=== PATIENT | female | born 1960 | race Caucasian/White ===

== ENCOUNTER → 2016-08-23 | Outpatient (CLI) | payer BC ==
[2014-08-14 03:32] VITALS: BP 174/72
[~2016-08-23] MED LIST: HYDR20TA17 PO; IBUP-1027 PO; IOHEXOL 180 MG/ML 10 ML VIAL. ONE; MULT1TAB52 PO; methylPREDNISolone ACETATE 40 MG/ML VIAL. ONE; methylPREDNISolone ACETATE 80 MG/ML VIAL. ONE
--- NOTE | 2016-08-23 23:55 | PAIN ---
DATE OF SERVICE: 08/23/2016 PROGRESS NOTE FOR PAIN CLINIC DIAGNOSIS: Lumbar radiculopathy with lumbar spinal stenosis, lumbar degenerative disk disease. HISTORY OF PRESENT ILLNESS: The patient is a 55-year-old female who returns for followup status post previous lumbar epidural steroid injections x 2, last seen 04/18/2016. The patient reports she did very well with 100% improvement initially. The pain has returned now over the past 3-4 weeks. The patient reports it is in the low back, bilateral lower extremities, ____ posterior gluteus, posterior thighs, radiating to the anterior thighs occasionally, but mostly in the posterior thighs and lower legs, aching, continuous pain, rates as a 6 on a scale of 10, still sleeping well at night, but is mostly noticeable with increased activity. She has been doing some yardwork with her as we have had some recent rain and better weather and has been increasing her activity with this and has caused some increased pain and radiation into the lower extremities and hips. The patient reports no new motor or sensory deficits, no new bowel or bladder incontinence or other complaints. PHYSICAL EXAMINATION: VITAL SIGNS: The patient's blood pressure is 136/76, pulse 67, respirations 16, temperature is 98.2 degrees Fahrenheit, height is 5 feet 3 inches, weight is 105 pounds. GENERAL: The patient is awake, alert, oriented, appropriate, has a very pleasant demeanor. HEENT: Shows normocephalic, atraumatic. Extraocular movements are intact and symmetrical. Oral cavity shows mucous membranes moist and pink. Dentition is intact. NECK: Shows anterior throat supple without palpable lymphadenopathy noted. Swallow reflex is symmetrical. CHEST: Shows normal on inspection. Breath sounds clear to auscultation bilaterally. HEART: Shows S1 and S2 clear. No murmurs auscultated. ABDOMEN: Soft, nontender, nondistended. No palpable organomegaly is noted. No rebound or guarding demonstrated. BACK: Shows spine grossly in the midline. Lumbar paraspinous musculature shows some moderate tenderness with palpation and very firm, tender musculature bilaterally in the middle and lower distribution of the paraspinous muscles, but only diffusely tender without radiation. The patient shows no tenderness over the sacrum or sacroiliac regions. EXTREMITIES: Lower extremities show deep tendon reflexes 2+ in the patellar and 1+ tendo calcaneus tendons. Motor exam is strong with 5/5 dorsiflexion, extension, quadriceps and hamstring flexion and is equal and symmetrical as well. PLAN: Options were discussed with the patient. The patient's old chart was reviewed as was her current medication regimen and updated. Current review of systems updated today as well. We will proceed with a third in the series of lumbar epidural steroid injection using C-arm fluoroscopic guidance. Risks were discussed including, but not limited to bleeding, infection, possibility of epidural hematoma, subsequent neurological compromise, dural puncture, headaches, spinal cord and/or nerve damage, side effects of steroid medication and poor results regarding pain control. The patient understands and wishes to proceed. The patient will return to the clinic in approximately 2 weeks for followup, was counseled as to return appointment, activity level and side effects to be aware of. DIAGNOSIS: Lumbar radiculopathy with lumbar spinal stenosis, lumbar degenerative disk disease. PROCEDURE: Lumbar epidural steroid injection in translaminar approach with C-arm fluoroscopic guidance under sterile prep and drape using local anesthetic at the L5-S1 level. MEDICATIONS INJECTED: 120 mg Depo-Medrol plus 10 mL of preservative free normal saline and 2 mL of Isovue for contrast. CONDITION AT DISCHARGE: Stable. The patient tolerated the procedure well, had no complications. TREVON FONTANEZ MD DR: KAYLIN/alonzo JOB#: [id number] / [id number]
== END | disposition home or self-care (01) ==
LOC: PNCL 09:33
PROVIDERS: ATTEND Anesthesiology
DX: M51.16 Intervertebral disc disorders with radiculopathy, lumbar region (principal); M48.06 Spinal stenosis, lumbar region
CPT/HCPCS: 62323; J1030; J1040

== ENCOUNTER → 2016-09-12 | Outpatient (CLI) | payer BC ==
[2014-08-14 03:32] VITALS: BP 174/72
[~2016-09-12] MED LIST changes: -IOHEXOL 180 MG/ML 10 ML VIAL. ONE; -methylPREDNISolone ACETATE 40 MG/ML VIAL. ONE; -methylPREDNISolone ACETATE 80 MG/ML VIAL. ONE
--- NOTE | 2016-09-13 02:57 | PN ---
DATE: 09/12/2016 PROGRESS NOTE FOR PAIN CLINIC DIAGNOSES: Lumbar radiculopathy with lumbar spinal stenosis, lumbar degenerative disk disease. HISTORY OF PRESENT ILLNESS: The patient is a 55-year-old female who returns for followup status post lumbar epidural steroid injections x 3, most recently on 08/23/2016. The patient reports doing very well 75% or better improvement after the last injection. The patient reports no new motor or sensory deficits, but some pain in the hips bilaterally with extended walking. [place] the [place] and was walking about 5-1/2 miles and after about the first 2 miles, she began having significant pain in the hips not necessarily in the back or legs, but in the bilateral hips. The patient reports she still has some pain in the back, but it is very manageable, rated as 3 on a scale of 10, but the hip pain is about 6 on a scale of 10. The patient reports it does not awaken her sleep at night. She is sleeping very well, better with lying down or sitting. After the last injection, but the pain in the hips, it is more of a constant pain, sharp and dull and aching when she is weightbearing. The patient has had no history of any hip pathology and has had no diagnostic studies with her hips, but otherwise doing fairly well. The patient reports no new motor or sensory deficits. No new bowel or bladder incontinence or other complaints. PHYSICAL EXAMINATION: VITAL SIGNS: Today, blood pressure is 122/78, pulse is 75, respirations are 18, temperature 99.0 degrees Fahrenheit, height is 5 feet 2 inches, weight is 104 pounds. GENERAL: The patient is awake, alert, oriented, appropriate, very pleasant demeanor. HEENT: Head shows normocephalic, atraumatic. Extraocular movements are intact and symmetrical. Oral cavity, mucous membranes moist and pink. Dentition intact. NECK: Shows anterior throat supple without palpable lymphadenopathy noted. Swallow reflex is symmetrical. CHEST: Shows normal on inspection. Breath sounds clear to auscultation bilaterally. HEART: Shows S1 and S2 clear. ABDOMEN: Soft, nontender, nondistended. No palpable organomegaly. No rebound or guarding demonstrated. BACK: Shows spine grossly in midline. Lumbar paraspinous muscle shows some mild tenderness with palpation only diffusely with palpation in the lower lumbar distribution. EXTREMITIES: The patient's lower extremities show deep tendon reflexes at 2+ in the patellar and 1+ tendo calcaneus tendons are equal. Motor exam is strong with 5/5 dorsiflexion, extension, quadriceps and hamstring flexion equal and symmetrical. The patient's hip shows good rotation and motion both actively and passively without any difficulty with abduction, anterior and posterior flexion. Julien's maneuvers are negative bilaterally. PLAN: Options were discussed with the patient. We will try Medrol Dosepak at this time. As she is eligible for further lumbar epidural steroid injections in September and we will see how the Dosepak does first. She was encouraged to increase her activity as tolerated and keep a diary of how the hip pain does prior to her next visit. We will see her back in about 2 weeks to see how she is feeling at that time. If not significantly improved, we decided we will take x-rays of the hips, but we will see how this does with the Medrol Ermias first. The patient was counseled on activity level as well as side effects to be aware of the medication. We will follow up as scheduled. TREVON FONTANEZ MD DR: KAYLIN/alonzo JOB#: [id number] / [id number]
== END | disposition home or self-care (01) ==
LOC: PNCL 10:10
PROVIDERS: ATTEND Anesthesiology
DX: M51.16 Intervertebral disc disorders with radiculopathy, lumbar region (principal); M48.06 Spinal stenosis, lumbar region
CPT/HCPCS: 99212

== ENCOUNTER → 2016-09-25 | Outpatient (CLI) | payer BC ==
[2014-08-14 03:32] VITALS: BP 174/72
[~2016-09-25] MED LIST changes: +IOHEXOL 180 MG/ML 10 ML VIAL. ONE; +methylPREDNISolone ACETATE 40 MG/ML VIAL. ONE; +methylPREDNISolone ACETATE 80 MG/ML VIAL. ONE
--- NOTE | 2016-09-26 02:19 | PAIN ---
DATE OF SERVICE: 09/25/2016 PROGRESS NOTE FOR PAIN CLINIC DIAGNOSES: Lumbar radiculopathy with lumbar degenerative disk disease and lumbar spinal stenosis. HISTORY OF PRESENT ILLNESS: The patient is a 55-year-old female who returns for followup status post previous lumbar epidural steroid injections. We tried Medrol Dosepak after last visit on 09/12/2016. The patient reports it has not helped significantly, would like to try another injection, this being the first in the series today. The patient is still with significant pain in low back, bilateral lower extremities, hips, anterior thighs, medial thighs, posterior thighs, gluteus and into the lower legs and the calf posteriorly anywhere from 5-9 on a scale of 10, currently of 5. The patient reports aching, sharp, dull, shooting, constant, severe becomes unbearable at times with activity, better with lying down, awakens her from sleep about once or twice at night. She has to get up out of bed and stretch a bit, exercise and get back to bed and she is generally able to sleep for about 4-5 hours at a time between these episodes. The patient reports no new motor or sensory deficits, no new bowel or bladder incontinence or other complaints. PHYSICAL EXAMINATION: VITAL SIGNS: The patient's blood pressure 119/76, pulse 99, and respirations are 18, temperature 98.0 degrees Fahrenheit. Height is 5 feet 3 inches, weight is 103 pounds. GENERAL: The patient is awake, alert, oriented, appropriate, very pleasant demeanor. HEENT: Shows normocephalic, atraumatic. Extraocular movements are intact and symmetrical. Oral cavity shows mucous membranes moist and pink. Dentition is intact. NECK: Shows anterior throat supple without palpable lymphadenopathy noted. Swallow reflex is symmetrical. CHEST: Shows normal on inspection. Breath sounds are clear to auscultation bilaterally. HEART: Shows S1 and S2 clear. No murmurs auscultated. ABDOMEN: Soft, nontender, nondistended. No palpable organomegaly is noted. No rebound or guarding demonstrated. BACK: Shows spine grossly midline, slight flattening of lumbar lordotic curvature with normal appearing thoracic kyphotic curvature. With inspection, lumbar paraspinous muscle shows symmetrical, with palpation is very firm, but with normal muscle girth, but tender diffusely throughout the middle and lower distribution of paraspinous muscles without radiation. No tenderness over the spinous processes, sacrum or sacroiliac regions. EXTREMITIES: The patient's lower extremities showed deep tendon reflexes at 2+ in the patellar, 1+ tendo-calcaneus tendons are equal. Motor exam is 5/5 with dorsiflexion, extension and equal bilaterally. Options were discussed with the patient and the patient's old chart was reviewed as her current medication regimen updated. Current review of systems updated today as well. We will proceed with a lumbar epidural steroid injection today with fluoroscopic guidance as the first in this series. Risks were again discussed including, but not limited to bleeding, infection, possibility of epidural hematoma, subsequent neurologic compromise, dural puncture, headaches, spinal cord and/or nerve damage, side effects of steroid medication and poor results regarding pain control. The patient understands and wishes to proceed. The patient will return to clinic in approximately 2 weeks for followup, was counseled on return appointment, activity level and side effects to be aware of. DIAGNOSES: Lumbar radiculopathy with lumbar spinal stenosis and degenerative disk disease. PROCEDURE: Lumbar epidural steroid injection in translaminar approach at the L5-S1 level using C-arm fluoroscopic guidance under sterile prep and drape using local anesthetic. MEDICATION INJECTED: 120 mg of Depo-Medrol plus 10 mL of preservative-free normal saline and 2 mL of Isovue for contrast. CONDITION AT DISCHARGE: Stable. The patient tolerated procedure well, had no complications. TREVON FONTANEZ MD DR: KAYLIN/alonzo JOB#: [id number] / [id number]
== END | disposition home or self-care (01) ==
LOC: PNCL 11:06
PROVIDERS: ATTEND Anesthesiology
DX: M51.16 Intervertebral disc disorders with radiculopathy, lumbar region (principal); M48.06 Spinal stenosis, lumbar region
CPT/HCPCS: 62323; J1030; J1040

== ENCOUNTER → 2016-10-23 | Outpatient (CLI) | payer BC ==
[2014-08-14 03:32] VITALS: BP 174/72
--- NOTE | 2016-10-24 01:01 | PN ---
DATE: 10/23/2016 PROGRESS NOTE FOR PAIN CLINIC DIAGNOSES: Lumbar radiculopathy with lumbar degenerative disk disease and lumbar spinal stenosis. HISTORY OF PRESENT ILLNESS: The patient is a 55-year-old female who returns for followup status post lumbar epidural steroid injection x 1 in the series. The patient reports about 75% improvement overall in her low back, bilateral lower extremity pain. The patient reports he was doing very well until about the last 2-3 days. The pain is again returning in the low back and legs, worse with walking and standing, ranging from 7-8 on a scale of 10. It is aching, constant, severe, but is on and off, is not persistent. The patient reports she has been sleeping well at night, pain awakens her occasionally, not every night, when does it is about every 2 hours. The patient reports this happened last night and the night before, but not for several weeks before that. The patient reports no new motor or sensory deficits, no new bowel or bladder incontinence or other complaints. PHYSICAL EXAMINATION: VITAL SIGNS: Today, blood pressure is 116/78, pulse 60, respirations are 18, temperature 98.1 degrees Fahrenheit. Height is 5 feet 3 inches, weight is 102 pounds. GENERAL: The patient is awake, alert, oriented, appropriate, has a very pleasant demeanor. HEENT: Head shows normocephalic, atraumatic. Extraocular movements are intact and symmetrical. Oral cavity shows mucous membranes moist and pink. Dentition is intact. NECK: Shows anterior throat supple without palpable lymphadenopathy noted. Swallow reflex is symmetrical. CHEST: Shows normal on inspection. Breath sounds clear to auscultation bilaterally. HEART: Shows S1 and S2 clear. ABDOMEN: Soft, nontender, nondistended. No palpable organomegaly. There is no rebound or guarding demonstrated. BACK: Shows spine grossly in the midline. Lumbar paraspinous muscle shows symmetrical with inspection. The patient has discoloration from heat pad use on the skin. With palpation, she has moderate tenderness with palpation throughout the middle and lower distribution of paraspinous muscle, only diffusely without radiation or asymmetry. No tenderness over the sacrum or sacroiliac regions or the spinous processes. The patient has good rotational motion of the lumbar spine, both laterally as well as extension and flexion without difficulty. EXTREMITIES: Lower extremities show deep tendon reflexes 2+, in the patellar 1+, tendo-calcaneus tendons are equal. Motor exam is strong with 5/5 dorsiflexion, extension, quadriceps and hamstring flexion and symmetrical. Options were discussed with the patient and the patient's old chart was reviewed as her current medication regimen updated. Current review of systems updated today as well. We will proceed with a second lumbar epidural steroid injection today with fluoroscopic guidance. Risks were again discussed including, but not limited to bleeding, infection, possibility of epidural hematoma and subsequent neurologic compromise, dural puncture, headaches, spinal cord and/or nerve damage, side effects of steroid medication and poor results regarding pain control. The patient understands and wishes to proceed. The patient will return to the clinic in approximately 2 weeks for followup, was counseled on return appointment, activity level and side effects to be aware of. DIAGNOSES: Lumbar radiculopathy with lumbar degenerative disk disease and lumbar spinal stenosis. PROCEDURE: Lumbar epidural steroid injection in translaminar approach at the L5-S1 level using C-arm fluoroscopic guidance under sterile prep and drape using local anesthetic. Medication injected is 120 mL Depo-Medrol plus 10 mL preservative free normal saline, 2 mL of Isovue for contrast. CONDITION AT DISCHARGE: Stable. The patient tolerated the procedure well, had no complications. TREVON FONTANEZ MD DR: KAYLIN/alonzo JOB#: [id number] / [id number]
== END | disposition home or self-care (01) ==
LOC: PNCL 07:35
PROVIDERS: ATTEND Anesthesiology
DX: M51.16 Intervertebral disc disorders with radiculopathy, lumbar region (principal); M48.06 Spinal stenosis, lumbar region
CPT/HCPCS: 62323; J1030; J1040

== ENCOUNTER → 2016-12-05 | Outpatient (CLI) | payer BC ==
[2014-08-14 03:32] VITALS: BP 174/72
== END | disposition home or self-care (01) ==
LOC: PNCL 09:11
PROVIDERS: ATTEND Anesthesiology
DX: M51.16 Intervertebral disc disorders with radiculopathy, lumbar region (principal); M48.06 Spinal stenosis, lumbar region
CPT/HCPCS: 62323; J1030; J1040

== ENCOUNTER → 2017-03-01 | Outpatient (CLI) | payer BC ==
[2014-08-14 03:32] VITALS: BP 174/72
[~2017-03-01] MED LIST changes: +BREO ELLIPTA 11 EACH IH; -IOHEXOL 180 MG/ML 10 ML VIAL. ONE; -methylPREDNISolone ACETATE 40 MG/ML VIAL. ONE; -methylPREDNISolone ACETATE 80 MG/ML VIAL. ONE
--- NOTE | 2017-03-01 10:44 | PAIN ---
DATE OF SERVICE: 03/01/2017 PROGRESS NOTE FOR PAIN CLINIC DIAGNOSES: Lumbar radiculopathy with lumbar spinal stenosis and lumbar degenerative disk disease. HISTORY OF PRESENT ILLNESS: The patient is a 56-year-old female who returns for followup status post lumbar epidural steroid injections x 3, most recently on 12/05/2016. The patient reports she had about 75% improvement overall with the injections and the last one was not quite effective as the first one, which was near 100%, which was back in September but doing better. The pain returning now, however, in the low back and bilateral lower extremities, essentially equal but sometimes right greater than left. The patient reports increasing with activity, standing, walking, changing positions, even sitting for more than 15-20 minutes. The patient reports it is better with lying down; however, the pain has almost completely gone. She sleeps well at night, does not having difficulty with it awakens her from sleep. The patient reports her pain at worst is 8 on a scale of 10, is a 5 on average and a 4 on a scale of 10 at the least and is 5 today. The patient reports an aching, sharp and constant in the low back, bilateral lower extremities, again somewhat more on the right side but present bilaterally, posterior gluteus, posterior thighs, lateral thigh and posterior lower legs. The patient reports no new injuries or accidents or other complaints currently. PAST MEDICAL HISTORY: Significant for breast cancer in 2004 with chemotherapy, history of arthritis and also cigarette smoking and the patient continues to smoke about a pack a day. PAST SURGICAL HISTORY: Previous surgeries include double mastectomy and hysterectomy. MEDICATIONS: Updated and well documented on the patient's chart today. ALLERGIES: The patient has no known drug allergies. FAMILY HISTORY: Significant for no major medical problems except for heart disease in her father and hypertension and COPD in the patient's mother. SOCIAL HISTORY: Again, she does smoke about half pack a day, does not drink alcohol, is , lives with her spouse locally. REVIEW OF SYSTEMS: The patient's review of systems is positive for those items mentioned in history of present illness. All systems reviewed and otherwise negative. It is complete, full and well documented on the patient's chart. PHYSICAL EXAMINATION: VITAL SIGNS: Today, the patient's blood pressure is 117/72, pulse 77, respirations 18, temperature 98.3 degrees Fahrenheit. Height is 5 feet 3 inches and weight is 103 pounds. GENERAL: The patient is awake, alert, oriented, appropriate and very pleasant demeanor. HEENT: Head shows normocephalic and atraumatic. Extraocular movements are intact and symmetrical. Oral cavity shows mucous membranes moist and pink. Dentition is intact. NECK: Shows anterior throat supple without palpable lymphadenopathy noted. Swallow reflex is symmetrical. CHEST: Shows normal on inspection. Breath sounds are clear to auscultation bilaterally. HEART: Shows S1 and S2 clear. No murmurs auscultated. ABDOMEN: Soft, nontender and nondistended. No palpable organomegaly. No rebound or guarding demonstrated. BACK: Shows spine grossly midline. Normal appearing thoracic kyphosis, cervical lordotic curvature and lumbar lordotic curvature appears slightly flattened. Lumbar paraspinous musculature shows some [id number] tenderness with palpation but only diffusely in the mid and low lumbar distribution but is quite firm and moderately tender. The patient shows no tenderness over the sacrum or sacroiliac regions. LOWER EXTREMITIES: Showed deep tendon reflexes at 2+ in the patellar and 1+ tendo-calcaneus tendons, are equal. Motor exam is strong with 5/5 dorsiflexion and extension. Peripheral pulses are 2+ in the posterior tibial and dorsalis pedis pulses. No peripheral edema is noted. Options were discussed with the patient. Again, the patient's old chart was reviewed as her current medication regimen updated. Current review of systems updated as noted. She is slightly early for a repeat lumbar epidural steroid injection by several weeks. We will have her return earlier part March for lumbar epidural steroid injections. She has done very well with these in the past. In the meantime, we will try cyclobenzaprine for muscle relaxation. The patient was given instructions as well as side effects to be aware of with the medication. The patient was cautioned as to the potential sedation with the medication as well. Also, encouraged to decrease and essentially quit smoking. The patient reports she is interested in this but is not sure how effective it will be as she smoked for many, many years. The patient will follow up in approximately 3 weeks as scheduled and will plan on lumbar epidural steroid injection at that time. TREVON FONTANEZ MD DR: KAYLIN/alonzo JOB#: [id number] / [id number]
== END | disposition home or self-care (01) ==
LOC: PNCL 08:30
PROVIDERS: ATTEND Anesthesiology
DX: M51.16 Intervertebral disc disorders with radiculopathy, lumbar region (principal); M48.061 Spinal stenosis, lumbar region without neurogenic claudication; Z85.3 Personal history of malignant neoplasm of breast
CPT/HCPCS: 99212

== ENCOUNTER 2017-09-05 15:17 | Emergency (ER) | payer BC ==
[2017-09-05] MEDS: oxyCODONE/APAP 10/325 1 TAB TABLET PO (15:59)
[2017-09-05] MEDS: ONDANSETRON ODT 4 MG TAB.RAPDIS. PO (15:59)
== END 2017-09-05 16:10 | disposition home or self-care (01) ==
LOC: ER 15:17
DX: G89.29 Other chronic pain (principal); M54.89 Other dorsalgia; F17.200 Nicotine dependence, unspecified, uncomplicated
CPT/HCPCS: 99283; Q0162

== ENCOUNTER → 2017-09-17 | Outpatient (CLI) | payer BC ==
[~2017-09-17] MED LIST changes: -BREO ELLIPTA 11 EACH IH; -HYDR20TA17 PO; -IBUP-1027 PO; +IOHEXOL 180 MG/ML 10 ML VIAL.; -MULT1TAB52 PO; +methylPREDNISolone ACETATE 40 MG/ML VIAL.; +methylPREDNISolone ACETATE 80 MG/ML VIAL.
== END | disposition home or self-care (01) ==
LOC: PNCL 08:38
DX: M51.16 Intervertebral disc disorders with radiculopathy, lumbar region (principal); M47.26 Other spondylosis with radiculopathy, lumbar region
CPT/HCPCS: 62323; J1030; J1040; Q9965

== ENCOUNTER → 2018-01-13 | Outpatient (CLI) | payer BC ==
[2017-09-05 15:36] VITALS: BP 147/82
[~2018-01-13] MED LIST changes: +BREO ELLIPTA 11 EACH IH; +HYDR20TA17 PO; +IBUP-1027 PO; -IOHEXOL 180 MG/ML 10 ML VIAL.; +IOHEXOL 180 MG/ML 10 ML VIAL. ONE; +LIDOCAINE 2% PF 2ML VIAL. ONE; +MULT1TAB52 PO; +OXYC-328 PO; +PRED50TA PO; -methylPREDNISolone ACETATE 40 MG/ML VIAL.; +methylPREDNISolone ACETATE 40 MG/ML VIAL. ONE; -methylPREDNISolone ACETATE 80 MG/ML VIAL.; +methylPREDNISolone ACETATE 80 MG/ML VIAL. ONE
--- NOTE | 2018-01-13 12:34 | PAIN ---
DATE OF SERVICE: 01/13/2018 PROGRESS NOTE FOR PAIN CLINIC DIAGNOSES: Lumbar radiculopathy with lumbar spinal stenosis and lumbar degenerative disk disease. HISTORY OF PRESENT ILLNESS: The patient is a 57-year-old female who returns for followup status post lumbar epidural steroid injection x 1. The patient reports about 75% improvement but only lasting for about a week or so. The patient reports usually the pain would be gone for weeks to 2 months at that time. The pain is returning now significantly in the low back, bilateral lower extremities, mostly in the posterior gluteus, posterior thighs, posterior calves and described as a constant, more aching, sharp, dull, shooting and sometimes has some cramping pain as well. The patient reports it is across the low back also and rates it as an 8 on a scale of 10 at its worst, 6 on average and a 4 at its least and is a 6 today. The patient reports no new motor or sensory deficits and no new bowel or bladder incontinence but worse with activity, standing, walking and wakes her from sleep about every 4 hours, which generally has not bothered her in the past. She usually repositioned and gets back to sleep, but the pain is becoming more and more noticeable. The patient reports no new changes. No new deficits. PHYSICAL EXAMINATION: VITAL SIGNS: The patient's blood pressure 116/78, pulse 90, respirations 18, temperature is 97.9 degrees Fahrenheit, height is 5 feet 3 inches and weighs 101 pounds. GENERAL: The patient is awake, alert, oriented, appropriate and very pleasant demeanor. HEENT: Head shows normocephalic and atraumatic. Extraocular movements are intact and symmetrical. Oral cavity: Mucous membranes moist and pink. Dentition intact. NECK: Shows anterior throat supple without palpable lymphadenopathy noted. Swallow reflex is symmetrical. CHEST: Shows normal on inspection. Breath sounds clear to auscultation bilaterally. HEART: Shows S1 and S2 clear. No murmurs auscultated. ABDOMEN: Soft, nontender and nondistended. BACK: Shows spine grossly in the midline, slight flattening of the lumbar lordotic curvature but without previous surgical scars. Lumbar paraspinous musculature shows symmetrical on inspection, on palpation shows some moderate tenderness throughout the upper, middle, lower distribution of the paraspinous muscles, which are firm but without trigger points, without radiation. The patient has good rotational motion of the lumbar spine, both laterally as well as extension and flexion. EXTREMITIES: Lower extremities show deep tendon reflexes at 2+ in the patellar, 1+ tendo-calcaneus tendons. Motor exam is strong with 5/5 dorsiflexion, extension, quadriceps and hamstring flexion and symmetrical. Peripheral pulses are 1+ posterior tibia. No peripheral edema is noted bilaterally. Options were discussed with the patient. The patient's old chart was reviewed as well as her current medication regimen updated. Current review of systems updated today as well. We will proceed with a second in the series of lumbar epidural steroid injection today with fluoroscopic guidance. Risks were again discussed including, but not limited to bleeding, infection, possibility of epidural hematoma, subsequent neurologic compromise, dural puncture, headaches, spinal cord and/or nerve damage, side effects of steroid medication and poor results regarding pain control. The patient understands and wished to proceed. The patient to return to clinic in approximately 2 weeks for followup, was counseled on return appointment, activity level and side effects to be aware of. Also, we will order new MRI scan, it has been over 3 years since she has had any diagnostic studies on her lumbar spine with significant pain without a significant response after her last injection with the pain reduction and continued radiculopathy. The patient was also encouraged to increase her activity as tolerated and maintain stretching and strengthening exercises as well. DIAGNOSES: Lumbar radiculopathy with lumbar spinal stenosis and lumbar degenerative disk disease. PROCEDURES: Lumbar epidural steroid injection, translaminar approach, L5-S1 level using C-arm fluoroscopic guidance under sterile prep and drape using local anesthetic. MEDICATION INJECTED: A total of 120 mg Depo-Medrol plus 10 mL of preservative-free normal saline and 2 mL of Isovue for contrast. CONDITION AT DISCHARGE: Stable. The patient tolerated the procedure well and had no complications. TREVON FONTANEZ MD DR: KAYLIN/alonzo JOB#: [id number] / [id number]
== END | disposition home or self-care (01) ==
LOC: PNCL 08:17
PROVIDERS: ATTEND Anesthesiology
DX: M51.16 Intervertebral disc disorders with radiculopathy, lumbar region (principal); M48.061 Spinal stenosis, lumbar region without neurogenic claudication
CPT/HCPCS: 62323; J1030; J1040; J2001; Q9965

== ENCOUNTER → 2018-01-22 | Outpatient (CLI) | payer BC ==
[2017-09-05 15:36] VITALS: BP 147/82
[~2018-01-22] MED LIST changes: -IOHEXOL 180 MG/ML 10 ML VIAL. ONE; -LIDOCAINE 2% PF 2ML VIAL. ONE; -methylPREDNISolone ACETATE 40 MG/ML VIAL. ONE; -methylPREDNISolone ACETATE 80 MG/ML VIAL. ONE
--- NOTE | 2018-01-22 11:44 | KCIC ---
MRI Lumbar Spine without contrast History: Lumbar radiculopathy, bilateral extremity radiculopathy, previous breast cancer many years ago, low back pain Technique: Multiplanar, multi sequential noncontrast MR imaging was performed of the lumbar spine. Contrast: None Comparison: None Findings: Lumbar vertebral body stature is maintained. There is negligible posterior subluxation L2 relative L3. There is moderate to severe degenerative disc disease at L5-S1, mild degenerative disc disease at more superior levels. There is posterior annular tears at L4-5 and L1-L2 and also anteriorly at L2-L3. There is no significant marrow edema of the lumbar spine. There is a tiny focus of increased STIR signal of the T11 vertebral body too small to accurately characterize at 0.4 cm in size. Conus terminates at T12-L1. T12-L1: Neural foramina and spinal canal are adequate. L1-L2: There are shallow protrusions in the lateral recesses greater on the left, spinal canal overall adequate. Neural foramina are adequate. L2-L3: There is negligible disc osteophyte complex. Spinal canal and neural foramina are adequate. L3-L4: There is negligible bulge. There is mild facet degenerative change. Spinal canal is overall adequate. There is mild neural foramina compromise bilaterally somewhat greater on the left. L4-L5: There is posterior mostly central protrusion, mild indentation upon the ventral thecal sac. There is mild facet degenerative change. There is minimal narrowing of the far left lateral recess. There is mild neural foramina compromise greater on the left. L5-S1: There is negligible posterior bulge without neural impingement. Spinal canal is adequate. There is mild facet hypertrophic change greater on the left. Neural foramina are overall adequate. Impression: 1. There is moderate to severe degenerative disc disease L5-S1, minimally at more superior levels. There is no significant lumbar spinal stenosis, minimal narrowing of the far left lateral recess at L4-5. There is mild neural foramina compromise bilaterally at L3-4 and L4-5. 2. Tiny focus of marrow signal abnormality of the T11 vertebral body is too small to otherwise accurately characterize. Electronically signed by: Pilo Bello MD (01/22/2018 11:40 AM) [id number]
== END | disposition home or self-care (01) ==
LOC: KCIC MRI 09:51
PROVIDERS: ATTEND Anesthesiology
DX: M51.16 Intervertebral disc disorders with radiculopathy, lumbar region (principal); Z85.3 Personal history of malignant neoplasm of breast
CPT/HCPCS: 72148

== ENCOUNTER → 2018-04-01 | Outpatient (CLI) | payer BC ==
[2017-09-05 15:36] VITALS: BP 147/82
[~2018-04-01] MED LIST changes: +IOHEXOL 180 MG/ML 10 ML VIAL. ONE; +methylPREDNISolone ACETATE 40 MG/ML VIAL. ONE; +methylPREDNISolone ACETATE 80 MG/ML VIAL. ONE
--- NOTE | 2018-04-01 22:48 | PAIN ---
DATE OF SERVICE: 04/01/2018 DIAGNOSES: Lumbar radiculopathy with lumbar degenerative disk disease, lumbar spinal stenosis. HISTORY OF PRESENT ILLNESS: The patient is a 57-year-old female who returns for followup status post lumbar epidural steroid injection times 2, last seen 01/13. She did very well with about 70% improvement in the low back, bilateral lower extremity pain. The patient reports slightly worse on the left than the right, but present bilaterally. The patient reports pain is returning now over the past 3-4 weeks in the low back, mostly in the left posterior gluteus, posterior thigh, posterior calf, also on the right side as well, but not as severe. The patient reports pain is 8 on a scale of 10 at its worst, 5 on average, 5 at its least and is a 5 today. The patient it is kind of more constant, aching, shooting, sharp, also dull and aching across the back. The patient reports it wakes her from sleep very rarely, but she does not sleep well, but not secondary to the pain. The patient reports no new motor or sensory deficits, no new bowel or bladder incontinence or other complaints. PHYSICAL EXAMINATION: VITAL SIGNS: The patient's blood pressure 115/70, pulse 93, respirations 18, temperature is 98.3 degrees Fahrenheit, height is 5 feet 3 inches, and weight is 100 pounds. GENERAL: The patient is awake, alert, oriented, appropriate, very pleasant demeanor. HEENT: Head is normocephalic, atraumatic. Extraocular movements are intact, symmetrical. Oral cavity: Mucous membranes moist and pink. Dentition is intact. NECK: Shows anterior throat supple without palpable lymphadenopathy noted. Swallow reflex symmetrical. CHEST: Shows normal with inspection. Breath sounds are clear to auscultation bilaterally. HEART: Shows S1, S2 clear. No murmurs auscultated. ABDOMEN: Soft, nontender, nondistended. No palpable organomegaly is noted. No rebound or guarding demonstrated. BACK: Shows spine grossly in the midline. Normal appearing thoracic kyphosis, some minor flattening of lumbar lordotic curvature. Lumbar paraspinous muscle shows symmetrical on inspection. On palpation shows some moderate tenderness only diffusely without radiation. The patient shows good rotational motion of lumbar spine, both laterally, as well as extension and flexion without difficulty. EXTREMITIES: Lower extremities show deep tendon reflexes are 2+ in the patellar, 1+ tendo calcaneus tendons. Motor exam is strong with 5/5 dorsiflexion, extension, quadriceps and hamstring. Flexion is symmetrical. Peripheral pulses are 1+, posterior tibia. No peripheral edema is noted bilaterally. ASSESSMENT: Options were discussed with the patient. The patient's old chart was reviewed as his current medication regimen and goals and updated. Current review of systems updated today as well. We will proceed with a third in the series of lumbar epidural steroid injection today with fluoroscopic guidance. Risks were again discussed including, but not limited to bleeding, infection, possibility of epidural hematoma and subsequent neurological compromise, dural puncture, headaches, spinal cord and/or nerve damage, side effects of steroid medication and poor results regarding pain control. The patient understands and wished to proceed. The patient will return to clinic in approximately 2 weeks for followup. She was counseled to return appointment, activity level and side effects to be aware of. DIAGNOSIS: Lumbar radiculopathy with lumbar degenerative disk disease, lumbar spinal stenosis. PROCEDURE: Lumbar epidural steroid injection, translaminar approach, L5-S1 level, using C-arm fluoroscopic guidance under sterile prep and drape using local anesthetic. MEDICATION INJECTED: A total of 120 mg Depo-Medrol plus 10 mL of preservative-free normal saline and 2 mL of Isovue for contrast. CONDITION AT DISCHARGE: Stable. The patient tolerated the procedure well, had no complications. TREVON FONTANEZ MD DR: KAYLIN/alonzo JOB#: [id number] / [id number]
== END | disposition home or self-care (01) ==
LOC: PNCL 08:12
PROVIDERS: ATTEND Anesthesiology
DX: M51.16 Intervertebral disc disorders with radiculopathy, lumbar region (principal); M48.061 Spinal stenosis, lumbar region without neurogenic claudication
CPT/HCPCS: 62323; J1030; J1040; Q9965

== ENCOUNTER 2018-08-05 10:59 | Inpatient (IN) | payer BC ==
[~2018-08-05] VITALS: Ht 160 cm; Wt 47.8 kg
[2018-08-05] VITALS (8 sets, daily range): BP systolic 104–132; BP diastolic 57–77
[~2018-08-05 10:59] MED LIST changes: -IOHEXOL 180 MG/ML 10 ML VIAL. ONE; -OXYC-328 PO; +OXYC1TAB22 PO; -methylPREDNISolone ACETATE 40 MG/ML VIAL. ONE; -methylPREDNISolone ACETATE 80 MG/ML VIAL. ONE
[2018-08-05 11:29] LABS: BASO # 0.1 x10^3/uL (0.0-0.2); BASO % 1 % (0-3); EOS % 0 % (0-3); HEMATOCRIT 38.8 % (36.0-47.0); LYMPH # 1.8 x10^3/uL (1.0-4.8); LYMPH % 13 % (24-48); MEAN CORPUSCULAR HEMOGLOBIN 32 pg (25-35); MEAN CORPUSCULAR HGB CONC 34 g/dL (31-37); MEAN CORPUSCULAR VOLUME 94 fL (79-100); MONO # 1.8 x10^3/uL (0.0-1.1); MONO % 13 % (0-9); NEUT # 10.4 x10^3uL (1.8-7.7); NEUT % 74 % (31-73); PLATELET COUNT 215 x10^3/uL (140-400); RED BLOOD COUNT 4.13 x10^6/uL (3.50-5.40); RED CELL DISTRIBUTION WIDTH 14.2 % (11.5-14.5)
[2018-08-05] MEDS ORDERED: MULTIVIT INFUSN,ADULT 4,VIT K 10 ML, THIAMINE INJ 100 MG, FOLIC ACID INJ 1 MG in IV NOR... IV SCH (11:30)
[2018-08-05 11:38] LABS: PROTHROMBIN TIME PATIENT 14.2 SEC (11.7-14.0)
[2018-08-05 11:54] LABS: CALCIUM 8.6 mg/dL (8.5-10.1); CREATININE 0.8 mg/dL (0.6-1.0); GFR 73.9; POTASSIUM 4.1 mmol/L (3.5-5.1)
[2018-08-05 11:59] LABS: ALBUMIN 3.5 g/dL (3.4-5.0); ALBUMIN/GLOBULIN RATIO 0.8 (1.0-1.7); TOTAL PROTEIN 7.7 g/dL (6.4-8.2)
[2018-08-05 12:00] LABS: MAGNESIUM 2.2 mg/dL (1.8-2.4); TOTAL BILIRUBIN 0.9 mg/dL (0.2-1.0)
--- NOTE | 2018-08-05 12:20 | RAD ---
EXAM: CT HEAD WITHOUT IV CONTRAST CLINICAL HISTORY: FOUND ON THE FLOOR THIS MORNING, ACTING CONFUSED. COMPARISON: None. TECHNIQUE: Routine CT of the head without contrast. Soft tissues and bone windows were reviewed. PQRS compliance statement - One or more of the following individualized dose reduction techniques were utilized for this study: 1. Automated exposure control 2. Adjustment of the mA and/or kV according to patient size 3. Use of iterative reconstruction technique FINDINGS: There is no evidence of hemorrhage, mass or extra-axial fluid collection. Chopra-white differentiation is maintained with no evidence of edema. There is no mass effect or shift of the intracranial structures. The ventricles, basilar cisterns and cortical sulci are normal in size and configuration for the patients stated age. The cerebellum and brainstem are unremarkable. The calvarium demonstrates no evidence of fracture or focal lesion. Mastoid air cells are clear. Patchy opacification of the left maxillary sinus, likely sinusitis. Other scarring calcifications of the intracranial internal carotid arteries is seen. The visualized portions of the orbits are normal. IMPRESSION: No evidence for acute intracranial process. Patchy opacification left maxillary sinus, possibly sinusitis. EXAM: CT CERVICAL SPINE WITHOUT IV CONTRAST CLINICAL HISTORY: FOUND ON THE FLOOR THIS MORNING, ACTING CONFUSED. COMPARISON: None available. TECHNIQUE: Helical CT of the cervical spine was performed. Axial, coronal and sagittal reformatted images were also performed. PQRS compliance statement - One or more of the following individualized dose reduction techniques were utilized for this study: 1. Automated exposure control 2. Adjustment of the mA and/or kV according to patient size 3. Use of iterative reconstruction technique FINDINGS: Vertebral body heights are preserved. No evidence for acute fracture. Straightening of the normal cervical lordosis. No significant spondylolisthesis. Moderate C5-6, C6-7 disc height loss. Small associated anterior and posterior endplate osteophytes are seen. Atlantodental degenerative changes are noted. Multilevel degenerative changes are seen. This is most prominent at C5-6 and C6-7 where posterior disc osteophyte complex result in moderate central canal stenosis and at least moderate bilateral neural foraminal narrowing. Biapical emphysematous changes are seen. IMPRESSION: 1. Multilevel spondylosis as above 2. Negative acute fracture or subluxation. Electronically signed by: Amrit Leblanc MD (08/05/2018 12:17 PM) [id number]
--- NOTE | 2018-08-05 13:20 | PHYS DOC ---
Past Medical History Past Medical History: Cancer, Hepatitis, Other Additional Past Medical Histor: back pain Past Surgical History: Other Additional Past Surgical Histo: bilateral mastectomy Alcohol Use: Heavy Additional Information: pt grandson states pt drinks beer and occasional vodka and states when she drinks she drinks about 2-3 24 ounce beers. Drug Use: None Adult General Chief Complaint Chief Complaint: MECHANICAL FALL HPI HPI Patient is a 57 year old female was carrying here for evaluation by her grandson for alcohol withdrawal symptoms. Patient was found on the floor this morning by her acting confused. Prior to that, she was walking to the bathroom, fell down, hit her head and face on the floor. Patient was acting confused and shaky. Patient is an alcoholic, decided not to drink alcohol anymore since last night. Review of Systems Review of Systems Constitutional: Denies fever or chills [] Eyes: Denies change in visual acuity, redness, or eye pain [] HENT: Denies nasal congestion or sore throat [] Respiratory: Denies cough or shortness of breath [] Cardiovascular: No additional information not addressed in HPI [] GI: Denies abdominal pain, nausea, vomiting, bloody stools or diarrhea [] : Denies dysuria or hematuria [] Musculoskeletal: Denies back pain or joint pain [] Integument: Denies rash or skin lesions [] Neurologic: POSITIVE FOR ANXIETY, HAVING HEADACHE, CONFUSED, SHAKINESS, GENERALIZED WEAKNESS. Endocrine: Denies polyuria or polydipsia [] All other systems were reviewed and found to be within normal limits, except as documented in this note. Current Medications Current Medications Current Medications Medications (Trade) Dose Ordered Sig/Deandre Start Time Stop Time Status Last Admin Dose Admin Lorazepam (Ativan) 2 mg 1X ONCE 08/05/18 13:15 08/05/18 13:16 DC 08/05/18 13:15 2 MG Multivitamins 10 ml/Thiamine HCl 100 mg/Folic Acid 1 mg/Sodium Chloride 1,011.2 ml @ 1,000 mls/ hr Q1H 08/05/18 11:30 08/05/18 11:37 DC 08/05/18 11:37 1,000 MLS/HR Ondansetron HCl (Zofran) 4 mg PRN Q8HRS PRN 08/05/18 13:30 08/06/18 13:29 Allergies Allergies Allergies Coded Allergies Type Severity Reaction Last Updated Verified No Known Drug Allergies 08/14/14 No Physical Exam Physical Exam Constitutional: Well developed, well nourished, IN MODERATE DISTRESS, ACTING CONFUSED AND ANXIOUS. She was actively shaking and trembling. HENT: Normocephalic, atraumatic, bilateral external ears normal, oropharynx moist, no oral exudates, nose normal. There is superficial skin contusion on forehead, and chin area. Eyes: PERRLA, EOMI, conjunctiva normal, no discharge. [] Neck: Normal range of motion, no tenderness, supple, no stridor. [] Cardiovascular: Sinus tachycardia, no heart murmur. Lungs & Thorax: Bilateral breath sounds clear to auscultation [] Abdomen: Bowel sounds normal, soft, no tenderness, no masses, no pulsatile masses. [] Skin: Warm, dry, no erythema, no rash. [] Back: No tenderness, no CVA tenderness. [] Extremities: No tenderness, no cyanosis, no clubbing, ROM intact, no edema. [] Neurologic: Patient was awake, but acting confused, moving all extremities, does not follow command. Psychologic: appeared very confused and anxious. Current Patient Data Vital Signs Vital Signs Date Time Temp Pulse Resp B/P (MAP) Pulse Ox O2 Delivery O2 Flow Rate FiO2 08/05/18 13:13 130 20 95 08/05/18 11:05 98.6 160/82 (108) Room Air 98.6 Lab Values Laboratory Tests Test 08/05/18 11:16 08/05/18 13:09 White Blood Count 14.0 x10^3/uL (4.0-11.0) H Red Blood Count 4.13 x10^6/uL (3.50-5.40) Hemoglobin 13.0 g/dL (12.0-15.5) Hematocrit 38.8 % (36.0-47.0) Mean Corpuscular Volume 94 fL (79-100) Mean Corpuscular Hemoglobin 32 pg (25-35) Mean Corpuscular Hemoglobin Concent 34 g/dL (31-37) Red Cell Distribution Width 14.2 % (11.5-14.5) Platelet Count 215 x10^3/uL (140-400) Neutrophils (%) (Auto) 74 % (31-73) H Lymphocytes (%) (Auto) 13 % (24-48) L Monocytes (%) (Auto) 13 % (0-9) H Eosinophils (%) (Auto) 0 % (0-3) Basophils (%) (Auto) 1 % (0-3) Neutrophils # (Auto) 10.4 x10^3uL (1.8-7.7) H Lymphocytes # (Auto) 1.8 x10^3/uL (1.0-4.8) Monocytes # (Auto) 1.8 x10^3/uL (0.0-1.1) H Eosinophils # (Auto) 0.0 x10^3/uL (0.0-0.7) Basophils # (Auto) 0.1 x10^3/uL (0.0-0.2) Prothrombin Time 14.2 SEC (11.7-14.0) H Prothrombin Time INR 1.1 (0.8-1.1) PTT 25 SEC (24-38) Sodium Level 143 mmol/L (136-145) Potassium Level 4.1 mmol/L (3.5-5.1) Chloride Level 105 mmol/L (98-107) Carbon Dioxide Level 21 mmol/L (21-32) Anion Gap 17 (6-14) H Blood Urea Nitrogen 19 mg/dL (7-20) Creatinine 0.8 mg/dL (0.6-1.0) Estimated GFR (Cockcroft-Gault) 73.9 BUN/Creatinine Ratio 24 (6-20) H Glucose Level 119 mg/dL (70-99) H Calcium Level 8.6 mg/dL (8.5-10.1) Magnesium Level 2.2 mg/dL (1.8-2.4) Total Bilirubin 0.9 mg/dL (0.2-1.0) Aspartate Amino Transferase (AST) 430 U/L (15-37) H Alanine Aminotransferase (ALT) 152 U/L (14-59) H Alkaline Phosphatase 106 U/L (46-116) Troponin I Quantitative 0.096 ng/mL (0.000-0.055) Total Protein 7.7 g/dL (6.4-8.2) Albumin 3.5 g/dL (3.4-5.0) Albumin/Globulin Ratio 0.8 (1.0-1.7) L Lipase 159 U/L (73-393) Ethyl Alcohol Level < 10 mg/dL (0-10) Urine Collection Type Unknown Urine Color Yellow Urine Clarity Clear Urine pH 6.0 Urine Specific [place] 1.020 Urine Protein 30 mg/dL (NEG-TRACE) Urine Glucose (UA) Negative mg/dL (NEG) Urine Ketones (Stick) 15 mg/dL (NEG) Urine Blood Large (NEG) Urine Nitrite Negative (NEG) Urine Bilirubin Negative (NEG) Urine Urobilinogen Dipstick 0.2 mg/dL (0.2 mg/dL) Urine Leukocyte Esterase Negative (NEG) Urine RBC 3-5 /HPF (0-2) Urine WBC 5-10 /HPF (0-4) Urine Squamous Epithelial Cells Few /LPF Urine Bacteria Mod /HPF (0-FEW) Urine Hyaline Casts Moderate /HPF Urine Opiates Screen Neg (NEG) Urine Methadone Screen Neg (NEG) Urine Barbiturates Neg (NEG) Urine Phencyclidine Screen Neg (NEG) Urine Amphetamine/Methamphetamine Neg (NEG) Urine Benzodiazepines Screen Neg (NEG) Urine Cocaine Screen Neg (NEG) Urine Cannabinoids Screen Neg (NEG) Urine Ethyl Alcohol Pos (NEG) Laboratory Tests 08/05/18 11:16 Laboratory Tests 08/05/18 11:16 EKG EKG [] Radiology/Procedures Radiology/Procedures [][facility] [address], [place] [id number] IMAGING REPORT Signed PATIENT: JOCELYNN SINGH ACCOUNT: [id number] : 1960 LOCATION: ER AGE: 57 SEX: F EXAM STATUS: REG ER ORD. PHYSICIAN: VENICE COLE DO REASON: FOUND ON THE FLOOR THIS MORNING, ACTING CONFUSED. PROCEDURE: CT HEAD AND CERVICAL SPINE WO EXAM: CT HEAD WITHOUT IV CONTRAST CLINICAL HISTORY: FOUND ON THE FLOOR THIS MORNING, ACTING CONFUSED. COMPARISON: None. TECHNIQUE: Routine CT of the head without contrast. Soft tissues and bone windows were reviewed. PQRS compliance statement - One or more of the following individualized dose reduction techniques were utilized for this study: 1. Automated exposure control 2. Adjustment of the mA and/or kV according to patient size 3. Use of iterative reconstruction technique FINDINGS: There is no evidence of hemorrhage, mass or extra-axial fluid collection. Chopra-white differentiation is maintained with no evidence of edema. There is no mass effect or shift of the intracranial structures. The ventricles, basilar cisterns and cortical sulci are normal in size and configuration for the patients stated age. The cerebellum and brainstem are unremarkable. The calvarium demonstrates no evidence of fracture or focal lesion. Mastoid air cells are clear. Patchy opacification of the left maxillary sinus, likely sinusitis. Other scarring calcifications of the intracranial internal carotid arteries is seen. The visualized portions of the orbits are normal. IMPRESSION: No evidence for acute intracranial process. Patchy opacification left maxillary sinus, possibly sinusitis. EXAM: CT CERVICAL SPINE WITHOUT IV CONTRAST CLINICAL HISTORY: FOUND ON THE FLOOR THIS MORNING, ACTING CONFUSED. COMPARISON: None available. TECHNIQUE: Helical CT of the cervical spine was performed. Axial, coronal and sagittal reformatted images were also performed. PQRS compliance statement - One or more of the following individualized dose reduction techniques were utilized for this study: 1. Automated exposure control 2. Adjustment of the mA and/or kV according to patient size 3. Use of iterative reconstruction technique FINDINGS: Vertebral body heights are preserved. No evidence for acute fracture. Straightening of the normal cervical lordosis. No significant spondylolisthesis. Moderate C5-6, C6-7 disc height loss. Small associated anterior and posterior endplate osteophytes are seen. Atlantodental degenerative changes are noted. Multilevel degenerative changes are seen. This is most prominent at C5-6 and C6-7 where posterior disc osteophyte complex result in moderate central canal stenosis and at least moderate bilateral neural foraminal narrowing. Biapical emphysematous changes are seen. IMPRESSION: 1. Multilevel spondylosis as above 2. Negative acute fracture or subluxation. Electronically signed by: Amrit Osuna MD (08/05/2018 12:17 PM) [id number] DICTATED and SIGNED BY: AMRIT OSUNA MD DATE: 08/05/18 1210 CLINICAL HISTORY: FALL, FACIAL PAIN, NO PRIORS COMPARISON: None available. TECHNIQUE: Helical CT of the face/paranasal sinuses was acquired and axial, coronal and sagittal reformatted images were generated. ---PQRS compliance statement - One or more of the following individualized dose reduction techniques were utilized for this study: 1. Automated exposure control 2. Adjustment of the mA and/or kV according to patient size 3. Use of iterative reconstruction technique--- FINDINGS: Minimal deformity of the nasal bone likely nondisplaced fracture, age-indeterminate. No additional facial bone fracture is definitively identified. There is opacification of the left maxillary sinus measures associated fluid density, possibly from sinusitis. No associated fracture is seen. Visualized portions of the mastoid air cells are clear. The orbits are normal. Specifically the globes, extraocular muscles, optic nerves and retrobulbar fat are normal. Visualized upper aerodigestive tract is normal. Mandible and bilateral temporomandibular joints are normal. Debris is seen within the right ear canal IMPRESSION: 1. No evidence for acute facial bone fracture. 2. Opacification left maxillary sinus, possibly sinusitis. Electronically signed by: Amrit Osuna MD (08/05/2018 2:30 PM) [id number] DICTATED and SIGNED BY: AMRIT OSUNA MD DATE: 08/05/18 1430 Course & Med Decision Making Course & Med Decision Making Pertinent Labs and Imaging studies reviewed. (See chart for details) [] Dragon Disclaimer Dragon Disclaimer This electronic medical record was generated, in whole or in part, using a voice recognition dictation system. Departure Departure Impression: Primary Impression: Alcohol withdrawal delirium Disposition: ADMITTED INPATIENT Admitting Physician: Mayte Lemus Condition: IMPROVED Referrals: MAYTE LEMUS MD (PCP) VENICE COLE DO Aug 05, 2018 13:20
[2018-08-05 13:22] LABS: BILIRUBIN,URINE NEGATIVE (NEG); CLARITY,URINE CLEAR; COLOR,URINE YELLOW; NITRITE,URINE NEGATIVE (NEG); PROTEIN,URINE 30 mg/dL (NEG-TRACE); UROBILINOGEN,URINE 0.2 mg/dL (0.2 mg/dL)
[2018-08-05 13:28] LABS: BACTERIA,URINE MOD /HPF (0-FEW); BARBITURATES NEG (NEG); BENZODIAZEPINES NEG (NEG); CANNABINOIDS NEG (NEG); COCAINE NEG (NEG); HYALINE CASTS, URINE MODERATE /HPF; METHADONE NEG (NEG); OPIATES NEG (NEG); PHENCYCLIDINE NEG (NEG); SQUAMOUS EPITHELIAL CELL,UR FEW /LPF
[2018-08-05 13:29] LABS: AMPHETAMINE/METHAMPHETAMINE NEG (NEG)
[2018-08-05] MEDS ORDERED: ONDANSETRON PF 4 MG/2 ML VIAL. IV PRN (13:30)
--- NOTE | 2018-08-05 14:33 | RAD ---
CLINICAL HISTORY: FALL, FACIAL PAIN, NO PRIORS COMPARISON: None available. TECHNIQUE: Helical CT of the face/paranasal sinuses was acquired and axial, coronal and sagittal reformatted images were generated. ---PQRS compliance statement - One or more of the following individualized dose reduction techniques were utilized for this study: 1. Automated exposure control 2. Adjustment of the mA and/or kV according to patient size 3. Use of iterative reconstruction technique--- FINDINGS: Minimal deformity of the nasal bone likely nondisplaced fracture, age-indeterminate. No additional facial bone fracture is definitively identified. There is opacification of the left maxillary sinus measures associated fluid density, possibly from sinusitis. No associated fracture is seen. Visualized portions of the mastoid air cells are clear. The orbits are normal. Specifically the globes, extraocular muscles, optic nerves and retrobulbar fat are normal. Visualized upper aerodigestive tract is normal. Mandible and bilateral temporomandibular joints are normal. Debris is seen within the right ear canal IMPRESSION: 1. No evidence for acute facial bone fracture. 2. Opacification left maxillary sinus, possibly sinusitis. Electronically signed by: Amrit Leblanc MD (08/05/2018 2:30 PM) [id number]
--- NOTE | 2018-08-05 14:42 | EKG ---
[facility] [address] [place] [address] Test Date: 2018-08-05 Test Time: 11:27:42 Pat Name: JOCELYNN SINGH Department: Room: Gender: F Scallop Raker: : 1960 Requested By: VENICE COLE Order Number: [id number] Reading MD: Robbie Khan MD Measurements Intervals [place] Rate: 123 P: -129 [place]: 130 QRS: 24 QRSD: 120 T: 77 QT: 350 QTc: 507 Interpretive Statements SVT [id number] Electronically Signed On 08-08-2018 16:08:45 CDT by Robbie Khan MD
--- NOTE | 2018-08-05 15:01 | NUR ---
Patient arrived to unit from ED via gurney. Patient tolerating prn ativan well. Patient is resting with at bedside. Patient history done with family. Patient is alert to self and place but remains slightly confused about time and day. Patient is a high fall risk with multiple falls at home. PT/OT consulted to evaluate patient need at discharge. SW consulted to assist in discharge planning as patient my need home health after discharge and to provide patient with resources to deal with ETOH abuse. Vital signs BP 119/69 rate of 109, O2 96% on room air.
[2018-08-05] MEDS: IV NORMAL SALINE 1000ML BAG 1,000 ML IV SCH (18:08)
[2018-08-06] VITALS (25 sets, daily range): BP systolic 110–142; BP diastolic 52–76
[2018-08-06] MEDS: IV NORMAL SALINE 1000ML BAG 1,000 ML IV SCH (02:57)
--- NOTE | 2018-08-06 03:19 | NUR ---
CIWA was completed every hour, ativan given when appropriate. Notified Dr. Lau that CIWA was elevated more consistently despite the ativan, orders received.
[2018-08-06 06:19] LABS: CALCIUM 7.7 mg/dL (8.5-10.1); CREATININE 0.6 mg/dL (0.6-1.0); POTASSIUM 3.5 mmol/L (3.5-5.1)
--- NOTE | 2018-08-06 07:10 | PDOC1 ---
History and Physical Date of Admission Date of Admission 08/05/18 Identification/Chief Complaint Chief Complaint Shakes/Confusion Source Source: Chart review History of Present Illness History of Present Illness Pt is not able to participate in history taking or in physical exam. She is still very confused this morning. Per chart review pt stopped drinking the night before and was found on the ground by her yesterday morning confused. Pt is unable to tell me what brought her into the hospital, stating that it has been months since she drank last and that she is doing okay. Pt has hepatitis C and was supposed to be meeting with liver specialist at yesterday. Past Medical History Cardiovascular: Hyperlipidemia Pulmonary: COPD CENTRAL NERVOUS SYSTEM: Periperal neuropathy GI: No pertinent hx Heme/Onc: Cancer Hepatobiliary: Cirrhosis, Hep A/B/C Psych: Anxiety Rheumatologic: No pertinent hx Infectious disease: No pertinent hx ENT: No pertinent hx Renal/: No pertinent hx Endocrine: No pertinent hx Dermatology: No pertinent hx Past Surgical History Past Surgical History: Mastectomy, Hysterectomy Family History Family History: Chronic Bronchitis, Heart Disease, Hypertension Social History Smoke: Quit ALCOHOL: heavy Drugs: None Current Problem List Problem List Problems Medical Problems: (1) Alcohol withdrawal delirium Status: Acute Current Medications Current Medications Current Medications Medications (Trade) Dose Ordered Sig/Deandre Start Time Stop Time Status Last Admin Dose Admin Folic Acid (Folic Acid) 1 mg DAILY 08/11/18 09:00 Lorazepam (Ativan) 4 mg PRN Q1HR PRN 08/06/18 03:00 08/06/18 04:33 4 MG Multivitamins (Thera M Plus) 1 tab DAILY 08/11/18 09:00 Multivitamins 10 ml/Thiamine HCl 100 mg/Folic Acid 1 mg/Sodium Chloride 1,011.2 ml @ 100 mls/ hr DAILY 08/06/18 09:00 08/10/18 19:07 Ondansetron HCl (Zofran) 4 mg PRN Q8HRS PRN 08/05/18 13:30 08/06/18 13:29 Sodium Chloride 1,000 ml @ 100 mls/hr Q10H 08/05/18 17:30 08/06/18 09:00 08/06/18 02:57 100 MLS/HR Thiamine HCl 100 mg/Dextrose 51 ml @ 100 mls/hr DAILY 08/06/18 09:00 08/10/18 09:31 UNV Allergies Allergies Allergies Coded Allergies Type Severity Reaction Last Updated Verified No Known Drug Allergies 08/14/14 No ROS Review of System Unable to get full ROS due to pt's current mental status Physical Exam Physical Exam GEN.: moderate tremors. Confused HEENT: Head is normocephalic, multiple ecchymoses NECK: Supple. LUNGS: Clear to auscultation. HEART: RRR, S1, S2 present. Peripheral pulses intact ABDOMEN: Soft, nontender. Positive bowel sounds. EXTREMITIES: Without any cyanosis. NEUROLOGIC: unable to fully evaluate due to pt's current condition PSYCHIATRIC: unable to fully evaluate SKIN: No ulcerations Vitals Vitals Vital Signs Date Time Temp Pulse Resp B/P (MAP) Pulse Ox O2 Delivery O2 Flow Rate FiO2 08/06/18 06:00 93 18 141/67 (91) 92 Room Air 08/06/18 04:00 98.7 98.7 Labs Labs Laboratory Tests Test 08/05/18 11:16 08/05/18 13:09 08/06/18 05:10 White Blood Count 14.0 x10^3/uL (4.0-11.0) Red Blood Count 4.13 x10^6/uL (3.50-5.40) Hemoglobin 13.0 g/dL (12.0-15.5) Hematocrit 38.8 % (36.0-47.0) Mean Corpuscular Volume 94 fL (79-100) Mean Corpuscular Hemoglobin 32 pg (25-35) Mean Corpuscular Hemoglobin Concent 34 g/dL (31-37) Red Cell Distribution Width 14.2 % (11.5-14.5) Platelet Count 215 x10^3/uL (140-400) Neutrophils (%) (Auto) 74 % (31-73) Lymphocytes (%) (Auto) 13 % (24-48) Monocytes (%) (Auto) 13 % (0-9) Eosinophils (%) (Auto) 0 % (0-3) Basophils (%) (Auto) 1 % (0-3) Neutrophils # (Auto) 10.4 x10^3uL (1.8-7.7) Lymphocytes # (Auto) 1.8 x10^3/uL (1.0-4.8) Monocytes # (Auto) 1.8 x10^3/uL (0.0-1.1) Eosinophils # (Auto) 0.0 x10^3/uL (0.0-0.7) Basophils # (Auto) 0.1 x10^3/uL (0.0-0.2) Prothrombin Time 14.2 SEC (11.7-14.0) Prothromb Time International Ratio 1.1 (0.8-1.1) Activated Partial Thromboplast Time 25 SEC (24-38) Sodium Level 143 mmol/L (136-145) 141 mmol/L (136-145) Potassium Level 4.1 mmol/L (3.5-5.1) 3.5 mmol/L (3.5-5.1) Chloride Level 105 mmol/L (98-107) 105 mmol/L (98-107) Carbon Dioxide Level 21 mmol/L (21-32) 24 mmol/L (21-32) Anion Gap 17 (6-14) 12 (6-14) Blood Urea Nitrogen 19 mg/dL (7-20) 16 mg/dL (7-20) Creatinine 0.8 mg/dL (0.6-1.0) 0.6 mg/dL (0.6-1.0) Estimated GFR (Cockcroft-Gault) 73.9 103.0 BUN/Creatinine Ratio 24 (6-20) Glucose Level 119 mg/dL (70-99) 94 mg/dL (70-99) Calcium Level 8.6 mg/dL (8.5-10.1) 7.7 mg/dL (8.5-10.1) Magnesium Level 2.2 mg/dL (1.8-2.4) Total Bilirubin 0.9 mg/dL (0.2-1.0) Aspartate Amino Transf (AST/SGOT) 430 U/L (15-37) Alanine Aminotransferase (ALT/SGPT) 152 U/L (14-59) Alkaline Phosphatase 106 U/L (46-116) Troponin I Quantitative 0.096 ng/mL (0.000-0.055) Total Protein 7.7 g/dL (6.4-8.2) Albumin 3.5 g/dL (3.4-5.0) Albumin/Globulin Ratio 0.8 (1.0-1.7) Lipase 159 U/L (73-393) Ethyl Alcohol Level < 10 mg/dL (0-10) Urine Collection Type Unknown Urine Color Yellow Urine Clarity Clear Urine pH 6.0 Urine Specific Paulina 1.020 Urine Protein 30 mg/dL (NEG-TRACE) Urine Glucose (UA) Negative mg/dL (NEG) Urine Ketones (Stick) 15 mg/dL (NEG) Urine Blood Large (NEG) Urine Nitrite Negative (NEG) Urine Bilirubin Negative (NEG) Urine Urobilinogen Dipstick 0.2 mg/dL (0.2 mg/dL) Urine Leukocyte Esterase Negative (NEG) Urine RBC 3-5 /HPF (0-2) Urine WBC 5-10 /HPF (0-4) Urine Squamous Epithelial Cells Few /LPF Urine Bacteria Mod /HPF (0-FEW) Urine Hyaline Casts Moderate /HPF Urine Opiates Screen Neg (NEG) Urine Methadone Screen Neg (NEG) Urine Barbiturates Neg (NEG) Urine Phencyclidine Screen Neg (NEG) Urine Amphetamine/Methamphetamine Neg (NEG) Urine Benzodiazepines Screen Neg (NEG) Urine Cocaine Screen Neg (NEG) Urine Cannabinoids Screen Neg (NEG) Urine Ethyl Alcohol Pos (NEG) Laboratory Tests Test 08/05/18 11:16 08/05/18 13:09 08/06/18 05:10 White Blood Count 14.0 x10^3/uL (4.0-11.0) Red Blood Count 4.13 x10^6/uL (3.50-5.40) Hemoglobin 13.0 g/dL (12.0-15.5) Hematocrit 38.8 % (36.0-47.0) Mean Corpuscular Volume 94 fL (79-100) Mean Corpuscular Hemoglobin 32 pg (25-35) Mean Corpuscular Hemoglobin Concent 34 g/dL (31-37) Red Cell Distribution Width 14.2 % (11.5-14.5) Platelet Count 215 x10^3/uL (140-400) Neutrophils (%) (Auto) 74 % (31-73) Lymphocytes (%) (Auto) 13 % (24-48) Monocytes (%) (Auto) 13 % (0-9) Eosinophils (%) (Auto) 0 % (0-3) Basophils (%) (Auto) 1 % (0-3) Neutrophils # (Auto) 10.4 x10^3uL (1.8-7.7) Lymphocytes # (Auto) 1.8 x10^3/uL (1.0-4.8) Monocytes # (Auto) 1.8 x10^3/uL (0.0-1.1) Eosinophils # (Auto) 0.0 x10^3/uL (0.0-0.7) Basophils # (Auto) 0.1 x10^3/uL (0.0-0.2) Prothrombin Time 14.2 SEC (11.7-14.0) Prothromb Time International Ratio 1.1 (0.8-1.1) Activated Partial Thromboplast Time 25 SEC (24-38) Sodium Level 143 mmol/L (136-145) 141 mmol/L (136-145) Potassium Level 4.1 mmol/L (3.5-5.1) 3.5 mmol/L (3.5-5.1) Chloride Level 105 mmol/L (98-107) 105 mmol/L (98-107) Carbon Dioxide Level 21 mmol/L (21-32) 24 mmol/L (21-32) Anion Gap 17 (6-14) 12 (6-14) Blood Urea Nitrogen 19 mg/dL (7-20) 16 mg/dL (7-20) Creatinine 0.8 mg/dL (0.6-1.0) 0.6 mg/dL (0.6-1.0) Estimated GFR (Cockcroft-Gault) 73.9 103.0 BUN/Creatinine Ratio 24 (6-20) Glucose Level 119 mg/dL (70-99) 94 mg/dL (70-99) Calcium Level 8.6 mg/dL (8.5-10.1) 7.7 mg/dL (8.5-10.1) Magnesium Level 2.2 mg/dL (1.8-2.4) Total Bilirubin 0.9 mg/dL (0.2-1.0) Aspartate Amino Transf (AST/SGOT) 430 U/L (15-37) Alanine Aminotransferase (ALT/SGPT) 152 U/L (14-59) Alkaline Phosphatase 106 U/L (46-116) Troponin I Quantitative 0.096 ng/mL (0.000-0.055) Total Protein 7.7 g/dL (6.4-8.2) Albumin 3.5 g/dL (3.4-5.0) Albumin/Globulin Ratio 0.8 (1.0-1.7) Lipase 159 U/L (73-393) Ethyl Alcohol Level < 10 mg/dL (0-10) Urine Collection Type Unknown Urine Color Yellow Urine Clarity Clear Urine pH 6.0 Urine Specific Paulina 1.020 Urine Protein 30 mg/dL (NEG-TRACE) Urine Glucose (UA) Negative mg/dL (NEG) Urine Ketones (Stick) 15 mg/dL (NEG) Urine Blood Large (NEG) Urine Nitrite Negative (NEG) Urine Bilirubin Negative (NEG) Urine Urobilinogen Dipstick 0.2 mg/dL (0.2 mg/dL) Urine Leukocyte Esterase Negative (NEG) Urine RBC 3-5 /HPF (0-2) Urine WBC 5-10 /HPF (0-4) Urine Squamous Epithelial Cells Few /LPF Urine Bacteria Mod /HPF (0-FEW) Urine Hyaline Casts Moderate /HPF Urine Opiates Screen Neg (NEG) Urine Methadone Screen Neg (NEG) Urine Barbiturates Neg (NEG) Urine Phencyclidine Screen Neg (NEG) Urine Amphetamine/Methamphetamine Neg (NEG) Urine Benzodiazepines Screen Neg (NEG) Urine Cocaine Screen Neg (NEG) Urine Cannabinoids Screen Neg (NEG) Urine Ethyl Alcohol Pos (NEG) VTE Prophylaxis Ordered VTE Prophylaxis Devices: No VTE Pharmacological Prophylaxi: No Assessment/Plan Assessment/Plan Pt is a 57yo CF admitted for altered mental status thought to be 2/2 alcohol withdrawal 1)Altered Mental Status- thought to be 2/2 alcohol withdrawal. Will try to get ahold of today to get more recent history. Was doing well the last time she was seen in clinic in May. Currently getting 4mg of Lorazepam 2)Cirrhosis 2/2 Hepatitis C- will get NH4 level. Liver enzymes more elevated than normal 3)COPD- will have breathing treatments available 4)HLD- pt not on any medication at this time, has been working on diet 5)Elevated troponin- will trend 6)Chronic back pain- pt normally received injections from Dr. Tao. No pain medication for now 7)Hx Breast Cancer ELPIDIO HOPKINS MD Aug 06, 2018 07:10
[2018-08-06] MEDS ORDERED: ALBUTEROL SULFATE 2.5 MG/3 ML NEBU. NEB PRN (07:15)
[2018-08-06] MEDS: AMOXICILLIN/K CLAV 875/125MG TABLET. PO SCH ×2 (08:00→20:30)
[2018-08-06] MEDS: MULTIVIT INFUSN,ADULT 4,VIT K 10 ML, THIAMINE INJ 100 MG, FOLIC ACID INJ 1 MG in IV NOR... IV SCH (08:03)
[2018-08-06] MEDS: LACTOBACILLUS RHAMNOSUS GG 1 CAPSULE. PO SCH ×2 (08:26→20:30)
[2018-08-06] MEDS ORDERED: THIAMINE INJ 100 MG in IV DEXTROSE 5% 50 ML IV SCH (09:00)
[2018-08-06] MEDS: BUDESONIDE 0.5 MG/2 ML NEBU. NEB SCH ×2 (09:18→20:00)
[2018-08-06] MEDS: NICOTINE 21MG PATCH. TD SCH (18:11)
[2018-08-07] VITALS (10 sets, daily range): BP systolic 112–140; BP diastolic 60–77
[2018-08-07 04:06] LABS: BASO % 1 % (0-3); EOS # 0.1 x10^3/uL (0.0-0.7); EOS % 2 % (0-3); HEMATOCRIT 33.6 % (36.0-47.0); HEMOGLOBIN 11.5 g/dL (12.0-15.5); LYMPH # 1.2 x10^3/uL (1.0-4.8); LYMPH % 31 % (24-48); MEAN CORPUSCULAR HEMOGLOBIN 32 pg (25-35); MEAN CORPUSCULAR HGB CONC 34 g/dL (31-37); MEAN CORPUSCULAR VOLUME 95 fL (79-100); MONO # 0.3 x10^3/uL (0.0-1.1); MONO % 8 % (0-9); NEUT # 2.3 x10^3uL (1.8-7.7); NEUT % 59 % (31-73); PLATELET COUNT 97 x10^3/uL (140-400); RED BLOOD COUNT 3.55 x10^6/uL (3.50-5.40); RED CELL DISTRIBUTION WIDTH 13.9 % (11.5-14.5); WHITE BLOOD COUNT 3.9 x10^3/uL (4.0-11.0)
[2018-08-07 04:32] LABS: ALBUMIN 2.6 g/dL (3.4-5.0); ALBUMIN/GLOBULIN RATIO 0.7 (1.0-1.7); CALCIUM 7.7 mg/dL (8.5-10.1); CREATININE 0.6 mg/dL (0.6-1.0); POTASSIUM 3.3 mmol/L (3.5-5.1); TOTAL BILIRUBIN 1.2 mg/dL (0.2-1.0); TOTAL PROTEIN 6.4 g/dL (6.4-8.2)
--- NOTE | 2018-08-07 07:13 | PDOC ---
SUBJECTIVE Subjective Pt is much more with it today, although still having significant shakes. She has required large amount of Ativan over the past 24 hours. States that she has double vision and non specific weakness. Pain in her feet, legs and ankles. Talked to pt's yesterday who said that she went on a drinking binge that started on Saturday. Last drinks that he knew of was Saturday afternoon. He stated that wasn't drinking as much as she has in the past. Normally she will go on a 4-5 day binge of drinking every 3-4 weeks. She will sometimes gets the shakes after but they are minor. He has never seen her like she was on Saturday and was concerned that she might have had a stroke. Pt also states that she has never been like this before and is worried that something else may be going on. OBJECTIVE Vital Signs Vital Signs Date Time Temp Pulse Resp B/P (MAP) Pulse Ox O2 Delivery O2 Flow Rate FiO2 08/07/18 06:00 93 19 120/60 (80) 96 Room Air 08/07/18 05:00 110 14 132/66 (88) 99 Room Air 08/07/18 04:11 Room Air 08/07/18 04:11 98.4 100 18 133/70 (91) 96 Room Air 98.4 08/07/18 03:00 101 18 131/68 (89) 99 Room Air 08/07/18 02:00 92 20 112/60 (77) 98 Room Air 08/07/18 01:00 94 19 122/66 (84) 94 Room Air 08/06/18 23:59 98.4 100 18 132/73 (92) 100 Room Air 98.4 08/06/18 23:59 Room Air 08/06/18 23:59 98.4 100 18 132/73 (92) 100 Room Air 98.4 08/06/18 23:00 110 20 139/69 (92) 98 Room Air 08/06/18 22:00 95 19 119/69 (86) 95 Room Air 08/06/18 21:00 95 14 120/52 (74) 95 Room Air 08/06/18 20:00 98.4 94 16 118/67 (84) 96 Room Air 98.4 08/06/18 20:00 Room Air 08/06/18 19:57 96 Room Air 08/06/18 19:00 93 18 121/61 (81) 93 Room Air 08/06/18 18:00 99 22 126/61 (82) 93 Room Air 08/06/18 17:00 99.0 106 21 133/68 (89) 94 Room Air 99.0 08/06/18 16:00 96 17 127/66 (86) 94 Room Air 08/06/18 16:00 Room Air 08/06/18 15:00 108 19 142/75 (97) 93 Room Air 08/06/18 14:00 95 17 126/66 (86) 92 Room Air 08/06/18 13:00 93 17 113/68 (83) 94 Room Air 08/06/18 12:00 Room Air 08/06/18 12:00 99.1 104 26 141/66 (91) 95 Room Air 99.1 08/06/18 11:00 92 17 136/76 (96) 94 Room Air 08/06/18 10:00 91 16 119/67 (84) 94 Room Air 08/06/18 09:19 94 Room Air 08/06/18 09:00 90 18 123/74 (90) 96 Room Air 08/06/18 08:00 98.7 89 19 123/73 (90) 98 Room Air 98.7 08/06/18 08:00 Room Air I & O Intake and Output 08/07/18 07:00 Intake Total 1740 ml Output Total 2200 ml Balance -460 ml Intake Oral 740 ml IV Total 1000 ml Output Urine Total 2200 ml # Bowel Movements 1 PHYSICAL EXAM Physical Exam GEN.: moderate tremors. NAD, AOx3 HEENT: Head is normocephalic, multiple ecchymoses NECK: Supple. LUNGS: Clear to auscultation. HEART: RRR, S1, S2 present. Peripheral pulses intact ABDOMEN: Soft, nontender. Positive bowel sounds. EXTREMITIES: Without any cyanosis. NEUROLOGIC: CN2-12 appear to be fully intact PSYCHIATRIC: normal mood and affect SKIN: No ulcerations ASSESSMENT/PLAN Assessment/Plan Pt is a 57yo CF admitted for altered mental status thought to be 2/2 alcohol withdrawal 1)Altered Mental Status- thought to be 2/2 alcohol withdrawal. Improving. Pt has received large amount of Lorazepam. Transfer to the floor today 2)Cirrhosis 2/2 Hepatitis C- NH4 levels WNL 3)COPD- will have breathing treatments available 4)HLD- pt not on any medication at this time, has been working on diet 5)Elevated troponin- trend starting to decrease, no c/o chest pain 6)Chronic back pain- pt normally received injections from Dr. Tao. No pain medication for now 7)Hx Breast Cancer COMMENT Lab Laboratory Tests Test 08/06/18 11:20 08/07/18 03:40 Ammonia 23 mcmol/L (11-34) Troponin I Quantitative 0.085 ng/mL (0.000-0.055) White Blood Count 3.9 x10^3/uL (4.0-11.0) Red Blood Count 3.55 x10^6/uL (3.50-5.40) Hemoglobin 11.5 g/dL (12.0-15.5) Hematocrit 33.6 % (36.0-47.0) Mean Corpuscular Volume 95 fL (79-100) Mean Corpuscular Hemoglobin 32 pg (25-35) Mean Corpuscular Hemoglobin Concent 34 g/dL (31-37) Red Cell Distribution Width 13.9 % (11.5-14.5) Platelet Count 97 x10^3/uL (140-400) Neutrophils (%) (Auto) 59 % (31-73) Lymphocytes (%) (Auto) 31 % (24-48) Monocytes (%) (Auto) 8 % (0-9) Eosinophils (%) (Auto) 2 % (0-3) Basophils (%) (Auto) 1 % (0-3) Neutrophils # (Auto) 2.3 x10^3uL (1.8-7.7) Lymphocytes # (Auto) 1.2 x10^3/uL (1.0-4.8) Monocytes # (Auto) 0.3 x10^3/uL (0.0-1.1) Eosinophils # (Auto) 0.1 x10^3/uL (0.0-0.7) Basophils # (Auto) 0.0 x10^3/uL (0.0-0.2) Sodium Level 139 mmol/L (136-145) Potassium Level 3.3 mmol/L (3.5-5.1) Chloride Level 105 mmol/L (98-107) Carbon Dioxide Level 27 mmol/L (21-32) Anion Gap 7 (6-14) Blood Urea Nitrogen 7 mg/dL (7-20) Creatinine 0.6 mg/dL (0.6-1.0) Estimated GFR (Cockcroft-Gault) 103.0 BUN/Creatinine Ratio 12 (6-20) Glucose Level 131 mg/dL (70-99) Calcium Level 7.7 mg/dL (8.5-10.1) Total Bilirubin 1.2 mg/dL (0.2-1.0) Aspartate Amino Transf (AST/SGOT) 454 U/L (15-37) Alanine Aminotransferase (ALT/SGPT) 146 U/L (14-59) Alkaline Phosphatase 77 U/L (46-116) Total Protein 6.4 g/dL (6.4-8.2) Albumin 2.6 g/dL (3.4-5.0) Albumin/Globulin Ratio 0.7 (1.0-1.7) ELPIDIO HOPKINS MD Aug 07, 2018 07:13
[2018-08-07] MEDS ORDERED: POTASSIUM CHLORIDE 20 MEQ TABLET.ER. PO ONE (07:15)
[2018-08-07] MEDS: BUDESONIDE 0.5 MG/2 ML NEBU. NEB SCH ×2 (08:43→20:09)
[2018-08-07] MEDS: LACTOBACILLUS RHAMNOSUS GG 1 CAPSULE. PO SCH ×2 (09:00→19:26)
[2018-08-07] MEDS: NICOTINE 21MG PATCH. TD SCH (09:00)
[2018-08-07] MEDS: AMOXICILLIN/K CLAV 875/125MG TABLET. PO SCH ×2 (09:00→19:26)
[2018-08-07] MEDS: MULTIVIT INFUSN,ADULT 4,VIT K 10 ML, THIAMINE INJ 100 MG, FOLIC ACID INJ 1 MG in IV NOR... IV SCH (09:53)
--- NOTE | 2018-08-07 10:23 | NUR ---
0715 through 0900 medications manually administered. Administered medications in room with bar scanner and saved. WOW did not save previously administered medication. Addendum: 08/07/18 at 1039 by DARNELL PINEDA RN Patient A/Ox2, up in chair, restless, moderate tremors, CIWA (11). Chair alarm in place, VSS waiting for availability on med/surg.
--- NOTE | 2018-08-07 11:35 | NUR ---
SS following for discharge planning. Pt is from home with spouse and is currently on room air. PT/OT recommended acute rehabilitation. SS met with pt to discuss acute rehabilitation and discharge planning. Pt reported that acute rehabilitation would be up to her family and requested that SS contact her , Urbano, . SS attempted to contact pt's spouse and received no response. SS contacted pt's daughter and left a voicemail requesting return call in regards to discharge planning and acute rehabilitation recommendation. Pt's RN notified.
[2018-08-08 03:00] VITALS: BP 132/80
[2018-08-08 06:11] LABS: ALBUMIN 2.7 g/dL (3.4-5.0); ALBUMIN/GLOBULIN RATIO 0.7 (1.0-1.7); CREATININE 0.5 mg/dL (0.6-1.0); GFR 127.2; POTASSIUM 3.7 mmol/L (3.5-5.1); TOTAL BILIRUBIN 0.9 mg/dL (0.2-1.0); TOTAL PROTEIN 6.7 g/dL (6.4-8.2)
[2018-08-08] MEDS ORDERED: LORazepam 1 MG TABLET PO PRN (07:00)
--- NOTE | 2018-08-08 07:01 | PDOC ---
SUBJECTIVE Subjective Pt is more alert today. Her shaking is starting to improve. She has required a 1:1 since coming up to the floor because of impulsivity and being unsteady on her feet. Discussed the possibility of going to SNF and pt is interested. Discussed with pt that we will need to be able to stop the 1:1, which means that she will need to ask for help as opposed to just getting up. Pt is agreeable. OBJECTIVE Vital Signs Vital Signs Date Time Temp Pulse Resp B/P (MAP) Pulse Ox O2 Delivery O2 Flow Rate FiO2 08/08/18 03:00 98.6 89 20 132/80 (97) 95 Room Air 98.6 08/07/18 23:59 Room Air 08/07/18 23:00 87 20 97 Room Air 08/07/18 20:10 Room Air 08/07/18 19:44 Room Air 08/07/18 19:00 98.4 98 20 133/69 (90) 96 Room Air 98.4 08/07/18 12:00 98.9 95 18 140/70 (93) 100 Room Air 98.9 08/07/18 08:43 Room Air 08/07/18 08:00 93 21 126/77 (93) 96 Room Air 08/07/18 08:00 Room Air 08/07/18 07:00 98.3 97 18 139/67 (91) 96 Room Air 98.3 I & O Intake and Output 08/08/18 07:00 Intake Total 640 ml Output Total 0 ml Balance 640 ml Intake Oral 640 ml Output Urine Total 0 ml # Voids 4 # Bowel Movements 2 PHYSICAL EXAM Physical Exam GEN.: mild tremors. NAD, AOx3 HEENT: Head is normocephalic, multiple ecchymoses NECK: Supple. LUNGS: Clear to auscultation. HEART: RRR, S1, S2 present. Peripheral pulses intact ABDOMEN: Soft, nontender. Positive bowel sounds. EXTREMITIES: Without any cyanosis. NEUROLOGIC: CN2-12 appear to be fully intact PSYCHIATRIC: normal mood and affect SKIN: No ulcerations ASSESSMENT/PLAN Assessment/Plan Pt is a 57yo CF admitted for altered mental status thought to be 2/2 alcohol withdrawal 1)Altered Mental Status- thought to be 2/2 alcohol withdrawal. Improving. Pt received about 1/2 the amount of Lorazepam over the last 24 hours. Will change to po Lorazepam. Discussed with pt possibility of going to SNF; will try to get 1:1 stopped today 2)Cirrhosis 2/2 Hepatitis C- NH4 levels WNL 3)COPD- breathing treatments available 4)HLD- pt not on any medication at this time, has been working on diet 5)Elevated troponin- trend starting to decrease, no c/o chest pain 6)Chronic back pain- pt normally received injections from Dr. Tao. No pain medication for now 7)Hx Breast Cancer COMMENT Lab Laboratory Tests Test 08/08/18 04:18 Sodium Level 141 mmol/L (136-145) Potassium Level 3.7 mmol/L (3.5-5.1) Chloride Level 106 mmol/L (98-107) Carbon Dioxide Level 25 mmol/L (21-32) Anion Gap 10 (6-14) Blood Urea Nitrogen 5 mg/dL (7-20) Creatinine 0.5 mg/dL (0.6-1.0) Estimated GFR (Cockcroft-Gault) 127.2 BUN/Creatinine Ratio 10 (6-20) Glucose Level 127 mg/dL (70-99) Calcium Level 8.0 mg/dL (8.5-10.1) Total Bilirubin 0.9 mg/dL (0.2-1.0) Aspartate Amino Transf (AST/SGOT) 378 U/L (15-37) Alanine Aminotransferase (ALT/SGPT) 161 U/L (14-59) Alkaline Phosphatase 77 U/L (46-116) Total Protein 6.7 g/dL (6.4-8.2) Albumin 2.7 g/dL (3.4-5.0) Albumin/Globulin Ratio 0.7 (1.0-1.7) ELPIDIO HOPKINS MD Aug 08, 2018 07:01
[2018-08-08 07:15] VITALS: BP 126/81
[2018-08-08] MEDS: BUDESONIDE 0.5 MG/2 ML NEBU. NEB SCH ×2 (07:49→19:17)
--- NOTE | 2018-08-08 08:03 | NUR ---
SS following up with discharge planning. SS contacted PAT team for evaluation and assessment. Lawrence from the PAT team coming to meet with pt.
[2018-08-08] MEDS: LACTOBACILLUS RHAMNOSUS GG 1 CAPSULE. PO SCH ×2 (09:03→18:52)
[2018-08-08] MEDS: AMOXICILLIN/K CLAV 875/125MG TABLET. PO SCH ×2 (09:03→18:52)
[2018-08-08] MEDS: NICOTINE 21MG PATCH. TD SCH (09:04)
[2018-08-08] MEDS: traMADol 50 MG TABLET PO PRN ×2 (09:04→19:43)
[2018-08-08] MEDS: LORazepam 1 MG TABLET PO PRN ×3 (09:04→21:53)
[2018-08-08] MEDS: MULTIVIT INFUSN,ADULT 4,VIT K 10 ML, THIAMINE INJ 100 MG, FOLIC ACID INJ 1 MG in IV NOR... IV SCH (09:05)
[2018-08-08 11:10] VITALS: BP 130/74
--- NOTE | 2018-08-08 14:34 | NUR ---
SW following pt. Pt seen by Lawrence and will f/u with [facility] for IOP services. [place] is also provided [place] [facility] Spoke with pt at bed side about rehab. Pt is walking 350ft with no device, contact guard assist with some loss of balance. Discussed that some of loss of balance could be from withdrawal symptoms and insurance is not going to approve acute rehab. Pt verbalized understanding. Pt will also f/u with her PCP, Dr. Camacho regarding medication management.
[2018-08-08 15:00] VITALS: BP 124/69
[2018-08-08 19:03] VITALS: BP 113/75
--- NOTE | 2018-08-08 21:45 | NUR ---
Patient has an increase in anxiety, is continuously rolling from side to side in bed and is unable to sleep. Ativan given previously did not seem to help patient relax. Patient at an 8 on CIWA. Orders on EMAR to give 4mg, already gave 2 mg prior. Administered additional 2mg. Will continue to monitor patient.
[2018-08-08 23:00] VITALS: BP 121/70
[2018-08-09 03:00] VITALS: BP 116/61
[2018-08-09 07:00] VITALS: BP 117/69
[2018-08-09] MEDS: BUDESONIDE 0.5 MG/2 ML NEBU. NEB SCH (07:29)
[2018-08-09] MEDS: traMADol 50 MG TABLET PO PRN (07:50)
[2018-08-09] MEDS: LACTOBACILLUS RHAMNOSUS GG 1 CAPSULE. PO SCH (07:50)
[2018-08-09] MEDS: AMOXICILLIN/K CLAV 875/125MG TABLET. PO SCH (07:50)
[2018-08-09] MEDS: NICOTINE 21MG PATCH. TD SCH (07:50)
[2018-08-09] MEDS: LORazepam 1 MG TABLET PO PRN (07:56)
[2018-08-09] MEDS ORDERED: FOLIC ACID 1 MG TABLET. PO SCH (09:00)
[2018-08-09] MEDS ORDERED: THIAMINE 100 MG TABLET. PO SCH (09:00)
[2018-08-09] MEDS ORDERED: MULTIVITAMIN with MINERAL TABLET. PO SCH (09:00)
[2018-08-09 11:00] VITALS: BP 122/75
[2018-08-09] MEDS ORDERED: AMOX1TAB11 PO (12:32)
--- NOTE | 2018-08-09 12:40 | PDOC3 ---
Discharge Summary [facility] Date of Admission: Aug 05, 2018 Discharge Date: Aug 09, 2018 Admitting Diagnosis alcoholic encephalopathy, withdrawal, sinusitis, anemia of chronic disease, moderate protein malnutrition Final Diagnosis alcoholic encephalopathy, withdrawal, sinusitis, anemia of chronic disease, moderate protein malnutrition CONSULTS none Procedures none Brief Hospital Course Ms. Iqbal is a 57 old who presented with encephalopathy from alcohol intoxication and went through withdrawal but improved with medication. She is now alert and eating and willing to go to [facility] for treatment and has information from regarding it. She required 1:1 observation while here initially but is now cooperative. She was also noted to have a left maxillary sinusitis treated with augmentin which will continue, she was found to be anemic and protein malnourished and on vitamins with iron Disposition to [facility] for alcoholism treatment CONDITION AT DISCHARGE: Improved, Stable Diet regular, no alcohol Scheduled Fluticasone/Vilanterol (Breo Ellipta 100-25 Mcg Inh), 1 PUFF IH DAILY, (Reported ) Hydrocodone Bitartrate (Hysingla ER), 20 MG PO DAILY, (Reported) Multivitamin (Multivitamins), 1 TAB PO DAILY, (Reported) Prednisone (Prednisone), 1 TAB PO DAILY Scheduled PRN Oxycodone/Apap 10-325 (Percocet 10-325 Mg Tablet ), 1 TAB PO Q6HRS PRN for PAIN Follow Up Dr. Lemus 1-2 weeks Hudson SALAZAR MD Aug 09, 2018 12:40
--- NOTE | 2018-08-09 13:03 | NUR ---
Pt discharged to home with spouse. Script given for PO antibiotics to treat sinus infection. Reviewed activity, diet, medications and follow up. Instructed pt to follow up with [facility] for outpt addiction therapy.
== END 2018-08-09 13:00 | disposition home or self-care (01) | DRG 57 ==
LOC: ER 10:59 → 1 WEST ICU 13:35 → 6 SOUTH 08-07 14:09
PROVIDERS: ADMIT Family Medicine; ATTEND Family Medicine
DX: G31.2 Degeneration of nervous system due to alcohol (principal); F10.231 Alcohol dependence with withdrawal delirium; E44.0 Moderate protein-calorie malnutrition; Z68.1 Body mass index [BMI] 19.9 or less, adult; J32.0 Chronic maxillary sinusitis; E78.5 Hyperlipidemia, unspecified; D63.8 Anemia in other chronic diseases classified elsewhere; G89.29 Other chronic pain; H53.2 Diplopia; F41.9 Anxiety disorder, unspecified; G62.9 Polyneuropathy, unspecified; J44.9 Chronic obstructive pulmonary disease, unspecified; K74.60 Unspecified cirrhosis of liver; B19.20 Unspecified viral hepatitis C without hepatic coma; Z82.49 Family history of ischemic heart disease and other diseases of the circulatory system; Z85.3 Personal history of malignant neoplasm of breast; Z82.5 Family history of asthma and other chronic lower respiratory diseases; Z90.13 Acquired absence of bilateral breasts and nipples; Z90.710 Acquired absence of both cervix and uterus
CPT/HCPCS: 36415; 70450; 70486; 72125; 80048; 80053; 80307; 81001; 82140; 83690; 83735; 84484; 85025; 85610; 85730; 87641; 93005; 94640; 94760; 96365; 96366; 96375; 96376; G0480; J2060; J7030; J7613; J7626; 97530; 97535; 99285-25

== ENCOUNTER 2019-01-27 07:31 | Inpatient (IN) | payer BC ==
[~2019-01-27] VITALS: Ht 160 cm; Wt 43.5 kg
[2019-01-27] VITALS (8 sets, daily range): BP systolic 90–129; BP diastolic 53–70
[~2019-01-27 07:31] MED LIST changes: +ALBU2.5V8 INH; +AMOX1TAB11 PO; +FLUT1BLS3 PO; +HYDR-2761 PO; +HYDROmorphone 2 MG/ML VIAL IV PRN; +IV RINGERS,LACTATED 1000ML 1,000 ML IV SCH; +LACT20SO PO; +LORA1TAB PO; +MORPHINE SULFATE 2 MG/ML VIAL. IV PRN; +ONDA4TAB7 PO; +ONDANSETRON PF 4 MG/2 ML VIAL. IV PRN; +PANT40TA77 PO; +PROCHLORPERAZINE 10 MG/2 ML VIAL. IV PRN; +cefOXitin SODIUM IV Push 2 GM VIAL. IVP PRN; +fentaNYL PF VIAL 100 MCG/2 ML VIAL IV PRN
[2019-01-27] MEDS ORDERED: SEVOFLURANE > 120 MINUTES. IH ONE (09:11)
[2019-01-27] MEDS ORDERED: ROCURONIUM 50 MG/5 ML VIAL. ONE ×2 (09:11→12:09)
[2019-01-27] MEDS ORDERED: fentaNYL PF VIAL 100 MCG/2 ML VIAL ONE (09:11)
[2019-01-27] MEDS ORDERED: GLYCOPYRROLATE 1 MG/5 ML VIAL. ONE (09:11)
[2019-01-27] MEDS ORDERED: MIDAZOLAM HCL/PF 2 MG/2 ML VIAL. ONE (09:11)
[2019-01-27] MEDS ORDERED: NEOSTIGMINE METHYLSULFATE 5 MG/5 ML SYRINGE. ONE (09:11)
[2019-01-27] MEDS ORDERED: DEXAMETHASONE SOD PHOS 4 MG/ML VIAL ONE (09:11)
[2019-01-27] MEDS ORDERED: PHENYLEPHRINE 10 MG/ML VIAL. ONE ×2 (09:11→14:49)
[2019-01-27] MEDS ORDERED: ONDANSETRON PF 4 MG/2 ML VIAL. ONE (09:12)
[2019-01-27] MEDS ORDERED: LIDOCAINE 2% PF 5 ML VIAL. ONE ×2 (09:12→10:15)
[2019-01-27] MEDS ORDERED: PROPOFOL 20 ML IV ONE (09:12)
[2019-01-27] MEDS: IV NORMAL SALINE 1000ML BAG 1,000 ML IV SCH (09:28)
[2019-01-27] MEDS ORDERED: NALOXONE 0.4 MG/ML VIAL. IV PRN ×2 (09:30→15:45)
[2019-01-27] MEDS ORDERED: ONDANSETRON PF 4 MG/2 ML VIAL. IV PRN (09:30)
[2019-01-27] MEDS ORDERED: IBUPROFEN 400 MG TABLET. PO PRN (09:30)
[2019-01-27] MEDS ORDERED: 0.9 % SODIUM CHLORIDE 10 ML DISP.SYRIN. IV PRN ×2 (09:30→15:45)
--- NOTE | 2019-01-27 09:40 | PDOC1 ---
History and Physical Date of Admission Date of Admission DATE: 01/27/19 TIME: 09:32 Identification/Chief Complaint Chief Complaint abd pain, RUQ Source Source: Chart review, Patient History of Present Illness History of Present Illness 58 yo F recently admitted to hospital with abd pain. Imaging c/w pancreatic head mass, c/w pancreatic cancer. Pt reviewed with other physicians and felt best served by proceeding with whipple. Pt discharged home and is a planned readmit for surgery today. Pt is seen, currently with c/o abd pain, controlled. Accompanied by supportive family. Past Medical History Cardiovascular: Hyperlipidemia Pulmonary: COPD CENTRAL NERVOUS SYSTEM: Periperal neuropathy GI: No pertinent hx Heme/Onc: Cancer Hepatobiliary: Cirrhosis, Hep A/B/C Psych: Anxiety Rheumatologic: No pertinent hx Infectious disease: No pertinent hx Renal/: No pertinent hx Endocrine: No pertinent hx Past Surgical History Past Surgical History: Mastectomy, Hysterectomy Family History Family History: Cancer, Chronic Bronchitis, Coronary Artery Disease, Heart Disease, Hypertension Social History Smoke: 1 pack per day ALCOHOL: heavy Drugs: None Current Medications Current Medications Current Medications Ondansetron HCl (Zofran) 4 mg PRN Q6HRS PRN IV NAUSEA/VOMITING; Start 01/27/19 at 07:00; Stop 01/28/19 at 06:59 Fentanyl Citrate (Fentanyl 2ml Vial) 25 mcg PRN Q5MIN PRN IV MILD PAIN 1-3; Start 01/27/19 at 07:00; Stop 01/28/19 at 06:59 Fentanyl Citrate (Fentanyl 2ml Vial) 50 mcg PRN Q5MIN PRN IV MODERATE TO SEVERE PAIN; Start 01/27/19 at 07:00; Stop 01/28/19 at 06:59 Morphine Sulfate (Morphine Sulfate) 1 mg PRN Q10MIN PRN IV SEVERE PAIN 7-10; Start 01/27/19 at 07:00; Stop 01/28/19 at 06:59 Ringer's Solution 1,000 ml @ 30 mls/hr Q24H IV Last administered on 01/27/19at 08:15; Start 01/27/19 at 07:00; Stop 01/27/19 at 18:59 Hydromorphone HCl (Dilaudid) 0.5 mg PRN Q10MIN PRN IV SEV PAIN, Second choice; Start 01/27/19 at 07:00; Stop 01/28/19 at 06:59 Prochlorperazine Edisylate (Compazine) 5 mg PACU PRN PRN IV NAUSEA, MRX1; Start 01/27/19 at 07:00; Stop 01/28/19 at 06:59 Cefoxitin Sodium (Mefoxin) 2 gm 1X PREOP PRN IVP SURGERY; Start 01/27/19 at 06:00 Sevoflurane (Ultane) 90 ml STK-MED ONCE IH ; Start 01/27/19 at 09:11; Stop 01/27/19 at 09:11; Status DC Rocuronium [place] (Zemuron) 50 mg STK-MED ONCE .ROUTE ; Start 01/27/19 at 09:11; Stop 01/27/19 at 09:11; Status DC Fentanyl Citrate (Fentanyl 2ml Vial) 100 mcg STK-MED ONCE .ROUTE ; Start 01/27/19 at 09:11; Stop 01/27/19 at 09:11; Status DC Neostigmine Methylsulfate (Neostigmine Methylsulfate) 5 mg STK-MED ONCE .ROUTE ; Start 01/27/19 at 09:11; Stop 01/27/19 at 09:11; Status DC Midazolam HCl (Versed) 2 mg STK-MED ONCE .ROUTE ; Start 01/27/19 at 09:11; Stop 01/27/19 at 09:11; Status DC Glycopyrrolate (Robinul) 1 mg STK-MED ONCE .ROUTE ; Start 01/27/19 at 09:11; Stop 01/27/19 at 09:11; Status DC Phenylephrine HCl (Bret-Synephrine Inj) 10 mg STK-MED ONCE .ROUTE ; Start 01/27/19 at 09:11; Stop 01/27/19 at 09:12; Status DC Dexamethasone Sodium Phosphate (Decadron) 4 mg STK-MED ONCE .ROUTE ; Start 01/27/19 at 09:11; Stop 01/27/19 at 09:12; Status DC Ondansetron HCl (Zofran) 4 mg STK-MED ONCE .ROUTE ; Start 01/27/19 at 09:12; Stop 01/27/19 at 09:12; Status DC Lidocaine HCl (Lidocaine Pf 2% Vial) 5 ml STK-MED ONCE .ROUTE ; Start 01/27/19 at 09:12; Stop 01/27/19 at 09:12; Status DC Propofol 20 ml @ As Directed STK-MED ONCE IV ; Start 01/27/19 at 09:12; Stop 01/27/19 at 09:12; Status DC Sodium Chloride (Normal Saline Flush) 3 ml QSHIFT PRN IV AFTER MEDS AND BLOOD DRAWS; Start 01/27/19 at 09:30; Status UNV Ibuprofen (Motrin) 400 mg PRN Q6HRS PRN PO MILD PAIN 1-3; Start 01/27/19 at 09:30; Status UNV Naloxone HCl (Narcan) 0.4 mg PRN Q2MIN PRN IV SEE INSTRUCTIONS; Start 01/27/19 at 09:30; Status UNV Sodium Chloride 1,000 ml @ 25 mls/hr Q24H IV ; Start 01/27/19 at 09:28; Status UNV Ondansetron HCl (Zofran) 4 mg PRN Q6HRS PRN IV Nausea, 2nd Choice; Start 01/27/19 at 09:30; Status UNV Active Scripts Active Lactulose 20 Gm/30 Ml Solution 20 Gm PO PRN TID PRN 30 Days Zofran (Ondansetron Hcl) 4 Mg Tablet 1 Tab PO Q6HRS 30 Days Hydrocodone-Apap 5-325 (Hydrocodone Bit/Acetaminophen) 1 Tab Tablet 1 Tab PO PRN Q6HRS PRN 6 Days Pantoprazole Sodium (Pantoprazole Sodium) 40 Mg Tablet.dr 40 Mg PO DAILYAC 30 Days Lorazepam 1 Mg Tablet 1 Mg PO PRN Q6HRS PRN 6 Days Reported Proair Hfa Inhaler (Albuterol Sulfate) 8.5 Gm Hfa.aer.ad 1 Puff INH PRN Q6HRS PRN Trelegy Ellipta 100-62.5-25 (Fluticasone/Umeclidin/Vilanter) 1 Each Blst.w.dev 1 Puff PO DAILY Allergies Allergies: Coded Allergies: No Known Drug Allergies (Unverified , 01/27/19) ROS Gastrointestinal: Yes Abdominal Pain Physical Exam General: Alert, Oriented X3, Cooperative, No acute distress, Other (thin) HEENT: Other (anicteric sclera) Lungs: Normal air movement Abdomen: Soft, No tenderness Rectal Exam: not examined PELVIC: Examination not indicated Extremities: No clubbing, No cyanosis Skin: No rashes, No breakdown Neuro: Normal speech, Sensation intact Psych/Mental Status: Mental status NL, Mood NL Vitals Vitals Vital Signs Date Time Temp Pulse Resp B/P (MAP) Pulse Ox O2 Delivery O2 Flow Rate FiO2 01/27/19 08:04 98.3 78 18 119/77 99 Room Air 98.3 Labs Labs Ca 19-9 not elevated, but CEA is at 6. Images Images C/w pancreatic head mass with CBD compression VTE Prophylaxis Ordered VTE Prophylaxis Devices: Yes VTE Pharmacological Prophylaxi: Contraindicated Assessment/Plan Assessment/Plan Pancreatic head mass, concern for periampullary cancer Given appearance of being resectable and concern for impending obstruction, whipple procedure indicated. EUS will delay intervention without suspect significant change to treatment plan. ERCP with stent only 30% possible for dx and increased risk for infectious complications and not currently jaundiced. R/R/B/A d/w pt and pt's supportive family. Risks, including, but not limited to: bleeding, infection, damage to surrounding structures, risk of anesthesia, risk of anastomotic leak, risk of (5% by ACS risk calculator, 50% severe complication secondary to COPD, smoking, ETOH and liver disease, malnutrition), risk of anesthesia, risk of pancreatic fistula, risk of gastroparesis. They appear to understand, their questions are answered and they elect to proceed. HÉCTOR RANDALL MD Jan 27, 2019 09:40
[2019-01-27] MEDS ORDERED: EPINEPHrine SYRINGE 1 MG/10 ML SYRINGE ONE (10:15)
[2019-01-27] MEDS ORDERED: ROPIVacaine 0.5% PF 20 ML VIAL. ONE (10:17)
[2019-01-27] MEDS ORDERED: SURGICEL HEMOSTAT 4X8 EACH. ONE ×2 (11:24→11:38)
[2019-01-27] MEDS ORDERED: cefOXitin SODIUM IV Push 2 GM VIAL. IVP ONE (12:30)
[2019-01-27] MEDS ORDERED: NORMAL SALINE 35 ML, fentaNYL PF VIAL 250 MCG, ROPIVacaine 0.5% PF 10 ML in EPIDURAL 50 TV EPID SCH (15:00)
[2019-01-27] MEDS ORDERED: cefOXitin SODIUM IV Push 2 GM VIAL. IVP PRN (15:15)
[2019-01-27] MEDS ORDERED: IV NORMAL SALINE 1000ML BAG 1,000 ML IV SCH (15:33)
--- NOTE | 2019-01-27 15:55 | PDOC4 ---
OPERATIVE NOTE Date: Date: Jan 27, 2019 Pre-Op Diagnosis: Pancreatic mass Post-Op Diagnosis: same, pancreatic cancer, liver cirrhosis Procedure Performed: whipple procedure (specifically pyloric sparing, pancreaticogastrostomy, hepaticojejunostomy, G-tube placement), liver biopsy Surgeon: Oscar Randall Asst: Dr. Shun Navarro Anesthesia Type: GETA Blood Loss: 200 Specimans Obtained: whipple (frozen section c/w adenocarcinoma, margins appear clear), liver biopsy Findings: cirrhotic appearing liver, distended gallbladder, common bile duct and pancreatic duct distention, mass in head and uncinate process, no evidence of metastatic disease Complications: none Operative Note: After obtaining informed consent, patient was taken to OR, induced under GETA and prepped in the usual fashion. Midline incision made with cautery. Abdominal cavity was explored and no evidence of metastatic disease. No other pathology noted. Liver hard and nodular in nature, but no evidence of portal hypertension. Gallbladder distended. Gallbladder taken off fossa using cautery. Significant bleeding on fossa secondary to hepatic dysfunction, but controlled with cautery and surgicel. Cystic artery ligated with ligasure. Common bile duct distended and divided just proximal to insertion of cystic duct. Gastroduodenal artery ligated with 0 vicryl stick and clips. Duodenum fully kocherized. Mass palpable in head and uncinate process. Duodenum divided with YENY distal to pylorus. Jejunum divided with YENY distal to ligament of treitz. Pancreas divided at neck with cautery. Pancreas tissue fairly hard, c/w history of Etoh use. Pancreatic duct 3 mm in diameter. Pancreas taken off portal vein using cautery and ligasure. Uncinate process divided with ligasure as posteriorly as possible, including mass. Specimen sent to pathology for evaluation. Copious irrigation. No evidence of bleeding or other pathology. Viscera appears viable. Pancreaticogastrostomy created with 3 0 vicryl used to invaginate body into posterior stomach. Tisseal placed around anastomosis. Pancreatic duct stented with pediatric feeding tube and brought out via G-tube which was placed anteriorly and secured with 3 0 vicryl pursestring and tacked to abdominal wall using 3 0 vicryl. Secured externally with 2 0 nylon. Hepaticojejunostomy created with 4 0 PDS in an end to side fashion. Anastomosis under no tension and completely viable. 3 0 vicryl used to support this bilaterally. Duodenal jejunostomy created in an end to end fashion with 3 0 vicryl outside and 3 0 PDS inside. This was created by bringing proximal jejunum around ligament of treitz and creating neoduodenum. Anastomosis appears viable, under no tension and without evidence of leakage. Copious irrigation. No evidence of bleeding or other pathology. 19 SEA drains placed bilaterally and secured with 3 0 nylon. Fascia repaired with 0 looped PDS. Skin repaired with 3 0 vicryl and 4 0 monocryl. Brooke placed in wound and secured with 3 0 nylon. Dressing placed. Patient tolerated procedure well and sent to PACU in stable condition. All counts correct. Wound class is 3. HÉCTOR RANDALL MD Jan 27, 2019 15:55
[2019-01-27] MEDS: NORMAL SALINE 35 ML, fentaNYL PF VIAL 250 MCG, ROPIVacaine 0.5% PF 10 ML in EPIDURAL 50 TV EPID PRN ×2 (16:24→21:47)
--- NOTE | 2019-01-27 16:27 | RAD ---
Examination: KUB History: Status post Whipple procedure. Comparison/Correlation: 01/21/2019 CT abdomen and pelvis without with contrast Findings: Postoperative frontal view of the abdomen was obtained. Tubing is identified terminating at the left upper abdomen. Moderate quantity of stool in the colon is noted. Degenerative changes of the low lumbar spine noted. Impression: No obstruction. Electronically signed by: Chas Johns MD (01/27/2019 4:24 PM) [facility]
[2019-01-27] MEDS: IV RINGERS,LACTATED 1000ML 1,000 ML IV SCH (17:20)
[2019-01-27] MEDS: FAMOTIDINE 20 MG/2 ML VIAL IVP SCH (21:06)
[2019-01-28] VITALS (23 sets, daily range): BP systolic 82–137; BP diastolic 47–81
[2019-01-28] MEDS: NORMAL SALINE 35 ML, fentaNYL PF VIAL 250 MCG, ROPIVacaine 0.5% PF 10 ML in EPIDURAL 50 TV EPID PRN ×7 (00:58→21:49)
[2019-01-28] MEDS: IV RINGERS,LACTATED 1000ML 1,000 ML IV SCH ×4 (03:32→21:06)
[2019-01-28 05:07] LABS: BASO % 1 % (0-3); EOS % 0 % (0-3); HEMATOCRIT 27.9 % (36.0-47.0); HEMOGLOBIN 9.5 g/dL (12.0-15.5); LYMPH # 1.5 x10^3/uL (1.0-4.8); LYMPH % 25 % (24-48); MEAN CORPUSCULAR HEMOGLOBIN 34 pg (25-35); MEAN CORPUSCULAR HGB CONC 34 g/dL (31-37); MEAN CORPUSCULAR VOLUME 100 fL (79-100); MONO # 0.7 x10^3/uL (0.0-1.1); MONO % 11 % (0-9); NEUT % 64 % (31-73); PLATELET COUNT 92 x10^3/uL (140-400); RED CELL DISTRIBUTION WIDTH 13.5 % (11.5-14.5); WHITE BLOOD COUNT 6.2 x10^3/uL (4.0-11.0)
[2019-01-28 05:16] LABS: CALCIUM 7.6 mg/dL (8.5-10.1); CREATININE 0.7 mg/dL (0.6-1.0); GFR 85.9; POTASSIUM 4.7 mmol/L (3.5-5.1)
[2019-01-28] MEDS: ENOXAPARIN 40 MG/0.4 ML SYRINGE. SQ SCH (08:05)
[2019-01-28] MEDS: FAMOTIDINE 20 MG/2 ML VIAL IVP SCH ×2 (08:05→21:06)
[2019-01-28] MEDS: IV NORMAL SALINE 1000ML BAG 1,000 ML IV SCH (09:28)
[2019-01-28] MEDS: BENZOCAINE/MENTHOL LOZENGE. PO PRN (10:49)
--- NOTE | 2019-01-28 12:42 | PDOC1 ---
History and Physical Date of Admission Date of Admission DATE: 01/28/19 TIME: 12:37 Identification/Chief Complaint Chief Complaint post op medical mgt// COPD ETOH HX // POST OP ANXIETY History of Present Illness History of Present Illness Procedure Performed: whipple procedure (specifically pyloric sparing, pancreaticogastrostomy, hepaticojejunostomy, G-tube placement), liver biopsy Surgeon: Oscar Levin Asst: Dr. Shun Navarro Anesthesia Type: GETA Blood Loss: 200 Specimans Obtained: whipple (frozen section c/w adenocarcinoma, margins appear clear), liver biopsy Past Medical History Past Medical History Pancreatic mass H/o hep c Hepatitis Alcoholism Bilateral Mastectomy Hypokalemia Acute pancreatitis 02/05 Cardiovascular: Hyperlipidemia Pulmonary: COPD CENTRAL NERVOUS SYSTEM: Periperal neuropathy GI: No pertinent hx Heme/Onc: Cancer Hepatobiliary: Cirrhosis, Hep A/B/C Psych: Anxiety Rheumatologic: No pertinent hx Infectious disease: No pertinent hx Renal/: No pertinent hx Endocrine: No pertinent hx Past Surgical History Past Surgical History: Mastectomy, Hysterectomy Family History Family History: Cancer, Chronic Bronchitis, Coronary Artery Disease, Heart Disease, Hypertension Social History Smoke: 1 pack per day ALCOHOL: heavy Drugs: None Current Medications Current Medications Current Medications Ondansetron HCl (Zofran) 4 mg PRN Q6HRS PRN IV NAUSEA/VOMITING; Start 01/27/19 at 07:00; Stop 01/28/19 at 06:59; Status DC Fentanyl Citrate (Fentanyl 2ml Vial) 25 mcg PRN Q5MIN PRN IV MILD PAIN 1-3; Start 01/27/19 at 07:00; Stop 01/28/19 at 06:59; Status DC Fentanyl Citrate (Fentanyl 2ml Vial) 50 mcg PRN Q5MIN PRN IV MODERATE TO SEVERE PAIN; Start 01/27/19 at 07:00; Stop 01/28/19 at 06:59; Status DC Morphine Sulfate (Morphine Sulfate) 1 mg PRN Q10MIN PRN IV SEVERE PAIN 7-10; Start 01/27/19 at 07:00; Stop 01/28/19 at 06:59; Status DC Ringer's Solution 1,000 ml @ 30 mls/hr Q24H IV Last administered on 01/27/19at 08:15; Start 01/27/19 at 07:00; Stop 01/27/19 at 18:59; Status DC Hydromorphone HCl (Dilaudid) 0.5 mg PRN Q10MIN PRN IV SEV PAIN, Second choice; Start 01/27/19 at 07:00; Stop 01/28/19 at 06:59; Status DC Prochlorperazine Edisylate (Compazine) 5 mg PACU PRN PRN IV NAUSEA, MRX1 Last a dministered on 01/28/19at 03:33; Start 01/27/19 at 07:00; Stop 01/28/19 at 06:59; Status DC Cefoxitin Sodium (Mefoxin) 2 gm 1X PREOP PRN IVP SURGERY Last administered on 01/27/19at 12:18; Start 01/27/19 at 06:00; Stop 01/28/19 at 10:13; Status DC Sevoflurane (Ultane) 90 ml STK-MED ONCE IH ; Start 01/27/19 at 09:11; Stop 01/27/19 at 09:11; Status DC Rocuronium [place] (Zemuron) 50 mg STK-MED ONCE .ROUTE ; Start 01/27/19 at 09:11; Stop 01/27/19 at 09:11; Status DC Fentanyl Citrate (Fentanyl 2ml Vial) 100 mcg STK-MED ONCE .ROUTE ; Start 01/27/19 at 09:11; Stop 01/27/19 at 09:11; Status DC Neostigmine Methylsulfate (Neostigmine Methylsulfate) 5 mg STK-MED ONCE .ROUTE ; Start 01/27/19 at 09:11; Stop 01/27/19 at 09:11; Status DC Midazolam HCl (Versed) 2 mg STK-MED ONCE .ROUTE ; Start 01/27/19 at 09:11; Stop 01/27/19 at 09:11; Status DC Glycopyrrolate (Robinul) 1 mg STK-MED ONCE .ROUTE ; Start 01/27/19 at 09:11; Stop 01/27/19 at 09:11; Status DC Phenylephrine HCl (Bret-Synephrine Inj) 10 mg STK-MED ONCE .ROUTE ; Start 01/27/19 at 09:11; Stop 01/27/19 at 09:12; Status DC Dexamethasone Sodium Phosphate (Decadron) 4 mg STK-MED ONCE .ROUTE ; Start 01/27/19 at 09:11; Stop 01/27/19 at 09:12; Status DC Ondansetron HCl (Zofran) 4 mg STK-MED ONCE .ROUTE ; Start 01/27/19 at 09:12; Stop 01/27/19 at 09:12; Status DC Lidocaine HCl (Lidocaine Pf 2% Vial) 5 ml STK-MED ONCE .ROUTE ; Start 01/27/19 a t 09:12; Stop 01/27/19 at 09:12; Status DC Propofol 20 ml @ As Directed STK-MED ONCE IV ; Start 01/27/19 at 09:12; Stop 01/27/19 at 09:12; Status DC Sodium Chloride (Normal Saline Flush) 3 ml QSHIFT PRN IV AFTER MEDS AND BLOOD DRAWS; Start 01/27/19 at 09:30 Ibuprofen (Motrin) 400 mg PRN Q6HRS PRN PO MILD PAIN 1-3; Start 01/27/19 at 09:30 Naloxone HCl (Narcan) 0.4 mg PRN Q2MIN PRN IV SEE INSTRUCTIONS; Start 01/27/19 at 09:30 Sodium Chloride 1,000 ml @ 25 mls/hr Q24H IV ; Start 01/27/19 at 09:28 Ondansetron HCl (Zofran) 4 mg PRN Q6HRS PRN IV Nausea, 2nd Choice; Start 01/27/19 at 09:30 Epinephrine HCl (EPINEPHrine SYRINGE) 1 mg STK-MED ONCE .ROUTE ; Start 01/27/19 at 10:15; Stop 01/27/19 at 10:16; Status DC Lidocaine HCl (Lidocaine Pf 2% Vial) 5 ml STK-MED ONCE .ROUTE ; Start 01/27/19 at 10:15; Stop 01/27/19 at 10:16; Status DC Ropivacaine (Naropin 0.5%) 20 ml STK-MED ONCE .ROUTE ; Start 01/27/19 at 10:17; Stop 01/27/19 at 10:18; Status DC Cellulose (Surgicel Hemostat 4x8) 1 each STK-MED ONCE .ROUTE Last administered on 01/27/19at 11:25; Start 01/27/19 at 11:24; Stop 01/27/19 at 11:25; Status DC Cellulose (Surgicel Hemostat 4x8) 1 each STK-MED ONCE .ROUTE Last administered on 01/27/19at 11:39; Start 01/27/19 at 11:38; Stop 01/27/19 at 11:38; Status DC Rocuronium [place] (Zemuron) 50 mg STK-MED ONCE .ROUTE ; Start 01/27/19 at 12:09; Stop 01/27/19 at 12:09; Status DC Cefoxitin Sodium (Mefoxin) 2 gm 1X ONCE IVP Last administered on 01/27/19at 12:33; Start 01/27/19 at 12:30; Stop 01/27/19 at 12:31; Status DC Phenylephrine HCl (Bret-Synephrine Inj) 10 mg STK-MED ONCE .ROUTE ; Start 01/27/19 at 14:49; Stop 01/27/19 at 14:49; Status DC Sodium Chloride 35 ml/Fentanyl Citrate 250 mcg/ Ropivacaine 10 ml/ Epidural Dosage Infused (Pha) 50 ml @ 0 mls/hr CONT EPID ; Start 01/27/19 at 15:00; Status UNV Sodium Chloride 35 ml/Fentanyl Citrate 250 mcg/ Ropivacaine 10 ml/ Epidural Dosage Infused (Pha) 50 ml @ 0 mls/hr CONT PRN EPID SEE PROTOCOL TABLE Last administered on 01/28/19at 05:00; Start 01/27/19 at 15:00; Stop 01/28/19 at 08:11; Status DC Cefoxitin Sodium (Mefoxin) 2 gm 1X PREOP PRN IVP SURGERY Last administered on 01/27/19at 16:47; Start 01/27/19 at 15:15; Stop 01/28/19 at 10:13; Status DC Famotidine (Pepcid Vial) 20 mg BID IVP Last administered on 01/28/19at 08:06; Start 01/27/19 at 21:00 Enoxaparin Sodium (Lovenox 40mg Syringe) 40 mg Q24H SQ Last administered on 01/28/19at 08:06; Start 01/28/19 at 09:00 Sodium Chloride (Normal Saline Flush) 3 ml QSHIFT PRN IV AFTER MEDS AND BLOOD DRAWS; Start 01/27/19 at 15:45 Ringer's Solution 1,000 ml @ 100 mls/hr Q10H IV Last administered on 01/28/19at 08:00; Start 01/27/19 at 15:33 Naloxone HCl (Narcan) 0.4 mg PRN Q2MIN PRN IV SEE INSTRUCTIONS; Start 01/27/19 at 15:45 Sodium Chloride 1,000 ml @ 25 mls/hr Q24H IV ; Start 01/27/19 at 15:33 Ondansetron HCl (Zofran) 4 mg PRN Q6HRS PRN IV NAUESA, 1ST CHOICE; Start 01/27/19 at 15:45 Sodium Chloride 35 ml/Fentanyl Citrate 250 mcg/ Ropivacaine 10 ml/ Epidural Dosage Infused (Pha) 50 ml @ 0 mls/hr CONT PRN EPID SEE PROTOCOL TABLE Last administered on 01/28/19at 09:51; Start 01/28/19 at 08:15 Throat Lozenges (Cepacol Sore Throat Lozenge) 1 karthikeyan PRN Q2HRS PRN PO SORE THROAT Last administered on 01/28/19at 10:49; Start 01/28/19 at 09:30 Lorazepam (Ativan Inj) 0.5 mg PRN Q6HRS PRN IV ANXIETY / AGITATION; Start 01/28/19 at 12:30 Active Scripts Active Lactulose 20 Gm/30 Ml Solution 20 Gm PO PRN TID PRN 30 Days Zofran (Ondansetron Hcl) 4 Mg Tablet 1 Tab PO Q6HRS 30 Days Hydrocodone-Apap 5-325 (Hydrocodone Bit/Acetaminophen) 1 Tab Tablet 1 Tab PO PRN Q6HRS PRN 6 Days Pantoprazole Sodium (Pantoprazole Sodium) 40 Mg Tablet.dr 40 Mg PO DAILYAC 30 Days Lorazepam 1 Mg Tablet 1 Mg PO PRN Q6HRS PRN 6 Days Reported Proair Hfa Inhaler (Albuterol Sulfate) 8.5 Gm Hfa.aer.ad 1 Puff INH PRN Q6HRS PRN Trelegy Ellipta 100-62.5-25 (Fluticasone/Umeclidin/Vilanter) 1 Each Blst.w.dev 1 Puff PO DAILY Allergies Allergies: Coded Allergies: No Known Drug Allergies (Unverified , 01/27/19) ROS Review of System Review of Systems Review of Systems Constitutional: Denies fever or chills [] c/o anxiety Eyes: Denies change in visual acuity, redness, or eye pain [] HENT: Denies nasal congestion or sore throat [] Respiratory: Denies cough or shortness of breath [] Cardiovascular: No additional information not addressed in HPI [] GI: Reports abdominal pain, [] : Denies dysuria or hematuria [] Musculoskeletal: Denies back pain or joint pain [] Integument: Denies rash or skin lesions [] Neurologic: Denies headache, focal weakness or sensory changes [] Endocrine: Denies polyuria or polydipsia [] 14 pt systems were reviewed and found to be within normal limits, except as documented ALLERGY AND IMMUNOLOGY: No: Hives, Insect Bite Sensitivity, Itchy/Watery Eyes, Nasal Congestion, Post Nasal Drip, Seasonal Allergies, Other Hematological and Lymphatic: No: Bleeding Problems, Blood Clots, Blood Transfusions, Brusing, Night Sweats, Pallor, Swollen Lymph Nodes, Other Cardiovascular: No Chest Pain, No Palpitations, No Orthopnea, No Paroxysmal Noc. Dyspnea, No Edema, No Lt Headedness, No Other Physical Exam Physical Exam Constitutional: Well developed, well nourished, mild acute distress, non-toxic appearance. [] HENT: Normocephalic, atraumatic, bilateral external ears normal, oropharynx moist, no oral exudates, nose normal. [] Eyes: PERRLA, EOMI, conjunctiva normal, no discharge. [] Neck: Normal range of motion, no tenderness, supple, no stridor. [] Cardiovascular:Heart rate regular rhythm, no murmur [] Lungs & Thorax: Bilateral breath sounds clear to auscultation [] Abdomen: dressings dry Skin: Warm, dry, no erythema, no rash. [] Back: No tenderness, no CVA tenderness. [] Extremities: No tenderness, no cyanosis, no clubbing, ROM intact, no edema. [] Neurologic: Alert and oriented X 3, normal motor function, normal sensory function, no focal deficits noted. [] Psychologic: Affect normal, judgement normal, mood normal. mild anxious appearance no tremors [] General: Oriented X3, Cooperative, mild distress HEENT: Atraumatic, PERRLA, EOMI Lungs: Normal air movement Heart: RRR, no thrills, no gallops Breasts: Not examined Rectal Exam: not examined PELVIC: Examination not indicated Extremities: No cyanosis Neuro: Normal speech, Cranial nerves 3-12 NL Psych/Mental Status: Mental status NL, Mood NL Vitals Vitals Vital Signs Date Time Temp Pulse Resp B/P (MAP) Pulse Ox O2 Delivery O2 Flow Rate FiO2 01/28/19 11:00 92 137/77 (97) 100 Nasal Cannula 2.0 01/28/19 09:51 16 01/28/19 07:00 99.3 99.3 Labs Labs Laboratory Tests Test 01/28/19 04:55 White Blood Count 6.2 x10^3/uL (4.0-11.0) Red Blood Count 2.80 x10^6/uL (3.50-5.40) Hemoglobin 9.5 g/dL (12.0-15.5) Hematocrit 27.9 % (36.0-47.0) Mean Corpuscular Volume 100 fL (79-100) Mean Corpuscular Hemoglobin 34 pg (25-35) Mean Corpuscular Hemoglobin Concent 34 g/dL (31-37) Red Cell Distribution Width 13.5 % (11.5-14.5) Platelet Count 92 x10^3/uL (140-400) Neutrophils (%) (Auto) 64 % (31-73) Lymphocytes (%) (Auto) 25 % (24-48) Monocytes (%) (Auto) 11 % (0-9) Eosinophils (%) (Auto) 0 % (0-3) Basophils (%) (Auto) 1 % (0-3) Neutrophils # (Auto) 4.0 x10^3/uL (1.8-7.7) Lymphocytes # (Auto) 1.5 x10^3/uL (1.0-4.8) Monocytes # (Auto) 0.7 x10^3/uL (0.0-1.1) Eosinophils # (Auto) 0.0 x10^3/uL (0.0-0.7) Basophils # (Auto) 0.0 x10^3/uL (0.0-0.2) Sodium Level 139 mmol/L (136-145) Potassium Level 4.7 mmol/L (3.5-5.1) Chloride Level 106 mmol/L (98-107) Carbon Dioxide Level 29 mmol/L (21-32) Anion Gap 4 (6-14) Blood Urea Nitrogen 14 mg/dL (7-20) Creatinine 0.7 mg/dL (0.6-1.0) Estimated GFR (Cockcroft-Gault) 85.9 Glucose Level 129 mg/dL (70-99) Calcium Level 7.6 mg/dL (8.5-10.1) Laboratory Tests Test 01/28/19 04:55 White Blood Count 6.2 x10^3/uL (4.0-11.0) Red Blood Count 2.80 x10^6/uL (3.50-5.40) Hemoglobin 9.5 g/dL (12.0-15.5) Hematocrit 27.9 % (36.0-47.0) Mean Corpuscular Volume 100 fL (79-100) Mean Corpuscular Hemoglobin 34 pg (25-35) Mean Corpuscular Hemoglobin Concent 34 g/dL (31-37) Red Cell Distribution Width 13.5 % (11.5-14.5) Platelet Count 92 x10^3/uL (140-400) Neutrophils (%) (Auto) 64 % (31-73) Lymphocytes (%) (Auto) 25 % (24-48) Monocytes (%) (Auto) 11 % (0-9) Eosinophils (%) (Auto) 0 % (0-3) Basophils (%) (Auto) 1 % (0-3) Neutrophils # (Auto) 4.0 x10^3/uL (1.8-7.7) Lymphocytes # (Auto) 1.5 x10^3/uL (1.0-4.8) Monocytes # (Auto) 0.7 x10^3/uL (0.0-1.1) Eosinophils # (Auto) 0.0 x10^3/uL (0.0-0.7) Basophils # (Auto) 0.0 x10^3/uL (0.0-0.2) Sodium Level 139 mmol/L (136-145) Potassium Level 4.7 mmol/L (3.5-5.1) Chloride Level 106 mmol/L (98-107) Carbon Dioxide Level 29 mmol/L (21-32) Anion Gap 4 (6-14) Blood Urea Nitrogen 14 mg/dL (7-20) Creatinine 0.7 mg/dL (0.6-1.0) Estimated GFR (Cockcroft-Gault) 85.9 Glucose Level 129 mg/dL (70-99) Calcium Level 7.6 mg/dL (8.5-10.1) Images Images Exam: MRI MRCP abdomen without contrast INDICATION: Gallstone pancreatitis, rule out choledocholithiasis TECHNIQUE: Multiplanar multisequence MRI of the abdomen was obtained without the administration of IV contrast. Three-D reformatted images of the MRCP sequences were also reviewed. Comparisons: CT same day FINDINGS: Within the pancreatic head there is abnormal area of signal which is ill-defined measuring approximately 1.8 x 2.0 cm which appears to at least abut the SMV. There is mild dilatation of the proximal pancreatic duct There is mild to moderate intrahepatic ductal dilatation. The left biliary duct measures 1 cm proximal to the confluence no enlarged abdominal lymph nodes are identified. Bone marrow signal is normal.. The right bile duct measures 8 mm proximal to the confluence. No intrahepatic areas of narrowing are identified. The common bile duct is dilated measuring 1.2 cm. There is abrupt cut off of the bile duct at the level of the pancreatic head. There is visualization of the duct just proximal to the ampulla which is a normal caliber. Liver has a nodular contour. There is heterogenous interstitial T2 signal noted within the liver. No focal area of T2 signal abnormality is identified. No abnormal area of restricted diffusion is seen. Small amount of perihepatic ascites is noted. Gallbladder is dilated. Small amount of pericholecystic fluid is noted. No gallbladder wall thickening is seen. Spleen is enlarged measuring 13.5 cm in long axis. Several subcentimeter T2 hyperintense cystic lesions noted within the kidneys largest at the lower pole measuring 1.0 cm likely represent simple cysts. Visualized portions of the bowel are unremarkable. No obstruction. IMPRESSION: 1. Findings suspicious for pancreatic head mass measuring approximately 2.0 cm which is causing cut off of the common bile duct and pancreatic duct with resultant upstream ductal dilatation. Correlation with ERCP for tissue sampling is recommended. 2. Gallbladder is distended, likely related to some degree of obstruction from the aforementioned mass. 3. Cirrhotic morphology of the liver with sequela of portal hypertension including splenomegaly, and trace intra-abdominal ascites. Electronically signed by: Bruno Grace MD (01/21/2019 4:16 PM) [facility] VTE Prophylaxis Ordered VTE Prophylaxis Devices: Yes VTE Pharmacological Prophylaxi: Contraindicated Assessment/Plan Assessment/Plan impression post op anxiety hx mod etoh abuse HX COPD tobacco abuse syndrome POST OP DAY # 1 whipple procedure for pancreatic head mass measuring approximately 2.0 cm which is causing cut off of the common bile duct and pancreatic duct with resultant upstream ductal dilatation. POD # 1 whipple procedure (specifically pyloric sparing, pancreaticogastrostomy, hepaticojejunostomy, G-tube placement), liver biopsy Gallbladder distended, likely related to some degree of obstruction from mass. Cirrhotic morphology of the liver with sequela of portal hypertension including splenomegaly, and trace intra-abdominal ascites. plan low dose iv ativan prn mild anxiety q 6 hrs prn alcohol withdrawal precautions duonebs qid NPO IV FLUID SUPPORT IV PEPSID BID SQ LOVENOX DVT PROPHYLAXIS AM LABS 36 min cc time CARLOS RUANO MD Jan 28, 2019 12:42
[2019-01-28] MEDS ORDERED: diphenhydrAMINE 50 MG/ML VIAL IVP PRN (13:00)
[2019-01-28] MEDS: IPRATRPIUM/ALBUTEROL 0.5/2.5MG 3 ML NEBU. NEB SCH ×3 (13:00→20:10)
--- NOTE | 2019-01-28 13:51 | PDOC ---
SURGICAL PROGRESS NOTE Subjective Pt with c/o incisional pain and some anxiety, but sat in chair for awhile. Vital Signs Vital Signs Date Time Temp Pulse Resp B/P (MAP) Pulse Ox O2 Delivery O2 Flow Rate FiO2 01/28/19 12:39 16 Nasal Cannula 2.0 01/28/19 11:00 92 137/77 (97) 100 01/28/19 07:00 99.3 99.3 I&O Intake and Output 01/28/19 07:00 Intake Total 1092 ml Output Total 2180 ml Balance -1088 ml Intake IV Total 1092 ml Output Urine Total 1270 ml Gastric Drainage Total 0 ml Drainage Total 710 ml Estimated Blood Loss 200 ml PATIENT HAS A LEVI: Yes General: Alert, Oriented X3, Cooperative, mild distress Abdomen: Soft, No tenderness, Other (SEA serosang) Labs Laboratory Tests Test 01/28/19 04:55 White Blood Count 6.2 x10^3/uL (4.0-11.0) Red Blood Count 2.80 x10^6/uL (3.50-5.40) Hemoglobin 9.5 g/dL (12.0-15.5) Hematocrit 27.9 % (36.0-47.0) Mean Corpuscular Volume 100 fL (79-100) Mean Corpuscular Hemoglobin 34 pg (25-35) Mean Corpuscular Hemoglobin Concent 34 g/dL (31-37) Red Cell Distribution Width 13.5 % (11.5-14.5) Platelet Count 92 x10^3/uL (140-400) Neutrophils (%) (Auto) 64 % (31-73) Lymphocytes (%) (Auto) 25 % (24-48) Monocytes (%) (Auto) 11 % (0-9) Eosinophils (%) (Auto) 0 % (0-3) Basophils (%) (Auto) 1 % (0-3) Neutrophils # (Auto) 4.0 x10^3/uL (1.8-7.7) Lymphocytes # (Auto) 1.5 x10^3/uL (1.0-4.8) Monocytes # (Auto) 0.7 x10^3/uL (0.0-1.1) Eosinophils # (Auto) 0.0 x10^3/uL (0.0-0.7) Basophils # (Auto) 0.0 x10^3/uL (0.0-0.2) Sodium Level 139 mmol/L (136-145) Potassium Level 4.7 mmol/L (3.5-5.1) Chloride Level 106 mmol/L (98-107) Carbon Dioxide Level 29 mmol/L (21-32) Anion Gap 4 (6-14) Blood Urea Nitrogen 14 mg/dL (7-20) Creatinine 0.7 mg/dL (0.6-1.0) Estimated GFR (Cockcroft-Gault) 85.9 Glucose Level 129 mg/dL (70-99) Calcium Level 7.6 mg/dL (8.5-10.1) Laboratory Tests Test 01/28/19 04:55 White Blood Count 6.2 x10^3/uL (4.0-11.0) Red Blood Count 2.80 x10^6/uL (3.50-5.40) Hemoglobin 9.5 g/dL (12.0-15.5) Hematocrit 27.9 % (36.0-47.0) Mean Corpuscular Volume 100 fL (79-100) Mean Corpuscular Hemoglobin 34 pg (25-35) Mean Corpuscular Hemoglobin Concent 34 g/dL (31-37) Red Cell Distribution Width 13.5 % (11.5-14.5) Platelet Count 92 x10^3/uL (140-400) Neutrophils (%) (Auto) 64 % (31-73) Lymphocytes (%) (Auto) 25 % (24-48) Monocytes (%) (Auto) 11 % (0-9) Eosinophils (%) (Auto) 0 % (0-3) Basophils (%) (Auto) 1 % (0-3) Neutrophils # (Auto) 4.0 x10^3/uL (1.8-7.7) Lymphocytes # (Auto) 1.5 x10^3/uL (1.0-4.8) Monocytes # (Auto) 0.7 x10^3/uL (0.0-1.1) Eosinophils # (Auto) 0.0 x10^3/uL (0.0-0.7) Basophils # (Auto) 0.0 x10^3/uL (0.0-0.2) Sodium Level 139 mmol/L (136-145) Potassium Level 4.7 mmol/L (3.5-5.1) Chloride Level 106 mmol/L (98-107) Carbon Dioxide Level 29 mmol/L (21-32) Anion Gap 4 (6-14) Blood Urea Nitrogen 14 mg/dL (7-20) Creatinine 0.7 mg/dL (0.6-1.0) Estimated GFR (Cockcroft-Gault) 85.9 Glucose Level 129 mg/dL (70-99) Calcium Level 7.6 mg/dL (8.5-10.1) Problem List s/p julieth PARDO pain control per anesthesia will restart home anxiety meds. await bowel fxn HÉCTOR RANDALL MD Jan 28, 2019 13:51
[2019-01-28] MEDS ORDERED: LORazepam 1 MG TABLET PO PRN (14:00)
[2019-01-28] MEDS ORDERED: ALBUTEROL SULFATE 2.5 MG/3 ML NEBU. INH PRN (14:00)
[2019-01-28] MEDS: THIAMINE IM 200 MG/2 ML VIAL. IM SCH (15:42)
[2019-01-28] MEDS: PANTOPRAZOLE 40 MG TABLET.DR. PO SCH (16:30)
[2019-01-28] MEDS: BUDESONIDE 0.5 MG/2 ML NEBU. NEB SCH (20:10)
[2019-01-29] VITALS (15 sets, daily range): BP systolic 105–155; BP diastolic 56–84
[2019-01-29] MEDS: NORMAL SALINE 35 ML, fentaNYL PF VIAL 250 MCG, ROPIVacaine 0.5% PF 10 ML in EPIDURAL 50 TV EPID PRN ×5 (01:06→21:41)
[2019-01-29 04:31] LABS: BASO % 1 % (0-3); EOS % 0 % (0-3); HEMATOCRIT 26.3 % (36.0-47.0); HEMOGLOBIN 9.3 g/dL (12.0-15.5); LYMPH # 1.8 x10^3/uL (1.0-4.8); LYMPH % 21 % (24-48); MEAN CORPUSCULAR HEMOGLOBIN 35 pg (25-35); MEAN CORPUSCULAR HGB CONC 35 g/dL (31-37); MEAN CORPUSCULAR VOLUME 99 fL (79-100); MONO # 0.8 x10^3/uL (0.0-1.1); MONO % 10 % (0-9); NEUT # 5.8 x10^3/uL (1.8-7.7); NEUT % 68 % (31-73); PLATELET COUNT 88 x10^3/uL (140-400); RED BLOOD COUNT 2.66 x10^6/uL (3.50-5.40); RED CELL DISTRIBUTION WIDTH 13.6 % (11.5-14.5); WHITE BLOOD COUNT 8.5 x10^3/uL (4.0-11.0)
[2019-01-29 04:48] LABS: ALBUMIN 2.1 g/dL (3.4-5.0); ALBUMIN/GLOBULIN RATIO 0.7 (1.0-1.7); CALCIUM 7.7 mg/dL (8.5-10.1); CREATININE 0.6 mg/dL (0.6-1.0); GFR 102.7; POTASSIUM 3.9 mmol/L (3.5-5.1); TOTAL BILIRUBIN 1.1 mg/dL (0.2-1.0); TOTAL PROTEIN 5.2 g/dL (6.4-8.2)
[2019-01-29] MEDS: PANTOPRAZOLE 40 MG TABLET.DR. PO SCH (07:30)
[2019-01-29] MEDS: IV RINGERS,LACTATED 1000ML 1,000 ML IV SCH ×2 (07:34→16:56)
[2019-01-29] MEDS: IPRATRPIUM/ALBUTEROL 0.5/2.5MG 3 ML NEBU. NEB SCH ×4 (08:01→20:06)
[2019-01-29] MEDS: BUDESONIDE 0.5 MG/2 ML NEBU. NEB SCH ×2 (08:01→20:07)
[2019-01-29] MEDS ORDERED: NON FORMULARY ITEM (Fluticasone/Umeclidin/Vilanter (Trelegy Ellipta 100-62.5-25) 1 PUFF) PO SCH (09:00)
[2019-01-29] MEDS: IV NORMAL SALINE 1000ML BAG 1,000 ML IV SCH (09:28)
--- NOTE | 2019-01-29 11:35 | PDOC ---
[employer] PROGRESS NOTE Chief Complaint Chief Complaint Pancreatic mass H/o hep c Hepatitis Alcoholism Bilateral Mastectomy Hypokalemia Acute pancreatitis 02/05 Hyperlipidemia COPD Periperal neuropathy Cirrhosis Anxiety History of Present Illness History of Present Illness 01/29/19 Pt seen and examined in ICU at bedside s/p Cira SEA drain at RLQ intact Pt sleeping upon entry and with daughter today- appears in NAD Daughter says pt is alcoholic; she also says pt did not sleep well last night DW RN Vitals/I&O Vitals/I&O: Vital Signs Date Time Temp Pulse Resp B/P (MAP) Pulse Ox O2 Delivery O2 Flow Rate FiO2 01/29/19 08:06 99 Nasal Cannula 2.0 01/29/19 06:00 111 118/68 (85) 01/29/19 04:41 14 01/29/19 04:00 98.8 98.8 I & O 01/28/19 01/28/19 01/29/19 14:59 22:59 06:59 Intake Total 1100 ml 810 ml 1337 ml Output Total 580 ml 600 ml 740 ml Balance 520 ml 210 ml 597 ml Physical Exam General: Alert, Oriented X3, Cooperative, No acute distress, mild distress Heart: Regular rate, Normal S1 Lungs: Clear Abdomen: Normal bowel sounds, Soft, No tenderness, Other (SEA serosang) Extremities: No clubbing, No cyanosis, No tenderness/swelling Skin: No rashes, No breakdown Labs Labs: Laboratory Tests Test 01/29/19 04:15 White Blood Count 8.5 x10^3/uL (4.0-11.0) Red Blood Count 2.66 x10^6/uL (3.50-5.40) Hemoglobin 9.3 g/dL (12.0-15.5) Hematocrit 26.3 % (36.0-47.0) Mean Corpuscular Volume 99 fL (79-100) Mean Corpuscular Hemoglobin 35 pg (25-35) Mean Corpuscular Hemoglobin Concent 35 g/dL (31-37) Red Cell Distribution Width 13.6 % (11.5-14.5) Platelet Count 88 x10^3/uL (140-400) Neutrophils (%) (Auto) 68 % (31-73) Lymphocytes (%) (Auto) 21 % (24-48) Monocytes (%) (Auto) 10 % (0-9) Eosinophils (%) (Auto) 0 % (0-3) Basophils (%) (Auto) 1 % (0-3) Neutrophils # (Auto) 5.8 x10^3/uL (1.8-7.7) Lymphocytes # (Auto) 1.8 x10^3/uL (1.0-4.8) Monocytes # (Auto) 0.8 x10^3/uL (0.0-1.1) Eosinophils # (Auto) 0.0 x10^3/uL (0.0-0.7) Basophils # (Auto) 0.0 x10^3/uL (0.0-0.2) Sodium Level 139 mmol/L (136-145) Potassium Level 3.9 mmol/L (3.5-5.1) Chloride Level 105 mmol/L (98-107) Carbon Dioxide Level 29 mmol/L (21-32) Anion Gap 5 (6-14) Blood Urea Nitrogen 8 mg/dL (7-20) Creatinine 0.6 mg/dL (0.6-1.0) Estimated GFR (Cockcroft-Gault) 102.7 BUN/Creatinine Ratio 13 (6-20) Glucose Level 95 mg/dL (70-99) Calcium Level 7.7 mg/dL (8.5-10.1) Total Bilirubin 1.1 mg/dL (0.2-1.0) Aspartate Amino Transf (AST/SGOT) 104 U/L (15-37) Alanine Aminotransferase (ALT/SGPT) 74 U/L (14-59) Alkaline Phosphatase 80 U/L (46-116) Total Protein 5.2 g/dL (6.4-8.2) Albumin 2.1 g/dL (3.4-5.0) Albumin/Globulin Ratio 0.7 (1.0-1.7) Review of Systems Review of Systems: Denies PATRICK Denies vision change Assessment and Plan Assessmemt and Plan Assessment Pancreatic mass H/o hep c Hepatitis Alcoholism Bilateral Mastectomy Hypokalemia Acute pancreatitis 02/05 Hyperlipidemia COPD Periperal neuropathy Cirrhosis Anxiety Plan ICU monitoring RX Metoprolol 12.5 mg BID Alcohol and drug protocol DVT prophylaxis Home meds PT/OT Wound care Full code Await further input from surgery Total time 31 min Comment Review of Relevant I have reviewed the following items dante (where applicable) has been applied. Medications: Current Medications Medications (Trade) Dose Ordered Sig/Deandre Route PRN Reason Start Time Stop Time Status Last Admin Dose Admin Lorazepam (Ativan Inj) 0.5 mg PRN Q6HRS PRN IV ANXIETY / AGITATION 01/28/19 12:30 01/29/19 03:11 Thiamine HCl 100 mg DAILY IM 01/28/19 13:00 02/03/19 12:59 01/28/19 15:42 Lorazepam (Ativan Inj) 2 mg PRN Q1HR PRN IV For CIWA 8-14 01/28/19 13:00 01/29/19 10:20 Albuterol/ Ipratropium (Duoneb) 3 ml RTQID NEB 01/28/19 13:00 01/29/19 08:02 Budesonide (Pulmicort) 0.5 mg RTBID NEB 01/28/19 20:00 01/29/19 08:02 NADIA GREENE III DO Jan 29, 2019 11:35
--- NOTE | 2019-01-29 11:58 | PDOC ---
SURGICAL PROGRESS NOTE Subjective Pt sitting up in bed, comforted by daughter, appears somewhat anxious and favor withdrawal, no n/V and wants to eat, some flatus, pain controlled at 4 Vital Signs Vital Signs Date Time Temp Pulse Resp B/P (MAP) Pulse Ox O2 Delivery O2 Flow Rate FiO2 01/29/19 08:06 99 Nasal Cannula 2.0 01/29/19 06:00 111 118/68 (85) 01/29/19 04:41 14 01/29/19 04:00 98.8 98.8 I&O Intake and Output 01/29/19 06:59 Intake Total 3247 ml Output Total 1920 ml Balance 1327 ml Intake IV Total 3247 ml Output Urine Total 1445 ml Drainage Total 475 ml PATIENT HAS A LEVI: Yes (dc today) General: Alert, Oriented X3, mild distress, Other (appears secondary to anxiety) Abdomen: Soft, No tenderness, Other (SEA drains serosang) Labs Laboratory Tests Test 01/28/19 04:55 01/29/19 04:15 White Blood Count 6.2 x10^3/uL (4.0-11.0) 8.5 x10^3/uL (4.0-11.0) Red Blood Count 2.80 x10^6/uL (3.50-5.40) 2.66 x10^6/uL (3.50-5.40) Hemoglobin 9.5 g/dL (12.0-15.5) 9.3 g/dL (12.0-15.5) Hematocrit 27.9 % (36.0-47.0) 26.3 % (36.0-47.0) Mean Corpuscular Volume 100 fL (79-100) 99 fL (79-100) Mean Corpuscular Hemoglobin 34 pg (25-35) 35 pg (25-35) Mean Corpuscular Hemoglobin Concent 34 g/dL (31-37) 35 g/dL (31-37) Red Cell Distribution Width 13.5 % (11.5-14.5) 13.6 % (11.5-14.5) Platelet Count 92 x10^3/uL (140-400) 88 x10^3/uL (140-400) Neutrophils (%) (Auto) 64 % (31-73) 68 % (31-73) Lymphocytes (%) (Auto) 25 % (24-48) 21 % (24-48) Monocytes (%) (Auto) 11 % (0-9) 10 % (0-9) Eosinophils (%) (Auto) 0 % (0-3) 0 % (0-3) Basophils (%) (Auto) 1 % (0-3) 1 % (0-3) Neutrophils # (Auto) 4.0 x10^3/uL (1.8-7.7) 5.8 x10^3/uL (1.8-7.7) Lymphocytes # (Auto) 1.5 x10^3/uL (1.0-4.8) 1.8 x10^3/uL (1.0-4.8) Monocytes # (Auto) 0.7 x10^3/uL (0.0-1.1) 0.8 x10^3/uL (0.0-1.1) Eosinophils # (Auto) 0.0 x10^3/uL (0.0-0.7) 0.0 x10^3/uL (0.0-0.7) Basophils # (Auto) 0.0 x10^3/uL (0.0-0.2) 0.0 x10^3/uL (0.0-0.2) Sodium Level 139 mmol/L (136-145) 139 mmol/L (136-145) Potassium Level 4.7 mmol/L (3.5-5.1) 3.9 mmol/L (3.5-5.1) Chloride Level 106 mmol/L (98-107) 105 mmol/L (98-107) Carbon Dioxide Level 29 mmol/L (21-32) 29 mmol/L (21-32) Anion Gap 4 (6-14) 5 (6-14) Blood Urea Nitrogen 14 mg/dL (7-20) 8 mg/dL (7-20) Creatinine 0.7 mg/dL (0.6-1.0) 0.6 mg/dL (0.6-1.0) Estimated GFR (Cockcroft-Gault) 85.9 102.7 Glucose Level 129 mg/dL (70-99) 95 mg/dL (70-99) Calcium Level 7.6 mg/dL (8.5-10.1) 7.7 mg/dL (8.5-10.1) BUN/Creatinine Ratio 13 (6-20) Total Bilirubin 1.1 mg/dL (0.2-1.0) Aspartate Amino Transf (AST/SGOT) 104 U/L (15-37) Alanine Aminotransferase (ALT/SGPT) 74 U/L (14-59) Alkaline Phosphatase 80 U/L (46-116) Total Protein 5.2 g/dL (6.4-8.2) Albumin 2.1 g/dL (3.4-5.0) Albumin/Globulin Ratio 0.7 (1.0-1.7) Laboratory Tests Test 01/29/19 04:15 White Blood Count 8.5 x10^3/uL (4.0-11.0) Red Blood Count 2.66 x10^6/uL (3.50-5.40) Hemoglobin 9.3 g/dL (12.0-15.5) Hematocrit 26.3 % (36.0-47.0) Mean Corpuscular Volume 99 fL (79-100) Mean Corpuscular Hemoglobin 35 pg (25-35) Mean Corpuscular Hemoglobin Concent 35 g/dL (31-37) Red Cell Distribution Width 13.6 % (11.5-14.5) Platelet Count 88 x10^3/uL (140-400) Neutrophils (%) (Auto) 68 % (31-73) Lymphocytes (%) (Auto) 21 % (24-48) Monocytes (%) (Auto) 10 % (0-9) Eosinophils (%) (Auto) 0 % (0-3) Basophils (%) (Auto) 1 % (0-3) Neutrophils # (Auto) 5.8 x10^3/uL (1.8-7.7) Lymphocytes # (Auto) 1.8 x10^3/uL (1.0-4.8) Monocytes # (Auto) 0.8 x10^3/uL (0.0-1.1) Eosinophils # (Auto) 0.0 x10^3/uL (0.0-0.7) Basophils # (Auto) 0.0 x10^3/uL (0.0-0.2) Sodium Level 139 mmol/L (136-145) Potassium Level 3.9 mmol/L (3.5-5.1) Chloride Level 105 mmol/L (98-107) Carbon Dioxide Level 29 mmol/L (21-32) Anion Gap 5 (6-14) Blood Urea Nitrogen 8 mg/dL (7-20) Creatinine 0.6 mg/dL (0.6-1.0) Estimated GFR (Cockcroft-Gault) 102.7 BUN/Creatinine Ratio 13 (6-20) Glucose Level 95 mg/dL (70-99) Calcium Level 7.7 mg/dL (8.5-10.1) Total Bilirubin 1.1 mg/dL (0.2-1.0) Aspartate Amino Transf (AST/SGOT) 104 U/L (15-37) Alanine Aminotransferase (ALT/SGPT) 74 U/L (14-59) Alkaline Phosphatase 80 U/L (46-116) Total Protein 5.2 g/dL (6.4-8.2) Albumin 2.1 g/dL (3.4-5.0) Albumin/Globulin Ratio 0.7 (1.0-1.7) Problem List s/p julieth appreciate hospitalists working on withdrawal will try dash and d/c HÉCTOR Chery MD Jan 29, 2019 11:58
[2019-01-29] MEDS: ENOXAPARIN 40 MG/0.4 ML SYRINGE. SQ SCH (12:24)
[2019-01-29] MEDS: FAMOTIDINE 20 MG/2 ML VIAL IVP SCH ×2 (12:24→19:56)
[2019-01-29] MEDS: THIAMINE IM 200 MG/2 ML VIAL. IM SCH (12:24)
[2019-01-29] MEDS: HALOPERIDOL LACTATE 5 MG/ML VIAL. IVP PRN (16:45)
[2019-01-29] MEDS: METOPROLOL TART IMMED RELEASE 25 MG TABLET. PO SCH (16:58)
[2019-01-29] MEDS ORDERED: METOPROLOL TARTRATE 5 MG/5 ML VIAL. IVP SCH (21:00)
[2019-01-30] VITALS (20 sets, daily range): BP systolic 97–132; BP diastolic 56–90
[2019-01-30] MEDS: NORMAL SALINE 35 ML, fentaNYL PF VIAL 250 MCG, ROPIVacaine 0.5% PF 10 ML in EPIDURAL 50 TV EPID PRN ×5 (02:14→20:45)
[2019-01-30] MEDS: IV RINGERS,LACTATED 1000ML 1,000 ML IV SCH (03:20)
[2019-01-30] MEDS: PANTOPRAZOLE 40 MG TABLET.DR. PO SCH (07:30)
[2019-01-30] MEDS: IPRATRPIUM/ALBUTEROL 0.5/2.5MG 3 ML NEBU. NEB SCH ×4 (08:00→19:59)
[2019-01-30] MEDS: BUDESONIDE 0.5 MG/2 ML NEBU. NEB SCH ×2 (08:00→19:59)
--- NOTE | 2019-01-30 08:54 | PDOC ---
SURGICAL PROGRESS NOTE Subjective Pt reports feeling better, slept well last night, no N/V, beto clears, hungry. Daughter at bedside. Pain controlled. Vital Signs Vital Signs Date Time Temp Pulse Resp B/P (MAP) Pulse Ox O2 Delivery O2 Flow Rate FiO2 01/30/19 08:01 98 Nasal Cannula 2.0 01/30/19 06:00 128 17 104/62 (76) 01/30/19 04:00 100.5 100.5 I&O Intake and Output 01/30/19 06:59 Intake Total 3140 ml Output Total 1585 ml Balance 1555 ml Intake Oral 300 ml IV Total 2840 ml Output Urine Total 1135 ml Drainage Total 450 ml # Voids 2 PATIENT HAS A LEVI: No General: Alert, Cooperative, No acute distress Abdomen: Soft, No tenderness, Other (SEA serosang) Labs Laboratory Tests Test 01/29/19 04:15 01/30/19 04:35 White Blood Count 8.5 x10^3/uL (4.0-11.0) Red Blood Count 2.66 x10^6/uL (3.50-5.40) Hemoglobin 9.3 g/dL (12.0-15.5) Hematocrit 26.3 % (36.0-47.0) Mean Corpuscular Volume 99 fL (79-100) Mean Corpuscular Hemoglobin 35 pg (25-35) Mean Corpuscular Hemoglobin Concent 35 g/dL (31-37) Red Cell Distribution Width 13.6 % (11.5-14.5) Platelet Count 88 x10^3/uL (140-400) 92 x10^3/uL (140-400) Neutrophils (%) (Auto) 68 % (31-73) Lymphocytes (%) (Auto) 21 % (24-48) Monocytes (%) (Auto) 10 % (0-9) Eosinophils (%) (Auto) 0 % (0-3) Basophils (%) (Auto) 1 % (0-3) Neutrophils # (Auto) 5.8 x10^3/uL (1.8-7.7) Lymphocytes # (Auto) 1.8 x10^3/uL (1.0-4.8) Monocytes # (Auto) 0.8 x10^3/uL (0.0-1.1) Eosinophils # (Auto) 0.0 x10^3/uL (0.0-0.7) Basophils # (Auto) 0.0 x10^3/uL (0.0-0.2) Sodium Level 139 mmol/L (136-145) Potassium Level 3.9 mmol/L (3.5-5.1) Chloride Level 105 mmol/L (98-107) Carbon Dioxide Level 29 mmol/L (21-32) Anion Gap 5 (6-14) Blood Urea Nitrogen 8 mg/dL (7-20) Creatinine 0.6 mg/dL (0.6-1.0) Estimated GFR (Cockcroft-Gault) 102.7 BUN/Creatinine Ratio 13 (6-20) Glucose Level 95 mg/dL (70-99) Calcium Level 7.7 mg/dL (8.5-10.1) Total Bilirubin 1.1 mg/dL (0.2-1.0) Aspartate Amino Transf (AST/SGOT) 104 U/L (15-37) Alanine Aminotransferase (ALT/SGPT) 74 U/L (14-59) Alkaline Phosphatase 80 U/L (46-116) Total Protein 5.2 g/dL (6.4-8.2) Albumin 2.1 g/dL (3.4-5.0) Albumin/Globulin Ratio 0.7 (1.0-1.7) Laboratory Tests Test 01/30/19 04:35 Platelet Count 92 x10^3/uL (140-400) Problem List s/p julieth will continue to monitor in ICU, given tachycardia and anxiety, favor withdrawal. Cont dash. EDVIN. HÉCTOR RANDALL MD Jan 30, 2019 08:54
[2019-01-30] MEDS: FAMOTIDINE 20 MG/2 ML VIAL IVP SCH ×2 (09:10→20:49)
[2019-01-30] MEDS: THIAMINE IM 200 MG/2 ML VIAL. IM SCH (09:11)
[2019-01-30] MEDS: METOPROLOL TART IMMED RELEASE 25 MG TABLET. PO SCH ×2 (09:12→22:31)
--- NOTE | 2019-01-30 10:59 | PDOC ---
[employer] PROGRESS NOTE Chief Complaint Chief Complaint Pancreatic mass H/o hep c Hepatitis Alcoholism Bilateral Mastectomy Hypokalemia Acute pancreatitis 02/05 Hyperlipidemia COPD Periperal neuropathy Cirrhosis Anxiety History of Present Illness History of Present Illness 9�13�2019 Patient seen and examined in the ICU Patient's daughter still present in his good support for her (Griselda) Discussed with RN Chart reviewed 01/29/19 Pt seen and examined in ICU at bedside s/p [place] SEA drain at RLQ intact Pt sleeping upon entry and with daughter today- appears in NAD Daughter says pt is alcoholic; she also says pt did not sleep well last night DW RN Vitals/I&O Vitals/I&O: Vital Signs Date Time Temp Pulse Resp B/P (MAP) Pulse Ox O2 Delivery O2 Flow Rate FiO2 01/30/19 09:12 107/62 01/30/19 08:01 98 Nasal Cannula 2.0 01/30/19 06:00 128 17 01/30/19 04:00 100.5 100.5 I & O 01/29/19 01/29/19 01/30/19 14:59 22:59 06:59 Intake Total 1324 ml 1816 ml Output Total 455 ml 530 ml 600 ml Balance -455 ml 794 ml 1216 ml Physical Exam General: Alert, Cooperative, No acute distress Heart: Regular rate, Normal S1 Lungs: Clear Abdomen: Soft, No tenderness, Other (SEA serosang) Extremities: No clubbing, No cyanosis, No tenderness/swelling Skin: No rashes, No breakdown Labs Labs: Laboratory Tests Test 01/30/19 04:35 Platelet Count 92 x10^3/uL (140-400) Assessment and Plan Assessmemt and Plan Assessmemt and Plan Assessment Pancreatic mass H/o hep c Hepatitis Alcoholism Bilateral Mastectomy Hypokalemia Acute pancreatitis 02/05 Hyperlipidemia COPD Periperal neuropathy Cirrhosis Anxiety Plan ICU monitoring Start PPN RX Metoprolol 12.5 mg BID Alcohol protocol DVT prophylaxis Home meds PT/OT Wound care Full code Await further input from surgery Comment Review of Relevant I have reviewed the following items dante (where applicable) has been applied. Medications: Current Medications Medications (Trade) Dose Ordered Sig/Deandre Route PRN Reason Start Time Stop Time Status Last Admin Dose Admin Metoprolol Tartrate (Lopressor) 12.5 mg BID PO 01/29/19 17:00 01/30/19 09:12 CASTLE,NIAL K III DO Jan 30, 2019 10:59
[2019-01-30] MEDS: AMINO AC 3%/ELECTROLYTE/GLYCER 1,000 ML IV SCH (11:54)
[2019-01-30] MEDS: ONDANSETRON PF 4 MG/2 ML VIAL. IV PRN (20:42)
[2019-01-31] VITALS (25 sets, daily range): BP systolic 91–143; BP diastolic 53–88
[2019-01-31] MEDS: AMINO AC 3%/ELECTROLYTE/GLYCER 1,000 ML IV SCH ×2 (00:28→14:40)
[2019-01-31] MEDS: ACETAMINOPHEN 325 MG TABLET. PO PRN ×3 (01:28→19:26)
[2019-01-31] MEDS: NORMAL SALINE 35 ML, fentaNYL PF VIAL 250 MCG, ROPIVacaine 0.5% PF 10 ML in EPIDURAL 50 TV EPID PRN ×6 (01:30→21:04)
[2019-01-31 04:40] LABS: HEMATOCRIT 26.5 % (36.0-47.0); HEMOGLOBIN 9.2 g/dL (12.0-15.5); RED BLOOD COUNT 2.7 x10^6/uL (3.50-5.40); RED CELL DISTRIBUTION WIDTH 12.8 % (11.5-14.5)
[2019-01-31 04:52] LABS: CALCIUM 7.8 mg/dL (8.5-10.1); CREATININE 0.6 mg/dL (0.6-1.0); GFR 102.7; POTASSIUM 3.7 mmol/L (3.5-5.1)
[2019-01-31] MEDS: ONDANSETRON PF 4 MG/2 ML VIAL. IV PRN ×2 (06:02→16:31)
[2019-01-31] MEDS: IPRATRPIUM/ALBUTEROL 0.5/2.5MG 3 ML NEBU. NEB SCH ×4 (07:21→20:08)
[2019-01-31] MEDS: BUDESONIDE 0.5 MG/2 ML NEBU. NEB SCH ×2 (07:21→20:08)
[2019-01-31] MEDS: PANTOPRAZOLE 40 MG TABLET.DR. PO SCH (08:10)
[2019-01-31] MEDS: FAMOTIDINE 20 MG/2 ML VIAL IVP SCH ×2 (08:10→21:08)
[2019-01-31] MEDS: THIAMINE IM 200 MG/2 ML VIAL. IM SCH (09:00)
[2019-01-31] MEDS: METOPROLOL TART IMMED RELEASE 25 MG TABLET. PO SCH ×2 (09:00→21:08)
--- NOTE | 2019-01-31 09:07 | PDOC ---
SURGICAL PROGRESS NOTE Subjective Patient resting comfortably complaints of abdominal soreness no nausea Vital Signs Vital Signs Date Time Temp Pulse Resp B/P (MAP) Pulse Ox O2 Delivery O2 Flow Rate FiO2 01/31/19 08:00 103.0 112 21 92/70 (77) 91 Room Air 103.0 01/31/19 01:30 2.0 I&O Intake and Output 01/31/19 07:00 Intake Total 2078.40 ml Output Total 2430 ml Balance -351.60 ml Intake Oral 500 ml IV Total 1578.40 ml Output Urine Total 950 ml Gastric Drainage Total 400 ml Drainage Total 1080 ml # Voids 4 PATIENT HAS A LEVI: No General: Alert, Oriented X3, Cooperative, mild distress Abdomen: Normal bowel sounds, Soft, Other (mild incisional tenderness SEA drain was serosanguineous drainage and a more output) Labs Laboratory Tests Test 01/30/19 04:35 01/31/19 04:15 Platelet Count 92 x10^3/uL (140-400) 141 x10^3/uL (140-400) White Blood Count 13.0 x10^3/uL (4.0-11.0) Red Blood Count 2.70 x10^6/uL (3.50-5.40) Hemoglobin 9.2 g/dL (12.0-15.5) Hematocrit 26.5 % (36.0-47.0) Mean Corpuscular Volume 98 fL (79-100) Mean Corpuscular Hemoglobin 34 pg (25-35) Mean Corpuscular Hemoglobin Concent 35 g/dL (31-37) Red Cell Distribution Width 12.8 % (11.5-14.5) Sodium Level 133 mmol/L (136-145) Potassium Level 3.7 mmol/L (3.5-5.1) Chloride Level 100 mmol/L (98-107) Carbon Dioxide Level 31 mmol/L (21-32) Anion Gap 2 (6-14) Blood Urea Nitrogen 6 mg/dL (7-20) Creatinine 0.6 mg/dL (0.6-1.0) Estimated GFR (Cockcroft-Gault) 102.7 Glucose Level 174 mg/dL (70-99) Calcium Level 7.8 mg/dL (8.5-10.1) Laboratory Tests Test 01/31/19 04:15 White Blood Count 13.0 x10^3/uL (4.0-11.0) Red Blood Count 2.70 x10^6/uL (3.50-5.40) Hemoglobin 9.2 g/dL (12.0-15.5) Hematocrit 26.5 % (36.0-47.0) Mean Corpuscular Volume 98 fL (79-100) Mean Corpuscular Hemoglobin 34 pg (25-35) Mean Corpuscular Hemoglobin Concent 35 g/dL (31-37) Red Cell Distribution Width 12.8 % (11.5-14.5) Platelet Count 141 x10^3/uL (140-400) Sodium Level 133 mmol/L (136-145) Potassium Level 3.7 mmol/L (3.5-5.1) Chloride Level 100 mmol/L (98-107) Carbon Dioxide Level 31 mmol/L (21-32) Anion Gap 2 (6-14) Blood Urea Nitrogen 6 mg/dL (7-20) Creatinine 0.6 mg/dL (0.6-1.0) Estimated GFR (Cockcroft-Gault) 102.7 Glucose Level 174 mg/dL (70-99) Calcium Level 7.8 mg/dL (8.5-10.1) Assessment/Plan Mildly elevated white count afebrile monitor closely Status post Whipple procedure concern for alcohol withdrawal we'll monitor in ICU Continue supportive care CARLOS FUNG MD Jan 31, 2019 09:07
--- NOTE | 2019-01-31 11:46 | PDOC ---
[employer] [facility] PROGRESS NOTE Chief Complaint Chief Complaint Pancreatic mass H/o hep c Hepatitis Alcoholism Bilateral Mastectomy Hypokalemia Acute pancreatitis 02/05 Hyperlipidemia COPD Periperal neuropathy Cirrhosis Anxiety History of Present Illness History of Present Illness 01/31/19 Pt seen and examined in the ICU Pt is awake/talking and able to tolerate PO meds DW RN Chart Reviewed 9�13�2019 Patient seen and examined in the ICU Patient's daughter still present in his good support for her (Griselda) Discussed with RN Chart reviewed 01/29/19 Pt seen and examined in ICU at bedside s/p [place] SEA drain at RLQ intact Pt sleeping upon entry and with daughter today- appears in NAD Daughter says pt is alcoholic; she also says pt did not sleep well last night DW RN Vitals/I&O Vitals/I&O: Vital Signs Date Time Temp Pulse Resp B/P (MAP) Pulse Ox O2 Delivery O2 Flow Rate FiO2 01/31/19 10:54 18 Room Air 01/31/19 10:17 102 91/61 01/31/19 10:12 98 01/31/19 08:00 103.0 103.0 01/31/19 01:30 2.0 I & O 01/30/19 01/30/19 01/31/19 14:59 22:59 06:59 Intake Total 100 ml 820 ml 1158.40 ml Output Total 630 ml 1200 ml 600 ml Balance -530 ml -380 ml 558.40 ml Physical Exam General: Alert, Oriented X3, Cooperative, mild distress Heart: Regular rate, Normal S1 Lungs: Clear Abdomen: Normal bowel sounds, Soft, Other (mild incisional tenderness SEA drain was serosanguineous drainage and a more output) Extremities: No clubbing, No cyanosis, No tenderness/swelling Skin: No rashes, No breakdown Labs Labs: Laboratory Tests Test 01/31/19 04:15 White Blood Count 13.0 x10^3/uL (4.0-11.0) Red Blood Count 2.70 x10^6/uL (3.50-5.40) Hemoglobin 9.2 g/dL (12.0-15.5) Hematocrit 26.5 % (36.0-47.0) Mean Corpuscular Volume 98 fL (79-100) Mean Corpuscular Hemoglobin 34 pg (25-35) Mean Corpuscular Hemoglobin Concent 35 g/dL (31-37) Red Cell Distribution Width 12.8 % (11.5-14.5) Platelet Count 141 x10^3/uL (140-400) Sodium Level 133 mmol/L (136-145) Potassium Level 3.7 mmol/L (3.5-5.1) Chloride Level 100 mmol/L (98-107) Carbon Dioxide Level 31 mmol/L (21-32) Anion Gap 2 (6-14) Blood Urea Nitrogen 6 mg/dL (7-20) Creatinine 0.6 mg/dL (0.6-1.0) Estimated GFR (Cockcroft-Gault) 102.7 Glucose Level 174 mg/dL (70-99) Calcium Level 7.8 mg/dL (8.5-10.1) Review of Systems Review of Systems: co weakness co abdominal donna Assessment and Plan Assessmemt and Plan Assessment Pancreatic mass H/o hep c Hepatitis Alcoholism Bilateral Mastectomy Hypokalemia Acute pancreatitis 02/05 Hyperlipidemia COPD Periperal neuropathy Cirrhosis Anxiety Plan ICU monitoring Wound Care PPN Procalamine PO Thiamine Metoprolol 12.5 mg BID Alcohol withdrawal protocol DVT prophylaxis Home meds PT/OT Hope to advance diet and tolerating clear liquids Full code Await further input from surgery Comment Review of Relevant I have reviewed the following items dante (where applicable) has been applied. Medications: Current Medications Medications (Trade) Dose Ordered Sig/Deandre Route PRN Reason Start Time Stop Time Status Last Admin Dose Admin Acetaminophen (Tylenol) 650 mg PRN Q6HRS PRN PO fever 01/31/19 01:15 01/31/19 08:10 NADIA GREENE III DO Jan 31, 2019 11:46
[2019-01-31] MEDS: THIAMINE 100 MG TABLET. PO SCH (12:09)
[2019-01-31] MEDS: HEPARIN for SUB-Q USE 5,000 UNIT/ML VIAL. SQ SCH ×2 (13:57→21:09)
[2019-02-01] VITALS (23 sets, daily range): BP systolic 93–132; BP diastolic 59–84
[2019-02-01] MEDS: NORMAL SALINE 35 ML, fentaNYL PF VIAL 250 MCG, ROPIVacaine 0.5% PF 10 ML in EPIDURAL 50 TV EPID PRN ×3 (01:04→08:00)
[2019-02-01] MEDS: AMINO AC 3%/ELECTROLYTE/GLYCER 1,000 ML IV SCH ×2 (01:06→20:48)
[2019-02-01] MEDS: ONDANSETRON PF 4 MG/2 ML VIAL. IV PRN ×3 (01:31→23:49)
[2019-02-01 05:15] LABS: BASO % 0 % (0-3); EOS % 0 % (0-3); HEMATOCRIT 28.4 % (36.0-47.0); HEMOGLOBIN 9.9 g/dL (12.0-15.5); LYMPH # 1.7 x10^3/uL (1.0-4.8); LYMPH % 10 % (24-48); MEAN CORPUSCULAR HEMOGLOBIN 34 pg (25-35); MEAN CORPUSCULAR HGB CONC 35 g/dL (31-37); MEAN CORPUSCULAR VOLUME 97 fL (79-100); MONO # 1.6 x10^3/uL (0.0-1.1); MONO % 9 % (0-9); NEUT # 14.4 x10^3/uL (1.8-7.7); NEUT % 81 % (31-73); PLATELET COUNT 157 x10^3/uL (140-400); RED BLOOD COUNT 2.92 x10^6/uL (3.50-5.40); RED CELL DISTRIBUTION WIDTH 12.7 % (11.5-14.5); WHITE BLOOD COUNT 17.8 x10^3/uL (4.0-11.0)
[2019-02-01 05:36] LABS: CALCIUM 7.7 mg/dL (8.5-10.1); CREATININE 0.6 mg/dL (0.6-1.0); GFR 102.7; POTASSIUM 3.7 mmol/L (3.5-5.1)
[2019-02-01 06:50] LABS: % BANDS 30 % (0-9); % BASOS 1 % (0-3); % LYMPHS 11 % (24-48); % MONOS 5 % (0-10); % SEGS 53 % (35-66)
[2019-02-01 06:52] LABS: PLT ESTIMATE ADEQUATE (ADEQUATE); POLYCHROMASIA SLIGHT
[2019-02-01] MEDS: IPRATRPIUM/ALBUTEROL 0.5/2.5MG 3 ML NEBU. NEB SCH ×4 (07:38→20:34)
[2019-02-01] MEDS: BUDESONIDE 0.5 MG/2 ML NEBU. NEB SCH ×2 (07:39→20:34)
--- NOTE | 2019-02-01 08:21 | PDOC ---
SURGICAL PROGRESS NOTE Subjective Patient somewhat confused not communicating much. Not taking much clear liquids. States she has abdominal pain at the incision Vital Signs Vital Signs Date Time Temp Pulse Resp B/P (MAP) Pulse Ox O2 Delivery O2 Flow Rate FiO2 02/01/19 08:00 17 Room Air 02/01/19 08:00 120 119/67 (84) 93 02/01/19 07:00 102.6 102.6 02/01/19 05:26 97.0 I&O Intake and Output 02/01/19 06:59 Intake Total 2117 ml Output Total 1995 ml Balance 122 ml Intake Oral 150 ml IV Total 1967 ml Output Urine Total 1150 ml Drainage Total 845 ml # Voids 1 PATIENT HAS A LEVI: Yes General: Cooperative, mild distress Abdomen: Normal bowel sounds, Soft, Other (mild incisional tenderness wound clean dry and intact SEA drains intact with serosanguineous drainage nonbilious) Labs Laboratory Tests Test 01/31/19 04:15 02/01/19 04:30 White Blood Count 13.0 x10^3/uL (4.0-11.0) 17.8 x10^3/uL (4.0-11.0) Red Blood Count 2.70 x10^6/uL (3.50-5.40) 2.92 x10^6/uL (3.50-5.40) Hemoglobin 9.2 g/dL (12.0-15.5) 9.9 g/dL (12.0-15.5) Hematocrit 26.5 % (36.0-47.0) 28.4 % (36.0-47.0) Mean Corpuscular Volume 98 fL (79-100) 97 fL (79-100) Mean Corpuscular Hemoglobin 34 pg (25-35) 34 pg (25-35) Mean Corpuscular Hemoglobin Concent 35 g/dL (31-37) 35 g/dL (31-37) Red Cell Distribution Width 12.8 % (11.5-14.5) 12.7 % (11.5-14.5) Platelet Count 141 x10^3/uL (140-400) 157 x10^3/uL (140-400) Sodium Level 133 mmol/L (136-145) 133 mmol/L (136-145) Potassium Level 3.7 mmol/L (3.5-5.1) 3.7 mmol/L (3.5-5.1) Chloride Level 100 mmol/L (98-107) 99 mmol/L (98-107) Carbon Dioxide Level 31 mmol/L (21-32) 31 mmol/L (21-32) Anion Gap 2 (6-14) 3 (6-14) Blood Urea Nitrogen 6 mg/dL (7-20) 10 mg/dL (7-20) Creatinine 0.6 mg/dL (0.6-1.0) 0.6 mg/dL (0.6-1.0) Estimated GFR (Cockcroft-Gault) 102.7 102.7 Glucose Level 174 mg/dL (70-99) 123 mg/dL (70-99) Calcium Level 7.8 mg/dL (8.5-10.1) 7.7 mg/dL (8.5-10.1) Neutrophils (%) (Auto) 81 % (31-73) Lymphocytes (%) (Auto) 10 % (24-48) Monocytes (%) (Auto) 9 % (0-9) Eosinophils (%) (Auto) 0 % (0-3) Basophils (%) (Auto) 0 % (0-3) Neutrophils # (Auto) 14.4 x10^3/uL (1.8-7.7) Lymphocytes # (Auto) 1.7 x10^3/uL (1.0-4.8) Monocytes # (Auto) 1.6 x10^3/uL (0.0-1.1) Eosinophils # (Auto) 0.0 x10^3/uL (0.0-0.7) Basophils # (Auto) 0.0 x10^3/uL (0.0-0.2) Segmented Neutrophils % 53 % (35-66) Band Neutrophils % 30 % (0-9) Lymphocytes % 11 % (24-48) Monocytes % 5 % (0-10) Basophils % 1 % (0-3) Platelet Estimate Adequate (ADEQUATE) Polychromasia Slight Laboratory Tests Test 02/01/19 04:30 White Blood Count 17.8 x10^3/uL (4.0-11.0) Red Blood Count 2.92 x10^6/uL (3.50-5.40) Hemoglobin 9.9 g/dL (12.0-15.5) Hematocrit 28.4 % (36.0-47.0) Mean Corpuscular Volume 97 fL (79-100) Mean Corpuscular Hemoglobin 34 pg (25-35) Mean Corpuscular Hemoglobin Concent 35 g/dL (31-37) Red Cell Distribution Width 12.7 % (11.5-14.5) Platelet Count 157 x10^3/uL (140-400) Neutrophils (%) (Auto) 81 % (31-73) Lymphocytes (%) (Auto) 10 % (24-48) Monocytes (%) (Auto) 9 % (0-9) Eosinophils (%) (Auto) 0 % (0-3) Basophils (%) (Auto) 0 % (0-3) Neutrophils # (Auto) 14.4 x10^3/uL (1.8-7.7) Lymphocytes # (Auto) 1.7 x10^3/uL (1.0-4.8) Monocytes # (Auto) 1.6 x10^3/uL (0.0-1.1) Eosinophils # (Auto) 0.0 x10^3/uL (0.0-0.7) Basophils # (Auto) 0.0 x10^3/uL (0.0-0.2) Segmented Neutrophils % 53 % (35-66) Band Neutrophils % 30 % (0-9) Lymphocytes % 11 % (24-48) Monocytes % 5 % (0-10) Basophils % 1 % (0-3) Platelet Estimate Adequate (ADEQUATE) Polychromasia Slight Sodium Level 133 mmol/L (136-145) Potassium Level 3.7 mmol/L (3.5-5.1) Chloride Level 99 mmol/L (98-107) Carbon Dioxide Level 31 mmol/L (21-32) Anion Gap 3 (6-14) Blood Urea Nitrogen 10 mg/dL (7-20) Creatinine 0.6 mg/dL (0.6-1.0) Estimated GFR (Cockcroft-Gault) 102.7 Glucose Level 123 mg/dL (70-99) Calcium Level 7.7 mg/dL (8.5-10.1) Assessment/Plan Status post Whipple procedure. Having fevers with elevated white count 17,000 will obtain blood cultures chest x-ray consult infectious disease for further evaluation Alcohol withdrawal on benzodiazepine Continue supportive care CARLOS FUNG MD Feb 01, 2019 08:21
[2019-02-01] MEDS: THIAMINE 100 MG TABLET. PO SCH (08:42)
[2019-02-01] MEDS: ACETAMINOPHEN 325 MG TABLET. PO PRN (08:43)
[2019-02-01] MEDS: FAMOTIDINE 20 MG/2 ML VIAL IVP SCH ×2 (08:43→20:48)
[2019-02-01] MEDS: PANTOPRAZOLE 40 MG TABLET.DR. PO SCH (08:43)
[2019-02-01] MEDS: METOPROLOL TART IMMED RELEASE 25 MG TABLET. PO SCH ×2 (08:43→21:00)
[2019-02-01] MEDS: HEPARIN for SUB-Q USE 5,000 UNIT/ML VIAL. SQ SCH ×2 (08:45→20:50)
--- NOTE | 2019-02-01 09:26 | PDOC ---
Infectious Disease Note Vital Signs: Vital Signs Vital Signs Date Time Temp Pulse Resp B/P (MAP) Pulse Ox O2 Delivery O2 Flow Rate FiO2 02/01/19 08:46 19 93 Room Air 02/01/19 08:45 120 119/67 02/01/19 07:00 102.6 102.6 02/01/19 05:26 97.0 Medications: Inpatient Meds: Current Medications Medications (Trade) Dose Ordered Sig/Deandre Start Time Stop Time Status Last Admin Dose Admin Acetaminophen (Tylenol) 650 mg PRN Q6HRS PRN 01/31/19 01:15 02/01/19 08:45 650 MG Albuterol Sulfate (Ventolin Neb Soln) 2.5 mg PRN Q6HRS PRN 01/28/19 14:00 Albuterol/ Ipratropium (Duoneb) 3 ml RTQID 01/28/19 13:00 02/01/19 07:39 3 ML Amino Acids/ Glycerin/ Electrolytes 1,000 ml @ 75 mls/hr [id number] 01/30/19 11:30 02/01/19 01:31 75 MLS/HR Budesonide (Pulmicort) 0.5 mg RTBID 01/28/19 20:00 02/01/19 07:39 0.5 MG Cefoxitin Sodium (Mefoxin) 2 gm 1X PREOP PRN 01/27/19 15:15 01/28/19 10:13 DC 01/27/19 16:47 2 GM Cellulose (Surgicel Hemostat 4x8) 1 each STK-MED ONCE 01/27/19 11:38 01/27/19 11:38 DC 01/27/19 11:39 1 EACH Dexamethasone Sodium Phosphate (Decadron) 4 mg STK-MED ONCE 01/27/19 09:11 01/27/19 09:12 DC Diphenhydramine HCl (Benadryl) 25 mg PRN Q15MIN PRN 01/28/19 13:00 Enoxaparin Sodium (Lovenox 40mg Syringe) 40 mg Q24H 01/28/19 09:00 01/29/19 17:14 DC 01/29/19 12:24 40 MG Epinephrine HCl (EPINEPHrine SYRINGE) 1 mg STK-MED ONCE 01/27/19 10:15 01/27/19 10:16 DC Famotidine (Pepcid Vial) 20 mg BID 01/27/19 21:00 02/01/19 08:45 20 MG Fentanyl Citrate (Fentanyl 2ml Vial) 100 mcg STK-MED ONCE 01/27/19 09:11 01/27/19 09:11 DC Glycopyrrolate (Robinul) 1 mg STK-MED ONCE 01/27/19 09:11 01/27/19 09:11 DC Haloperidol Lactate (Haldol Inj) 5 mg PRN Q4HRS PRN 01/28/19 13:00 01/29/19 16:46 5 MG Heparin Sodium (Porcine) (Heparin Sodium) 5,000 unit Q12HR 01/31/19 14:00 02/01/19 08:45 5,000 UNIT Hydromorphone HCl (Dilaudid) 0.5 mg PRN Q10MIN PRN 01/27/19 07:00 01/28/19 06:59 DC Ibuprofen (Motrin) 400 mg PRN Q6HRS PRN 01/27/19 09:30 Lidocaine HCl (Lidocaine Pf 2% Vial) 5 ml STK-MED ONCE 01/27/19 10:15 01/27/19 10:16 DC Linezolid/Dextrose 300 ml @ 300 mls/hr Q12HR 02/01/19 10:00 Lorazepam (Ativan Inj) 4 mg PRN Q15MIN PRN 01/28/19 13:00 Lorazepam (Ativan) 1 mg PRN Q6HRS PRN 01/28/19 14:00 Metoprolol Tartrate (Lopressor Vial) 12.5 mg BID 01/29/19 21:00 01/29/19 14:50 DC Metoprolol Tartrate (Lopressor) 12.5 mg BID 01/29/19 17:00 02/01/19 08:45 12.5 MG Micafungin Sodium 100 mg/Dextrose 100 ml @ 100 mls/hr Q24H 02/01/19 11:00 Midazolam HCl (Versed) 2 mg STK-MED ONCE 01/27/19 09:11 01/27/19 09:11 DC Morphine Sulfate (Morphine Sulfate) 1 mg PRN Q10MIN PRN 01/27/19 07:00 01/28/19 06:59 DC Naloxone HCl (Narcan) 0.4 mg PRN Q2MIN PRN 01/27/19 15:45 Neostigmine Methylsulfate (Neostigmine Methylsulfate) 5 mg STK-MED ONCE 01/27/19 09:11 01/27/19 09:11 DC Non-Formulary Medication (Fluticasone/ Umeclidin/ Vilanter (Trelegy Ellipta 100-62.5-25)) 1 puff DAILY 01/29/19 09:00 UNV Ondansetron HCl (Zofran) 4 mg PRN Q6HRS PRN 01/27/19 15:45 02/01/19 01:31 4 MG Pantoprazole Sodium (Protonix) 40 mg DAILYAC 01/28/19 16:30 02/01/19 08:45 40 MG Phenylephrine HCl (Bret-Synephrine Inj) 10 mg STK-MED ONCE 01/27/19 14:49 01/27/19 14:49 DC Piperacillin Sod/ Tazobactam Sod 3.375 gm/Sodium Chloride 50 ml @ 100 mls/hr Q6HRS 02/01/19 10:00 Prochlorperazine Edisylate (Compazine) 5 mg PACU PRN PRN 01/27/19 07:00 01/28/19 06:59 DC 01/28/19 03:33 5 MG Propofol 20 ml @ As Directed STK-MED ONCE 01/27/19 09:12 01/27/19 09:12 DC Ringer's Solution 1,000 ml @ 100 mls/hr Q10H 01/27/19 15:33 01/30/19 14:52 DC 01/30/19 03:20 100 MLS/HR Rocuronium Bosler (Zemuron) 50 mg STK-MED ONCE 01/27/19 12:09 01/27/19 12:09 DC Ropivacaine (Naropin 0.5%) 20 ml STK-MED ONCE 01/27/19 10:17 01/27/19 10:18 DC Sevoflurane (Ultane) 90 ml STK-MED ONCE 01/27/19 09:11 01/27/19 09:11 DC Sodium Chloride (Normal Saline Flush) 3 ml QSHIFT PRN 01/27/19 15:45 Sodium Chloride 35 ml/Fentanyl Citrate 250 mcg/ Ropivacaine 10 ml/ Epidural Dosage Infused (Pha) 50 ml @ 0 mls/hr CONT PRN 01/28/19 08:15 02/01/19 08:00 9 MLS/HR Thiamine Mononitrate (Vitamin B-1) 100 mg DAILY 01/31/19 12:30 02/01/19 08:45 100 MG Thiamine HCl 100 mg DAILY 01/28/19 13:00 01/31/19 11:44 DC 01/30/19 09:12 100 MG Throat Lozenges (Cepacol Sore Throat Lozenge) 1 brian PRN Q2HRS PRN 01/28/19 09:30 01/28/19 10:49 1 BRIAN Labs: Lab Laboratory Tests Test 02/01/19 04:30 White Blood Count 17.8 x10^3/uL (4.0-11.0) Red Blood Count 2.92 x10^6/uL (3.50-5.40) Hemoglobin 9.9 g/dL (12.0-15.5) Hematocrit 28.4 % (36.0-47.0) Mean Corpuscular Volume 97 fL (79-100) Mean Corpuscular Hemoglobin 34 pg (25-35) Mean Corpuscular Hemoglobin Concent 35 g/dL (31-37) Red Cell Distribution Width 12.7 % (11.5-14.5) Platelet Count 157 x10^3/uL (140-400) Neutrophils (%) (Auto) 81 % (31-73) Lymphocytes (%) (Auto) 10 % (24-48) Monocytes (%) (Auto) 9 % (0-9) Eosinophils (%) (Auto) 0 % (0-3) Basophils (%) (Auto) 0 % (0-3) Neutrophils # (Auto) 14.4 x10^3/uL (1.8-7.7) Lymphocytes # (Auto) 1.7 x10^3/uL (1.0-4.8) Monocytes # (Auto) 1.6 x10^3/uL (0.0-1.1) Eosinophils # (Auto) 0.0 x10^3/uL (0.0-0.7) Basophils # (Auto) 0.0 x10^3/uL (0.0-0.2) Segmented Neutrophils % 53 % (35-66) Band Neutrophils % 30 % (0-9) Lymphocytes % 11 % (24-48) Monocytes % 5 % (0-10) Basophils % 1 % (0-3) Platelet Estimate Adequate (ADEQUATE) Polychromasia Slight Sodium Level 133 mmol/L (136-145) Potassium Level 3.7 mmol/L (3.5-5.1) Chloride Level 99 mmol/L (98-107) Carbon Dioxide Level 31 mmol/L (21-32) Anion Gap 3 (6-14) Blood Urea Nitrogen 10 mg/dL (7-20) Creatinine 0.6 mg/dL (0.6-1.0) Estimated GFR (Cockcroft-Gault) 102.7 Glucose Level 123 mg/dL (70-99) Calcium Level 7.7 mg/dL (8.5-10.1) Objective: Assessment: pt seen and examined ID Consult dictated IMP: Fever Leucocytosis S/P whipples Abdominal pain ETOH withdrawl anxiety h/o hepatitis c Plan: Plan of Care Cont Zosyn, Zyvvox, Micafungin CT abdomen and pelvis CXR add lactic acid f/u bc,ua and urine c/s f/u labs in am and cults maintain aspiration precautions Thank you [id number] TARA GAXIOLA MD Feb 01, 2019 09:26
[2019-02-01] MEDS ORDERED: NORMAL SALINE 35 ML, fentaNYL PF VIAL 250 MCG, ROPIVacaine 0.5% PF 10 ML in EPIDURAL 50 TV EPID PRN (10:15)
[2019-02-01] MEDS: PIPERACILLIN/TAZOBACTAM 3.375 GM in IV NORMAL SALINE 50ML 50 ML IV SCH ×3 (10:45→23:41)
--- NOTE | 2019-02-01 11:58 | PDOC ---
[facility] [facility] PROGRESS NOTE Chief Complaint Chief Complaint Pancreatic mass H/o hep c Hepatitis Alcoholism Bilateral Mastectomy Hypokalemia Acute pancreatitis 02/05 Hyperlipidemia COPD Periperal neuropathy Cirrhosis Anxiety History of Present Illness History of Present Illness 02/01/19 Pt seen/examined in the ICU Pt is awake, but weak with nausea and pain Chart Reviewed DW RN and family 01/31/19 Pt seen and examined in the ICU Pt is awake/talking and able to tolerate PO meds DW RN Chart Reviewed 9�13�2019 Patient seen and examined in the ICU Patient's daughter still present in his good support for her (Griselda) Discussed with RN Chart reviewed 01/29/19 Pt seen and examined in ICU at bedside s/p Whipple SEA drain at RLQ intact Pt sleeping upon entry and with daughter today- appears in NAD Daughter says pt is alcoholic; she also says pt did not sleep well last night LANG RN Vitals/I&O Vitals/I&O: Vital Signs Date Time Temp Pulse Resp B/P (MAP) Pulse Ox O2 Delivery O2 Flow Rate FiO2 02/01/19 11:16 19 95 Room Air 97.0 02/01/19 11:00 101 120/76 (91) 02/01/19 07:00 102.6 102.6 I & O 01/31/19 01/31/19 02/01/19 15:00 23:00 07:00 Intake Total 150 ml 979 ml 1018 ml Output Total 625 ml 960 ml 610 ml Balance -475 ml 19 ml 408 ml Physical Exam General: Cooperative, mild distress Heart: Regular rate, Normal S1 Lungs: Clear Abdomen: Normal bowel sounds, Soft, Other (mild incisional tenderness wound clean dry and intact SEA drains intact with serosanguineous drainage nonbilious) Extremities: No clubbing, No cyanosis, No tenderness/swelling Skin: No rashes, No breakdown Labs Labs: Laboratory Tests Test 02/01/19 04:30 White Blood Count 17.8 x10^3/uL (4.0-11.0) Red Blood Count 2.92 x10^6/uL (3.50-5.40) Hemoglobin 9.9 g/dL (12.0-15.5) Hematocrit 28.4 % (36.0-47.0) Mean Corpuscular Volume 97 fL (79-100) Mean Corpuscular Hemoglobin 34 pg (25-35) Mean Corpuscular Hemoglobin Concent 35 g/dL (31-37) Red Cell Distribution Width 12.7 % (11.5-14.5) Platelet Count 157 x10^3/uL (140-400) Neutrophils (%) (Auto) 81 % (31-73) Lymphocytes (%) (Auto) 10 % (24-48) Monocytes (%) (Auto) 9 % (0-9) Eosinophils (%) (Auto) 0 % (0-3) Basophils (%) (Auto) 0 % (0-3) Neutrophils # (Auto) 14.4 x10^3/uL (1.8-7.7) Lymphocytes # (Auto) 1.7 x10^3/uL (1.0-4.8) Monocytes # (Auto) 1.6 x10^3/uL (0.0-1.1) Eosinophils # (Auto) 0.0 x10^3/uL (0.0-0.7) Basophils # (Auto) 0.0 x10^3/uL (0.0-0.2) Segmented Neutrophils % 53 % (35-66) Band Neutrophils % 30 % (0-9) Lymphocytes % 11 % (24-48) Monocytes % 5 % (0-10) Basophils % 1 % (0-3) Platelet Estimate Adequate (ADEQUATE) Polychromasia Slight Sodium Level 133 mmol/L (136-145) Potassium Level 3.7 mmol/L (3.5-5.1) Chloride Level 99 mmol/L (98-107) Carbon Dioxide Level 31 mmol/L (21-32) Anion Gap 3 (6-14) Blood Urea Nitrogen 10 mg/dL (7-20) Creatinine 0.6 mg/dL (0.6-1.0) Estimated GFR (Cockcroft-Gault) 102.7 Glucose Level 123 mg/dL (70-99) Calcium Level 7.7 mg/dL (8.5-10.1) Review of Systems Review of Systems: co nausea co abdominal pain Assessment and Plan Assessmemt and Plan Assessment Pancreatic mass H/o hep c Hepatitis Alcoholism Bilateral Mastectomy Hypokalemia Acute pancreatitis 02/05 Hyperlipidemia COPD Periperal neuropathy Cirrhosis Anxiety Plan ICU monitoring Wound Care PPN Procalamine PO Thiamine Alcohol withdrawal protocol DVT prophylaxis IV Zosyn Home meds PT/OT Hope to advance diet and tolerating clear liquids Full code Await further input from surgery and repeat CT Comment Review of Relevant I have reviewed the following items dante (where applicable) has been applied. Medications: Current Medications Medications (Trade) Dose Ordered Sig/Deandre Route PRN Reason Start Time Stop Time Status Last Admin Dose Admin Thiamine Mononitrate (Vitamin B-1) 100 mg DAILY PO 01/31/19 12:30 02/01/19 08:45 Heparin Sodium (Porcine) (Heparin Sodium) 5,000 unit Q12HR SQ 01/31/19 14:00 02/01/19 08:45 Piperacillin Sod/ Tazobactam Sod 3.375 gm/Sodium Chloride 50 ml @ 100 mls/hr Q6HRS IV 02/01/19 10:00 02/01/19 10:45 Sodium Chloride 35 ml/Fentanyl Citrate 250 mcg/ Ropivacaine 10 ml/ Epidural Dosage Infused (Pha) 50 ml @ 0 mls/hr CONT PRN EPID SEE PROTOCOL TABLE 02/01/19 10:15 02/01/19 11:16 NADIA GREENE III DO Feb 01, 2019 11:58
[2019-02-01 12:19] LABS: BILIRUBIN,URINE SMALL (NEG); CLARITY,URINE CLEAR; COLOR,URINE AMBER; NITRITE,URINE NEGATIVE (NEG); PH,URINE 6.5; PROTEIN,URINE NEGATIVE (NEG-TRACE)
--- NOTE | 2019-02-01 12:20 | RAD ---
Examination: CT ABDOMEN PELVIS WO CONTRAST History: Fever Comparison/Correlation: 01/21/2019 CT abdomen and pelvis without with contrast Findings: Axial images of the abdomen and pelvis were obtained without contrast. Sagittal and coronal reformatted images were provided. Small left pleural effusion is present. Right small right pleural effusion noted. Mild with adjacent atelectasis bilaterally seen greater on the left. Groundglass infiltrate involving the anterior lung bases noted. There is a right and a left drain noted. These extend into the abdomen terminating at the right upper quadrant omentum. G-tube is present. Stomach is distended with fluid. At the gallbladder fossa, there is gas and fluid which appears to be extraluminal. This collection is not well-defined. It appears to measure approximate 4 cm x 2.8 cm in the axial plane. Left intrahepatic biliary gas noted. Gallbladder is not identified. Moderate quantity of stool in the colon is identified. The appendix appears be distended but this is in part relate to submucosal fat. No surrounding stranding. Small amount of pelvic free fluid is present. Nodular contour of the liver compatible with hepatic cirrhosis or other fibrotic process is noted. Spleen is unremarkable. No radiopaque collecting system calculi. Adrenal glands are unremarkable. Distal pancreatic body and tail are unremarkable. Proximal pancreas is normal. On this noncontrast exam for this postoperative patient. Mass described on previous CT exam is not delineated. Correlate with surgical history. Urinary bladder is unremarkable. Uterus is not identified. Facet joint degenerative hypertrophy of the lumbar spine noted. Moderate to severe L5-S1 disc space narrowing is evident. Impression: Gas and fluid collection at the gallbladder fossa. Correlate for possibility of abscess. Catheter drains are noted coursing through the anterior aspect of this collection. Hepatic cirrhosis or other fibrotic process. Bilateral pleural effusions and adjacent bibasilar atelectasis. Pelvic free fluid is present. Stomach is distended with fluid. PQRS Compliance Statement: One or more of the following individualized dose reduction techniques were utilized for this examination: 1. Automated exposure control 2. Adjustment of the mA and/or kV according to patient size 3. Use of iterative reconstruction technique Electronically signed by: Chas Johns MD (02/01/2019 12:17 PM) [facility]
[2019-02-01 12:26] LABS: HYALINE CASTS, URINE OCCASIONAL /HPF; SQUAMOUS EPITHELIAL CELL,UR MOD /LPF
[2019-02-01 12:27] LABS: BACTERIA,URINE 0 /HPF (0-FEW)
[2019-02-01] MEDS: MICAFUNGIN 100 MG in IV DEXTROSE 5% 100ML 100 ML IV SCH (13:21)
[2019-02-01] MEDS ORDERED: fentaNYL PF VIAL 100 MCG/2 ML VIAL IV PRN (14:00)
[2019-02-01] MEDS: fentaNYL PF VIAL 100 MCG/2 ML VIAL IV PRN ×2 (14:40→15:48)
--- NOTE | 2019-02-01 14:58 | RAD ---
Examination: CHEST 2V W/ APICAL LORDOTIC History: Fever and leukocytosis Comparison/Correlation: None Findings: Apical lordotic frontal and lateral views of chest were obtained. Right axillary surgical clips are present. No apical pneumothorax. No suspicious upper lung infiltrate. Subtle nonspecific interstitial thickening of the lung ham noted. Lucency at the left costophrenic angle region which probably represents a skinfold is evident. Minimal costophrenic sulcus opacification which probably represents atelectasis is noted on the lateral view. Impression: Posterior costophrenic sulcus atelectasis is suspected. Electronically signed by: Chas Johns MD (02/01/2019 2:55 PM) [facility]
--- NOTE | 2019-02-01 15:00 | RAD ---
CHEST AP ONLY Clinical Indication: Fever Comparison: Two-view chest x-ray exam with apical Lordotic view dated 02/01/2019. 01/23/2019 CT chest with contrast. Findings: AP frontal view chest was obtained. The cardiomediastinal silhouette is normal. Left medial basilar opacification which probably represents atelectasis is noted. Minimal left pleural effusion may present. There is no pneumothorax. No acute bone abnormality. IMPRESSION: Left basilar atelectasis. Minimal pleural effusion suggested.. Electronically signed by: Chas Johns MD (02/01/2019 2:57 PM) [facility]
[2019-02-01] MEDS ORDERED: KETOROLAC 30 MG/ML VIAL. IV ONE (16:30)
[2019-02-01] MEDS: HYDROmorphone 2 MG/ML VIAL IV PRN ×3 (17:01→22:29)
--- NOTE | 2019-02-01 22:56 | CONS ---
DATE OF CONSULTATION: 02/01/2019 REFERRING PHYSICIAN: Dr. Gupta. REASON FOR CONSULTATION: Fever. HISTORY OF PRESENT ILLNESS: A 58-year-old female with pancreatic cancer, was admitted for elective Whipple's procedure on 01/27/2019. She underwent a Whipple's procedure, specifically pyloric sparing pancreatogastrostomy, hepatojejunostomy, G-tube placement and liver biopsy on 01/27/2019. She has a history of alcohol dependence and is on alcohol withdrawal treatment. The patient is awake, sitting in a Dana chair, states she has abdominal pain, confused, not communicating much, not taking much p.o. intake. She had fever of 102.6 last night, tachycardia, leukocytosis. ID consult has been requested due to fever. Discussed with RN. The patient is not on any pressors, is not on any antibiotics. No Moreno. No nausea or vomiting reported. No diarrhea. The patient has 1 Boroke and 2 J-dra[address] in place. PAST MEDICAL HISTORY: Pancreatic mass, history of hepatitis C, history of hepatitis, history of alcoholism, history of bilateral mastectomy, acute pancreatitis 02/05, status post status post Whipple for pancreatic cancer, peripheral neuropathy, COPD, hyperlipidemia, anxiety. PAST SURGICAL HISTORY: Mastectomy, hysterectomy, Whipple's. FAMILY HISTORY: As per HPI. SOCIAL HISTORY: Smokes 1 pack per day, heavy ETOH use, no drug use. CURRENT ANTIBIOTICS: Antibiotics reviewed in JUL. ALLERGIES: No known drug allergies. REVIEW OF SYSTEMS: Limited, but complains of abdominal pain. PHYSICAL EXAMINATION: VITAL SIGNS: T-max 102.6, pulse 120, respiratory rate 19, blood pressure 119/67, oxygen saturation 93% on room air. GENERAL: Alert, awake female in mild distress from abdominal pain. Cooperative. HEENT: Normocephalic, atraumatic, anicteric. No thrush. Oral mucosa dry. NECK: Supple, no JVD, no tenderness. LUNGS: Clear anteriorly. HEART: S1, S2. No gallops or murmurs. ABDOMEN: Soft, mildly distended. Brooke in place. SEA drains intact with serosanguineous drainage. Bowel sounds present. Midline incision well healed with no purulence, no surrounding redness. Tenderness present. EXTREMITIES: No edema, no cyanosis. PIV looks okay. DERMATOLOGIC: Warm, dry. No generalized rash. GENITOURINARY: No Moreno. CENTRAL NERVOUS SYSTEM: Alert, awake, moves all 4 extremities. LABORATORY DATA: WBC 17.8, hemoglobin 9.9, hematocrit 28.4, platelets 157. Sodium 133, potassium 3.7, chloride 99, bicarbonate 31, BUN 10, creatinine 0.6, glucose 123, calcium 7.7, AST 104, ALT 74, alkaline phosphatase 80, total protein 5.2, albumin 2.1. Micro, none. Urine sample from 01/20/2019, has mixed urogenital adolfo, 52,000 colonies. RADIOLOGY DATA: KUB, no obstruction. IMPRESSION: 1. Fever. 2. Leukocytosis. 3. Status post Whipple's. 4. Alcohol withdrawal. 5. Abdominal pain. 6. History of hepatitis C. 7. History of bilateral mastectomy. 8. Chronic obstructive pulmonary disease. 8. Peripheral neuropathy. 9. Anxiety. RECOMMENDATIONS: 1. Obtain blood cultures, UA, urine culture, chest x-ray. 2. Obtain CT abdomen and pelvis. 3. Start empiric Zyvox, micafungin and Zosyn. 4. Follow up labs and cultures. 5. Continue supportive care. 6. Maintain aspiration precaution. 7. Discussed with RN. Thank you for consulting Infectious Disease to participate in this patient's care. If you have any questions, do not hesitate to contact me. TARA GAXIOLA MD DR: SHILPI/alonzo JOB#: [id number] / [id number]
[2019-02-02] VITALS (24 sets, daily range): BP systolic 88–123; BP diastolic 57–73
[2019-02-02] MEDS: HYDROmorphone 2 MG/ML VIAL IV PRN ×3 (02:31→07:46)
[2019-02-02] MEDS: fentaNYL PF VIAL 100 MCG/2 ML VIAL IV PRN ×2 (04:15→09:09)
[2019-02-02 04:53] LABS: BASO # 0.2 x10^3/uL (0.0-0.2); BASO % 1 % (0-3); EOS % 0 % (0-3); HEMATOCRIT 29.1 % (36.0-47.0); HEMOGLOBIN 10.2 g/dL (12.0-15.5); LYMPH # 2.2 x10^3/uL (1.0-4.8); LYMPH % 8 % (24-48); MEAN CORPUSCULAR HEMOGLOBIN 34 pg (25-35); MEAN CORPUSCULAR HGB CONC 35 g/dL (31-37); MEAN CORPUSCULAR VOLUME 96 fL (79-100); MONO # 3.6 x10^3/uL (0.0-1.1); MONO % 12 % (0-9); NEUT # 23.6 x10^3/uL (1.8-7.7); NEUT % 80 % (31-73); PLATELET COUNT 281 x10^3/uL (140-400); RED BLOOD COUNT 3.04 x10^6/uL (3.50-5.40); RED CELL DISTRIBUTION WIDTH 13.1 % (11.5-14.5); WHITE BLOOD COUNT 29.6 x10^3/uL (4.0-11.0)
[2019-02-02 05:13] LABS: CALCIUM 8.1 mg/dL (8.5-10.1); CREATININE 0.7 mg/dL (0.6-1.0); GFR 85.9
[2019-02-02] MEDS ORDERED: IV NORMAL SALINE 500ML BAG 500 ML IV ONE (05:30)
[2019-02-02] MEDS: PIPERACILLIN/TAZOBACTAM 3.375 GM in IV NORMAL SALINE 50ML 50 ML IV SCH ×3 (05:56→18:20)
--- NOTE | 2019-02-02 07:46 | PDOC ---
Infectious Disease Note Subjective Subjective Some sweats and chills but not as bad. Some nausea but no vomiting. No BM/SOA/cough/rash/PATRICK Passing urine ok ROS ROS o/w neg Vital Sign Vital Signs Vital Signs Date Time Temp Pulse Resp B/P (MAP) Pulse Ox O2 Delivery O2 Flow Rate FiO2 02/02/19 06:00 119 12 110/63 (79) 96 Room Air 02/02/19 05:37 97.0 02/02/19 04:02 99.9 99.9 Physical Exam PHYSICAL EXAM GENERAL: Alert, awake female some discomfort from abdominal pain. Cooperative. HEENT: Normocephalic, atraumatic, anicteric. No thrush. Oral mucosa dry. NECK: Supple, no JVD, no tenderness. LUNGS: Clear anteriorly. HEART: S1, S2. No gallops or murmurs. ABDOMEN: Soft, mildly distended. Whitethorn in place. SEA drains intact with serosanguineous drainage. Decreased Bowel sounds present.Wound is dressed Tenderness present. EXTREMITIES: No edema, no cyanosis. PIV looks okay. DERMATOLOGIC: Warm, dry. No generalized rash. GENITOURINARY: No Moreno. CENTRAL NERVOUS SYSTEM: Alert, awake, moves all 4 extremities. Coop Labs Lab Laboratory Tests Test 02/01/19 10:53 02/01/19 11:45 02/02/19 04:30 Lactic Acid Level 1.5 mmol/L (0.4-2.0) Urine Collection Type Unknown Urine Color Evelyn Urine Clarity Clear Urine pH 6.5 Urine Specific [place] 1.025 Urine Protein Negative mg/dL (NEG-TRACE) Urine Glucose (UA) Negative mg/dL (NEG) Urine Ketones (Stick) Trace mg/dL (NEG) Urine Blood Negative (NEG) Urine Nitrite Negative (NEG) Urine Bilirubin Small (NEG) Urine Urobilinogen Dipstick 1.0 mg/dL (0.2 mg/dL) Urine Leukocyte Esterase Small (NEG) Urine RBC 1-2 /HPF (0-2) Urine WBC 5-10 /HPF (0-4) Urine Squamous Epithelial Cells Mod /LPF Urine Transitional Epithelial Cells Few /LPF Urine Bacteria 0 /HPF (0-FEW) Urine Hyaline Casts Occasional /HPF Urine Mucus Marked /LPF White Blood Count 29.6 x10^3/uL (4.0-11.0) Red Blood Count 3.04 x10^6/uL (3.50-5.40) Hemoglobin 10.2 g/dL (12.0-15.5) Hematocrit 29.1 % (36.0-47.0) Mean Corpuscular Volume 96 fL (79-100) Mean Corpuscular Hemoglobin 34 pg (25-35) Mean Corpuscular Hemoglobin Concent 35 g/dL (31-37) Red Cell Distribution Width 13.1 % (11.5-14.5) Platelet Count 281 x10^3/uL (140-400) Neutrophils (%) (Auto) 80 % (31-73) Lymphocytes (%) (Auto) 8 % (24-48) Monocytes (%) (Auto) 12 % (0-9) Eosinophils (%) (Auto) 0 % (0-3) Basophils (%) (Auto) 1 % (0-3) Neutrophils # (Auto) 23.6 x10^3/uL (1.8-7.7) Lymphocytes # (Auto) 2.2 x10^3/uL (1.0-4.8) Monocytes # (Auto) 3.6 x10^3/uL (0.0-1.1) Eosinophils # (Auto) 0.0 x10^3/uL (0.0-0.7) Basophils # (Auto) 0.2 x10^3/uL (0.0-0.2) Sodium Level 129 mmol/L (136-145) Potassium Level 4.0 mmol/L (3.5-5.1) Chloride Level 96 mmol/L (98-107) Carbon Dioxide Level 28 mmol/L (21-32) Anion Gap 5 (6-14) Blood Urea Nitrogen 16 mg/dL (7-20) Creatinine 0.7 mg/dL (0.6-1.0) Estimated GFR (Cockcroft-Gault) 85.9 Glucose Level 121 mg/dL (70-99) Calcium Level 8.1 mg/dL (8.5-10.1) Micro Impression: Gas and fluid collection at the gallbladder fossa. Correlate for possibility of abscess. Catheter drains are noted coursing through the anterior aspect of this collection. Hepatic cirrhosis or other fibrotic process. Bilateral pleural effusions and adjacent bibasilar atelectasis. Pelvic free fluid is present. Stomach is distended with fluid. Objective Assessment 1. Fever - curve is better - UA - clean. 2. Leukocytosis. worse- lactic nml. ? Ileus 3. Status post Whipple's CT as above - epidural out 4. Alcohol withdrawal. 5. Abdominal pain. 6. History of hepatitis C. 7. History of bilateral mastectomy. 8. Chronic obstructive pulmonary disease. 8. Peripheral neuropathy. 9. Anxiety. Plan Plan of Care Cont Zosyn, Zyvvox, Micafungin 02/01 as fever curve is improving - Await surgical F/u and eval of CT Electrolyte abnormalities per primary f/u bc and urine c/s f/u labs in am and cults maintain aspiration precautions D/w nursing SCOTT REYEZ MD Feb 02, 2019 07:46
[2019-02-02] MEDS: BUDESONIDE 0.5 MG/2 ML NEBU. NEB SCH ×2 (08:39→20:07)
[2019-02-02] MEDS: IPRATRPIUM/ALBUTEROL 0.5/2.5MG 3 ML NEBU. NEB SCH ×4 (08:39→20:07)
[2019-02-02] MEDS ORDERED: HYDROmorphone 12mg/30ml PCA 30 ML IV PRN (09:00)
[2019-02-02] MEDS: PANTOPRAZOLE 40 MG TABLET.DR. PO SCH (09:17)
[2019-02-02] MEDS: THIAMINE 100 MG TABLET. PO SCH (09:17)
[2019-02-02] MEDS: FAMOTIDINE 20 MG/2 ML VIAL IVP SCH ×2 (09:17→21:00)
[2019-02-02] MEDS: HEPARIN for SUB-Q USE 5,000 UNIT/ML VIAL. SQ SCH ×2 (09:18→21:52)
[2019-02-02] MEDS: METOPROLOL TART IMMED RELEASE 25 MG TABLET. PO SCH ×2 (09:18→21:50)
--- NOTE | 2019-02-02 09:55 | PDOC ---
PEDRITO TAPIA INSPECTOR METAL CAN 02/02/19 0955: SURGICAL PROGRESS NOTE Subjective pain , significant wbc up to [address] Levin--IR eval, nothing drainable Vital Signs Vital Signs Date Time Temp Pulse Resp B/P (MAP) Pulse Ox O2 Delivery O2 Flow Rate FiO2 02/02/19 09:21 124 116/67 02/02/19 09:09 14 94 Room Air 02/02/19 05:37 97.0 02/02/19 04:02 99.9 99.9 I&O l Intake and Output 02/02/19 06:59 Intake Total 2667 ml Output Total 2565 ml Balance 102 ml Intake Oral 60 ml IV Total 2607 ml Output Urine Total 1050 ml Gastric Drainage Total 400 ml Emesis 100 ml Drainage Total 1015 ml General: Cooperative, No acute distress Abdomen: Soft, Other (drains serous, dressing dry) Labs Laboratory Tests Test 02/01/19 04:30 02/01/19 10:53 02/01/19 11:45 02/02/19 04:30 White Blood Count 17.8 x10^3/uL (4.0-11.0) 29.6 x10^3/uL (4.0-11.0) Red Blood Count 2.92 x10^6/uL (3.50-5.40) 3.04 x10^6/uL (3.50-5.40) Hemoglobin 9.9 g/dL (12.0-15.5) 10.2 g/dL (12.0-15.5) Hematocrit 28.4 % (36.0-47.0) 29.1 % (36.0-47.0) Mean Corpuscular Volume 97 fL (79-100) 96 fL (79-100) Mean Corpuscular Hemoglobin 34 pg (25-35) 34 pg (25-35) Mean Corpuscular Hemoglobin Concent 35 g/dL (31-37) 35 g/dL (31-37) Red Cell Distribution Width 12.7 % (11.5-14.5) 13.1 % (11.5-14.5) Platelet Count 157 x10^3/uL (140-400) 281 x10^3/uL (140-400) Neutrophils (%) (Auto) 81 % (31-73) 80 % (31-73) Lymphocytes (%) (Auto) 10 % (24-48) 8 % (24-48) Monocytes (%) (Auto) 9 % (0-9) 12 % (0-9) Eosinophils (%) (Auto) 0 % (0-3) 0 % (0-3) Basophils (%) (Auto) 0 % (0-3) 1 % (0-3) Neutrophils # (Auto) 14.4 x10^3/uL (1.8-7.7) 23.6 x10^3/uL (1.8-7.7) Lymphocytes # (Auto) 1.7 x10^3/uL (1.0-4.8) 2.2 x10^3/uL (1.0-4.8) Monocytes # (Auto) 1.6 x10^3/uL (0.0-1.1) 3.6 x10^3/uL (0.0-1.1) Eosinophils # (Auto) 0.0 x10^3/uL (0.0-0.7) 0.0 x10^3/uL (0.0-0.7) Basophils # (Auto) 0.0 x10^3/uL (0.0-0.2) 0.2 x10^3/uL (0.0-0.2) Segmented Neutrophils % 53 % (35-66) Band Neutrophils % 30 % (0-9) Lymphocytes % 11 % (24-48) Monocytes % 5 % (0-10) Basophils % 1 % (0-3) Platelet Estimate Adequate (ADEQUATE) Polychromasia Slight Sodium Level 133 mmol/L (136-145) 129 mmol/L (136-145) Potassium Level 3.7 mmol/L (3.5-5.1) 4.0 mmol/L (3.5-5.1) Chloride Level 99 mmol/L (98-107) 96 mmol/L (98-107) Carbon Dioxide Level 31 mmol/L (21-32) 28 mmol/L (21-32) Anion Gap 3 (6-14) 5 (6-14) Blood Urea Nitrogen 10 mg/dL (7-20) 16 mg/dL (7-20) Creatinine 0.6 mg/dL (0.6-1.0) 0.7 mg/dL (0.6-1.0) Estimated GFR (Cockcroft-Gault) 102.7 85.9 Glucose Level 123 mg/dL (70-99) 121 mg/dL (70-99) Calcium Level 7.7 mg/dL (8.5-10.1) 8.1 mg/dL (8.5-10.1) Lactic Acid Level 1.5 mmol/L (0.4-2.0) Urine Collection Type Unknown Urine Color Evelyn Urine Clarity Clear Urine pH 6.5 Urine Specific [place] 1.025 Urine Protein Negative mg/dL (NEG-TRACE) Urine Glucose (UA) Negative mg/dL (NEG) Urine Ketones (Stick) Trace mg/dL (NEG) Urine Blood Negative (NEG) Urine Nitrite Negative (NEG) Urine Bilirubin Small (NEG) Urine Urobilinogen Dipstick 1.0 mg/dL (0.2 mg/dL) Urine Leukocyte Esterase Small (NEG) Urine RBC 1-2 /HPF (0-2) Urine WBC 5-10 /HPF (0-4) Urine Squamous Epithelial Cells Mod /LPF Urine Transitional Epithelial Cells Few /LPF Urine Bacteria 0 /HPF (0-FEW) Urine Hyaline Casts Occasional /HPF Urine Mucus Marked /LPF Laboratory Tests Test 02/01/19 10:53 02/01/19 11:45 02/02/19 04:30 Lactic Acid Level 1.5 mmol/L (0.4-2.0) Urine Collection Type Unknown Urine Color Evelyn Urine Clarity Clear Urine pH 6.5 Urine Specific [place] 1.025 Urine Protein Negative mg/dL (NEG-TRACE) Urine Glucose (UA) Negative mg/dL (NEG) Urine Ketones (Stick) Trace mg/dL (NEG) Urine Blood Negative (NEG) Urine Nitrite Negative (NEG) Urine Bilirubin Small (NEG) Urine Urobilinogen Dipstick 1.0 mg/dL (0.2 mg/dL) Urine Leukocyte Esterase Small (NEG) Urine RBC 1-2 /HPF (0-2) Urine WBC 5-10 /HPF (0-4) Urine Squamous Epithelial Cells Mod /LPF Urine Transitional Epithelial Cells Few /LPF Urine Bacteria 0 /HPF (0-FEW) Urine Hyaline Casts Occasional /HPF Urine Mucus Marked /LPF White Blood Count 29.6 x10^3/uL (4.0-11.0) Red Blood Count 3.04 x10^6/uL (3.50-5.40) Hemoglobin 10.2 g/dL (12.0-15.5) Hematocrit 29.1 % (36.0-47.0) Mean Corpuscular Volume 96 fL (79-100) Mean Corpuscular Hemoglobin 34 pg (25-35) Mean Corpuscular Hemoglobin Concent 35 g/dL (31-37) Red Cell Distribution Width 13.1 % (11.5-14.5) Platelet Count 281 x10^3/uL (140-400) Neutrophils (%) (Auto) 80 % (31-73) Lymphocytes (%) (Auto) 8 % (24-48) Monocytes (%) (Auto) 12 % (0-9) Eosinophils (%) (Auto) 0 % (0-3) Basophils (%) (Auto) 1 % (0-3) Neutrophils # (Auto) 23.6 x10^3/uL (1.8-7.7) Lymphocytes # (Auto) 2.2 x10^3/uL (1.0-4.8) Monocytes # (Auto) 3.6 x10^3/uL (0.0-1.1) Eosinophils # (Auto) 0.0 x10^3/uL (0.0-0.7) Basophils # (Auto) 0.2 x10^3/uL (0.0-0.2) Sodium Level 129 mmol/L (136-145) Potassium Level 4.0 mmol/L (3.5-5.1) Chloride Level 96 mmol/L (98-107) Carbon Dioxide Level 28 mmol/L (21-32) Anion Gap 5 (6-14) Blood Urea Nitrogen 16 mg/dL (7-20) Creatinine 0.7 mg/dL (0.6-1.0) Estimated GFR (Cockcroft-Gault) 85.9 Glucose Level 121 mg/dL (70-99) Calcium Level 8.1 mg/dL (8.5-10.1) Problem List will review with Dr Levin will order central line placement , tpn HÉCTOR LEVIN MD 02/02/19 1236: SURGICAL PROGRESS NOTE Assessment/Plan Pt pain control improved after starting ENTERPRISE INTEGRATION ARCHITECT. Anxiety remains a concern, complicated by withdrawal CT reviewed with IR, no drainable abscess or other significant pathology Pt awake and alert, but gets sleepy quickly no jaundice abd soft, incision intact, SEA serous, G-tube with gastric drainage Reviewed labs, no obvious source of infection, appreciate ID and abx. Favor may be stress response Will check lipase from drains. Replace phos, given liver disease Suspect component of SIADH (hyponatremia, low Cr), will give lasix and restart clears pending ctl placement. d/w pt and pt's family. PEDRITO TAPIA APRN Feb 02, 2019 09:55 HÉCTOR LEVIN MD Feb 02, 2019 12:36
[2019-02-02 10:47] LABS: PROTHROMBIN TIME PATIENT 16.3 SEC (11.7-14.0)
[2019-02-02] MEDS ORDERED: SODIUM PHOSPHATE 20 MMOL in IV DEXTROSE 5% 250 ML IV ONE (11:00)
[2019-02-02] MEDS: TPN PER PHARMACY MC PRN ×2 (13:25→14:11)
[2019-02-02] MEDS: MICAFUNGIN 100 MG in IV DEXTROSE 5% 100ML 100 ML IV SCH (13:38)
--- NOTE | 2019-02-02 13:43 | PDOC ---
[facility] PROGRESS NOTE Chief Complaint Chief Complaint Pancreatic mass H/o hep c Hepatitis Alcoholism Bilateral Mastectomy Hypokalemia Acute pancreatitis 02/05 Hyperlipidemia COPD Periperal neuropathy Cirrhosis Anxiety History of Present Illness History of Present Illness 02/02/19 Pt seen and examined in ICU Consulted Dr. Levin by phone in pt's room, confirmed central line can be placed despite previous mastectomy. 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 LANG RN and daughter and grandson 02/01/19 Pt seen/examined in the ICU Pt is awake, but weak with nausea and pain Chart Reviewed DW RN and family 01/31/19 Pt seen and examined in the ICU Pt is awake/talking and able to tolerate PO meds LANG RN Chart Reviewed [id number] Patient seen and examined in the ICU Patient's daughter still present in his good support for her (Griselda) Discussed with RN Chart reviewed 01/29/19 Pt seen and examined in ICU at bedside s/p Whipple SEA drain at RLQ intact Pt sleeping upon entry and with daughter today- appears in NAD Daughter says pt is alcoholic; she also says pt did not sleep well last night LANG RN Vitals/I&O Vitals/I&O: Vital Signs Date Time Temp Pulse Resp B/P (MAP) Pulse Ox O2 Delivery O2 Flow Rate FiO2 02/02/19 12:00 98.4 109 8 92/57 (69) 95 Room Air 98.4 02/02/19 05:37 97.0 I & O 02/01/19 02/01/19 02/02/19 15:00 23:00 07:00 Intake Total 30 ml 1075 ml 1532 ml Output Total 385 ml 1000 ml 980 ml Balance -355 ml 75 ml 552 ml Physical Exam Physical Exam: GENERAL: Alert, awake female some discomfort from abdominal pain. Cooperative. HEENT: Normocephalic, atraumatic, anicteric. No thrush. Oral mucosa dry. NECK: Supple, no JVD, no tenderness. LUNGS: Clear anteriorly. HEART: S1, S2. No gallops or murmurs. ABDOMEN: Soft, mildly distended. [place] in place. SEA drains intact with serosanguineous drainage. Decreased Bowel sounds present.Wound is dressed Tenderness present. EXTREMITIES: No edema, no cyanosis. PIV looks okay. DERMATOLOGIC: Warm, dry. No generalized rash. GENITOURINARY: No [place]. CENTRAL NERVOUS SYSTEM: Alert, awake, moves all 4 extremities. Coop General: Cooperative, No acute distress Heart: Regular rate, Normal S1 Lungs: Clear Abdomen: Soft, Other (drains serous, dressing dry) Extremities: No clubbing, No cyanosis, No tenderness/swelling Skin: No rashes, No breakdown Labs Labs: Laboratory Tests Test 02/02/19 04:30 White Blood Count 29.6 x10^3/uL (4.0-11.0) Red Blood Count 3.04 x10^6/uL (3.50-5.40) Hemoglobin 10.2 g/dL (12.0-15.5) Hematocrit 29.1 % (36.0-47.0) Mean Corpuscular Volume 96 fL (79-100) Mean Corpuscular Hemoglobin 34 pg (25-35) Mean Corpuscular Hemoglobin Concent 35 g/dL (31-37) Red Cell Distribution Width 13.1 % (11.5-14.5) Platelet Count 281 x10^3/uL (140-400) Neutrophils (%) (Auto) 80 % (31-73) Lymphocytes (%) (Auto) 8 % (24-48) Monocytes (%) (Auto) 12 % (0-9) Eosinophils (%) (Auto) 0 % (0-3) Basophils (%) (Auto) 1 % (0-3) Neutrophils # (Auto) 23.6 x10^3/uL (1.8-7.7) Lymphocytes # (Auto) 2.2 x10^3/uL (1.0-4.8) Monocytes # (Auto) 3.6 x10^3/uL (0.0-1.1) Eosinophils # (Auto) 0.0 x10^3/uL (0.0-0.7) Basophils # (Auto) 0.2 x10^3/uL (0.0-0.2) Prothrombin Time 16.3 SEC (11.7-14.0) Prothromb Time International Ratio 1.3 (0.8-1.1) Sodium Level 129 mmol/L (136-145) Potassium Level 4.0 mmol/L (3.5-5.1) Chloride Level 96 mmol/L (98-107) Carbon Dioxide Level 28 mmol/L (21-32) Anion Gap 5 (6-14) Blood Urea Nitrogen 16 mg/dL (7-20) Creatinine 0.7 mg/dL (0.6-1.0) Estimated GFR (Cockcroft-Gault) 85.9 Glucose Level 121 mg/dL (70-99) Calcium Level 8.1 mg/dL (8.5-10.1) Phosphorus Level 2.1 mg/dL (2.6-4.7) Lipase 23 U/L (73-393) Review of Systems Review of Systems: co pain co weakness Assessment and Plan Assessmemt and Plan Assessment Pancreatic mass H/o hep c Hepatitis Alcoholism Bilateral Mastectomy Hypokalemia Acute pancreatitis 02/05 Hyperlipidemia COPD Periperal neuropathy Cirrhosis Anxiety Plan Consulted IR for central line ICU monitoring Dilaudid 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 Medications: Current Medications Medications (Trade) Dose Ordered Sig/Deandre Route PRN Reason Start Time Stop Time Status Last Admin Dose Admin Fentanyl Citrate (Fentanyl 2ml Vial) 50 mcg PRN Q5MIN PRN IV MODERATE TO SEVERE PAIN 02/01/19 14:00 02/02/19 13:59 02/02/19 09:09 Hydromorphone HCl (Dilaudid) 1 mg PRN Q2HR PRN IV PAIN 02/01/19 16:30 02/02/19 07:46 Ketorolac Tromethamine (Toradol 30mg Vial) 30 mg 1X ONCE IV 02/01/19 16:30 02/01/19 16:31 DC 02/01/19 16:43 Sodium Chloride 500 ml @ 500 mls/hr 1X ONCE IV 02/02/19 05:30 02/02/19 06:29 DC 02/02/19 05:37 Hydromorphone HCl 30 ml @ 0 mls/hr CONT PRN PRN IV PER PROTOCOL 02/02/19 09:00 02/02/19 10:32 Info (Tpn Per Pharmacy) 1 each PRN DAILY PRN MC SEE COMMENTS 02/02/19 10:00 02/02/19 13:25 NADIA GREENE III DO Feb 02, 2019 13:43
[2019-02-02] MEDS ORDERED: LIDOCAINE WITH 8.4% SOD BICARB 3 ML DISP.SYRIN. INJ ONE (14:00)
--- NOTE | 2019-02-02 15:21 | RAD ---
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 Informed consent was obtained. A timeout procedure was performed. All elements of maximal sterile barrier technique including the use of a cap, mask, sterile gown, sterile gloves, large sterile sheet, appropriate hand hygiene, and 2% chlorhexidine for cutaneous antisepsis (or acceptable alternative antiseptic per current guidelines) were followed for this procedure. The patient was prepped and draped in the usual sterile fashion. Ultrasound interrogation of the right neck revealed patency and compressibility of the right internal jugular vein. A 21-gauge micropuncture was then used to gain access to this vein under ultrasound guidance. A hard copy ultrasound image was recorded. A guidewire was advanced centrally. 5 Maltese sheath was placed. Over a wire following dilatation, a triple-lumen central venous catheter was advanced centrally. Catheter was found to flush and aspirate normally. Follow-up chest radiograph demonstrates tip at the cavoatrial junction. Catheter secured in place and a sterile dressing was applied. No immediate complications were identified. Impression: Successful ultrasound-guided placement of right internal jugular triple-lumen central venous catheter
[2019-02-02] MEDS ORDERED: FUROSEMIDE 20 MG/2 ML VIAL. IVP ONE (16:00)
--- NOTE | 2019-02-02 16:25 | RAD ---
CHEST AP ONLY History: Line placement Comparison: February 01, 2019 Findings: Single view of the chest is submitted. There is now a right internal jugular venous catheter with the tip in the region of the right atrium. No convincing pneumothorax is identified, some external line apparatus projecting in the right apical region. Cardiac silhouette is stable. There is similar mild bibasilar airspace opacity. Impression: 1. There is now a right internal jugular venous catheter with tip in the region of right atrium, no convincing pneumothorax. 2. There is again bibasilar airspace opacity. Electronically signed by: Pilo Bello MD (02/02/2019 4:22 PM) [id number]
[2019-02-02] MEDS: HALOPERIDOL LACTATE 5 MG/ML VIAL. IVP PRN (17:32)
[2019-02-02] MEDS: AMINO AC 3%/ELECTROLYTE/GLYCER 1,000 ML IV SCH ×2 (18:20→19:30)
[2019-02-02] MEDS ORDERED: DEXTROSE 70% IV SCH ×10 (22:00)
[2019-02-02] MEDS ORDERED: AMINO ACID IV SCH ×10 (22:00)
[2019-02-02] MEDS ORDERED: TOTAL PARENTERAL NUTRITION IV SCH ×10 (22:00)
[2019-02-02] MEDS ORDERED: [UNRECOGNIZED DRUG - OTHER] IV SCH ×10 (22:00)
[2019-02-03] VITALS (23 sets, daily range): BP systolic 107–153; BP diastolic 60–74
[2019-02-03] MEDS: PIPERACILLIN/TAZOBACTAM 3.375 GM in IV NORMAL SALINE 50ML 50 ML IV SCH ×4 (00:05→19:40)
[2019-02-03 05:56] LABS: BASO # 0.1 x10^3/uL (0.0-0.2); BASO % 0 % (0-3); EOS % 0 % (0-3); HEMATOCRIT 27.7 % (36.0-47.0); HEMOGLOBIN 9.6 g/dL (12.0-15.5); LYMPH # 2.1 x10^3/uL (1.0-4.8); LYMPH % 8 % (24-48); MEAN CORPUSCULAR HEMOGLOBIN 33 pg (25-35); MEAN CORPUSCULAR HGB CONC 35 g/dL (31-37); MEAN CORPUSCULAR VOLUME 97 fL (79-100); MONO # 2.8 x10^3/uL (0.0-1.1); MONO % 11 % (0-9); NEUT # 19.9 x10^3/uL (1.8-7.7); NEUT % 80 % (31-73); PLATELET COUNT 269 x10^3/uL (140-400); RED BLOOD COUNT 2.86 x10^6/uL (3.50-5.40); WHITE BLOOD COUNT 24.9 x10^3/uL (4.0-11.0)
[2019-02-03 06:13] LABS: ALBUMIN 1.3 g/dL (3.4-5.0); ALBUMIN/GLOBULIN RATIO 0.4 (1.0-1.7); CALCIUM 7.5 mg/dL (8.5-10.1); CREATININE 0.6 mg/dL (0.6-1.0); GFR 102.7; MAGNESIUM 1.8 mg/dL (1.8-2.4); POTASSIUM 3.3 mmol/L (3.5-5.1); TOTAL BILIRUBIN 0.5 mg/dL (0.2-1.0); TOTAL PROTEIN 4.7 g/dL (6.4-8.2)
--- NOTE | 2019-02-03 07:18 | PDOC ---
Infectious Disease Note Subjective Subjective Seems more confused this am Asking to be "knocked out" YOHANA MULLER unable to obtain Vital Sign Vital Signs Vital Signs Date Time Temp Pulse Resp B/P (MAP) Pulse Ox O2 Delivery O2 Flow Rate FiO2 02/03/19 06:00 114 11 107/66 (80) 100 Room Air 02/03/19 04:00 99.0 99.0 02/02/19 20:08 2.0 Physical Exam PHYSICAL EXAM GENERAL: Awakensbut min coop HEENT: Normocephalic, atraumatic, anicteric. No thrush. Oral mucosa dry. NECK: Supple, no JVD, no tenderness. LUNGS: Clear anteriorly. HEART: S1, S2. No gallops or murmurs. ABDOMEN: Soft, mildly distended. [place] in place. SEA drains intact with serosanguineous drainage. Decreased Bowel sounds present.Wound is dressed Tenderness present. EXTREMITIES: No edema, no cyanosis. PIV looks okay. DERMATOLOGIC: Warm, dry. No generalized rash. GENITOURINARY: No Moreno. CENTRAL NERVOUS SYSTEM: Alert, awake, moves all 4 extremities. Coop Labs Lab Laboratory Tests Test 02/03/19 05:35 White Blood Count 24.9 x10^3/uL (4.0-11.0) Red Blood Count 2.86 x10^6/uL (3.50-5.40) Hemoglobin 9.6 g/dL (12.0-15.5) Hematocrit 27.7 % (36.0-47.0) Mean Corpuscular Volume 97 fL (79-100) Mean Corpuscular Hemoglobin 33 pg (25-35) Mean Corpuscular Hemoglobin Concent 35 g/dL (31-37) Red Cell Distribution Width 13.0 % (11.5-14.5) Platelet Count 269 x10^3/uL (140-400) Neutrophils (%) (Auto) 80 % (31-73) Lymphocytes (%) (Auto) 8 % (24-48) Monocytes (%) (Auto) 11 % (0-9) Eosinophils (%) (Auto) 0 % (0-3) Basophils (%) (Auto) 0 % (0-3) Neutrophils # (Auto) 19.9 x10^3/uL (1.8-7.7) Lymphocytes # (Auto) 2.1 x10^3/uL (1.0-4.8) Monocytes # (Auto) 2.8 x10^3/uL (0.0-1.1) Eosinophils # (Auto) 0.0 x10^3/uL (0.0-0.7) Basophils # (Auto) 0.1 x10^3/uL (0.0-0.2) Sodium Level 128 mmol/L (136-145) Potassium Level 3.3 mmol/L (3.5-5.1) Chloride Level 94 mmol/L (98-107) Carbon Dioxide Level 29 mmol/L (21-32) Anion Gap 5 (6-14) Blood Urea Nitrogen 14 mg/dL (7-20) Creatinine 0.6 mg/dL (0.6-1.0) Estimated GFR (Cockcroft-Gault) 102.7 BUN/Creatinine Ratio 23 (6-20) Glucose Level 194 mg/dL (70-99) Calcium Level 7.5 mg/dL (8.5-10.1) Phosphorus Level 2.0 mg/dL (2.6-4.7) Magnesium Level 1.8 mg/dL (1.8-2.4) Total Bilirubin 0.5 mg/dL (0.2-1.0) Aspartate Amino Transf (AST/SGOT) 30 U/L (15-37) Alanine Aminotransferase (ALT/SGPT) 28 U/L (14-59) Alkaline Phosphatase 91 U/L (46-116) Total Protein 4.7 g/dL (6.4-8.2) Albumin 1.3 g/dL (3.4-5.0) Albumin/Globulin Ratio 0.4 (1.0-1.7) Micro Impression: Gas and fluid collection at the gallbladder fossa. Correlate for possibility of abscess. Catheter drains are noted coursing through the anterior aspect of this collection. Hepatic cirrhosis or other fibrotic process. Bilateral pleural effusions and adjacent bibasilar atelectasis. Pelvic free fluid is present. Stomach is distended with fluid. Objective Assessment 1. Fever - curve is better - UA - clean. 2. Leukocytosis. improved. lactic nml. ? Ileus 3. Status post Whipple's 01/27 - CT as above - epidural out but on VICE PRESIDENT EDUCATION 4. Alcohol withdrawal. 5. Abdominal pain. 6. History of hepatitis C. 7. History of bilateral mastectomy. 8. Chronic obstructive pulmonary disease. 8. Peripheral neuropathy. 9. Anxiety. Plan Plan of Care Cont Zosyn, Zyvvox, Micafungin 02/01 as fever curve/WBC is improving Electrolyte abnormalities per primary f/u bc and urine c/s f/u labs in am and cults maintain aspiration precautions D/w nursing SCOTT REYEZ MD Feb 03, 2019 07:18
[2019-02-03] MEDS: IPRATRPIUM/ALBUTEROL 0.5/2.5MG 3 ML NEBU. NEB SCH ×4 (08:34→19:09)
[2019-02-03] MEDS: BUDESONIDE 0.5 MG/2 ML NEBU. NEB SCH ×2 (08:34→19:09)
[2019-02-03] MEDS: PANTOPRAZOLE 40 MG TABLET.DR. PO SCH (09:14)
[2019-02-03] MEDS: FAMOTIDINE 20 MG/2 ML VIAL IVP SCH ×2 (09:14→21:21)
[2019-02-03] MEDS: METOPROLOL TART IMMED RELEASE 25 MG TABLET. PO SCH ×2 (09:15→21:00)
[2019-02-03] MEDS: THIAMINE 100 MG TABLET. PO SCH (09:15)
--- NOTE | 2019-02-03 09:38 | PDOC ---
SURGICAL PROGRESS NOTE Subjective pain still not well controlled taking few clears up in chair this AM Vital Signs Vital Signs Date Time Temp Pulse Resp B/P (MAP) Pulse Ox O2 Delivery O2 Flow Rate FiO2 02/03/19 09:15 132 110/68 02/03/19 08:42 98 Nasal Cannula 2.0 02/03/19 06:00 11 02/03/19 04:00 99.0 99.0 I&O Intake and Output 02/03/19 06:59 Intake Total 2197.5 ml Output Total 1725 ml Balance 472.5 ml IV Total 2197.5 ml Output Urine Total 275 ml Gastric Drainage Total 500 ml Drainage Total 950 ml General: Alert, Cooperative, Other (noted in pain) Abdomen: Soft, Other (g tube to LIS, drains serous) Labs Laboratory Tests Test 02/01/19 10:53 02/01/19 11:45 02/02/19 04:30 02/03/19 05:35 Lactic Acid Level 1.5 mmol/L (0.4-2.0) Urine Collection Type Unknown Urine Color Evelyn Urine Clarity Clear Urine pH 6.5 Urine Specific [place] 1.025 Urine Protein Negative mg/dL (NEG-TRACE) Urine Glucose (UA) Negative mg/dL (NEG) Urine Ketones (Stick) Trace mg/dL (NEG) Urine Blood Negative (NEG) Urine Nitrite Negative (NEG) Urine Bilirubin Small (NEG) Urine Urobilinogen Dipstick 1.0 mg/dL (0.2 mg/dL) Urine Leukocyte Esterase Small (NEG) Urine RBC 1-2 /HPF (0-2) Urine WBC 5-10 /HPF (0-4) Urine Squamous Epithelial Cells Mod /LPF Urine Transitional Epithelial Cells Few /LPF Urine Bacteria 0 /HPF (0-FEW) Urine Hyaline Casts Occasional /HPF Urine Mucus Marked /LPF White Blood Count 29.6 x10^3/uL (4.0-11.0) 24.9 x10^3/uL (4.0-11.0) Red Blood Count 3.04 x10^6/uL (3.50-5.40) 2.86 x10^6/uL (3.50-5.40) Hemoglobin 10.2 g/dL (12.0-15.5) 9.6 g/dL (12.0-15.5) Hematocrit 29.1 % (36.0-47.0) 27.7 % (36.0-47.0) Mean Corpuscular Volume 96 fL (79-100) 97 fL (79-100) Mean Corpuscular Hemoglobin 34 pg (25-35) 33 pg (25-35) Mean Corpuscular Hemoglobin Concent 35 g/dL (31-37) 35 g/dL (31-37) Red Cell Distribution Width 13.1 % (11.5-14.5) 13.0 % (11.5-14.5) Platelet Count 281 x10^3/uL (140-400) 269 x10^3/uL (140-400) Neutrophils (%) (Auto) 80 % (31-73) 80 % (31-73) Lymphocytes (%) (Auto) 8 % (24-48) 8 % (24-48) Monocytes (%) (Auto) 12 % (0-9) 11 % (0-9) Eosinophils (%) (Auto) 0 % (0-3) 0 % (0-3) Basophils (%) (Auto) 1 % (0-3) 0 % (0-3) Neutrophils # (Auto) 23.6 x10^3/uL (1.8-7.7) 19.9 x10^3/uL (1.8-7.7) Lymphocytes # (Auto) 2.2 x10^3/uL (1.0-4.8) 2.1 x10^3/uL (1.0-4.8) Monocytes # (Auto) 3.6 x10^3/uL (0.0-1.1) 2.8 x10^3/uL (0.0-1.1) Eosinophils # (Auto) 0.0 x10^3/uL (0.0-0.7) 0.0 x10^3/uL (0.0-0.7) Basophils # (Auto) 0.2 x10^3/uL (0.0-0.2) 0.1 x10^3/uL (0.0-0.2) Prothrombin Time 16.3 SEC (11.7-14.0) Prothromb Time International Ratio 1.3 (0.8-1.1) Sodium Level 129 mmol/L (136-145) 128 mmol/L (136-145) Potassium Level 4.0 mmol/L (3.5-5.1) 3.3 mmol/L (3.5-5.1) Chloride Level 96 mmol/L (98-107) 94 mmol/L (98-107) Carbon Dioxide Level 28 mmol/L (21-32) 29 mmol/L (21-32) Anion Gap 5 (6-14) 5 (6-14) Blood Urea Nitrogen 16 mg/dL (7-20) 14 mg/dL (7-20) Creatinine 0.7 mg/dL (0.6-1.0) 0.6 mg/dL (0.6-1.0) Estimated GFR (Cockcroft-Gault) 85.9 102.7 Glucose Level 121 mg/dL (70-99) 194 mg/dL (70-99) Calcium Level 8.1 mg/dL (8.5-10.1) 7.5 mg/dL (8.5-10.1) Phosphorus Level 2.1 mg/dL (2.6-4.7) 2.0 mg/dL (2.6-4.7) Lipase 23 U/L (73-393) BUN/Creatinine Ratio 23 (6-20) Magnesium Level 1.8 mg/dL (1.8-2.4) Total Bilirubin 0.5 mg/dL (0.2-1.0) Aspartate Amino Transf (AST/SGOT) 30 U/L (15-37) Alanine Aminotransferase (ALT/SGPT) 28 U/L (14-59) Alkaline Phosphatase 91 U/L (46-116) Total Protein 4.7 g/dL (6.4-8.2) Albumin 1.3 g/dL (3.4-5.0) Albumin/Globulin Ratio 0.4 (1.0-1.7) Laboratory Tests Test 02/03/19 05:35 White Blood Count 24.9 x10^3/uL (4.0-11.0) Red Blood Count 2.86 x10^6/uL (3.50-5.40) Hemoglobin 9.6 g/dL (12.0-15.5) Hematocrit 27.7 % (36.0-47.0) Mean Corpuscular Volume 97 fL (79-100) Mean Corpuscular Hemoglobin 33 pg (25-35) Mean Corpuscular Hemoglobin Concent 35 g/dL (31-37) Red Cell Distribution Width 13.0 % (11.5-14.5) Platelet Count 269 x10^3/uL (140-400) Neutrophils (%) (Auto) 80 % (31-73) Lymphocytes (%) (Auto) 8 % (24-48) Monocytes (%) (Auto) 11 % (0-9) Eosinophils (%) (Auto) 0 % (0-3) Basophils (%) (Auto) 0 % (0-3) Neutrophils # (Auto) 19.9 x10^3/uL (1.8-7.7) Lymphocytes # (Auto) 2.1 x10^3/uL (1.0-4.8) Monocytes # (Auto) 2.8 x10^3/uL (0.0-1.1) Eosinophils # (Auto) 0.0 x10^3/uL (0.0-0.7) Basophils # (Auto) 0.1 x10^3/uL (0.0-0.2) Sodium Level 128 mmol/L (136-145) Potassium Level 3.3 mmol/L (3.5-5.1) Chloride Level 94 mmol/L (98-107) Carbon Dioxide Level 29 mmol/L (21-32) Anion Gap 5 (6-14) Blood Urea Nitrogen 14 mg/dL (7-20) Creatinine 0.6 mg/dL (0.6-1.0) Estimated GFR (Cockcroft-Gault) 102.7 BUN/Creatinine Ratio 23 (6-20) Glucose Level 194 mg/dL (70-99) Calcium Level 7.5 mg/dL (8.5-10.1) Phosphorus Level 2.0 mg/dL (2.6-4.7) Magnesium Level 1.8 mg/dL (1.8-2.4) Total Bilirubin 0.5 mg/dL (0.2-1.0) Aspartate Amino Transf (AST/SGOT) 30 U/L (15-37) Alanine Aminotransferase (ALT/SGPT) 28 U/L (14-59) Alkaline Phosphatase 91 U/L (46-116) Total Protein 4.7 g/dL (6.4-8.2) Albumin 1.3 g/dL (3.4-5.0) Albumin/Globulin Ratio 0.4 (1.0-1.7) Assessment/Plan continue supportive measures will review with PEDRITO Madsen APRN Feb 03, 2019 09:38
[2019-02-03] MEDS: HEPARIN for SUB-Q USE 5,000 UNIT/ML VIAL. SQ SCH ×2 (09:43→21:29)
[2019-02-03] MEDS: MICAFUNGIN 100 MG in IV DEXTROSE 5% 100ML 100 ML IV SCH (10:35)
[2019-02-03] MEDS ORDERED: POTASSIUM PHOSPHATE DIBASIC 15 MMOL in IV NORMAL SALINE 250ML 250 ML IV ONE (11:00)
--- NOTE | 2019-02-03 11:07 | PATHOLOGY ---
[facility] Accession Number: [id number] . 01 Material submitted: . PART A: gastrointestinal site - WHIPPLE - FS PART B: liver - LIVER BIOPSY . 02 Frozen section diagnosis: . INTRAOPERATIVE CONSULT (Calderon Montoya MD) . INTRAOPERATIVE CONSULTATION WITH FROZEN SECTION: Gallbladder, common bile duct, and pancreaticoduodenal resection (Whipple): - INVASIVE PANCREATIC DUCTAL ADENOCARCINOMA. . Frozen section performed at [facility], [address] [place] [address], [place] [address]. . The results were reported to Dr. Levin in the operating room. . GROSS DESCRIPTION The specimen is received fresh and is designated "Whipple". This consists of the gallbladder, common bile duct, and pancreaticoduodenal resection. The gallbladder is distended and measures up to 12.5 cm in length and 6.4 cm in width. The serosa is dark red and hyperemic. The common bile duct measures approximately 5.0 cm in length and distally is distended up to 1.4 cm. There is a blue suture attached to the common duct. The duodenum measures approximately 15.__ cm in length and is up to 4.0 cm in diameter. The serosa is dark red and hyperemic. The segment is stapled closed at both ends. The attached pancreas measures up to 6.0 x 4.0 x 3.5 cm. The pancreas is yellow red and shows focal dark black cautery changes. The pancreatic duct of the pancreatic neck margin of resection has an attached single suture. There is a double suture attached to the posterior uncinate margin. There is a mass palpated within the pancreatic head and uncinate region. The posterior/inferior uncinate margin is inked with black ink. The vascular groove margin is inked with orange ink. An incision is made into the uncinate and pancreatic head from the posterior aspect into the firm mass. A motor vehicle field representative portion is submitted for intraoperative consultation with frozen section as FSA1. The tissue remaining from frozen section is submitted for permanent sections as A1. The gallbladder is opened and is distended with yellow brown bile. No calculi are identified. The duodenum is opened along the antimesenteric aspect. The duodenum contains yellow brown bile. The duodenal mucosa is yellowish brown and transversely folded and focally erythematous. The ampulla of Vater is identified and from the mucosal aspect appears normal. . (JPM:ilda; 01/27/2019) LISANDRO/QMS . 03 Diagnosis: A. Pancreaticoduodenectomy (Whipple resection): - Pancreatic ductal adenocarcinoma, well to moderately differentiated. - Adenocarcinoma involves vascular groove soft tissue resection margin. - Two lymph nodes involved by metastatic carcinoma (2/). (See comment) . B. Liver, biopsy: - Pending consultation by [facility] hepatopathologist. - Consultation diagnosis will follow in an addendum. . (MAP:[facility]; 02/02/2019) . . . . Surgical Pathology Cancer Case Summary . PANCREAS (EXOCRINE): . Procedure ___ Pancreaticoduodenectomy (Whipple resection), partial pancreatectomy . Tumor Site ___ Pancreatic head . Tumor Size Greatest dimension (centimeters): 3 cm . Histologic Type ___ Ductal adenocarcinoma . . Histologic Grade ___ G2: Moderately differentiated . Tumor Extension ___ Tumor is confined to pancreas . . Margins . Margins examined (specify): Vascular groove soft tissue margin is involved by adenocarcinoma . Carcioma approaches uncinate margin, but does not involve . Lymphovascular Invasion ___ Not identified . Perineural Invasion ___ Present . . Regional Lymph Nodes Number of Lymph Nodes Involved: 2 . Number of Lymph Nodes Examined: 17 . . Pathologic Stage Classification (pTNM, AJCC 8th Edition) . Primary Tumor (pT)# ___ pT2:Tumor >2 cm and =4 cm in greatest dimension . . Regional Lymph Nodes (pN) ___ pN1: Metastasis in one to three regional lymph nodes . (MAP:[facility]; 02/02/2019) [facility] 02/03/2019 1052 Local . 03 Comment: Co-review is Dr. Perez . (MAP:[facility]; 02/02/2019) . 03 Electronically signed: . Gómez Antunez MD, Pathologist NPI- [id number] . 01 Gross description: . The anterior pancreatic surface is inked yellow. The pancreatic neck margin is shaved and the pancreatic duct is probed patent, opened, and inked blue. The bile duct margin is shaved and the bile duct is probe patent, opened, and inked green. The pancreas is serially sectioned to reveal that the previously described firm mass measures 3.0 x 2.7 x 2.2 cm. The mass is located to the margins as follows: 2.5 cm to the proximal duodenal margin, 8.5 cm to the distal duodenal margin, 4.5 cm to the bile duct margin, 2.0 cm to the pancreatic neck margin, diffusely abuts the uncinate margin, and diffusely abuts the vascular groove. The mass abuts but does not grossly involve the bile duct and pancreatic duct. The mass is located 2.3 cm from the ampulla of Vater. The mass is located 1.1 cm from the anterior pancreatic surface and 0.1 cm from the posterior pancreatic surface. The uninvolved pancreatic tissue is yellow and lobulated. Multiple peripancreatic lymph nodes are palpated, ranging from 0.5 to 0.7 cm in greatest dimension. . The gallbladder is opened to reveal mo-brown velvety mucosa and an average wall thickness of 0.1 cm. Calculi are not grossly identified. A lymph node is identified adjacent to the gallbladder neck measuring 1.3 cm in greatest dimension. . A1 motor vehicle field representative frozen section of mass A2 proximal duodenal margin A3 distal duodenal margin A4 pancreatic neck margin A5 bile duct margin A6 bile duct lymph node, bisected A7 motor vehicle field representative gallbladder fundus, body, and neck A8 pancreatic duct and bile duct to ampulla of Vater A9 mass to pancreatic duct A10 mass to bile duct A11 mass to vascular groove A12-A14 mass to uncinate margin (perpendicular sections) A15 mass to posterior pancreatic surface A16 one bisected lymph node from uncinate margin A17 multiple whole lymph nodes A18 one lymph node, serially sectioned A19 one bisected lymph node A20-A26 peripancreatic fat submitted entirely . B. Received in formalin labeled "Quita Iqbal, liver biopsy" is a wedge biopsy of mo-brown possible liver tissue measuring 1.9 x 0.9 x 0.9 cm. The resection margin is inked black. Upon sectioning, the cut surface displays a mo-white nodular mass measuring 1.8 x 0.9 x 0.7 cm. The mass abuts the resection margin and the liver capsule. The specimen is submitted entirely in cassette B1. ([facility] [place] 01/29/2019[place] [facility] 01/29/2019 1616 Local . 03 Pathologist provided ICD-10: C25.0, C77.2 . 03 CPT . 375813, 927612, 188942 Specimen Comment: A courtesy copy of this report has been sent to Specimen Comment: [phone]. Specimen Comment: Report sent to Performed at: 01 [facility] [address] [facility] [address], [place] [id number] MD Gumaro Barrientos MD Phone: [phone] Performed at: 02 [facility] [address] [place], [place] [id number] MD Calderon Montoya MD Phone: [phone] Performed at: 03 [facility] [address] [id number] MD Evelyn Thomas MD Phone: [phone]
--- NOTE | 2019-02-03 11:23 | PDOC ---
[facility] PROGRESS NOTE Chief Complaint Chief Complaint Pancreatic mass H/o hep c Hepatitis Alcoholism Bilateral Mastectomy Hypokalemia Acute pancreatitis 02/05 Hyperlipidemia COPD Periperal neuropathy Cirrhosis Anxiety History of Present Illness History of Present Illness 02/03/19 Pt seen and examined in ICU. Pt is lethargic and unable to open her eyes LANG RN 02/02/19 Pt seen and examined in ICU Consulted Dr. Levin by phone in pt's room, confirmed central line can be placed despite previous mastectomy. Pt is lethargic and unable to open her eyes Pushing ROOF SHINGLER Dilaudid ALNG RN and daughter and grandson 02/01/19 Pt seen/examined in the ICU Pt is awake, but weak with nausea and pain Chart Reviewed DW RN and family 01/31/19 Pt seen and examined in the ICU Pt is awake/talking and able to tolerate PO meds DW RN Chart Reviewed 9�13�2019 Patient seen and examined in the ICU Patient's daughter still present in his good support for her (Griselda) Discussed with RN Chart reviewed 01/29/19 Pt seen and examined in ICU at bedside s/p Whipple SEA drain at RLQ intact Pt sleeping upon entry and with daughter today- appears in NAD Daughter says pt is alcoholic; she also says pt did not sleep well last night LANG RN Vitals/I&O Vitals/I&O: Vital Signs Date Time Temp Pulse Resp B/P (MAP) Pulse Ox O2 Delivery O2 Flow Rate FiO2 02/03/19 09:15 132 110/68 02/03/19 08:42 98 Nasal Cannula 2.0 02/03/19 06:00 11 02/03/19 04:00 99.0 99.0 I & O 02/02/19 02/02/19 02/03/19 14:59 22:59 06:59 Intake Total 450 ml 438.5 ml 1309 ml Output Total 460 ml 985 ml 280 ml Balance -10 ml -546.5 ml 1029 ml Physical Exam Physical Exam: GENERAL: Awakensbut min coop HEENT: Normocephalic, atraumatic, anicteric. No thrush. Oral mucosa dry. NECK: Supple, no JVD, no tenderness. LUNGS: Clear anteriorly. HEART: S1, S2. No gallops or murmurs. ABDOMEN: Soft, mildly distended. [place] in place. SEA drains intact with serosanguineous drainage. Decreased Bowel sounds present.Wound is dressed Tenderness present. EXTREMITIES: No edema, no cyanosis. PIV looks okay. DERMATOLOGIC: Warm, dry. No generalized rash. GENITOURINARY: No Moreno. CENTRAL NERVOUS SYSTEM: Alert, awake, moves all 4 extremities. Coop General: Alert, Cooperative, Other (noted in pain) Heart: Regular rate, Normal S1 Lungs: Clear Abdomen: Soft, Other (g tube to LIS, drains serous) Extremities: No clubbing, No cyanosis, No tenderness/swelling Skin: No rashes, No breakdown Labs Labs: Laboratory Tests Test 02/03/19 05:35 White Blood Count 24.9 x10^3/uL (4.0-11.0) Red Blood Count 2.86 x10^6/uL (3.50-5.40) Hemoglobin 9.6 g/dL (12.0-15.5) Hematocrit 27.7 % (36.0-47.0) Mean Corpuscular Volume 97 fL (79-100) Mean Corpuscular Hemoglobin 33 pg (25-35) Mean Corpuscular Hemoglobin Concent 35 g/dL (31-37) Red Cell Distribution Width 13.0 % (11.5-14.5) Platelet Count 269 x10^3/uL (140-400) Neutrophils (%) (Auto) 80 % (31-73) Lymphocytes (%) (Auto) 8 % (24-48) Monocytes (%) (Auto) 11 % (0-9) Eosinophils (%) (Auto) 0 % (0-3) Basophils (%) (Auto) 0 % (0-3) Neutrophils # (Auto) 19.9 x10^3/uL (1.8-7.7) Lymphocytes # (Auto) 2.1 x10^3/uL (1.0-4.8) Monocytes # (Auto) 2.8 x10^3/uL (0.0-1.1) Eosinophils # (Auto) 0.0 x10^3/uL (0.0-0.7) Basophils # (Auto) 0.1 x10^3/uL (0.0-0.2) Sodium Level 128 mmol/L (136-145) Potassium Level 3.3 mmol/L (3.5-5.1) Chloride Level 94 mmol/L (98-107) Carbon Dioxide Level 29 mmol/L (21-32) Anion Gap 5 (6-14) Blood Urea Nitrogen 14 mg/dL (7-20) Creatinine 0.6 mg/dL (0.6-1.0) Estimated GFR (Cockcroft-Gault) 102.7 BUN/Creatinine Ratio 23 (6-20) Glucose Level 194 mg/dL (70-99) Calcium Level 7.5 mg/dL (8.5-10.1) Phosphorus Level 2.0 mg/dL (2.6-4.7) Magnesium Level 1.8 mg/dL (1.8-2.4) Total Bilirubin 0.5 mg/dL (0.2-1.0) Aspartate Amino Transf (AST/SGOT) 30 U/L (15-37) Alanine Aminotransferase (ALT/SGPT) 28 U/L (14-59) Alkaline Phosphatase 91 U/L (46-116) Total Protein 4.7 g/dL (6.4-8.2) Albumin 1.3 g/dL (3.4-5.0) Albumin/Globulin Ratio 0.4 (1.0-1.7) Review of Systems Review of Systems: Unable to obtain ROS due to pt being sedated Assessment and Plan Assessmemt and Plan Assessment Pancreatic mass H/o hep c Hepatitis Alcoholism Bilateral Mastectomy Hypokalemia Acute pancreatitis 02/05 Hyperlipidemia COPD Periperal neuropathy Cirrhosis Anxiety Plan ICU monitoring Labs to monitor hypokalemia Wound Care TPN PPN Procalamine PO Thiamine Alcohol withdrawal protocol DVT prophylaxis IV Zosyn, Linezolid, Micafungin Home meds Full code Comment Review of Relevant I have reviewed the following items dante (where applicable) has been applied. Medications: Current Medications Medications (Trade) Dose Ordered Sig/Deandre Route PRN Reason Start Time Stop Time Status Last Admin Dose Admin Furosemide (Lasix) 20 mg 1X ONCE IVP 02/02/19 16:00 02/02/19 16:01 DC 02/02/19 16:16 Sodium Chloride 80 meq/Potassium Chloride 40 meq/ Sodium Phosphate 13.6 mmol/ Magnesium Sulfate 10 meq/Calcium Gluconate 10 meq/ Multivitamins 10 ml/Chromium/ Copper/Manganese/ Seleni/Zn 1 ml/ Total Parenteral Nutrition/Amino Acids/Dextrose/ Fat Emulsion Intravenous 1,512 ml @ 63 mls/hr TPN CONT IV 02/02/19 22:00 02/03/19 21:59 02/02/19 21:50 NADIA GREENE III DO Feb 03, 2019 11:23
[2019-02-03] MEDS ORDERED: POTASSIUM CHLORIDE 20 MEQ TABLET.ER. PO ONE ×2 (11:30→21:00)
[2019-02-03] MEDS: TPN PER PHARMACY MC PRN ×2 (13:34→13:41)
[2019-02-03] MEDS ORDERED: DEXTROSE 70% IV SCH ×10 (22:00)
[2019-02-03] MEDS ORDERED: [UNRECOGNIZED DRUG - OTHER] IV SCH ×10 (22:00)
[2019-02-03] MEDS ORDERED: AMINO ACID IV SCH ×10 (22:00)
[2019-02-03] MEDS ORDERED: TOTAL PARENTERAL NUTRITION IV SCH ×10 (22:00)
[2019-02-04] VITALS (17 sets, daily range): BP systolic 100–147; BP diastolic 55–75
[2019-02-04] MEDS: PIPERACILLIN/TAZOBACTAM 3.375 GM in IV NORMAL SALINE 50ML 50 ML IV SCH ×2 (00:17→05:58)
[2019-02-04 05:28] LABS: BASO # 0.1 x10^3/uL (0.0-0.2); BASO % 0 % (0-3); EOS # 0.1 x10^3/uL (0.0-0.7); EOS % 0 % (0-3); HEMOGLOBIN 9.9 g/dL (12.0-15.5); LYMPH # 2.7 x10^3/uL (1.0-4.8); LYMPH % 9 % (24-48); MEAN CORPUSCULAR HEMOGLOBIN 33 pg (25-35); MEAN CORPUSCULAR HGB CONC 34 g/dL (31-37); MEAN CORPUSCULAR VOLUME 97 fL (79-100); MONO % 10 % (0-9); NEUT # 23.8 x10^3/uL (1.8-7.7); NEUT % 80 % (31-73); PLATELET COUNT 322 x10^3/uL (140-400); RED CELL DISTRIBUTION WIDTH 13.5 % (11.5-14.5); WHITE BLOOD COUNT 29.7 x10^3/uL (4.0-11.0)
[2019-02-04 05:51] LABS: CALCIUM 7.5 mg/dL (8.5-10.1); CREATININE 0.6 mg/dL (0.6-1.0); GFR 102.7; MAGNESIUM 1.7 mg/dL (1.8-2.4); PHOSPHORUS 2.1 mg/dL (2.6-4.7); POTASSIUM 3.9 mmol/L (3.5-5.1)
--- NOTE | 2019-02-04 06:06 | PDOC ---
Infectious Disease Note Subjective Subjective min responses but nodded she is doing ok ROS ROS sporatic Vital Sign Vital Signs Vital Signs Date Time Temp Pulse Resp B/P (MAP) Pulse Ox O2 Delivery O2 Flow Rate FiO2 02/04/19 05:00 112 18 128/68 (88) 98 Room Air 02/04/19 04:00 99.0 99.0 02/03/19 08:42 2.0 Physical Exam PHYSICAL EXAM GENERAL: Awakensbut min coop. Does not appear toxic and looks comfortable HEENT: Normocephalic, atraumatic, anicteric. Refused to open her mouth NECK: Supple, no JVD, no tenderness. LUNGS: Clear anteriorly. HEART: S1, S2. No gallops or murmurs. ABDOMEN: Soft, mildly distended. [place] in place. SEA drains intact with serosanguineous drainage. Decreased Bowel sounds present.Wound is dressed Tenderness present. EXTREMITIES: No edema, no cyanosis. DERMATOLOGIC: Warm, dry. No generalized rash. GENITOURINARY: No Moreno. CENTRAL NERVOUS SYSTEM: Alert, awake, moves all 4 extremities. IVs: RIJ - clean Labs Lab Laboratory Tests Test 02/04/19 05:20 White Blood Count 29.7 x10^3/uL (4.0-11.0) Red Blood Count 3.00 x10^6/uL (3.50-5.40) Hemoglobin 9.9 g/dL (12.0-15.5) Hematocrit 29.0 % (36.0-47.0) Mean Corpuscular Volume 97 fL (79-100) Mean Corpuscular Hemoglobin 33 pg (25-35) Mean Corpuscular Hemoglobin Concent 34 g/dL (31-37) Red Cell Distribution Width 13.5 % (11.5-14.5) Platelet Count 322 x10^3/uL (140-400) Neutrophils (%) (Auto) 80 % (31-73) Lymphocytes (%) (Auto) 9 % (24-48) Monocytes (%) (Auto) 10 % (0-9) Eosinophils (%) (Auto) 0 % (0-3) Basophils (%) (Auto) 0 % (0-3) Neutrophils # (Auto) 23.8 x10^3/uL (1.8-7.7) Lymphocytes # (Auto) 2.7 x10^3/uL (1.0-4.8) Monocytes # (Auto) 3.0 x10^3/uL (0.0-1.1) Eosinophils # (Auto) 0.1 x10^3/uL (0.0-0.7) Basophils # (Auto) 0.1 x10^3/uL (0.0-0.2) Sodium Level 131 mmol/L (136-145) Potassium Level 3.9 mmol/L (3.5-5.1) Chloride Level 97 mmol/L (98-107) Carbon Dioxide Level 28 mmol/L (21-32) Anion Gap 6 (6-14) Blood Urea Nitrogen 14 mg/dL (7-20) Creatinine 0.6 mg/dL (0.6-1.0) Estimated GFR (Cockcroft-Gault) 102.7 Glucose Level 169 mg/dL (70-99) Calcium Level 7.5 mg/dL (8.5-10.1) Phosphorus Level 2.1 mg/dL (2.6-4.7) Magnesium Level 1.7 mg/dL (1.8-2.4) Triglycerides Level 70 mg/dL (0-150) Micro Impression: Gas and fluid collection at the gallbladder fossa. Correlate for possibility of abscess. Catheter drains are noted coursing through the anterior aspect of this collection. Hepatic cirrhosis or other fibrotic process. Bilateral pleural effusions and adjacent bibasilar atelectasis. Pelvic free fluid is present. Stomach is distended with fluid. Objective Assessment 1. Fever - reolved UA - clean. 2. Leukocytosis - increased - today - lactic nml. ? Ileus - small BM 2 days ago per nursing. ? reactive - fever better and nursing reports clinically better with ambulation and sitting in chair yesterday 3. Status post Whipple's 01/27 - CT as above - epidural out but on SILVERER 4. Alcohol withdrawal. 5. Abdominal pain. 6. History of hepatitis C. 7. History of bilateral mastectomy. 8. Chronic obstructive pulmonary disease. 8. Peripheral neuropathy. 9. Anxiety. Plan Plan of Care Add procalcitonin to this ams labs Discont Zosyn (02/01) and begin Meropenem today D/c Zyvox Cont Micafungin 02/01 Electrolyte abnormalities per primary f/u bc and urine c/s f/u labs in am and cults maintain aspiration precautions IF WBC increases again or she spikes will need to cult and reimage D/w nursing SCOTT REYEZ MD Feb 04, 2019 06:06
[2019-02-04] MEDS: MEROPENEM 500 MG in IV NORMAL SALINE 50ML 50 ML IV SCH ×3 (07:54→17:49)
[2019-02-04] MEDS: IPRATRPIUM/ALBUTEROL 0.5/2.5MG 3 ML NEBU. NEB SCH ×4 (08:25→20:23)
[2019-02-04] MEDS: BUDESONIDE 0.5 MG/2 ML NEBU. NEB SCH ×2 (08:25→20:23)
--- NOTE | 2019-02-04 09:12 | PDOC ---
SURGICAL PROGRESS NOTE Subjective Pt remains restless, but then falls asleep, does well with ambulation, no N/v, beto clears, has had stools Vital Signs Vital Signs Date Time Temp Pulse Resp B/P (MAP) Pulse Ox O2 Delivery O2 Flow Rate FiO2 02/04/19 08:27 97 Room Air 02/04/19 06:02 118 20 132/71 (91) 02/04/19 04:00 99.0 99.0 02/03/19 08:42 2.0 I&O Intake and Output 02/04/19 06:59 Intake Total 2745 ml Output Total 3310 ml Balance -565 ml IV Total 2745 ml Output Urine Total 875 ml Gastric Drainage Total 200 ml Drainage Total 2235 ml PATIENT HAS A LEVI: No General: Alert, No acute distress Abdomen: Soft, No tenderness, Other (incision c/d/i, SEA serous) Labs Laboratory Tests Test 02/03/19 05:35 02/04/19 05:20 White Blood Count 24.9 x10^3/uL (4.0-11.0) 29.7 x10^3/uL (4.0-11.0) Red Blood Count 2.86 x10^6/uL (3.50-5.40) 3.00 x10^6/uL (3.50-5.40) Hemoglobin 9.6 g/dL (12.0-15.5) 9.9 g/dL (12.0-15.5) Hematocrit 27.7 % (36.0-47.0) 29.0 % (36.0-47.0) Mean Corpuscular Volume 97 fL (79-100) 97 fL (79-100) Mean Corpuscular Hemoglobin 33 pg (25-35) 33 pg (25-35) Mean Corpuscular Hemoglobin Concent 35 g/dL (31-37) 34 g/dL (31-37) Red Cell Distribution Width 13.0 % (11.5-14.5) 13.5 % (11.5-14.5) Platelet Count 269 x10^3/uL (140-400) 322 x10^3/uL (140-400) Neutrophils (%) (Auto) 80 % (31-73) 80 % (31-73) Lymphocytes (%) (Auto) 8 % (24-48) 9 % (24-48) Monocytes (%) (Auto) 11 % (0-9) 10 % (0-9) Eosinophils (%) (Auto) 0 % (0-3) 0 % (0-3) Basophils (%) (Auto) 0 % (0-3) 0 % (0-3) Neutrophils # (Auto) 19.9 x10^3/uL (1.8-7.7) 23.8 x10^3/uL (1.8-7.7) Lymphocytes # (Auto) 2.1 x10^3/uL (1.0-4.8) 2.7 x10^3/uL (1.0-4.8) Monocytes # (Auto) 2.8 x10^3/uL (0.0-1.1) 3.0 x10^3/uL (0.0-1.1) Eosinophils # (Auto) 0.0 x10^3/uL (0.0-0.7) 0.1 x10^3/uL (0.0-0.7) Basophils # (Auto) 0.1 x10^3/uL (0.0-0.2) 0.1 x10^3/uL (0.0-0.2) Sodium Level 128 mmol/L (136-145) 131 mmol/L (136-145) Potassium Level 3.3 mmol/L (3.5-5.1) 3.9 mmol/L (3.5-5.1) Chloride Level 94 mmol/L (98-107) 97 mmol/L (98-107) Carbon Dioxide Level 29 mmol/L (21-32) 28 mmol/L (21-32) Anion Gap 5 (6-14) 6 (6-14) Blood Urea Nitrogen 14 mg/dL (7-20) 14 mg/dL (7-20) Creatinine 0.6 mg/dL (0.6-1.0) 0.6 mg/dL (0.6-1.0) Estimated GFR (Cockcroft-Gault) 102.7 102.7 BUN/Creatinine Ratio 23 (6-20) Glucose Level 194 mg/dL (70-99) 169 mg/dL (70-99) Calcium Level 7.5 mg/dL (8.5-10.1) 7.5 mg/dL (8.5-10.1) Phosphorus Level 2.0 mg/dL (2.6-4.7) 2.1 mg/dL (2.6-4.7) Magnesium Level 1.8 mg/dL (1.8-2.4) 1.7 mg/dL (1.8-2.4) Total Bilirubin 0.5 mg/dL (0.2-1.0) Aspartate Amino Transf (AST/SGOT) 30 U/L (15-37) Alanine Aminotransferase (ALT/SGPT) 28 U/L (14-59) Alkaline Phosphatase 91 U/L (46-116) Total Protein 4.7 g/dL (6.4-8.2) Albumin 1.3 g/dL (3.4-5.0) Albumin/Globulin Ratio 0.4 (1.0-1.7) Triglycerides Level 70 mg/dL (0-150) Procalcitonin 0.53 ng/mL (0.00-0.10) Laboratory Tests Test 02/04/19 05:20 White Blood Count 29.7 x10^3/uL (4.0-11.0) Red Blood Count 3.00 x10^6/uL (3.50-5.40) Hemoglobin 9.9 g/dL (12.0-15.5) Hematocrit 29.0 % (36.0-47.0) Mean Corpuscular Volume 97 fL (79-100) Mean Corpuscular Hemoglobin 33 pg (25-35) Mean Corpuscular Hemoglobin Concent 34 g/dL (31-37) Red Cell Distribution Width 13.5 % (11.5-14.5) Platelet Count 322 x10^3/uL (140-400) Neutrophils (%) (Auto) 80 % (31-73) Lymphocytes (%) (Auto) 9 % (24-48) Monocytes (%) (Auto) 10 % (0-9) Eosinophils (%) (Auto) 0 % (0-3) Basophils (%) (Auto) 0 % (0-3) Neutrophils # (Auto) 23.8 x10^3/uL (1.8-7.7) Lymphocytes # (Auto) 2.7 x10^3/uL (1.0-4.8) Monocytes # (Auto) 3.0 x10^3/uL (0.0-1.1) Eosinophils # (Auto) 0.1 x10^3/uL (0.0-0.7) Basophils # (Auto) 0.1 x10^3/uL (0.0-0.2) Sodium Level 131 mmol/L (136-145) Potassium Level 3.9 mmol/L (3.5-5.1) Chloride Level 97 mmol/L (98-107) Carbon Dioxide Level 28 mmol/L (21-32) Anion Gap 6 (6-14) Blood Urea Nitrogen 14 mg/dL (7-20) Creatinine 0.6 mg/dL (0.6-1.0) Estimated GFR (Cockcroft-Gault) 102.7 Glucose Level 169 mg/dL (70-99) Calcium Level 7.5 mg/dL (8.5-10.1) Phosphorus Level 2.1 mg/dL (2.6-4.7) Magnesium Level 1.7 mg/dL (1.8-2.4) Triglycerides Level 70 mg/dL (0-150) Procalcitonin 0.53 ng/mL (0.00-0.10) Problem List s/p whipple OOB with PT will stop [employer] and try PO pain meds. appreciate ID, will monitor CBC other labs appear to be improving, and VS and temp stabilizing Given persistent tachycardia, will check CT chest and US to evaluate for DVT, PE. Amylase and lipase from SEA if above improves/looks good, will plan d/c to floor in AM with CO. HÉCTOR RANDALL MD Feb 04, 2019 09:12
[2019-02-04] MEDS: PANTOPRAZOLE 40 MG TABLET.DR. PO SCH (09:13)
[2019-02-04] MEDS: THIAMINE 100 MG TABLET. PO SCH (09:13)
[2019-02-04] MEDS: METOPROLOL TART IMMED RELEASE 25 MG TABLET. PO SCH ×2 (09:14→20:45)
[2019-02-04] MEDS: FAMOTIDINE 20 MG/2 ML VIAL IVP SCH ×2 (09:14→20:45)
[2019-02-04] MEDS: HEPARIN for SUB-Q USE 5,000 UNIT/ML VIAL. SQ SCH ×2 (09:21→20:46)
[2019-02-04] MEDS: oxyCODONE/APAP 5/325 1 TAB TABLET PO PRN ×3 (09:23→18:17)
[2019-02-04] MEDS ORDERED: CONTRAST GIVEN. MC PRN (10:15)
[2019-02-04] MEDS ORDERED: IOHEXOL 350 MG/ML 100 ML VIAL. IV ONE (10:15)
--- NOTE | 2019-02-04 10:30 | RAD ---
Bilateral lower extremity venous doppler ultrasound History: Tachycardia Comparison: None Findings: Multiple grayscale, color, and duplex spectral analysis sonographic images were acquired of the bilateral lower extremity veins to evaluate for the presence of DVT. There is normal phasicity. Normal compression, color-flow, and augmentation is demonstrated from the bilateral common femoral to the popliteal veins. There is normal color flow of the proximal greater saphenous and profunda femoris veins. There is normal color flow of segments of the calf veins. Impression: 1. There is no evidence of deep venous thrombosis from the bilateral common femoral to the popliteal veins. Electronically signed by: Pilo Bello MD (02/04/2019 10:27 AM) [facility]
[2019-02-04] MEDS: MICAFUNGIN 100 MG in IV DEXTROSE 5% 100ML 100 ML IV SCH (11:04)
[2019-02-04] MEDS: LORazepam 1 MG TABLET PO PRN ×2 (12:00→18:17)
--- NOTE | 2019-02-04 12:41 | PDOC ---
[facility] PROGRESS NOTE Chief Complaint Chief Complaint Pancreatic mass H/o hep c Hepatitis Alcoholism Bilateral Mastectomy Hypokalemia Acute pancreatitis 02/05 Hyperlipidemia COPD Periperal neuropathy Cirrhosis Anxiety History of Present Illness History of Present Illness 02/04/19 Pt seen and examined in ICU Pt agitated and trying to get out of bed She denies any pain but wants Ativan LANG RN and daughter 02/03/19 Pt seen and examined in ICU. Pt is lethargic and unable to open her eyes LANG RN 02/02/19 Pt seen and examined in ICU Consulted Dr. Levin by phone in pt's room, confirmed central line can be placed despite previous mastectomy. Pt is lethargic and unable to open her eyes Pushing PATCH SANDER Dilaudid LANG RN and daughter and grandson 02/01/19 Pt seen/examined in the ICU Pt is awake, but weak with nausea and pain Chart Reviewed DW RN and family 01/31/19 Pt seen and examined in the ICU Pt is awake/talking and able to tolerate PO meds DW RN Chart Reviewed [id number] Patient seen and examined in the ICU Patient's daughter still present in his good support for her (Griselda) Discussed with RN Chart reviewed 01/29/19 Pt seen and examined in ICU at bedside s/p Whipple SEA drain at RLQ intact Pt sleeping upon entry and with daughter today- appears in NAD Daughter says pt is alcoholic; she also says pt did not sleep well last night LANG RN Vitals/I&O Vitals/I&O: Vital Signs Date Time Temp Pulse Resp B/P (MAP) Pulse Ox O2 Delivery O2 Flow Rate FiO2 02/04/19 09:21 105 136/32 02/04/19 08:27 97 Room Air 02/04/19 06:02 20 02/04/19 04:00 99.0 99.0 02/03/19 08:42 2.0 I & O 02/03/19 02/03/19 02/04/19 14:59 22:59 06:59 Intake Total 450 ml 731 ml 1564 ml Output Total 1335 ml 1625 ml 350 ml Balance -885 ml -894 ml 1214 ml Physical Exam Physical Exam: GENERAL: Awakensbut min coop. Does not appear toxic and looks comfortable HEENT: Normocephalic, atraumatic, anicteric. Refused to open her mouth NECK: Supple, no JVD, no tenderness. LUNGS: Clear anteriorly. HEART: S1, S2. No gallops or murmurs. ABDOMEN: Soft, mildly distended. Brooke in place. SEA drains intact with serosanguineous drainage. Decreased Bowel sounds present.Wound is dressed Tenderness present. EXTREMITIES: No edema, no cyanosis. DERMATOLOGIC: Warm, dry. No generalized rash. GENITOURINARY: No Moreno. CENTRAL NERVOUS SYSTEM: Alert, awake, moves all 4 extremities. IVs: RIJ - clean General: Alert, No acute distress Heart: Regular rate, Normal S1 Lungs: Clear Abdomen: Soft, No tenderness, Other (incision c/d/i, SEA serous) Extremities: No clubbing, No cyanosis, No tenderness/swelling Skin: No rashes, No breakdown Labs Labs: Laboratory Tests Test 02/04/19 05:20 White Blood Count 29.7 x10^3/uL (4.0-11.0) Red Blood Count 3.00 x10^6/uL (3.50-5.40) Hemoglobin 9.9 g/dL (12.0-15.5) Hematocrit 29.0 % (36.0-47.0) Mean Corpuscular Volume 97 fL (79-100) Mean Corpuscular Hemoglobin 33 pg (25-35) Mean Corpuscular Hemoglobin Concent 34 g/dL (31-37) Red Cell Distribution Width 13.5 % (11.5-14.5) Platelet Count 322 x10^3/uL (140-400) Neutrophils (%) (Auto) 80 % (31-73) Lymphocytes (%) (Auto) 9 % (24-48) Monocytes (%) (Auto) 10 % (0-9) Eosinophils (%) (Auto) 0 % (0-3) Basophils (%) (Auto) 0 % (0-3) Neutrophils # (Auto) 23.8 x10^3/uL (1.8-7.7) Lymphocytes # (Auto) 2.7 x10^3/uL (1.0-4.8) Monocytes # (Auto) 3.0 x10^3/uL (0.0-1.1) Eosinophils # (Auto) 0.1 x10^3/uL (0.0-0.7) Basophils # (Auto) 0.1 x10^3/uL (0.0-0.2) Sodium Level 131 mmol/L (136-145) Potassium Level 3.9 mmol/L (3.5-5.1) Chloride Level 97 mmol/L (98-107) Carbon Dioxide Level 28 mmol/L (21-32) Anion Gap 6 (6-14) Blood Urea Nitrogen 14 mg/dL (7-20) Creatinine 0.6 mg/dL (0.6-1.0) Estimated GFR (Cockcroft-Gault) 102.7 Glucose Level 169 mg/dL (70-99) Calcium Level 7.5 mg/dL (8.5-10.1) Phosphorus Level 2.1 mg/dL (2.6-4.7) Magnesium Level 1.7 mg/dL (1.8-2.4) Triglycerides Level 70 mg/dL (0-150) Procalcitonin 0.53 ng/mL (0.00-0.10) Review of Systems Review of Systems: Denies pain Co weakness Assessment and Plan Assessmemt and Plan Assessment Pancreatic mass Leukocytosis (steroids) H/o hep c Hepatitis Alcoholism Bilateral Mastectomy Hypokalemia Acute pancreatitis 02/05 Hyperlipidemia COPD Periperal neuropathy Cirrhosis Anxiety Plan ICU monitoring Labs to monitor hypokalemia Wound Care TPN Ativan 2mg POQ 4 PRN Alcohol withdrawal protocol DVT prophylaxis IV Zosyn, Linezolid, Micafungin Home meds Monitor WBCs (steroids) Full code Comment Review of Relevant I have reviewed the following items dante (where applicable) has been applied. Medications: Current Medications Medications (Trade) Dose Ordered Sig/Deandre Route PRN Reason Start Time Stop Time Status Last Admin Dose Admin Sodium Chloride 120 meq/Potassium Chloride 50 meq/ Sodium Phosphate 20.4 mmol/ Magnesium Sulfate 10 meq/Calcium Gluconate 10 meq/ Multivitamins 10 ml/Chromium/ Copper/Manganese/ Seleni/Zn 1 ml/ Total Parenteral Nutrition/Amino Acids/Dextrose/ Fat Emulsion Intravenous 1,512 ml @ 63 mls/hr TPN CONT IV 02/03/19 22:00 02/04/19 21:59 02/03/19 21:30 Potassium Chloride (Klor-Con) 40 meq 1X ONCE PO 02/03/19 21:00 02/03/19 21:01 DC 02/03/19 21:31 Meropenem 500 mg/ Sodium Chloride 50 ml @ 100 mls/hr Q6HRS IV 02/04/19 07:00 02/04/19 07:55 Oxycodone/ Acetaminophen (Percocet 5/325) 1 tab PRN Q4HRS PRN PO MODERATE TO SEVERE PAIN 02/04/19 09:15 02/04/19 09:23 Iohexol (Omnipaque 350 Mg/ml) 75 ml 1X ONCE IV 02/04/19 10:15 02/04/19 10:16 DC 02/04/19 12:30 NADIA GREENE III DO Feb 04, 2019 12:41
--- NOTE | 2019-02-04 13:08 | RAD ---
Chest CTA History: Tachycardia Technique: After bolus of intravenous contrast, CT imaging was performed of the chest. Multiplanar reconstruction images to include MIP reconstruction images are submitted. Exposure: One or more of the following individualized dose reduction techniques were utilized for this examination: 1. Automated exposure control 2. Adjustment of the mA and/or kV according to patient size 3. Use of iterative reconstruction technique. Comparison: January 22, 2018 Findings: There is some motion degradation. No pulmonary embolism is identified. There are small dependent pleural effusions bilaterally with adjacent compressive atelectasis/mild infiltrate. There is mild infiltrate posterior right upper lobe, right lower lobe, also some mild somewhat groundglass infiltrate of left upper lobe as well as mild atelectasis.There is no significant pericardial fluid or pneumothorax. There is emphysema with upper zone predominance. Visualized stomach is distended with fluid present, also small caliber catheter in the gastric body probably coursing into the region of the duodenum although not fully seen.. There is drain in the superior abdomen. There is free air in the visualized abdomen. There is nodular margin of the liver. There is mild free fluid in the right upper quadrant of the abdomen. Abdomen is not fully evaluated. Thoracic aortic caliber is within normal limits, no intraluminal flap. There is nonspecific gas in the right neck soft tissues. There is right internal jugular venous catheter present. There is some coronary calcification. Impression: 1. No pulmonary embolism is identified. 2. There are small dependent pleural effusions bilaterally with adjacent basilar atelectasis/infiltrates of the lower lobes greater on the left, also other patchy areas of infiltrate bilaterally. 3. Visualized stomach is distended. There is mild free fluid of the visualized abdomen. There is pneumoperitoneum although there is drain present and there has been recent surgery. 4. There is gas in the right neck soft tissues presumably related to the presence of catheter. 5. There is nodular margin of the left liver, evidence of cirrhosis. 6. There is some coronary calcification. Findings discussed with patient's nurse Keena at 02/04/2019 1:04 PM. Electronically signed by: Pilo Bello MD (02/04/2019 1:05 PM) [id number]
[2019-02-04] MEDS: TPN PER PHARMACY MC PRN (13:18)
[2019-02-04] MEDS ORDERED: SODIUM PHOSPHATE 15 MMOL in IV DEXTROSE 5% 250 ML IV ONE (14:00)
[2019-02-04] MEDS: DOCUSATE SODIUM 100 MG CAPSULE. PO SCH (14:26)
[2019-02-04] MEDS: HALOPERIDOL LACTATE 5 MG/ML VIAL. IVP PRN ×2 (16:13→23:46)
[2019-02-04] MEDS ORDERED: [UNRECOGNIZED DRUG - OTHER] IV SCH ×10 (22:00)
[2019-02-04] MEDS ORDERED: AMINO ACID IV SCH ×10 (22:00)
[2019-02-04] MEDS ORDERED: DEXTROSE 70% IV SCH ×10 (22:00)
[2019-02-04] MEDS ORDERED: TOTAL PARENTERAL NUTRITION IV SCH ×10 (22:00)
--- NOTE | 2019-02-04 22:46 | CONS ---
DATE OF CONSULTATION: 02/04/2019 MEDICAL ONCOLOGY CONSULTATION REPORT REQUESTING PHYSICIAN: Dr. Joselito Levin. REASON FOR CONSULTATION: Pancreatic cancer and to discuss adjuvant chemotherapy options. HISTORY OF PRESENT ILLNESS: The patient is a 58-year-old female who presented to [facility] on 01/20/2019 with a 3-day history of right upper quadrant abdominal pain, nausea and vomiting. Ultrasound of the abdomen on 01/20/2019 revealed dilated pancreatic and common bile duct with moderately distended gallbladder. CT scan of the abdomen and pelvis on 01/21/2019 revealed a 2.8 cm mass in the head of the pancreas with no lymphadenopathy. MRCP on 01/21/2019 revealed a 2 cm mass at the head of the pancreas causing obstruction. She underwent an attempted ERCP, but was unable to undergo the procedure as she had taken something by mouth prior to the procedure. She underwent Whipple procedure on 01/27/[address] Levin. She underwent pyloric sparing pancreatic gastrostomy, hepaticojejunostomy, G tube placement and liver biopsy. I reviewed the pathology results with the pathologist at multidisciplinary tumor conference. There is evidence of invasive pancreatic adenocarcinoma, well to moderately differentiated involving the vascular groove soft tissue resection margin. Two out of 17 lymph nodes are positive. She is recovering in the ICU. PAST MEDICAL HISTORY: COPD, hepatitis C, hyperlipidemia, cirrhosis of the liver, breast cancer with bilateral mastectomy and adjuvant chemotherapy, partial hysterectomy, alcoholism, GERD, gallstones. FAMILY HISTORY: Positive for cancer and cardiovascular disease. SOCIAL HISTORY: She has a history of smoking half to 1 pack per day for 40 years. History of heavy alcohol use. REVIEW OF SYSTEMS: A 12-point review of system was performed. Pertinent positives are mentioned in the history of present illness. Rest of the system review is negative. PHYSICAL EXAMINATION: GENERAL APPEARANCE: The patient is a 58-year-old female, who appears restless and in no acute cardiorespiratory distress. VITAL SIGNS: Blood pressure 136/32 and temperature 99 degrees. HEENT: Head: Atraumatic, normocephalic. Eyes: No icterus. NECK: Supple. CHEST: Bilaterally symmetrical. HEART: S1, S2 normal. ABDOMEN: Soft. Postop changes noted. CENTRAL NERVOUS SYSTEM: No focal deficits. LYMPHATICS: No lymphadenopathy. SKIN: No rashes. PSYCHOLOGIC: Mood and affect are appropriate. LABORATORY AND DIAGNOSTIC DATA: WBC 29.7, hemoglobin 9.9, platelet count 322. Creatinine 0.6, total bilirubin 0.5. IMPRESSION AND PLAN: 1. T2, N1 pancreatic cancer. Liver biopsy is still pending. She underwent Whipple surgery on 01/27/2019. I reviewed the case at multidisciplinary tumor conference. Plan to continue postoperative care. Await biopsy of the liver. If it is negative, I will plan for adjuvant chemotherapy with Gemzar and Xeloda after she completely recovers. I will plan for a followup visit at my office in 3 to 4 weeks. 2. Leukocytosis, reactive. Infectious Disease has been consulted. Fever has improved. She did have a CT scan on 02/01/2019 which revealed gas and fluid collection at the gallbladder fossa. There is also evidence of hepatic cirrhosis. Continue supportive care management. 3. Cirrhosis of the liver. Continue supportive care. CANDIS OLEARY MD DR: IDALIA/nts JOB#: [id number] / [id number]
[2019-02-05] VITALS (17 sets, daily range): BP systolic 93–142; BP diastolic 52–88
[2019-02-05] MEDS: MEROPENEM 500 MG in IV NORMAL SALINE 50ML 50 ML IV SCH ×4 (00:11→19:55)
[2019-02-05] MEDS: HYDROmorphone 2 MG/ML VIAL IV PRN ×2 (01:15→22:04)
[2019-02-05 06:16] LABS: CALCIUM 7.5 mg/dL (8.5-10.1); CREATININE 0.6 mg/dL (0.6-1.0); GFR 102.7; MAGNESIUM 1.8 mg/dL (1.8-2.4); PHOSPHORUS 2.4 mg/dL (2.6-4.7); POTASSIUM 4.1 mmol/L (3.5-5.1)
[2019-02-05 06:25] LABS: BASO # 0.1 x10^3/uL (0.0-0.2); BASO % 0 % (0-3); EOS # 0.1 x10^3/uL (0.0-0.7); EOS % 0 % (0-3); HEMATOCRIT 29.1 % (36.0-47.0); HEMOGLOBIN 9.9 g/dL (12.0-15.5); LYMPH # 2.4 x10^3/uL (1.0-4.8); LYMPH % 10 % (24-48); MEAN CORPUSCULAR HEMOGLOBIN 33 pg (25-35); MEAN CORPUSCULAR HGB CONC 34 g/dL (31-37); MEAN CORPUSCULAR VOLUME 97 fL (79-100); MONO # 2.2 x10^3/uL (0.0-1.1); MONO % 9 % (0-9); NEUT # 19.6 x10^3/uL (1.8-7.7); NEUT % 81 % (31-73); PLATELET COUNT 260 x10^3/uL (140-400); RED BLOOD COUNT 2.99 x10^6/uL (3.50-5.40); RED CELL DISTRIBUTION WIDTH 13.5 % (11.5-14.5); WHITE BLOOD COUNT 24.4 x10^3/uL (4.0-11.0)
--- NOTE | 2019-02-05 07:33 | PDOC ---
Infectious Disease Note Subjective Subjective min response last ativan 0400 per nursing ROS ROS Unable to obtain Vital Sign Vital Signs Vital Signs Date Time Temp Pulse Resp B/P (MAP) Pulse Ox O2 Delivery O2 Flow Rate FiO2 02/05/19 06:00 104 13 105/65 (78) 94 Room Air 02/05/19 04:00 98.9 98.9 02/04/19 18:17 2.0 Physical Exam PHYSICAL EXAM GENERAL: min coop. Does not appear toxic and looks comfortable HEENT: Normocephalic, atraumatic, anicteric. PERRL. mouth dry with ? dentition NECK: Supple, no JVD, no tenderness. LUNGS: Clear anteriorly. HEART: S1, S2. No gallops or murmurs. ABDOMEN: Soft, mildly distended. Abd wound is clean. SEA drains intact with no drainage - not holding suction. Decreased Bowel sounds present. Wound is dressed Less tenderness present. G tube to suction EXTREMITIES: No edema, no cyanosis. mitts DERMATOLOGIC: Warm, dry. No generalized rash. GENITOURINARY: No Moreno. CENTRAL NERVOUS SYSTEM: moves all 4 extremities. IVs: RIJ - clean Labs Lab Laboratory Tests Test 02/05/19 05:45 White Blood Count 24.4 x10^3/uL (4.0-11.0) Red Blood Count 2.99 x10^6/uL (3.50-5.40) Hemoglobin 9.9 g/dL (12.0-15.5) Hematocrit 29.1 % (36.0-47.0) Mean Corpuscular Volume 97 fL (79-100) Mean Corpuscular Hemoglobin 33 pg (25-35) Mean Corpuscular Hemoglobin Concent 34 g/dL (31-37) Red Cell Distribution Width 13.5 % (11.5-14.5) Platelet Count 260 x10^3/uL (140-400) Neutrophils (%) (Auto) 81 % (31-73) Lymphocytes (%) (Auto) 10 % (24-48) Monocytes (%) (Auto) 9 % (0-9) Eosinophils (%) (Auto) 0 % (0-3) Basophils (%) (Auto) 0 % (0-3) Neutrophils # (Auto) 19.6 x10^3/uL (1.8-7.7) Lymphocytes # (Auto) 2.4 x10^3/uL (1.0-4.8) Monocytes # (Auto) 2.2 x10^3/uL (0.0-1.1) Eosinophils # (Auto) 0.1 x10^3/uL (0.0-0.7) Basophils # (Auto) 0.1 x10^3/uL (0.0-0.2) Sodium Level 135 mmol/L (136-145) Potassium Level 4.1 mmol/L (3.5-5.1) Chloride Level 103 mmol/L (98-107) Carbon Dioxide Level 26 mmol/L (21-32) Anion Gap 6 (6-14) Blood Urea Nitrogen 16 mg/dL (7-20) Creatinine 0.6 mg/dL (0.6-1.0) Estimated GFR (Cockcroft-Gault) 102.7 Glucose Level 121 mg/dL (70-99) Calcium Level 7.5 mg/dL (8.5-10.1) Phosphorus Level 2.4 mg/dL (2.6-4.7) Magnesium Level 1.8 mg/dL (1.8-2.4) Micro Impression: Gas and fluid collection at the gallbladder fossa. Correlate for possibility of abscess. Catheter drains are noted coursing through the anterior aspect of this collection. Hepatic cirrhosis or other fibrotic process. Bilateral pleural effusions and adjacent bibasilar atelectasis. Pelvic free fluid is present. Stomach is distended with fluid. Objective Assessment 1. Fever - resolved UA - clean. 2. Leukocytosis - better- today - procal with mild elevation 02/04- previous lactic nml. ? Ileus - small BM 2 days ago per nursing. ? reactive - fever better CTA and LE dopplers without acute process 3. Status post Whipple's 01/27 - CT as above - epidural out but on [employer] 4. Pancreatic CA 5. Encephalopathy - ? metabolic 6. History of hepatitis C. 7. History of bilateral mastectomy. 8. Chronic obstructive pulmonary disease. 8. Peripheral neuropathy. 9. ETOH abuse and h/o anxiety. Plan Plan of Care Discont Zosyn (02/01 - 02/04) and begin Meropenem 02/04 D/c'd Zyvox 02/04 Cont Micafungin 02/01 Electrolyte abnormalities per primary f/u bc and urine c/s f/u labs in am and cults maintain aspiration precautions If no improvement in mental status may need CT head but nursing states she is starting to rest better so maybe related to sleep deficiency D/w nursing SCOTT REYEZ MD Feb 05, 2019 07:33
[2019-02-05] MEDS: IPRATRPIUM/ALBUTEROL 0.5/2.5MG 3 ML NEBU. NEB SCH ×4 (08:03→20:00)
[2019-02-05] MEDS: BUDESONIDE 0.5 MG/2 ML NEBU. NEB SCH ×2 (08:03→20:00)
[2019-02-05] MEDS: DOCUSATE SODIUM 100 MG CAPSULE. PO SCH (09:10)
[2019-02-05] MEDS: THIAMINE 100 MG TABLET. PO SCH (09:10)
[2019-02-05] MEDS: FAMOTIDINE 20 MG/2 ML VIAL IVP SCH ×2 (09:11→22:03)
[2019-02-05] MEDS: METOPROLOL TART IMMED RELEASE 25 MG TABLET. PO SCH ×2 (09:11→22:05)
[2019-02-05] MEDS: PANTOPRAZOLE 40 MG TABLET.DR. PO SCH (09:11)
[2019-02-05] MEDS: HEPARIN for SUB-Q USE 5,000 UNIT/ML VIAL. SQ SCH ×2 (09:12→22:13)
--- NOTE | 2019-02-05 10:15 | PDOC ---
SURGICAL PROGRESS NOTE Subjective confusion restless pulling at drains eating Vital Signs Vital Signs Date Time Temp Pulse Resp B/P (MAP) Pulse Ox O2 Delivery O2 Flow Rate FiO2 02/05/19 09:13 107 116/66 02/05/19 09:00 20 97 Room Air 02/05/19 08:00 98.2 98.2 02/04/19 18:17 2.0 I&O Intake and Output 02/05/19 07:00 Intake Total 2515.53 ml Output Total 1510 ml Balance 1005.53 ml Intake Oral 610 ml IV Total 1905.53 ml Output Urine Total 750 ml Drainage Total 760 ml # Voids 5 PATIENT HAS A LEVI: Yes General: Alert, Oriented X3, Cooperative, No acute distress Abdomen: Soft, Other (ND, drains serous) Labs Laboratory Tests Test 02/04/19 05:20 02/05/19 05:45 White Blood Count 29.7 x10^3/uL (4.0-11.0) 24.4 x10^3/uL (4.0-11.0) Red Blood Count 3.00 x10^6/uL (3.50-5.40) 2.99 x10^6/uL (3.50-5.40) Hemoglobin 9.9 g/dL (12.0-15.5) 9.9 g/dL (12.0-15.5) Hematocrit 29.0 % (36.0-47.0) 29.1 % (36.0-47.0) Mean Corpuscular Volume 97 fL (79-100) 97 fL (79-100) Mean Corpuscular Hemoglobin 33 pg (25-35) 33 pg (25-35) Mean Corpuscular Hemoglobin Concent 34 g/dL (31-37) 34 g/dL (31-37) Red Cell Distribution Width 13.5 % (11.5-14.5) 13.5 % (11.5-14.5) Platelet Count 322 x10^3/uL (140-400) 260 x10^3/uL (140-400) Neutrophils (%) (Auto) 80 % (31-73) 81 % (31-73) Lymphocytes (%) (Auto) 9 % (24-48) 10 % (24-48) Monocytes (%) (Auto) 10 % (0-9) 9 % (0-9) Eosinophils (%) (Auto) 0 % (0-3) 0 % (0-3) Basophils (%) (Auto) 0 % (0-3) 0 % (0-3) Neutrophils # (Auto) 23.8 x10^3/uL (1.8-7.7) 19.6 x10^3/uL (1.8-7.7) Lymphocytes # (Auto) 2.7 x10^3/uL (1.0-4.8) 2.4 x10^3/uL (1.0-4.8) Monocytes # (Auto) 3.0 x10^3/uL (0.0-1.1) 2.2 x10^3/uL (0.0-1.1) Eosinophils # (Auto) 0.1 x10^3/uL (0.0-0.7) 0.1 x10^3/uL (0.0-0.7) Basophils # (Auto) 0.1 x10^3/uL (0.0-0.2) 0.1 x10^3/uL (0.0-0.2) Sodium Level 131 mmol/L (136-145) 135 mmol/L (136-145) Potassium Level 3.9 mmol/L (3.5-5.1) 4.1 mmol/L (3.5-5.1) Chloride Level 97 mmol/L (98-107) 103 mmol/L (98-107) Carbon Dioxide Level 28 mmol/L (21-32) 26 mmol/L (21-32) Anion Gap 6 (6-14) 6 (6-14) Blood Urea Nitrogen 14 mg/dL (7-20) 16 mg/dL (7-20) Creatinine 0.6 mg/dL (0.6-1.0) 0.6 mg/dL (0.6-1.0) Estimated GFR (Cockcroft-Gault) 102.7 102.7 Glucose Level 169 mg/dL (70-99) 121 mg/dL (70-99) Calcium Level 7.5 mg/dL (8.5-10.1) 7.5 mg/dL (8.5-10.1) Phosphorus Level 2.1 mg/dL (2.6-4.7) 2.4 mg/dL (2.6-4.7) Magnesium Level 1.7 mg/dL (1.8-2.4) 1.8 mg/dL (1.8-2.4) Triglycerides Level 70 mg/dL (0-150) Procalcitonin 0.53 ng/mL (0.00-0.10) Laboratory Tests Test 02/05/19 05:45 White Blood Count 24.4 x10^3/uL (4.0-11.0) Red Blood Count 2.99 x10^6/uL (3.50-5.40) Hemoglobin 9.9 g/dL (12.0-15.5) Hematocrit 29.1 % (36.0-47.0) Mean Corpuscular Volume 97 fL (79-100) Mean Corpuscular Hemoglobin 33 pg (25-35) Mean Corpuscular Hemoglobin Concent 34 g/dL (31-37) Red Cell Distribution Width 13.5 % (11.5-14.5) Platelet Count 260 x10^3/uL (140-400) Neutrophils (%) (Auto) 81 % (31-73) Lymphocytes (%) (Auto) 10 % (24-48) Monocytes (%) (Auto) 9 % (0-9) Eosinophils (%) (Auto) 0 % (0-3) Basophils (%) (Auto) 0 % (0-3) Neutrophils # (Auto) 19.6 x10^3/uL (1.8-7.7) Lymphocytes # (Auto) 2.4 x10^3/uL (1.0-4.8) Monocytes # (Auto) 2.2 x10^3/uL (0.0-1.1) Eosinophils # (Auto) 0.1 x10^3/uL (0.0-0.7) Basophils # (Auto) 0.1 x10^3/uL (0.0-0.2) Sodium Level 135 mmol/L (136-145) Potassium Level 4.1 mmol/L (3.5-5.1) Chloride Level 103 mmol/L (98-107) Carbon Dioxide Level 26 mmol/L (21-32) Anion Gap 6 (6-14) Blood Urea Nitrogen 16 mg/dL (7-20) Creatinine 0.6 mg/dL (0.6-1.0) Estimated GFR (Cockcroft-Gault) 102.7 Glucose Level 121 mg/dL (70-99) Calcium Level 7.5 mg/dL (8.5-10.1) Phosphorus Level 2.4 mg/dL (2.6-4.7) Magnesium Level 1.8 mg/dL (1.8-2.4) Assessment/Plan supportive care PEDRITO TAPIA APRN Feb 05, 2019 10:15
--- NOTE | 2019-02-05 10:17 | PDOC ---
[facility] PROGRESS NOTE Chief Complaint Chief Complaint Pancreatic mass H/o hep c Hepatitis Alcoholism Bilateral Mastectomy Hypokalemia Acute pancreatitis 02/05 Hyperlipidemia COPD Periperal neuropathy Cirrhosis Anxiety History of Present Illness History of Present Illness 02/05/19 Pt was seen and examined in the ICU Was sleeping Nurses reported that she was agitated and confused overnight 02/04/19 Pt seen and examined in ICU Pt agitated and trying to get out of bed She denies any pain but wants Ativan DW RN and daughter 02/03/19 Pt seen and examined in ICU. Pt is lethargic and unable to open her eyes DW RN 02/02/19 Pt seen and examined in ICU Consulted Dr. Levin by phone in pt's room, confirmed central line can be placed despite previous mastectomy. Pt is lethargic and unable to open her eyes Pushing [employer] Dilaudid LANG RN and daughter and grandson 02/01/19 Pt seen/examined in the ICU Pt is awake, but weak with nausea and pain Chart Reviewed DW RN and family 01/31/19 Pt seen and examined in the ICU Pt is awake/talking and able to tolerate PO meds DW RN Chart Reviewed 9�13�2019 Patient seen and examined in the ICU Patient's daughter still present in his good support for her (Griselda) Discussed with RN Chart reviewed 01/29/19 Pt seen and examined in ICU at bedside s/p Whipple SEA drain at RLQ intact Pt sleeping upon entry and with daughter today- appears in NAD Daughter says pt is alcoholic; she also says pt did not sleep well last night LANG RN Vitals/I&O Vitals/I&O: Vital Signs Date Time Temp Pulse Resp B/P (MAP) Pulse Ox O2 Delivery O2 Flow Rate FiO2 02/05/19 10:00 120 21 142/88 (106) 96 Room Air 02/05/19 08:00 98.2 98.2 02/04/19 18:17 2.0 I & O 02/04/19 02/04/19 02/05/19 15:00 23:00 07:00 Intake Total 302.5 ml 1352 ml 861.03 ml Output Total 250 ml 1060 ml 200 ml Balance 52.5 ml 292 ml 661.03 ml Physical Exam Physical Exam: GENERAL: min coop. Does not appear toxic and looks comfortable HEENT: Normocephalic, atraumatic, anicteric. PERRL. mouth dry with ? dentition NECK: Supple, no JVD, no tenderness. LUNGS: Clear anteriorly. HEART: S1, S2. No gallops or murmurs. ABDOMEN: Soft, mildly distended. Abd wound is clean. SEA drains intact with no drainage - not holding suction. Decreased Bowel sounds present. Wound is dressed Less tenderness present. G tube to suction EXTREMITIES: No edema, no cyanosis. mitts DERMATOLOGIC: Warm, dry. No generalized rash. GENITOURINARY: No [place]. CENTRAL NERVOUS SYSTEM: moves all 4 extremities. IVs: RIJ - clean General: Alert, Oriented X3, Cooperative, No acute distress Heart: Regular rate, Normal S1 Lungs: Clear Abdomen: Soft, Other (ND, drains serous) Extremities: No clubbing, No cyanosis, No tenderness/swelling Skin: No rashes, No breakdown Labs Labs: Laboratory Tests Test 02/05/19 05:45 White Blood Count 24.4 x10^3/uL (4.0-11.0) Red Blood Count 2.99 x10^6/uL (3.50-5.40) Hemoglobin 9.9 g/dL (12.0-15.5) Hematocrit 29.1 % (36.0-47.0) Mean Corpuscular Volume 97 fL (79-100) Mean Corpuscular Hemoglobin 33 pg (25-35) Mean Corpuscular Hemoglobin Concent 34 g/dL (31-37) Red Cell Distribution Width 13.5 % (11.5-14.5) Platelet Count 260 x10^3/uL (140-400) Neutrophils (%) (Auto) 81 % (31-73) Lymphocytes (%) (Auto) 10 % (24-48) Monocytes (%) (Auto) 9 % (0-9) Eosinophils (%) (Auto) 0 % (0-3) Basophils (%) (Auto) 0 % (0-3) Neutrophils # (Auto) 19.6 x10^3/uL (1.8-7.7) Lymphocytes # (Auto) 2.4 x10^3/uL (1.0-4.8) Monocytes # (Auto) 2.2 x10^3/uL (0.0-1.1) Eosinophils # (Auto) 0.1 x10^3/uL (0.0-0.7) Basophils # (Auto) 0.1 x10^3/uL (0.0-0.2) Sodium Level 135 mmol/L (136-145) Potassium Level 4.1 mmol/L (3.5-5.1) Chloride Level 103 mmol/L (98-107) Carbon Dioxide Level 26 mmol/L (21-32) Anion Gap 6 (6-14) Blood Urea Nitrogen 16 mg/dL (7-20) Creatinine 0.6 mg/dL (0.6-1.0) Estimated GFR (Cockcroft-Gault) 102.7 Glucose Level 121 mg/dL (70-99) Calcium Level 7.5 mg/dL (8.5-10.1) Phosphorus Level 2.4 mg/dL (2.6-4.7) Magnesium Level 1.8 mg/dL (1.8-2.4) Review of Systems Review of Systems: No wheezing, no shortness of breath No headache, no altered mental status Assessment and Plan Assessmemt and Plan Assessment Pancreatic mass Leukocytosis (steroids) H/o hep c Hepatitis Alcoholism Bilateral Mastectomy Hypokalemia Acute pancreatitis 02/05 Hyperlipidemia COPD Peripheral neuropathy Cirrhosis Anxiety Plan ICU monitoring Care for SEA tubes and G tube Wound Care Surgery supportive care TPN Ativan 2mg POQ 4 PRN Alcohol withdrawal protocol DVT prophylaxis IV Zosyn, Linezolid, Micafungin Evaluation for rehab Full code Comment Review of Relevant I have reviewed the following items dante (where applicable) has been applied. Medications: Current Medications Medications (Trade) Dose Ordered Sig/Deandre Route PRN Reason Start Time Stop Time Status Last Admin Dose Admin Lorazepam (Ativan) 1 mg PRN Q6HRS PRN PO ANXIETY / AGITATION 02/04/19 13:00 02/04/19 18:17 Sodium Chloride 120 meq/Sodium Phosphate 24 mmol/ Potassium Chloride 50 meq/ Magnesium Sulfate 13 meq/Calcium Gluconate 10 meq/ Multivitamins 10 ml/Chromium/ Copper/Manganese/ Seleni/Zn 1 ml/ Total Parenteral Nutrition/Amino Acids/Dextrose/ Fat Emulsion Intravenous 1,512 ml @ 63 mls/hr TPN CONT IV 02/04/19 22:00 02/05/19 21:59 02/04/19 22:20 Sodium Phosphate 15 mmol/Dextrose 255 ml @ 63.75 mls/ hr 1X ONCE IV 02/04/19 14:00 02/04/19 17:59 DC 02/04/19 14:23 Lorazepam (Ativan Inj) 2 mg PRN Q4HRS PRN IV ANXIETY / AGITATION (USE 2ND) 02/04/19 20:15 02/04/19 20:46 NADIA GREENE III DO Feb 05, 2019 10:17
[2019-02-05] MEDS: MICAFUNGIN 100 MG in IV DEXTROSE 5% 100ML 100 ML IV SCH (11:04)
[2019-02-05] MEDS ORDERED: SODIUM PHOSPHATE 20 MMOL in IV DEXTROSE 5% 250 ML IV ONE (12:00)
--- NOTE | 2019-02-05 12:33 | PDOC ---
PROGRESS NOTES Subjective Subjective HPI - f/u of T2, N1 pancreatic cancer ROS - confused Objective Objective Vital Signs Date Time Temp Pulse Resp B/P (MAP) Pulse Ox O2 Delivery O2 Flow Rate FiO2 02/05/19 12:15 97 Room Air 02/05/19 12:00 98.6 105 20 93/52 (66) 98.6 02/05/19 12:00 2.0 Intake and Output 02/05/19 07:00 Intake Total 2515.53 ml Output Total 1510 ml Balance 1005.53 ml Intake Oral 610 ml IV Total 1905.53 ml Output Urine Total 750 ml Drainage Total 760 ml # Voids 5 Physical Exam Heart: Regular rate General: No acute distress Assessment Assessment IMPRESSION AND PLAN: 1. T2, N1 pancreatic cancer. Liver biopsy is still pending. She underwent Whipple surgery on 01/27/2019. I reviewed the case at multidisciplinary tumor conference. Plan to continue postoperative care. Await biopsy of the liver. If it is negative, I will plan for adjuvant chemotherapy with Gemzar and Xeloda after she completely recovers. I will plan for a followup visit at my office in 3 to 4 weeks. I d/w RN 2. Leukocytosis, reactive. Infectious Disease has been consulted. Fever has improved. She did have a CT scan on 02/01/2019 which revealed gas and fluid collection at the gallbladder fossa. There is also evidence of hepatic cirrhosis. Continue supportive care management. WBC 24.4. 3. Cirrhosis of the liver. Continue supportive care. Comment Review of Relevant I have reviewed the following items dante (where applicable) has been applied. Labs Laboratory Tests Test 02/04/19 05:20 02/04/19 08:30 02/05/19 05:45 White Blood Count 29.7 x10^3/uL (4.0-11.0) 24.4 x10^3/uL (4.0-11.0) Red Blood Count 3.00 x10^6/uL (3.50-5.40) 2.99 x10^6/uL (3.50-5.40) Hemoglobin 9.9 g/dL (12.0-15.5) 9.9 g/dL (12.0-15.5) Hematocrit 29.0 % (36.0-47.0) 29.1 % (36.0-47.0) Mean Corpuscular Volume 97 fL (79-100) 97 fL (79-100) Mean Corpuscular Hemoglobin 33 pg (25-35) 33 pg (25-35) Mean Corpuscular Hemoglobin Concent 34 g/dL (31-37) 34 g/dL (31-37) Red Cell Distribution Width 13.5 % (11.5-14.5) 13.5 % (11.5-14.5) Platelet Count 322 x10^3/uL (140-400) 260 x10^3/uL (140-400) Neutrophils (%) (Auto) 80 % (31-73) 81 % (31-73) Lymphocytes (%) (Auto) 9 % (24-48) 10 % (24-48) Monocytes (%) (Auto) 10 % (0-9) 9 % (0-9) Eosinophils (%) (Auto) 0 % (0-3) 0 % (0-3) Basophils (%) (Auto) 0 % (0-3) 0 % (0-3) Neutrophils # (Auto) 23.8 x10^3/uL (1.8-7.7) 19.6 x10^3/uL (1.8-7.7) Lymphocytes # (Auto) 2.7 x10^3/uL (1.0-4.8) 2.4 x10^3/uL (1.0-4.8) Monocytes # (Auto) 3.0 x10^3/uL (0.0-1.1) 2.2 x10^3/uL (0.0-1.1) Eosinophils # (Auto) 0.1 x10^3/uL (0.0-0.7) 0.1 x10^3/uL (0.0-0.7) Basophils # (Auto) 0.1 x10^3/uL (0.0-0.2) 0.1 x10^3/uL (0.0-0.2) Sodium Level 131 mmol/L (136-145) 135 mmol/L (136-145) Potassium Level 3.9 mmol/L (3.5-5.1) 4.1 mmol/L (3.5-5.1) Chloride Level 97 mmol/L (98-107) 103 mmol/L (98-107) Carbon Dioxide Level 28 mmol/L (21-32) 26 mmol/L (21-32) Anion Gap 6 (6-14) 6 (6-14) Blood Urea Nitrogen 14 mg/dL (7-20) 16 mg/dL (7-20) Creatinine 0.6 mg/dL (0.6-1.0) 0.6 mg/dL (0.6-1.0) Estimated GFR (Cockcroft-Gault) 102.7 102.7 Glucose Level 169 mg/dL (70-99) 121 mg/dL (70-99) Calcium Level 7.5 mg/dL (8.5-10.1) 7.5 mg/dL (8.5-10.1) Phosphorus Level 2.1 mg/dL (2.6-4.7) 2.4 mg/dL (2.6-4.7) Magnesium Level 1.7 mg/dL (1.8-2.4) 1.8 mg/dL (1.8-2.4) Triglycerides Level 70 mg/dL (0-150) Procalcitonin 0.53 ng/mL (0.00-0.10) Body Fluid Amylase 22 U/L (.) Laboratory Tests Test 02/05/19 05:45 White Blood Count 24.4 x10^3/uL (4.0-11.0) Red Blood Count 2.99 x10^6/uL (3.50-5.40) Hemoglobin 9.9 g/dL (12.0-15.5) Hematocrit 29.1 % (36.0-47.0) Mean Corpuscular Volume 97 fL (79-100) Mean Corpuscular Hemoglobin 33 pg (25-35) Mean Corpuscular Hemoglobin Concent 34 g/dL (31-37) Red Cell Distribution Width 13.5 % (11.5-14.5) Platelet Count 260 x10^3/uL (140-400) Neutrophils (%) (Auto) 81 % (31-73) Lymphocytes (%) (Auto) 10 % (24-48) Monocytes (%) (Auto) 9 % (0-9) Eosinophils (%) (Auto) 0 % (0-3) Basophils (%) (Auto) 0 % (0-3) Neutrophils # (Auto) 19.6 x10^3/uL (1.8-7.7) Lymphocytes # (Auto) 2.4 x10^3/uL (1.0-4.8) Monocytes # (Auto) 2.2 x10^3/uL (0.0-1.1) Eosinophils # (Auto) 0.1 x10^3/uL (0.0-0.7) Basophils # (Auto) 0.1 x10^3/uL (0.0-0.2) Sodium Level 135 mmol/L (136-145) Potassium Level 4.1 mmol/L (3.5-5.1) Chloride Level 103 mmol/L (98-107) Carbon Dioxide Level 26 mmol/L (21-32) Anion Gap 6 (6-14) Blood Urea Nitrogen 16 mg/dL (7-20) Creatinine 0.6 mg/dL (0.6-1.0) Estimated GFR (Cockcroft-Gault) 102.7 Glucose Level 121 mg/dL (70-99) Calcium Level 7.5 mg/dL (8.5-10.1) Phosphorus Level 2.4 mg/dL (2.6-4.7) Magnesium Level 1.8 mg/dL (1.8-2.4) Microbiology 02/01/19 Urine Culture - Final, Complete 02/01/19 Urine Culture Result 1 ([facility]ON) - Final, Complete 02/01/19 Blood Culture - Preliminary, Resulted NO GROWTH AFTER 4 DAYS Medications Current Medications Ondansetron HCl (Zofran) 4 mg PRN Q6HRS PRN IV NAUSEA/VOMITING; Start 01/27/19 at 07:00; Stop 01/28/19 at 06:59; Status DC Fentanyl Citrate (Fentanyl 2ml Vial) 25 mcg PRN Q5MIN PRN IV MILD PAIN 1-3; Start 01/27/19 at 07:00; Stop 01/28/19 at 06:59; Status DC Fentanyl Citrate (Fentanyl 2ml Vial) 50 mcg PRN Q5MIN PRN IV MODERATE TO SEVERE PAIN; Start 01/27/19 at 07:00; Stop 01/28/19 at 06:59; Status DC Morphine Sulfate (Morphine Sulfate) 1 mg PRN Q10MIN PRN IV SEVERE PAIN 7-10; Start 01/27/19 at 07:00; Stop 01/28/19 at 06:59; Status DC Ringer's Solution 1,000 ml @ 30 mls/hr Q24H IV Last administered on 01/27/19at 08:15; Start 01/27/19 at 07:00; Stop 01/27/19 at 18:59; Status DC Hydromorphone HCl (Dilaudid) 0.5 mg PRN Q10MIN PRN IV SEV PAIN, Second choice; Start 01/27/19 at 07:00; Stop 01/28/19 at 06:59; Status DC Prochlorperazine Edisylate (Compazine) 5 mg PACU PRN PRN IV NAUSEA, MRX1 Last administered on 01/28/19at 03:33; Start 01/27/19 at 07:00; Stop 01/28/19 at 06:59; Status DC Cefoxitin Sodium (Mefoxin) 2 gm 1X PREOP PRN IVP SURGERY Last administered on 01/27/19at 12:18; Start 01/27/19 at 06:00; Stop 01/28/19 at 10:13; Status DC Sevoflurane (Ultane) 90 ml STK-MED ONCE IH ; Start 01/27/19 at 09:11; Stop 01/27/19 at 09:11; Status DC Rocuronium Tracy (Zemuron) 50 mg STK-MED ONCE .ROUTE ; Start 01/27/19 at 09:11 ; Stop 01/27/19 at 09:11; Status DC Fentanyl Citrate (Fentanyl 2ml Vial) 100 mcg STK-MED ONCE .ROUTE ; Start 01/27/19 at 09:11; Stop 01/27/19 at 09:11; Status DC Neostigmine Methylsulfate (Neostigmine Methylsulfate) 5 mg STK-MED ONCE .ROUTE ; Start 01/27/19 at 09:11; Stop 01/27/19 at 09:11; Status DC Midazolam HCl (Versed) 2 mg STK-MED ONCE .ROUTE ; Start 01/27/19 at 09:11; Stop 01/27/19 at 09:11; Status DC Glycopyrrolate (Robinul) 1 mg STK-MED ONCE .ROUTE ; Start 01/27/19 at 09:11; Stop 01/27/19 at 09:11; Status DC Phenylephrine HCl (Bret-Synephrine Inj) 10 mg STK-MED ONCE .ROUTE ; Start 01/27/19 at 09:11; Stop 01/27/19 at 09:12; Status DC Dexamethasone Sodium Phosphate (Decadron) 4 mg STK-MED ONCE .ROUTE ; Start 01/27/19 at 09:11; Stop 01/27/19 at 09:12; Status DC Ondansetron HCl (Zofran) 4 mg STK-MED ONCE .ROUTE ; Start 01/27/19 at 09:12; Stop 01/27/19 at 09:12; Status DC Lidocaine HCl (Lidocaine Pf 2% Vial) 5 ml STK-MED ONCE .ROUTE ; Start 01/27/19 at 09:12; Stop 01/27/19 at 09:12; Status DC Propofol 20 ml @ As Directed STK-MED ONCE IV ; Start 01/27/19 at 09:12; Stop 01/27/19 at 09:12; Status DC Sodium Chloride (Normal Saline Flush) 3 ml QSHIFT PRN IV AFTER MEDS AND BLOOD DRAWS; Start 01/27/19 at 09:30; Stop 02/03/19 at 09:09; Status DC Ibuprofen (Motrin) 400 mg PRN Q6HRS PRN PO MILD PAIN 1-3; Start 01/27/19 at 09:30 Naloxone HCl (Narcan) 0.4 mg PRN Q2MIN PRN IV SEE INSTRUCTIONS; Start 01/27/19 at 09:30; Stop 01/31/19 at 09:15; Status DC Sodium Chloride 1,000 ml @ 25 mls/hr Q24H IV ; Start 01/27/19 at 09:28; Stop 01/30/19 at 14:52; Status DC Ondansetron HCl (Zofran) 4 mg PRN Q6HRS PRN IV Nausea, 2nd Choice; Start at 09:30; Status Cancel Epinephrine HCl (EPINEPHrine SYRINGE) 1 mg STK-MED ONCE .ROUTE ; Start 01/27/19 at 10:15; Stop 01/27/19 at 10:16; Status DC Lidocaine HCl (Lidocaine Pf 2% Vial) 5 ml STK-MED ONCE .ROUTE ; Start 01/27/19 at 10:15; Stop 01/27/19 at 10:16; Status DC Ropivacaine (Naropin 0.5%) 20 ml STK-MED ONCE .ROUTE ; Start 01/27/19 at 10:17; Stop 01/27/19 at 10:18; Status DC Cellulose (Surgicel Hemostat 4x8) 1 each STK-MED ONCE .ROUTE Last administered on 01/27/19at 11:25; Start 01/27/19 at 11:24; Stop 01/27/19 at 11:25; Status DC Cellulose (Surgicel Hemostat 4x8) 1 each STK-MED ONCE .ROUTE Last administered on 01/27/19at 11:39; Start 01/27/19 at 11:38; Stop 01/27/19 at 11:38; Status DC Rocuronium Tracy (Zemuron) 50 mg STK-MED ONCE .ROUTE ; Start 01/27/19 at 12:09; Stop 01/27/19 at 12:09; Status DC Cefoxitin Sodium (Mefoxin) 2 gm 1X ONCE IVP Last administered on 01/27/19at 12:33; Start 01/27/19 at 12:30; Stop 01/27/19 at 12:31; Status DC Phenylephrine HCl (Bret-Synephrine Inj) 10 mg STK-MED ONCE .ROUTE ; Start 01/27/19 at 14:49; Stop 01/27/19 at 14:49; Status DC Sodium Chloride 35 ml/Fentanyl Citrate 250 mcg/ Ropivacaine 10 ml/ Epidural Dosage Infused (Pha) 50 ml @ 0 mls/hr CONT EPID ; Start 01/27/19 at 15:00; Status UNV Sodium Chloride 35 ml/Fentanyl Citrate 250 mcg/ Ropivacaine 10 ml/ Epidural Dosage Infused (Pha) 50 ml @ 0 mls/hr CONT PRN EPID SEE PROTOCOL TABLE Last administered on 01/28/19at 05:00; Start 01/27/19 at 15:00; Stop 01/28/19 at 08:11; Status DC Cefoxitin Sodium (Mefoxin) 2 gm 1X PREOP PRN IVP SURGERY Last administered on 01/27/19at 16:47; Start 01/27/19 at 15:15; Stop 01/28/19 at 10:13; Status DC Famotidine (Pepcid Vial) 20 mg BID IVP Last administered on 02/05/19at 09:13; Start 01/27/19 at 21:00 Enoxaparin Sodium (Lovenox 40mg Syringe) 40 mg Q24H SQ Last administered on 01/29/19at 12:24; Start 01/28/19 at 09:00; Stop 01/29/19 at 17:14; Status DC Sodium Chloride (Normal Saline Flush) 3 ml QSHIFT PRN IV AFTER MEDS AND BLOOD DRAWS; Start 01/27/19 at 15:45 Ringer's Solution 1,000 ml @ 100 mls/hr Q10H IV Last administered on 01/30/19at 03:20; Start 01/27/19 at 15:33; Stop 01/30/19 at 14:52; Status DC Naloxone HCl (Narcan) 0.4 mg PRN Q2MIN PRN IV SEE INSTRUCTIONS; Start 01/27/19 at 15:45 Sodium Chloride 1,000 ml @ 25 mls/hr Q24H IV ; Start 01/27/19 at 15:33; Stop 01/28/19 at 15:52; Status DC Ondansetron HCl (Zofran) 4 mg PRN Q6HRS PRN IV NAUESA, 1ST CHOICE Last administered on 02/01/19at 23:49; Start 01/27/19 at 15:45 Sodium Chloride 35 ml/Fentanyl Citrate 250 mcg/ Ropivacaine 10 ml/ Epidural Dosage Infused (Pha) 50 ml @ 0 mls/hr CONT PRN EPID SEE PROTOCOL TABLE Last administered on 02/01/19at 08:00; Start 01/28/19 at 08:15; Stop 02/01/19 at 10:03; Status DC Throat Lozenges (Cepacol Sore Throat Lozenge) 1 karthikeyan PRN Q2HRS PRN PO SORE THROAT Last administered on 01/28/19at 10:49; Start 01/28/19 at 09:30 Lorazepam (Ativan Inj) 0.5 mg PRN Q6HRS PRN IV ANXIETY / AGITATION Last administered on 01/31/19at 21:13; Start 01/28/19 at 12:30 Thiamine HCl 100 mg DAILY IM Last administered on 01/30/19at 09:12; Start 01/28/19 at 13:00; Stop 01/31/19 at 11:44; Status DC Lorazepam (Ativan Inj) 2 mg PRN Q1HR PRN IV For CIWA 8-14 Last administered on 02/05/19 10:10; Start 01/28/19 at 13:00 Lorazepam (Ativan Inj) 4 mg PRN Q1HR PRN IV For CIWA 15 or greater; Start 01/28/19 at 13:00 Haloperidol Lactate (Haldol Inj) 5 mg PRN Q4HRS PRN IVP Hallucinatns,Confusn,Delirium Last administered on 02/04/19at 23:47; Start 01/28/19 at 13:00 Diphenhydramine HCl (Benadryl) 25 mg PRN Q15MIN PRN IVP EPS symptoms 2'Haldol admin; Start 01/28/19 at 13:00 Lorazepam (Ativan Inj) 2 mg PRN Q15MIN PRN IV SEE COMMENTS Last administered on 02/05/19 01:12; Start 01/28/19 at 13:00 Lorazepam (Ativan Inj) 4 mg PRN Q15MIN PRN IV SEE COMMENTS Last administered on 02/05/19 02:29; Start 01/28/19 at 13:00 Albuterol/ Ipratropium (Duoneb) 3 ml RTQID NEB Last administered on 02/05/19 12:15; Start 01/28/19 at 13:00 Non-Formulary Medication (Fluticasone/ Umeclidin/ Vilanter (Trelegy Ellipta 100-62.5-25)) 1 puff DAILY PO ; Start 01/29/19 at 09:00; Status UNV Budesonide (Pulmicort) 0.5 mg RTBID NEB Last administered on 02/05/19at 08:03; Start 01/28/19 at 20:00 Albuterol Sulfate (Ventolin Neb Soln) 2.5 mg PRN Q6HRS PRN INH SHORTNESS OF BREATH; Start 01/28/19 at 14:00 Lorazepam (Ativan) 1 mg PRN Q6HRS PRN PO ANXIETY / AGITATION Last administered on 02/04/19 12:07; Start 01/28/19 at 14:00; Stop 02/04/19 at 12:58; Status DC Pantoprazole Sodium (Protonix) 40 mg DAILYAC PO Last administered on 02/05/19at 09:13; Start 01/28/19 at 16:30 Metoprolol Tartrate (Lopressor Vial) 12.5 mg BID IVP ; Start 01/29/19 at 21:00; Stop 01/29/19 at 14:50; Status DC Metoprolol Tartrate (Lopressor) 12.5 mg BID PO Last administered on 02/05/19 09:13; Start 01/29/19 at 17:00 Amino Acids/ Glycerin/ Electrolytes 1,000 ml @ 75 mls/hr [id number] IV Last administered on 02/02/19at 18:20; Start 01/30/19 at 11:30; Stop 02/02/19 at 21:59 ; Status DC Acetaminophen (Tylenol) 650 mg PRN Q6HRS PRN PO fever Last administered on 02/01/19 08:45; Start 01/31/19 at 01:15 Thiamine Mononitrate (Vitamin B-1) 100 mg DAILY PO Last administered on 02/05/19 09:13; Start 01/31/19 at 12:30 Heparin Sodium (Porcine) (Heparin Sodium) 5,000 unit Q12HR SQ Last administered on 02/05/19 09:13; Start 01/31/19 at 14:00 Piperacillin Sod/ Tazobactam Sod 3.375 gm/Sodium Chloride 50 ml @ 100 mls/hr Q6HRS IV Last administered on 02/04/19at 05:58; Start 02/01/19 at 10:00; Stop 02/04/19 at 06:32; Status DC Linezolid/Dextrose 300 ml @ 300 mls/hr Q12HR IV Last administered on 02/03/19at 21:30; Start 02/01/19 at 10:00; Stop 02/04/19 at 06:32; Status DC Micafungin Sodium 100 mg/Dextrose 100 ml @ 100 mls/hr Q24H IV Last administered on 02/05/19 11:04; Start 02/01/19 at 11:00 Sodium Chloride 35 ml/Fentanyl Citrate 250 mcg/ Ropivacaine 10 ml/ Epidural Dosage Infused (Pha) 50 ml @ 0 mls/hr CONT PRN EPID SEE PROTOCOL TABLE Last administered on 02/01/19 11:16; Start 02/01/19 at 10:15; Stop 02/04/19 at 09:09; Status DC Fentanyl Citrate (Fentanyl 2ml Vial) 25 mcg PRN Q5MIN PRN IV MILD PAIN 1-3; Start 02/01/19 at 14:00; Stop 02/02/19 at 13:59; Status DC Fentanyl Citrate (Fentanyl 2ml Vial) 50 mcg PRN Q5MIN PRN IV MODERATE TO SEVERE PAIN Last administered on 02/02/19at 09:09; Start 02/01/19 at 14:00; Stop 02/02/19 at 13:59; Status DC Hydromorphone HCl (Dilaudid) 1 mg PRN Q2HR PRN IV PAIN Last administered on 02/05/19at 01:15; Start 02/01/19 at 16:30 Ketorolac Tromethamine (Toradol 30mg Vial) 30 mg 1X ONCE IV Last administered on 02/01/19at 16:43; Start 02/01/19 at 16:30; Stop 02/01/19 at 16:31; Status DC Sodium Chloride 500 ml @ 500 mls/hr 1X ONCE IV Last administered on 02/02/19at 05:37; Start 02/02/19 at 05:30; Stop 02/02/19 at 06:29; Status DC Hydromorphone HCl 30 ml @ 0 mls/hr CONT PRN PRN IV PER PROTOCOL Last administered on 02/02/19at 10:32; Start 02/02/19 at 09:00; Stop 02/04/19 at 09:09; Status DC Info (Tpn Per Pharmacy) 1 each PRN DAILY PRN MC SEE COMMENTS Last administered on 02/04/19at 13:18; Start 02/02/19 at 10:00 Sodium Phosphate 20 mmol/Dextrose 256.6667 ml @ 64.167 m... 1X ONCE IV Last administered on 02/02/19at 14:38; Start 02/02/19 at 11:00; Stop 02/02/19 at 14:59; Status DC Furosemide (Lasix) 20 mg 1X ONCE IVP Last administered on 02/02/19at 16:16; Start 02/02/19 at 16:00; Stop 02/02/19 at 16:01; Status DC Lidocaine/Sodium Bicarbonate (Buffered Lidocaine 1%) 3 ml 1X ONCE INJ ; Start 02/02/19 at 14:00; Stop 02/02/19 at 14:05; Status DC Sodium Chloride 80 meq/Potassium Chloride 40 meq/ Sodium Phosphate 13.6 mmol/ Magnesium Sulfate 10 meq/Calcium Gluconate 10 meq/ Multivitamins 10 ml/Chromium/ Copper/Manganese/ Seleni/Zn 1 ml/ Total Parenteral Nutrition/Amino Acids/Dextrose/ Fat Emulsion Intravenous 1,512 ml @ 63 mls/hr TPN CONT IV Last administered on 02/02/19at 21:50; Start 02/02/19 at 22:00; Stop 02/03/19 at 21:59; Status DC Potassium Phosphate 15 mmol/ Sodium Chloride 255 ml @ 127.5 mls/ hr 1X ONCE IV Last administered on 02/03/19at 11:35; Start 02/03/19 at 11:00; Stop 02/03/19 at 12:59; Status DC Potassium Chloride (Klor-Con) 40 meq 1X ONCE PO Last administered on 02/03/19at 21:30; Start 02/03/19 at 11:30; Stop 02/03/19 at 11:31; Status DC Sodium Chloride 120 meq/Potassium Chloride 50 meq/ Sodium Phosphate 20.4 mmol/ Magnesium Sulfate 10 meq/Calcium Gluconate 10 meq/ Multivitamins 10 ml/Chromium/ Copper/Manganese/ Seleni/Zn 1 ml/ Total Parenteral Nutrition/Amino Acids/Dextrose/ Fat Emulsion Intravenous 1,512 ml @ 63 mls/hr TPN CONT IV Last administered on 02/03/19at 21:30; Start 02/03/19 at 22:00; Stop 02/04/19 at 21:59; Status DC Potassium Chloride (Klor-Con) 40 meq 1X ONCE PO Last administered on 02/03/19at 21:31; Start 02/03/19 at 21:00; Stop 02/03/19 at 21:01; Status DC Meropenem 500 mg/ Sodium Chloride 50 ml @ 100 mls/hr Q6HRS IV Last administered on 02/05/19at 12:23; Start 02/04/19 at 07:00 Oxycodone/ Acetaminophen (Percocet 5/325) 1 tab PRN Q4HRS PRN PO MODERATE TO SEVERE PAIN Last administered on 02/04/19at 18:17; Start 02/04/19 at 09:15 Docusate Sodium (Colace) 100 mg DAILY PO Last administered on 02/05/19at 09:13; Start 02/04/19 at 10:00 Iohexol (Omnipaque 350 Mg/ml) 75 ml 1X ONCE IV Last administered on 02/04/19at 12:30; Start 02/04/19 at 10:15; Stop 02/04/19 at 10:16; Status DC Info (CONTRAST GIVEN -- Rx MONITORING) 1 each PRN DAILY PRN MC SEE COMMENTS; Start 02/04/19 at 10:15; Stop 02/06/19 at 10:14 Lorazepam (Ativan) 1 mg PRN Q6HRS PRN PO ANXIETY / AGITATION Last administered on 02/04/19at 18:17; Start 02/04/19 at 13:00 Sodium Chloride 120 meq/Sodium Phosphate 24 mmol/ Potassium Chloride 50 meq/ Magnesium Sulfate 13 meq/Calcium Gluconate 10 meq/ Multivitamins 10 ml/Chromium/ Copper/Manganese/ Seleni/Zn 1 ml/ Total Parenteral Nutrition/Amino Acids/Dextrose/ Fat Emulsion Intravenous 1,512 ml @ 63 mls/hr TPN CONT IV Last administered on 02/04/19at 22:20; Start 02/04/19 at 22:00; Stop 02/05/19 at 21:59 Sodium Phosphate 15 mmol/Dextrose 255 ml @ 63.75 mls/ hr 1X ONCE IV Last administered on 02/04/19at 14:23; Start 02/04/19 at 14:00; Stop 02/04/19 at 17:59; Status DC Lorazepam (Ativan Inj) 2 mg PRN Q4HRS PRN IV ANXIETY / AGITATION (USE 2ND) Last administered on 02/04/19at 20:46; Start 02/04/19 at 20:15 Sodium Phosphate 20 mmol/Dextrose 256.6667 ml @ 64.167 m... 1X ONCE IV ; Start 02/05/19 at 12:00; Stop 02/05/19 at 15:59 Sodium Chloride 120 meq/Sodium Phosphate 27 mmol/ Potassium Chloride 50 meq/ Magnesium Sulfate 13 meq/Calcium Gluconate 10 meq/ Multivitamins 10 ml/Chromium/ Copper/Manganese/ Seleni/Zn 1 ml/ Total Parenteral Nutrition/Amino Acids/Dextrose/ Fat Emulsion Intravenous 1,512 ml @ 63 mls/hr TPN CONT IV ; Start 02/05/19 at 22:00; Stop 02/06/19 at 21:59 Active Scripts Active Lactulose 20 Gm/30 Ml Solution 20 Gm PO PRN TID PRN 30 Days Zofran (Ondansetron Hcl) 4 Mg Tablet 1 Tab PO Q6HRS 30 Days Hydrocodone-Apap 5-325 (Hydrocodone Bit/Acetaminophen) 1 Tab Tablet 1 Tab PO PRN Q6HRS PRN 6 Days Pantoprazole Sodium (Pantoprazole Sodium) 40 Mg Tablet.dr 40 Mg PO DAILYAC 30 Days Lorazepam 1 Mg Tablet 1 Mg PO PRN Q6HRS PRN 6 Days Reported Proair Hfa Inhaler (Albuterol Sulfate) 8.5 Gm Hfa.aer.ad 1 Puff INH PRN Q6HRS PRN Trelegy Ellipta 100-62.5-25 (Fluticasone/Umeclidin/Vilanter) 1 Each Blst.w.dev 1 Puff PO DAILY Vitals/I & O Vital Sign - Last 24 Hours 02/04/19 02/04/19 02/04/19 02/04/19 13:15 14:00 14:23 14:27 Pulse 98 Resp 16 B/P (MAP) 100/64 (76) Pulse Ox 97 97 97 97 O2 Delivery Room Air Room Air Room Air Room Air O2 Flow Rate 2.0 2.0 02/04/19 02/04/19 02/04/19 02/04/19 16:00 16:00 16:18 18:00 Temp 98.2 98.2 Pulse 96 112 Resp 18 16 B/P (MAP) 131/74 (93) 147/75 (99) Pulse Ox 97 97 96 O2 Delivery Room Air Room Air Room Air Room Air O2 Flow Rate 2.0 02/04/19 02/04/19 02/04/19 02/04/19 18:17 19:00 19:52 20:00 Pulse 98 Resp 26 24 B/P (MAP) 128/73 (91) Pulse Ox 97 94 O2 Delivery Room Air Room Air Room Air Room Air O2 Flow Rate 2.0 02/04/19 02/04/19 02/04/19 02/04/19 20:00 20:24 20:25 20:46 Temp 98.9 98.9 Pulse 110 110 Resp 32 B/P (MAP) 132/67 (88) 132/67 Pulse Ox 96 97 97 O2 Delivery Room Air Room Air Room Air 9/18/19 02/04/19 02/04/19 02/04/19 21:00 22:00 23:00 23:59 Pulse 100 111 102 Resp 20 16 22 B/P (MAP) 104/65 (78) 102/55 (71) 103/60 (74) Pulse Ox 94 95 96 O2 Delivery Room Air Room Air Room Air Room Air 02/05/19 02/05/19 02/05/19 02/05/19 00:00 01:00 01:15 01:50 Temp 98.7 98.7 Pulse 95 116 Resp 16 30 24 16 B/P (MAP) 102/58 (73) 95/56 (69) Pulse Ox 94 95 96 O2 Delivery Room Air Room Air Room Air Room Air 02/05/19 02/05/19 02/05/19 02/05/19 02:00 03:00 04:00 04:00 Temp 98.9 98.9 Pulse 98 105 96 Resp 18 16 16 B/P (MAP) 109/80 (90) 95/66 (76) 103/60 (74) Pulse Ox 96 96 94 O2 Delivery Room Air Room Air Room Air Room Air 02/05/19 02/05/19 02/05/19 02/05/19 05:00 06:00 07:00 08:00 Temp 98.9 98.9 Pulse 116 104 107 Resp 23 13 20 B/P (MAP) 141/67 (91) 105/65 (78) 95/63 (74) Pulse Ox 95 94 93 O2 Delivery Room Air Room Air Room Air Room Air 02/05/19 02/05/19 02/05/19 02/05/19 08:00 08:04 09:00 09:13 Temp 98.2 98.2 Pulse 107 117 107 Resp 20 20 B/P (MAP) 116/66 (83) 122/86 (98) 116/66 Pulse Ox 97 97 97 O2 Delivery Room Air Room Air Room Air 02/05/19 02/05/19 02/05/19 02/05/19 10:00 11:00 12:00 12:00 Temp 98.6 98.6 Pulse 120 111 105 Resp 21 20 20 B/P (MAP) 142/88 (106) 101/58 (72) 93/52 (66) Pulse Ox 96 96 96 O2 Delivery Room Air Room Air Room Air Room Air O2 Flow Rate 2.0 02/05/19 12:15 Pulse Ox 97 O2 Delivery Room Air Intake and Output 02/04/19 02/04/19 02/05/19 15:00 23:00 07:00 Intake Total 302.5 ml 1352 ml 861.03 ml Output Total 250 ml 1060 ml 200 ml Balance 52.5 ml 292 ml 661.03 ml CANDIS OLEARY MD Feb 05, 2019 12:33
[2019-02-05] MEDS: TPN PER PHARMACY MC PRN (13:14)
[2019-02-05] MEDS: oxyCODONE/APAP 5/325 1 TAB TABLET PO PRN (18:02)
[2019-02-05] MEDS ORDERED: TOTAL PARENTERAL NUTRITION IV SCH ×10 (22:00)
[2019-02-05] MEDS ORDERED: [UNRECOGNIZED DRUG - OTHER] IV SCH ×10 (22:00)
[2019-02-05] MEDS ORDERED: DEXTROSE 70% IV SCH ×10 (22:00)
[2019-02-05] MEDS ORDERED: AMINO ACID IV SCH ×10 (22:00)
[2019-02-06] VITALS (7 sets, daily range): BP systolic 101–126; BP diastolic 64–97
[2019-02-06] MEDS: MEROPENEM 500 MG in IV NORMAL SALINE 50ML 50 ML IV SCH ×4 (01:02→17:28)
[2019-02-06] MEDS: oxyCODONE/APAP 5/325 1 TAB TABLET PO PRN (01:33)
[2019-02-06] MEDS: HYDROmorphone 2 MG/ML VIAL IV PRN ×2 (03:22→09:11)
[2019-02-06 07:24] LABS: BASO % 0 % (0-3); EOS # 0.2 x10^3/uL (0.0-0.7); EOS % 1 % (0-3); HEMATOCRIT 29.3 % (36.0-47.0); HEMOGLOBIN 9.8 g/dL (12.0-15.5); LYMPH # 2.4 x10^3/uL (1.0-4.8); LYMPH % 9 % (24-48); MEAN CORPUSCULAR HEMOGLOBIN 33 pg (25-35); MEAN CORPUSCULAR HGB CONC 34 g/dL (31-37); MEAN CORPUSCULAR VOLUME 98 fL (79-100); MONO # 2.3 x10^3/uL (0.0-1.1); MONO % 9 % (0-9); NEUT # 21.3 x10^3/uL (1.8-7.7); NEUT % 81 % (31-73); PLATELET COUNT 276 x10^3/uL (140-400); RED BLOOD COUNT 2.99 x10^6/uL (3.50-5.40); RED CELL DISTRIBUTION WIDTH 13.6 % (11.5-14.5); WHITE BLOOD COUNT 26.2 x10^3/uL (4.0-11.0)
[2019-02-06] MEDS: PANTOPRAZOLE 40 MG TABLET.DR. PO SCH ×2 (07:30→09:05)
[2019-02-06 07:41] LABS: CALCIUM 7.8 mg/dL (8.5-10.1); CREATININE 0.7 mg/dL (0.6-1.0); GFR 85.9; POTASSIUM 4.6 mmol/L (3.5-5.1)
[2019-02-06] MEDS: IPRATRPIUM/ALBUTEROL 0.5/2.5MG 3 ML NEBU. NEB SCH ×4 (07:47→20:00)
[2019-02-06] MEDS: BUDESONIDE 0.5 MG/2 ML NEBU. NEB SCH ×2 (07:47→20:00)
[2019-02-06 07:53] LABS: MAGNESIUM 2.1 mg/dL (1.8-2.4); PHOSPHORUS 3.3 mg/dL (2.6-4.7)
--- NOTE | 2019-02-06 08:18 | PDOC ---
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 Anxiety History of Present Illness History of Present Illness Ms Iqbal is a 58yo F w/ PMHx COPD, hepatitis C, hyperlipidemia, cirrhosis of the liver, breast cancer (s/p bilateral mastectomy and adjuvant chemotherapy, partial hysterectomy), alcoholism, GERD, gallstones who presented to [facility] on 01/20/2019 with a 3-day history of right upper quadrant abdominal pain, nausea and vomiting. Ultrasound of the abdomen on 01/20/2019 revealed dilated pancreatic and common bile duct with moderately distended gallbladder. CT scan of the abdomen and pelvis on 01/21/2019 revealed a 2.8 cm mass in the head of the pancreas with no lymphadenopathy. MRCP on 01/21/2019 revealed a 2 cm mass at the head of the pancreas causing obstruction. She underwent an attempted ERCP, but was unable to undergo the procedure as she had taken something by mouth prior to the procedure. She underwent Whipple procedure on 01/27/[address] Levin. She underwent pyloric sparing pancreatic gastrostomy, hepaticojejunostomy, G tube placement and liver biopsy. There is evidence of invasive pancreatic adenocarcinoma, well to moderately differentiated involving the vascular groove soft tissue resection margin. Two out of 17 lymph nodes are positive. Liver biopsy still pending. She has been confused for a prolonged period of time now. Transferred from ICU 02/05/2019. Her daughter, bedside relates to me some family dysfunction particularly as she was not raised by her mother. Patient very agitated this morning, calmed with pain medications. 02/05/19 Pt was seen and examined in the ICU Was sleeping Nurses reported that she was agitated and confused overnight 02/04/19 Pt seen and examined in ICU Pt agitated and trying to get out of bed She denies any pain but wants Ativan DW RN and daughter 02/03/19 Pt seen and examined in ICU. Pt is lethargic and unable to open her eyes LANG RN 02/02/19 Pt seen and examined in ICU Consulted Dr. Levin by phone in pt's room, confirmed central line can be placed despite previous mastectomy. Pt is lethargic and unable to open her eyes Pushing LIVE OUT NANNY Dilaudid LANG RN and daughter and grandson 02/01/19 Pt seen/examined in the ICU Pt is awake, but weak with nausea and pain Chart Reviewed DW RN and family 01/31/19 Pt seen and examined in the ICU Pt is awake/talking and able to tolerate PO meds DW RN Chart Reviewed 9�13�2019 Patient seen and examined in the ICU Patient's daughter still present in his good support for her (Griselda) Discussed with RN Chart reviewed 01/29/19 Pt seen and examined in ICU at bedside s/p Whipple ESA drain at RLQ intact Pt sleeping upon entry and with daughter today- appears in NAD Daughter says pt is alcoholic; she also says pt did not sleep well last night LANG RN Vitals Vitals Vital Signs Date Time Temp Pulse Resp B/P (MAP) Pulse Ox O2 Delivery O2 Flow Rate FiO2 02/06/19 07:48 94 Room Air 02/06/19 03:52 2.0 02/06/19 03:00 97.9 111 20 116/68 (84) 97.9 Physical Exam Physical Exam GENERAL: min coop. Does not appear toxic and looks comfortable HEENT: Normocephalic, atraumatic, anicteric. PERRL. mouth dry with ? dentition NECK: Supple, no JVD, no tenderness. LUNGS: Clear anteriorly. HEART: S1, S2. No gallops or murmurs. ABDOMEN: Soft, mildly distended. Abd wound is clean. SEA drains intact with no drainage - not holding suction. Decreased Bowel sounds present. Wound is dressed Less tenderness present. G tube to suction EXTREMITIES: No edema, no cyanosis. mitts DERMATOLOGIC: Warm, dry. No generalized rash. GENITOURINARY: No Moreno. CENTRAL NERVOUS SYSTEM: moves all 4 extremities. IVs: RIJ - clean General: No acute distress Heart: Regular rate Lungs: Clear Abdomen: Soft, Other (ND, drains serous) Extremities: No clubbing, No cyanosis, No tenderness/swelling Skin: No rashes, No breakdown Labs LABS Laboratory Tests Test 02/06/19 06:30 White Blood Count 26.2 x10^3/uL (4.0-11.0) Red Blood Count 2.99 x10^6/uL (3.50-5.40) Hemoglobin 9.8 g/dL (12.0-15.5) Hematocrit 29.3 % (36.0-47.0) Mean Corpuscular Volume 98 fL (79-100) Mean Corpuscular Hemoglobin 33 pg (25-35) Mean Corpuscular Hemoglobin Concent 34 g/dL (31-37) Red Cell Distribution Width 13.6 % (11.5-14.5) Platelet Count 276 x10^3/uL (140-400) Neutrophils (%) (Auto) 81 % (31-73) Lymphocytes (%) (Auto) 9 % (24-48) Monocytes (%) (Auto) 9 % (0-9) Eosinophils (%) (Auto) 1 % (0-3) Basophils (%) (Auto) 0 % (0-3) Neutrophils # (Auto) 21.3 x10^3/uL (1.8-7.7) Lymphocytes # (Auto) 2.4 x10^3/uL (1.0-4.8) Monocytes # (Auto) 2.3 x10^3/uL (0.0-1.1) Eosinophils # (Auto) 0.2 x10^3/uL (0.0-0.7) Basophils # (Auto) 0.0 x10^3/uL (0.0-0.2) Sodium Level 140 mmol/L (136-145) Potassium Level 4.6 mmol/L (3.5-5.1) Chloride Level 108 mmol/L (98-107) Carbon Dioxide Level 28 mmol/L (21-32) Anion Gap 4 (6-14) Blood Urea Nitrogen 19 mg/dL (7-20) Creatinine 0.7 mg/dL (0.6-1.0) Estimated GFR (Cockcroft-Gault) 85.9 Glucose Level 188 mg/dL (70-99) Calcium Level 7.8 mg/dL (8.5-10.1) Phosphorus Level 3.3 mg/dL (2.6-4.7) Magnesium Level 2.1 mg/dL (1.8-2.4) Comment Review of Relevant I have reviewed the following items dante (where applicable) has been applied. Labs Laboratory Tests Test 02/04/19 08:30 02/05/19 05:45 02/06/19 06:30 Body Fluid Amylase 22 U/L (.) White Blood Count 24.4 x10^3/uL (4.0-11.0) 26.2 x10^3/uL (4.0-11.0) Red Blood Count 2.99 x10^6/uL (3.50-5.40) 2.99 x10^6/uL (3.50-5.40) Hemoglobin 9.9 g/dL (12.0-15.5) 9.8 g/dL (12.0-15.5) Hematocrit 29.1 % (36.0-47.0) 29.3 % (36.0-47.0) Mean Corpuscular Volume 97 fL (79-100) 98 fL (79-100) Mean Corpuscular Hemoglobin 33 pg (25-35) 33 pg (25-35) Mean Corpuscular Hemoglobin Concent 34 g/dL (31-37) 34 g/dL (31-37) Red Cell Distribution Width 13.5 % (11.5-14.5) 13.6 % (11.5-14.5) Platelet Count 260 x10^3/uL (140-400) 276 x10^3/uL (140-400) Neutrophils (%) (Auto) 81 % (31-73) 81 % (31-73) Lymphocytes (%) (Auto) 10 % (24-48) 9 % (24-48) Monocytes (%) (Auto) 9 % (0-9) 9 % (0-9) Eosinophils (%) (Auto) 0 % (0-3) 1 % (0-3) Basophils (%) (Auto) 0 % (0-3) 0 % (0-3) Neutrophils # (Auto) 19.6 x10^3/uL (1.8-7.7) 21.3 x10^3/uL (1.8-7.7) Lymphocytes # (Auto) 2.4 x10^3/uL (1.0-4.8) 2.4 x10^3/uL (1.0-4.8) Monocytes # (Auto) 2.2 x10^3/uL (0.0-1.1) 2.3 x10^3/uL (0.0-1.1) Eosinophils # (Auto) 0.1 x10^3/uL (0.0-0.7) 0.2 x10^3/uL (0.0-0.7) Basophils # (Auto) 0.1 x10^3/uL (0.0-0.2) 0.0 x10^3/uL (0.0-0.2) Sodium Level 135 mmol/L (136-145) 140 mmol/L (136-145) Potassium Level 4.1 mmol/L (3.5-5.1) 4.6 mmol/L (3.5-5.1) Chloride Level 103 mmol/L (98-107) 108 mmol/L (98-107) Carbon Dioxide Level 26 mmol/L (21-32) 28 mmol/L (21-32) Anion Gap 6 (6-14) 4 (6-14) Blood Urea Nitrogen 16 mg/dL (7-20) 19 mg/dL (7-20) Creatinine 0.6 mg/dL (0.6-1.0) 0.7 mg/dL (0.6-1.0) Estimated GFR (Cockcroft-Gault) 102.7 85.9 Glucose Level 121 mg/dL (70-99) 188 mg/dL (70-99) Calcium Level 7.5 mg/dL (8.5-10.1) 7.8 mg/dL (8.5-10.1) Phosphorus Level 2.4 mg/dL (2.6-4.7) 3.3 mg/dL (2.6-4.7) Magnesium Level 1.8 mg/dL (1.8-2.4) 2.1 mg/dL (1.8-2.4) Laboratory Tests Test 02/06/19 06:30 White Blood Count 26.2 x10^3/uL (4.0-11.0) Red Blood Count 2.99 x10^6/uL (3.50-5.40) Hemoglobin 9.8 g/dL (12.0-15.5) Hematocrit 29.3 % (36.0-47.0) Mean Corpuscular Volume 98 fL (79-100) Mean Corpuscular Hemoglobin 33 pg (25-35) Mean Corpuscular Hemoglobin Concent 34 g/dL (31-37) Red Cell Distribution Width 13.6 % (11.5-14.5) Platelet Count 276 x10^3/uL (140-400) Neutrophils (%) (Auto) 81 % (31-73) Lymphocytes (%) (Auto) 9 % (24-48) Monocytes (%) (Auto) 9 % (0-9) Eosinophils (%) (Auto) 1 % (0-3) Basophils (%) (Auto) 0 % (0-3) Neutrophils # (Auto) 21.3 x10^3/uL (1.8-7.7) Lymphocytes # (Auto) 2.4 x10^3/uL (1.0-4.8) Monocytes # (Auto) 2.3 x10^3/uL (0.0-1.1) Eosinophils # (Auto) 0.2 x10^3/uL (0.0-0.7) Basophils # (Auto) 0.0 x10^3/uL (0.0-0.2) Sodium Level 140 mmol/L (136-145) Potassium Level 4.6 mmol/L (3.5-5.1) Chloride Level 108 mmol/L (98-107) Carbon Dioxide Level 28 mmol/L (21-32) Anion Gap 4 (6-14) Blood Urea Nitrogen 19 mg/dL (7-20) Creatinine 0.7 mg/dL (0.6-1.0) Estimated GFR (Cockcroft-Gault) 85.9 Glucose Level 188 mg/dL (70-99) Calcium Level 7.8 mg/dL (8.5-10.1) Phosphorus Level 3.3 mg/dL (2.6-4.7) Magnesium Level 2.1 mg/dL (1.8-2.4) Microbiology 02/01/19 Urine Culture - Final, Complete 02/01/19 Urine Culture Result 1 (WINSTON) - Final, Complete 02/01/19 Blood Culture - Preliminary, Resulted NO GROWTH AFTER 4 DAYS Medications Current Medications Ondansetron HCl (Zofran) 4 mg PRN Q6HRS PRN IV NAUSEA/VOMITING; Start 01/27/19 at 07:00; Stop 01/28/19 at 06:59; Status DC Fentanyl Citrate (Fentanyl 2ml Vial) 25 mcg PRN Q5MIN PRN IV MILD PAIN 1-3; Start 01/27/19 at 07:00; Stop 01/28/19 at 06:59; Status DC Fentanyl Citrate (Fentanyl 2ml Vial) 50 mcg PRN Q5MIN PRN IV MODERATE TO SEVERE PAIN; Start 01/27/19 at 07:00; Stop 01/28/19 at 06:59; Status DC Morphine Sulfate (Morphine Sulfate) 1 mg PRN Q10MIN PRN IV SEVERE PAIN 7-10; Start 01/27/19 at 07:00; Stop 01/28/19 at 06:59; Status DC Ringer's Solution 1,000 ml @ 30 mls/hr Q24H IV Last administered on 01/27/19at 08:15; Start 01/27/19 at 07:00; Stop 01/27/19 at 18:59; Status DC Hydromorphone HCl (Dilaudid) 0.5 mg PRN Q10MIN PRN IV SEV PAIN, Second choice; Start 01/27/19 at 07:00; Stop 01/28/19 at 06:59; Status DC Prochlorperazine Edisylate (Compazine) 5 mg PACU PRN PRN IV NAUSEA, MRX1 Last administered on 01/28/19at 03:33; Start 01/27/19 at 07:00; Stop 01/28/19 at 06:59; Status DC Cefoxitin Sodium (Mefoxin) 2 gm 1X PREOP PRN IVP SURGERY Last administered on 01/27/19at 12:18; Start 01/27/19 at 06:00; Stop 01/28/19 at 10:13; Status DC Sevoflurane (Ultane) 90 ml STK-MED ONCE IH ; Start 01/27/19 at 09:11; Stop 01/27/19 at 09:11; Status DC Rocuronium Corbin (Zemuron) 50 mg STK-MED ONCE .ROUTE ; Start 01/27/19 at 09:11; Stop 01/27/19 at 09:11; Status DC Fentanyl Citrate (Fentanyl 2ml Vial) 100 mcg STK-MED ONCE .ROUTE ; Start 01/27/19 at 09:11; Stop 01/27/19 at 09:11; Status DC Neostigmine Methylsulfate (Neostigmine Methylsulfate) 5 mg STK-MED ONCE .ROUTE ; Start 01/27/19 at 09:11; Stop 01/27/19 at 09:11; Status DC Midazolam HCl (Versed) 2 mg STK-MED ONCE .ROUTE ; Start 01/27/19 at 09:11; Stop 01/27/19 at 09:11; Status DC Glycopyrrolate (Robinul) 1 mg STK-MED ONCE .ROUTE ; Start 01/27/19 at 09:11; Stop 01/27/19 at 09:11; Status DC Phenylephrine HCl (Bret-Synephrine Inj) 10 mg STK-MED ONCE .ROUTE ; Start 01/27/19 at 09:11; Stop 01/27/19 at 09:12; Status DC Dexamethasone Sodium Phosphate (Decadron) 4 mg STK-MED ONCE .ROUTE ; Start 01/27/19 at 09:11; Stop 01/27/19 at 09:12; Status DC Ondansetron HCl (Zofran) 4 mg STK-MED ONCE .ROUTE ; Start 01/27/19 at 09:12; Stop 01/27/19 at 09:12; Status DC Lidocaine HCl (Lidocaine Pf 2% Vial) 5 ml STK-MED ONCE .ROUTE ; Start 01/27/19 at 09:12; Stop 01/27/19 at 09:12; Status DC Propofol 20 ml @ As Directed STK-MED ONCE IV ; Start 01/27/19 at 09:12; Stop 01/27/19 at 09:12; Status DC Sodium Chloride (Normal Saline Flush) 3 ml QSHIFT PRN IV AFTER MEDS AND BLOOD DRAWS; Start 01/27/19 at 09:30; Stop 02/03/19 at 09:09; Status DC Ibuprofen (Motrin) 400 mg PRN Q6HRS PRN PO MILD PAIN 1-3; Start 01/27/19 at 09:30 Naloxone HCl (Narcan) 0.4 mg PRN Q2MIN PRN IV SEE INSTRUCTIONS; Start 01/27/19 at 09:30; Stop 01/31/19 at 09:15; Status DC Sodium Chloride 1,000 ml @ 25 mls/hr Q24H IV ; Start 01/27/19 at 09:28; Stop 01/30/19 at 14:52; Status DC Ondansetron HCl (Zofran) 4 mg PRN Q6HRS PRN IV Nausea, 2nd Choice; Start 01/27/19 at 09:30; Status Cancel Epinephrine HCl (EPINEPHrine SYRINGE) 1 mg STK-MED ONCE .ROUTE ; Start 01/27/19 at 10:15; Stop 01/27/19 at 10:16; Status DC Lidocaine HCl (Lidocaine Pf 2% Vial) 5 ml STK-MED ONCE .ROUTE ; Start 01/27/19 at 10:15; Stop 01/27/19 at 10:16; Status DC Ropivacaine (Naropin 0.5%) 20 ml STK-MED ONCE .ROUTE ; Start 01/27/19 at 10:17; Stop 01/27/19 at 10:18; Status DC Cellulose (Surgicel Hemostat 4x8) 1 each STK-MED ONCE .ROUTE Last administered on 01/27/19at 11:25; Start 01/27/19 at 11:24; Stop 01/27/19 at 11:25; Status DC Cellulose (Surgicel Hemostat 4x8) 1 each STK-MED ONCE .ROUTE Last administered on 01/27/19at 11:39; Start 01/27/19 at 11:38; Stop 01/27/19 at 11:38; Status DC Rocuronium Corbin (Zemuron) 50 mg STK-MED ONCE .ROUTE ; Start 01/27/19 at 12:09; Stop 01/27/19 at 12:09; Status DC Cefoxitin Sodium (Mefoxin) 2 gm 1X ONCE IVP Last administered on 01/27/19at 12:33; Start 01/27/19 at 12:30; Stop 01/27/19 at 12:31; Status DC Phenylephrine HCl (Bret-Synephrine Inj) 10 mg STK-MED ONCE .ROUTE ; Start 01/27/19 at 14:49; Stop 01/27/19 at 14:49; Status DC Sodium Chloride 35 ml/Fentanyl Citrate 250 mcg/ Ropivacaine 10 ml/ Epidural Dosage Infused (Pha) 50 ml @ 0 mls/hr CONT EPID ; Start 01/27/19 at 15:00; Status UNV Sodium Chloride 35 ml/Fentanyl Citrate 250 mcg/ Ropivacaine 10 ml/ Epidural Dosage Infused (Pha) 50 ml @ 0 mls/hr CONT PRN EPID SEE PROTOCOL TABLE Last administered on 01/28/19at 05:00; Start 01/27/19 at 15:00; Stop 01/28/19 at 08:11; Status DC Cefoxitin Sodium (Mefoxin) 2 gm 1X PREOP PRN IVP SURGERY Last administered on 01/27/19at 16:47; Start 01/27/19 at 15:15; Stop 01/28/19 at 10:13; Status DC Famotidine (Pepcid Vial) 20 mg BID IVP Last administered on 02/05/19at 22:05; Start 01/27/19 at 21:00 Enoxaparin Sodium (Lovenox 40mg Syringe) 40 mg Q24H SQ Last administered on 01/29/19at 12:24; Start 01/28/19 at 09:00; Stop 01/29/19 at 17:14; Status DC Sodium Chloride (Normal Saline Flush) 3 ml QSHIFT PRN IV AFTER MEDS AND BLOOD DRAWS; Start 01/27/19 at 15:45 Ringer's Solution 1,000 ml @ 100 mls/hr Q10H IV Last administered on 01/30/19at 03:20; Start 01/27/19 at 15:33; Stop 01/30/19 at 14:52; Status DC Naloxone HCl (Narcan) 0.4 mg PRN Q2MIN PRN IV SEE INSTRUCTIONS; Start 01/27/19 at 15:45 Sodium Chloride 1,000 ml @ 25 mls/hr Q24H IV ; Start 01/27/19 at 15:33; Stop 01/28/19 at 15:52; Status DC Ondansetron HCl (Zofran) 4 mg PRN Q6HRS PRN IV NAUESA, 1ST CHOICE Last administered on 02/01/19at 23:49; Start 01/27/19 at 15:45 Sodium Chloride 35 ml/Fentanyl Citrate 250 mcg/ Ropivacaine 10 ml/ Epidural Dosage Infused (Pha) 50 ml @ 0 mls/hr CONT PRN EPID SEE PROTOCOL TABLE Last administered on 02/01/19at 08:00; Start 01/28/19 at 08:15; Stop 02/01/19 at 10:03; Status DC Throat Lozenges (Cepacol Sore Throat Lozenge) 1 karthikeyan PRN Q2HRS PRN PO SORE THROAT Last administered on 01/28/19at 10:49; Start 01/28/19 at 09:30 Lorazepam (Ativan Inj) 0.5 mg PRN Q6HRS PRN IV ANXIETY AGITATION, 1ST CHOICE Last administered on 01/31/19 21:13; Start 01/28/19 at 12:30 Thiamine HCl 100 mg DAILY IM Last administered on 01/30/19 09:12; Start 01/28/19 at 13:00; Stop 01/31/19 at 11:44; Status DC Lorazepam (Ativan Inj) 2 mg PRN Q1HR PRN IV For CIWA 8-14 Last administered on 02/06/19 03:27; Start 01/28/19 at 13:00 Lorazepam (Ativan Inj) 4 mg PRN Q1HR PRN IV For CIWA 15 or greater; Start 01/28/19 at 13:00 Haloperidol Lactate (Haldol Inj) 5 mg PRN Q4HRS PRN IVP Hallucinatns,Confusn,Delirium Last administered on 02/04/19at 23:47; Start 01/28 at 13:00 Diphenhydramine HCl (Benadryl) 25 mg PRN Q15MIN PRN IVP EPS symptoms 2'Haldol admin; Start 01/28/19 at 13:00 Lorazepam (Ativan Inj) 2 mg PRN Q15MIN PRN IV SEE COMMENTS Last administered on 02/05/19 01:12; Start 01/28/19 at 13:00 Lorazepam (Ativan Inj) 4 mg PRN Q15MIN PRN IV SEE COMMENTS Last administered on 02/05/19 02:29; Start 01/28/19 at 13:00 Albuterol/ Ipratropium (Duoneb) 3 ml RTQID NEB Last administered on 02/06/19at 07:48; Start 01/28/19 at 13:00 Non-Formulary Medication (Fluticasone/ Umeclidin/ Vilanter (Trelegy Ellipta 100-62.5-25)) 1 puff DAILY PO ; Start 01/29/19 at 09:00; Status UNV Budesonide (Pulmicort) 0.5 mg RTBID NEB Last administered on 02/06/19at 07:48; Start 01/28/19 at 20:00 Albuterol Sulfate (Ventolin Neb Soln) 2.5 mg PRN Q6HRS PRN INH SHORTNESS OF BREATH; Start 01/28/19 at 14:00 Lorazepam (Ativan) 1 mg PRN Q6HRS PRN PO ANXIETY / AGITATION Last administered on 02/04/19at 12:07; Start 01/28/19 at 14:00; Stop 02/04/19 at 12:58; Status DC Pantoprazole Sodium (Protonix) 40 mg DAILYAC PO Last administered on 02/05/19 09:13; Start 01/28/19 at 16:30 Metoprolol Tartrate (Lopressor Vial) 12.5 mg BID IVP ; Start 01/29/19 at 21:00; Stop 01/29/19 at 14:50; Status DC Metoprolol Tartrate (Lopressor) 12.5 mg BID PO Last administered on 02/05/19 22:05; Start 01/29/19 at 17:00 Amino Acids/ Glycerin/ Electrolytes 1,000 ml @ 75 mls/hr [id number] IV Last adm inistered on 02/02/19at 18:20; Start 01/30/19 at 11:30; Stop 02/02/19 at 21:59; Status DC Acetaminophen (Tylenol) 650 mg PRN Q6HRS PRN PO fever Last administered on 02/01/19 08:45; Start 01/31/19 at 01:15 Thiamine Mononitrate (Vitamin B-1) 100 mg DAILY PO Last administered on 02/05/19 09:13; Start 01/31/19 at 12:30 Heparin Sodium (Porcine) (Heparin Sodium) 5,000 unit Q12HR SQ Last administered on 02/05/19 22:13; Start 01/31/19 at 14:00 Piperacillin Sod/ Tazobactam Sod 3.375 gm/Sodium Chloride 50 ml @ 100 mls/hr Q6HRS IV Last administered on 02/04/19 05:58; Start 02/01/19 at 10:00; Stop 02/04/19 at 06:32; Status DC Linezolid/Dextrose 300 ml @ 300 mls/hr Q12HR IV Last administered on 02/03/19 21:30; Start 02/01/19 at 10:00; Stop 02/04/19 at 06:32; Status DC Micafungin Sodium 100 mg/Dextrose 100 ml @ 100 mls/hr Q24H IV Last administered on 02/05/19at 11:04; Start 02/01/19 at 11:00 Sodium Chloride 35 ml/Fentanyl Citrate 250 mcg/ Ropivacaine 10 ml/ Epidural Dosage Infused (Pha) 50 ml @ 0 mls/hr CONT PRN EPID SEE PROTOCOL TABLE Last administered on 02/01/19at 11:16; Start 02/01/19 at 10:15; Stop 02/04/19 at 09:09; Status DC Fentanyl Citrate (Fentanyl 2ml Vial) 25 mcg PRN Q5MIN PRN IV MILD PAIN 1-3; Start 02/01/19 at 14:00; Stop 02/02/19 at 13:59; Status DC Fentanyl Citrate (Fentanyl 2ml Vial) 50 mcg PRN Q5MIN PRN IV MODERATE TO SEVERE PAIN Last administered on 02/02/19at 09:09; Start 02/01/19 at 14:00; Stop 02/02/19 at 13:59; Status DC Hydromorphone HCl (Dilaudid) 1 mg PRN Q2HR PRN IV PAIN Last administered on 02/06/19at 03:27; Start 02/01/19 at 16:30 Ketorolac Tromethamine (Toradol 30mg Vial) 30 mg 1X ONCE IV Last administered on 02/01/19at 16:43; Start 02/01/19 at 16:30; Stop 02/01/19 at 16:31; Status DC Sodium Chloride 500 ml @ 500 mls/hr 1X ONCE IV Last administered on 02/02/19at 05:37; Start 02/02/19 at 05:30; Stop 02/02/19 at 06:29; Status DC Hydromorphone HCl 30 ml @ 0 mls/hr CONT PRN PRN IV PER PROTOCOL Last administered on 02/02/19at 10:32; Start 02/02/19 at 09:00; Stop 02/04/19 at 09:0 9; Status DC Info (Tpn Per Pharmacy) 1 each PRN DAILY PRN MC SEE COMMENTS Last administered on 02/05/19at 13:14; Start 02/02/19 at 10:00 Sodium Phosphate 20 mmol/Dextrose 256.6667 ml @ 64.167 m... 1X ONCE IV Last administered on 02/02/19at 14:38; Start 02/02/19 at 11:00; Stop 02/02/19 at 14:59; Status DC Furosemide (Lasix) 20 mg 1X ONCE IVP Last administered on 02/02/19at 16:16; Start 02/02/19 at 16:00; Stop 02/02/19 at 16:01; Status DC Lidocaine/Sodium Bicarbonate (Buffered Lidocaine 1%) 3 ml 1X ONCE INJ ; Start 02/02/19 at 14:00; Stop 02/02/19 at 14:05; Status DC Sodium Chloride 80 meq/Potassium Chloride 40 meq/ Sodium Phosphate 13.6 mmol/ Magnesium Sulfate 10 meq/Calcium Gluconate 10 meq/ Multivitamins 10 ml/Chromium/ Copper/Manganese/ Seleni/Zn 1 ml/ Total Parenteral Nutrition/Amino Acids/Dextrose/ Fat Emulsion Intravenous 1,512 ml @ 63 mls/hr TPN CONT IV Last administered on 02/02/19at 21:50; Start 02/02/19 at 22:00; Stop 02/03/19 at 21:59; Status DC Potassium Phosphate 15 mmol/ Sodium Chloride 255 ml @ 127.5 mls/ hr 1X ONCE IV Last administered on 02/03/19at 11:35; Start 02/03/19 at 11:00; Stop 02/03/19 at 12:59; Status DC Potassium Chloride (Klor-Con) 40 meq 1X ONCE PO Last administered on 02/03/19at 21:30; Start 02/03/19 at 11:30; Stop 02/03/19 at 11:31; Status DC Sodium Chloride 120 meq/Potassium Chloride 50 meq/ Sodium Phosphate 20.4 mmol/ Magnesium Sulfate 10 meq/Calcium Gluconate 10 meq/ Multivitamins 10 ml/Chromium/ Copper/Manganese/ Seleni/Zn 1 ml/ Total Parenteral Nutrition/Amino Acids/Dextrose/ Fat Emulsion Intravenous 1,512 ml @ 63 mls/hr TPN CONT IV Last administered on 02/03/19at 21:30; Start 02/03/19 at 22:00; Stop 02/04/19 at 21:59; Status DC Potassium Chloride (Klor-Con) 40 meq 1X ONCE PO Last administered on 02/03/19at 21:31; Start 02/03/19 at 21:00; Stop 02/03/19 at 21:01; Status DC Meropenem 500 mg/ Sodium Chloride 50 ml @ 100 mls/hr Q6HRS IV Last administered on 02/06/19 05:52; Start 02/04/19 at 07:00 Oxycodone/ Acetaminophen (Percocet 5/325) 1 tab PRN Q4HRS PRN PO MODERATE TO SEVERE PAIN Last administered on 02/06/19 01:34; Start 02/04/19 at 09:15 Docusate Sodium (Colace) 100 mg DAILY PO Last administered on 02/05/19 09:13; Start 02/04/19 at 10:00 Iohexol (Omnipaque 350 Mg/ml) 75 ml 1X ONCE IV Last administered on 02/04/19 12:30; Start 02/04/19 at 10:15; Stop 02/04/19 at 10:16; Status DC Info (CONTRAST GIVEN -- Rx MONITORING) 1 each PRN DAILY PRN MC SEE COMMENTS; Start 02/04/19 at 10:15; Stop 02/06/19 at 10:14 Lorazepam (Ativan) 1 mg PRN Q6HRS PRN PO ANXIETY / AGITATION Last administered on 02/04/19at 18:17; Start 02/04/19 at 13:00 Sodium Chloride 120 meq/Sodium Phosphate 24 mmol/ Potassium Chloride 50 meq/ Magnesium Sulfate 13 meq/Calcium Gluconate 10 meq/ Multivitamins 10 ml/Chromium/ Copper/Manganese/ Seleni/Zn 1 ml/ Total Parenteral Nutrition/Amino Acids/Dextrose/ Fat Emulsion Intravenous 1,512 ml @ 63 mls/hr TPN CONT IV Last administered on 02/04/19at 22:20; Start 02/04/19 at 22:00; Stop 02/05/19 at 21:59; Status DC Sodium Phosphate 15 mmol/Dextrose 255 ml @ 63.75 mls/ hr 1X ONCE IV Last administered on 02/04/19at 14:23; Start 02/04/19 at 14:00; Stop 02/04/19 at 17:59; Status DC Lorazepam (Ativan Inj) 2 mg PRN Q4HRS PRN IV ANXIETY/AGITATION (USE 2ND) Last administered on 02/04/19at 20:46; Start 02/04/19 at 20:15 Sodium Phosphate 20 mmol/Dextrose 256.6667 ml @ 64.167 m... 1X ONCE IV Last administered on 02/05/19at 12:56; Start 02/05/19 at 12:00; Stop 02/05/19 at 15:59; Status DC Sodium Chloride 120 meq/Sodium Phosphate 27 mmol/ Potassium Chloride 50 meq/ Magnesium Sulfate 13 meq/Calcium Gluconate 10 meq/ Multivitamins 10 ml/Chromium/ Copper/Manganese/ Seleni/Zn 1 ml/ Total Parenteral Nutrition/Amino Acids/Dextrose/ Fat Emulsion Intravenous 1,512 ml @ 63 mls/hr TPN CONT IV Last administered on 02/05/19at 23:33; Start 02/05/19 at 22:00; Stop 02/06/19 at 21:59 Active Scripts Active Lactulose 20 Gm/30 Ml Solution 20 Gm PO PRN TID PRN 30 Days Zofran (Ondansetron Hcl) 4 Mg Tablet 1 Tab PO Q6HRS 30 Days Hydrocodone-Apap 5-325 (Hydrocodone Bit/Acetaminophen) 1 Tab Tablet 1 Tab PO PRN Q6HRS PRN 6 Days Pantoprazole Sodium (Pantoprazole Sodium) 40 Mg Tablet.dr 40 Mg PO DAILYAC 30 Days Lorazepam 1 Mg Tablet 1 Mg PO PRN Q6HRS PRN 6 Days Reported Proair Hfa Inhaler (Albuterol Sulfate) 8.5 Gm Hfa.aer.ad 1 Puff INH PRN Q6HRS PRN Trelegy Ellipta 100-62.5-25 (Fluticasone/Umeclidin/Vilanter) 1 Each Blst.w.dev 1 Puff PO DAILY Vitals/I & O Vital Sign - Last 24 Hours 02/05/19 02/05/19 02/05/19 02/05/19 09:00 09:13 10:00 11:00 Pulse 117 107 120 111 Resp 20 21 20 B/P (MAP) 122/86 (98) 116/66 142/88 (106) 101/58 (72) Pulse Ox 97 96 96 O2 Delivery Room Air Room Air Room Air 02/05/19 02/05/19 02/05/19 02/05/19 12:00 12:00 12:15 13:00 Temp 98.6 98.6 Pulse 105 106 Resp 20 20 B/P (MAP) 93/52 (66) 108/57 (74) Pulse Ox 96 97 O2 Delivery Room Air Room Air Room Air Room Air O2 Flow Rate 2.0 02/05/19 02/05/19 02/05/19 02/05/19 16:33 18:03 18:44 19:02 Temp 98.4 98.4 98.4 98.4 Resp 20 20 20 B/P (MAP) 133/59 (83) 133/59 (83) Pulse Ox 97 91 91 O2 Delivery Room Air Room Air Room Air Room Air 02/05/19 02/05/19 02/05/19 02/05/19 20:00 20:00 20:19 22:05 Pulse 106 B/P (MAP) 133/59 Pulse Ox 91 96 O2 Delivery Room Air Room Air Room Air O2 Flow Rate 2.0 02/05/19 02/05/19 02/06/19 02/06/19 22:05 23:00 00:39 01:34 Temp 98.3 98.3 Pulse 109 Resp 20 B/P (MAP) 125/72 (89) Pulse Ox 96 95 95 95 O2 Delivery Room Air Room Air Room Air Room Air O2 Flow Rate 2.0 2.0 2.0 02/06/19 02/06/19 02/06/19 02/06/19 03:00 03:14 03:27 03:52 Temp 97.9 97.9 Pulse 111 Resp 20 B/P (MAP) 116/68 (84) Pulse Ox 94 95 95 95 O2 Delivery Room Air Room Air Room Air Room Air O2 Flow Rate 2.0 2.0 2.0 02/06/19 02/06/19 07:48 07:48 Pulse Ox 94 94 O2 Delivery Room Air Room Air Intake and Output 02/05/19 02/05/19 02/06/19 14:59 22:59 06:59 Intake Total 0 ml 0 ml 0 ml Output Total 40 ml 25 ml Balance -40 ml -25 ml 0 ml TAMAR CHAMPAGNE MD Feb 06, 2019 08:18
[2019-02-06] MEDS: THIAMINE 100 MG TABLET. PO SCH ×2 (09:00→09:08)
[2019-02-06] MEDS: DOCUSATE SODIUM 100 MG CAPSULE. PO SCH ×2 (09:00→09:07)
[2019-02-06] MEDS: METOPROLOL TART IMMED RELEASE 25 MG TABLET. PO SCH ×3 (09:00→21:00)
[2019-02-06] MEDS: FAMOTIDINE 20 MG/2 ML VIAL IVP SCH ×2 (09:06→21:00)
--- NOTE | 2019-02-06 09:12 | PDOC ---
PEDRITO TAPIA [employer] PROGRAM DIRECTOR 02/06/19 0912: SURGICAL PROGRESS NOTE Subjective restless, moaning sitter at bedside Vital Signs Vital Signs Date Time Temp Pulse Resp B/P (MAP) Pulse Ox O2 Delivery O2 Flow Rate FiO2 02/06/19 07:48 94 Room Air 02/06/19 03:52 2.0 02/06/19 03:00 97.9 111 20 116/68 (84) 97.9 I&O Intake and Output 02/06/19 06:59 Intake Total 0 ml Output Total 65 ml Balance -65 ml Intake Oral 0 ml Gastric Drainage Total 0 ml Drainage Total 65 ml # Voids 1 # Bowel Movements 1 General: Alert, Oriented X3, Cooperative, No acute distress Abdomen: Soft, Other (dressing dry) Labs Laboratory Tests Test 02/05/19 05:45 02/06/19 06:30 White Blood Count 24.4 x10^3/uL (4.0-11.0) 26.2 x10^3/uL (4.0-11.0) Red Blood Count 2.99 x10^6/uL (3.50-5.40) 2.99 x10^6/uL (3.50-5.40) Hemoglobin 9.9 g/dL (12.0-15.5) 9.8 g/dL (12.0-15.5) Hematocrit 29.1 % (36.0-47.0) 29.3 % (36.0-47.0) Mean Corpuscular Volume 97 fL (79-100) 98 fL (79-100) Mean Corpuscular Hemoglobin 33 pg (25-35) 33 pg (25-35) Mean Corpuscular Hemoglobin Concent 34 g/dL (31-37) 34 g/dL (31-37) Red Cell Distribution Width 13.5 % (11.5-14.5) 13.6 % (11.5-14.5) Platelet Count 260 x10^3/uL (140-400) 276 x10^3/uL (140-400) Neutrophils (%) (Auto) 81 % (31-73) 81 % (31-73) Lymphocytes (%) (Auto) 10 % (24-48) 9 % (24-48) Monocytes (%) (Auto) 9 % (0-9) 9 % (0-9) Eosinophils (%) (Auto) 0 % (0-3) 1 % (0-3) Basophils (%) (Auto) 0 % (0-3) 0 % (0-3) Neutrophils # (Auto) 19.6 x10^3/uL (1.8-7.7) 21.3 x10^3/uL (1.8-7.7) Lymphocytes # (Auto) 2.4 x10^3/uL (1.0-4.8) 2.4 x10^3/uL (1.0-4.8) Monocytes # (Auto) 2.2 x10^3/uL (0.0-1.1) 2.3 x10^3/uL (0.0-1.1) Eosinophils # (Auto) 0.1 x10^3/uL (0.0-0.7) 0.2 x10^3/uL (0.0-0.7) Basophils # (Auto) 0.1 x10^3/uL (0.0-0.2) 0.0 x10^3/uL (0.0-0.2) Sodium Level 135 mmol/L (136-145) 140 mmol/L (136-145) Potassium Level 4.1 mmol/L (3.5-5.1) 4.6 mmol/L (3.5-5.1) Chloride Level 103 mmol/L (98-107) 108 mmol/L (98-107) Carbon Dioxide Level 26 mmol/L (21-32) 28 mmol/L (21-32) Anion Gap 6 (6-14) 4 (6-14) Blood Urea Nitrogen 16 mg/dL (7-20) 19 mg/dL (7-20) Creatinine 0.6 mg/dL (0.6-1.0) 0.7 mg/dL (0.6-1.0) Estimated GFR (Cockcroft-Gault) 102.7 85.9 Glucose Level 121 mg/dL (70-99) 188 mg/dL (70-99) Calcium Level 7.5 mg/dL (8.5-10.1) 7.8 mg/dL (8.5-10.1) Phosphorus Level 2.4 mg/dL (2.6-4.7) 3.3 mg/dL (2.6-4.7) Magnesium Level 1.8 mg/dL (1.8-2.4) 2.1 mg/dL (1.8-2.4) Laboratory Tests Test 02/06/19 06:30 White Blood Count 26.2 x10^3/uL (4.0-11.0) Red Blood Count 2.99 x10^6/uL (3.50-5.40) Hemoglobin 9.8 g/dL (12.0-15.5) Hematocrit 29.3 % (36.0-47.0) Mean Corpuscular Volume 98 fL (79-100) Mean Corpuscular Hemoglobin 33 pg (25-35) Mean Corpuscular Hemoglobin Concent 34 g/dL (31-37) Red Cell Distribution Width 13.6 % (11.5-14.5) Platelet Count 276 x10^3/uL (140-400) Neutrophils (%) (Auto) 81 % (31-73) Lymphocytes (%) (Auto) 9 % (24-48) Monocytes (%) (Auto) 9 % (0-9) Eosinophils (%) (Auto) 1 % (0-3) Basophils (%) (Auto) 0 % (0-3) Neutrophils # (Auto) 21.3 x10^3/uL (1.8-7.7) Lymphocytes # (Auto) 2.4 x10^3/uL (1.0-4.8) Monocytes # (Auto) 2.3 x10^3/uL (0.0-1.1) Eosinophils # (Auto) 0.2 x10^3/uL (0.0-0.7) Basophils # (Auto) 0.0 x10^3/uL (0.0-0.2) Sodium Level 140 mmol/L (136-145) Potassium Level 4.6 mmol/L (3.5-5.1) Chloride Level 108 mmol/L (98-107) Carbon Dioxide Level 28 mmol/L (21-32) Anion Gap 4 (6-14) Blood Urea Nitrogen 19 mg/dL (7-20) Creatinine 0.7 mg/dL (0.6-1.0) Estimated GFR (Cockcroft-Gault) 85.9 Glucose Level 188 mg/dL (70-99) Calcium Level 7.8 mg/dL (8.5-10.1) Phosphorus Level 3.3 mg/dL (2.6-4.7) Magnesium Level 2.1 mg/dL (1.8-2.4) Assessment/Plan s/p whipple supportive measures HÉCTOR RANDALL MD 02/06/19 1158: SURGICAL PROGRESS NOTE Assessment/Plan Given persistent issues with confusion will check CT head and ask neuro to consult PEDRITO TAPIA APRN Feb 06, 2019 09:12 HÉCTOR RANDALL MD Feb 06, 2019 11:58
--- NOTE | 2019-02-06 09:30 | PDOC ---
Infectious Disease Note Subjective Subjective min response ROS ROS Unobtainable Vital Sign Vital Signs Vital Signs Date Time Temp Pulse Resp B/P (MAP) Pulse Ox O2 Delivery O2 Flow Rate FiO2 02/06/19 09:11 20 94 Room Air 02/06/19 09:11 111 116/68 02/06/19 09:00 97.6 94.0 97.6 Physical Exam PHYSICAL EXAM GENERAL: min coop. Does not appear toxic and looks comfortable on her right side HEENT: Normocephalic, atraumatic, anicteric. PERRL. NECK: Supple, no JVD, no tenderness. LUNGS: Clear anteriorly. HEART: S1, S2. No gallops or murmurs. ABDOMEN: Soft, mildly distended. Abd wound is clean. Decreased Bowel sounds present. Wound is dressed Less tenderness present. G tube EXTREMITIES: No edema, no cyanosis. mitts moved ext DERMATOLOGIC: Warm, dry. No generalized rash. GENITOURINARY: No [place]. CENTRAL NERVOUS SYSTEM: moves all 4 extremities. IVs: RIJ - clean Labs Lab Laboratory Tests Test 02/06/19 06:30 White Blood Count 26.2 x10^3/uL (4.0-11.0) Red Blood Count 2.99 x10^6/uL (3.50-5.40) Hemoglobin 9.8 g/dL (12.0-15.5) Hematocrit 29.3 % (36.0-47.0) Mean Corpuscular Volume 98 fL (79-100) Mean Corpuscular Hemoglobin 33 pg (25-35) Mean Corpuscular Hemoglobin Concent 34 g/dL (31-37) Red Cell Distribution Width 13.6 % (11.5-14.5) Platelet Count 276 x10^3/uL (140-400) Neutrophils (%) (Auto) 81 % (31-73) Lymphocytes (%) (Auto) 9 % (24-48) Monocytes (%) (Auto) 9 % (0-9) Eosinophils (%) (Auto) 1 % (0-3) Basophils (%) (Auto) 0 % (0-3) Neutrophils # (Auto) 21.3 x10^3/uL (1.8-7.7) Lymphocytes # (Auto) 2.4 x10^3/uL (1.0-4.8) Monocytes # (Auto) 2.3 x10^3/uL (0.0-1.1) Eosinophils # (Auto) 0.2 x10^3/uL (0.0-0.7) Basophils # (Auto) 0.0 x10^3/uL (0.0-0.2) Sodium Level 140 mmol/L (136-145) Potassium Level 4.6 mmol/L (3.5-5.1) Chloride Level 108 mmol/L (98-107) Carbon Dioxide Level 28 mmol/L (21-32) Anion Gap 4 (6-14) Blood Urea Nitrogen 19 mg/dL (7-20) Creatinine 0.7 mg/dL (0.6-1.0) Estimated GFR (Cockcroft-Gault) 85.9 Glucose Level 188 mg/dL (70-99) Calcium Level 7.8 mg/dL (8.5-10.1) Phosphorus Level 3.3 mg/dL (2.6-4.7) Magnesium Level 2.1 mg/dL (1.8-2.4) Micro Impression: Gas and fluid collection at the gallbladder fossa. Correlate for possibility of abscess. Catheter drains are noted coursing through the anterior aspect of this collection. Hepatic cirrhosis or other fibrotic process. Bilateral pleural effusions and adjacent bibasilar atelectasis. Pelvic free fluid is present. Stomach is distended with fluid. Objective Assessment 1. Fever - resolved UA - clean. 2. Leukocytosis - better- today - procal with mild elevation 02/04- previous lactic nml. ? Ileus - small BM 2 days ago per nursing. ? reactive - fever better CTA and LE dopplers without acute process 3. 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 Pancreatic CA 5. Encephalopathy - ? metabolic 6. History of hepatitis C. 7. History of bilateral mastectomy. 8. Chronic obstructive pulmonary disease. 8. Peripheral neuropathy. 9. ETOH abuse and h/o anxiety. Plan Plan of Care CT head and abd/pelvis Discont Zosyn (02/01 - 02/04) and begin Meropenem 02/04 D/c'd Zyvox 02/04 Cont Micafungin 02/01 Electrolyte abnormalities per primary f/u bc and urine c/s f/u labs in am and cults maintain aspiration precautions If no improvement in mental status may need CT head but nursing states she is starting to rest better so maybe related to sleep deficiency D/w nursing SCOTT REYEZ MD Feb 06, 2019 09:30
[2019-02-06] MEDS: MICAFUNGIN 100 MG in IV DEXTROSE 5% 100ML 100 ML IV SCH (11:00)
[2019-02-06] MEDS: HEPARIN for SUB-Q USE 5,000 UNIT/ML VIAL. SQ SCH ×2 (11:08→22:25)
[2019-02-06] MEDS ORDERED: CONTRAST GIVEN. MC PRN (11:45)
[2019-02-06] MEDS ORDERED: IOHEXOL 300 MG/ML 100ML VIAL. IV ONE (12:00)
--- NOTE | 2019-02-06 12:01 | PDOC ---
PROGRESS NOTES Subjective Subjective HPI - f/u of T2, N1 pancreatic cancer. ROS - confused/restless Objective Objective Vital Signs Date Time Temp Pulse Resp B/P (MAP) Pulse Ox O2 Delivery O2 Flow Rate FiO2 02/06/19 11:53 98.6 133 20 126/97 (107) 96 Room Air 98.6 02/06/19 09:00 94.0 Intake and Output 02/06/19 06:59 Intake Total 0 ml Output Total 65 ml Balance -65 ml Intake Oral 0 ml Gastric Drainage Total 0 ml Drainage Total 65 ml # Voids 1 # Bowel Movements 1 Physical Exam Heart: Normal S1, Normal S2 General: Alert, No acute distress Lungs: Clear to auscultation Assessment Assessment IMPRESSION AND PLAN: 1. T2, N1 pancreatic cancer. Liver biopsy is still pending. She underwent Whipple surgery on 01/27/2019. I reviewed the case at multidisciplinary tumor conference. Plan to continue postoperative care. Await biopsy of the liver. If it is negative, I will plan for adjuvant chemotherapy with Gemzar and Xeloda after she completely recovers. I will plan for a followup visit at my office in 3 to 4 weeks. I d/w RN I d/w pt's dtr 2. Leukocytosis, reactive. Infectious Disease has been consulted. Fever has improved. She did have a CT scan on 02/01/2019 which revealed gas and fluid collection at the gallbladder fossa. There is also evidence of hepatic cirrhosis. Continue supportive care management. WBC 26.2. 3. Cirrhosis of the liver. Continue supportive care. Comment Review of Relevant I have reviewed the following items dante (where applicable) has been applied. Labs Laboratory Tests Test 02/05/19 05:45 02/06/19 06:30 White Blood Count 24.4 x10^3/uL (4.0-11.0) 26.2 x10^3/uL (4.0-11.0) Red Blood Count 2.99 x10^6/uL (3.50-5.40) 2.99 x10^6/uL (3.50-5.40) Hemoglobin 9.9 g/dL (12.0-15.5) 9.8 g/dL (12.0-15.5) Hematocrit 29.1 % (36.0-47.0) 29.3 % (36.0-47.0) Mean Corpuscular Volume 97 fL (79-100) 98 fL (79-100) Mean Corpuscular Hemoglobin 33 pg (25-35) 33 pg (25-35) Mean Corpuscular Hemoglobin Concent 34 g/dL (31-37) 34 g/dL (31-37) Red Cell Distribution Width 13.5 % (11.5-14.5) 13.6 % (11.5-14.5) Platelet Count 260 x10^3/uL (140-400) 276 x10^3/uL (140-400) Neutrophils (%) (Auto) 81 % (31-73) 81 % (31-73) Lymphocytes (%) (Auto) 10 % (24-48) 9 % (24-48) Monocytes (%) (Auto) 9 % (0-9) 9 % (0-9) Eosinophils (%) (Auto) 0 % (0-3) 1 % (0-3) Basophils (%) (Auto) 0 % (0-3) 0 % (0-3) Neutrophils # (Auto) 19.6 x10^3/uL (1.8-7.7) 21.3 x10^3/uL (1.8-7.7) Lymphocytes # (Auto) 2.4 x10^3/uL (1.0-4.8) 2.4 x10^3/uL (1.0-4.8) Monocytes # (Auto) 2.2 x10^3/uL (0.0-1.1) 2.3 x10^3/uL (0.0-1.1) Eosinophils # (Auto) 0.1 x10^3/uL (0.0-0.7) 0.2 x10^3/uL (0.0-0.7) Basophils # (Auto) 0.1 x10^3/uL (0.0-0.2) 0.0 x10^3/uL (0.0-0.2) Sodium Level 135 mmol/L (136-145) 140 mmol/L (136-145) Potassium Level 4.1 mmol/L (3.5-5.1) 4.6 mmol/L (3.5-5.1) Chloride Level 103 mmol/L (98-107) 108 mmol/L (98-107) Carbon Dioxide Level 26 mmol/L (21-32) 28 mmol/L (21-32) Anion Gap 6 (6-14) 4 (6-14) Blood Urea Nitrogen 16 mg/dL (7-20) 19 mg/dL (7-20) Creatinine 0.6 mg/dL (0.6-1.0) 0.7 mg/dL (0.6-1.0) Estimated GFR (Cockcroft-Gault) 102.7 85.9 Glucose Level 121 mg/dL (70-99) 188 mg/dL (70-99) Calcium Level 7.5 mg/dL (8.5-10.1) 7.8 mg/dL (8.5-10.1) Phosphorus Level 2.4 mg/dL (2.6-4.7) 3.3 mg/dL (2.6-4.7) Magnesium Level 1.8 mg/dL (1.8-2.4) 2.1 mg/dL (1.8-2.4) Laboratory Tests Test 02/06/19 06:30 White Blood Count 26.2 x10^3/uL (4.0-11.0) Red Blood Count 2.99 x10^6/uL (3.50-5.40) Hemoglobin 9.8 g/dL (12.0-15.5) Hematocrit 29.3 % (36.0-47.0) Mean Corpuscular Volume 98 fL (79-100) Mean Corpuscular Hemoglobin 33 pg (25-35) Mean Corpuscular Hemoglobin Concent 34 g/dL (31-37) Red Cell Distribution Width 13.6 % (11.5-14.5) Platelet Count 276 x10^3/uL (140-400) Neutrophils (%) (Auto) 81 % (31-73) Lymphocytes (%) (Auto) 9 % (24-48) Monocytes (%) (Auto) 9 % (0-9) Eosinophils (%) (Auto) 1 % (0-3) Basophils (%) (Auto) 0 % (0-3) Neutrophils # (Auto) 21.3 x10^3/uL (1.8-7.7) Lymphocytes # (Auto) 2.4 x10^3/uL (1.0-4.8) Monocytes # (Auto) 2.3 x10^3/uL (0.0-1.1) Eosinophils # (Auto) 0.2 x10^3/uL (0.0-0.7) Basophils # (Auto) 0.0 x10^3/uL (0.0-0.2) Sodium Level 140 mmol/L (136-145) Potassium Level 4.6 mmol/L (3.5-5.1) Chloride Level 108 mmol/L (98-107) Carbon Dioxide Level 28 mmol/L (21-32) Anion Gap 4 (6-14) Blood Urea Nitrogen 19 mg/dL (7-20) Creatinine 0.7 mg/dL (0.6-1.0) Estimated GFR (Cockcroft-Gault) 85.9 Glucose Level 188 mg/dL (70-99) Calcium Level 7.8 mg/dL (8.5-10.1) Phosphorus Level 3.3 mg/dL (2.6-4.7) Magnesium Level 2.1 mg/dL (1.8-2.4) Microbiology 02/01/19 Urine Culture - Final, Complete 02/01/19 Urine Culture Result 1 ([facility]) - Final, Complete 02/01/19 Blood Culture - Final, Complete NO GROWTH AFTER 5 DAYS Medications Current Medications Ondansetron HCl (Zofran) 4 mg PRN Q6HRS PRN IV NAUSEA/VOMITING; Start 01/27/19 at 07:00; Stop 01/28/19 at 06:59; Status DC Fentanyl Citrate (Fentanyl 2ml Vial) 25 mcg PRN Q5MIN PRN IV MILD PAIN 1-3; Start 01/27/19 at 07:00; Stop 01/28/19 at 06:59; Status DC Fentanyl Citrate (Fentanyl 2ml Vial) 50 mcg PRN Q5MIN PRN IV MODERATE TO SEVERE PAIN; Start 01/27/19 at 07:00; Stop 01/28/19 at 06:59; Status DC Morphine Sulfate (Morphine Sulfate) 1 mg PRN Q10MIN PRN IV SEVERE PAIN 7-10; Start 01/27/19 at 07:00; Stop 01/28/19 at 06:59; Status DC Ringer's Solution 1,000 ml @ 30 mls/hr Q24H IV Last administered on 01/27/19at 08:15; Start 01/27/19 at 07:00; Stop 01/27/19 at 18:59; Status DC Hydromorphone HCl (Dilaudid) 0.5 mg PRN Q10MIN PRN IV SEV PAIN, Second choice; Start 01/27/19 at 07:00; Stop 01/28/19 at 06:59; Status DC Prochlorperazine Edisylate (Compazine) 5 mg PACU PRN PRN IV NAUSEA, MRX1 Last administered on 01/28/19at 03:33; Start 01/27/19 at 07:00; Stop 01/28/19 at 06:59; Status DC Cefoxitin Sodium (Mefoxin) 2 gm 1X PREOP PRN IVP SURGERY Last administered on 01/27/19at 12:18; Start 01/27/19 at 06:00; Stop 01/28/19 at 10:13; Status DC Sevoflurane (Ultane) 90 ml STK-MED ONCE IH ; Start 01/27/19 at 09:11; Stop 01/27/19 at 09:11; Status DC Rocuronium Pender (Zemuron) 50 mg STK-MED ONCE .ROUTE ; Start 01/27/19 at 09:11; Stop 01/27/19 at 09:11; Status DC Fentanyl Citrate (Fentanyl 2ml Vial) 100 mcg STK-MED ONCE .ROUTE ; Start 01/27/19 at 09:11; Stop 01/27/19 at 09:11; Status DC Neostigmine Methylsulfate (Neostigmine Methylsulfate) 5 mg STK-MED ONCE .ROUTE ; Start 01/27/19 at 09:11; Stop 01/27/19 at 09:11; Status DC Midazolam HCl (Versed) 2 mg STK-MED ONCE .ROUTE ; Start 01/27/19 at 09:11; Stop 01/27/19 at 09:11; Status DC Glycopyrrolate (Robinul) 1 mg STK-MED ONCE .ROUTE ; Start 01/27/19 at 09:11; Stop 01/27/19 at 09:11; Status DC Phenylephrine HCl (Bret-Synephrine Inj) 10 mg STK-MED ONCE .ROUTE ; Start 01/27/19 at 09:11; Stop 01/27/19 at 09:12; Status DC Dexamethasone Sodium Phosphate (Decadron) 4 mg STK-MED ONCE .ROUTE ; Start 01/27/19 at 09:11; Stop 01/27/19 at 09:12; Status DC Ondansetron HCl (Zofran) 4 mg STK-MED ONCE .ROUTE ; Start 01/27/19 at 09:12; Stop 01/27/19 at 09:12; Status DC Lidocaine HCl (Lidocaine Pf 2% Vial) 5 ml STK-MED ONCE .ROUTE ; Start 01/27/19 at 09:12; Stop 01/27/19 at 09:12; Status DC Propofol 20 ml @ As Directed STK-MED ONCE IV ; Start 01/27/19 at 09:12; Stop 01/27/19 at 09:12; Status DC Sodium Chloride (Normal Saline Flush) 3 ml QSHIFT PRN IV AFTER MEDS AND BLOOD DRAWS; Start 01/27/19 at 09:30; Stop 02/03/19 at 09:09; Status DC Ibuprofen (Motrin) 400 mg PRN Q6HRS PRN PO MILD PAIN 1-3; Start 01/27/19 at 09:30 Naloxone HCl (Narcan) 0.4 mg PRN Q2MIN PRN IV SEE INSTRUCTIONS; Start 01/27/19 at 09:30; Stop 01/31/19 at 09:15; Status DC Sodium Chloride 1,000 ml @ 25 mls/hr Q24H IV ; Start 01/27/19 at 09:28; Stop 01/30/19 at 14:52; Status DC Ondansetron HCl (Zofran) 4 mg PRN Q6HRS PRN IV Nausea, 2nd Choice; Start 01/27/19 at 09:30; Status Cancel Epinephrine HCl (EPINEPHrine SYRINGE) 1 mg STK-MED ONCE .ROUTE ; Start 01/27/19 at 10:15; Stop 01/27/19 at 10:16; Status DC Lidocaine HCl (Lidocaine Pf 2% Vial) 5 ml STK-MED ONCE .ROUTE ; Start 01/27/19 at 10:15; Stop 01/27/19 at 10:16; Status DC Ropivacaine (Naropin 0.5%) 20 ml STK-MED ONCE .ROUTE ; Start 01/27/19 at 10:17; Stop 01/27/19 at 10:18; Status DC Cellulose (Surgicel Hemostat 4x8) 1 each STK-MED ONCE .ROUTE Last administered on 01/27/19at 11:25; Start 01/27/19 at 11:24; Stop 01/27/19 at 11:25; Status DC Cellulose (Surgicel Hemostat 4x8) 1 each STK-MED ONCE .ROUTE Last administered on 01/27/19at 11:39; Start 01/27/19 at 11:38; Stop 01/27/19 at 11:38; Status DC Rocuronium Pender (Zemuron) 50 mg STK-MED ONCE .ROUTE ; Start 01/27/19 at 12:09; Stop 01/27/19 at 12:09; Status DC Cefoxitin Sodium (Mefoxin) 2 gm 1X ONCE IVP Last administered on 01/27/19at 12 :33; Start 01/27/19 at 12:30; Stop 01/27/19 at 12:31; Status DC Phenylephrine HCl (Bret-Synephrine Inj) 10 mg STK-MED ONCE .ROUTE ; Start 01/27/19 at 14:49; Stop 01/27/19 at 14:49; Status DC Sodium Chloride 35 ml/Fentanyl Citrate 250 mcg/ Ropivacaine 10 ml/ Epidural Dosage Infused (Pha) 50 ml @ 0 mls/hr CONT EPID ; Start 01/27/19 at 15:00; Status UNV Sodium Chloride 35 ml/Fentanyl Citrate 250 mcg/ Ropivacaine 10 ml/ Epidural Dosage Infused (Pha) 50 ml @ 0 mls/hr CONT PRN EPID SEE PROTOCOL TABLE Last administered on 01/28/19at 05:00; Start 01/27/19 at 15:00; Stop 01/28/19 at 08:11; Status DC Cefoxitin Sodium (Mefoxin) 2 gm 1X PREOP PRN IVP SURGERY Last administered on 01/27/19at 16:47; Start 01/27/19 at 15:15; Stop 01/28/19 at 10:13; Status DC Famotidine (Pepcid Vial) 20 mg BID IVP Last administered on 02/06/19at 09:11; Start 01/27/19 at 21:00 Enoxaparin Sodium (Lovenox 40mg Syringe) 40 mg Q24H SQ Last administered on 01/29/19at 12:24; Start 01/28/19 at 09:00; Stop 01/29/19 at 17:14; Status DC Sodium Chloride (Normal Saline Flush) 3 ml QSHIFT PRN IV AFTER MEDS AND BLOOD DRAWS; Start 01/27/19 at 15:45 Ringer's Solution 1,000 ml @ 100 mls/hr Q10H IV Last administered on 01/30/19at 03:20; Start 01/27/19 at 15:33; Stop 01/30/19 at 14:52; Status DC Naloxone HCl (Narcan) 0.4 mg PRN Q2MIN PRN IV SEE INSTRUCTIONS; Start 01/27/19 at 15:45 Sodium Chloride 1,000 ml @ 25 mls/hr Q24H IV ; Start 01/27/19 at 15:33; Stop 01/28/19 at 15:52; Status DC Ondansetron HCl (Zofran) 4 mg PRN Q6HRS PRN IV NAUESA, 1ST CHOICE Last administered on 02/01/19at 23:49; Start 01/27/19 at 15:45 Sodium Chloride 35 ml/Fentanyl Citrate 250 mcg/ Ropivacaine 10 ml/ Epidural Dosage Infused (Pha) 50 ml @ 0 mls/hr CONT PRN EPID SEE PROTOCOL TABLE Last administered on 02/01/19at 08:00; Start 01/28/19 at 08:15; Stop 02/01/19 at 10:03; Status DC Throat Lozenges (Cepacol Sore Throat Lozenge) 1 karthikeyan PRN Q2HRS PRN PO SORE TH ROAT Last administered on 01/28/19at 10:49; Start 01/28/19 at 09:30 Lorazepam (Ativan Inj) 0.5 mg PRN Q6HRS PRN IV ANXIETY AGITATION, 1ST CHOICE Last administered on 01/31/19at 21:13; Start 01/28/19 at 12:30; Stop 02/06/19 at 10:42; Status DC Thiamine HCl 100 mg DAILY IM Last administered on 01/30/19at 09:12; Start 01/28/19 at 13:00; Stop 01/31/19 at 11:44; Status DC Lorazepam (Ativan Inj) 2 mg PRN Q1HR PRN IV For CIWA 8-14 Last administered on 02/06/19at 03:27; Start 01/28/19 at 13:00; Stop 02/06/19 at 10:42; Status DC Lorazepam (Ativan Inj) 4 mg PRN Q1HR PRN IV For CIWA 15 or greater; Start 01/28/19 at 13:00; Stop 02/06/19 at 10:42; Status DC Haloperidol Lactate (Haldol Inj) 5 mg PRN Q4HRS PRN IVP Hallucinatns,Confusn,Delirium Last administered on 02/04/19at 23:47; Start 01/28/19 at 13:00 Diphenhydramine HCl (Benadryl) 25 mg PRN Q15MIN PRN IVP EPS symptoms 2'Haldol admin; Start 01/28/19 at 13:00 Lorazepam (Ativan Inj) 2 mg PRN Q15MIN PRN IV SEE COMMENTS Last administered on 02/05/19at 01:12; Start 01/28/19 at 13:00; Stop 02/06/19 at 10:42; Status DC Lorazepam (Ativan Inj) 4 mg PRN Q15MIN PRN IV SEE COMMENTS Last administered on 02/05/19at 02:29; Start 01/28/19 at 13:00; Stop 02/06/19 at 10:42; Status DC Albuterol/ Ipratropium (Duoneb) 3 ml RTQID NEB Last administered on 02/06/19at 07:48; Start 01/28/19 at 13:00 Non-Formulary Medication (Fluticasone/ Umeclidin/ Vilanter (Trelegy Ellipta 100-62.5-25)) 1 puff DAILY PO ; Start 01/29/19 at 09:00; Status UNV Budesonide (Pulmicort) 0.5 mg RTBID NEB Last administered on 02/06/19at 07:48; Start 01/28/19 at 20:00 Albuterol Sulfate (Ventolin Neb Soln) 2.5 mg PRN Q6HRS PRN INH SHORTNESS OF BREATH; Start 01/28/19 at 14:00 Lorazepam (Ativan) 1 mg PRN Q6HRS PRN PO ANXIETY / AGITATION Last administered on 02/04/19at 12:07; Start 01/28/19 at 14:00; Stop 02/04/19 at 12:58; Status DC Pantoprazole Sodium (Protonix) 40 mg DAILYAC PO Last administered on 02/05/19at 09:13; Start 01/28/19 at 16:30 Metoprolol Tartrate (Lopressor Vial) 12.5 mg BID IVP ; Start 01/29/19 at 21:00; Stop 01/29/19 at 14:50; Status DC Metoprolol Tartrate (Lopressor) 12.5 mg BID PO Last administered on 02/05/19at 22:05; Start 01/29/19 at 17:00 Amino Acids/ Glycerin/ Electrolytes 1,000 ml @ 75 mls/hr [id number] IV Last administered on 02/02/19at 18:20; Start 01/30/19 at 11:30; Stop 02/02/19 at 21:59; Status DC Acetaminophen (Tylenol) 650 mg PRN Q6HRS PRN PO fever Last administered on 02/01/19at 08:45; Start 01/31/19 at 01:15 Thiamine Mononitrate (Vitamin B-1) 100 mg DAILY PO Last administered on 02/05/19 at 09:13; Start 01/31/19 at 12:30 Heparin Sodium (Porcine) (Heparin Sodium) 5,000 unit Q12HR SQ Last administered on 02/06/19at 11:08; Start 01/31/19 at 14:00 Piperacillin Sod/ Tazobactam Sod 3.375 gm/Sodium Chloride 50 ml @ 100 mls/hr Q6HRS IV Last administered on 02/04/19at 05:58; Start 02/01/19 at 10:00; Stop 02/04/19 at 06:32; Status DC Linezolid/Dextrose 300 ml @ 300 mls/hr Q12HR IV Last administered on 02/03/19at 21:30; Start 02/01/19 at 10:00; Stop 02/04/19 at 06:32; Status DC Micafungin Sodium 100 mg/Dextrose 100 ml @ 100 mls/hr Q24H IV Last administered on 02/06/19at 11:00; Start 02/01/19 at 11:00 Sodium Chloride 35 ml/Fentanyl Citrate 250 mcg/ Ropivacaine 10 ml/ Epidural Dosage Infused (Pha) 50 ml @ 0 mls/hr CONT PRN EPID SEE PROTOCOL TABLE Last administered on 02/01/19at 11:16; Start 02/01/19 at 10:15; Stop 02/04/19 at 09:09; Status DC Fentanyl Citrate (Fentanyl 2ml Vial) 25 mcg PRN Q5MIN PRN IV MILD PAIN 1-3; Start 02/01/19 at 14:00; Stop 02/02/19 at 13:59; Status DC Fentanyl Citrate (Fentanyl 2ml Vial) 50 mcg PRN Q5MIN PRN IV MODERATE TO SEVERE PAIN Last administered on 02/02/19at 09:09; Start 02/01/19 at 14:00; Stop 02/02/19 at 13:59; Status DC Hydromorphone HCl (Dilaudid) 1 mg PRN Q2HR PRN IV PAIN Last administered on 02/06/19at 09:11; Start 02/01/19 at 16:30; Stop 02/06/19 at 10:42; Status DC Ketorolac Tromethamine (Toradol 30mg Vial) 30 mg 1X ONCE IV Last administered on 02/01/19at 16:43; Start 02/01/19 at 16:30; Stop 02/01/19 at 16:31; Status DC Sodium Chloride 500 ml @ 500 mls/hr 1X ONCE IV Last administered on 02/02/19at 05:37; Start 02/02/19 at 05:30; Stop 02/02/19 at 06:29; Status DC Hydromorphone HCl 30 ml @ 0 mls/hr CONT PRN PRN IV PER PROTOCOL Last administered on 02/02/19at 10:32; Start 02/02/19 at 09:00; Stop 02/04/19 at 09:09; Status DC Info (Tpn Per Pharmacy) 1 each PRN DAILY PRN MC SEE COMMENTS Last administered on 02/05/19at 13:14; Start 02/02/19 at 10:00 Sodium Phosphate 20 mmol/Dextrose 256.6667 ml @ 64.167 m... 1X ONCE IV Last administered on 02/02/19at 14:38; Start 02/02/19 at 11:00; Stop 02/02/19 at 14:59; Status DC Furosemide (Lasix) 20 mg 1X ONCE IVP Last administered on 02/02/19at 16:16; Start 02/02/19 at 16:00; Stop 02/02/19 at 16:01; Status DC Lidocaine/Sodium Bicarbonate (Buffered Lidocaine 1%) 3 ml 1X ONCE INJ ; Start 02/02/19 at 14:00; Stop 02/02/19 at 14:05; Status DC Sodium Chloride 80 meq/Potassium Chloride 40 meq/ Sodium Phosphate 13.6 mmol/ Magnesium Sulfate 10 meq/Calcium Gluconate 10 meq/ Multivitamins 10 ml/Chromium/ Copper/Manganese/ Seleni/Zn 1 ml/ Total Parenteral Nutrition/Amino Acids/Dextrose/ Fat Emulsion Intravenous 1,512 ml @ 63 mls/hr TPN CONT IV Last administered on 02/02/19at 21:50; Start 02/02/19 at 22:00; Stop 02/03/19 at 21:59; Status DC Potassium Phosphate 15 mmol/ Sodium Chloride 255 ml @ 127.5 mls/ hr 1X ONCE IV Last administered on 02/03/19at 11:35; Start 02/03/19 at 11:00; Stop 02/03/19 at 12:59; Status DC Potassium Chloride (Klor-Con) 40 meq 1X ONCE PO Last administered on 02/03/19at 21:30; Start 02/03/19 at 11:30; Stop 02/03/19 at 11:31; Status DC Sodium Chloride 120 meq/Potassium Chloride 50 meq/ Sodium Phosphate 20.4 mmol/ Magnesium Sulfate 10 meq/Calcium Gluconate 10 meq/ Multivitamins 10 ml/Chromium/ Copper/Manganese/ Seleni/Zn 1 ml/ Total Parenteral Nutrition/Amino Acids/Dextrose/ Fat Emulsion Intravenous 1,512 ml @ 63 mls/hr TPN CONT IV Last administered on 02/03/19at 21:30; Start 02/03/19 at 22:00; Stop 02/04/19 at 21:59; Status DC Potassium Chloride (Klor-Con) 40 meq 1X ONCE PO Last administered on 02/03/19at 21:31; Start 02/03/19 at 21:00; Stop 02/03/19 at 21:01; Status DC Meropenem 500 mg/ Sodium Chloride 50 ml @ 100 mls/hr Q6HRS IV Last administered on 02/06/19at 05:52; Start 02/04/19 at 07:00 Oxycodone/ Acetaminophen (Percocet 5/325) 1 tab PRN Q4HRS PRN PO MODERATE TO SEVERE PAIN Last administered on 02/06/19at 01:34; Start 02/04/19 at 09:15 Docusate Sodium (Colace) 100 mg DAILY PO Last administered on 02/05/19at 09:13; Start 02/04/19 at 10:00 Iohexol (Omnipaque 350 Mg/ml) 75 ml 1X ONCE IV Last administered on 02/04/19at 12:30; Start 02/04/19 at 10:15; Stop 02/04/19 at 10:16; Status DC Info (CONTRAST GIVEN -- Rx MONITORING) 1 each PRN DAILY PRN MC SEE COMMENTS; Start 02/04/19 at 10:15; Stop 02/06/19 at 10:14; Status DC Lorazepam (Ativan) 1 mg PRN Q6HRS PRN PO ANXIETY / AGITATION Last administered on 02/04/19at 18:17; Start 02/04/19 at 13:00; Stop 02/06/19 at 10:42; Status DC Sodium Chloride 120 meq/Sodium Phosphate 24 mmol/ Potassium Chloride 50 meq/ Magnesium Sulfate 13 meq/Calcium Gluconate 10 meq/ Multivitamins 10 ml/Chromium/ Copper/Manganese/ Seleni/Zn 1 ml/ Total Parenteral Nutrition/Amino Acids/Dextrose/ Fat Emulsion Intravenous 1,512 ml @ 63 mls/hr TPN CONT IV Last administered on 02/04/19at 22:20; Start 02/04/19 at 22:00; Stop 02/05/19 at 21:59; Status DC Sodium Phosphate 15 mmol/Dextrose 255 ml @ 63.75 mls/ hr 1X ONCE IV Last administered on 02/04/19at 14:23; Start 02/04/19 at 14:00; Stop 02/04/19 at 17:59; Status DC Lorazepam (Ativan Inj) 2 mg PRN Q4HRS PRN IV ANXIETY/AGITATION (USE 2ND) Last administered on 02/04/19at 20:46; Start 02/04/19 at 20:15; Stop 02/06/19 at 10:42; Status DC Sodium Phosphate 20 mmol/Dextrose 256.6667 ml @ 64.167 m... 1X ONCE IV Last administered on 02/05/19at 12:56; Start 02/05/19 at 12:00; Stop 02/05/19 at 15:59; Status DC Sodium Chloride 120 meq/Sodium Phosphate 27 mmol/ Potassium Chloride 50 meq/ Magnesium Sulfate 13 meq/Calcium Gluconate 10 meq/ Multivitamins 10 ml/Chromium/ Copper/Manganese/ Seleni/Zn 1 ml/ Total Parenteral Nutrition/Amino Acids/Dextr ose/ Fat Emulsion Intravenous 1,512 ml @ 63 mls/hr TPN CONT IV Last administered on 02/05/19at 23:33; Start 02/05/19 at 22:00; Stop 02/06/19 at 21:59 Lorazepam (Ativan Inj) 0.25 mg PRN Q6HRS PRN IV ANXIETY AGITATION, 1ST CHOICE; Start 02/06/19 at 10:45 Iohexol (Omnipaque 300 Mg/ml) 75 ml 1X ONCE IV ; Start 02/06/19 at 12:00; Stop 02/06/19 at 12:01 Info (CONTRAST GIVEN -- Rx MONITORING) 1 each PRN DAILY PRN MC SEE COMMENTS; Start 02/06/19 at 11:45; Stop 02/08/19 at 11:44 Active Scripts Active Lactulose 20 Gm/30 Ml Solution 20 Gm PO PRN TID PRN 30 Days Zofran (Ondansetron Hcl) 4 Mg Tablet 1 Tab PO Q6HRS 30 Days Hydrocodone-Apap 5-325 (Hydrocodone Bit/Acetaminophen) 1 Tab Tablet 1 Tab PO PRN Q6HRS PRN 6 Days Pantoprazole Sodium (Pantoprazole Sodium) 40 Mg Tablet.dr 40 Mg PO DAILYAC 30 Days Lorazepam 1 Mg Tablet 1 Mg PO PRN Q6HRS PRN 6 Days Reported Proair Hfa Inhaler (Albuterol Sulfate) 8.5 Gm Hfa.aer.ad 1 Puff INH PRN Q6HRS PRN Trelegy Ellipta 100-62.5-25 (Fluticasone/Umeclidin/Vilanter) 1 Each Blst.w.dev 1 Puff PO DAILY Vitals/I & O Vital Sign - Last 24 Hours 02/05/19 02/05/19 02/05/19 02/05/19 12:00 12:00 12:15 13:00 Temp 98.6 98.6 Pulse 105 106 Resp 20 20 B/P (MAP) 93/52 (66) 108/57 (74) Pulse Ox 96 97 O2 Delivery Room Air Room Air Room Air Room Air O2 Flow Rate 2.0 9/19/19 9/19/19 9/19/19 9/19/19 16:33 18:03 18:44 19:02 Temp 98.4 98.4 98.4 98.4 Resp 20 20 20 B/P (MAP) 133/59 (83) 133/59 (83) Pulse Ox 97 91 91 O2 Delivery Room Air Room Air Room Air Room Air 02/05/19 02/05/19 02/05/19 02/05/19 20:00 20:00 20:19 22:05 Pulse 106 B/P (MAP) 133/59 Pulse Ox 91 96 O2 Delivery Room Air Room Air Room Air O2 Flow Rate 2.0 02/05/19 02/05/19 02/06/19 02/06/19 22:05 23:00 00:39 01:34 Temp 98.3 98.3 Pulse 109 Resp 20 B/P (MAP) 125/72 (89) Pulse Ox 96 95 95 95 O2 Delivery Room Air Room Air Room Air Room Air O2 Flow Rate 2.0 2.0 2.0 02/06/19 02/06/19 02/06/19 02/06/19 03:00 03:14 03:27 03:52 Temp 97.9 97.9 Pulse 111 Resp 20 B/P (MAP) 116/68 (84) Pulse Ox 94 95 95 95 O2 Delivery Room Air Room Air Room Air Room Air O2 Flow Rate 2.0 2.0 2.0 02/06/19 02/06/19 02/06/19 02/06/19 07:00 07:48 07:48 09:00 Temp 97.6 97.6 97.6 97.6 Pulse 124 124 Resp 18 18 B/P (MAP) 124/72 (89) 124/72 (89) Pulse Ox 94 94 94 O2 Delivery Room Air Room Air Room Air Room Air O2 Flow Rate 94.0 02/06/19 02/06/19 09:11 11:53 Temp 98.6 98.6 Pulse 133 Resp 20 20 B/P (MAP) 126/97 (107) Pulse Ox 94 96 O2 Delivery Room Air Room Air Intake and Output 02/05/19 02/05/19 02/06/19 14:59 22:59 06:59 Intake Total 0 ml 0 ml 0 ml Output Total 40 ml 25 ml Balance -40 ml -25 ml 0 ml CANDIS OLEARY MD Feb 06, 2019 12:01
--- NOTE | 2019-02-06 12:56 | RAD ---
CT HEAD WITHOUT CONTRAST 02/06/2019 10:42 AM Indication: Altered mental status, acute change in mental status Comparison: None Procedure: Multidetector CT imaging of the head was performed without the administration of contrast. Findings: Exam limited by motion artifact. No evidence of acute intracranial hemorrhage is identified. No mass effect or midline shift is seen. Basilar cisterns are grossly patent. No overt acute or subacute ischemic changes identified. Somewhat limited purpose. No acute osseous changes are seen. IMPRESSION: Limited study without evidence of acute intracranial abnormality CT DOSING PQRS STATEMENT: One or more of the following individualized dose reduction techniques were utilized for this examination: 1. Automated exposure control 2. Adjustment of the mA and/or kV according to patient size 3. Use of iterative reconstruction technique Electronically signed by: Harlan Trevizo MD (02/06/2019 12:54 PM) [id number]
--- NOTE | 2019-02-06 13:08 | PDOC2 ---
NEUROLOGY CONSULT Date of Admission Date of Admission DATE: 02/06/19 TIME: 12:58 Reason for Consult Reason for Consult: Altered mental status Referring Physician Referring Physician: Dr. Amin Source Source: Chart review History of Present Illness History of Present Illness The patient is a 58-year-old female admitted with a pancreatic mass, found to have T2, N1 pancreatic cancer. She was transferred out of the ICU yesterday. She has been agitated and confused and receiving Ativan and Dilaudid for presumption of pain and alcohol withdrawal. She is unable to provide any history. Past Medical History GI: GERD Heme/Onc: Cancer (breast, and now pancreatic) Hepatobiliary: Cirrhosis, Hep A/B/C Musculoskeletal: low back pain Past Surgical History Past Surgical History: Hysterectomy Family History Family History: No pertinent hx Social History Social History Uses alcohol and tobacco, unemployed Current Medications Current Medications Current Medications Ondansetron HCl (Zofran) 4 mg PRN Q6HRS PRN IV NAUSEA/VOMITING; Start 01/27/19 at 07:00; Stop 01/28/19 at 06:59; Status DC Fentanyl Citrate (Fentanyl 2ml Vial) 25 mcg PRN Q5MIN PRN IV MILD PAIN 1-3; Start 01/27/19 at 07:00; Stop 01/28/19 at 06:59; Status DC Fentanyl Citrate (Fentanyl 2ml Vial) 50 mcg PRN Q5MIN PRN IV MODERATE TO SEVERE PAIN; Start 01/27/19 at 07:00; Stop 01/28/19 at 06:59; Status DC Morphine Sulfate (Morphine Sulfate) 1 mg PRN Q10MIN PRN IV SEVERE PAIN 7-10; Start 01/27/19 at 07:00; Stop 01/28/19 at 06:59; Status DC Ringer's Solution 1,000 ml @ 30 mls/hr Q24H IV Last administered on 01/27/19at 08:15; Start 01/27/19 at 07:00; Stop 01/27/19 at 18:59; Status DC Hydromorphone HCl (Dilaudid) 0.5 mg PRN Q10MIN PRN IV SEV PAIN, Second choice; Start 01/27/19 at 07:00; Stop 01/28/19 at 06:59; Status DC Prochlorperazine Edisylate (Compazine) 5 mg PACU PRN PRN IV NAUSEA, MRX1 Last administered on 01/28/19at 03:33; Start 01/27/19 at 07:00; Stop 01/28/19 at 06:59; Status DC Cefoxitin Sodium (Mefoxin) 2 gm 1X PREOP PRN IVP SURGERY Last administered on 01/27/19at 12:18; Start 01/27/19 at 06:00; Stop 01/28/19 at 10:13; Status DC Sevoflurane (Ultane) 90 ml STK-MED ONCE IH ; Start 01/27/19 at 09:11; Stop 01/27/19 at 09:11; Status DC Rocuronium Marshall (Zemuron) 50 mg STK-MED ONCE .ROUTE ; Start 01/27/19 at 09:11; Stop 01/27/19 at 09:11; Status DC Fentanyl Citrate (Fentanyl 2ml Vial) 100 mcg STK-MED ONCE .ROUTE ; Start 01/27/19 at 09:11; Stop 01/27/19 at 09:11; Status DC Neostigmine Methylsulfate (Neostigmine Methylsulfate) 5 mg STK-MED ONCE .ROUTE ; Start 01/27/19 at 09:11; Stop 01/27/19 at 09:11; Status DC Midazolam HCl (Versed) 2 mg STK-MED ONCE .ROUTE ; Start 01/27/19 at 09:11; Stop 01/27/19 at 09:11; Status DC Glycopyrrolate (Robinul) 1 mg STK-MED ONCE .ROUTE ; Start 01/27/19 at 09:11; Stop 01/27/19 at 09:11; Status DC Phenylephrine HCl (Bret-Synephrine Inj) 10 mg STK-MED ONCE .ROUTE ; Start 01/27/19 at 09:11; Stop 01/27/19 at 09:12; Status DC Dexamethasone Sodium Phosphate (Decadron) 4 mg STK-MED ONCE .ROUTE ; Start 01/27/19 at 09:11; Stop 01/27/19 at 09:12; Status DC Ondansetron HCl (Zofran) 4 mg STK-MED ONCE .ROUTE ; Start 01/27/19 at 09:12; Stop 01/27/19 at 09:12; Status DC Lidocaine HCl (Lidocaine Pf 2% Vial) 5 ml STK-MED ONCE .ROUTE ; Start 01/27/19 at 09:12; Stop 01/27/19 at 09:12; Status DC Propofol 20 ml @ As Directed STK-MED ONCE IV ; Start 01/27/19 at 09:12; Stop 01/27/19 at 09:12; Status DC Sodium Chloride (Normal Saline Flush) 3 ml QSHIFT PRN IV AFTER MEDS AND BLOOD DRAWS; Start 01/27/19 at 09:30; Stop 02/03/19 at 09:09; Status DC Ibuprofen (Motrin) 400 mg PRN Q6HRS PRN PO MILD PAIN 1-3; Start 01/27/19 at 09 :30 Naloxone HCl (Narcan) 0.4 mg PRN Q2MIN PRN IV SEE INSTRUCTIONS; Start 01/27/19 at 09:30; Stop 01/31/19 at 09:15; Status DC Sodium Chloride 1,000 ml @ 25 mls/hr Q24H IV ; Start 01/27/19 at 09:28; Stop 01/30/19 at 14:52; Status DC Ondansetron HCl (Zofran) 4 mg PRN Q6HRS PRN IV Nausea, 2nd Choice; Start 01/27/19 at 09:30; Status Cancel Epinephrine HCl (EPINEPHrine SYRINGE) 1 mg STK-MED ONCE .ROUTE ; Start 01/27/19 at 10:15; Stop 01/27/19 at 10:16; Status DC Lidocaine HCl (Lidocaine Pf 2% Vial) 5 ml STK-MED ONCE .ROUTE ; Start 01/27/19 at 10:15; Stop 01/27/19 at 10:16; Status DC Ropivacaine (Naropin 0.5%) 20 ml STK-MED ONCE .ROUTE ; Start 01/27/19 at 10:17; Stop 01/27/19 at 10:18; Status DC Cellulose (Surgicel Hemostat 4x8) 1 each STK-MED ONCE .ROUTE Last administered on 01/27/19at 11:25; Start 01/27/19 at 11:24; Stop 01/27/19 at 11:25; Status DC Cellulose (Surgicel Hemostat 4x8) 1 each STK-MED ONCE .ROUTE Last administered on 01/27/19at 11:39; Start 01/27/19 at 11:38; Stop 01/27/19 at 11:38; Status DC Rocuronium Marshall (Zemuron) 50 mg STK-MED ONCE .ROUTE ; Start 01/27/19 at 12:09; Stop 01/27/19 at 12:09; Status DC Cefoxitin Sodium (Mefoxin) 2 gm 1X ONCE IVP Last administered on 01/27/19at 12:33; Start 01/27/19 at 12:30; Stop 01/27/19 at 12:31; Status DC Phenylephrine HCl (Bret-Synephrine Inj) 10 mg STK-MED ONCE .ROUTE ; Start 01/27/19 at 14:49; Stop 01/27/19 at 14:49; Status DC Sodium Chloride 35 ml/Fentanyl Citrate 250 mcg/ Ropivacaine 10 ml/ Epidural Dosage Infused (Pha) 50 ml @ 0 mls/hr CONT EPID ; Start 01/27/19 at 15:00; Status UNV Sodium Chloride 35 ml/Fentanyl Citrate 250 mcg/ Ropivacaine 10 ml/ Epidural Dosage Infused (Pha) 50 ml @ 0 mls/hr CONT PRN EPID SEE PROTOCOL TABLE Last administered on 01/28/19at 05:00; Start 01/27/19 at 15:00; Stop 01/28/19 at 08:11; Status DC Cefoxitin Sodium (Mefoxin) 2 gm 1X PREOP PRN IVP SURGERY Last administered on 01/27/19at 16:47; Start 01/27/19 at 15:15; Stop 01/28/19 at 10:13; Status DC Famotidine (Pepcid Vial) 20 mg BID IVP Last administered on 02/06/19at 09:11; Start 01/27/19 at 21:00 Enoxaparin Sodium (Lovenox 40mg Syringe) 40 mg Q24H SQ Last administered on 01/29/19at 12:24; Start 01/28/19 at 09:00; Stop 01/29/19 at 17:14; Status DC Sodium Chloride (Normal Saline Flush) 3 ml QSHIFT PRN IV AFTER MEDS AND BLOOD DRAWS; Start 01/27/19 at 15:45 Ringer's Solution 1,000 ml @ 100 mls/hr Q10H IV Last administered on 01/30/19at 03:20; Start 01/27/19 at 15:33; Stop 01/30/19 at 14:52; Status DC Naloxone HCl (Narcan) 0.4 mg PRN Q2MIN PRN IV SEE INSTRUCTIONS; Start 01/27/19 at 15:45 Sodium Chloride 1,000 ml @ 25 mls/hr Q24H IV ; Start 01/27/19 at 15:33; Stop 01/28/19 at 15:52; Status DC Ondansetron HCl (Zofran) 4 mg PRN Q6HRS PRN IV NAUESA, 1ST CHOICE Last administered on 02/01/19at 23:49; Start 01/27/19 at 15:45 Sodium Chloride 35 ml/Fentanyl Citrate 250 mcg/ Ropivacaine 10 ml/ Epidural Dosage Infused (Pha) 50 ml @ 0 mls/hr CONT PRN EPID SEE PROTOCOL TABLE Last administered on 02/01/19at 08:00; Start 01/28/19 at 08:15; Stop 02/01/19 at 10:03; Status DC Throat Lozenges (Cepacol Sore Throat Lozenge) 1 karthikeyan PRN Q2HRS PRN PO SORE THROAT Last administered on 01/28/19at 10:49; Start 01/28/19 at 09:30 Lorazepam (Ativan Inj) 0.5 mg PRN Q6HRS PRN IV ANXIETY AGITATION, 1ST CHOICE Last administered on 01/31/19at 21:13; Start 01/28/19 at 12:30; Stop 02/06/19 at 10:42; Status DC Thiamine HCl 100 mg DAILY IM Last administered on 01/30/19at 09:12; Start 01/28/19 at 13:00; Stop 01/31/19 at 11:44; Status DC Lorazepam (Ativan Inj) 2 mg PRN Q1HR PRN IV For CIWA 8-14 Last administered on 02/06/19at 03:27; Start 01/28/19 at 13:00; Stop 02/06/19 at 10:42; Status DC Lorazepam (Ativan Inj) 4 mg PRN Q1HR PRN IV For CIWA 15 or greater; Start 01/28/19 at 13:00; Stop 02/06/19 at 10:42; Status DC Haloperidol Lactate (Haldol Inj) 5 mg PRN Q4HRS PRN IVP Hallucinatns,Confusn,Delirium Last administered on 02/04/19at 23:47; Start 01/28/19 at 13:00 Diphenhydramine HCl (Benadryl) 25 mg PRN Q15MIN PRN IVP EPS symptoms 2'Haldol admin; Start 01/28/19 at 13:00 Lorazepam (Ativan Inj) 2 mg PRN Q15MIN PRN IV SEE COMMENTS Last administered on 02/05/19at 01:12; Start 01/28/19 at 13:00; Stop 02/06/19 at 10:42; Status DC Lorazepam (Ativan Inj) 4 mg PRN Q15MIN PRN IV SEE COMMENTS Last administered on 02/05/19at 02:29; Start 01/28/19 at 13:00; Stop 02/06/19 at 10:42; Status DC Albuterol/ Ipratropium (Duoneb) 3 ml RTQID NEB Last administered on 02/06/19at 12:04; Start 01/28/19 at 13:00 Non-Formulary Medication (Fluticasone/ Umeclidin/ Vilanter (Trelegy Ellipta 100-62.5-25)) 1 puff DAILY PO ; Start 01/29/19 at 09:00; Status UNV Budesonide (Pulmicort) 0.5 mg RTBID NEB Last administered on 02/06/19at 07:48; Start 01/28/19 at 20:00 Albuterol Sulfate (Ventolin Neb Soln) 2.5 mg PRN Q6HRS PRN INH SHORTNESS OF BREATH; Start 01/28/19 at 14:00 Lorazepam (Ativan) 1 mg PRN Q6HRS PRN PO ANXIETY / AGITATION Last administered on 02/04/19at 12:07; Start 01/28/19 at 14:00; Stop 02/04/19 at 12:58; Status DC Pantoprazole Sodium (Protonix) 40 mg DAILYAC PO Last administered on 02/05/19at 09:13; Start 01/28/19 at 16:30 Metoprolol Tartrate (Lopressor Vial) 12.5 mg BID IVP ; Start 01/29/19 at 21:00; Stop 01/29/19 at 14:50; Status DC Metoprolol Tartrate (Lopressor) 12.5 mg BID PO Last administered on 02/05/19 22:05; Start 01/29/19 at 17:00 Amino Acids/ Glycerin/ Electrolytes 1,000 ml @ 75 mls/hr [id number] IV Last administered on 02/02/19at 18:20; Start 01/30/19 at 11:30; Stop 02/02/19 at 21:59; Status DC Acetaminophen (Tylenol) 650 mg PRN Q6HRS PRN PO fever Last administered on 02/01/19at 08:45; Start 01/31/19 at 01:15 Thiamine Mononitrate (Vitamin B-1) 100 mg DAILY PO Last administered on 02/05/19 09:13; Start 01/31/19 at 12:30 Heparin Sodium (Porcine) (Heparin Sodium) 5,000 unit Q12HR SQ Last administered on 02/06/19at 11:08; Start 01/31/19 at 14:00 Piperacillin Sod/ Tazobactam Sod 3.375 gm/Sodium Chloride 50 ml @ 100 mls/hr Q6HRS IV Last administered on 02/04/19at 05:58; Start 02/01/19 at 10:00; Stop 02/04/19 at 06:32; Status DC Linezolid/Dextrose 300 ml @ 300 mls/hr Q12HR IV Last administered on 02/03/19at 21:30; Start 02/01/19 at 10:00; Stop 02/04/19 at 06:32; Status DC Micafungin Sodium 100 mg/Dextrose 100 ml @ 100 mls/hr Q24H IV Last admin istered on 02/06/19at 11:00; Start 02/01/19 at 11:00 Sodium Chloride 35 ml/Fentanyl Citrate 250 mcg/ Ropivacaine 10 ml/ Epidural Dosage Infused (Pha) 50 ml @ 0 mls/hr CONT PRN EPID SEE PROTOCOL TABLE Last administered on 02/01/19at 11:16; Start 02/01/19 at 10:15; Stop 02/04/19 at 09:09; Status DC Fentanyl Citrate (Fentanyl 2ml Vial) 25 mcg PRN Q5MIN PRN IV MILD PAIN 1-3; Start 02/01/19 at 14:00; Stop 02/02/19 at 13:59; Status DC Fentanyl Citrate (Fentanyl 2ml Vial) 50 mcg PRN Q5MIN PRN IV MODERATE TO SEVERE PAIN Last administered on 02/02/19at 09:09; Start 02/01/19 at 14:00; Stop 02/02/19 at 13:59; Status DC Hydromorphone HCl (Dilaudid) 1 mg PRN Q2HR PRN IV PAIN Last administered on 02/06/19at 09:11; Start 02/01/19 at 16:30; Stop 02/06/19 at 10:42; Status DC Ketorolac Tromethamine (Toradol 30mg Vial) 30 mg 1X ONCE IV Last administered on 02/01/19at 16:43; Start 02/01/19 at 16:30; Stop 02/01/19 at 16:31; Status DC Sodium Chloride 500 ml @ 500 mls/hr 1X ONCE IV Last administered on 02/02/19at 05:37; Start 02/02/19 at 05:30; Stop 02/02/19 at 06:29; Status DC Hydromorphone HCl 30 ml @ 0 mls/hr CONT PRN PRN IV PER PROTOCOL Last a dministered on 02/02/19at 10:32; Start 02/02/19 at 09:00; Stop 02/04/19 at 09:09; Status DC Info (Tpn Per Pharmacy) 1 each PRN DAILY PRN MC SEE COMMENTS Last administered on 02/05/19at 13:14; Start 02/02/19 at 10:00 Sodium Phosphate 20 mmol/Dextrose 256.6667 ml @ 64.167 m... 1X ONCE IV Last administered on 02/02/19at 14:38; Start 02/02/19 at 11:00; Stop 02/02/19 at 14:59; Status DC Furosemide (Lasix) 20 mg 1X ONCE IVP Last administered on 02/02/19at 16:16; Start 02/02/19 at 16:00; Stop 02/02/19 at 16:01; Status DC Lidocaine/Sodium Bicarbonate (Buffered Lidocaine 1%) 3 ml 1X ONCE INJ ; Start 02/02/19 at 14:00; Stop 02/02/19 at 14:05; Status DC Sodium Chloride 80 meq/Potassium Chloride 40 meq/ Sodium Phosphate 13.6 mmol/ Magnesium Sulfate 10 meq/Calcium Gluconate 10 meq/ Multivitamins 10 ml/Chromium/ Copper/Manganese/ Seleni/Zn 1 ml/ Total Parenteral Nutrition/Amino Acids/Dextro se/ Fat Emulsion Intravenous 1,512 ml @ 63 mls/hr TPN CONT IV Last administered on 02/02/19at 21:50; Start 02/02/19 at 22:00; Stop 02/03/19 at 21:59; Status DC Potassium Phosphate 15 mmol/ Sodium Chloride 255 ml @ 127.5 mls/ hr 1X ONCE IV Last administered on 02/03/19at 11:35; Start 02/03/19 at 11:00; Stop 02/03/19 at 12:59; Status DC Potassium Chloride (Klor-Con) 40 meq 1X ONCE PO Last administered on 02/03/19at 21:30; Start 02/03/19 at 11:30; Stop 02/03/19 at 11:31; Status DC Sodium Chloride 120 meq/Potassium Chloride 50 meq/ Sodium Phosphate 20.4 mmol/ Magnesium Sulfate 10 meq/Calcium Gluconate 10 meq/ Multivitamins 10 ml/Chromium/ Copper/Manganese/ Seleni/Zn 1 ml/ Total Parenteral Nutrition/Amino Acids/Dextrose/ Fat Emulsion Intravenous 1,512 ml @ 63 mls/hr TPN CONT IV Last administered on 02/03/19 21:30; Start 02/03/19 at 22:00; Stop 02/04/19 at 21:59; Status DC Potassium Chloride (Klor-Con) 40 meq 1X ONCE PO Last administered on 02/03/19at 21:31; Start 02/03/19 at 21:00; Stop 02/03/19 at 21:01; Status DC Meropenem 500 mg/ Sodium Chloride 50 ml @ 100 mls/hr Q6HRS IV Last administered on 02/06/19at 05:52; Start 02/04/19 at 07:00 Oxycodone/ Acetaminophen (Percocet 5/325) 1 tab PRN Q4HRS PRN PO MODERATE TO SEVERE PAIN Last administered on 02/06/19at 01:34; Start 02/04/19 at 09:15 Docusate Sodium (Colace) 100 mg DAILY PO Last administered on 02/05/19 09:13; Start 02/04/19 at 10:00 Iohexol (Omnipaque 350 Mg/ml) 75 ml 1X ONCE IV Last administered on 02/04/19at 12:30; Start 02/04/19 at 10:15; Stop 02/04/19 at 10:16; Status DC Info (CONTRAST GIVEN -- Rx MONITORING) 1 each PRN DAILY PRN MC SEE COMMENTS; Start 02/04/19 at 10:15; Stop 02/06/19 at 10:14; Status DC Lorazepam (Ativan) 1 mg PRN Q6HRS PRN PO ANXIETY / AGITATION Last administered on 02/04/19at 18:17; Start 02/04/19 at 13:00; Stop 02/06/19 at 10:42; Status DC Sodium Chloride 120 meq/Sodium Phosphate 24 mmol/ Potassium Chloride 50 meq/ Magnesium Sulfate 13 meq/Calcium Gluconate 10 meq/ Multivitamins 10 ml/Chromium/ Copper/Manganese/ Seleni/Zn 1 ml/ Total Parenteral Nutrition/Amino Acids/Dextrose/ Fat Emulsion Intravenous 1,512 ml @ 63 mls/hr TPN CONT IV Last administered on 02/04/19at 22:20; Start 02/04/19 at 22:00; Stop 02/05/19 at 21:59; Status DC Sodium Phosphate 15 mmol/Dextrose 255 ml @ 63.75 mls/ hr 1X ONCE IV Last administered on 02/04/19at 14:23; Start 02/04/19 at 14:00; Stop 02/04/19 at 17:59; Status DC Lorazepam (Ativan Inj) 2 mg PRN Q4HRS PRN IV ANXIETY/AGITATION (USE 2ND) Last administered on 02/04/19at 20:46; Start 02/04/19 at 20:15; Stop 02/06/19 at 10:42; Status DC Sodium Phosphate 20 mmol/Dextrose 256.6667 ml @ 64.167 m... 1X ONCE IV Last administered on 02/05/19at 12:56; Start 02/05/19 at 12:00; Stop 02/05/19 at 15:59; Status DC Sodium Chloride 120 meq/Sodium Phosphate 27 mmol/ Potassium Chloride 50 meq/ Magnesium Sulfate 13 meq/Calcium Gluconate 10 meq/ Multivitamins 10 ml/Chromium/ Copper/Manganese/ Seleni/Zn 1 ml/ Total Parenteral Nutrition/Amino Acids/Dextrose/ Fat Emulsion Intravenous 1,512 ml @ 63 mls/hr TPN CONT IV Last administered on 02/05/19at 23:33; Start 02/05/19 at 22:00; Stop 02/06/19 at 21:59 Lorazepam (Ativan Inj) 0.25 mg PRN Q6HRS PRN IV ANXIETY AGITATION, 1ST CHOICE; Start 02/06/19 at 10:45 Iohexol (Omnipaque 300 Mg/ml) 75 ml 1X ONCE IV Last administered on 02/06/19at 12:38; Start 02/06/19 at 12:00; Stop 02/06/19 at 12:01; Status DC Info (CONTRAST GIVEN -- Rx MONITORING) 1 each PRN DAILY PRN MC SEE COMMENTS; Start 02/06/19 at 11:45; Stop 02/08/19 at 11:44 Active Scripts Active Lactulose 20 Gm/30 Ml Solution 20 Gm PO PRN TID PRN 30 Days Zofran (Ondansetron Hcl) 4 Mg Tablet 1 Tab PO Q6HRS 30 Days Hydrocodone-Apap 5-325 (Hydrocodone Bit/Acetaminophen) 1 Tab Tablet 1 Tab PO PRN Q6HRS PRN 6 Days Pantoprazole Sodium (Pantoprazole Sodium) 40 Mg Tablet.dr 40 Mg PO DAILYAC 30 Days Lorazepam 1 Mg Tablet 1 Mg PO PRN Q6HRS PRN 6 Days Reported Proair Hfa Inhaler (Albuterol Sulfate) 8.5 Gm Hfa.aer.ad 1 Puff INH PRN Q6HRS PRN Trelegy Ellipta 100-62.5-25 (Fluticasone/Umeclidin/Vilanter) 1 Each Blst.w.dev 1 Puff PO DAILY Allergies Allergies: Coded Allergies: No Known Drug Allergies (Unverified , 01/27/19) ROS Review of System Unobtainable Physical Exam Physical Examination General: Well-developed, well-nourished white female in no acute distress HEENT: Normocephalic and�atraumatic. �Temporal arteries�pulsatile and nontender.� Neck: Supple without bruit, no meningismus� Musculoskeletal: Stability:�see neurologic. Gait exam:�see neurologic. Tone:�see neurologic.�Strength:�see neurologic.� Neurological: Mental Status:�orientation, memory, attention span/concentration, language, fund of knowledge: Moans to pain, nonverbal, does not follow commands. Cranial Nerves:�Pupils equal and reactive to light, extraocular movements are�intact. There is no facial asymmetry. Vestibulo-ocular reflex is intact. All other cranial related problems are negative except as mentioned before.�Reflexes:�2+ and symmetric with flexor plantar responses. Motor: normal tone and bulk, withdraws to pain. Coordination and gait:�Not tested. Sensory:�responds to pinprick in all 4 extremities Vitals VITALS Vital Signs Date Time Temp Pulse Resp B/P (MAP) Pulse Ox O2 Delivery O2 Flow Rate FiO2 02/06/19 11:53 98.6 133 20 126/97 (107) 96 Room Air 98.6 02/06/19 09:00 94.0 Labs Labs Laboratory Tests Test 02/05/19 05:45 02/06/19 06:30 White Blood Count 24.4 x10^3/uL (4.0-11.0) 26.2 x10^3/uL (4.0-11.0) Red Blood Count 2.99 x10^6/uL (3.50-5.40) 2.99 x10^6/uL (3.50-5.40) Hemoglobin 9.9 g/dL (12.0-15.5) 9.8 g/dL (12.0-15.5) Hematocrit 29.1 % (36.0-47.0) 29.3 % (36.0-47.0) Mean Corpuscular Volume 97 fL (79-100) 98 fL (79-100) Mean Corpuscular Hemoglobin 33 pg (25-35) 33 pg (25-35) Mean Corpuscular Hemoglobin Concent 34 g/dL (31-37) 34 g/dL (31-37) Red Cell Distribution Width 13.5 % (11.5-14.5) 13.6 % (11.5-14.5) Platelet Count 260 x10^3/uL (140-400) 276 x10^3/uL (140-400) Neutrophils (%) (Auto) 81 % (31-73) 81 % (31-73) Lymphocytes (%) (Auto) 10 % (24-48) 9 % (24-48) Monocytes (%) (Auto) 9 % (0-9) 9 % (0-9) Eosinophils (%) (Auto) 0 % (0-3) 1 % (0-3) Basophils (%) (Auto) 0 % (0-3) 0 % (0-3) Neutrophils # (Auto) 19.6 x10^3/uL (1.8-7.7) 21.3 x10^3/uL (1.8-7.7) Lymphocytes # (Auto) 2.4 x10^3/uL (1.0-4.8) 2.4 x10^3/uL (1.0-4.8) Monocytes # (Auto) 2.2 x10^3/uL (0.0-1.1) 2.3 x10^3/uL (0.0-1.1) Eosinophils # (Auto) 0.1 x10^3/uL (0.0-0.7) 0.2 x10^3/uL (0.0-0.7) Basophils # (Auto) 0.1 x10^3/uL (0.0-0.2) 0.0 x10^3/uL (0.0-0.2) Sodium Level 135 mmol/L (136-145) 140 mmol/L (136-145) Potassium Level 4.1 mmol/L (3.5-5.1) 4.6 mmol/L (3.5-5.1) Chloride Level 103 mmol/L (98-107) 108 mmol/L (98-107) Carbon Dioxide Level 26 mmol/L (21-32) 28 mmol/L (21-32) Anion Gap 6 (6-14) 4 (6-14) Blood Urea Nitrogen 16 mg/dL (7-20) 19 mg/dL (7-20) Creatinine 0.6 mg/dL (0.6-1.0) 0.7 mg/dL (0.6-1.0) Estimated GFR (Cockcroft-Gault) 102.7 85.9 Glucose Level 121 mg/dL (70-99) 188 mg/dL (70-99) Calcium Level 7.5 mg/dL (8.5-10.1) 7.8 mg/dL (8.5-10.1) Phosphorus Level 2.4 mg/dL (2.6-4.7) 3.3 mg/dL (2.6-4.7) Magnesium Level 1.8 mg/dL (1.8-2.4) 2.1 mg/dL (1.8-2.4) Laboratory Tests Test 02/06/19 06:30 White Blood Count 26.2 x10^3/uL (4.0-11.0) Red Blood Count 2.99 x10^6/uL (3.50-5.40) Hemoglobin 9.8 g/dL (12.0-15.5) Hematocrit 29.3 % (36.0-47.0) Mean Corpuscular Volume 98 fL (79-100) Mean Corpuscular Hemoglobin 33 pg (25-35) Mean Corpuscular Hemoglobin Concent 34 g/dL (31-37) Red Cell Distribution Width 13.6 % (11.5-14.5) Platelet Count 276 x10^3/uL (140-400) Neutrophils (%) (Auto) 81 % (31-73) Lymphocytes (%) (Auto) 9 % (24-48) Monocytes (%) (Auto) 9 % (0-9) Eosinophils (%) (Auto) 1 % (0-3) Basophils (%) (Auto) 0 % (0-3) Neutrophils # (Auto) 21.3 x10^3/uL (1.8-7.7) Lymphocytes # (Auto) 2.4 x10^3/uL (1.0-4.8) Monocytes # (Auto) 2.3 x10^3/uL (0.0-1.1) Eosinophils # (Auto) 0.2 x10^3/uL (0.0-0.7) Basophils # (Auto) 0.0 x10^3/uL (0.0-0.2) Sodium Level 140 mmol/L (136-145) Potassium Level 4.6 mmol/L (3.5-5.1) Chloride Level 108 mmol/L (98-107) Carbon Dioxide Level 28 mmol/L (21-32) Anion Gap 4 (6-14) Blood Urea Nitrogen 19 mg/dL (7-20) Creatinine 0.7 mg/dL (0.6-1.0) Estimated GFR (Cockcroft-Gault) 85.9 Glucose Level 188 mg/dL (70-99) Calcium Level 7.8 mg/dL (8.5-10.1) Phosphorus Level 3.3 mg/dL (2.6-4.7) Magnesium Level 2.1 mg/dL (1.8-2.4) Images Images CT HEAD WITHOUT CONTRAST 02/06/2019 10:42 AM Indication: Altered mental status, acute change in mental status Comparison: None Procedure: Multidetector CT imaging of the head was performed without the administration of contrast. Findings: Exam limited by motion artifact. No evidence of acute intracranial hemorrhage is identified. No mass effect or midline shift is seen. Basilar cisterns are grossly patent. No overt acute or subacute ischemic changes identified. Somewhat limited purpose. No acute osseous changes are seen. IMPRESSION: Limited study without evidence of acute intracranial abnormality Assessment/Plan Assessment/Plan Impression: Toxic and metabolic encephalopathy, doubt this is alcohol withdrawal this late. Note that she still has leukocytosis, hypocalcemia, hypophosphatemia, she also had some hypo-magnesium 2 days ago, elevated pro-calcitonin levels. Transaminases and bilirubin were normal on 02/03 Recommendations: Laboratory studies including ammonia level, see orders Electroencephalogram Hold on lumbar puncture Overall prognosis is poor. Thank you for letting me help with the patient's care. REAL RIOJAS MD Feb 06, 2019 13:08
[2019-02-06] MEDS: TPN PER PHARMACY MC PRN (13:42)
--- NOTE | 2019-02-06 14:11 | RAD ---
EXAM: CT Abdomen and Pelvis with IV contrast CLINICAL HISTORY: Post op Whipple procedure, leukocytosis. COMPARISON: 02/01/2019 TECHNIQUE: Helical CT of the abdomen and pelvis was performed following the administration of intravenous contrast. Axial, coronal and sagittal reformatted images were generated. PQRS compliance statement - One or more of the following individualized dose reduction techniques were utilized for this study: 1. Automated exposure control 2. Adjustment of the mA and/or kV according to patient size 3. Use of iterative reconstruction technique FINDINGS: Lower chest: Wedge-shaped airspace opacities in the right greater than left lung bases likely atelectasis. Superimposed infection is not excluded. Small right pleural effusion. Abdomen and Pelvis: Liver is cirrhotic in morphology. Portal vein is grossly patent. Changes of Whipple procedure are seen with pneumobilia and cholecystectomy changes. Spleen is unremarkable. Adrenal glands are unremarkable. Symmetric nephrograms. Subcentimeter hypodense bilateral lower pole renal lesions too small to accurately characterize. No hydronephrosis or hydroureter. There is marked distention of the bladder, this can be correlated for possible voluntary or involuntary causes of urinary retention. There is diffuse thickening of the colon which may be seen with C. difficile colitis. In addition, given hepatic cirrhosis, portal venous colopathy would have similar appearance. Gastrostomy tube is seen within the stomach with the tip extending toward the fundus of the stomach-if this is a gastrojejunostomy tube, the tip was not makes it to the jejunum. Large volume colonic stool content is seen. Moderate abdominal and pelvic ascites. No discrete loculated fluid collection is seen. Evaluation for abdominal and pelvic lymphadenopathy limited given ascites and diffuse postsurgical change. Bones: Osseous structures are grossly stable. IMPRESSION: 1. Diffuse colonic wall thickening may be seen with C. difficile colitis. Alternatively, given hepatic cirrhosis portal venous colopathy but the would have similar appearance. 2. Moderate abdominal and pelvic ascites without loculated fluid collection. The previously seen collection in the gallbladder fossa has since essentially resolved. 3. Gastrojejunostomy tube tip extends to the fundus of the stomach. 4. Marked distention of the bladder may be seen with voluntary or involuntary causes of urinary retention. Electronically signed by: Amrit Leblanc MD (02/06/2019 2:08 PM) [facility]
[2019-02-06] MEDS: HALOPERIDOL LACTATE 5 MG/ML VIAL. IVP PRN ×2 (16:19→21:35)
[2019-02-06] MEDS ORDERED: DEXTROSE 70% IV SCH ×10 (22:00)
[2019-02-06] MEDS ORDERED: TOTAL PARENTERAL NUTRITION IV SCH ×10 (22:00)
[2019-02-06] MEDS ORDERED: AMINO ACID IV SCH ×10 (22:00)
[2019-02-06] MEDS ORDERED: [UNRECOGNIZED DRUG - OTHER] IV SCH ×10 (22:00)
[2019-02-07] MEDS ORDERED: METOPROLOL TARTRATE 5 MG/5 ML VIAL. IVP PRN
[2019-02-07] MEDS: HYDROmorphone 2 MG/ML VIAL IV PRN ×6 (00:24→23:13)
[2019-02-07] MEDS: MEROPENEM 500 MG in IV NORMAL SALINE 50ML 50 ML IV SCH ×4 (00:25→18:16)
[2019-02-07 03:00] VITALS: BP 87/52
[2019-02-07 05:37] LABS: BASO # 0.1 x10^3/uL (0.0-0.2); BASO % 0 % (0-3); EOS # 0.1 x10^3/uL (0.0-0.7); EOS % 1 % (0-3); HEMATOCRIT 28.8 % (36.0-47.0); HEMOGLOBIN 9.5 g/dL (12.0-15.5); LYMPH % 13 % (24-48); MEAN CORPUSCULAR HEMOGLOBIN 33 pg (25-35); MEAN CORPUSCULAR HGB CONC 33 g/dL (31-37); MEAN CORPUSCULAR VOLUME 99 fL (79-100); MONO # 2.8 x10^3/uL (0.0-1.1); MONO % 12 % (0-9); NEUT % 74 % (31-73); PLATELET COUNT 258 x10^3/uL (140-400); RED BLOOD COUNT 2.92 x10^6/uL (3.50-5.40); RED CELL DISTRIBUTION WIDTH 13.9 % (11.5-14.5)
[2019-02-07 05:58] LABS: CALCIUM 7.8 mg/dL (8.5-10.1); CREATININE 0.5 mg/dL (0.6-1.0); GFR 126.7; POTASSIUM 4.4 mmol/L (3.5-5.1)
[2019-02-07] MEDS: BUDESONIDE 0.5 MG/2 ML NEBU. NEB SCH ×2 (08:00→12:04)
[2019-02-07] MEDS: IPRATRPIUM/ALBUTEROL 0.5/2.5MG 3 ML NEBU. NEB SCH ×4 (08:00→18:28)
--- NOTE | 2019-02-07 08:26 | PDOC ---
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 Anxiety History of Present Illness History of Present Illness Ms Iqbal is a 58yo F w/ PMHx COPD, hepatitis C, hyperlipidemia, cirrhosis of the liver, breast cancer (s/p bilateral mastectomy and adjuvant chemotherapy, partial hysterectomy), alcoholism, GERD, gallstones who presented to [facility] on 01/20/2019 with a 3-day history of right upper quadrant abdominal pain, nausea and vomiting. Ultrasound of the abdomen on 01/20/2019 revealed dilated pancreatic and common bile duct with moderately distended gallbladder. CT scan of the abdomen and pelvis on 01/21/2019 revealed a 2.8 cm mass in the head of the pancreas with no lymphadenopathy. MRCP on 01/21/2019 revealed a 2 cm mass at the head of the pancreas causing obstruction. She underwent an attempted ERCP, but was unable to undergo the procedure as she had taken something by mouth prior to the procedure. She underwent Whipple procedure on 01/27/[address] Levin. She underwent pyloric sparing pancreatic gastrostomy, hepaticojejunostomy, G tube placement and liver biopsy. There is evidence of invasive pancreatic adenocarcinoma, well to moderately differentiated involving the vascular groove soft tissue resection margin. Two out of 17 lymph nodes are positive. Liver biopsy still pending. She has been confused for a prolonged period of time now. 02/06:Transferred from ICU 02/05/2019. Her daughter, bedside relates to me some family dysfunction particularly as she was not raised by her mother. Patient very agitated this morning, calmed with pain medications. CT abdomen shows diffuse colon inflammation possibly consistent with c. difficile. Still with WBC > 20. C. diff pending per ID order. Still agitated, awakens to sternal rub. Unable to obtain ROS due to her non-verbal state. 02/05/19 Pt was seen and examined in the ICU Was sleeping Nurses reported that she was agitated and confused overnight 02/04/19 Pt seen and examined in ICU Pt agitated and trying to get out of bed She denies any pain but wants Ativan DW RN and daughter 02/03/19 Pt seen and examined in ICU. Pt is lethargic and unable to open her eyes DW RN 02/02/19 Pt seen and examined in ICU Consulted Dr. Levin by phone in pt's room, confirmed central line can be placed despite previous mastectomy. Pt is lethargic and unable to open her eyes Pushing [employer] Dilaudid LANG RN and daughter and grandson 02/01/19 Pt seen/examined in the ICU Pt is awake, but weak with nausea and pain Chart Reviewed DW RN and family 01/31/19 Pt seen and examined in the ICU Pt is awake/talking and able to tolerate PO meds DW RN Chart Reviewed 9�13�2016 Patient seen and examined in the ICU Patient's daughter still present in his good support for her (Griselda) Discussed with RN Chart reviewed 01/29/19 Pt seen and examined in ICU at bedside s/p Pabloipple SEA drain at RLQ intact Pt sleeping upon entry and with daughter today- appears in NAD Daughter says pt is alcoholic; she also says pt did not sleep well last night LANG RN Vitals Vitals Vital Signs Date Time Temp Pulse Resp B/P (MAP) Pulse Ox O2 Delivery O2 Flow Rate FiO2 02/07/19 03:00 98.5 106 18 87/52 (64) 98 Room Air 98.5 02/06/19 09:00 94.0 Physical Exam Physical Exam GENERAL: min coop. Does not appear toxic and looks comfortable on her right side HEENT: Normocephalic, atraumatic, anicteric. PERRL. NECK: Supple, no JVD, no tenderness. LUNGS: Clear anteriorly. HEART: S1, S2. No gallops or murmurs. ABDOMEN: Soft, mildly distended. Abd wound is clean. Decreased Bowel sounds present. Wound is dressed Less tenderness present. G tube EXTREMITIES: No edema, no cyanosis. mitts moved ext DERMATOLOGIC: Warm, dry. No generalized rash. GENITOURINARY: No Moreno. CENTRAL NERVOUS SYSTEM: moves all 4 extremities. IVs: RIJ - clean General: Alert, No acute distress Heart: Normal S1, Normal S2 Lungs: Clear Abdomen: Soft, Other (dressing dry) Extremities: No clubbing, No cyanosis, No tenderness/swelling Skin: No rashes, No breakdown Labs LABS Laboratory Tests Test 9/21/19 00:00 02/07/19 05:30 02/07/19 06:07 Glucose (Fingerstick) 154 mg/dL (70-99) 157 mg/dL (70-99) White Blood Count 23.0 x10^3/uL (4.0-11.0) Red Blood Count 2.92 x10^6/uL (3.50-5.40) Hemoglobin 9.5 g/dL (12.0-15.5) Hematocrit 28.8 % (36.0-47.0) Mean Corpuscular Volume 99 fL (79-100) Mean Corpuscular Hemoglobin 33 pg (25-35) Mean Corpuscular Hemoglobin Concent 33 g/dL (31-37) Red Cell Distribution Width 13.9 % (11.5-14.5) Platelet Count 258 x10^3/uL (140-400) Neutrophils (%) (Auto) 74 % (31-73) Lymphocytes (%) (Auto) 13 % (24-48) Monocytes (%) (Auto) 12 % (0-9) Eosinophils (%) (Auto) 1 % (0-3) Basophils (%) (Auto) 0 % (0-3) Neutrophils # (Auto) 17.0 x10^3/uL (1.8-7.7) Lymphocytes # (Auto) 3.0 x10^3/uL (1.0-4.8) Monocytes # (Auto) 2.8 x10^3/uL (0.0-1.1) Eosinophils # (Auto) 0.1 x10^3/uL (0.0-0.7) Basophils # (Auto) 0.1 x10^3/uL (0.0-0.2) Erythrocyte Sedimentation Rate 24 (0-25) Sodium Level 143 mmol/L (136-145) Potassium Level 4.4 mmol/L (3.5-5.1) Chloride Level 113 mmol/L (98-107) Carbon Dioxide Level 26 mmol/L (21-32) Anion Gap 4 (6-14) Blood Urea Nitrogen 21 mg/dL (7-20) Creatinine 0.5 mg/dL (0.6-1.0) Estimated GFR (Cockcroft-Gault) 126.7 Glucose Level 163 mg/dL (70-99) Calcium Level 7.8 mg/dL (8.5-10.1) Ammonia 22 mcmol/L (11-34) Thyroid Stimulating Hormone (TSH) 2.306 uIU/mL (0.358-3.74) Comment Review of Relevant I have reviewed the following items dante (where applicable) has been applied. Labs Laboratory Tests Test 02/06/19 06:30 02/07/19 00:00 02/07/19 05:30 02/07/19 06:07 White Blood Count 26.2 x10^3/uL (4.0-11.0) 23.0 x10^3/uL (4.0-11.0) Red Blood Count 2.99 x10^6/uL (3.50-5.40) 2.92 x10^6/uL (3.50-5.40) Hemoglobin 9.8 g/dL (12.0-15.5) 9.5 g/dL (12.0-15.5) Hematocrit 29.3 % (36.0-47.0) 28.8 % (36.0-47.0) Mean Corpuscular Volume 98 fL (79-100) 99 fL (79-100) Mean Corpuscular Hemoglobin 33 pg (25-35) 33 pg (25-35) Mean Corpuscular Hemoglobin Concent 34 g/dL (31-37) 33 g/dL (31-37) Red Cell Distribution Width 13.6 % (11.5-14.5) 13.9 % (11.5-14.5) Platelet Count 276 x10^3/uL (140-400) 258 x10^3/uL (140-400) Neutrophils (%) (Auto) 81 % (31-73) 74 % (31-73) Lymphocytes (%) (Auto) 9 % (24-48) 13 % (24-48) Monocytes (%) (Auto) 9 % (0-9) 12 % (0-9) Eosinophils (%) (Auto) 1 % (0-3) 1 % (0-3) Basophils (%) (Auto) 0 % (0-3) 0 % (0-3) Neutrophils # (Auto) 21.3 x10^3/uL (1.8-7.7) 17.0 x10^3/uL (1.8-7.7) Lymphocytes # (Auto) 2.4 x10^3/uL (1.0-4.8) 3.0 x10^3/uL (1.0-4.8) Monocytes # (Auto) 2.3 x10^3/uL (0.0-1.1) 2.8 x10^3/uL (0.0-1.1) Eosinophils # (Auto) 0.2 x10^3/uL (0.0-0.7) 0.1 x10^3/uL (0.0-0.7) Basophils # (Auto) 0.0 x10^3/uL (0.0-0.2) 0.1 x10^3/uL (0.0-0.2) Sodium Level 140 mmol/L (136-145) 143 mmol/L (136-145) Potassium Level 4.6 mmol/L (3.5-5.1) 4.4 mmol/L (3.5-5.1) Chloride Level 108 mmol/L (98-107) 113 mmol/L (98-107) Carbon Dioxide Level 28 mmol/L (21-32) 26 mmol/L (21-32) Anion Gap 4 (6-14) 4 (6-14) Blood Urea Nitrogen 19 mg/dL (7-20) 21 mg/dL (7-20) Creatinine 0.7 mg/dL (0.6-1.0) 0.5 mg/dL (0.6-1.0) Estimated GFR (Cockcroft-Gault) 85.9 126.7 Glucose Level 188 mg/dL (70-99) 163 mg/dL (70-99) Calcium Level 7.8 mg/dL (8.5-10.1) 7.8 mg/dL (8.5-10.1) Phosphorus Level 3.3 mg/dL (2.6-4.7) Magnesium Level 2.1 mg/dL (1.8-2.4) Glucose (Fingerstick) 154 mg/dL (70-99) 157 mg/dL (70-99) Erythrocyte Sedimentation Rate 24 (0-25) Ammonia 22 mcmol/L (11-34) Thyroid Stimulating Hormone (TSH) 2.306 uIU/mL (0.358-3.74) Laboratory Tests Test 02/07/19 00:00 02/07/19 05:30 02/07/19 06:07 Glucose (Fingerstick) 154 mg/dL (70-99) 157 mg/dL (70-99) White Blood Count 23.0 x10^3/uL (4.0-11.0) Red Blood Count 2.92 x10^6/uL (3.50-5.40) Hemoglobin 9.5 g/dL (12.0-15.5) Hematocrit 28.8 % (36.0-47.0) Mean Corpuscular Volume 99 fL (79-100) Mean Corpuscular Hemoglobin 33 pg (25-35) Mean Corpuscular Hemoglobin Concent 33 g/dL (31-37) Red Cell Distribution Width 13.9 % (11.5-14.5) Platelet Count 258 x10^3/uL (140-400) Neutrophils (%) (Auto) 74 % (31-73) Lymphocytes (%) (Auto) 13 % (24-48) Monocytes (%) (Auto) 12 % (0-9) Eosinophils (%) (Auto) 1 % (0-3) Basophils (%) (Auto) 0 % (0-3) Neutrophils # (Auto) 17.0 x10^3/uL (1.8-7.7) Lymphocytes # (Auto) 3.0 x10^3/uL (1.0-4.8) Monocytes # (Auto) 2.8 x10^3/uL (0.0-1.1) Eosinophils # (Auto) 0.1 x10^3/uL (0.0-0.7) Basophils # (Auto) 0.1 x10^3/uL (0.0-0.2) Erythrocyte Sedimentation Rate 24 (0-25) Sodium Level 143 mmol/L (136-145) Potassium Level 4.4 mmol/L (3.5-5.1) Chloride Level 113 mmol/L (98-107) Carbon Dioxide Level 26 mmol/L (21-32) Anion Gap 4 (6-14) Blood Urea Nitrogen 21 mg/dL (7-20) Creatinine 0.5 mg/dL (0.6-1.0) Estimated GFR (Cockcroft-Gault) 126.7 Glucose Level 163 mg/dL (70-99) Calcium Level 7.8 mg/dL (8.5-10.1) Ammonia 22 mcmol/L (11-34) Thyroid Stimulating Hormone (TSH) 2.306 uIU/mL (0.358-3.74) Microbiology 02/01/19 Urine Culture - Final, Complete 02/01/19 Urine Culture Result 1 (WINSTON) - Final, Complete 02/01/19 Blood Culture - Final, Complete NO GROWTH AFTER 5 DAYS Medications Current Medications Ondansetron HCl (Zofran) 4 mg PRN Q6HRS PRN IV NAUSEA/VOMITING; Start 01/27/19 at 07:00; Stop 01/28/19 at 06:59; Status DC Fentanyl Citrate (Fentanyl 2ml Vial) 25 mcg PRN Q5MIN PRN IV MILD PAIN 1-3; Start 01/27/19 at 07:00; Stop 01/28/19 at 06:59; Status DC Fentanyl Citrate (Fentanyl 2ml Vial) 50 mcg PRN Q5MIN PRN IV MODERATE TO SEVERE PAIN; Start 01/27/19 at 07:00; Stop 01/28/19 at 06:59; Status DC Morphine Sulfate (Morphine Sulfate) 1 mg PRN Q10MIN PRN IV SEVERE PAIN 7-10; Start 01/27/19 at 07:00; Stop 01/28/19 at 06:59; Status DC Ringer's Solution 1,000 ml @ 30 mls/hr Q24H IV Last administered on 01/27/19at 08:15; Start 01/27/19 at 07:00; Stop 01/27/19 at 18:59; Status DC Hydromorphone HCl (Dilaudid) 0.5 mg PRN Q10MIN PRN IV SEV PAIN, Second choice; Start 01/27/19 at 07:00; Stop 01/28/19 at 06:59; Status DC Prochlorperazine Edisylate (Compazine) 5 mg PACU PRN PRN IV NAUSEA, MRX1 Last administered on 01/28/19at 03:33; Start 01/27/19 at 07:00; Stop 01/28/19 at 06:59; Status DC Cefoxitin Sodium (Mefoxin) 2 gm 1X PREOP PRN IVP SURGERY Last administered on 01/27/19at 12:18; Start 01/27/19 at 06:00; Stop 01/28/19 at 10:13; Status DC Sevoflurane (Ultane) 90 ml STK-MED ONCE IH ; Start 01/27/19 at 09:11; Stop 01/27/19 at 09:11; Status DC Rocuronium Stewart (Zemuron) 50 mg STK-MED ONCE .ROUTE ; Start 01/27/19 at 09:11; Stop 01/27/19 at 09:11; Status DC Fentanyl Citrate (Fentanyl 2ml Vial) 100 mcg STK-MED ONCE .ROUTE ; Start 01/27/19 at 09:11; Stop 01/27/19 at 09:11; Status DC Neostigmine Methylsulfate (Neostigmine Methylsulfate) 5 mg STK-MED ONCE .ROUTE ; Start 01/27/19 at 09:11; Stop 01/27/19 at 09:11; Status DC Midazolam HCl (Versed) 2 mg STK-MED ONCE .ROUTE ; Start 01/27/19 at 09:11; Stop 01/27/19 at 09:11; Status DC Glycopyrrolate (Robinul) 1 mg STK-MED ONCE .ROUTE ; Start 01/27/19 at 09:11; Stop 01/27/19 at 09:11; Status DC Phenylephrine HCl (Bret-Synephrine Inj) 10 mg STK-MED ONCE .ROUTE ; Start 01/27/19 at 09:11; Stop 01/27/19 at 09:12; Status DC Dexamethasone Sodium Phosphate (Decadron) 4 mg STK-MED ONCE .ROUTE ; Start 01/27/19 at 09:11; Stop 01/27/19 at 09:12; Status DC Ondansetron HCl (Zofran) 4 mg STK-MED ONCE .ROUTE ; Start 01/27/19 at 09:12; Stop 01/27/19 at 09:12; Status DC Lidocaine HCl (Lidocaine Pf 2% Vial) 5 ml STK-MED ONCE .ROUTE ; Start 01/27/19 at 09:12; Stop 01/27/19 at 09:12; Status DC Propofol 20 ml @ As Directed STK-MED ONCE IV ; Start 01/27/19 at 09:12; Stop 01/27/19 at 09:12; Status DC Sodium Chloride (Normal Saline Flush) 3 ml QSHIFT PRN IV AFTER MEDS AND BLOOD DRAWS; Start 01/27/19 at 09:30; Stop 02/03/19 at 09:09; Status DC Ibuprofen (Motrin) 400 mg PRN Q6HRS PRN PO MILD PAIN 1-3; Start 01/27/19 at 09:30 Naloxone HCl (Narcan) 0.4 mg PRN Q2MIN PRN IV SEE INSTRUCTIONS; Start 01/27/19 at 09:30; Stop 01/31/19 at 09:15; Status DC Sodium Chloride 1,000 ml @ 25 mls/hr Q24H IV ; Start 01/27/19 at 09:28; Stop 01/30/19 at 14:52; Status DC Ondansetron HCl (Zofran) 4 mg PRN Q6HRS PRN IV Nausea, 2nd Choice; Start 01/27/19 at 09:30; Status Cancel Epinephrine HCl (EPINEPHrine SYRINGE) 1 mg STK-MED ONCE .ROUTE ; Start 01/27/19 at 10:15; Stop 01/27/19 at 10:16; Status DC Lidocaine HCl (Lidocaine Pf 2% Vial) 5 ml STK-MED ONCE .ROUTE ; Start 01/27/19 at 10:15; Stop 01/27/19 at 10:16; Status DC Ropivacaine (Naropin 0.5%) 20 ml STK-MED ONCE .ROUTE ; Start 01/27/19 at 10:17; Stop 01/27/19 at 10:18; Status DC Cellulose (Surgicel Hemostat 4x8) 1 each STK-MED ONCE .ROUTE Last administered on 01/27/19at 11:25; Start 01/27/19 at 11:24; Stop 01/27/19 at 11:25; Status DC Cellulose (Surgicel Hemostat 4x8) 1 each STK-MED ONCE .ROUTE Last administered on 01/27/19at 11:39; Start 01/27/19 at 11:38; Stop 01/27/19 at 11:38; Status DC Rocuronium Stewart (Zemuron) 50 mg STK-MED ONCE .ROUTE ; Start 01/27/19 at 12:09; Stop 01/27/19 at 12:09; Status DC Cefoxitin Sodium (Mefoxin) 2 gm 1X ONCE IVP Last administered on 01/27/19at 12:33; Start 01/27/19 at 12:30; Stop 01/27/19 at 12:31; Status DC Phenylephrine HCl (Bret-Synephrine Inj) 10 mg STK-MED ONCE .ROUTE ; Start 01/27/19 at 14:49; Stop 01/27/19 at 14:49; Status DC Sodium Chloride 35 ml/Fentanyl Citrate 250 mcg/ Ropivacaine 10 ml/ Epidural Dosage Infused (Pha) 50 ml @ 0 mls/hr CONT EPID ; Start 01/27/19 at 15:00; Status UNV Sodium Chloride 35 ml/Fentanyl Citrate 250 mcg/ Ropivacaine 10 ml/ Epidural Dosage Infused (Pha) 50 ml @ 0 mls/hr CONT PRN EPID SEE PROTOCOL TABLE Last administered on 01/28/19at 05:00; Start 01/27/19 at 15:00; Stop 01/28/19 at 08:11; Status DC Cefoxitin Sodium (Mefoxin) 2 gm 1X PREOP PRN IVP SURGERY Last administered on 01/27/19at 16:47; Start 01/27/19 at 15:15; Stop 01/28/19 at 10:13; Status DC Famotidine (Pepcid Vial) 20 mg BID IVP Last administered on 02/07/19at 00:14; Start 01/27/19 at 21:00 Enoxaparin Sodium (Lovenox 40mg Syringe) 40 mg Q24H SQ Last administered on 01/29/19at 12:24; Start 01/28/19 at 09:00; Stop 01/29/19 at 17:14; Status DC Sodium Chloride (Normal Saline Flush) 3 ml QSHIFT PRN IV AFTER MEDS AND BLOOD DRAWS; Start 01/27/19 at 15:45 Ringer's Solution 1,000 ml @ 100 mls/hr Q10H IV Last administered on 01/30/19at 03:20; Start 01/27/19 at 15:33; Stop 01/30/19 at 14:52; Status DC Naloxone HCl (Narcan) 0.4 mg PRN Q2MIN PRN IV SEE INSTRUCTIONS; Start 01/27/19 at 15:45 Sodium Chloride 1,000 ml @ 25 mls/hr Q24H IV ; Start 01/27/19 at 15:33; Stop 01/28/19 at 15:52; Status DC Ondansetron HCl (Zofran) 4 mg PRN Q6HRS PRN IV NAUESA, 1ST CHOICE Last administered on 02/01/19at 23:49; Start 01/27/19 at 15:45 Sodium Chloride 35 ml/Fentanyl Citrate 250 mcg/ Ropivacaine 10 ml/ Epidural Dosage Infused (Pha) 50 ml @ 0 mls/hr CONT PRN EPID SEE PROTOCOL TABLE Last administered on 02/01/19at 08:00; Start 01/28/19 at 08:15; Stop 02/01/19 at 10:03; Status DC Throat Lozenges (Cepacol Sore Throat Lozenge) 1 karthikeyan PRN Q2HRS PRN PO SORE THROAT Last administered on 01/28/19at 10:49; Start 01/28/19 at 09:30 Lorazepam (Ativan Inj) 0.5 mg PRN Q6HRS PRN IV ANXIETY AGITATION, 1ST CHOICE Last administered on 01/31/19at 21:13; Start 01/28/19 at 12:30; Stop 02/06/19 at 10:42; Status DC Thiamine HCl 100 mg DAILY IM Last administered on 01/30/19at 09:12; Start 04/07 at 13:00; Stop 01/31/19 at 11:44; Status DC Lorazepam (Ativan Inj) 2 mg PRN Q1HR PRN IV For CIWA 8-14 Last administered on 02/06/19at 03:27; Start 01/28/19 at 13:00; Stop 02/06/19 at 10:42; Status DC Lorazepam (Ativan Inj) 4 mg PRN Q1HR PRN IV For CIWA 15 or greater; Start 01/28/19 at 13:00; Stop 02/06/19 at 10:42; Status DC Haloperidol Lactate (Haldol Inj) 5 mg PRN Q4HRS PRN IVP Hallucinatns,Confusn,Delirium Last administered on 02/06/19at 21:35; Start 01/28/19 at 13:00 Diphenhydramine HCl (Benadryl) 25 mg PRN Q15MIN PRN IVP EPS symptoms 2'Haldol admin; Start 01/28/19 at 13:00 Lorazepam (Ativan Inj) 2 mg PRN Q15MIN PRN IV SEE COMMENTS Last administered on 02/05/19at 01:12; Start 01/28/19 at 13:00; Stop 02/06/19 at 10:42; Status DC Lorazepam (Ativan Inj) 4 mg PRN Q15MIN PRN IV SEE COMMENTS Last administered on 02/05/19at 02:29; Start 01/28/19 at 13:00; Stop 02/06/19 at 10:42; Status DC Albuterol/ Ipratropium (Duoneb) 3 ml RTQID NEB Last administered on 02/06/19at 12:04; Start 01/28/19 at 13:00 Non-Formulary Medication (Fluticasone/ Umeclidin/ Vilanter (Trelegy Ellipta 100-62.5-25)) 1 puff DAILY PO ; Start 01/29/19 at 09:00; Status UNV Budesonide (Pulmicort) 0.5 mg RTBID NEB Last administered on 02/06/19at 07:48; Start 01/28/19 at 20:00 Albuterol Sulfate (Ventolin Neb Soln) 2.5 mg PRN Q6HRS PRN INH SHORTNESS OF BREATH; Start 01/28/19 at 14:00 Lorazepam (Ativan) 1 mg PRN Q6HRS PRN PO ANXIETY / AGITATION Last administered on 02/04/19at 12:07; Start 01/28/19 at 14:00; Stop 02/04/19 at 12:58; Status DC Pantoprazole Sodium (Protonix) 40 mg DAILYAC PO Last administered on 02/05/19at 09:13; Start 01/28/19 at 16:30 Metoprolol Tartrate (Lopressor Vial) 12.5 mg BID IVP ; Start 01/29/19 at 21:00; Stop 01/29/19 at 14:50; Status DC Metoprolol Tartrate (Lopressor) 12.5 mg BID PO Last administered on 02/05/19at 22:05; Start 01/29/19 at 17:00 Amino Acids/ Glycerin/ Electrolytes 1,000 ml @ 75 mls/hr [id number] IV Last administered on 02/02/19at 18:20; Start 01/30/19 at 11:30; Stop 02/02/19 at 21:59; Status DC Acetaminophen (Tylenol) 650 mg PRN Q6HRS PRN PO fever Last administered on 02/01/19 08:45; Start 01/31/19 at 01:15 Thiamine Mononitrate (Vitamin B-1) 100 mg DAILY PO Last administered on 02/05/19at 09:13; Start 01/31/19 at 12:30 Heparin Sodium (Porcine) (Heparin Sodium) 5,000 unit Q12HR SQ Last administered on 02/06/19at 22:26; Start 01/31/19 at 14:00 Piperacillin Sod/ Tazobactam Sod 3.375 gm/Sodium Chloride 50 ml @ 100 mls/hr Q6HRS IV Last administered on 02/04/19at 05:58; Start 02/01/19 at 10:00; Stop 02/04/19 at 06:32; Status DC Linezolid/Dextrose 300 ml @ 300 mls/hr Q12HR IV Last administered on 02/03/19at 21:30; Start 02/01/19 at 10:00; Stop 02/04/19 at 06:32; Status DC Micafungin Sodium 100 mg/Dextrose 100 ml @ 100 mls/hr Q24H IV Last administered on 02/06/19at 11:00; Start 02/01/19 at 11:00 Sodium Chloride 35 ml/Fentanyl Citrate 250 mcg/ Ropivacaine 10 ml/ Epidural Dosage Infused (Pha) 50 ml @ 0 mls/hr CONT PRN EPID SEE PROTOCOL TABLE Last administered on 02/01/19 11:16; Start 02/01/19 at 10:15; Stop 02/04/19 at 09:09; Status DC Fentanyl Citrate (Fentanyl 2ml Vial) 25 mcg PRN Q5MIN PRN IV MILD PAIN 1-3; Start 02/01/19 at 14:00; Stop 02/02/19 at 13:59; Status DC Fentanyl Citrate (Fentanyl 2ml Vial) 50 mcg PRN Q5MIN PRN IV MODERATE TO SEVERE PAIN Last administered on 02/02/19at 09:09; Start 02/01/19 at 14:00; Stop 02/02/19 at 13:59; Status DC Hydromorphone HCl (Dilaudid) 1 mg PRN Q2HR PRN IV PAIN Last administered on 02/06/19at 09:11; Start 02/01/19 at 16:30; Stop 02/06/19 at 10:42; Status DC Ketorolac Tromethamine (Toradol 30mg Vial) 30 mg 1X ONCE IV Last administered on 02/01/19at 16:43; Start 02/01/19 at 16:30; Stop 02/01/19 at 16:31; Status DC Sodium Chloride 500 ml @ 500 mls/hr 1X ONCE IV Last administered on 02/02/19at 05:37; Start 02/02/19 at 05:30; Stop 02/02/19 at 06:29; Status DC Hydromorphone HCl 30 ml @ 0 mls/hr CONT PRN PRN IV PER PROTOCOL Last administer ed on 02/02/19at 10:32; Start 02/02/19 at 09:00; Stop 02/04/19 at 09:09; Status DC Info (Tpn Per Pharmacy) 1 each PRN DAILY PRN MC SEE COMMENTS Last administered on 02/06/19at 13:42; Start 02/02/19 at 10:00 Sodium Phosphate 20 mmol/Dextrose 256.6667 ml @ 64.167 m... 1X ONCE IV Last administered on 02/02/19at 14:38; Start 02/02/19 at 11:00; Stop 02/02/19 at 14:59; Status DC Furosemide (Lasix) 20 mg 1X ONCE IVP Last administered on 02/02/19at 16:16; Start 02/02/19 at 16:00; Stop 02/02/19 at 16:01; Status DC Lidocaine/Sodium Bicarbonate (Buffered Lidocaine 1%) 3 ml 1X ONCE INJ ; Start 02/02/19 at 14:00; Stop 02/02/19 at 14:05; Status DC Sodium Chloride 80 meq/Potassium Chloride 40 meq/ Sodium Phosphate 13.6 mmol/ Magnesium Sulfate 10 meq/Calcium Gluconate 10 meq/ Multivitamins 10 ml/Chromium/ Copper/Manganese/ Seleni/Zn 1 ml/ Total Parenteral Nutrition/Amino Acids/Dextrose/ Fat Emulsion Intravenous 1,512 ml @ 63 mls/hr TPN CONT IV Last administered on 02/02/19at 21:50; Start 02/02/19 at 22:00; Stop 02/03/19 at 21:59; Status DC Potassium Phosphate 15 mmol/ Sodium Chloride 255 ml @ 127.5 mls/ hr 1X ONCE IV Last administered on 02/03/19at 11:35; Start 02/03/19 at 11:00; Stop 02/03/19 at 12:59; Status DC Potassium Chloride (Klor-Con) 40 meq 1X ONCE PO Last administered on 02/03/19at 21:30; Start 02/03/19 at 11:30; Stop 02/03/19 at 11:31; Status DC Sodium Chloride 120 meq/Potassium Chloride 50 meq/ Sodium Phosphate 20.4 mmol/ Magnesium Sulfate 10 meq/Calcium Gluconate 10 meq/ Multivitamins 10 ml/Chromium/ Copper/Manganese/ Seleni/Zn 1 ml/ Total Parenteral Nutrition/Amino Acids/Dextrose/ Fat Emulsion Intravenous 1,512 ml @ 63 mls/hr TPN CONT IV Last administered on 02/03/19at 21:30; Start 02/03/19 at 22:00; Stop 02/04/19 at 21:59; Status DC Potassium Chloride (Klor-Con) 40 meq 1X ONCE PO Last administered on 02/03/19at 21:31; Start 02/03/19 at 21:00; Stop 02/03/19 at 21:01; Status DC Meropenem 500 mg/ Sodium Chloride 50 ml @ 100 mls/hr Q6HRS IV Last administered on 02/07/19at 05:20; Start 02/04/19 at 07:00 Oxycodone/ Acetaminophen (Percocet 5/325) 1 tab PRN Q4HRS PRN PO MODERATE TO SEVERE PAIN Last administered on 02/06/19at 01:34; Start 02/04/19 at 09:15 Docusate Sodium (Colace) 100 mg DAILY PO Last administered on 02/05/19at 09:13; Start 02/04/19 at 10:00 Iohexol (Omnipaque 350 Mg/ml) 75 ml 1X ONCE IV Last administered on 02/04/19at 12:30; Start 02/04/19 at 10:15; Stop 02/04/19 at 10:16; Status DC Info (CONTRAST GIVEN -- Rx MONITORING) 1 each PRN DAILY PRN MC SEE COMMENTS; Start 02/04/19 at 10:15; Stop 02/06/19 at 10:14; Status DC Lorazepam (Ativan) 1 mg PRN Q6HRS PRN PO ANXIETY / AGITATION Last administered on 02/04/19at 18:17; Start 02/04/19 at 13:00; Stop 02/06/19 at 10:42; Status DC Sodium Chloride 120 meq/Sodium Phosphate 24 mmol/ Potassium Chloride 50 meq/ Magnesium Sulfate 13 meq/Calcium Gluconate 10 meq/ Multivitamins 10 ml/Chromium/ Copper/Manganese/ Seleni/Zn 1 ml/ Total Parenteral Nutrition/Amino Acids/Dextrose/ Fat Emulsion Intravenous 1,512 ml @ 63 mls/hr TPN CONT IV Last administered on 02/04/19at 22:20; Start 02/04/19 at 22:00; Stop 02/05/19 at 21:59; Status DC Sodium Phosphate 15 mmol/Dextrose 255 ml @ 63.75 mls/ hr 1X ONCE IV Last administered on 02/04/19at 14:23; Start 02/04/19 at 14:00; Stop 02/04/19 at 17:59; Status DC Lorazepam (Ativan Inj) 2 mg PRN Q4HRS PRN IV ANXIETY/AGITATION (USE 2ND) Last administered on 02/04/19at 20:46; Start 02/04/19 at 20:15; Stop 02/06/19 at 10:42; Status DC Sodium Phosphate 20 mmol/Dextrose 256.6667 ml @ 64.167 m... 1X ONCE IV Last administered on 02/05/19at 12:56; Start 02/05/19 at 12:00; Stop 02/05/19 at 15:59; Status DC Sodium Chloride 120 meq/Sodium Phosphate 27 mmol/ Potassium Chloride 50 meq/ Magnesium Sulfate 13 meq/Calcium Gluconate 10 meq/ Multivitamins 10 ml/Chromium/ Copper/Manganese/ Seleni/Zn 1 ml/ Total Parenteral Nutrition/Amino Acids/Dextrose/ Fat Emulsion Intravenous 1,512 ml @ 63 mls/hr TPN CONT IV Last administered on 02/05/19at 23:33; Start 02/05/19 at 22:00; Stop 02/06/19 at 21:59; Status DC Lorazepam (Ativan Inj) 0.25 mg PRN Q6HRS PRN IV ANXIETY AGITATION, 1ST CHOICE Last administered on 02/06/19at 21:11; Start 02/06/19 at 10:45 Iohexol (Omnipaque 300 Mg/ml) 75 ml 1X ONCE IV Last administered on 02/06/19at 12:38; Start 02/06/19 at 12:00; Stop 02/06/19 at 12:01; Status DC Info (CONTRAST GIVEN -- Rx MONITORING) 1 each PRN DAILY PRN MC SEE COMMENTS; Start 02/06/19 at 11:45; Stop 02/08/19 at 11:44 Sodium Chloride 100 meq/Sodium Phosphate 20 mmol/ Potassium Chloride 50 meq/ Magnesium Sulfate 13 meq/Calcium Gluconate 10 meq/ Multivitamins 10 ml/Chromium/ Copper/Manganese/ Seleni/Zn 1 ml/ Total Parenteral Nutrition/Amino Acids/Dextrose/ Fat Emulsion Intravenous 1,512 ml @ 63 mls/hr TPN CONT IV Last administered on 02/06/19at 22:05; Start 02/06/19 at 22:00; Stop 02/07/19 at 21:59 Metronidazole 100 ml @ 100 mls/hr Q6H IV Last administered on 02/07/19at 03:54; Start 02/06/19 at 16:00 Hydromorphone HCl (Dilaudid) 1 mg PRN Q2HR PRN IV PAIN Last administered on 02/07/19at 04:48; Start 02/07/19 at 00:00 Metoprolol Tartrate (Lopressor Vial) 5 mg PRN Q6HRS PRN IVP hypertension; Start 02/07/19 at 00:00 Active Scripts Active Lactulose 20 Gm/30 Ml Solution 20 Gm PO PRN TID PRN 30 Days Zofran (Ondansetron Hcl) 4 Mg Tablet 1 Tab PO Q6HRS 30 Days Hydrocodone-Apap 5-325 (Hydrocodone Bit/Acetaminophen) 1 Tab Tablet 1 Tab PO PRN Q6HRS PRN 6 Days Pantoprazole Sodium (Pantoprazole Sodium) 40 Mg Tablet.dr 40 Mg PO DAILYAC 30 Days Lorazepam 1 Mg Tablet 1 Mg PO PRN Q6HRS PRN 6 Days Reported Proair Hfa Inhaler (Albuterol Sulfate) 8.5 Gm Hfa.aer.ad 1 Puff INH PRN Q6HRS PRN Trelegy Ellipta 100-62.5-25 (Fluticasone/Umeclidin/Vilanter) 1 Each Blst.w.dev 1 Puff PO DAILY Vitals/I & O Vital Sign - Last 24 Hours 02/06/19 02/06/19 02/06/19 02/06/19 09:00 09:11 11:53 15:00 Temp 97.6 98.6 98.3 97.6 98.6 98.3 Pulse 124 133 126 Resp B/P (MAP) 124/72 (89) 126/97 (107) 115/64 (81) Pulse Ox 94 96 96 O2 Delivery Room Air Room Air Room Air Room Air O2 Flow Rate 94.0 02/06/19 02/06/19 02/07/19 19:00 23:00 03:00 Temp 97.8 98.5 97.8 98.5 Pulse 120 129 106 Resp B/P (MAP) 121/70 (87) 101/69 (80) 87/52 (64) Pulse Ox 98 96 98 O2 Delivery Room Air Room Air Room Air Intake and Output 02/06/19 02/06/19 02/07/19 15:00 23:00 07:00 Intake Total 0 ml 1262 ml 50 ml Output Total 1 ml 900 ml 325 ml Balance -1 ml 362 ml -275 ml TAMAR CHAMPAGNE MD Feb 07, 2019 08:26
[2019-02-07] MEDS: HEPARIN for SUB-Q USE 5,000 UNIT/ML VIAL. SQ SCH ×2 (09:00→23:02)
[2019-02-07] MEDS: DOCUSATE SODIUM 100 MG CAPSULE. PO SCH (09:00)
[2019-02-07 09:01] VITALS: BP 122/67
[2019-02-07] MEDS: THIAMINE 100 MG TABLET. PO SCH (09:32)
[2019-02-07] MEDS: PANTOPRAZOLE 40 MG TABLET.DR. PO SCH (09:32)
[2019-02-07] MEDS: METOPROLOL TART IMMED RELEASE 25 MG TABLET. PO SCH ×2 (09:34→21:00)
[2019-02-07] MEDS: FAMOTIDINE 20 MG/2 ML VIAL IVP SCH ×2 (09:34→22:56)
[2019-02-07] MEDS: MICAFUNGIN 100 MG in IV DEXTROSE 5% 100ML 100 ML IV SCH (09:37)
--- NOTE | 2019-02-07 11:34 | PDOC ---
Infectious Disease Note Subjective Subjective No fevers or diarrhea reported ROS ROS unobtainable Vital Sign Vital Signs Vital Signs Date Time Temp Pulse Resp B/P (MAP) Pulse Ox O2 Delivery O2 Flow Rate FiO2 02/07/19 10:55 93 Room Air 94.0 02/07/19 09:35 16 02/07/19 09:35 130 122/67 02/07/19 09:01 99.1 99.1 Physical Exam PHYSICAL EXAM GENERAL: Resting quietly, mittens on HEENT: Oral cavity dry LUNGS: Clear anteriorly. HEART: S1, S2. No gallops or murmurs. ABDOMEN: Soft, mildly distended. Abd wound dressed. GJ tube intact : [facility]no (02/06) EXTREMITIES: No edema, no cyanosis. Right foot bandaged DERMATOLOGIC: Warm, dry. No generalized rash. [facility] - clean Labs Lab Laboratory Tests Test 02/07/19 00:00 02/07/19 05:30 02/07/19 06:07 Glucose (Fingerstick) 154 mg/dL (70-99) 157 mg/dL (70-99) White Blood Count 23.0 x10^3/uL (4.0-11.0) Red Blood Count 2.92 x10^6/uL (3.50-5.40) Hemoglobin 9.5 g/dL (12.0-15.5) Hematocrit 28.8 % (36.0-47.0) Mean Corpuscular Volume 99 fL (79-100) Mean Corpuscular Hemoglobin 33 pg (25-35) Mean Corpuscular Hemoglobin Concent 33 g/dL (31-37) Red Cell Distribution Width 13.9 % (11.5-14.5) Platelet Count 258 x10^3/uL (140-400) Neutrophils (%) (Auto) 74 % (31-73) Lymphocytes (%) (Auto) 13 % (24-48) Monocytes (%) (Auto) 12 % (0-9) Eosinophils (%) (Auto) 1 % (0-3) Basophils (%) (Auto) 0 % (0-3) Neutrophils # (Auto) 17.0 x10^3/uL (1.8-7.7) Lymphocytes # (Auto) 3.0 x10^3/uL (1.0-4.8) Monocytes # (Auto) 2.8 x10^3/uL (0.0-1.1) Eosinophils # (Auto) 0.1 x10^3/uL (0.0-0.7) Basophils # (Auto) 0.1 x10^3/uL (0.0-0.2) Erythrocyte Sedimentation Rate 24 (0-25) Sodium Level 143 mmol/L (136-145) Potassium Level 4.4 mmol/L (3.5-5.1) Chloride Level 113 mmol/L (98-107) Carbon Dioxide Level 26 mmol/L (21-32) Anion Gap 4 (6-14) Blood Urea Nitrogen 21 mg/dL (7-20) Creatinine 0.5 mg/dL (0.6-1.0) Estimated GFR (Cockcroft-Gault) 126.7 Glucose Level 163 mg/dL (70-99) Calcium Level 7.8 mg/dL (8.5-10.1) Ammonia 22 mcmol/L (11-34) Thyroid Stimulating Hormone (TSH) 2.306 uIU/mL (0.358-3.74) IMPRESSION: 1. Diffuse colonic wall thickening may be seen with C. difficile colitis. Alternatively, given hepatic cirrhosis portal venous colopathy but the would have similar appearance. 2. Moderate abdominal and pelvic ascites without loculated fluid collection. The previously seen collection in the gallbladder fossa has since essentially resolved. 3. Gastrojejunostomy tube tip extends to the fundus of the stomach. 4. Marked distention of the bladder may be seen with voluntary or involuntary causes of urinary retention. CT head IMPRESSION: Limited study without evidence of acute intracranial abnormality Micro Microbiology 02/01/19 Urine Culture - Final, Complete 02/01/19 Urine Culture Result 1 ([facility]) - Final, Complete 02/01/19 Blood Culture - Final, Complete NO GROWTH AFTER 5 DAYS Objective Assessment Fever - resolved UA - clean. Leukocytosis - better Status post Whipple's 01/27 Pancreatic CA Encephalopathy - ? metabolic History of hepatitis C. History of bilateral mastectomy. Chronic obstructive pulmonary disease. Peripheral neuropathy. ETOH abuse and h/o anxiety. Urinary retention s/p Moreno placement, 02/06 Plan Plan of Care Continue Meropenem 02/04, Micafungin 02/01 and Flagyl Cultures neg maintain aspiration precautions f/u c. diff PCR D/w at bedside D/w nursing Attending Co-Sign The patient was seen and interviewed as well as examined at the bedside. The chart was reviewed. The case was discussed. Agree with the plan of care. ALINE TURNER APRN Feb 07, 2019 11:34 TRINI GAXIOLA MD Feb 07, 2019 12:26
--- NOTE | 2019-02-07 11:58 | PDOC ---
PROGRESS NOTES Assessment Toxic and metabolic encephalopathy, EEG negative for epileptic activity, consistent with encephalopathy (02/06) Leukocytosis, hypocalcemia, hypophosphatemia, she also had some hypo-magnesemia 2 days ago, elevated pro-calcitonin levels. Transaminases and bilirubin were normal on 02/03, additional laboratory studies I ordered are normal Plan Hold on lumbar puncture Overall prognosis is poor. I left a message with the patient's . Subjective None Objective Vital Signs Date Time Temp Pulse Resp B/P (MAP) Pulse Ox O2 Delivery O2 Flow Rate FiO2 02/07/19 10:55 93 Room Air 94.0 02/07/19 09:35 16 02/07/19 09:35 130 122/67 02/07/19 09:01 99.1 99.1 Intake and Output 02/07/19 07:00 Intake Total 1312 ml Output Total 1226 ml Balance 86 ml Intake Oral 0 ml IV Total 1312 ml Output Urine Total 1226 ml Gastric Drainage Total 0 ml # Voids 1 # Bowel Movements 6 PHYSICAL EXAM Opens eyes to voice, does not follow commands, nonverbal PERRL. EOMI. CN: no focal findings. Muscle tone: normal. Muscle strength: Moves extremities to mild pain DTR: 2+ Plantar reflex: Flexor Gait: not examined in bed. Sensory exam: Responds to pain in all 4 extremities.. Cerebellar: Not cooperative Review of Relevant I have reviewed the following items dante (where applicable) has been applied. Labs Laboratory Tests Test 02/06/19 06:30 02/07/19 00:00 02/07/19 05:30 02/07/19 06:07 White Blood Count 26.2 x10^3/uL (4.0-11.0) 23.0 x10^3/uL (4.0-11.0) Red Blood Count 2.99 x10^6/uL (3.50-5.40) 2.92 x10^6/uL (3.50-5.40) Hemoglobin 9.8 g/dL (12.0-15.5) 9.5 g/dL (12.0-15.5) Hematocrit 29.3 % (36.0-47.0) 28.8 % (36.0-47.0) Mean Corpuscular Volume 98 fL (79-100) 99 fL (79-100) Mean Corpuscular Hemoglobin 33 pg (25-35) 33 pg (25-35) Mean Corpuscular Hemoglobin Concent 34 g/dL (31-37) 33 g/dL (31-37) Red Cell Distribution Width 13.6 % (11.5-14.5) 13.9 % (11.5-14.5) Platelet Count 276 x10^3/uL (140-400) 258 x10^3/uL (140-400) Neutrophils (%) (Auto) 81 % (31-73) 74 % (31-73) Lymphocytes (%) (Auto) 9 % (24-48) 13 % (24-48) Monocytes (%) (Auto) 9 % (0-9) 12 % (0-9) Eosinophils (%) (Auto) 1 % (0-3) 1 % (0-3) Basophils (%) (Auto) 0 % (0-3) 0 % (0-3) Neutrophils # (Auto) 21.3 x10^3/uL (1.8-7.7) 17.0 x10^3/uL (1.8-7.7) Lymphocytes # (Auto) 2.4 x10^3/uL (1.0-4.8) 3.0 x10^3/uL (1.0-4.8) Monocytes # (Auto) 2.3 x10^3/uL (0.0-1.1) 2.8 x10^3/uL (0.0-1.1) Eosinophils # (Auto) 0.2 x10^3/uL (0.0-0.7) 0.1 x10^3/uL (0.0-0.7) Basophils # (Auto) 0.0 x10^3/uL (0.0-0.2) 0.1 x10^3/uL (0.0-0.2) Sodium Level 140 mmol/L (136-145) 143 mmol/L (136-145) Potassium Level 4.6 mmol/L (3.5-5.1) 4.4 mmol/L (3.5-5.1) Chloride Level 108 mmol/L (98-107) 113 mmol/L (98-107) Carbon Dioxide Level 28 mmol/L (21-32) 26 mmol/L (21-32) Anion Gap 4 (6-14) 4 (6-14) Blood Urea Nitrogen 19 mg/dL (7-20) 21 mg/dL (7-20) Creatinine 0.7 mg/dL (0.6-1.0) 0.5 mg/dL (0.6-1.0) Estimated GFR (Cockcroft-Gault) 85.9 126.7 Glucose Level 188 mg/dL (70-99) 163 mg/dL (70-99) Calcium Level 7.8 mg/dL (8.5-10.1) 7.8 mg/dL (8.5-10.1) Phosphorus Level 3.3 mg/dL (2.6-4.7) Magnesium Level 2.1 mg/dL (1.8-2.4) Glucose (Fingerstick) 154 mg/dL (70-99) 157 mg/dL (70-99) Erythrocyte Sedimentation Rate 24 (0-25) Ammonia 22 mcmol/L (11-34) Thyroid Stimulating Hormone (TSH) 2.306 uIU/mL (0.358-3.74) Laboratory Tests Test 02/07/19 00:00 02/07/19 05:30 02/07/19 06:07 Glucose (Fingerstick) 154 mg/dL (70-99) 157 mg/dL (70-99) White Blood Count 23.0 x10^3/uL (4.0-11.0) Red Blood Count 2.92 x10^6/uL (3.50-5.40) Hemoglobin 9.5 g/dL (12.0-15.5) Hematocrit 28.8 % (36.0-47.0) Mean Corpuscular Volume 99 fL (79-100) Mean Corpuscular Hemoglobin 33 pg (25-35) Mean Corpuscular Hemoglobin Concent 33 g/dL (31-37) Red Cell Distribution Width 13.9 % (11.5-14.5) Platelet Count 258 x10^3/uL (140-400) Neutrophils (%) (Auto) 74 % (31-73) Lymphocytes (%) (Auto) 13 % (24-48) Monocytes (%) (Auto) 12 % (0-9) Eosinophils (%) (Auto) 1 % (0-3) Basophils (%) (Auto) 0 % (0-3) Neutrophils # (Auto) 17.0 x10^3/uL (1.8-7.7) Lymphocytes # (Auto) 3.0 x10^3/uL (1.0-4.8) Monocytes # (Auto) 2.8 x10^3/uL (0.0-1.1) Eosinophils # (Auto) 0.1 x10^3/uL (0.0-0.7) Basophils # (Auto) 0.1 x10^3/uL (0.0-0.2) Erythrocyte Sedimentation Rate 24 (0-25) Sodium Level 143 mmol/L (136-145) Potassium Level 4.4 mmol/L (3.5-5.1) Chloride Level 113 mmol/L (98-107) Carbon Dioxide Level 26 mmol/L (21-32) Anion Gap 4 (6-14) Blood Urea Nitrogen 21 mg/dL (7-20) Creatinine 0.5 mg/dL (0.6-1.0) Estimated GFR (Cockcroft-Gault) 126.7 Glucose Level 163 mg/dL (70-99) Calcium Level 7.8 mg/dL (8.5-10.1) Ammonia 22 mcmol/L (11-34) Thyroid Stimulating Hormone (TSH) 2.306 uIU/mL (0.358-3.74) Microbiology 02/01/19 Urine Culture - Final, Complete 02/01/19 Urine Culture Result 1 ([facility]ON) - Final, Complete 02/01/19 Blood Culture - Final, Complete NO GROWTH AFTER 5 DAYS Medications Current Medications Ondansetron HCl (Zofran) 4 mg PRN Q6HRS PRN IV NAUSEA/VOMITING; Start 01/27/19 at 07:00; Stop 01/28/19 at 06:59; Status DC Fentanyl Citrate (Fentanyl 2ml Vial) 25 mcg PRN Q5MIN PRN IV MILD PAIN 1-3; Start 01/27/19 at 07:00; Stop 01/28/19 at 06:59; Status DC Fentanyl Citrate (Fentanyl 2ml Vial) 50 mcg PRN Q5MIN PRN IV MODERATE TO SEVERE PAIN; Start 01/27/19 at 07:00; Stop 01/28/19 at 06:59; Status DC Morphine Sulfate (Morphine Sulfate) 1 mg PRN Q10MIN PRN IV SEVERE PAIN 7-10; Start 01/27/19 at 07:00; Stop 01/28/19 at 06:59; Status DC Ringer's Solution 1,000 ml @ 30 mls/hr Q24H IV Last administered on 01/27/19at 08:15; Start 01/27/19 at 07:00; Stop 01/27/19 at 18:59; Status DC Hydromorphone HCl (Dilaudid) 0.5 mg PRN Q10MIN PRN IV SEV PAIN, Second choice; Start 01/27/19 at 07:00; Stop 01/28/19 at 06:59; Status DC Prochlorperazine Edisylate (Compazine) 5 mg PACU PRN PRN IV NAUSEA, MRX1 Last administered on 01/28/19at 03:33; Start 01/27/19 at 07:00; Stop 01/28/19 at 06:59; Status DC Cefoxitin Sodium (Mefoxin) 2 gm 1X PREOP PRN IVP SURGERY Last administered on 01/27/19at 12:18; Start 01/27/19 at 06:00; Stop 01/28/19 at 10:13; Status DC Sevoflurane (Ultane) 90 ml STK-MED ONCE IH ; Start 01/27/19 at 09:11; Stop 01/27/19 at 09:11; Status DC Rocuronium Conway (Zemuron) 50 mg STK-MED ONCE .ROUTE ; Start 01/27/19 at 09:11; Stop 01/27/19 at 09:11; Status DC Fentanyl Citrate (Fentanyl 2ml Vial) 100 mcg STK-MED ONCE .ROUTE ; Start 01/27/19 at 09:11; Stop 01/27/19 at 09:11; Status DC Neostigmine Methylsulfate (Neostigmine Methylsulfate) 5 mg STK-MED ONCE .ROUTE ; Start 01/27/19 at 09:11; Stop 01/27/19 at 09:11; Status DC Midazolam HCl (Versed) 2 mg STK-MED ONCE .ROUTE ; Start 01/27/19 at 09:11; Stop 01/27/19 at 09:11; Status DC Glycopyrrolate (Robinul) 1 mg STK-MED ONCE .ROUTE ; Start 01/27/19 at 09:11; Stop 01/27/19 at 09:11; Status DC Phenylephrine HCl (Bret-Synephrine Inj) 10 mg STK-MED ONCE .ROUTE ; Start 01/27/19 at 09:11; Stop 01/27/19 at 09:12; Status DC Dexamethasone Sodium Phosphate (Decadron) 4 mg STK-MED ONCE .ROUTE ; Start 01/27/19 at 09:11; Stop 01/27/19 at 09:12; Status DC Ondansetron HCl (Zofran) 4 mg STK-MED ONCE .ROUTE ; Start 01/27/19 at 09:12; Stop 01/27/19 at 09:12; Status DC Lidocaine HCl (Lidocaine Pf 2% Vial) 5 ml STK-MED ONCE .ROUTE ; Start 01/27/19 at 09:12; Stop 01/27/19 at 09:12; Status DC Propofol 20 ml @ As Directed STK-MED ONCE IV ; Start 01/27/19 at 09:12; Stop 01/27/19 at 09:12; Status DC Sodium Chloride (Normal Saline Flush) 3 ml QSHIFT PRN IV AFTER MEDS AND BLOOD DRAWS; Start 01/27/19 at 09:30; Stop 02/03/19 at 09:09; Status DC Ibuprofen (Motrin) 400 mg PRN Q6HRS PRN PO MILD PAIN 1-3; Start 01/27/19 at 09:30 Naloxone HCl (Narcan) 0.4 mg PRN Q2MIN PRN IV SEE INSTRUCTIONS; Start 01/27/19 at 09:30; Stop 01/31/19 at 09:15; Status DC Sodium Chloride 1,000 ml @ 25 mls/hr Q24H IV ; Start 01/27/19 at 09:28; Stop 01/30/19 at 14:52; Status DC Ondansetron HCl (Zofran) 4 mg PRN Q6HRS PRN IV Nausea, 2nd Choice; Start 01/27/19 at 09:30; Status Cancel Epinephrine HCl (EPINEPHrine SYRINGE) 1 mg STK-MED ONCE .ROUTE ; Start 01/27/19 at 10:15; Stop 01/27/19 at 10:16; Status DC Lidocaine HCl (Lidocaine Pf 2% Vial) 5 ml STK-MED ONCE .ROUTE ; Start 01/27/19 at 10:15; Stop 01/27/19 at 10:16; Status DC Ropivacaine (Naropin 0.5%) 20 ml STK-MED ONCE .ROUTE ; Start 01/27/19 at 10:17; Stop 01/27/19 at 10:18; Status DC Cellulose (Surgicel Hemostat 4x8) 1 each STK-MED ONCE .ROUTE Last administered on 01/27/19at 11:25; Start 01/27/19 at 11:24; Stop 01/27/19 at 11:25; Status DC Cellulose (Surgicel Hemostat 4x8) 1 each STK-MED ONCE .ROUTE Last administered on 01/27/19at 11:39; Start 01/27/19 at 11:38; Stop 01/27/19 at 11:38; Status DC Rocuronium Conway (Zemuron) 50 mg STK-MED ONCE .ROUTE ; Start 01/27/19 at 12:09; Stop 01/27/19 at 12:09; Status DC Cefoxitin Sodium (Mefoxin) 2 gm 1X ONCE IVP Last administered on 01/27/19at 12:33; Start 01/27/19 at 12:30; Stop 01/27/19 at 12:31; Status DC Phenylephrine HCl (Bret-Synephrine Inj) 10 mg STK-MED ONCE .ROUTE ; Start 01/27/19 at 14:49; Stop 01/27/19 at 14:49; Status DC Sodium Chloride 35 ml/Fentanyl Citrate 250 mcg/ Ropivacaine 10 ml/ Epidural Dosage Infused (Pha) 50 ml @ 0 mls/hr CONT EPID ; Start 01/27/19 at 15:00; Status UNV Sodium Chloride 35 ml/Fentanyl Citrate 250 mcg/ Ropivacaine 10 ml/ Epidural Dosage Infused (Pha) 50 ml @ 0 mls/hr CONT PRN EPID SEE PROTOCOL TABLE Last administered on 01/28/19at 05:00; Start 01/27/19 at 15:00; Stop 01/28/19 at 0 8:11; Status DC Cefoxitin Sodium (Mefoxin) 2 gm 1X PREOP PRN IVP SURGERY Last administered on 01/27/19at 16:47; Start 01/27/19 at 15:15; Stop 01/28/19 at 10:13; Status DC Famotidine (Pepcid Vial) 20 mg BID IVP Last administered on 02/07/19at 09:35; Start 01/27/19 at 21:00 Enoxaparin Sodium (Lovenox 40mg Syringe) 40 mg Q24H SQ Last administered on 01/29/19at 12:24; Start 01/28/19 at 09:00; Stop 01/29/19 at 17:14; Status DC Sodium Chloride (Normal Saline Flush) 3 ml QSHIFT PRN IV AFTER MEDS AND BLOOD DRAWS; Start 01/27/19 at 15:45 Ringer's Solution 1,000 ml @ 100 mls/hr Q10H IV Last administered on 01/30/19at 03:20; Start 01/27/19 at 15:33; Stop 01/30/19 at 14:52; Status DC Naloxone HCl (Narcan) 0.4 mg PRN Q2MIN PRN IV SEE INSTRUCTIONS; Start 01/27/19 at 15:45 Sodium Chloride 1,000 ml @ 25 mls/hr Q24H IV ; Start 01/27/19 at 15:33; Stop 01/28/19 at 15:52; Status DC Ondansetron HCl (Zofran) 4 mg PRN Q6HRS PRN IV NAUESA, 1ST CHOICE Last administered on 02/01/19at 23:49; Start 01/27/19 at 15:45 Sodium Chloride 35 ml/Fentanyl Citrate 250 mcg/ Ropivacaine 10 ml/ Epidural Dosage Infused (Pha) 50 ml @ 0 mls/hr CONT PRN EPID SEE PROTOCOL TABLE Last administered on 02/01/19at 08:00; Start 01/28/19 at 08:15; Stop 02/01/19 at 10:03; Status DC Throat Lozenges (Cepacol Sore Throat Lozenge) 1 karthikeyan PRN Q2HRS PRN PO SORE THROAT Last administered on 01/28/19at 10:49; Start 01/28/19 at 09:30 Lorazepam (Ativan Inj) 0.5 mg PRN Q6HRS PRN IV ANXIETY AGITATION, 1ST CHOICE Last administered on 01/31/19at 21:13; Start 01/28/19 at 12:30; Stop 02/06/19 at 10:42; Status DC Thiamine HCl 100 mg DAILY IM Last administered on 01/30/19at 09:12; Start 01/28/19 at 13:00; Stop 01/31/19 at 11:44; Status DC Lorazepam (Ativan Inj) 2 mg PRN Q1HR PRN IV For CIWA 8-14 Last administered on 02/06/19at 03:27; Start 01/28/19 at 13:00; Stop 02/06/19 at 10:42; Status DC Lorazepam (Ativan Inj) 4 mg PRN Q1HR PRN IV For CIWA 15 or greater; Start 01/28/19 at 13:00; Stop 02/06/19 at 10:42; Status DC Haloperidol Lactate (Haldol Inj) 5 mg PRN Q4HRS PRN IVP Hallucinatns,Confusn,Delirium Last administered on 02/06/19at 21:35; Start 01/28/19 at 13:00 Diphenhydramine HCl (Benadryl) 25 mg PRN Q15MIN PRN IVP EPS symptoms 2'Haldol admin; Start 01/28/19 at 13:00 Lorazepam (Ativan Inj) 2 mg PRN Q15MIN PRN IV SEE COMMENTS Last administered on 02/05/19at 01:12; Start 01/28/19 at 13:00; Stop 02/06/19 at 10:42; Status DC Lorazepam (Ativan Inj) 4 mg PRN Q15MIN PRN IV SEE COMMENTS Last administered on 02/05/19at 02:29; Start 01/28/19 at 13:00; Stop 02/06/19 at 10:42; Status DC Albuterol/ Ipratropium (Duoneb) 3 ml RTQID NEB Last administered on 02/06/19at 12:04; Start 01/28/19 at 13:00 Non-Formulary Medication (Fluticasone/ Umeclidin/ Vilanter (Trelegy Ellipta 100-62.5-25)) 1 puff DAILY PO ; Start 01/29/19 at 09:00; Status UNV Budesonide (Pulmicort) 0.5 mg RTBID NEB Last administered on 02/06/19at 07:48; Start 01/28/19 at 20:00 Albuterol Sulfate (Ventolin Neb Soln) 2.5 mg PRN Q6HRS PRN INH SHORTNESS OF BREATH; Start 01/28/19 at 14:00 Lorazepam (Ativan) 1 mg PRN Q6HRS PRN PO ANXIETY / AGITATION Last administered on 02/04/19at 12:07; Start 01/28/19 at 14:00; Stop 02/04/19 at 12:58; Status DC Pantoprazole Sodium (Protonix) 40 mg DAILYAC PO Last administered on 02/07/19at 09:35; Start 01/28/19 at 16:30 Metoprolol Tartrate (Lopressor Vial) 12.5 mg BID IVP ; Start 01/29/19 at 21:00; Stop 01/29/19 at 14:50; Status DC Metoprolol Tartrate (Lopressor) 12.5 mg BID PO Last administered on 02/07/19 09:35; Start 01/29/19 at 17:00 Amino Acids/ Glycerin/ Electrolytes 1,000 ml @ 75 mls/hr [id number] IV Last administered on 02/02/19at 18:20; Start 01/30/19 at 11:30; Stop 02/02/19 at 21:59; Status DC Acetaminophen (Tylenol) 650 mg PRN Q6HRS PRN PO fever Last administered on 02/01/19 08:45; Start 01/31/19 at 01:15 Thiamine Mononitrate (Vitamin B-1) 100 mg DAILY PO Last administered on 02/07/19 09:35; Start 01/31/19 at 12:30 Heparin Sodium (Porcine) (Heparin Sodium) 5,000 unit Q12HR SQ Last administered on 02/07/19at 09:38; Start 01/31/19 at 14:00 Piperacillin Sod/ Tazobactam Sod 3.375 gm/Sodium Chloride 50 ml @ 100 mls/hr Q6HRS IV Last administered on 02/04/19at 05:58; Start 02/01/19 at 10:00; Stop 02/04/19 at 06:32; Status DC Linezolid/Dextrose 300 ml @ 300 mls/hr Q12HR IV Last administered on 02/03/19at 21:30; Start 02/01/19 at 10:00; Stop 02/04/19 at 06:32; Status DC Micafungin Sodium 100 mg/Dextrose 100 ml @ 100 mls/hr Q24H IV Last administered on 02/07/19at 09:37; Start 02/01/19 at 11:00 Sodium Chloride 35 ml/Fentanyl Citrate 250 mcg/ Ropivacaine 10 ml/ Epidural Dosage Infused (Pha) 50 ml @ 0 mls/hr CONT PRN EPID SEE PROTOCOL TABLE Last administered on 02/01/19at 11:16; Start 02/01/19 at 10:15; Stop 02/04/19 at 09:09; Status DC Fentanyl Citrate (Fentanyl 2ml Vial) 25 mcg PRN Q5MIN PRN IV MILD PAIN 1-3; Start 02/01/19 at 14:00; Stop 02/02/19 at 13:59; Status DC Fentanyl Citrate (Fentanyl 2ml Vial) 50 mcg PRN Q5MIN PRN IV MODERATE TO SEVERE PAIN Last administered on 02/02/19at 09:09; Start 02/01/19 at 14:00; Stop 02/02/19 at 13:59; Status DC Hydromorphone HCl (Dilaudid) 1 mg PRN Q2HR PRN IV PAIN Last administered on 02/06/19at 09:11; Start 02/01/19 at 16:30; Stop 02/06/19 at 10:42; Status DC Ketorolac Tromethamine (Toradol 30mg Vial) 30 mg 1X ONCE IV Last administered on 02/01/19at 16:43; Start 02/01/19 at 16:30; Stop 02/01/19 at 16:31; Status DC Sodium Chloride 500 ml @ 500 mls/hr 1X ONCE IV Last administered on 02/02/19at 05:37; Start 02/02/19 at 05:30; Stop 02/02/19 at 06:29; Status DC Hydromorphone HCl 30 ml @ 0 mls/hr CONT PRN PRN IV PER PROTOCOL Last administered on 02/02/19at 10:32; Start 02/02/19 at 09:00; Stop 02/04/19 at 09:09; Status DC Info (Tpn Per Pharmacy) 1 each PRN DAILY PRN MC SEE COMMENTS Last administered on 02/06/19at 13:42; Start 02/02/19 at 10:00 Sodium Phosphate 20 mmol/Dextrose 256.6667 ml @ 64.167 m... 1X ONCE IV Last administered on 02/02/19at 14:38; Start 02/02/19 at 11:00; Stop 02/02/19 at 14:59; Status DC Furosemide (Lasix) 20 mg 1X ONCE IVP Last administered on 02/02/19at 16:16; Start 02/02/19 at 16:00; Stop 02/02/19 at 16:01; Status DC Lidocaine/Sodium Bicarbonate (Buffered Lidocaine 1%) 3 ml 1X ONCE INJ ; Start 02/02/19 at 14:00; Stop 02/02/19 at 14:05; Status DC Sodium Chloride 80 meq/Potassium Chloride 40 meq/ Sodium Phosphate 13.6 mmol/ Magnesium Sulfate 10 meq/Calcium Gluconate 10 meq/ Multivitamins 10 ml/Chromium/ Copper/Manganese/ Seleni/Zn 1 ml/ Total Parenteral Nutrition/Amino Acids/Dextrose/ Fat Emulsion Intravenous 1,512 ml @ 63 mls/hr TPN CONT IV Last administered on 02/02/19at 21:50; Start 02/02/19 at 22:00; Stop 02/03/19 at 21:59; Status DC Potassium Phosphate 15 mmol/ Sodium Chloride 255 ml @ 127.5 mls/ hr 1X ONCE IV Last administered on 02/03/19at 11:35; Start 02/03/19 at 11:00; Stop 02/03/19 at 12:59; Status DC Potassium Chloride (Klor-Con) 40 meq 1X ONCE PO Last administered on 02/03/19at 21:30; Start 02/03/19 at 11:30; Stop 02/03/19 at 11:31; Status DC Sodium Chloride 120 meq/Potassium Chloride 50 meq/ Sodium Phosphate 20.4 mmol/ Magnesium Sulfate 10 meq/Calcium Gluconate 10 meq/ Multivitamins 10 ml/Chromium/ Copper/Manganese/ Seleni/Zn 1 ml/ Total Parenteral Nutrition/Amino Acids/Dextrose/ Fat Emulsion Intravenous 1,512 ml @ 63 mls/hr TPN CONT IV Last administered on 02/03/19at 21:30; Start 02/03/19 at 22:00; Stop 02/04/19 at 21:59; Status DC Potassium Chloride (Klor-Con) 40 meq 1X ONCE PO Last administered on 02/03/19at 21:31; Start 02/03/19 at 21:00; Stop 02/03/19 at 21:01; Status DC Meropenem 500 mg/ Sodium Chloride 50 ml @ 100 mls/hr Q6HRS IV Last administered on 02/07/19at 05:20; Start 02/04/19 at 07:00 Oxycodone/ Acetaminophen (Percocet 5/325) 1 tab PRN Q4HRS PRN PO MODERATE TO SEVERE PAIN Last administered on 02/06/19at 01:34; Start 02/04/19 at 09:15 Docusate Sodium (Colace) 100 mg DAILY PO Last administered on 02/05/19at 09:13; Start 02/04/19 at 10:00 Iohexol (Omnipaque 350 Mg/ml) 75 ml 1X ONCE IV Last administered on 02/04/19at 12:30; Start 02/04/19 at 10:15; Stop 02/04/19 at 10:16; Status DC Info (CONTRAST GIVEN -- Rx MONITORING) 1 each PRN DAILY PRN MC SEE COMMENTS; Start 02/04/19 at 10:15; Stop 02/06/19 at 10:14; Status DC Lorazepam (Ativan) 1 mg PRN Q6HRS PRN PO ANXIETY / AGITATION Last administered on 02/04/19at 18:17; Start 02/04/19 at 13:00; Stop 02/06/19 at 10:42; Status DC Sodium Chloride 120 meq/Sodium Phosphate 24 mmol/ Potassium Chloride 50 meq/ Magnesium Sulfate 13 meq/Calcium Gluconate 10 meq/ Multivitamins 10 ml/Chromium/ Copper/Manganese/ Seleni/Zn 1 ml/ Total Parenteral Nutrition/Amino Acids/Dextrose/ Fat Emulsion Intravenous 1,512 ml @ 63 mls/hr TPN CONT IV Last administered on 02/04/19at 22:20; Start 02/04/19 at 22:00; Stop 02/05/19 at 21:59; Status DC Sodium Phosphate 15 mmol/Dextrose 255 ml @ 63.75 mls/ hr 1X ONCE IV Last administered on 02/04/19at 14:23; Start 02/04/19 at 14:00; Stop 02/04/19 at 17:59; Status DC Lorazepam (Ativan Inj) 2 mg PRN Q4HRS PRN IV ANXIETY/AGITATION (USE 2ND) Last administered on 02/04/19at 20:46; Start 02/04/19 at 20:15; Stop 02/06/19 at 10:42; Status DC Sodium Phosphate 20 mmol/Dextrose 256.6667 ml @ 64.167 m... 1X ONCE IV Last administered on 02/05/19at 12:56; Start 02/05/19 at 12:00; Stop 02/05/19 at 15:59; Status DC Sodium Chloride 120 meq/Sodium Phosphate 27 mmol/ Potassium Chloride 50 meq/ Magnesium Sulfate 13 meq/Calcium Gluconate 10 meq/ Multivitamins 10 ml/Chromium/ Copper/Manganese/ Seleni/Zn 1 ml/ Total Parenteral Nutrition/Amino Acids/Dextrose/ Fat Emulsion Intravenous 1,512 ml @ 63 mls/hr TPN CONT IV Last administered on 02/05/19at 23:33; Start 02/05/19 at 22:00; Stop 02/06/19 at 21:59; Status DC Lorazepam (Ativan Inj) 0.25 mg PRN Q6HRS PRN IV ANXIETY AGITATION, 1ST CHOICE Last administered on 02/06/19at 21:11; Start 02/06/19 at 10:45 Iohexol (Omnipaque 300 Mg/ml) 75 ml 1X ONCE IV Last administered on 02/06/19at 12:38; Start 02/06/19 at 12:00; Stop 02/06/19 at 12:01; Status DC Info (CONTRAST GIVEN -- Rx MONITORING) 1 each PRN DAILY PRN MC SEE COMMENTS; Start 02/06/19 at 11:45; Stop 02/08/19 at 11:44 Sodium Chloride 100 meq/Sodium Phosphate 20 mmol/ Potassium Chloride 50 meq/ Magnesium Sulfate 13 meq/Calcium Gluconate 10 meq/ Multivitamins 10 ml/Chromium/ Copper/Manganese/ Seleni/Zn 1 ml/ Total Parenteral Nutrition/Amino Acids/Dextrose/ Fat Emulsion Intravenous 1,512 ml @ 63 mls/hr TPN CONT IV Last administered on 02/06/19at 22:05; Start 02/06/19 at 22:00; Stop 02/07/19 at 21:59 Metronidazole 100 ml @ 100 mls/hr Q6H IV Last administered on 02/07/19at 11:00; Start 02/06/19 at 16:00 Hydromorphone HCl (Dilaudid) 1 mg PRN Q2HR PRN IV PAIN Last administered on 02/07/19at 09:35; Start 02/07/19 at 00:00 Metoprolol Tartrate (Lopressor Vial) 5 mg PRN Q6HRS PRN IVP hypertension; Start 02/07/19 at 00:00 Active Scripts Active Lactulose 20 Gm/30 Ml Solution 20 Gm PO PRN TID PRN 30 Days Zofran (Ondansetron Hcl) 4 Mg Tablet 1 Tab PO Q6HRS 30 Days Hydrocodone-Apap 5-325 (Hydrocodone Bit/Acetaminophen) 1 Tab Tablet 1 Tab PO PRN Q6HRS PRN 6 Days Pantoprazole Sodium (Pantoprazole Sodium) 40 Mg Tablet.dr 40 Mg PO DAILYAC 30 Days Lorazepam 1 Mg Tablet 1 Mg PO PRN Q6HRS PRN 6 Days Reported Proair Hfa Inhaler (Albuterol Sulfate) 8.5 Gm Hfa.aer.ad 1 Puff INH PRN Q6HRS PRN Trelegy Ellipta 100-62.5-25 (Fluticasone/Umeclidin/Vilanter) 1 Each Blst.w.dev 1 Puff PO DAILY Vitals/I & O Vital Sign - Last 24 Hours 02/06/19 02/06/19 02/06/19 02/07/19 15:00 19:00 23:00 03:00 Temp 98.3 97.8 98.5 98.3 97.8 98.5 Pulse 126 120 129 106 Resp 20 18 18 18 B/P (MAP) 115/64 (81) 121/70 (87) 101/69 (80) 87/52 (64) Pulse Ox 96 98 96 98 O2 Delivery Room Air Room Air Room Air Room Air 02/07/19 02/07/19 02/07/19 02/07/19 07:30 08:00 09:01 09:35 Temp 99.1 99.1 Pulse 130 130 Resp 16 16 B/P (MAP) 122/67 (85) 122/67 Pulse Ox 93 O2 Delivery Room Air Room Air 02/07/19 02/07/19 09:35 10:55 Resp 16 Pulse Ox 93 O2 Delivery Room Air Room Air O2 Flow Rate 94.0 Intake and Output 02/06/19 02/06/19 02/07/19 15:00 23:00 07:00 Intake Total 0 ml 1262 ml 50 ml Output Total 1 ml 900 ml 325 ml Balance -1 ml 362 ml -275 ml REAL RIOJAS MD Feb 07, 2019 11:58
--- NOTE | 2019-02-07 11:58 | EEG ---
DATE OF SERVICE: 02/06/2019 EEG NUMBER: [id number] OBJECTIVE: The patient is a 58-year-old female with metabolic encephalopathy. DESCRIPTION: This is a digital study. Electrodes are placed according to international 10-20 system. Bipolar and referential montages are available. Activation procedures typically include hyperventilation and intermittent photic stimulation. INTERPRETATION: The waking background consists of 6-7, 20-50 microvolt activity. There is a large amount of muscle artifact. The patient does not cooperate with hyperventilation. Intermittent photic stimulation is noncontributory. Sleep is not achieved. IMPRESSION: This electroencephalogram with the patient awake, in an obtunded state is abnormal because of a moderate, diffuse disturbance of cerebral activity consistent with any of a variety of toxic or metabolic encephalopathies. There is no focal, paroxysmal, or epileptiform activity. Thank you for letting us help with the patient's care. REAL RIOJAS MD DR: RICHARD/alonzo JOB#: [id number] / [id number]
[2019-02-07 11:59] VITALS: BP 127/64
--- NOTE | 2019-02-07 13:00 | PDOC ---
PROGRESS NOTES Subjective Subjective pt lethargic, in restraints; large drainage around G tube per nurse Objective Objective Vital Signs Date Time Temp Pulse Resp B/P (MAP) Pulse Ox O2 Delivery O2 Flow Rate FiO2 02/07/19 10:55 93 Room Air 94.0 02/07/19 09:35 16 02/07/19 09:35 130 122/67 02/07/19 09:01 99.1 99.1 Intake and Output 02/07/19 07:00 Intake Total 1312 ml Output Total 1226 ml Balance 86 ml Intake Oral 0 ml IV Total 1312 ml Output Urine Total 1226 ml Gastric Drainage Total 0 ml # Voids 1 # Bowel Movements 6 Physical Exam Physical Exam Gtube balloon away from gastric wall Assessment Assessment S/P Whipple Plan Plan of Care Gtube adjusted; no other new surgical recs Comment Review of Relevant I have reviewed the following items dante (where applicable) has been applied. Labs Laboratory Tests Test 02/06/19 06:30 02/07/19 00:00 02/07/19 05:30 02/07/19 06:07 White Blood Count 26.2 x10^3/uL (4.0-11.0) 23.0 x10^3/uL (4.0-11.0) Red Blood Count 2.99 x10^6/uL (3.50-5.40) 2.92 x10^6/uL (3.50-5.40) Hemoglobin 9.8 g/dL (12.0-15.5) 9.5 g/dL (12.0-15.5) Hematocrit 29.3 % (36.0-47.0) 28.8 % (36.0-47.0) Mean Corpuscular Volume 98 fL (79-100) 99 fL (79-100) Mean Corpuscular Hemoglobin 33 pg (25-35) 33 pg (25-35) Mean Corpuscular Hemoglobin Concent 34 g/dL (31-37) 33 g/dL (31-37) Red Cell Distribution Width 13.6 % (11.5-14.5) 13.9 % (11.5-14.5) Platelet Count 276 x10^3/uL (140-400) 258 x10^3/uL (140-400) Neutrophils (%) (Auto) 81 % (31-73) 74 % (31-73) Lymphocytes (%) (Auto) 9 % (24-48) 13 % (24-48) Monocytes (%) (Auto) 9 % (0-9) 12 % (0-9) Eosinophils (%) (Auto) 1 % (0-3) 1 % (0-3) Basophils (%) (Auto) 0 % (0-3) 0 % (0-3) Neutrophils # (Auto) 21.3 x10^3/uL (1.8-7.7) 17.0 x10^3/uL (1.8-7.7) Lymphocytes # (Auto) 2.4 x10^3/uL (1.0-4.8) 3.0 x10^3/uL (1.0-4.8) Monocytes # (Auto) 2.3 x10^3/uL (0.0-1.1) 2.8 x10^3/uL (0.0-1.1) Eosinophils # (Auto) 0.2 x10^3/uL (0.0-0.7) 0.1 x10^3/uL (0.0-0.7) Basophils # (Auto) 0.0 x10^3/uL (0.0-0.2) 0.1 x10^3/uL (0.0-0.2) Sodium Level 140 mmol/L (136-145) 143 mmol/L (136-145) Potassium Level 4.6 mmol/L (3.5-5.1) 4.4 mmol/L (3.5-5.1) Chloride Level 108 mmol/L (98-107) 113 mmol/L (98-107) Carbon Dioxide Level 28 mmol/L (21-32) 26 mmol/L (21-32) Anion Gap 4 (6-14) 4 (6-14) Blood Urea Nitrogen 19 mg/dL (7-20) 21 mg/dL (7-20) Creatinine 0.7 mg/dL (0.6-1.0) 0.5 mg/dL (0.6-1.0) Estimated GFR (Cockcroft-Gault) 85.9 126.7 Glucose Level 188 mg/dL (70-99) 163 mg/dL (70-99) Calcium Level 7.8 mg/dL (8.5-10.1) 7.8 mg/dL (8.5-10.1) Phosphorus Level 3.3 mg/dL (2.6-4.7) Magnesium Level 2.1 mg/dL (1.8-2.4) Glucose (Fingerstick) 154 mg/dL (70-99) 157 mg/dL (70-99) Erythrocyte Sedimentation Rate 24 (0-25) Ammonia 22 mcmol/L (11-34) Thyroid Stimulating Hormone (TSH) 2.306 uIU/mL (0.358-3.74) Laboratory Tests Test 02/07/19 00:00 02/07/19 05:30 02/07/19 06:07 Glucose (Fingerstick) 154 mg/dL (70-99) 157 mg/dL (70-99) White Blood Count 23.0 x10^3/uL (4.0-11.0) Red Blood Count 2.92 x10^6/uL (3.50-5.40) Hemoglobin 9.5 g/dL (12.0-15.5) Hematocrit 28.8 % (36.0-47.0) Mean Corpuscular Volume 99 fL (79-100) Mean Corpuscular Hemoglobin 33 pg (25-35) Mean Corpuscular Hemoglobin Concent 33 g/dL (31-37) Red Cell Distribution Width 13.9 % (11.5-14.5) Platelet Count 258 x10^3/uL (140-400) Neutrophils (%) (Auto) 74 % (31-73) Lymphocytes (%) (Auto) 13 % (24-48) Monocytes (%) (Auto) 12 % (0-9) Eosinophils (%) (Auto) 1 % (0-3) Basophils (%) (Auto) 0 % (0-3) Neutrophils # (Auto) 17.0 x10^3/uL (1.8-7.7) Lymphocytes # (Auto) 3.0 x10^3/uL (1.0-4.8) Monocytes # (Auto) 2.8 x10^3/uL (0.0-1.1) Eosinophils # (Auto) 0.1 x10^3/uL (0.0-0.7) Basophils # (Auto) 0.1 x10^3/uL (0.0-0.2) Erythrocyte Sedimentation Rate 24 (0-25) Sodium Level 143 mmol/L (136-145) Potassium Level 4.4 mmol/L (3.5-5.1) Chloride Level 113 mmol/L (98-107) Carbon Dioxide Level 26 mmol/L (21-32) Anion Gap 4 (6-14) Blood Urea Nitrogen 21 mg/dL (7-20) Creatinine 0.5 mg/dL (0.6-1.0) Estimated GFR (Cockcroft-Gault) 126.7 Glucose Level 163 mg/dL (70-99) Calcium Level 7.8 mg/dL (8.5-10.1) Ammonia 22 mcmol/L (11-34) Thyroid Stimulating Hormone (TSH) 2.306 uIU/mL (0.358-3.74) Microbiology 02/01/19 Urine Culture - Final, Complete 02/01/19 Urine Culture Result 1 ([facility]ON) - Final, Complete 02/01/19 Blood Culture - Final, Complete NO GROWTH AFTER 5 DAYS Medications Current Medications Ondansetron HCl (Zofran) 4 mg PRN Q6HRS PRN IV NAUSEA/VOMITING; Start 01/27/19 at 07:00; Stop 01/28/19 at 06:59; Status DC Fentanyl Citrate (Fentanyl 2ml Vial) 25 mcg PRN Q5MIN PRN IV MILD PAIN 1-3; Start 01/27/19 at 07:00; Stop 01/28/19 at 06:59; Status DC Fentanyl Citrate (Fentanyl 2ml Vial) 50 mcg PRN Q5MIN PRN IV MODERATE TO SEVERE PAIN; Start 01/27/19 at 07:00; Stop 01/28/19 at 06:59; Status DC Morphine Sulfate (Morphine Sulfate) 1 mg PRN Q10MIN PRN IV SEVERE PAIN 7-10; Start 01/27/19 at 07:00; Stop 01/28/19 at 06:59; Status DC Ringer's Solution 1,000 ml @ 30 mls/hr Q24H IV Last administered on 01/27/19at 08:15; Start 01/27/19 at 07:00; Stop 01/27/19 at 18:59; Status DC Hydromorphone HCl (Dilaudid) 0.5 mg PRN Q10MIN PRN IV SEV PAIN, Second choice; Start 01/27/19 at 07:00; Stop 01/28/19 at 06:59; Status DC Prochlorperazine Edisylate (Compazine) 5 mg PACU PRN PRN IV NAUSEA, MRX1 Last administered on 01/28/19at 03:33; Start 01/27/19 at 07:00; Stop 01/28/19 at 06:59; Status DC Cefoxitin Sodium (Mefoxin) 2 gm 1X PREOP PRN IVP SURGERY Last administered on 01/27/19at 12:18; Start 01/27/19 at 06:00; Stop 01/28/19 at 10:13; Status DC Sevoflurane (Ultane) 90 ml STK-MED ONCE IH ; Start 01/27/19 at 09:11; Stop 01/27/19 at 09:11; Status DC Rocuronium [place] (Zemuron) 50 mg STK-MED ONCE .ROUTE ; Start 01/27/19 at 09:11; Stop 01/27/19 at 09:11; Status DC Fentanyl Citrate (Fentanyl 2ml Vial) 100 mcg STK-MED ONCE .ROUTE ; Start 01/27/19 at 09:11; Stop 01/27/19 at 09:11; Status DC Neostigmine Methylsulfate (Neostigmine Methylsulfate) 5 mg STK-MED ONCE .ROUTE ; Start 01/27/19 at 09:11; Stop 01/27/19 at 09:11; Status DC Midazolam HCl (Versed) 2 mg STK-MED ONCE .ROUTE ; Start 01/27/19 at 09:11; Stop 01/27/19 at 09:11; Status DC Glycopyrrolate (Robinul) 1 mg STK-MED ONCE .ROUTE ; Start 01/27/19 at 09:11; Stop 01/27/19 at 09:11; Status DC Phenylephrine HCl (Bret-Synephrine Inj) 10 mg STK-MED ONCE .ROUTE ; Start 01/27/19 at 09:11; Stop 01/27/19 at 09:12; Status DC Dexamethasone Sodium Phosphate (Decadron) 4 mg STK-MED ONCE .ROUTE ; Start 01/27/19 at 09:11; Stop 01/27/19 at 09:12; Status DC Ondansetron HCl (Zofran) 4 mg STK-MED ONCE .ROUTE ; Start 01/27/19 at 09:12; Stop 01/27/19 at 09:12; Status DC Lidocaine HCl (Lidocaine Pf 2% Vial) 5 ml STK-MED ONCE .ROUTE ; Start 01/27/19 at 09:12; Stop 01/27/19 at 09:12; Status DC Propofol 20 ml @ As Directed STK-MED ONCE IV ; Start 01/27/19 at 09:12; Stop 01/27/19 at 09:12; Status DC Sodium Chloride (Normal Saline Flush) 3 ml QSHIFT PRN IV AFTER MEDS AND BLOOD DRAWS; Start 01/27/19 at 09:30; Stop 02/03/19 at 09:09; Status DC Ibuprofen (Motrin) 400 mg PRN Q6HRS PRN PO MILD PAIN 1-3; Start 01/27/19 at 09:30 Naloxone HCl (Narcan) 0.4 mg PRN Q2MIN PRN IV SEE INSTRUCTIONS; Start 01/27/19 at 09:30; Stop 01/31/19 at 09:15; Status DC Sodium Chloride 1,000 ml @ 25 mls/hr Q24H IV ; Start 01/27/19 at 09:28; Stop 01/30/19 at 14:52; Status DC Ondansetron HCl (Zofran) 4 mg PRN Q6HRS PRN IV Nausea, 2nd Choice; Start 01/27/19 at 09:30; Status Cancel Epinephrine HCl (EPINEPHrine SYRINGE) 1 mg STK-MED ONCE .ROUTE ; Start 01/27/19 at 10:15; Stop 01/27/19 at 10:16; Status DC Lidocaine HCl (Lidocaine Pf 2% Vial) 5 ml STK-MED ONCE .ROUTE ; Start 01/27/19 at 10:15; Stop 01/27/19 at 10:16; Status DC Ropivacaine (Naropin 0.5%) 20 ml STK-MED ONCE .ROUTE ; Start 01/27/19 at 10:17; Stop 01/27/19 at 10:18; Status DC Cellulose (Surgicel Hemostat 4x8) 1 each STK-MED ONCE .ROUTE Last administered on 01/27/19at 11:25; Start 01/27/19 at 11:24; Stop 01/27/19 at 11:25; Status DC Cellulose (Surgicel Hemostat 4x8) 1 each STK-MED ONCE .ROUTE Last administered on 01/27/19at 11:39; Start 01/27/19 at 11:38; Stop 01/27/19 at 11:38; Status DC Rocuronium [place] (Zemuron) 50 mg STK-MED ONCE .ROUTE ; Start 01/27/19 at 12:09; Stop 01/27/19 at 12:09; Status DC Cefoxitin Sodium (Mefoxin) 2 gm 1X ONCE IVP Last administered on 01/27/19at 12:33; Start 01/27/19 at 12:30; Stop 01/27/19 at 12:31; Status DC Phenylephrine HCl (Bret-Synephrine Inj) 10 mg STK-MED ONCE .ROUTE ; Start 01/27/19 at 14:49; Stop 01/27/19 at 14:49; Status DC Sodium Chloride 35 ml/Fentanyl Citrate 250 mcg/ Ropivacaine 10 ml/ Epidural Dosage Infused (Pha) 50 ml @ 0 mls/hr CONT EPID ; Start 01/27/19 at 15:00; Status UNV Sodium Chloride 35 ml/Fentanyl Citrate 250 mcg/ Ropivacaine 10 ml/ Epidural Dosage Infused (Pha) 50 ml @ 0 mls/hr CONT PRN EPID SEE PROTOCOL TABLE Last ad ministered on 01/28/19at 05:00; Start 01/27/19 at 15:00; Stop 01/28/19 at 08:11; Status DC Cefoxitin Sodium (Mefoxin) 2 gm 1X PREOP PRN IVP SURGERY Last administered on 01/27/19at 16:47; Start 01/27/19 at 15:15; Stop 01/28/19 at 10:13; Status DC Famotidine (Pepcid Vial) 20 mg BID IVP Last administered on 02/07/19at 09:35; Start 01/27/19 at 21:00 Enoxaparin Sodium (Lovenox 40mg Syringe) 40 mg Q24H SQ Last administered on 01/29/19at 12:24; Start 01/28/19 at 09:00; Stop 01/29/19 at 17:14; Status DC Sodium Chloride (Normal Saline Flush) 3 ml QSHIFT PRN IV AFTER MEDS AND BLOOD DRAWS; Start 01/27/19 at 15:45 Ringer's Solution 1,000 ml @ 100 mls/hr Q10H IV Last administered on 01/30/19at 03:20; Start 01/27/19 at 15:33; Stop 01/30/19 at 14:52; Status DC Naloxone HCl (Narcan) 0.4 mg PRN Q2MIN PRN IV SEE INSTRUCTIONS; Start 01/27/19 at 15:45 Sodium Chloride 1,000 ml @ 25 mls/hr Q24H IV ; Start 01/27/19 at 15:33; Stop 01/28/19 at 15:52; Status DC Ondansetron HCl (Zofran) 4 mg PRN Q6HRS PRN IV NAUESA, 1ST CHOICE Last administered on 02/01/19at 23:49; Start 01/27/19 at 15:45 Sodium Chloride 35 ml/Fentanyl Citrate 250 mcg/ Ropivacaine 10 ml/ Epidural Dosage Infused (Pha) 50 ml @ 0 mls/hr CONT PRN EPID SEE PROTOCOL TABLE Last administered on 02/01/19at 08:00; Start 01/28/19 at 08:15; Stop 02/01/19 at 10:03; Status DC Throat Lozenges (Cepacol Sore Throat Lozenge) 1 karthikeyan PRN Q2HRS PRN PO SORE THROAT Last administered on 01/28/19at 10:49; Start 01/28/19 at 09:30 Lorazepam (Ativan Inj) 0.5 mg PRN Q6HRS PRN IV ANXIETY AGITATION, 1ST CHOICE Last administered on 01/31/19at 21:13; Start 01/28/19 at 12:30; Stop 02/06/19 at 10:42; Status DC Thiamine HCl 100 mg DAILY IM Last administered on 01/30/19at 09:12; Start 01/28/19 at 13:00; Stop 01/31/19 at 11:44; Status DC Lorazepam (Ativan Inj) 2 mg PRN Q1HR PRN IV For CIWA 8-14 Last administered on 02/06/19at 03:27; Start 01/28/19 at 13:00; Stop 02/06/19 at 10:42; Status DC Lorazepam (Ativan Inj) 4 mg PRN Q1HR PRN IV For CIWA 15 or greater; Start 01/28/19 at 13:00; Stop 02/06/19 at 10:42; Status DC Haloperidol Lactate (Haldol Inj) 5 mg PRN Q4HRS PRN IVP Hallucinatns,Confusn,Delirium Last administered on 02/06/19at 21:35; Start 01/28/19 at 13:00 Diphenhydramine HCl (Benadryl) 25 mg PRN Q15MIN PRN IVP EPS symptoms 2'Haldol admin; Start 01/28/19 at 13:00 Lorazepam (Ativan Inj) 2 mg PRN Q15MIN PRN IV SEE COMMENTS Last administered on 02/05/19at 01:12; Start 01/28/19 at 13:00; Stop 02/06/19 at 10:42; Status DC Lorazepam (Ativan Inj) 4 mg PRN Q15MIN PRN IV SEE COMMENTS Last administered on 02/05/19at 02:29; Start 01/28/19 at 13:00; Stop 02/06/19 at 10:42; Status DC Albuterol/ Ipratropium (Duoneb) 3 ml RTQID NEB Last administered on 02/06/19at 12:04; Start 01/28/19 at 13:00 Non-Formulary Medication (Fluticasone/ Umeclidin/ Vilanter (Trelegy Ellipta 100-62.5-25)) 1 puff DAILY PO ; Start 01/29/19 at 09:00; Status UNV Budesonide (Pulmicort) 0.5 mg RTBID NEB Last administered on 02/06/19at 07:48; Start 01/28/19 at 20:00 Albuterol Sulfate (Ventolin Neb Soln) 2.5 mg PRN Q6HRS PRN INH SHORTNESS OF BREATH; Start 01/28/19 at 14:00 Lorazepam (Ativan) 1 mg PRN Q6HRS PRN PO ANXIETY / AGITATION Last administered on 02/04/19at 12:07; Start 01/28/19 at 14:00; Stop 02/04/19 at 12:58; Status DC Pantoprazole Sodium (Protonix) 40 mg DAILYAC PO Last administered on 02/07/19at 09:35; Start 01/28/19 at 16:30 Metoprolol Tartrate (Lopressor Vial) 12.5 mg BID IVP ; Start 01/29/19 at 21:00; Stop 01/29/19 at 14:50; Status DC Metoprolol Tartrate (Lopressor) 12.5 mg BID PO Last administered on 02/07/19at 09:35; Start 01/29/19 at 17:00 Amino Acids/ Glycerin/ Electrolytes 1,000 ml @ 75 mls/hr [id number] IV Last administered on 02/02/19at 18:20; Start 01/30/19 at 11:30; Stop 02/02/19 at 21:59; Status DC Acetaminophen (Tylenol) 650 mg PRN Q6HRS PRN PO fever Last administered on 02/01/19 08:45; Start 01/31/19 at 01:15 Thiamine Mononitrate (Vitamin B-1) 100 mg DAILY PO Last administered on 09:35; Start 01/31/19 at 12:30 Heparin Sodium (Porcine) (Heparin Sodium) 5,000 unit Q12HR SQ Last administered on 02/07/19at 09:38; Start 01/31/19 at 14:00 Piperacillin Sod/ Tazobactam Sod 3.375 gm/Sodium Chloride 50 ml @ 100 mls/hr Q6HRS IV Last administered on 02/04/19at 05:58; Start 02/01/19 at 10:00; Stop 02/04/19 at 06:32; Status DC Linezolid/Dextrose 300 ml @ 300 mls/hr Q12HR IV Last administered on 02/03/19at 21:30; Start 02/01/19 at 10:00; Stop 02/04/19 at 06:32; Status DC Micafungin Sodium 100 mg/Dextrose 100 ml @ 100 mls/hr Q24H IV Last administered on 02/07/19at 09:37; Start 02/01/19 at 11:00 Sodium Chloride 35 ml/Fentanyl Citrate 250 mcg/ Ropivacaine 10 ml/ Epidural Dosage Infused (Pha) 50 ml @ 0 mls/hr CONT PRN EPID SEE PROTOCOL TABLE Last administered on 02/01/19at 11:16; Start 02/01/19 at 10:15; Stop 02/04/19 at 09:09; Status DC Fentanyl Citrate (Fentanyl 2ml Vial) 25 mcg PRN Q5MIN PRN IV MILD PAIN 1-3; Start 02/01/19 at 14:00; Stop 02/02/19 at 13:59; Status DC Fentanyl Citrate (Fentanyl 2ml Vial) 50 mcg PRN Q5MIN PRN IV MODERATE TO SEVERE PAIN Last administered on 02/02/19at 09:09; Start 02/01/19 at 14:00; Stop 02/02/19 at 13:59; Status DC Hydromorphone HCl (Dilaudid) 1 mg PRN Q2HR PRN IV PAIN Last administered on 02/06/19at 09:11; Start 02/01/19 at 16:30; Stop 02/06/19 at 10:42; Status DC Ketorolac Tromethamine (Toradol 30mg Vial) 30 mg 1X ONCE IV Last administered on 02/01/19at 16:43; Start 02/01/19 at 16:30; Stop 02/01/19 at 16:31; Status DC Sodium Chloride 500 ml @ 500 mls/hr 1X ONCE IV Last administered on 02/02/19at 05:37; Start 02/02/19 at 05:30; Stop 02/02/19 at 06:29; Status DC Hydromorphone HCl 30 ml @ 0 mls/hr CONT PRN PRN IV PER PROTOCOL Last administered on 02/02/19at 10:32; Start 02/02/19 at 09:00; Stop 02/04/19 at 09:09; Status DC Info (Tpn Per Pharmacy) 1 each PRN DAILY PRN MC SEE COMMENTS Last administered on 02/06/19at 13:42; Start 02/02/19 at 10:00 Sodium Phosphate 20 mmol/Dextrose 256.6667 ml @ 64.167 m... 1X ONCE IV Last administered on 02/02/19at 14:38; Start 02/02/19 at 11:00; Stop 02/02/19 at 14:59; Status DC Furosemide (Lasix) 20 mg 1X ONCE IVP Last administered on 02/02/19at 16:16; Start 02/02/19 at 16:00; Stop 02/02/19 at 16:01; Status DC Lidocaine/Sodium Bicarbonate (Buffered Lidocaine 1%) 3 ml 1X ONCE INJ ; Start 02/02/19 at 14:00; Stop 02/02/19 at 14:05; Status DC Sodium Chloride 80 meq/Potassium Chloride 40 meq/ Sodium Phosphate 13.6 mmol/ Magnesium Sulfate 10 meq/Calcium Gluconate 10 meq/ Multivitamins 10 ml/Chromium/ Copper/Manganese/ Seleni/Zn 1 ml/ Total Parenteral Nutrition/Amino Acids/Dextrose/ Fat Emulsion Intravenous 1,512 ml @ 63 mls/hr TPN CONT IV Last administered on 02/02/19at 21:50; Start 02/02/19 at 22:00; Stop 02/03/19 at 21:59; Status DC Potassium Phosphate 15 mmol/ Sodium Chloride 255 ml @ 127.5 mls/ hr 1X ONCE IV Last administered on 02/03/19at 11:35; Start 02/03/19 at 11:00; Stop 02/03/19 at 12:59; Status DC Potassium Chloride (Klor-Con) 40 meq 1X ONCE PO Last administered on 02/03/19at 21:30; Start 02/03/19 at 11:30; Stop 02/03/19 at 11:31; Status DC Sodium Chloride 120 meq/Potassium Chloride 50 meq/ Sodium Phosphate 20.4 mmol/ Magnesium Sulfate 10 meq/Calcium Gluconate 10 meq/ Multivitamins 10 ml/Chromium/ Copper/Manganese/ Seleni/Zn 1 ml/ Total Parenteral Nutrition/Amino Acids/Dextrose/ Fat Emulsion Intravenous 1,512 ml @ 63 mls/hr TPN CONT IV Last administered on 02/03/19at 21:30; Start 02/03/19 at 22:00; Stop 02/04/19 at 21:59; Status DC Potassium Chloride (Klor-Con) 40 meq 1X ONCE PO Last administered on 02/03/19at 21:31; Start 02/03/19 at 21:00; Stop 02/03/19 at 21:01; Status DC Meropenem 500 mg/ Sodium Chloride 50 ml @ 100 mls/hr Q6HRS IV Last administered on 02/07/19at 05:20; Start 02/04/19 at 07:00 Oxycodone/ Acetaminophen (Percocet 5/325) 1 tab PRN Q4HRS PRN PO MODERATE TO SEVERE PAIN Last administered on 02/06/19at 01:34; Start 02/04/19 at 09:15 Docusate Sodium (Colace) 100 mg DAILY PO Last administered on 02/05/19at 09:13; Start 02/04/19 at 10:00 Iohexol (Omnipaque 350 Mg/ml) 75 ml 1X ONCE IV Last administered on 02/04/19at 12:30; Start 02/04/19 at 10:15; Stop 02/04/19 at 10:16; Status DC Info (CONTRAST GIVEN -- Rx MONITORING) 1 each PRN DAILY PRN MC SEE COMMENTS; Start 02/04/19 at 10:15; Stop 02/06/19 at 10:14; Status DC Lorazepam (Ativan) 1 mg PRN Q6HRS PRN PO ANXIETY / AGITATION Last administered on 02/04/19at 18:17; Start 02/04/19 at 13:00; Stop 02/06/19 at 10:42; Status DC Sodium Chloride 120 meq/Sodium Phosphate 24 mmol/ Potassium Chloride 50 meq/ Magnesium Sulfate 13 meq/Calcium Gluconate 10 meq/ Multivitamins 10 ml/Chromium/ Copper/Manganese/ Seleni/Zn 1 ml/ Total Parenteral Nutrition/Amino Acids/Dextrose/ Fat Emulsion Intravenous 1,512 ml @ 63 mls/hr TPN CONT IV Last administered on 02/04/19at 22:20; Start 02/04/19 at 22:00; Stop 02/05/19 at 21:59; Status DC Sodium Phosphate 15 mmol/Dextrose 255 ml @ 63.75 mls/ hr 1X ONCE IV Last administered on 02/04/19at 14:23; Start 02/04/19 at 14:00; Stop 02/04/19 at 17:59; Status DC Lorazepam (Ativan Inj) 2 mg PRN Q4HRS PRN IV ANXIETY/AGITATION (USE 2ND) Last administered on 02/04/19at 20:46; Start 02/04/19 at 20:15; Stop 02/06/19 at 10:42; Status DC Sodium Phosphate 20 mmol/Dextrose 256.6667 ml @ 64.167 m... 1X ONCE IV Last administered on 02/05/19at 12:56; Start 02/05/19 at 12:00; Stop 02/05/19 at 15:59; Status DC Sodium Chloride 120 meq/Sodium Phosphate 27 mmol/ Potassium Chloride 50 meq/ Magnesium Sulfate 13 meq/Calcium Gluconate 10 meq/ Multivitamins 10 ml/Chromium/ Copper/Manganese/ Seleni/Zn 1 ml/ Total Parenteral Nutrition/Amino Acids/Dex trose/ Fat Emulsion Intravenous 1,512 ml @ 63 mls/hr TPN CONT IV Last administered on 02/05/19at 23:33; Start 02/05/19 at 22:00; Stop 02/06/19 at 21:59; Status DC Lorazepam (Ativan Inj) 0.25 mg PRN Q6HRS PRN IV ANXIETY AGITATION, 1ST CHOICE Last administered on 02/06/19at 21:11; Start 02/06/19 at 10:45 Iohexol (Omnipaque 300 Mg/ml) 75 ml 1X ONCE IV Last administered on 02/06/19at 12:38; Start 02/06/19 at 12:00; Stop 02/06/19 at 12:01; Status DC Info (CONTRAST GIVEN -- Rx MONITORING) 1 each PRN DAILY PRN MC SEE COMMENTS; Start 02/06/19 at 11:45; Stop 02/08/19 at 11:44 Sodium Chloride 100 meq/Sodium Phosphate 20 mmol/ Potassium Chloride 50 meq/ Magnesium Sulfate 13 meq/Calcium Gluconate 10 meq/ Multivitamins 10 ml/Chromium/ Copper/Manganese/ Seleni/Zn 1 ml/ Total Parenteral Nutrition/Amino Acids/Dextrose/ Fat Emulsion Intravenous 1,512 ml @ 63 mls/hr TPN CONT IV Last administered on 02/06/19at 22:05; Start 02/06/19 at 22:00; Stop 02/07/19 at 21:59 Metronidazole 100 ml @ 100 mls/hr Q6H IV Last administered on 02/07/19at 11:00; Start 02/06/19 at 16:00 Hydromorphone HCl (Dilaudid) 1 mg PRN Q2HR PRN IV PAIN Last administered on at 09:35; Start 02/07/19 at 00:00 Metoprolol Tartrate (Lopressor Vial) 5 mg PRN Q6HRS PRN IVP hypertension; Start 02/07/19 at 00:00 Active Scripts Active Lactulose 20 Gm/30 Ml Solution 20 Gm PO PRN TID PRN 30 Days Zofran (Ondansetron Hcl) 4 Mg Tablet 1 Tab PO Q6HRS 30 Days Hydrocodone-Apap 5-325 (Hydrocodone Bit/Acetaminophen) 1 Tab Tablet 1 Tab PO PRN Q6HRS PRN 6 Days Pantoprazole Sodium (Pantoprazole Sodium) 40 Mg Tablet.dr 40 Mg PO DAILYAC 30 Days Lorazepam 1 Mg Tablet 1 Mg PO PRN Q6HRS PRN 6 Days Reported Proair Hfa Inhaler (Albuterol Sulfate) 8.5 Gm Hfa.aer.ad 1 Puff INH PRN Q6HRS PRN Trelegy Ellipta 100-62.5-25 (Fluticasone/Umeclidin/Vilanter) 1 Each Blst.w.dev 1 Puff PO DAILY Vitals/I & O Vital Sign - Last 24 Hours 02/06/19 02/06/19 02/06/19 02/07/19 15:00 19:00 23:00 03:00 Temp 98.3 97.8 98.5 98.3 97.8 98.5 Pulse 126 120 129 106 Resp 20 18 18 18 B/P (MAP) 115/64 (81) 121/70 (87) 101/69 (80) 87/52 (64) Pulse Ox 96 98 96 98 O2 Delivery Room Air Room Air Room Air Room Air 02/07/19 02/07/19 02/07/19 02/07/19 07:30 08:00 09:01 09:35 Temp 99.1 99.1 Pulse 130 130 Resp 16 16 B/P (MAP) 122/67 (85) 122/67 Pulse Ox 93 O2 Delivery Room Air Room Air 02/07/19 02/07/19 09:35 10:55 Resp 16 Pulse Ox 93 O2 Delivery Room Air Room Air O2 Flow Rate 94.0 Intake and Output 02/06/19 02/06/19 02/07/19 15:00 23:00 07:00 Intake Total 0 ml 1262 ml 50 ml Output Total 1 ml 900 ml 325 ml Balance -1 ml 362 ml -275 ml WILBUR CALHOUN MD Feb 07, 2019 13:00
[2019-02-07] MEDS: TPN PER PHARMACY MC PRN (13:37)
[2019-02-07 15:59] VITALS: BP 112/66
[2019-02-07 19:21] VITALS: BP 116/70
[2019-02-07] MEDS ORDERED: DEXTROSE 70% IV SCH ×10 (22:00)
[2019-02-07] MEDS ORDERED: AMINO ACID IV SCH ×10 (22:00)
[2019-02-07] MEDS ORDERED: TOTAL PARENTERAL NUTRITION IV SCH ×10 (22:00)
[2019-02-07] MEDS ORDERED: [UNRECOGNIZED DRUG - OTHER] IV SCH ×10 (22:00)
[2019-02-07 22:59] VITALS: BP 136/88
[2019-02-08] MEDS: MEROPENEM 500 MG in IV NORMAL SALINE 50ML 50 ML IV SCH ×2 (00:31→05:55)
[2019-02-08] MEDS: HYDROmorphone 2 MG/ML VIAL IV PRN ×5 (02:57→21:51)
[2019-02-08 03:04] VITALS: BP 133/79
[2019-02-08] MEDS: BUDESONIDE 0.5 MG/2 ML NEBU. NEB SCH ×2 (06:07→20:35)
[2019-02-08] MEDS: IPRATRPIUM/ALBUTEROL 0.5/2.5MG 3 ML NEBU. NEB SCH ×4 (06:07→20:35)
[2019-02-08 06:54] LABS: CALCIUM 7.8 mg/dL (8.5-10.1); CREATININE 0.6 mg/dL (0.6-1.0); GFR 102.7; MAGNESIUM 2.1 mg/dL (1.8-2.4); PHOSPHORUS 3.1 mg/dL (2.6-4.7); POTASSIUM 4.8 mmol/L (3.5-5.1)
[2019-02-08 07:00] VITALS: BP 126/82
--- NOTE | 2019-02-08 08:43 | PDOC ---
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 Anxiety History of Present Illness History of Present Illness Ms Iqbal is a 58yo F w/ PMHx COPD, hepatitis C, hyperlipidemia, cirrhosis of the liver, breast cancer (s/p bilateral mastectomy and adjuvant chemotherapy, partial hysterectomy), alcoholism, GERD, gallstones who presented to [facility] on 01/20/2019 with a 3-day history of right upper quadrant abdominal pain, nausea and vomiting. Ultrasound of the abdomen on 01/20/2019 revealed dilated pancreatic and common bile duct with moderately distended gallbladder. CT scan of the abdomen and pelvis on 01/21/2019 revealed a 2.8 cm mass in the head of the pancreas with no lymphadenopathy. MRCP on 01/21/2019 revealed a 2 cm mass at the head of the pancreas causing obstruction. She underwent an attempted ERCP, but was unable to undergo the procedure as she had taken something by mouth prior to the procedure. She underwent Whipple procedure on 01/27/[address] Levin. She underwent pyloric sparing pancreatic gastrostomy, hepaticojejunostomy, G tube placement and liver biopsy. There is evidence of invasive pancreatic adenocarcinoma, well to moderately differentiated involving the vascular groove soft tissue resection margin. Two out of 17 lymph nodes are positive. Liver biopsy still pending. She has been confused for a prolonged period of time now. 02/06:Transferred from ICU 02/05/2019. Her daughter, bedside relates to me some family dysfunction particularly as she was not raised by her mother. Patient very agitated this morning, calmed with pain medications. CT abdomen shows diffuse colon inflammation consistent with c. difficile. Still with WBC > 20. C. diff positive last evening. Still agitated, awakens to sternal rub. Unable to obtain ROS due to her non-verbal state. 02/05/19 Pt was seen and examined in the ICU Was sleeping Nurses reported that she was agitated and confused overnight 02/04/19 Pt seen and examined in ICU Pt agitated and trying to get out of bed She denies any pain but wants Ativan DW RN and daughter 02/03/19 Pt seen and examined in ICU. Pt is lethargic and unable to open her eyes LANG RN 02/02/19 Pt seen and examined in ICU Consulted Dr. Levin by phone in pt's room, confirmed central line can be placed despite previous mastectomy. 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 Dilaudid LANG RN and daughter and grandson 02/01/19 Pt seen/examined in the ICU Pt is awake, but weak with nausea and pain Chart Reviewed DW RN and family 01/31/19 Pt seen and examined in the ICU Pt is awake/talking and able to tolerate PO meds DW RN Chart Reviewed 9�13�2019 Patient seen and examined in the ICU Patient's daughter still present in his good support for her (Griselda) Discussed with RN Chart reviewed 01/29/19 Pt seen and examined in ICU at bedside s/p Whipple SEA drain at RLQ intact Pt sleeping upon entry and with daughter today- appears in NAD Daughter says pt is alcoholic; she also says pt did not sleep well last night LANG RN Vitals Vitals Vital Signs Date Time Temp Pulse Resp B/P (MAP) Pulse Ox O2 Delivery O2 Flow Rate FiO2 02/08/19 07:00 98.6 129 10 126/82 (97) Room Air 95.0 98.6 02/08/19 06:08 94 Physical Exam Physical Exam GENERAL: Resting quietly, mittens on HEENT: Oral cavity dry LUNGS: Clear anteriorly. HEART: S1, S2. No gallops or murmurs. ABDOMEN: Soft, mildly distended. Abd wound dressed. GJ tube intact : Moreno (02/06) EXTREMITIES: No edema, no cyanosis. Right foot bandaged DERMATOLOGIC: Warm, dry. No generalized rash. RIJ - clean General: Alert, No acute distress Heart: Normal S1, Normal S2 Lungs: Clear Abdomen: Soft, Other (dressing dry) Extremities: No clubbing, No cyanosis, No tenderness/swelling Skin: No rashes, No breakdown Labs LABS Laboratory Tests Test 02/07/19 17:42 02/07/19 23:56 02/08/19 05:48 02/08/19 06:15 Glucose (Fingerstick) 164 mg/dL (70-99) 142 mg/dL (70-99) 162 mg/dL (70-99) Sodium Level 145 mmol/L (136-145) Potassium Level 4.8 mmol/L (3.5-5.1) Chloride Level 115 mmol/L (98-107) Carbon Dioxide Level 26 mmol/L (21-32) Anion Gap 4 (6-14) Blood Urea Nitrogen 24 mg/dL (7-20) Creatinine 0.6 mg/dL (0.6-1.0) Estimated GFR (Cockcroft-Gault) 102.7 Glucose Level 158 mg/dL (70-99) Calcium Level 7.8 mg/dL (8.5-10.1) Phosphorus Level 3.1 mg/dL (2.6-4.7) Magnesium Level 2.1 mg/dL (1.8-2.4) Comment Review of Relevant I have reviewed the following items dante (where applicable) has been applied. Labs Laboratory Tests Test 02/06/19 16:55 02/07/19 00:00 02/07/19 05:30 02/07/19 06:07 Clostridium difficile Toxin B Gene Positive (Negative) Glucose (Fingerstick) 154 mg/dL (70-99) 157 mg/dL (70-99) White Blood Count 23.0 x10^3/uL (4.0-11.0) Red Blood Count 2.92 x10^6/uL (3.50-5.40) Hemoglobin 9.5 g/dL (12.0-15.5) Hematocrit 28.8 % (36.0-47.0) Mean Corpuscular Volume 99 fL (79-100) Mean Corpuscular Hemoglobin 33 pg (25-35) Mean Corpuscular Hemoglobin Concent 33 g/dL (31-37) Red Cell Distribution Width 13.9 % (11.5-14.5) Platelet Count 258 x10^3/uL (140-400) Neutrophils (%) (Auto) 74 % (31-73) Lymphocytes (%) (Auto) 13 % (24-48) Monocytes (%) (Auto) 12 % (0-9) Eosinophils (%) (Auto) 1 % (0-3) Basophils (%) (Auto) 0 % (0-3) Neutrophils # (Auto) 17.0 x10^3/uL (1.8-7.7) Lymphocytes # (Auto) 3.0 x10^3/uL (1.0-4.8) Monocytes # (Auto) 2.8 x10^3/uL (0.0-1.1) Eosinophils # (Auto) 0.1 x10^3/uL (0.0-0.7) Basophils # (Auto) 0.1 x10^3/uL (0.0-0.2) Erythrocyte Sedimentation Rate 24 (0-25) Sodium Level 143 mmol/L (136-145) Potassium Level 4.4 mmol/L (3.5-5.1) Chloride Level 113 mmol/L (98-107) Carbon Dioxide Level 26 mmol/L (21-32) Anion Gap 4 (6-14) Blood Urea Nitrogen 21 mg/dL (7-20) Creatinine 0.5 mg/dL (0.6-1.0) Estimated GFR (Cockcroft-Gault) 126.7 Glucose Level 163 mg/dL (70-99) Calcium Level 7.8 mg/dL (8.5-10.1) Ammonia 22 mcmol/L (11-34) Thyroid Stimulating Hormone (TSH) 2.306 uIU/mL (0.358-3.74) Test 02/07/19 17:42 02/07/19 23:56 02/08/19 05:48 02/08/19 06:15 Glucose (Fingerstick) 164 mg/dL (70-99) 142 mg/dL (70-99) 162 mg/dL (70-99) Sodium Level 145 mmol/L (136-145) Potassium Level 4.8 mmol/L (3.5-5.1) Chloride Level 115 mmol/L (98-107) Carbon Dioxide Level 26 mmol/L (21-32) Anion Gap 4 (6-14) Blood Urea Nitrogen 24 mg/dL (7-20) Creatinine 0.6 mg/dL (0.6-1.0) Estimated GFR (Cockcroft-Gault) 102.7 Glucose Level 158 mg/dL (70-99) Calcium Level 7.8 mg/dL (8.5-10.1) Phosphorus Level 3.1 mg/dL (2.6-4.7) Magnesium Level 2.1 mg/dL (1.8-2.4) Laboratory Tests Test 02/07/19 17:42 02/07/19 23:56 02/08/19 05:48 02/08/19 06:15 Glucose (Fingerstick) 164 mg/dL (70-99) 142 mg/dL (70-99) 162 mg/dL (70-99) Sodium Level 145 mmol/L (136-145) Potassium Level 4.8 mmol/L (3.5-5.1) Chloride Level 115 mmol/L (98-107) Carbon Dioxide Level 26 mmol/L (21-32) Anion Gap 4 (6-14) Blood Urea Nitrogen 24 mg/dL (7-20) Creatinine 0.6 mg/dL (0.6-1.0) Estimated GFR (Cockcroft-Gault) 102.7 Glucose Level 158 mg/dL (70-99) Calcium Level 7.8 mg/dL (8.5-10.1) Phosphorus Level 3.1 mg/dL (2.6-4.7) Magnesium Level 2.1 mg/dL (1.8-2.4) Microbiology 02/01/19 Urine Culture - Final, Complete 02/01/19 Urine Culture Result 1 ([facility]) - Final, Complete 02/01/19 Blood Culture - Final, Complete NO GROWTH AFTER 5 DAYS Medications Current Medications Ondansetron HCl (Zofran) 4 mg PRN Q6HRS PRN IV NAUSEA/VOMITING; Start 01/27/19 at 07:00; Stop 01/28/19 at 06:59; Status DC Fentanyl Citrate (Fentanyl 2ml Vial) 25 mcg PRN Q5MIN PRN IV MILD PAIN 1-3; Start 01/27/19 at 07:00; Stop 01/28/19 at 06:59; Status DC Fentanyl Citrate (Fentanyl 2ml Vial) 50 mcg PRN Q5MIN PRN IV MODERATE TO SEVERE PAIN; Start 01/27/19 at 07:00; Stop 01/28/19 at 06:59; Status DC Morphine Sulfate (Morphine Sulfate) 1 mg PRN Q10MIN PRN IV SEVERE PAIN 7-10; Start 01/27/19 at 07:00; Stop 01/28/19 at 06:59; Status DC Ringer's Solution 1,000 ml @ 30 mls/hr Q24H IV Last administered on 01/27/19at 08:15; Start 01/27/19 at 07:00; Stop 01/27/19 at 18:59; Status DC Hydromorphone HCl (Dilaudid) 0.5 mg PRN Q10MIN PRN IV SEV PAIN, Second choice; Start 01/27/19 at 07:00; Stop 01/28/19 at 06:59; Status DC Prochlorperazine Edisylate (Compazine) 5 mg PACU PRN PRN IV NAUSEA, MRX1 Last administered on 01/28/19at 03:33; Start 01/27/19 at 07:00; Stop 01/28/19 at 06:59; Status DC Cefoxitin Sodium (Mefoxin) 2 gm 1X PREOP PRN IVP SURGERY Last administered on 01/27/19at 12:18; Start 01/27/19 at 06:00; Stop 01/28/19 at 10:13; Status DC Sevoflurane (Ultane) 90 ml STK-MED ONCE IH ; Start 01/27/19 at 09:11; Stop 01/27/19 at 09:11; Status DC Rocuronium Garrison (Zemuron) 50 mg STK-MED ONCE .ROUTE ; Start 01/27/19 at 09:11; Stop 01/27/19 at 09:11; Status DC Fentanyl Citrate (Fentanyl 2ml Vial) 100 mcg STK-MED ONCE .ROUTE ; Start 01/27/19 at 09:11; Stop 01/27/19 at 09:11; Status DC Neostigmine Methylsulfate (Neostigmine Methylsulfate) 5 mg STK-MED ONCE .ROUTE ; Start 01/27/19 at 09:11; Stop 01/27/19 at 09:11; Status DC Midazolam HCl (Versed) 2 mg STK-MED ONCE .ROUTE ; Start 01/27/19 at 09:11; Stop 01/27/19 at 09:11; Status DC Glycopyrrolate (Robinul) 1 mg STK-MED ONCE .ROUTE ; Start 01/27/19 at 09:11; Stop 01/27/19 at 09:11; Status DC Phenylephrine HCl (Bret-Synephrine Inj) 10 mg STK-MED ONCE .ROUTE ; Start 01/27/19 at 09:11; Stop 01/27/19 at 09:12; Status DC Dexamethasone Sodium Phosphate (Decadron) 4 mg STK-MED ONCE .ROUTE ; Start 01/27/19 at 09:11; Stop 01/27/19 at 09:12; Status DC Ondansetron HCl (Zofran) 4 mg STK-MED ONCE .ROUTE ; Start 01/27/19 at 09:12; Stop 01/27/19 at 09:12; Status DC Lidocaine HCl (Lidocaine Pf 2% Vial) 5 ml STK-MED ONCE .ROUTE ; Start 01/27/19 at 09:12; Stop 01/27/19 at 09:12; Status DC Propofol 20 ml @ As Directed STK-MED ONCE IV ; Start 01/27/19 at 09:12; Stop 01/27/19 at 09:12; Status DC Sodium Chloride (Normal Saline Flush) 3 ml QSHIFT PRN IV AFTER MEDS AND BLOOD DRAWS; Start 01/27/19 at 09:30; Stop 02/03/19 at 09:09; Status DC Ibuprofen (Motrin) 400 mg PRN Q6HRS PRN PO MILD PAIN 1-3; Start 01/27/19 at 09:30 Naloxone HCl (Narcan) 0.4 mg PRN Q2MIN PRN IV SEE INSTRUCTIONS; Start 01/27/19 at 09:30; Stop 01/31/19 at 09:15; Status DC Sodium Chloride 1,000 ml @ 25 mls/hr Q24H IV ; Start 01/27/19 at 09:28; Stop 01/30/19 at 14:52; Status DC Ondansetron HCl (Zofran) 4 mg PRN Q6HRS PRN IV Nausea, 2nd Choice; Start 01/27/19 at 09:30; Status Cancel Epinephrine HCl (EPINEPHrine SYRINGE) 1 mg STK-MED ONCE .ROUTE ; Start 01/27/19 at 10:15; Stop 01/27/19 at 10:16; Status DC Lidocaine HCl (Lidocaine Pf 2% Vial) 5 ml STK-MED ONCE .ROUTE ; Start 01/27/19 at 10:15; Stop 01/27/19 at 10:16; Status DC Ropivacaine (Naropin 0.5%) 20 ml STK-MED ONCE .ROUTE ; Start 01/27/19 at 10:17; Stop 01/27/19 at 10:18; Status DC Cellulose (Surgicel Hemostat 4x8) 1 each STK-MED ONCE .ROUTE Last administered on 01/27/19at 11:25; Start 01/27/19 at 11:24; Stop 01/27/19 at 11:25; Status DC Cellulose (Surgicel Hemostat 4x8) 1 each STK-MED ONCE .ROUTE Last administered on 01/27/19at 11:39; Start 01/27/19 at 11:38; Stop 01/27/19 at 11:38; Status DC Rocuronium Garrison (Zemuron) 50 mg STK-MED ONCE .ROUTE ; Start 01/27/19 at 12:09; Stop 01/27/19 at 12:09; Status DC Cefoxitin Sodium (Mefoxin) 2 gm 1X ONCE IVP Last administered on 01/27/19at 12:33; Start 01/27/19 at 12:30; Stop 01/27/19 at 12:31; Status DC Phenylephrine HCl (Bret-Synephrine Inj) 10 mg STK-MED ONCE .ROUTE ; Start 01/27/19 at 14:49; Stop 01/27/19 at 14:49; Status DC Sodium Chloride 35 ml/Fentanyl Citrate 250 mcg/ Ropivacaine 10 ml/ Epidural Dosage Infused (Pha) 50 ml @ 0 mls/hr CONT EPID ; Start 01/27/19 at 15:00; Status UNV Sodium Chloride 35 ml/Fentanyl Citrate 250 mcg/ Ropivacaine 10 ml/ Epidural Dosage Infused (Pha) 50 ml @ 0 mls/hr CONT PRN EPID SEE PROTOCOL TABLE Last administered on 01/28/19at 05:00; Start 01/27/19 at 15:00; Stop 01/28/19 at 08:11; Status DC Cefoxitin Sodium (Mefoxin) 2 gm 1X PREOP PRN IVP SURGERY Last administered on 01/27/19at 16:47; Start 01/27/19 at 15:15; Stop 01/28/19 at 10:13; Status DC Famotidine (Pepcid Vial) 20 mg BID IVP Last administered on 02/07/19at 23:14; Start 01/27/19 at 21:00 Enoxaparin Sodium (Lovenox 40mg Syringe) 40 mg Q24H SQ Last administered on 01/29/19at 12:24; Start 01/28/19 at 09:00; Stop 01/29/19 at 17:14; Status DC Sodium Chloride (Normal Saline Flush) 3 ml QSHIFT PRN IV AFTER MEDS AND BLOOD DRAWS; Start 01/27/19 at 15:45 Ringer's Solution 1,000 ml @ 100 mls/hr Q10H IV Last administered on 01/30/19at 03:20; Start 01/27/19 at 15:33; Stop 01/30/19 at 14:52; Status DC Naloxone HCl (Narcan) 0.4 mg PRN Q2MIN PRN IV SEE INSTRUCTIONS; Start 01/27/19 at 15:45 Sodium Chloride 1,000 ml @ 25 mls/hr Q24H IV ; Start 01/27/19 at 15:33; Stop 01/28/19 at 15:52; Status DC Ondansetron HCl (Zofran) 4 mg PRN Q6HRS PRN IV NAUESA, 1ST CHOICE Last administered on 02/01/19at 23:49; Start 01/27/19 at 15:45 Sodium Chloride 35 ml/Fentanyl Citrate 250 mcg/ Ropivacaine 10 ml/ Epidural Dosage Infused (Pha) 50 ml @ 0 mls/hr CONT PRN EPID SEE PROTOCOL TABLE Last administered on 02/01/19at 08:00; Start 01/28/19 at 08:15; Stop 02/01/19 at 10:03; Status DC Throat Lozenges (Cepacol Sore Throat Lozenge) 1 karthikeyan PRN Q2HRS PRN PO SORE THROAT Last administered on 01/28/19at 10:49; Start 01/28/19 at 09:30 Lorazepam (Ativan Inj) 0.5 mg PRN Q6HRS PRN IV ANXIETY AGITATION, 1ST CHOICE Last administered on 01/31/19at 21:13; Start 01/28/19 at 12:30; Stop 02/06/19 at 10:42; Status DC Thiamine HCl 100 mg DAILY IM Last administered on 01/30/19at 09:12; Start 01/28/19 at 13:00; Stop 01/31/19 at 11:44; Status DC Lorazepam (Ativan Inj) 2 mg PRN Q1HR PRN IV For CIWA 8-14 Last administered on 02/06/19at 03:27; Start 01/28/19 at 13:00; Stop 02/06/19 at 10:42; Status DC Lorazepam (Ativan Inj) 4 mg PRN Q1HR PRN IV For CIWA 15 or greater; Start 01/28/19 at 13:00; Stop 02/06/19 at 10:42; Status DC Haloperidol Lactate (Haldol Inj) 5 mg PRN Q4HRS PRN IVP Hallucinatns,Confusn,Delirium Last administered on 02/06/19at 21:35; Start 01/28/19 at 13:00 Diphenhydramine HCl (Benadryl) 25 mg PRN Q15MIN PRN IVP EPS symptoms 2'Haldol admin; Start 01/28/19 at 13:00 Lorazepam (Ativan Inj) 2 mg PRN Q15MIN PRN IV SEE COMMENTS Last administered on 02/05/19at 01:12; Start 01/28/19 at 13:00; Stop 02/06/19 at 10:42; Status DC Lorazepam (Ativan Inj) 4 mg PRN Q15MIN PRN IV SEE COMMENTS Last administered on 02/05/19at 02:29; Start 01/28/19 at 13:00; Stop 02/06/19 at 10:42; Status DC Albuterol/ Ipratropium (Duoneb) 3 ml RTQID NEB Last administered on 02/08/19at 06:07; Start 01/28/19 at 13:00 Non-Formulary Medication (Fluticasone/ Umeclidin/ Vilanter (Trelegy Ellipta 100-62.5-25)) 1 puff DAILY PO ; Start 01/29/19 at 09:00; Status UNV Budesonide (Pulmicort) 0.5 mg RTBID NEB Last administered on 02/08/19at 06:07; Start 01/28/19 at 20:00 Albuterol Sulfate (Ventolin Neb Soln) 2.5 mg PRN Q6HRS PRN INH SHORTNESS OF BREATH; Start 01/28/19 at 14:00 Lorazepam (Ativan) 1 mg PRN Q6HRS PRN PO ANXIETY / AGITATION Last administered on 02/04/19at 12:07; Start 01/28/19 at 14:00; Stop 02/04/19 at 12:58; Status DC Pantoprazole Sodium (Protonix) 40 mg DAILYAC PO Last administered on 02/07/19at 09:35; Start 01/28/19 at 16:30 Metoprolol Tartrate (Lopressor Vial) 12.5 mg BID IVP ; Start 01/29/19 at 21:00; Stop 01/29/19 at 14:50; Status DC Metoprolol Tartrate (Lopressor) 12.5 mg BID PO Last administered on 02/07/19at 09:35; Start 01/29/19 at 17:00 Amino Acids/ Glycerin/ Electrolytes 1,000 ml @ 75 mls/hr [id number] IV Last administered on 02/02/19at 18:20; Start 01/30/19 at 11:30; Stop 02/02/19 at 21:59; Status DC Acetaminophen (Tylenol) 650 mg PRN Q6HRS PRN PO fever Last administered on 02/01/19 08:45; Start 01/31/19 at 01:15 Thiamine Mononitrate (Vitamin B-1) 100 mg DAILY PO Last administered on 02/07/19 09:35; Start 01/31/19 at 12:30 Heparin Sodium (Porcine) (Heparin Sodium) 5,000 unit Q12HR SQ Last administered on 02/07/19at 23:14; Start 01/31/19 at 14:00 Piperacillin Sod/ Tazobactam Sod 3.375 gm/Sodium Chloride 50 ml @ 100 mls/hr Q6HRS IV Last administered on 02/04/19at 05:58; Start 02/01/19 at 10:00; Stop 02/04/19 at 06:32; Status DC Linezolid/Dextrose 300 ml @ 300 mls/hr Q12HR IV Last administered on 02/03/19at 21:30; Start 02/01/19 at 10:00; Stop 02/04/19 at 06:32; Status DC Micafungin Sodium 100 mg/Dextrose 100 ml @ 100 mls/hr Q24H IV Last administered on 02/07/19at 09:37; Start 02/01/19 at 11:00 Sodium Chloride 35 ml/Fentanyl Citrate 250 mcg/ Ropivacaine 10 ml/ Epidural Dosage Infused (Pha) 50 ml @ 0 mls/hr CONT PRN EPID SEE PROTOCOL TABLE Last administered on 02/01/19at 11:16; Start 02/01/19 at 10:15; Stop 02/04/19 at 09:09; Status DC Fentanyl Citrate (Fentanyl 2ml Vial) 25 mcg PRN Q5MIN PRN IV MILD PAIN 1-3; Start 02/01/19 at 14:00; Stop 02/02/19 at 13:59; Status DC Fentanyl Citrate (Fentanyl 2ml Vial) 50 mcg PRN Q5MIN PRN IV MODERATE TO SEVERE PAIN Last administered on 02/02/19at 09:09; Start 02/01/19 at 14:00; Stop 02/02/19 at 13:59; Status DC Hydromorphone HCl (Dilaudid) 1 mg PRN Q2HR PRN IV PAIN Last administered on 02/06/19at 09:11; Start 02/01/19 at 16:30; Stop 02/06/19 at 10:42; Status DC Ketorolac Tromethamine (Toradol 30mg Vial) 30 mg 1X ONCE IV Last administered on 02/01/19at 16:43; Start 02/01/19 at 16:30; Stop 02/01/19 at 16:31; Status DC Sodium Chloride 500 ml @ 500 mls/hr 1X ONCE IV Last administered on 02/02/19at 05:37; Start 02/02/19 at 05:30; Stop 02/02/19 at 06:29; Status DC Hydromorphone HCl 30 ml @ 0 mls/hr CONT PRN PRN IV PER PROTOCOL Last administered on 02/02/19at 10:32; Start 02/02/19 at 09:00; Stop 02/04/19 at 09:09; Status DC Info (Tpn Per Pharmacy) 1 each PRN DAILY PRN MC SEE COMMENTS Last administered on 02/07/19at 13:37; Start 02/02/19 at 10:00 Sodium Phosphate 20 mmol/Dextrose 256.6667 ml @ 64.167 m... 1X ONCE IV Last administered on 02/02/19at 14:38; Start 02/02/19 at 11:00; Stop 02/02/19 at 14:59; Status DC Furosemide (Lasix) 20 mg 1X ONCE IVP Last administered on 02/02/19at 16:16; Start 02/02/19 at 16:00; Stop 02/02/19 at 16:01; Status DC Lidocaine/Sodium Bicarbonate (Buffered Lidocaine 1%) 3 ml 1X ONCE INJ ; Start 02/02/19 at 14:00; Stop 02/02/19 at 14:05; Status DC Sodium Chloride 80 meq/Potassium Chloride 40 meq/ Sodium Phosphate 13.6 mmol/ Magnesium Sulfate 10 meq/Calcium Gluconate 10 meq/ Multivitamins 10 ml/Chromium/ Copper/Manganese/ Seleni/Zn 1 ml/ Total Parenteral Nutrition/Amino Acids/Dextrose/ Fat Emulsion Intravenous 1,512 ml @ 63 mls/hr TPN CONT IV Last administered on 02/02/19at 21:50; Start 02/02/19 at 22:00; Stop 02/03/19 at 21:59; Status DC Potassium Phosphate 15 mmol/ Sodium Chloride 255 ml @ 127.5 mls/ hr 1X ONCE IV Last administered on 02/03/19at 11:35; Start 02/03/19 at 11:00; Stop 02/03/19 at 12:59; Status DC Potassium Chloride (Klor-Con) 40 meq 1X ONCE PO Last administered on 02/03/19at 21:30; Start 02/03/19 at 11:30; Stop 02/03/19 at 11:31; Status DC Sodium Chloride 120 meq/Potassium Chloride 50 meq/ Sodium Phosphate 20.4 mmol/ Magnesium Sulfate 10 meq/Calcium Gluconate 10 meq/ Multivitamins 10 ml/Chromium/ Copper/Manganese/ Seleni/Zn 1 ml/ Total Parenteral Nutrition/Amino Acids/Dextrose/ Fat Emulsion Intravenous 1,512 ml @ 63 mls/hr TPN CONT IV Last administered on 02/03/19at 21:30; Start 02/03/19 at 22:00; Stop 02/04/19 at 21:59; Status DC Potassium Chloride (Klor-Con) 40 meq 1X ONCE PO Last administered on 02/03/19at 21:31; Start 02/03/19 at 21:00; Stop 02/03/19 at 21:01; Status DC Meropenem 500 mg/ Sodium Chloride 50 ml @ 100 mls/hr Q6HRS IV Last administered on 02/08/19at 05:55; Start 02/04/19 at 07:00 Oxycodone/ Acetaminophen (Percocet 5/325) 1 tab PRN Q4HRS PRN PO MODERATE TO SEVERE PAIN Last administered on 02/06/19at 01:34; Start 02/04/19 at 09:15 Docusate Sodium (Colace) 100 mg DAILY PO Last administered on 02/05/19at 09:13; Start 02/04/19 at 10:00 Iohexol (Omnipaque 350 Mg/ml) 75 ml 1X ONCE IV Last administered on 02/04/19at 12:30; Start 02/04/19 at 10:15; Stop 02/04/19 at 10:16; Status DC Info (CONTRAST GIVEN -- Rx MONITORING) 1 each PRN DAILY PRN MC SEE COMMENTS; Start 02/04/19 at 10:15; Stop 02/06/19 at 10:14; Status DC Lorazepam (Ativan) 1 mg PRN Q6HRS PRN PO ANXIETY / AGITATION Last administered on 02/04/19at 18:17; Start 02/04/19 at 13:00; Stop 02/06/19 at 10:42; Status DC Sodium Chloride 120 meq/Sodium Phosphate 24 mmol/ Potassium Chloride 50 meq/ Magnesium Sulfate 13 meq/Calcium Gluconate 10 meq/ Multivitamins 10 ml/Chromium/ Copper/Manganese/ Seleni/Zn 1 ml/ Total Parenteral Nutrition/Amino Acids/ Dextrose/ Fat Emulsion Intravenous 1,512 ml @ 63 mls/hr TPN CONT IV Last administered on 02/04/19at 22:20; Start 02/04/19 at 22:00; Stop 02/05/19 at 21:59; Status DC Sodium Phosphate 15 mmol/Dextrose 255 ml @ 63.75 mls/ hr 1X ONCE IV Last administered on 02/04/19at 14:23; Start 02/04/19 at 14:00; Stop 02/04/19 at 17:59; Status DC Lorazepam (Ativan Inj) 2 mg PRN Q4HRS PRN IV ANXIETY/AGITATION (USE 2ND) Last administered on 02/04/19at 20:46; Start 02/04/19 at 20:15; Stop 02/06/19 at 10:42; Status DC Sodium Phosphate 20 mmol/Dextrose 256.6667 ml @ 64.167 m... 1X ONCE IV Last administered on 02/05/19at 12:56; Start 02/05/19 at 12:00; Stop 02/05/19 at 15:59; Status DC Sodium Chloride 120 meq/Sodium Phosphate 27 mmol/ Potassium Chloride 50 meq/ Magnesium Sulfate 13 meq/Calcium Gluconate 10 meq/ Multivitamins 10 ml/Chromium/ Copper/Manganese/ Seleni/Zn 1 ml/ Total Parenteral Nutrition/Amino Acids/Dextrose/ Fat Emulsion Intravenous 1,512 ml @ 63 mls/hr TPN CONT IV Last administered on 02/05/19at 23:33; Start 02/05/19 at 22:00; Stop 02/06/19 at 21:59; Status DC Lorazepam (Ativan Inj) 0.25 mg PRN Q6HRS PRN IV ANXIETY AGITATION, 1ST CHOICE Last administered on 02/06/19at 21:11; Start 02/06/19 at 10:45 Iohexol (Omnipaque 300 Mg/ml) 75 ml 1X ONCE IV Last administered on 02/06/19at 12:38; Start 02/06/19 at 12:00; Stop 02/06/19 at 12:01; Status DC Info (CONTRAST GIVEN -- Rx MONITORING) 1 each PRN DAILY PRN MC SEE COMMENTS; Start 02/06/19 at 11:45; Stop 02/08/19 at 11:44 Sodium Chloride 100 meq/Sodium Phosphate 20 mmol/ Potassium Chloride 50 meq/ Magnesium Sulfate 13 meq/Calcium Gluconate 10 meq/ Multivitamins 10 ml/Chromium/ Copper/Manganese/ Seleni/Zn 1 ml/ Total Parenteral Nutrition/Amino Acids/Dextrose/ Fat Emulsion Intravenous 1,512 ml @ 63 mls/hr TPN CONT IV Last administered on 02/06/19at 22:05; Start 02/06/19 at 22:00; Stop 02/07/19 at 21:59; Status DC Metronidazole 100 ml @ 100 mls/hr Q6H IV Last administered on 02/08/19at 03:57; Start 02/06/19 at 16:00 Hydromorphone HCl (Dilaudid) 1 mg PRN Q2HR PRN IV PAIN Last administered on 02/08/19at 02:57; Start 02/07/19 at 00:00 Metoprolol Tartrate (Lopressor Vial) 5 mg PRN Q6HRS PRN IVP hypertension; Start 02/07/19 at 00:00 Sodium Chloride 50 meq/Sodium Phosphate 20 mmol/ Potassium Chloride 50 meq/ Magnesium Sulfate 13 meq/Calcium Gluconate 10 meq/ Multivitamins 10 ml/Chromium/ Copper/Manganese/ Seleni/Zn 1 ml/ Total Parenteral Nutrition/Amino Acids/Dextrose/ Fat Emulsion Intravenous 1,512 ml @ 63 mls/hr TPN CONT IV Last administered on 02/07/19at 23:14; Start 02/07/19 at 22:00; Stop 02/08/19 at 21:59 Vancomycin HCl (Vancomycin Oral Solution) 125 mg [id number] PO ; Start 02/08/19 at 09:00; Status UNV Active Scripts Active Lactulose 20 Gm/30 Ml Solution 20 Gm PO PRN TID PRN 30 Days Zofran (Ondansetron Hcl) 4 Mg Tablet 1 Tab PO Q6HRS 30 Days Hydrocodone-Apap 5-325 (Hydrocodone Bit/Acetaminophen) 1 Tab Tablet 1 Tab PO PRN Q6HRS PRN 6 Days Pantoprazole Sodium (Pantoprazole Sodium) 40 Mg Tablet.dr 40 Mg PO DAILYAC 30 Days Lorazepam 1 Mg Tablet 1 Mg PO PRN Q6HRS PRN 6 Days Reported Proair Hfa Inhaler (Albuterol Sulfate) 8.5 Gm Hfa.aer.ad 1 Puff INH PRN Q6HRS PRN Trelegy Ellipta 100-62.5-25 (Fluticasone/Umeclidin/Vilanter) 1 Each Blst.w.dev 1 Puff PO DAILY Vitals/I & O Vital Sign - Last 24 Hours 02/07/19 02/07/19 02/07/19 02/07/19 09:01 09:35 09:35 10:55 Temp 99.1 99.1 Pulse 130 130 Resp 16 16 B/P (MAP) 122/67 (85) 122/67 Pulse Ox 93 93 O2 Delivery Room Air Room Air Room Air O2 Flow Rate 94.0 02/07/19 02/07/19 02/07/19 02/07/19 11:59 15:27 15:59 16:27 Temp 98.3 98.3 98.3 98.3 Pulse 121 113 Resp 18 16 B/P (MAP) 127/64 (85) 112/66 (81) Pulse Ox 94 94 96 O2 Delivery Room Air Room Air Room Air Room Air O2 Flow Rate 94.0 02/07/19 02/07/19 02/07/19 02/07/19 16:27 18:29 18:29 19:21 Temp 98.3 98.3 Pulse 121 Resp 11 B/P (MAP) 116/70 (85) Pulse Ox 94 93 O2 Delivery Room Air Room Air Room Air Room Air O2 Flow Rate 94.0 02/07/19 02/07/19 02/08/19 02/08/19 22:59 23:14 03:04 06:08 Temp 97.3 98.9 97.3 98.9 Pulse 121 135 Resp 11 10 B/P (MAP) 136/88 (104) 136/88 133/79 (97) Pulse Ox 95 93 94 O2 Delivery Room Air Room Air Room Air 02/08/19 07:00 Temp 98.6 98.6 Pulse 129 Resp 10 B/P (MAP) 126/82 (97) O2 Delivery Room Air O2 Flow Rate 95.0 Intake and Output 02/07/19 02/07/19 02/08/19 15:00 23:00 07:00 Intake Total 0 ml 1475 ml Output Total 400 ml 520 ml Balance 0 ml 1075 ml -520 ml TAMAR CHAMPAGNE MD Feb 08, 2019 08:42
[2019-02-08] MEDS: DOCUSATE SODIUM 100 MG CAPSULE. PO SCH (09:00)
[2019-02-08] MEDS: FAMOTIDINE 20 MG/2 ML VIAL IVP SCH ×2 (09:19→21:52)
[2019-02-08] MEDS: PANTOPRAZOLE 40 MG TABLET.DR. PO SCH (09:25)
[2019-02-08] MEDS: THIAMINE 100 MG TABLET. PO SCH (09:25)
[2019-02-08] MEDS: METOPROLOL TART IMMED RELEASE 25 MG TABLET. PO SCH ×2 (09:26→21:57)
[2019-02-08] MEDS: HEPARIN for SUB-Q USE 5,000 UNIT/ML VIAL. SQ SCH ×2 (09:30→23:52)
[2019-02-08] MEDS: VANCOMYCIN 125 MG/2.5 ML ORAL SOLUTION. PO SCH ×4 (09:32→21:51)
[2019-02-08] MEDS: MICAFUNGIN 100 MG in IV DEXTROSE 5% 100ML 100 ML IV SCH (10:23)
--- NOTE | 2019-02-08 10:42 | PDOC ---
PROGRESS NOTES Subjective Subjective pt sleeping, arouses some during exam Objective Objective Vital Signs Date Time Temp Pulse Resp B/P (MAP) Pulse Ox O2 Delivery O2 Flow Rate FiO2 02/08/19 10:15 Room Air 02/08/19 09:40 129 126/82 02/08/19 07:00 98.6 10 95.0 98.6 02/08/19 06:08 94 Intake and Output 02/08/19 07:00 Intake Total 1475 ml Output Total 920 ml Balance 555 ml Intake Oral 0 ml IV Total 1475 ml Output Urine Total 495 ml Drainage Total 425 ml Physical Exam Physical Exam no more drainage from Gtube; 2 areas of drainage on abdomen, suspect prior drain holes Assessment Assessment S/P Whipple Plan Plan of Care Note increased drainage from prior drain holes; reviewed with Dr Levin, asks to consult IR to consider percutaneous drain placement Comment Review of Relevant I have reviewed the following items dante (where applicable) has been applied. Labs Laboratory Tests Test 02/06/19 16:55 02/07/19 00:00 02/07/19 05:30 02/07/19 06:07 Clostridium difficile Toxin B Gene Positive (Negative) Glucose (Fingerstick) 154 mg/dL (70-99) 157 mg/dL (70-99) White Blood Count 23.0 x10^3/uL (4.0-11.0) Red Blood Count 2.92 x10^6/uL (3.50-5.40) Hemoglobin 9.5 g/dL (12.0-15.5) Hematocrit 28.8 % (36.0-47.0) Mean Corpuscular Volume 99 fL (79-100) Mean Corpuscular Hemoglobin 33 pg (25-35) Mean Corpuscular Hemoglobin Concent 33 g/dL (31-37) Red Cell Distribution Width 13.9 % (11.5-14.5) Platelet Count 258 x10^3/uL (140-400) Neutrophils (%) (Auto) 74 % (31-73) Lymphocytes (%) (Auto) 13 % (24-48) Monocytes (%) (Auto) 12 % (0-9) Eosinophils (%) (Auto) 1 % (0-3) Basophils (%) (Auto) 0 % (0-3) Neutrophils # (Auto) 17.0 x10^3/uL (1.8-7.7) Lymphocytes # (Auto) 3.0 x10^3/uL (1.0-4.8) Monocytes # (Auto) 2.8 x10^3/uL (0.0-1.1) Eosinophils # (Auto) 0.1 x10^3/uL (0.0-0.7) Basophils # (Auto) 0.1 x10^3/uL (0.0-0.2) Erythrocyte Sedimentation Rate 24 (0-25) Sodium Level 143 mmol/L (136-145) Potassium Level 4.4 mmol/L (3.5-5.1) Chloride Level 113 mmol/L (98-107) Carbon Dioxide Level 26 mmol/L (21-32) Anion Gap 4 (6-14) Blood Urea Nitrogen 21 mg/dL (7-20) Creatinine 0.5 mg/dL (0.6-1.0) Estimated GFR (Cockcroft-Gault) 126.7 Glucose Level 163 mg/dL (70-99) Calcium Level 7.8 mg/dL (8.5-10.1) Ammonia 22 mcmol/L (11-34) Thyroid Stimulating Hormone (TSH) 2.306 uIU/mL (0.358-3.74) Test 02/07/19 17:42 02/07/19 23:56 02/08/19 05:48 02/08/19 06:15 Glucose (Fingerstick) 164 mg/dL (70-99) 142 mg/dL (70-99) 162 mg/dL (70-99) Sodium Level 145 mmol/L (136-145) Potassium Level 4.8 mmol/L (3.5-5.1) Chloride Level 115 mmol/L (98-107) Carbon Dioxide Level 26 mmol/L (21-32) Anion Gap 4 (6-14) Blood Urea Nitrogen 24 mg/dL (7-20) Creatinine 0.6 mg/dL (0.6-1.0) Estimated GFR (Cockcroft-Gault) 102.7 Glucose Level 158 mg/dL (70-99) Calcium Level 7.8 mg/dL (8.5-10.1) Phosphorus Level 3.1 mg/dL (2.6-4.7) Magnesium Level 2.1 mg/dL (1.8-2.4) Laboratory Tests Test 02/07/19 17:42 02/07/19 23:56 02/08/19 05:48 02/08/19 06:15 Glucose (Fingerstick) 164 mg/dL (70-99) 142 mg/dL (70-99) 162 mg/dL (70-99) Sodium Level 145 mmol/L (136-145) Potassium Level 4.8 mmol/L (3.5-5.1) Chloride Level 115 mmol/L (98-107) Carbon Dioxide Level 26 mmol/L (21-32) Anion Gap 4 (6-14) Blood Urea Nitrogen 24 mg/dL (7-20) Creatinine 0.6 mg/dL (0.6-1.0) Estimated GFR (Cockcroft-Gault) 102.7 Glucose Level 158 mg/dL (70-99) Calcium Level 7.8 mg/dL (8.5-10.1) Phosphorus Level 3.1 mg/dL (2.6-4.7) Magnesium Level 2.1 mg/dL (1.8-2.4) Microbiology 02/01/19 Urine Culture - Final, Complete 02/01/19 Urine Culture Result 1 ([facility]ON) - Final, Complete 02/01/19 Blood Culture - Final, Complete NO GROWTH AFTER 5 DAYS Medications Current Medications Ondansetron HCl (Zofran) 4 mg PRN Q6HRS PRN IV NAUSEA/VOMITING; Start 01/27/19 at 07:00; Stop 01/28/19 at 06:59; Status DC Fentanyl Citrate (Fentanyl 2ml Vial) 25 mcg PRN Q5MIN PRN IV MILD PAIN 1-3; Start 01/27/19 at 07:00; Stop 01/28/19 at 06:59; Status DC Fentanyl Citrate (Fentanyl 2ml Vial) 50 mcg PRN Q5MIN PRN IV MODERATE TO SEVERE PAIN; Start 01/27/19 at 07:00; Stop 01/28/19 at 06:59; Status DC Morphine Sulfate (Morphine Sulfate) 1 mg PRN Q10MIN PRN IV SEVERE PAIN 7-10; Start 01/27/19 at 07:00; Stop 01/28/19 at 06:59; Status DC Ringer's Solution 1,000 ml @ 30 mls/hr Q24H IV Last administered on 01/27/19at 08:15; Start 01/27/19 at 07:00; Stop 01/27/19 at 18:59; Status DC Hydromorphone HCl (Dilaudid) 0.5 mg PRN Q10MIN PRN IV SEV PAIN, Second choice; Start 01/27/19 at 07:00; Stop 01/28/19 at 06:59; Status DC Prochlorperazine Edisylate (Compazine) 5 mg PACU PRN PRN IV NAUSEA, MRX1 Last administered on 01/28/19at 03:33; Start 01/27/19 at 07:00; Stop 01/28/19 at 06:59; Status DC Cefoxitin Sodium (Mefoxin) 2 gm 1X PREOP PRN IVP SURGERY Last administered on 01/27/19at 12:18; Start 01/27/19 at 06:00; Stop 01/28/19 at 10:13; Status DC Sevoflurane (Ultane) 90 ml STK-MED ONCE IH ; Start 01/27/19 at 09:11; Stop 01/27 at 09:11; Status DC Rocuronium [place] (Zemuron) 50 mg STK-MED ONCE .ROUTE ; Start 01/27/19 at 09:11; Stop 01/27/19 at 09:11; Status DC Fentanyl Citrate (Fentanyl 2ml Vial) 100 mcg STK-MED ONCE .ROUTE ; Start 01/27/19 at 09:11; Stop 01/27/19 at 09:11; Status DC Neostigmine Methylsulfate (Neostigmine Methylsulfate) 5 mg STK-MED ONCE .ROUTE ; Start 01/27/19 at 09:11; Stop 01/27/19 at 09:11; Status DC Midazolam HCl (Versed) 2 mg STK-MED ONCE .ROUTE ; Start 01/27/19 at 09:11; Stop 01/27/19 at 09:11; Status DC Glycopyrrolate (Robinul) 1 mg STK-MED ONCE .ROUTE ; Start 01/27/19 at 09:11; Stop 01/27/19 at 09:11; Status DC Phenylephrine HCl (Bret-Synephrine Inj) 10 mg STK-MED ONCE .ROUTE ; Start 01/27/19 at 09:11; Stop 01/27/19 at 09:12; Status DC Dexamethasone Sodium Phosphate (Decadron) 4 mg STK-MED ONCE .ROUTE ; Start 01/27/19 at 09:11; Stop 01/27/19 at 09:12; Status DC Ondansetron HCl (Zofran) 4 mg STK-MED ONCE .ROUTE ; Start 01/27/19 at 09:12; Stop 01/27/19 at 09:12; Status DC Lidocaine HCl (Lidocaine Pf 2% Vial) 5 ml STK-MED ONCE .ROUTE ; Start 01/27/19 at 09:12; Stop 01/27/19 at 09:12; Status DC Propofol 20 ml @ As Directed STK-MED ONCE IV ; Start 01/27/19 at 09:12; Stop 01/27/19 at 09:12; Status DC Sodium Chloride (Normal Saline Flush) 3 ml QSHIFT PRN IV AFTER MEDS AND BLOOD DRAWS; Start 01/27/19 at 09:30; Stop 02/03/19 at 09:09; Status DC Ibuprofen (Motrin) 400 mg PRN Q6HRS PRN PO MILD PAIN 1-3; Start 01/27/19 at 09:30 Naloxone HCl (Narcan) 0.4 mg PRN Q2MIN PRN IV SEE INSTRUCTIONS; Start 01/27/19 at 09:30; Stop 01/31/19 at 09:15; Status DC Sodium Chloride 1,000 ml @ 25 mls/hr Q24H IV ; Start 01/27/19 at 09:28; Stop 01/30/19 at 14:52; Status DC Ondansetron HCl (Zofran) 4 mg PRN Q6HRS PRN IV Nausea, 2nd Choice; Start 01/27/19 at 09:30; Status Cancel Epinephrine HCl (EPINEPHrine SYRINGE) 1 mg STK-MED ONCE .ROUTE ; Start 01/27/19 at 10:15; Stop 01/27/19 at 10:16; Status DC Lidocaine HCl (Lidocaine Pf 2% Vial) 5 ml STK-MED ONCE .ROUTE ; Start 01/27/19 at 10:15; Stop 01/27/19 at 10:16; Status DC Ropivacaine (Naropin 0.5%) 20 ml STK-MED ONCE .ROUTE ; Start 01/27/19 at 10:17; Stop 01/27/19 at 10:18; Status DC Cellulose (Surgicel Hemostat 4x8) 1 each STK-MED ONCE .ROUTE Last administered on 01/27/19at 11:25; Start 01/27/19 at 11:24; Stop 01/27/19 at 11:25; Status DC Cellulose (Surgicel Hemostat 4x8) 1 each STK-MED ONCE .ROUTE Last administered on 01/27/19at 11:39; Start 01/27/19 at 11:38; Stop 01/27/19 at 11:38; Status DC Rocuronium [place] (Zemuron) 50 mg STK-MED ONCE .ROUTE ; Start 01/27/19 at 12:09; Stop 01/27/19 at 12:09; Status DC Cefoxitin Sodium (Mefoxin) 2 gm 1X ONCE IVP Last administered on 01/27/19at 12:33; Start 01/27/19 at 12:30; Stop 01/27/19 at 12:31; Status DC Phenylephrine HCl (Bret-Synephrine Inj) 10 mg STK-MED ONCE .ROUTE ; Start 01/27/19 at 14:49; Stop 01/27/19 at 14:49; Status DC Sodium Chloride 35 ml/Fentanyl Citrate 250 mcg/ Ropivacaine 10 ml/ Epidural Dosage Infused (Pha) 50 ml @ 0 mls/hr CONT EPID ; Start 01/27/19 at 15:00; Status UNV Sodium Chloride 35 ml/Fentanyl Citrate 250 mcg/ Ropivacaine 10 ml/ Epidural Dosage Infused (Pha) 50 ml @ 0 mls/hr CONT PRN EPID SEE PROTOCOL TABLE Last administered on 01/28/19at 05:00; Start 01/27/19 at 15:00; Stop 01/28/19 at 08:11; Status DC Cefoxitin Sodium (Mefoxin) 2 gm 1X PREOP PRN IVP SURGERY Last administered on 01/27/19at 16:47; Start 01/27/19 at 15:15; Stop 01/28/19 at 10:13; Status DC Famotidine (Pepcid Vial) 20 mg BID IVP Last administered on 02/08/19at 09:40; Start 01/27/19 at 21:00 Enoxaparin Sodium (Lovenox 40mg Syringe) 40 mg Q24H SQ Last administered on 01/29/19at 12:24; Start 01/28/19 at 09:00; Stop 01/29/19 at 17:14; Status DC Sodium Chloride (Normal Saline Flush) 3 ml QSHIFT PRN IV AFTER MEDS AND BLOOD DRAWS; Start 01/27/19 at 15:45 Ringer's Solution 1,000 ml @ 100 mls/hr Q10H IV Last administered on 01/30/19at 03:20; Start 01/27/19 at 15:33; Stop 01/30/19 at 14:52; Status DC Naloxone HCl (Narcan) 0.4 mg PRN Q2MIN PRN IV SEE INSTRUCTIONS; Start 01/27/19 at 15:45 Sodium Chloride 1,000 ml @ 25 mls/hr Q24H IV ; Start 01/27/19 at 15:33; Stop 01/28/19 at 15:52; Status DC Ondansetron HCl (Zofran) 4 mg PRN Q6HRS PRN IV NAUESA, 1ST CHOICE Last adm inistered on 02/01/19at 23:49; Start 01/27/19 at 15:45 Sodium Chloride 35 ml/Fentanyl Citrate 250 mcg/ Ropivacaine 10 ml/ Epidural Dosage Infused (Pha) 50 ml @ 0 mls/hr CONT PRN EPID SEE PROTOCOL TABLE Last administered on 02/01/19at 08:00; Start 01/28/19 at 08:15; Stop 02/01/19 at 10:03; Status DC Throat Lozenges (Cepacol Sore Throat Lozenge) 1 karthikeyan PRN Q2HRS PRN PO SORE THROAT Last administered on 01/28/19at 10:49; Start 01/28/19 at 09:30 Lorazepam (Ativan Inj) 0.5 mg PRN Q6HRS PRN IV ANXIETY AGITATION, 1ST CHOICE Last administered on 01/31/19at 21:13; Start 01/28/19 at 12:30; Stop 02/06/19 at 10:42; Status DC Thiamine HCl 100 mg DAILY IM Last administered on 01/30/19at 09:12; Start 01/28/19 at 13:00; Stop 01/31/19 at 11:44; Status DC Lorazepam (Ativan Inj) 2 mg PRN Q1HR PRN IV For CIWA 8-14 Last administered on 02/06/19at 03:27; Start 01/28/19 at 13:00; Stop 02/06/19 at 10:42; Status DC Lorazepam (Ativan Inj) 4 mg PRN Q1HR PRN IV For CIWA 15 or greater; Start 01/28/19 at 13:00; Stop 02/06/19 at 10:42; Status DC Haloperidol Lactate (Haldol Inj) 5 mg PRN Q4HRS PRN IVP Hallucinatns,Confusn,Delirium Last administered on 02/06/19at 21:35; Start 01/28/19 at 13:00 Diphenhydramine HCl (Benadryl) 25 mg PRN Q15MIN PRN IVP EPS symptoms 2'Haldol admin; Start 01/28/19 at 13:00 Lorazepam (Ativan Inj) 2 mg PRN Q15MIN PRN IV SEE COMMENTS Last administered on 02/05/19at 01:12; Start 01/28/19 at 13:00; Stop 02/06/19 at 10:42; Status DC Lorazepam (Ativan Inj) 4 mg PRN Q15MIN PRN IV SEE COMMENTS Last administered on 02/05/19at 02:29; Start 01/28/19 at 13:00; Stop 02/06/19 at 10:42; Status DC Albuterol/ Ipratropium (Duoneb) 3 ml RTQID NEB Last administered on 02/08/19at 06:07; Start 01/28/19 at 13:00 Non-Formulary Medication (Fluticasone/ Umeclidin/ Vilanter (Trelegy Ellipta 100-62.5-25)) 1 puff DAILY PO ; Start 01/29/19 at 09:00; Status UNV Budesonide (Pulmicort) 0.5 mg RTBID NEB Last administered on 02/08/19at 06:07; Start 01/28/19 at 20:00 Albuterol Sulfate (Ventolin Neb Soln) 2.5 mg PRN Q6HRS PRN INH SHORTNESS OF BREATH; Start 01/28/19 at 14:00 Lorazepam (Ativan) 1 mg PRN Q6HRS PRN PO ANXIETY / AGITATION Last administered on 02/04/19at 12:07; Start 01/28/19 at 14:00; Stop 02/04/19 at 12:58; Status DC Pantoprazole Sodium (Protonix) 40 mg DAILYAC PO Last administered on 02/08/19 09:40; Start 01/28/19 at 16:30 Metoprolol Tartrate (Lopressor Vial) 12.5 mg BID IVP ; Start 01/29/19 at 21:00; Stop 01/29/19 at 14:50; Status DC Metoprolol Tartrate (Lopressor) 12.5 mg BID PO Last administered on 02/08/19 09:40; Start 01/29/19 at 17:00 Amino Acids/ Glycerin/ Electrolytes 1,000 ml @ 75 mls/hr [id number] IV Last administered on 02/02/19 18:20; Start 01/30/19 at 11:30; Stop 02/02/19 at 21:59; Status DC Acetaminophen (Tylenol) 650 mg PRN Q6HRS PRN PO fever Last administered on 02/01/19 08:45; Start 01/31/19 at 01:15 Thiamine Mononitrate (Vitamin B-1) 100 mg DAILY PO Last administered on 02/08/19 09:40; Start 01/31/19 at 12:30 Heparin Sodium (Porcine) (Heparin Sodium) 5,000 unit Q12HR SQ Last administered on 02/08/19 09:40; Start 01/31/19 at 14:00 Piperacillin Sod/ Tazobactam Sod 3.375 gm/Sodium Chloride 50 ml @ 100 mls/hr Q6HRS IV Last administered on 02/04/19 05:58; Start 02/01/19 at 10:00; Stop 02/04/19 at 06:32; Status DC Linezolid/Dextrose 300 ml @ 300 mls/hr Q12HR IV Last administered on 02/03/19 21:30; Start 02/01/19 at 10:00; Stop 02/04/19 at 06:32; Status DC Micafungin Sodium 100 mg/Dextrose 100 ml @ 100 mls/hr Q24H IV Last administered on 02/08/19at 10:27; Start 02/01/19 at 11:00 Sodium Chloride 35 ml/Fentanyl Citrate 250 mcg/ Ropivacaine 10 ml/ Epidural Dosage Infused (Pha) 50 ml @ 0 mls/hr CONT PRN EPID SEE PROTOCOL TABLE Last adm inistered on 9/15/19at 11:16; Start 02/01/19 at 10:15; Stop 02/04/19 at 09:09; Status DC Fentanyl Citrate (Fentanyl 2ml Vial) 25 mcg PRN Q5MIN PRN IV MILD PAIN 1-3; Start 02/01/19 at 14:00; Stop 02/02/19 at 13:59; Status DC Fentanyl Citrate (Fentanyl 2ml Vial) 50 mcg PRN Q5MIN PRN IV MODERATE TO SEVERE PAIN Last administered on 02/02/19at 09:09; Start 02/01/19 at 14:00; Stop at 13:59; Status DC Hydromorphone HCl (Dilaudid) 1 mg PRN Q2HR PRN IV PAIN Last administered on 02/06/19at 09:11; Start 02/01/19 at 16:30; Stop 02/06/19 at 10:42; Status DC Ketorolac Tromethamine (Toradol 30mg Vial) 30 mg 1X ONCE IV Last administered on 02/01/19at 16:43; Start 02/01/19 at 16:30; Stop 02/01/19 at 16:31; Status DC Sodium Chloride 500 ml @ 500 mls/hr 1X ONCE IV Last administered on 02/02/19at 05:37; Start 02/02/19 at 05:30; Stop 02/02/19 at 06:29; Status DC Hydromorphone HCl 30 ml @ 0 mls/hr CONT PRN PRN IV PER PROTOCOL Last administered on 02/02/19at 10:32; Start 02/02/19 at 09:00; Stop 02/04/19 at 09:09; Status DC Info (Tpn Per Pharmacy) 1 each PRN DAILY PRN MC SEE COMMENTS Last administered on 02/07/19at 13:37; Start 02/02/19 at 10:00 Sodium Phosphate 20 mmol/Dextrose 256.6667 ml @ 64.167 m... 1X ONCE IV Last administered on 02/02/19at 14:38; Start 02/02/19 at 11:00; Stop 02/02/19 at 14:59; Status DC Furosemide (Lasix) 20 mg 1X ONCE IVP Last administered on 02/02/19at 16:16; Start 02/02/19 at 16:00; Stop 02/02/19 at 16:01; Status DC Lidocaine/Sodium Bicarbonate (Buffered Lidocaine 1%) 3 ml 1X ONCE INJ ; Start 02/02/19 at 14:00; Stop 02/02/19 at 14:05; Status DC Sodium Chloride 80 meq/Potassium Chloride 40 meq/ Sodium Phosphate 13.6 mmol/ Magnesium Sulfate 10 meq/Calcium Gluconate 10 meq/ Multivitamins 10 ml/Chromium/ Copper/Manganese/ Seleni/Zn 1 ml/ Total Parenteral Nutrition/Amino Acids/Dextrose/ Fat Emulsion Intravenous 1,512 ml @ 63 mls/hr TPN CONT IV Last administered on 02/02/19at 21:50; Start 02/02/19 at 22:00; Stop 02/03/19 at 21:59; Status DC Potassium Phosphate 15 mmol/ Sodium Chloride 255 ml @ 127.5 mls/ hr 1X ONCE IV Last administered on 02/03/19at 11:35; Start 02/03/19 at 11:00; Stop 02/03/19 at 12:59; Status DC Potassium Chloride (Klor-Con) 40 meq 1X ONCE PO Last administered on 02/03/19at 21:30; Start 02/03/19 at 11:30; Stop 02/03/19 at 11:31; Status DC Sodium Chloride 120 meq/Potassium Chloride 50 meq/ Sodium Phosphate 20.4 mmol/ Magnesium Sulfate 10 meq/Calcium Gluconate 10 meq/ Multivitamins 10 ml/Chromium/ Copper/Manganese/ Seleni/Zn 1 ml/ Total Parenteral Nutrition/Amino Ac ids/Dextrose/ Fat Emulsion Intravenous 1,512 ml @ 63 mls/hr TPN CONT IV Last administered on 02/03/19at 21:30; Start 02/03/19 at 22:00; Stop 02/04/19 at 21:59; Status DC Potassium Chloride (Klor-Con) 40 meq 1X ONCE PO Last administered on 02/03/19at 21:31; Start 02/03/19 at 21:00; Stop 02/03/19 at 21:01; Status DC Meropenem 500 mg/ Sodium Chloride 50 ml @ 100 mls/hr Q6HRS IV Last administered on 02/08/19at 05:55; Start 02/04/19 at 07:00 Oxycodone/ Acetaminophen (Percocet 5/325) 1 tab PRN Q4HRS PRN PO MODERATE TO SEVERE PAIN Last administered on 02/06/19at 01:34; Start 02/04/19 at 09:15 Docusate Sodium (Colace) 100 mg DAILY PO Last administered on 02/05/19at 09:13; Start 02/04/19 at 10:00 Iohexol (Omnipaque 350 Mg/ml) 75 ml 1X ONCE IV Last administered on 02/04/19at 12:30; Start 02/04/19 at 10:15; Stop 02/04/19 at 10:16; Status DC Info (CONTRAST GIVEN -- Rx MONITORING) 1 each PRN DAILY PRN MC SEE COMMENTS; Start 02/04/19 at 10:15; Stop 02/06/19 at 10:14; Status DC Lorazepam (Ativan) 1 mg PRN Q6HRS PRN PO ANXIETY / AGITATION Last administered on 02/04/19at 18:17; Start 02/04/19 at 13:00; Stop 02/06/19 at 10:42; Status DC Sodium Chloride 120 meq/Sodium Phosphate 24 mmol/ Potassium Chloride 50 meq/ Magnesium Sulfate 13 meq/Calcium Gluconate 10 meq/ Multivitamins 10 ml/Chromium/ Copper/Manganese/ Seleni/Zn 1 ml/ Total Parenteral Nutrition/Amino Acids/Dextrose/ Fat Emulsion Intravenous 1,512 ml @ 63 mls/hr TPN CONT IV Last administered on 02/04/19at 22:20; Start 02/04/19 at 22:00; Stop 02/05/19 at 21:59; Status DC Sodium Phosphate 15 mmol/Dextrose 255 ml @ 63.75 mls/ hr 1X ONCE IV Last administered on 02/04/19at 14:23; Start 02/04/19 at 14:00; Stop 02/04/19 at 17:59; Status DC Lorazepam (Ativan Inj) 2 mg PRN Q4HRS PRN IV ANXIETY/AGITATION (USE 2ND) Last administered on 02/04/19at 20:46; Start 02/04/19 at 20:15; Stop 02/06/19 at 10:42; Status DC Sodium Phosphate 20 mmol/Dextrose 256.6667 ml @ 64.167 m... 1X ONCE IV Last administered on 02/05/19at 12:56; Start 02/05/19 at 12:00; Stop 02/05/19 at 15:59 ; Status DC Sodium Chloride 120 meq/Sodium Phosphate 27 mmol/ Potassium Chloride 50 meq/ Magnesium Sulfate 13 meq/Calcium Gluconate 10 meq/ Multivitamins 10 ml/Chromium/ Copper/Manganese/ Seleni/Zn 1 ml/ Total Parenteral Nutrition/Amino Acids/Dextrose/ Fat Emulsion Intravenous 1,512 ml @ 63 mls/hr TPN CONT IV Last administered on 02/05/19at 23:33; Start 02/05/19 at 22:00; Stop 02/06/19 at 21:59; Status DC Lorazepam (Ativan Inj) 0.25 mg PRN Q6HRS PRN IV ANXIETY AGITATION, 1ST CHOICE Last administered on 02/06/19at 21:11; Start 02/06/19 at 10:45 Iohexol (Omnipaque 300 Mg/ml) 75 ml 1X ONCE IV Last administered on 02/06/19at 12:38; Start 02/06/19 at 12:00; Stop 02/06/19 at 12:01; Status DC Info (CONTRAST GIVEN -- Rx MONITORING) 1 each PRN DAILY PRN MC SEE COMMENTS; Start 02/06/19 at 11:45; Stop 02/08/19 at 11:44 Sodium Chloride 100 meq/Sodium Phosphate 20 mmol/ Potassium Chloride 50 meq/ Magnesium Sulfate 13 meq/Calcium Gluconate 10 meq/ Multivitamins 10 ml/Chromium/ Copper/Manganese/ Seleni/Zn 1 ml/ Total Parenteral Nutrition/Amino Acids/Dextrose/ Fat Emulsion Intravenous 1,512 ml @ 63 mls/hr TPN CONT IV Last administered on 02/06/19at 22:05; Start 02/06/19 at 22:00; Stop 02/07/19 at 21:59; Status DC Metronidazole 100 ml @ 100 mls/hr Q6H IV Last administered on 02/08/19at 03:57; Start 02/06/19 at 16:00 Hydromorphone HCl (Dilaudid) 1 mg PRN Q2HR PRN IV PAIN Last administered on 02/08/19at 09:40; Start 02/07/19 at 00:00 Metoprolol Tartrate (Lopressor Vial) 5 mg PRN Q6HRS PRN IVP hypertension; Start 02/07/19 at 00:00 Sodium Chloride 50 meq/Sodium Phosphate 20 mmol/ Potassium Chloride 50 meq/ Magnesium Sulfate 13 meq/Calcium Gluconate 10 meq/ Multivitamins 10 ml/Chromium/ Copper/Manganese/ Seleni/Zn 1 ml/ Total Parenteral Nutrition/Amino Acids/Dextrose/ Fat Emulsion Intravenous 1,512 ml @ 63 mls/hr TPN CONT IV Last administered on 02/07/19at 23:14; Start 02/07/19 at 22:00; Stop 02/08/19 at 21:59 Vancomycin HCl (Vancomycin Oral Solution) 125 mg [id number] PO Last administered on 02/08/19at 09:40; Start 02/08/19 at 09:00 Active Scripts Active Lactulose 20 Gm/30 Ml Solution 20 Gm PO PRN TID PRN 30 Days Zofran (Ondansetron Hcl) 4 Mg Tablet 1 Tab PO Q6HRS 30 Days Hydrocodone-Apap 5-325 (Hydrocodone Bit/Acetaminophen) 1 Tab Tablet 1 Tab PO PRN Q6HRS PRN 6 Days Pantoprazole Sodium (Pantoprazole Sodium) 40 Mg Tablet.dr 40 Mg PO DAILYAC 30 Days Lorazepam 1 Mg Tablet 1 Mg PO PRN Q6HRS PRN 6 Days Reported Proair Hfa Inhaler (Albuterol Sulfate) 8.5 Gm Hfa.aer.ad 1 Puff INH PRN Q6HRS PRN Trelegy Ellipta 100-62.5-25 (Fluticasone/Umeclidin/Vilanter) 1 Each Blst.w.dev 1 Puff PO DAILY Vitals/I & O Vital Sign - Last 24 Hours 02/07/19 02/07/19 02/07/19 02/07/19 10:55 11:59 15:27 15:59 Temp 98.3 98.3 98.3 98.3 Pulse 121 113 Resp 18 16 B/P (MAP) 127/64 (85) 112/66 (81) Pulse Ox 93 94 94 96 O2 Delivery Room Air Room Air Room Air Room Air O2 Flow Rate 94.0 94.0 02/07/19 02/07/19 02/07/19 02/07/19 16:27 16:27 18:29 18:29 Pulse Ox 94 O2 Delivery Room Air Room Air Room Air Room Air O2 Flow Rate 94.0 02/07/19 02/07/19 02/07/19 02/08/19 19:21 22:59 23:14 03:04 Temp 98.3 97.3 98.9 98.3 97.3 98.9 Pulse 121 121 135 Resp 11 11 10 B/P (MAP) 116/70 (85) 136/88 (104) 136/88 133/79 (97) Pulse Ox 93 95 93 O2 Delivery Room Air Room Air Room Air 02/08/19 02/08/19 02/08/19 02/08/19 06:08 07:00 09:40 09:40 Temp 98.6 98.6 Pulse 129 129 Resp 10 B/P (MAP) 126/82 (97) 126/82 Pulse Ox 94 O2 Delivery Room Air Room Air Room Air O2 Flow Rate 95.0 02/08/19 10:15 O2 Delivery Room Air Intake and Output 02/07/19 02/07/19 02/08/19 15:00 23:00 07:00 Intake Total 0 ml 1475 ml Output Total 400 ml 520 ml Balance 0 ml 1075 ml -520 ml WILBUR CALHOUN MD Feb 08, 2019 10:42
[2019-02-08 11:00] VITALS: BP 127/79
--- NOTE | 2019-02-08 12:14 | PDOC ---
Infectious Disease Note Subjective Subjective No fevers , soft stool ROS ROS no n/v/d/ Vital Sign Vital Signs Vital Signs Date Time Temp Pulse Resp B/P (MAP) Pulse Ox O2 Delivery O2 Flow Rate FiO2 02/08/19 11:08 Room Air 02/08/19 11:00 98.2 109 14 127/79 (95) 95.0 98.2 02/08/19 06:08 94 Physical Exam PHYSICAL EXAM GENERAL: Resting quietly, mittens on ,, awake, more interactive HEENT: Oral cavity dry LUNGS: Clear anteriorly. HEART: S1, S2. No gallops or murmurs. ABDOMEN: Soft, mildly distended. Abd wound dressed. GJ tube intact : Moreno (02/06) EXTREMITIES: No edema, no cyanosis. Right foot bandaged DERMATOLOGIC: Warm, dry. No generalized rash. RIJ - clean Labs Lab Laboratory Tests Test 02/07/19 17:42 02/07/19 23:56 02/08/19 05:48 02/08/19 06:15 Glucose (Fingerstick) 164 mg/dL (70-99) 142 mg/dL (70-99) 162 mg/dL (70-99) Sodium Level 145 mmol/L (136-145) Potassium Level 4.8 mmol/L (3.5-5.1) Chloride Level 115 mmol/L (98-107) Carbon Dioxide Level 26 mmol/L (21-32) Anion Gap 4 (6-14) Blood Urea Nitrogen 24 mg/dL (7-20) Creatinine 0.6 mg/dL (0.6-1.0) Estimated GFR (Cockcroft-Gault) 102.7 Glucose Level 158 mg/dL (70-99) Calcium Level 7.8 mg/dL (8.5-10.1) Phosphorus Level 3.1 mg/dL (2.6-4.7) Magnesium Level 2.1 mg/dL (1.8-2.4) Micro Microbiology 02/01/19 Urine Culture - Final, Complete 02/01/19 Urine Culture Result 1 ([facility]) - Final, Complete 02/01/19 Blood Culture - Final, Complete NO GROWTH AFTER 5 DAYS Objective Assessment Fever - resolved UA - clean. Leukocytosis - better Status post Whipple's 01/27 Pancreatic CA Encephalopathy - ? metabolic History of hepatitis C. History of bilateral mastectomy. Chronic obstructive pulmonary disease. Peripheral neuropathy. ETOH abuse and h/o anxiety. Urinary retention s/p Moreno placement, 02/06 Plan Plan of Care cont po joseo, d/c rest of the antibiotic closely monitor, may have to reinitiate if s/s of infection d/w daughter at bedside D/w nursing TRINI GAXIOLA MD Feb 08, 2019 12:14
[2019-02-08] MEDS: TPN PER PHARMACY MC PRN (12:37)
[2019-02-08] MEDS: oxyCODONE/APAP 5/325 1 TAB TABLET PO PRN ×2 (12:45→18:28)
[2019-02-08 15:00] VITALS: BP 136/84
[2019-02-08 19:00] VITALS: BP 150/100
[2019-02-08] MEDS ORDERED: AMINO ACID IV SCH ×10 (22:00)
[2019-02-08] MEDS ORDERED: [UNRECOGNIZED DRUG - OTHER] IV SCH ×10 (22:00)
[2019-02-08] MEDS ORDERED: DEXTROSE 70% IV SCH ×10 (22:00)
[2019-02-08] MEDS ORDERED: TOTAL PARENTERAL NUTRITION IV SCH ×10 (22:00)
[2019-02-08 23:00] VITALS: BP 140/72
[2019-02-09] MEDS: HYDROmorphone 2 MG/ML VIAL IV PRN ×8 (00:27→20:20)
[2019-02-09 03:00] VITALS: BP 144/80
[2019-02-09 06:10] LABS: CALCIUM 7.8 mg/dL (8.5-10.1); CREATININE 0.6 mg/dL (0.6-1.0); GFR 102.7; POTASSIUM 4.9 mmol/L (3.5-5.1)
[2019-02-09 07:00] VITALS: BP 117/87
[2019-02-09] MEDS: PANTOPRAZOLE 40 MG TABLET.DR. PO SCH (07:30)
--- NOTE | 2019-02-09 08:10 | PDOC ---
SURGICAL PROGRESS NOTE Subjective Pt getting up with nursing to go to stool, sleepy changing to anxious. Orients to daughter with prompting. Vital Signs Vital Signs Date Time Temp Pulse Resp B/P (MAP) Pulse Ox O2 Delivery O2 Flow Rate FiO2 02/09/19 07:00 98.3 118 20 117/87 (97) 96 Room Air 98.3 02/08/19 12:55 95.0 I&O Intake and Output 02/09/19 07:00 Intake Total 1660 ml Output Total 3301 ml Balance -1641 ml Intake Oral 1660 ml Output Urine Total 600 ml Stool Total 1 ml Gastric Drainage Total 225 ml Drainage Total 2005 ml Other 470 ml # Voids 2 # Bowel Movements 2 PATIENT HAS A LEVI: Yes (urinary retention) General: Alert, No acute distress Abdomen: Soft, No tenderness, Other (SEA sites with clear ascites ) Labs Laboratory Tests Test 02/07/19 17:42 02/07/19 23:56 02/08/19 05:48 02/08/19 06:15 Glucose (Fingerstick) 164 mg/dL (70-99) 142 mg/dL (70-99) 162 mg/dL (70-99) Sodium Level 145 mmol/L (136-145) Potassium Level 4.8 mmol/L (3.5-5.1) Chloride Level 115 mmol/L (98-107) Carbon Dioxide Level 26 mmol/L (21-32) Anion Gap 4 (6-14) Blood Urea Nitrogen 24 mg/dL (7-20) Creatinine 0.6 mg/dL (0.6-1.0) Estimated GFR (Cockcroft-Gault) 102.7 Glucose Level 158 mg/dL (70-99) Calcium Level 7.8 mg/dL (8.5-10.1) Phosphorus Level 3.1 mg/dL (2.6-4.7) Magnesium Level 2.1 mg/dL (1.8-2.4) Test 02/08/19 13:03 02/09/19 04:58 Glucose (Fingerstick) 137 mg/dL (70-99) Sodium Level 137 mmol/L (136-145) Potassium Level 4.9 mmol/L (3.5-5.1) Chloride Level 108 mmol/L (98-107) Carbon Dioxide Level 25 mmol/L (21-32) Anion Gap 4 (6-14) Blood Urea Nitrogen 23 mg/dL (7-20) Creatinine 0.6 mg/dL (0.6-1.0) Estimated GFR (Cockcroft-Gault) 102.7 Glucose Level 139 mg/dL (70-99) Calcium Level 7.8 mg/dL (8.5-10.1) Laboratory Tests Test 02/08/19 13:03 02/09/19 04:58 Glucose (Fingerstick) 137 mg/dL (70-99) Sodium Level 137 mmol/L (136-145) Potassium Level 4.9 mmol/L (3.5-5.1) Chloride Level 108 mmol/L (98-107) Carbon Dioxide Level 25 mmol/L (21-32) Anion Gap 4 (6-14) Blood Urea Nitrogen 23 mg/dL (7-20) Creatinine 0.6 mg/dL (0.6-1.0) Estimated GFR (Cockcroft-Gault) 102.7 Glucose Level 139 mg/dL (70-99) Calcium Level 7.8 mg/dL (8.5-10.1) Problem List s/p whipple gradual slow improvement. d/w daughter, suspect most issues related to cirrhosis of liver CT with ascites, but no other obvious issues. Appreciate ID appropriate empiric treatment of C diff, but is positive. Appreciate neurology w/u. Will defer anxiety meds to hospitalists. HÉCTOR RANDALL MD Feb 09, 2019 08:10
[2019-02-09] MEDS: IPRATRPIUM/ALBUTEROL 0.5/2.5MG 3 ML NEBU. NEB SCH ×4 (08:11→19:54)
[2019-02-09] MEDS: BUDESONIDE 0.5 MG/2 ML NEBU. NEB SCH ×2 (08:11→19:54)
--- NOTE | 2019-02-09 08:55 | PDOC ---
PROGRESS NOTES Subjective Subjective HPI - f/u of T2, N1 pancreatic cancer ROS - more oriented Objective Objective Vital Signs Date Time Temp Pulse Resp B/P (MAP) Pulse Ox O2 Delivery O2 Flow Rate FiO2 02/09/19 08:27 96 Room Air 95.0 02/09/19 07:00 98.3 118 20 117/87 (97) 98.3 Intake and Output 02/09/19 06:59 Intake Total 1660 ml Output Total 3301 ml Balance -1641 ml Intake Oral 1660 ml Output Urine Total 600 ml Stool Total 1 ml Gastric Drainage Total 225 ml Drainage Total 2005 ml Other 470 ml # Voids 2 # Bowel Movements 2 Physical Exam General: No acute distress Neck: No JVD Assessment Assessment IMPRESSION AND PLAN: 1. T2, N1 pancreatic cancer. Liver biopsy is still pending. She underwent Whipple surgery on 01/27/2019. I reviewed the case at multidisciplinary tumor conference. Plan to continue postoperative care. Await biopsy of the liver. If it is negative, I will plan for adjuvant chemotherapy with Gemzar and Xeloda after she completely recovers. I will plan for a followup visit at my office in 3 to 4 weeks. I d/w RN I d/w pt's dtr 2. Leukocytosis, reactive. Infectious Disease has been consulted. Fever has improved. She did have a CT scan on 02/01/2019 which revealed gas and fluid collection at the gallbladder fossa. There is also evidence of hepatic cirrhosis. Continue supportive care management. WBC 23. 3. Cirrhosis of the liver. Continue supportive care. Comment Review of Relevant I have reviewed the following items dante (where applicable) has been applied. Labs Laboratory Tests Test 02/07/19 17:42 02/07/19 23:56 02/08/19 05:48 02/08/19 06:15 Glucose (Fingerstick) 164 mg/dL (70-99) 142 mg/dL (70-99) 162 mg/dL (70-99) Sodium Level 145 mmol/L (136-145) Potassium Level 4.8 mmol/L (3.5-5.1) Chloride Level 115 mmol/L (98-107) Carbon Dioxide Level 26 mmol/L (21-32) Anion Gap 4 (6-14) Blood Urea Nitrogen 24 mg/dL (7-20) Creatinine 0.6 mg/dL (0.6-1.0) Estimated GFR (Cockcroft-Gault) 102.7 Glucose Level 158 mg/dL (70-99) Calcium Level 7.8 mg/dL (8.5-10.1) Phosphorus Level 3.1 mg/dL (2.6-4.7) Magnesium Level 2.1 mg/dL (1.8-2.4) Test 02/08/19 13:03 02/09/19 04:58 Glucose (Fingerstick) 137 mg/dL (70-99) Sodium Level 137 mmol/L (136-145) Potassium Level 4.9 mmol/L (3.5-5.1) Chloride Level 108 mmol/L (98-107) Carbon Dioxide Level 25 mmol/L (21-32) Anion Gap 4 (6-14) Blood Urea Nitrogen 23 mg/dL (7-20) Creatinine 0.6 mg/dL (0.6-1.0) Estimated GFR (Cockcroft-Gault) 102.7 Glucose Level 139 mg/dL (70-99) Calcium Level 7.8 mg/dL (8.5-10.1) Laboratory Tests Test 02/08/19 13:03 02/09/19 04:58 Glucose (Fingerstick) 137 mg/dL (70-99) Sodium Level 137 mmol/L (136-145) Potassium Level 4.9 mmol/L (3.5-5.1) Chloride Level 108 mmol/L (98-107) Carbon Dioxide Level 25 mmol/L (21-32) Anion Gap 4 (6-14) Blood Urea Nitrogen 23 mg/dL (7-20) Creatinine 0.6 mg/dL (0.6-1.0) Estimated GFR (Cockcroft-Gault) 102.7 Glucose Level 139 mg/dL (70-99) Calcium Level 7.8 mg/dL (8.5-10.1) Microbiology 02/01/19 Urine Culture - Final, Complete 02/01/19 Urine Culture Result 1 (WINSTON) - Final, Complete 02/01/19 Blood Culture - Final, Complete NO GROWTH AFTER 5 DAYS Medications Current Medications Ondansetron HCl (Zofran) 4 mg PRN Q6HRS PRN IV NAUSEA/VOMITING; Start 01/27/19 at 07:00; Stop 01/28/19 at 06:59; Status DC Fentanyl Citrate (Fentanyl 2ml Vial) 25 mcg PRN Q5MIN PRN IV MILD PAIN 1-3; Start 01/27/19 at 07:00; Stop 01/28/19 at 06:59; Status DC Fentanyl Citrate (Fentanyl 2ml Vial) 50 mcg PRN Q5MIN PRN IV MODERATE TO SEVERE PAIN; Start 01/27/19 at 07:00; Stop 01/28/19 at 06:59; Status DC Morphine Sulfate (Morphine Sulfate) 1 mg PRN Q10MIN PRN IV SEVERE PAIN 7-10; Start 01/27/19 at 07:00; Stop 01/28/19 at 06:59; Status DC Ringer's Solution 1,000 ml @ 30 mls/hr Q24H IV Last administered on 01/27/19at 08:15; Start 01/27/19 at 07:00; Stop 01/27/19 at 18:59; Status DC Hydromorphone HCl (Dilaudid) 0.5 mg PRN Q10MIN PRN IV SEV PAIN, Second choice; Start 01/27/19 at 07:00; Stop 01/28/19 at 06:59; Status DC Prochlorperazine Edisylate (Compazine) 5 mg PACU PRN PRN IV NAUSEA, MRX1 Last administered on 01/28/19at 03:33; Start 01/27/19 at 07:00; Stop 01/28/19 at 06:59; Status DC Cefoxitin Sodium (Mefoxin) 2 gm 1X PREOP PRN IVP SURGERY Last administered on 01/27/19at 12:18; Start 01/27/19 at 06:00; Stop 01/28/19 at 10:13; Status DC Sevoflurane (Ultane) 90 ml STK-MED ONCE IH ; Start 01/27/19 at 09:11; Stop 01/27/19 at 09:11; Status DC Rocuronium [place] (Zemuron) 50 mg STK-MED ONCE .ROUTE ; Start 01/27/19 at 09:11; Stop 01/27/19 at 09:11; Status DC Fentanyl Citrate (Fentanyl 2ml Vial) 100 mcg STK-MED ONCE .ROUTE ; Start 01/27/19 at 09:11; Stop 01/27/19 at 09:11; Status DC Neostigmine Methylsulfate (Neostigmine Methylsulfate) 5 mg STK-MED ONCE .ROUTE ; Start 01/27/19 at 09:11; Stop 01/27/19 at 09:11; Status DC Midazolam HCl (Versed) 2 mg STK-MED ONCE .ROUTE ; Start 01/27/19 at 09:11; Stop 01/27/19 at 09:11; Status DC Glycopyrrolate (Robinul) 1 mg STK-MED ONCE .ROUTE ; Start 01/27/19 at 09:11; Stop 01/27/19 at 09:11; Status DC Phenylephrine HCl (Bret-Synephrine Inj) 10 mg STK-MED ONCE .ROUTE ; Start 01/27/19 at 09:11; Stop 01/27/19 at 09:12; Status DC Dexamethasone Sodium Phosphate (Decadron) 4 mg STK-MED ONCE .ROUTE ; Start 01/27/19 at 09:11; Stop 01/27/19 at 09:12; Status DC Ondansetron HCl (Zofran) 4 mg STK-MED ONCE .ROUTE ; Start 01/27/19 at 09:12; Stop 01/27/19 at 09:12; Status DC Lidocaine HCl (Lidocaine Pf 2% Vial) 5 ml STK-MED ONCE .ROUTE ; Start 01/27/19 at 09:12; Stop 01/27/19 at 09:12; Status DC Propofol 20 ml @ As Directed STK-MED ONCE IV ; Start 01/27/19 at 09:12; Stop 01/27/19 at 09:12; Status DC Sodium Chloride (Normal Saline Flush) 3 ml QSHIFT PRN IV AFTER MEDS AND BLOOD DRAWS; Start 01/27/19 at 09:30; Stop 02/03/19 at 09:09; Status DC Ibuprofen (Motrin) 400 mg PRN Q6HRS PRN PO MILD PAIN 1-3; Start 01/27/19 at 09:30 Naloxone HCl (Narcan) 0.4 mg PRN Q2MIN PRN IV SEE INSTRUCTIONS; Start 01/27/19 at 09:30; Stop 01/31/19 at 09:15; Status DC Sodium Chloride 1,000 ml @ 25 mls/hr Q24H IV ; Start 01/27/19 at 09:28; Stop 01/30/19 at 14:52; Status DC Ondansetron HCl (Zofran) 4 mg PRN Q6HRS PRN IV Nausea, 2nd Choice; Start 01/27/19 at 09:30; Status Cancel Epinephrine HCl (EPINEPHrine SYRINGE) 1 mg STK-MED ONCE .ROUTE ; Start 01/27/19 at 10:15; Stop 01/27/19 at 10:16; Status DC Lidocaine HCl (Lidocaine Pf 2% Vial) 5 ml STK-MED ONCE .ROUTE ; Start 01/27/19 at 10:15; Stop 01/27/19 at 10:16; Status DC Ropivacaine (Naropin 0.5%) 20 ml STK-MED ONCE .ROUTE ; Start 01/27/19 at 10:17; Stop 01/27/19 at 10:18; Status DC Cellulose (Surgicel Hemostat 4x8) 1 each STK-MED ONCE .ROUTE Last administered on 01/27/19at 11:25; Start 01/27/19 at 11:24; Stop 01/27/19 at 11:25; Status DC Cellulose (Surgicel Hemostat 4x8) 1 each STK-MED ONCE .ROUTE Last administered on 01/27/19at 11:39; Start 01/27/19 at 11:38; Stop 01/27/19 at 11:38; Status DC Rocuronium [place] (Zemuron) 50 mg STK-MED ONCE .ROUTE ; Start 01/27/19 at 12:09; Stop 01/27/19 at 12:09; Status DC Cefoxitin Sodium (Mefoxin) 2 gm 1X ONCE IVP Last administered on 01/27/19at 12:33; Start 01/27/19 at 12:30; Stop 01/27/19 at 12:31; Status DC Phenylephrine HCl (Bret-Synephrine Inj) 10 mg STK-MED ONCE .ROUTE ; Start 01/27/19 at 14:49; Stop 01/27/19 at 14:49; Status DC Sodium Chloride 35 ml/Fentanyl Citrate 250 mcg/ Ropivacaine 10 ml/ Epidural Dosage Infused (Pha) 50 ml @ 0 mls/hr CONT EPID ; Start 01/27/19 at 15:00; Status UNV Sodium Chloride 35 ml/Fentanyl Citrate 250 mcg/ Ropivacaine 10 ml/ Epidural Dosage Infused (Pha) 50 ml @ 0 mls/hr CONT PRN EPID SEE PROTOCOL TABLE Last administered on 01/28/19at 05:00; Start 01/27/19 at 15:00; Stop 01/28/19 at 08:11; Status DC Cefoxitin Sodium (Mefoxin) 2 gm 1X PREOP PRN IVP SURGERY Last administered on 01/27/19at 16:47; Start 01/27/19 at 15:15; Stop 01/28/19 at 10:13; Status DC Famotidine (Pepcid Vial) 20 mg BID IVP Last administered on 02/08/19at 22:03; Start 01/27/19 at 21:00 Enoxaparin Sodium (Lovenox 40mg Syringe) 40 mg Q24H SQ Last administered on 01/29/19at 12:24; Start 01/28/19 at 09:00; Stop 01/29/19 at 17:14; Status DC Sodium Chloride (Normal Saline Flush) 3 ml QSHIFT PRN IV AFTER MEDS AND BLOOD DRAWS; Start 01/27/19 at 15:45 Ringer's Solution 1,000 ml @ 100 mls/hr Q10H IV Last administered on 01/30/19at 03:20; Start 01/27/19 at 15:33; Stop 01/30/19 at 14:52; Status DC Naloxone HCl (Narcan) 0.4 mg PRN Q2MIN PRN IV SEE INSTRUCTIONS; Start 01/27/19 at 15:45 Sodium Chloride 1,000 ml @ 25 mls/hr Q24H IV ; Start 01/27/19 at 15:33; Stop 01/28/19 at 15:52; Status DC Ondansetron HCl (Zofran) 4 mg PRN Q6HRS PRN IV NAUESA, 1ST CHOICE Last administered on 02/01/19at 23:49; Start 01/27/19 at 15:45 Sodium Chloride 35 ml/Fentanyl Citrate 250 mcg/ Ropivacaine 10 ml/ Epidural Dosage Infused (Pha) 50 ml @ 0 mls/hr CONT PRN EPID SEE PROTOCOL TABLE Last administered on 02/01/19at 08:00; Start 01/28/19 at 08:15; Stop 02/01/19 at 10:03; Status DC Throat Lozenges (Cepacol Sore Throat Lozenge) 1 karthikeyan PRN Q2HRS PRN PO SORE THROAT Last administered on 01/28/19at 10:49; Start 01/28/19 at 09:30 Lorazepam (Ativan Inj) 0.5 mg PRN Q6HRS PRN IV ANXIETY AGITATION, 1ST CHOICE Last administered on 01/31/19at 21:13; Start 01/28/19 at 12:30; Stop 02/06/19 at 10:42; Status DC Thiamine HCl 100 mg DAILY IM Last administered on 01/30/19at 09:12; Start 01/28/19 at 13:00; Stop 01/31/19 at 11:44; Status DC Lorazepam (Ativan Inj) 2 mg PRN Q1HR PRN IV For CIWA 8-14 Last administered on 02/06/19at 03:27; Start 01/28/19 at 13:00; Stop 02/06/19 at 10:42; Status DC Lorazepam (Ativan Inj) 4 mg PRN Q1HR PRN IV For CIWA 15 or greater; Start 01/28/19 at 13:00; Stop 02/06/19 at 10:42; Status DC Haloperidol Lactate (Haldol Inj) 5 mg PRN Q4HRS PRN IVP Hallucina tns,Confusn,Delirium Last administered on 02/06/19at 21:35; Start 01/28/19 at 13:00 Diphenhydramine HCl (Benadryl) 25 mg PRN Q15MIN PRN IVP EPS symptoms 2'Haldol admin; Start 01/28/19 at 13:00 Lorazepam (Ativan Inj) 2 mg PRN Q15MIN PRN IV SEE COMMENTS Last administered on 02/05/19at 01:12; Start 01/28/19 at 13:00; Stop 02/06/19 at 10:42; Status DC Lorazepam (Ativan Inj) 4 mg PRN Q15MIN PRN IV SEE COMMENTS Last administered on 02/05/19at 02:29; Start 01/28/19 at 13:00; Stop 02/06/19 at 10:42; Status DC Albuterol/ Ipratropium (Duoneb) 3 ml RTQID NEB Last administered on 02/09/19at 08:11; Start 01/28/19 at 13:00 Non-Formulary Medication (Fluticasone/ Umeclidin/ Vilanter (Trelegy Ellipta 100-62.5-25)) 1 puff DAILY PO ; Start 01/29/19 at 09:00; Status UNV Budesonide (Pulmicort) 0.5 mg RTBID NEB Last administered on 02/09/19at 08:11; Start 01/28/19 at 20:00 Albuterol Sulfate (Ventolin Neb Soln) 2.5 mg PRN Q6HRS PRN INH SHORTNESS OF BREATH; Start 01/28/19 at 14:00 Lorazepam (Ativan) 1 mg PRN Q6HRS PRN PO ANXIETY / AGITATION Last administered on 02/04/19at 12:07; Start 01/28/19 at 14:00; Stop 02/04/19 at 12:58; Status DC Pantoprazole Sodium (Protonix) 40 mg DAILYAC PO Last administered on 02/08/19at 09:40; Start 01/28/19 at 16:30 Metoprolol Tartrate (Lopressor Vial) 12.5 mg BID IVP ; Start 01/29/19 at 21:00; Stop 01/29/19 at 14:50; Status DC Metoprolol Tartrate (Lopressor) 12.5 mg BID PO Last administered on 02/08/19at 22:03; Start 01/29/19 at 17:00 Amino Acids/ Glycerin/ Electrolytes 1,000 ml @ 75 mls/hr [id number] IV Last administered on 02/02/19 18:20; Start 01/30/19 at 11:30; Stop 02/02/19 at 21:59; Status DC Acetaminophen (Tylenol) 650 mg PRN Q6HRS PRN PO fever Last administered on 02/01/19at 08:45; Start 01/31/19 at 01:15 Thiamine Mononitrate (Vitamin B-1) 100 mg DAILY PO Last administered on 02/08/19 09:40; Start 01/31/19 at 12:30 Heparin Sodium (Porcine) (Heparin Sodium) 5,000 unit Q12HR SQ Last administered on 02/08/19at 23:52; Start 01/31/19 at 14:00 Piperacillin Sod/ Tazobactam Sod 3.375 gm/Sodium Chloride 50 ml @ 100 mls/hr Q6HRS IV Last administered on 02/04/19at 05:58; Start 02/01/19 at 10:00; Stop 02/04/19 at 06:32; Status DC Linezolid/Dextrose 300 ml @ 300 mls/hr Q12HR IV Last administered on 02/03/19at 21:30; Start 02/01/19 at 10:00; Stop 02/04/19 at 06:32; Status DC Micafungin Sodium 100 mg/Dextrose 100 ml @ 100 mls/hr Q24H IV Last administered on 02/08/19at 10:27; Start 02/01/19 at 11:00; Stop 02/08/19 at 12:04; Status DC Sodium Chloride 35 ml/Fentanyl Citrate 250 mcg/ Ropivacaine 10 ml/ Epidural Dosage Infused (Pha) 50 ml @ 0 mls/hr CONT PRN EPID SEE PROTOCOL TABLE Last administered on 02/01/19at 11:16; Start 02/01/19 at 10:15; Stop 02/04/19 at 09:09; Status DC Fentanyl Citrate (Fentanyl 2ml Vial) 25 mcg PRN Q5MIN PRN IV MILD PAIN 1-3; Start 02/01/19 at 14:00; Stop 02/02/19 at 13:59; Status DC Fentanyl Citrate (Fentanyl 2ml Vial) 50 mcg PRN Q5MIN PRN IV MODERATE TO SEVERE PAIN Last administered on 02/02/19at 09:09; Start 02/01/19 at 14:00; Stop 02/02/19 at 13:59; Status DC Hydromorphone HCl (Dilaudid) 1 mg PRN Q2HR PRN IV PAIN Last administered on 02/06/19at 09:11; Start 02/01/19 at 16:30; Stop 02/06/19 at 10:42; Status DC Ketorolac Tromethamine (Toradol 30mg Vial) 30 mg 1X ONCE IV Last administered on 02/01/19at 16:43; Start 02/01/19 at 16:30; Stop 02/01/19 at 16:31; Status DC Sodium Chloride 500 ml @ 500 mls/hr 1X ONCE IV Last administered on 02/02/19at 05:37; Start 02/02/19 at 05:30; Stop 02/02/19 at 06:29; Status DC Hydromorphone HCl 30 ml @ 0 mls/hr CONT PRN PRN IV PER PROTOCOL Last administered on 02/02/19at 10:32; Start 02/02/19 at 09:00; Stop 02/04/19 at 09:09; Status DC Info (Tpn Per Pharmacy) 1 each PRN DAILY PRN MC SEE COMMENTS Last administered on 02/08/19at 12:37; Start 02/02/19 at 10:00 Sodium Phosphate 20 mmol/Dextrose 256.6667 ml @ 64.167 m... 1X ONCE IV Last administered on 02/02/19at 14:38; Start 02/02/19 at 11:00; Stop 02/02/19 at 14:59; Status DC Furosemide (Lasix) 20 mg 1X ONCE IVP Last administered on 02/02/19at 16:16; Start 02/02/19 at 16:00; Stop 02/02/19 at 16:01; Status DC Lidocaine/Sodium Bicarbonate (Buffered Lidocaine 1%) 3 ml 1X ONCE INJ ; Start 02/02/19 at 14:00; Stop 02/02/19 at 14:05; Status DC Sodium Chloride 80 meq/Potassium Chloride 40 meq/ Sodium Phosphate 13.6 mmol/ Magnesium Sulfate 10 meq/Calcium Gluconate 10 meq/ Multivitamins 10 ml/Chromium/ Copper/Manganese/ Seleni/Zn 1 ml/ Total Parenteral Nutrition/Amino Acid s/Dextrose/ Fat Emulsion Intravenous 1,512 ml @ 63 mls/hr TPN CONT IV Last administered on 02/02/19at 21:50; Start 02/02/19 at 22:00; Stop 02/03/19 at 21:59; Status DC Potassium Phosphate 15 mmol/ Sodium Chloride 255 ml @ 127.5 mls/ hr 1X ONCE IV Last administered on 02/03/19at 11:35; Start 02/03/19 at 11:00; Stop 02/03/19 at 12:59; Status DC Potassium Chloride (Klor-Con) 40 meq 1X ONCE PO Last administered on 02/03/19at 21:30; Start 02/03/19 at 11:30; Stop 02/03/19 at 11:31; Status DC Sodium Chloride 120 meq/Potassium Chloride 50 meq/ Sodium Phosphate 20.4 mmol/ Magnesium Sulfate 10 meq/Calcium Gluconate 10 meq/ Multivitamins 10 ml/Chromium/ Copper/Manganese/ Seleni/Zn 1 ml/ Total Parenteral Nutrition/Amino Acids/Dextrose/ Fat Emulsion Intravenous 1,512 ml @ 63 mls/hr TPN CONT IV Last administered on 02/03/19at 21:30; Start 02/03/19 at 22:00; Stop 02/04/19 at 21:59; Status DC Potassium Chloride (Klor-Con) 40 meq 1X ONCE PO Last administered on 02/03/19at 21:31; Start 02/03/19 at 21:00; Stop 02/03/19 at 21:01; Status DC Meropenem 500 mg/ Sodium Chloride 50 ml @ 100 mls/hr Q6HRS IV Last administered on 02/08/19at 05:55; Start 02/04/19 at 07:00; Stop 02/08/19 at 12:04; Status DC Oxycodone/ Acetaminophen (Percocet 5/325) 1 tab PRN Q4HRS PRN PO MODERATE TO SEVERE PAIN Last administered on 02/08/19at 18:28; Start 02/04/19 at 09:15 Docusate Sodium (Colace) 100 mg DAILY PO Last administered on 02/05/19at 09:13; Start 02/04/19 at 10:00 Iohexol (Omnipaque 350 Mg/ml) 75 ml 1X ONCE IV Last administered on 02/04/19at 12:30; Start 02/04/19 at 10:15; Stop 02/04/19 at 10:16; Status DC Info (CONTRAST GIVEN -- Rx MONITORING) 1 each PRN DAILY PRN MC SEE COMMENTS; Start 02/04/19 at 10:15; Stop 02/06/19 at 10:14; Status DC Lorazepam (Ativan) 1 mg PRN Q6HRS PRN PO ANXIETY / AGITATION Last administered on 02/04/19at 18:17; Start 02/04/19 at 13:00; Stop 02/06/19 at 10:42; Status DC Sodium Chloride 120 meq/Sodium Phosphate 24 mmol/ Potassium Chloride 50 meq/ Magnesium Sulfate 13 meq/Calcium Gluconate 10 meq/ Multivitamins 10 ml/Chromium/ Copper/Manganese/ Seleni/Zn 1 ml/ Total Parenteral Nutrition/Amino Acids/Dextrose/ Fat Emulsion Intravenous 1,512 ml @ 63 mls/hr TPN CONT IV Last administered on 02/04/19at 22:20; Start 02/04/19 at 22:00; Stop 02/05/19 at 21:59; Status DC Sodium Phosphate 15 mmol/Dextrose 255 ml @ 63.75 mls/ hr 1X ONCE IV Last administered on 02/04/19at 14:23; Start 02/04/19 at 14:00; Stop 02/04/19 at 17:59; Status DC Lorazepam (Ativan Inj) 2 mg PRN Q4HRS PRN IV ANXIETY/AGITATION (USE 2ND) Last administered on 02/04/19at 20:46; Start 02/04/19 at 20:15; Stop 02/06/19 at 10:42; Status DC Sodium Phosphate 20 mmol/Dextrose 256.6667 ml @ 64.167 m... 1X ONCE IV Last administered on 02/05/19at 12:56; Start 02/05/19 at 12:00; Stop 02/05/19 at 15:59; Status DC Sodium Chloride 120 meq/Sodium Phosphate 27 mmol/ Potassium Chloride 50 meq/ Magnesium Sulfate 13 meq/Calcium Gluconate 10 meq/ Multivitamins 10 ml/Chromium/ Copper/Manganese/ Seleni/Zn 1 ml/ Total Parenteral Nutrition/Amino Acids/Dextrose/ Fat Emulsion Intravenous 1,512 ml @ 63 mls/hr TPN CONT IV Last administered on 02/05/19at 23:33; Start 02/05/19 at 22:00; Stop 02/06/19 at 21:59; Status DC Lorazepam (Ativan Inj) 0.25 mg PRN Q6HRS PRN IV ANXIETY AGITATION, 1ST CHOICE Last administered on 02/06/19at 21:11; Start 02/06/19 at 10:45 Iohexol (Omnipaque 300 Mg/ml) 75 ml 1X ONCE IV Last administered on 02/06/19at 12:38; Start 02/06/19 at 12:00; Stop 02/06/19 at 12:01; Status DC Info (CONTRAST GIVEN -- Rx MONITORING) 1 each PRN DAILY PRN MC SEE COMMENTS; Start 02/06/19 at 11:45; Stop 02/08/19 at 11:44; Status DC Sodium Chloride 100 meq/Sodium Phosphate 20 mmol/ Potassium Chloride 50 meq/ Magnesium Sulfate 13 meq/Calcium Gluconate 10 meq/ Multivitamins 10 ml/Chromium/ Copper/Manganese/ Seleni/Zn 1 ml/ Total Parenteral Nutrition/Amino Acids/Dextrose/ Fat Emulsion Intravenous 1,512 ml @ 63 mls/hr TPN CONT IV Last administered on 02/06/19at 22:05; Start 02/06/19 at 22:00; Stop 02/07/19 at 21:59; Status DC Metronidazole 100 ml @ 100 mls/hr Q6H IV Last administered on 02/08/19at 03:57; Start 02/06/19 at 16:00; Stop 02/08/19 at 12:04; Status DC Hydromorphone HCl (Dilaudid) 1 mg PRN Q2HR PRN IV PAIN Last administered on 02/09/19at 08:27; Start 02/07/19 at 00:00 Metoprolol Tartrate (Lopressor Vial) 5 mg PRN Q6HRS PRN IVP hypertension; Start 02/07/19 at 00:00 Sodium Chloride 50 meq/Sodium Phosphate 20 mmol/ Potassium Chloride 50 meq/ Magnesium Sulfate 13 meq/Calcium Gluconate 10 meq/ Multivitamins 10 ml/Chromium/ Copper/Manganese/ Seleni/Zn 1 ml/ Total Parenteral Nutrition/Amino Acids/Dextrose/ Fat Emulsion Intravenous 1,512 ml @ 63 mls/hr TPN CONT IV Last administered on 02/07/19at 23:14; Start 02/07/19 at 22:00; Stop 02/08/19 at 21:59; Status DC Vancomycin HCl (Vancomycin Oral Solution) 125 mg [id number] PO Last administered on 02/08/19at 22:03; Start 02/08/19 at 09:00 Sodium Chloride 20 meq/Sodium Phosphate 20 mmol/ Potassium Chloride 20 meq/ Magnesium Sulfate 13 meq/Calcium Gluconate 10 meq/ Multivitamins 10 ml/Chromium/ Copper/Manganese/ Seleni/Zn 1 ml/ Total Parenteral Nutrition/Amino Acids/Dextrose/ Fat Emulsion Intravenous 1,512 ml @ 63 mls/hr TPN CONT IV Last administered on 02/08/19at 23:52; Start 02/08/19 at 22:00; Stop 02/09/19 at 21:59 Active Scripts Active Lactulose 20 Gm/30 Ml Solution 20 Gm PO PRN TID PRN 30 Days Zofran (Ondansetron Hcl) 4 Mg Tablet 1 Tab PO Q6HRS 30 Days Hydrocodone-Apap 5-325 (Hydrocodone Bit/Acetaminophen) 1 Tab Tablet 1 Tab PO PRN Q6HRS PRN 6 Days Pantoprazole Sodium (Pantoprazole Sodium) 40 Mg Tablet.dr 40 Mg PO DAILYAC 30 Days Lorazepam 1 Mg Tablet 1 Mg PO PRN Q6HRS PRN 6 Days Reported Proair Hfa Inhaler (Albuterol Sulfate) 8.5 Gm Hfa.aer.ad 1 Puff INH PRN Q6HRS PRN Trelegy Ellipta 100-62.5-25 (Fluticasone/Umeclidin/Vilanter) 1 Each Blst.w.dev 1 Puff PO DAILY Vitals/I & O Vital Sign - Last 24 Hours 02/08/19 02/08/19 02/08/19 02/08/19 09:40 09:40 10:15 11:00 Temp 98.2 98.2 Pulse 129 109 Resp 14 B/P (MAP) 126/82 127/79 (95) O2 Delivery Room Air Room Air Room Air O2 Flow Rate 95.0 02/08/19 02/08/19 02/08/19 02/08/19 11:08 12:55 15:00 15:31 Temp 98.6 98.6 Pulse 94 Resp 16 B/P (MAP) 136/84 (101) Pulse Ox 94 94 O2 Delivery Room Air Room Air Room Air Room Air O2 Flow Rate 95.0 02/08/19 02/08/19 02/08/19 02/08/19 16:35 16:38 17:35 19:00 Temp 98.6 98.6 Pulse 100 Resp 12 B/P (MAP) 150/100 (117) Pulse Ox 98 O2 Delivery Room Air Room Air Room Air Room Air 02/08/19 02/08/19 02/08/19 02/08/19 20:00 20:41 22:03 23:00 Temp 98.9 98.9 Pulse 100 117 Resp 16 B/P (MAP) 150/100 140/72 (94) Pulse Ox 95 97 O2 Delivery Room Air Room Air Room Air 02/09/19 02/09/19 02/09/19 02/09/19 03:00 07:00 08:12 08:27 Temp 98.4 98.3 98.4 98.3 Pulse 108 118 Resp 16 20 B/P (MAP) 144/80 (101) 117/87 (97) Pulse Ox 96 96 96 O2 Delivery Room Air Room Air Room Air Room Air O2 Flow Rate 95.0 Intake and Output 02/08/19 02/08/19 02/09/19 14:59 22:59 06:59 Intake Total 1540 ml 120 ml Output Total 991 ml 935 ml 1375 ml Balance 549 ml -815 ml -1375 ml CANDIS OLEARY MD Feb 09, 2019 08:55
[2019-02-09] MEDS: FAMOTIDINE 20 MG/2 ML VIAL IVP SCH ×2 (09:00→20:21)
[2019-02-09] MEDS: DOCUSATE SODIUM 100 MG CAPSULE. PO SCH (09:00)
[2019-02-09] MEDS: HEPARIN for SUB-Q USE 5,000 UNIT/ML VIAL. SQ SCH ×2 (09:00→20:28)
[2019-02-09] MEDS: THIAMINE 100 MG TABLET. PO SCH (09:00)
[2019-02-09] MEDS: METOPROLOL TART IMMED RELEASE 25 MG TABLET. PO SCH ×2 (09:00→21:00)
[2019-02-09] MEDS ORDERED: ALPRAZolam 0.25 MG TABLET PO PRN (09:30)
[2019-02-09 10:58] VITALS: BP 122/77
[2019-02-09] MEDS: oxyCODONE/APAP 5/325 1 TAB TABLET PO PRN ×2 (11:21→18:10)
[2019-02-09] MEDS: VANCOMYCIN 125 MG/2.5 ML ORAL SOLUTION. PO SCH ×4 (11:21→20:20)
--- NOTE | 2019-02-09 11:21 | PDOC ---
PROGRESS NOTES Assessment Toxic and metabolic encephalopathy, EEG negative for epileptic activity, consistent with encephalopathy (02/06), better Leukocytosis, hypocalcemia, hypophosphatemia, had some hypo-magnesemia, elevated pro-calcitonin levels. Transaminases and bilirubin were normal on 02/03, additional laboratory studies I ordered are normal Plan Hold on lumbar puncture Overall prognosis is poor. Discussed with patient's daughter Subjective No complaints Objective Vital Signs Date Time Temp Pulse Resp B/P (MAP) Pulse Ox O2 Delivery O2 Flow Rate FiO2 02/09/19 10:58 96.9 110 18 122/77 (92) 96 Room Air 96.9 02/09/19 08:27 95.0 Intake and Output 02/09/19 06:59 Intake Total 1660 ml Output Total 3301 ml Balance -1641 ml Intake Oral 1660 ml Output Urine Total 600 ml Stool Total 1 ml Gastric Drainage Total 225 ml Drainage Total 2005 ml Other 470 ml # Voids 2 # Bowel Movements 2 PHYSICAL EXAM Opens eyes to voice, Follows commands, knows name and hospital, not date PERRL. EOMI. CN: no focal findings. Muscle tone: normal. Muscle strength: 4/5 DTR: 2+ Plantar reflex: Flexor Gait: not examined in bed. Sensory exam: intact.. No cerebellar signs noted Review of Relevant I have reviewed the following items dante (where applicable) has been applied. Labs Laboratory Tests Test 02/07/19 17:42 02/07/19 23:56 02/08/19 05:48 02/08/19 06:15 Glucose (Fingerstick) 164 mg/dL (70-99) 142 mg/dL (70-99) 162 mg/dL (70-99) Sodium Level 145 mmol/L (136-145) Potassium Level 4.8 mmol/L (3.5-5.1) Chloride Level 115 mmol/L (98-107) Carbon Dioxide Level 26 mmol/L (21-32) Anion Gap 4 (6-14) Blood Urea Nitrogen 24 mg/dL (7-20) Creatinine 0.6 mg/dL (0.6-1.0) Estimated GFR (Cockcroft-Gault) 102.7 Glucose Level 158 mg/dL (70-99) Calcium Level 7.8 mg/dL (8.5-10.1) Phosphorus Level 3.1 mg/dL (2.6-4.7) Magnesium Level 2.1 mg/dL (1.8-2.4) Test 02/08/19 13:03 02/09/19 04:58 Glucose (Fingerstick) 137 mg/dL (70-99) Sodium Level 137 mmol/L (136-145) Potassium Level 4.9 mmol/L (3.5-5.1) Chloride Level 108 mmol/L (98-107) Carbon Dioxide Level 25 mmol/L (21-32) Anion Gap 4 (6-14) Blood Urea Nitrogen 23 mg/dL (7-20) Creatinine 0.6 mg/dL (0.6-1.0) Estimated GFR (Cockcroft-Gault) 102.7 Glucose Level 139 mg/dL (70-99) Calcium Level 7.8 mg/dL (8.5-10.1) Laboratory Tests Test 02/08/19 13:03 02/09/19 04:58 Glucose (Fingerstick) 137 mg/dL (70-99) Sodium Level 137 mmol/L (136-145) Potassium Level 4.9 mmol/L (3.5-5.1) Chloride Level 108 mmol/L (98-107) Carbon Dioxide Level 25 mmol/L (21-32) Anion Gap 4 (6-14) Blood Urea Nitrogen 23 mg/dL (7-20) Creatinine 0.6 mg/dL (0.6-1.0) Estimated GFR (Cockcroft-Gault) 102.7 Glucose Level 139 mg/dL (70-99) Calcium Level 7.8 mg/dL (8.5-10.1) Microbiology 02/01/19 Urine Culture - Final, Complete 02/01/19 Urine Culture Result 1 (WINSTON) - Final, Complete 02/01/19 Blood Culture - Final, Complete NO GROWTH AFTER 5 DAYS Medications Current Medications Ondansetron HCl (Zofran) 4 mg PRN Q6HRS PRN IV NAUSEA/VOMITING; Start 01/27/19 at 07:00; Stop 01/28/19 at 06:59; Status DC Fentanyl Citrate (Fentanyl 2ml Vial) 25 mcg PRN Q5MIN PRN IV MILD PAIN 1-3; Start 01/27/19 at 07:00; Stop 01/28/19 at 06:59; Status DC Fentanyl Citrate (Fentanyl 2ml Vial) 50 mcg PRN Q5MIN PRN IV MODERATE TO SEVERE PAIN; Start 01/27/19 at 07:00; Stop 01/28/19 at 06:59; Status DC Morphine Sulfate (Morphine Sulfate) 1 mg PRN Q10MIN PRN IV SEVERE PAIN 7-10; Start 01/27/19 at 07:00; Stop 01/28/19 at 06:59; Status DC Ringer's Solution 1,000 ml @ 30 mls/hr Q24H IV Last administered on 01/27/19at 08:15; Start 01/27/19 at 07:00; Stop 01/27/19 at 18:59; Status DC Hydromorphone HCl (Dilaudid) 0.5 mg PRN Q10MIN PRN IV SEV PAIN, Second choice; Start 01/27/19 at 07:00; Stop 01/28/19 at 06:59; Status DC Prochlorperazine Edisylate (Compazine) 5 mg PACU PRN PRN IV NAUSEA, MRX1 Last administered on 01/28/19at 03:33; Start 01/27/19 at 07:00; Stop 01/28/19 at 06:5 9; Status DC Cefoxitin Sodium (Mefoxin) 2 gm 1X PREOP PRN IVP SURGERY Last administered on 01/27/19at 12:18; Start 01/27/19 at 06:00; Stop 01/28/19 at 10:13; Status DC Sevoflurane (Ultane) 90 ml STK-MED ONCE IH ; Start 01/27/19 at 09:11; Stop 01/27/19 at 09:11; Status DC Rocuronium [place] (Zemuron) 50 mg STK-MED ONCE .ROUTE ; Start 01/27/19 at 09:11; Stop 01/27/19 at 09:11; Status DC Fentanyl Citrate (Fentanyl 2ml Vial) 100 mcg STK-MED ONCE .ROUTE ; Start 01/27/19 at 09:11; Stop 01/27/19 at 09:11; Status DC Neostigmine Methylsulfate (Neostigmine Methylsulfate) 5 mg STK-MED ONCE .ROUTE ; Start 01/27/19 at 09:11; Stop 01/27/19 at 09:11; Status DC Midazolam HCl (Versed) 2 mg STK-MED ONCE .ROUTE ; Start 01/27/19 at 09:11; Stop 01/27/19 at 09:11; Status DC Glycopyrrolate (Robinul) 1 mg STK-MED ONCE .ROUTE ; Start 01/27/19 at 09:11; Stop 01/27/19 at 09:11; Status DC Phenylephrine HCl (Bret-Synephrine Inj) 10 mg STK-MED ONCE .ROUTE ; Start 01/27/19 at 09:11; Stop 01/27/19 at 09:12; Status DC Dexamethasone Sodium Phosphate (Decadron) 4 mg STK-MED ONCE .ROUTE ; Start 01/27/19 at 09:11; Stop 01/27/19 at 09:12; Status DC Ondansetron HCl (Zofran) 4 mg STK-MED ONCE .ROUTE ; Start 01/27/19 at 09:12; Stop 01/27/19 at 09:12; Status DC Lidocaine HCl (Lidocaine Pf 2% Vial) 5 ml STK-MED ONCE .ROUTE ; Start 01/27/19 at 09:12; Stop 01/27/19 at 09:12; Status DC Propofol 20 ml @ As Directed STK-MED ONCE IV ; Start 01/27/19 at 09:12; Stop 01/27/19 at 09:12; Status DC Sodium Chloride (Normal Saline Flush) 3 ml QSHIFT PRN IV AFTER MEDS AND BLOOD DRAWS; Start 01/27/19 at 09:30; Stop 02/03/19 at 09:09; Status DC Ibuprofen (Motrin) 400 mg PRN Q6HRS PRN PO MILD PAIN 1-3; Start 01/27/19 at 09:30 Naloxone HCl (Narcan) 0.4 mg PRN Q2MIN PRN IV SEE INSTRUCTIONS; Start 01/27/19 at 09:30; Stop 01/31/19 at 09:15; Status DC Sodium Chloride 1,000 ml @ 25 mls/hr Q24H IV ; Start 01/27/19 at 09:28; Stop 01/30/19 at 14:52; Status DC Ondansetron HCl (Zofran) 4 mg PRN Q6HRS PRN IV Nausea, 2nd Choice; Start 01/27/19 at 09:30; Status Cancel Epinephrine HCl (EPINEPHrine SYRINGE) 1 mg STK-MED ONCE .ROUTE ; Start 01/27/19 at 10:15; Stop 01/27/19 at 10:16; Status DC Lidocaine HCl (Lidocaine Pf 2% Vial) 5 ml STK-MED ONCE .ROUTE ; Start 01/27/19 at 10:15; Stop 01/27/19 at 10:16; Status DC Ropivacaine (Naropin 0.5%) 20 ml STK-MED ONCE .ROUTE ; Start 01/27/19 at 10:17; Stop 01/27/19 at 10:18; Status DC Cellulose (Surgicel Hemostat 4x8) 1 each STK-MED ONCE .ROUTE Last administered on 01/27/19at 11:25; Start 01/27/19 at 11:24; Stop 01/27/19 at 11:25; Status DC Cellulose (Surgicel Hemostat 4x8) 1 each STK-MED ONCE .ROUTE Last administered on 01/27/19at 11:39; Start 01/27/19 at 11:38; Stop 01/27/19 at 11:38; Status DC Rocuronium [place] (Zemuron) 50 mg STK-MED ONCE .ROUTE ; Start 01/27/19 at 12:09; Stop 01/27/19 at 12:09; Status DC Cefoxitin Sodium (Mefoxin) 2 gm 1X ONCE IVP Last administered on 01/27/19at 12:33; Start 01/27/19 at 12:30; Stop 01/27/19 at 12:31; Status DC Phenylephrine HCl (Bret-Synephrine Inj) 10 mg STK-MED ONCE .ROUTE ; Start 03/07 at 14:49; Stop 01/27/19 at 14:49; Status DC Sodium Chloride 35 ml/Fentanyl Citrate 250 mcg/ Ropivacaine 10 ml/ Epidural D emmonak Infused (Pha) 50 ml @ 0 mls/hr CONT EPID ; Start 01/27/19 at 15:00; Status UNV Sodium Chloride 35 ml/Fentanyl Citrate 250 mcg/ Ropivacaine 10 ml/ Epidural Dosage Infused (Pha) 50 ml @ 0 mls/hr CONT PRN EPID SEE PROTOCOL TABLE Last administered on 01/28/19at 05:00; Start 01/27/19 at 15:00; Stop 01/28/19 at 08:11; Status DC Cefoxitin Sodium (Mefoxin) 2 gm 1X PREOP PRN IVP SURGERY Last administered on 01/27/19at 16:47; Start 01/27/19 at 15:15; Stop 01/28/19 at 10:13; Status DC Famotidine (Pepcid Vial) 20 mg BID IVP Last administered on 02/08/19at 22:03; Start 01/27/19 at 21:00 Enoxaparin Sodium (Lovenox 40mg Syringe) 40 mg Q24H SQ Last administered on 01/29/19at 12:24; Start 01/28/19 at 09:00; Stop 01/29/19 at 17:14; Status DC Sodium Chloride (Normal Saline Flush) 3 ml QSHIFT PRN IV AFTER MEDS AND BLOOD DRAWS; Start 01/27/19 at 15:45 Ringer's Solution 1,000 ml @ 100 mls/hr Q10H IV Last administered on 01/30/19 03:20; Start 01/27/19 at 15:33; Stop 01/30/19 at 14:52; Status DC Naloxone HCl (Narcan) 0.4 mg PRN Q2MIN PRN IV SEE INSTRUCTIONS; Start 01/27/19 at 15:45 Sodium Chloride 1,000 ml @ 25 mls/hr Q24H IV ; Start 01/27/19 at 15:33; Stop 01/28/19 at 15:52; Status DC Ondansetron HCl (Zofran) 4 mg PRN Q6HRS PRN IV NAUESA, 1ST CHOICE Last administered on 02/01/19at 23:49; Start 01/27/19 at 15:45 Sodium Chloride 35 ml/Fentanyl Citrate 250 mcg/ Ropivacaine 10 ml/ Epidural Dosa ge Infused (Pha) 50 ml @ 0 mls/hr CONT PRN EPID SEE PROTOCOL TABLE Last administered on 02/01/19at 08:00; Start 01/28/19 at 08:15; Stop 02/01/19 at 10:03; Status DC Throat Lozenges (Cepacol Sore Throat Lozenge) 1 karthikeyan PRN Q2HRS PRN PO SORE THROAT Last administered on 01/28/19at 10:49; Start 01/28/19 at 09:30 Lorazepam (Ativan Inj) 0.5 mg PRN Q6HRS PRN IV ANXIETY AGITATION, 1ST CHOICE Last administered on 9/14/19at 21:13; Start 01/28/19 at 12:30; Stop 02/06/19 at 10:42; Status DC Thiamine HCl 100 mg DAILY IM Last administered on 01/30/19at 09:12; Start 01/28/19 at 13:00; Stop 01/31/19 at 11:44; Status DC Lorazepam (Ativan Inj) 2 mg PRN Q1HR PRN IV For CIWA 8-14 Last administered on 02/06/19at 03:27; Start 01/28/19 at 13:00; Stop 02/06/19 at 10:42; Status DC Lorazepam (Ativan Inj) 4 mg PRN Q1HR PRN IV For CIWA 15 or greater; Start 01/28/19 at 13:00; Stop 02/06/19 at 10:42; Status DC Haloperidol Lactate (Haldol Inj) 5 mg PRN Q4HRS PRN IVP Hallucinatns,Confusn,Delirium Last administered on 02/06/19at 21:35; Start 01/28/19 at 13:00 Diphenhydramine HCl (Benadryl) 25 mg PRN Q15MIN PRN IVP EPS symptoms 2'Haldol admin; Start 01/28/19 at 13:00 Lorazepam (Ativan Inj) 2 mg PRN Q15MIN PRN IV SEE COMMENTS Last administered on 02/05/19at 01:12; Start 01/28/19 at 13:00; Stop 02/06/19 at 10:42; Status DC Lorazepam (Ativan Inj) 4 mg PRN Q15MIN PRN IV SEE COMMENTS Last administered on 02/05/19at 02:29; Start 01/28/19 at 13:00; Stop 02/06/19 at 10:42; Status DC Albuterol/ Ipratropium (Duoneb) 3 ml RTQID NEB Last administered on 02/09/19at 08:11; Start 01/28/19 at 13:00 Non-Formulary Medication (Fluticasone/ Umeclidin/ Vilanter (Trelegy Ellipta 100 -62.5-25)) 1 puff DAILY PO ; Start 01/29/19 at 09:00; Status UNV Budesonide (Pulmicort) 0.5 mg RTBID NEB Last administered on 02/09/19 08:11; Start 01/28/19 at 20:00 Albuterol Sulfate (Ventolin Neb Soln) 2.5 mg PRN Q6HRS PRN INH SHORTNESS OF BREATH; Start 01/28/19 at 14:00 Lorazepam (Ativan) 1 mg PRN Q6HRS PRN PO ANXIETY / AGITATION Last administered on 02/04/19at 12:07; Start 01/28/19 at 14:00; Stop 02/04/19 at 12:58; Status DC Pantoprazole Sodium (Protonix) 40 mg DAILYAC PO Last administered on 02/08/19 09:40; Start 01/28/19 at 16:30 Metoprolol Tartrate (Lopressor Vial) 12.5 mg BID IVP ; Start 01/29/19 at 21:00; Stop 01/29/19 at 14:50; Status DC Metoprolol Tartrate (Lopressor) 12.5 mg BID PO Last administered on 02/08/19 22:03; Start 01/29/19 at 17:00 Amino Acids/ Glycerin/ Electrolytes 1,000 ml @ 75 mls/hr [id number] IV Last administered on 02/02/19 18:20; Start 01/30/19 at 11:30; Stop 02/02/19 at 21:59; Status DC Acetaminophen (Tylenol) 650 mg PRN Q6HRS PRN PO fever Last administered on 02/01/19at 08:45; Start 01/31/19 at 01:15 Thiamine Mononitrate (Vitamin B-1) 100 mg DAILY PO Last administered on 02/08/19 09:40; Start 01/31/19 at 12:30 Heparin Sodium (Porcine) (Heparin Sodium) 5,000 unit Q12HR SQ Last administered on 02/08/19at 23:52; Start 01/31/19 at 14:00 Piperacillin Sod/ Tazobactam Sod 3.375 gm/Sodium Chloride 50 ml @ 100 mls/hr Q6HRS IV Last administered on 02/04/19 05:58; Start 02/01/19 at 10:00; Stop 02/04/19 at 06:32; Status DC Linezolid/Dextrose 300 ml @ 300 mls/hr Q12HR IV Last administered on 02/03/19at 21:30; Start 02/01/19 at 10:00; Stop 02/04/19 at 06:32; Status DC Micafungin Sodium 100 mg/Dextrose 100 ml @ 100 mls/hr Q24H IV Last administered on 02/08/19at 10:27; Start 02/01/19 at 11:00; Stop 02/08/19 at 12:04; Status DC Sodium Chloride 35 ml/Fentanyl Citrate 250 mcg/ Ropivacaine 10 ml/ Epidural Dosage Infused (Pha) 50 ml @ 0 mls/hr CONT PRN EPID SEE PROTOCOL TABLE Last administered on 02/01/19at 11:16; Start 02/01/19 at 10:15; Stop 02/04/19 at 09:09; Status DC Fentanyl Citrate (Fentanyl 2ml Vial) 25 mcg PRN Q5MIN PRN IV MILD PAIN 1-3; Start 02/01/19 at 14:00; Stop 02/02/19 at 13:59; Status DC Fentanyl Citrate (Fentanyl 2ml Vial) 50 mcg PRN Q5MIN PRN IV MODERATE TO SEVERE PAIN Last administered on 02/02/19at 09:09; Start 02/01/19 at 14:00; Stop 02/02/19 at 13:59; Status DC Hydromorphone HCl (Dilaudid) 1 mg PRN Q2HR PRN IV PAIN Last administered on 02/06/19at 09:11; Start 02/01/19 at 16:30; Stop 02/06/19 at 10:42; Status DC Ketorolac Tromethamine (Toradol 30mg Vial) 30 mg 1X ONCE IV Last administered on 02/01/19at 16:43; Start 02/01/19 at 16:30; Stop 02/01/19 at 16:31; Status DC Sodium Chloride 500 ml @ 500 mls/hr 1X ONCE IV Last administered on 02/02/19at 05:37; Start 02/02/19 at 05:30; Stop 02/02/19 at 06:29; Status DC Hydromorphone HCl 30 ml @ 0 mls/hr CONT PRN PRN IV PER PROTOCOL Last administered on 02/02/19at 10:32; Start 02/02/19 at 09:00; Stop 02/04/19 at 09:09; Status DC Info (Tpn Per Pharmacy) 1 each PRN DAILY PRN MC SEE COMMENTS Last administered on 02/08/19at 12:37; Start 02/02/19 at 10:00 Sodium Phosphate 20 mmol/Dextrose 256.6667 ml @ 64.167 m... 1X ONCE IV Last administered on 02/02/19at 14:38; Start 02/02/19 at 11:00; Stop 02/02/19 at 14:59; Status DC Furosemide (Lasix) 20 mg 1X ONCE IVP Last administered on 02/02/19at 16:16; Start 02/02/19 at 16:00; Stop 02/02/19 at 16:01; Status DC Lidocaine/Sodium Bicarbonate (Buffered Lidocaine 1%) 3 ml 1X ONCE INJ ; Start 02/02/19 at 14:00; Stop 02/02/19 at 14:05; Status DC Sodium Chloride 80 meq/Potassium Chloride 40 meq/ Sodium Phosphate 13.6 mmol/ Magnesium Sulfate 10 meq/Calcium Gluconate 10 meq/ Multivitamins 10 ml/Chromium/ Copper/Manganese/ Seleni/Zn 1 ml/ Total Parenteral Nutrition/Amino Acids/Dextrose/ Fat Emulsion Intravenous 1,512 ml @ 63 mls/hr TPN CONT IV Last administered on 02/02/19at 21:50; Start 02/02/19 at 22:00; Stop 02/03/19 at 21:59; Status DC Potassium Phosphate 15 mmol/ Sodium Chloride 255 ml @ 127.5 mls/ hr 1X ONCE IV Last administered on 02/03/19at 11:35; Start 02/03/19 at 11:00; Stop 02/03/19 at 12:59; Status DC Potassium Chloride (Klor-Con) 40 meq 1X ONCE PO Last administered on 02/03/19at 21:30; Start 02/03/19 at 11:30; Stop 02/03/19 at 11:31; Status DC Sodium Chloride 120 meq/Potassium Chloride 50 meq/ Sodium Phosphate 20.4 mmol/ Magnesium Sulfate 10 meq/Calcium Gluconate 10 meq/ Multivitamins 10 ml/Chromium/ Copper/Manganese/ Seleni/Zn 1 ml/ Total Parenteral Nutrition/Amino Acids/Dextrose/ Fat Emulsion Intravenous 1,512 ml @ 63 mls/hr TPN CONT IV Last administered on 02/03/19at 21:30; Start 02/03/19 at 22:00; Stop 02/04/19 at 21:59; Status DC Potassium Chloride (Klor-Con) 40 meq 1X ONCE PO Last administered on 02/03/19at 21:31; Start 02/03/19 at 21:00; Stop 02/03/19 at 21:01; Status DC Meropenem 500 mg/ Sodium Chloride 50 ml @ 100 mls/hr Q6HRS IV Last administered on 02/08/19at 05:55; Start 02/04/19 at 07:00; Stop 02/08/19 at 12:04; Status DC Oxycodone/ Acetaminophen (Percocet 5/325) 1 tab PRN Q4HRS PRN PO MODERATE TO SEVERE PAIN Last administered on 02/08/19at 18:28; Start 02/04/19 at 09:15 Docusate Sodium (Colace) 100 mg DAILY PO Last administered on 02/05/19at 09:13; Start 02/04/19 at 10:00 Iohexol (Omnipaque 350 Mg/ml) 75 ml 1X ONCE IV Last administered on 02/04/19at 12:30; Start 02/04/19 at 10:15; Stop 02/04/19 at 10:16; Status DC Info (CONTRAST GIVEN -- Rx MONITORING) 1 each PRN DAILY PRN MC SEE COMMENTS; Start 02/04/19 at 10:15; Stop 02/06/19 at 10:14; Status DC Lorazepam (Ativan) 1 mg PRN Q6HRS PRN PO ANXIETY / AGITATION Last administered on 02/04/19at 18:17; Start 02/04/19 at 13:00; Stop 02/06/19 at 10:42; Status DC Sodium Chloride 120 meq/Sodium Phosphate 24 mmol/ Potassium Chloride 50 meq/ Magnesium Sulfate 13 meq/Calcium Gluconate 10 meq/ Multivitamins 10 ml/Chromium/ Copper/Manganese/ Seleni/Zn 1 ml/ Total Parenteral Nutrition/Amino Acids/Dextrose/ Fat Emulsion Intravenous 1,512 ml @ 63 mls/hr TPN CONT IV Last administered on 02/04/19at 22:20; Start 02/04/19 at 22:00; Stop 02/05/19 at 21:59; Status DC Sodium Phosphate 15 mmol/Dextrose 255 ml @ 63.75 mls/ hr 1X ONCE IV Last administered on 02/04/19at 14:23; Start 02/04/19 at 14:00; Stop 02/04/19 at 17:59; Status DC Lorazepam (Ativan Inj) 2 mg PRN Q4HRS PRN IV ANXIETY/AGITATION (USE 2ND) Last administered on 02/04/19at 20:46; Start 02/04/19 at 20:15; Stop 02/06/19 at 10:42; Status DC Sodium Phosphate 20 mmol/Dextrose 256.6667 ml @ 64.167 m... 1X ONCE IV Last administered on 02/05/19at 12:56; Start 02/05/19 at 12:00; Stop 02/05/19 at 15:59; Status DC Sodium Chloride 120 meq/Sodium Phosphate 27 mmol/ Potassium Chloride 50 meq/ Magnesium Sulfate 13 meq/Calcium Gluconate 10 meq/ Multivitamins 10 ml/Chromium/ Copper/Manganese/ Seleni/Zn 1 ml/ Total Parenteral Nutrition/Amino Acids/Dextrose/ Fat Emulsion Intravenous 1,512 ml @ 63 mls/hr TPN CONT IV Las t administered on 02/05/19at 23:33; Start 02/05/19 at 22:00; Stop 02/06/19 at 21:59; Status DC Lorazepam (Ativan Inj) 0.25 mg PRN Q6HRS PRN IV ANXIETY AGITATION, 1ST CHOICE Last administered on 02/06/19at 21:11; Start 02/06/19 at 10:45 Iohexol (Omnipaque 300 Mg/ml) 75 ml 1X ONCE IV Last administered on 02/06/19at 12:38; Start 02/06/19 at 12:00; Stop 02/06/19 at 12:01; Status DC Info (CONTRAST GIVEN -- Rx MONITORING) 1 each PRN DAILY PRN MC SEE COMMENTS; Start 02/06/19 at 11:45; Stop 02/08/19 at 11:44; Status DC Sodium Chloride 100 meq/Sodium Phosphate 20 mmol/ Potassium Chloride 50 meq/ Magnesium Sulfate 13 meq/Calcium Gluconate 10 meq/ Multivitamins 10 ml/Chromium/ Copper/Manganese/ Seleni/Zn 1 ml/ Total Parenteral Nutrition/Amino Acids/Dextrose/ Fat Emulsion Intravenous 1,512 ml @ 63 mls/hr TPN CONT IV Last administered on 02/06/19at 22:05; Start 02/06/19 at 22:00; Stop 02/07/19 at 21:59; Status DC Metronidazole 100 ml @ 100 mls/hr Q6H IV Last administered on 02/08/19at 03:57; Start 02/06/19 at 16:00; Stop 02/08/19 at 12:04; Status DC Hydromorphone HCl (Dilaudid) 1 mg PRN Q2HR PRN IV PAIN Last administered on 02/09/19at 08:27; Start 02/07/19 at 00:00 Metoprolol Tartrate (Lopressor Vial) 5 mg PRN Q6HRS PRN IVP hypertension; Start 02/07/19 at 00:00 Sodium Chloride 50 meq/Sodium Phosphate 20 mmol/ Potassium Chloride 50 meq/ Magnesium Sulfate 13 meq/Calcium Gluconate 10 meq/ Multivitamins 10 ml/Chromium/ Copper/Manganese/ Seleni/Zn 1 ml/ Total Parenteral Nutrition/Amino Acids/Dextrose/ Fat Emulsion Intravenous 1,512 ml @ 63 mls/hr TPN CONT IV Last administered on 02/07/19at 23:14; Start 02/07/19 at 22:00; Stop 02/08/19 at 21:59; Status DC Vancomycin HCl (Vancomycin Oral Solution) 125 mg [id number] PO Last administered on 02/08/19at 22:03; Start 02/08/19 at 09:00 Sodium Chloride 20 meq/Sodium Phosphate 20 mmol/ Potassium Chloride 20 meq/ Magnesium Sulfate 13 meq/Calcium Gluconate 10 meq/ Multivitamins 10 ml/Chromium/ Copper/Manganese/ Seleni/Zn 1 ml/ Total Parenteral Nutrition/Amino Acids/Dextrose/ Fat Emulsion Intravenous 1,512 ml @ 63 mls/hr TPN CONT IV Last administered on 02/08/19at 23:52; Start 02/08/19 at 22:00; Stop 02/09/19 at 21:59 Alprazolam (Xanax) 0.25 mg PRN Q8HRS PRN PO ANXIETY / AGITATION; Start 02/09/19 at 09:30 Active Scripts Active Lactulose 20 Gm/30 Ml Solution 20 Gm PO PRN TID PRN 30 Days Zofran (Ondansetron Hcl) 4 Mg Tablet 1 Tab PO Q6HRS 30 Days Hydrocodone-Apap 5-325 (Hydrocodone Bit/Acetaminophen) 1 Tab Tablet 1 Tab PO PRN Q6HRS PRN 6 Days Pantoprazole Sodium (Pantoprazole Sodium) 40 Mg Tablet.dr 40 Mg PO DAILYAC 30 Days Lorazepam 1 Mg Tablet 1 Mg PO PRN Q6HRS PRN 6 Days Reported Proair Hfa Inhaler (Albuterol Sulfate) 8.5 Gm Hfa.aer.ad 1 Puff INH PRN Q6HRS PRN Trelegy Ellipta 100-62.5-25 (Fluticasone/Umeclidin/Vilanter) 1 Each Blst.w.dev 1 Puff PO DAILY Vitals/I & O Vital Sign - Last 24 Hours 02/08/19 02/08/19 02/08/19 02/08/19 12:55 15:00 15:31 16:35 Temp 98.6 98.6 Pulse 94 Resp 16 B/P (MAP) 136/84 (101) Pulse Ox 94 94 O2 Delivery Room Air Room Air Room Air Room Air O2 Flow Rate 95.0 02/08/19 02/08/19 02/08/19 02/08/19 16:38 17:35 19:00 20:00 Temp 98.6 98.6 Pulse 100 Resp 12 B/P (MAP) 150/100 (117) Pulse Ox 98 O2 Delivery Room Air Room Air Room Air Room Air 02/08/19 02/08/19 02/08/19 02/09/19 20:41 22:03 23:00 03:00 Temp 98.9 98.4 98.9 98.4 Pulse 100 117 108 Resp 16 16 B/P (MAP) 150/100 140/72 (94) 144/80 (101) Pulse Ox 95 97 96 O2 Delivery Room Air Room Air Room Air 02/09/19 02/09/19 02/09/19 02/09/19 07:00 08:00 08:12 08:27 Temp 98.3 98.3 Pulse 118 Resp 20 B/P (MAP) 117/87 (97) Pulse Ox 96 96 O2 Delivery Room Air Room Air Room Air Room Air O2 Flow Rate 95.0 02/09/19 10:58 Temp 96.9 96.9 Pulse 110 Resp 18 B/P (MAP) 122/77 (92) Pulse Ox 96 O2 Delivery Room Air Intake and Output 02/08/19 02/08/19 02/09/19 14:59 22:59 06:59 Intake Total 1540 ml 120 ml Output Total 991 ml 935 ml 1375 ml Balance 549 ml -815 ml -1375 ml REAL RIOJAS MD Feb 09, 2019 11:21
--- NOTE | 2019-02-09 12:06 | PDOC ---
Infectious Disease Note Subjective Subjective No fevers , no BM today ROS ROS no n/v/d/ Vital Sign Vital Signs Vital Signs Date Time Temp Pulse Resp B/P (MAP) Pulse Ox O2 Delivery O2 Flow Rate FiO2 02/09/19 11:40 96 Room Air 95.0 02/09/19 10:58 96.9 110 18 122/77 (92) 96.9 Physical Exam PHYSICAL EXAM GENERAL: Resting quietly, mittens on ,, awake, more interactive HEENT: Oral cavity dry LUNGS: Clear anteriorly. HEART: S1, S2. No gallops or murmurs. ABDOMEN: Soft, mildly distended. Abd wound dressed. GJ tube intact : [facility] (02/06) EXTREMITIES: No edema, no cyanosis. Right foot bandaged DERMATOLOGIC: Warm, dry. No generalized rash. RIJ - clean Labs Lab Laboratory Tests Test 02/08/19 13:03 02/09/19 04:58 Glucose (Fingerstick) 137 mg/dL (70-99) Sodium Level 137 mmol/L (136-145) Potassium Level 4.9 mmol/L (3.5-5.1) Chloride Level 108 mmol/L (98-107) Carbon Dioxide Level 25 mmol/L (21-32) Anion Gap 4 (6-14) Blood Urea Nitrogen 23 mg/dL (7-20) Creatinine 0.6 mg/dL (0.6-1.0) Estimated GFR (Cockcroft-Gault) 102.7 Glucose Level 139 mg/dL (70-99) Calcium Level 7.8 mg/dL (8.5-10.1) Micro Microbiology 02/01/19 Urine Culture - Final, Complete 02/01/19 Urine Culture Result 1 ([facility]) - Final, Complete 02/01/19 Blood Culture - Final, Complete NO GROWTH AFTER 5 DAYS Objective Assessment Fever - resolved UA - clean. Leukocytosis - better Status post Whipple's 01/27 Pancreatic CA Encephalopathy - ? metabolic History of hepatitis C. History of bilateral mastectomy. Chronic obstructive pulmonary disease. Peripheral neuropathy. ETOH abuse and h/o anxiety. Urinary retention s/p [facility] placement, 02/06 Plan Plan of Care cont po vanco, closely monitor, may have to reinitiate if s/s of infection d/w daughter at bedside D/w nursing TRINI GAXIOLA MD Feb 09, 2019 12:05
[2019-02-09] MEDS: QUEtiapine 50 MG TAB.ER.24H. PO SCH (12:45)
--- NOTE | 2019-02-09 12:47 | PDOC ---
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 Anxiety persistent enceph POOR PO, on tpn History of Present Illness History of Present Illness some issues with anxiety needing 1:1 On ativan 0,.25 IV and haldol - that family is ok giving anyways SItter mentions about the sedatives lingering PEr RN, pt responds well to pain meds on tpn plus PO - slow recovery from whipples PLAN: LTAC accepted - dw SW but needs to be off 1:1 kaur Kelly Ok to dc tele, be off tele bed Trial of seroquel, first dose now kaur RN Vitals Vitals Vital Signs Date Time Temp Pulse Resp B/P (MAP) Pulse Ox O2 Delivery O2 Flow Rate FiO2 02/09/19 12:21 Room Air 02/09/19 11:40 96 95.0 02/09/19 10:58 96.9 110 18 122/77 (92) 96.9 Physical Exam Physical Exam GENERAL: Resting quietly, mittens on ,, awake, more interactive HEENT: Oral cavity dry LUNGS: Clear anteriorly. HEART: S1, S2. No gallops or murmurs. ABDOMEN: Soft, mildly distended. Abd wound dressed. GJ tube intact : Moreno (02/06) EXTREMITIES: No edema, no cyanosis. Right foot bandaged DERMATOLOGIC: Warm, dry. No generalized rash. RIJ - clean General: No acute distress Heart: Normal S1, Normal S2 Lungs: Clear Abdomen: Soft, No tenderness, Other (SEA sites with clear ascites ) Extremities: No clubbing, No cyanosis, No tenderness/swelling Skin: No rashes, No breakdown Labs LABS Laboratory Tests Test 02/08/19 13:03 02/09/19 04:58 Glucose (Fingerstick) 137 mg/dL (70-99) Sodium Level 137 mmol/L (136-145) Potassium Level 4.9 mmol/L (3.5-5.1) Chloride Level 108 mmol/L (98-107) Carbon Dioxide Level 25 mmol/L (21-32) Anion Gap 4 (6-14) Blood Urea Nitrogen 23 mg/dL (7-20) Creatinine 0.6 mg/dL (0.6-1.0) Estimated GFR (Cockcroft-Gault) 102.7 Glucose Level 139 mg/dL (70-99) Calcium Level 7.8 mg/dL (8.5-10.1) Review of Systems Review of Systems confused, limited ros Comment Review of Relevant I have reviewed the following items dante (where applicable) has been applied. Labs Laboratory Tests Test 02/07/19 17:42 02/07/19 23:56 02/08/19 05:48 02/08/19 06:15 Glucose (Fingerstick) 164 mg/dL (70-99) 142 mg/dL (70-99) 162 mg/dL (70-99) Sodium Level 145 mmol/L (136-145) Potassium Level 4.8 mmol/L (3.5-5.1) Chloride Level 115 mmol/L (98-107) Carbon Dioxide Level 26 mmol/L (21-32) Anion Gap 4 (6-14) Blood Urea Nitrogen 24 mg/dL (7-20) Creatinine 0.6 mg/dL (0.6-1.0) Estimated GFR (Cockcroft-Gault) 102.7 Glucose Level 158 mg/dL (70-99) Calcium Level 7.8 mg/dL (8.5-10.1) Phosphorus Level 3.1 mg/dL (2.6-4.7) Magnesium Level 2.1 mg/dL (1.8-2.4) Test 02/08/19 13:03 02/09/19 04:58 Glucose (Fingerstick) 137 mg/dL (70-99) Sodium Level 137 mmol/L (136-145) Potassium Level 4.9 mmol/L (3.5-5.1) Chloride Level 108 mmol/L (98-107) Carbon Dioxide Level 25 mmol/L (21-32) Anion Gap 4 (6-14) Blood Urea Nitrogen 23 mg/dL (7-20) Creatinine 0.6 mg/dL (0.6-1.0) Estimated GFR (Cockcroft-Gault) 102.7 Glucose Level 139 mg/dL (70-99) Calcium Level 7.8 mg/dL (8.5-10.1) Laboratory Tests Test 02/08/19 13:03 02/09/19 04:58 Glucose (Fingerstick) 137 mg/dL (70-99) Sodium Level 137 mmol/L (136-145) Potassium Level 4.9 mmol/L (3.5-5.1) Chloride Level 108 mmol/L (98-107) Carbon Dioxide Level 25 mmol/L (21-32) Anion Gap 4 (6-14) Blood Urea Nitrogen 23 mg/dL (7-20) Creatinine 0.6 mg/dL (0.6-1.0) Estimated GFR (Cockcroft-Gault) 102.7 Glucose Level 139 mg/dL (70-99) Calcium Level 7.8 mg/dL (8.5-10.1) Microbiology 02/01/19 Urine Culture - Final, Complete 02/01/19 Urine Culture Result 1 ([facility]INSTON) - Final, Complete 02/01/19 Blood Culture - Final, Complete NO GROWTH AFTER 5 DAYS Medications Current Medications Ondansetron HCl (Zofran) 4 mg PRN Q6HRS PRN IV NAUSEA/VOMITING; Start 01/27/19 at 07:00; Stop 01/28/19 at 06:59; Status DC Fentanyl Citrate (Fentanyl 2ml Vial) 25 mcg PRN Q5MIN PRN IV MILD PAIN 1-3; Start 01/27/19 at 07:00; Stop 01/28/19 at 06:59; Status DC Fentanyl Citrate (Fentanyl 2ml Vial) 50 mcg PRN Q5MIN PRN IV MODERATE TO SEVERE PAIN; Start 01/27/19 at 07:00; Stop 01/28/19 at 06:59; Status DC Morphine Sulfate (Morphine Sulfate) 1 mg PRN Q10MIN PRN IV SEVERE PAIN 7-10; Start 01/27/19 at 07:00; Stop 01/28/19 at 06:59; Status DC Ringer's Solution 1,000 ml @ 30 mls/hr Q24H IV Last administered on 01/27/19at 08:15; Start 01/27/19 at 07:00; Stop 01/27/19 at 18:59; Status DC Hydromorphone HCl (Dilaudid) 0.5 mg PRN Q10MIN PRN IV SEV PAIN, Second choice; Start 01/27/19 at 07:00; Stop 01/28/19 at 06:59; Status DC Prochlorperazine Edisylate (Compazine) 5 mg PACU PRN PRN IV NAUSEA, MRX1 Last administered on 01/28/19at 03:33; Start 01/27/19 at 07:00; Stop 01/28/19 at 06:59; Status DC Cefoxitin Sodium (Mefoxin) 2 gm 1X PREOP PRN IVP SURGERY Last administered on 01/27/19at 12:18; Start 01/27/19 at 06:00; Stop 01/28/19 at 10:13; Status DC Sevoflurane (Ultane) 90 ml STK-MED ONCE IH ; Start 01/27/19 at 09:11; Stop 01/27/19 at 09:11; Status DC Rocuronium Cody (Zemuron) 50 mg STK-MED ONCE .ROUTE ; Start 01/27/19 at 09:11; Stop 01/27/19 at 09:11; Status DC Fentanyl Citrate (Fentanyl 2ml Vial) 100 mcg STK-MED ONCE .ROUTE ; Start 01/27/19 at 09:11; Stop 01/27/19 at 09:11; Status DC Neostigmine Methylsulfate (Neostigmine Methylsulfate) 5 mg STK-MED ONCE .ROUTE ; Start 01/27/19 at 09:11; Stop 01/27/19 at 09:11; Status DC Midazolam HCl (Versed) 2 mg STK-MED ONCE .ROUTE ; Start 01/27/19 at 09:11; Stop 01/27/19 at 09:11; Status DC Glycopyrrolate (Robinul) 1 mg STK-MED ONCE .ROUTE ; Start 01/27/19 at 09:11; Stop 01/27/19 at 09:11; Status DC Phenylephrine HCl (Bret-Synephrine Inj) 10 mg STK-MED ONCE .ROUTE ; Start 01/27/19 at 09:11; Stop 01/27/19 at 09:12; Status DC Dexamethasone Sodium Phosphate (Decadron) 4 mg STK-MED ONCE .ROUTE ; Start 01/27/19 at 09:11; Stop 01/27/19 at 09:12; Status DC Ondansetron HCl (Zofran) 4 mg STK-MED ONCE .ROUTE ; Start 01/27/19 at 09:12; Stop 01/27/19 at 09:12; Status DC Lidocaine HCl (Lidocaine Pf 2% Vial) 5 ml STK-MED ONCE .ROUTE ; Start 01/27/19 at 09:12; Stop 01/27/19 at 09:12; Status DC Propofol 20 ml @ As Directed STK-MED ONCE IV ; Start 01/27/19 at 09:12; Stop 01/27/19 at 09:12; Status DC Sodium Chloride (Normal Saline Flush) 3 ml QSHIFT PRN IV AFTER MEDS AND BLOOD DRAWS; Start 01/27/19 at 09:30; Stop 02/03/19 at 09:09; Status DC Ibuprofen (Motrin) 400 mg PRN Q6HRS PRN PO MILD PAIN 1-3; Start 01/27/19 at 09:30 Naloxone HCl (Narcan) 0.4 mg PRN Q2MIN PRN IV SEE INSTRUCTIONS; Start 01/27/19 at 09:30; Stop 01/31/19 at 09:15; Status DC Sodium Chloride 1,000 ml @ 25 mls/hr Q24H IV ; Start 01/27/19 at 09:28; Stop 01/30/19 at 14:52; Status DC Ondansetron HCl (Zofran) 4 mg PRN Q6HRS PRN IV Nausea, 2nd Choice; Start 01/27/19 at 09:30; Status Cancel Epinephrine HCl (EPINEPHrine SYRINGE) 1 mg STK-MED ONCE .ROUTE ; Start 01/27/19 at 10:15; Stop 01/27/19 at 10:16; Status DC Lidocaine HCl (Lidocaine Pf 2% Vial) 5 ml STK-MED ONCE .ROUTE ; Start 01/27/19 at 10:15; Stop 01/27/19 at 10:16; Status DC Ropivacaine (Naropin 0.5%) 20 ml STK-MED ONCE .ROUTE ; Start 01/27/19 at 10:17; Stop 01/27/19 at 10:18; Status DC Cellulose (Surgicel Hemostat 4x8) 1 each STK-MED ONCE .ROUTE Last administered on 01/27/19at 11:25; Start 01/27/19 at 11:24; Stop 01/27/19 at 11:25; Status DC Cellulose (Surgicel Hemostat 4x8) 1 each STK-MED ONCE .ROUTE Last administered on 01/27/19at 11:39; Start 01/27/19 at 11:38; Stop 01/27/19 at 11:38; Status DC Rocuronium Cody (Zemuron) 50 mg STK-MED ONCE .ROUTE ; Start 01/27/19 at 12:09; Stop 01/27/19 at 12:09; Status DC Cefoxitin Sodium (Mefoxin) 2 gm 1X ONCE IVP Last administered on 01/27/19at 12:33; Start 01/27/19 at 12:30; Stop 01/27/19 at 12:31; Status DC Phenylephrine HCl (Bret-Synephrine Inj) 10 mg STK-MED ONCE .ROUTE ; Start 01/27/19 at 14:49; Stop 01/27/19 at 14:49; Status DC Sodium Chloride 35 ml/Fentanyl Citrate 250 mcg/ Ropivacaine 10 ml/ Epidural Dosage Infused (Pha) 50 ml @ 0 mls/hr CONT EPID ; Start 01/27/19 at 15:00; Status UNV Sodium Chloride 35 ml/Fentanyl Citrate 250 mcg/ Ropivacaine 10 ml/ Epidural Dosage Infused (Pha) 50 ml @ 0 mls/hr CONT PRN EPID SEE PROTOCOL TABLE Last administered on 01/28/19at 05:00; Start 01/27/19 at 15:00; Stop 01/28/19 at 08:11; Status DC Cefoxitin Sodium (Mefoxin) 2 gm 1X PREOP PRN IVP SURGERY Last administered on at 16:47; Start 01/27/19 at 15:15; Stop 01/28/19 at 10:13; Status DC Famotidine (Pepcid Vial) 20 mg BID IVP Last administered on 02/08/19at 22:03; Start 01/27/19 at 21:00 Enoxaparin Sodium (Lovenox 40mg Syringe) 40 mg Q24H SQ Last administered on at 12:24; Start 01/28/19 at 09:00; Stop 01/29/19 at 17:14; Status DC Sodium Chloride (Normal Saline Flush) 3 ml QSHIFT PRN IV AFTER MEDS AND BLOOD DRAWS; Start 01/27/19 at 15:45 Ringer's Solution 1,000 ml @ 100 mls/hr Q10H IV Last administered on 01/30/19at 03:20; Start 01/27/19 at 15:33; Stop 01/30/19 at 14:52; Status DC Naloxone HCl (Narcan) 0.4 mg PRN Q2MIN PRN IV SEE INSTRUCTIONS; Start 01/27/19 at 15:45 Sodium Chloride 1,000 ml @ 25 mls/hr Q24H IV ; Start 01/27/19 at 15:33; Stop 01/28/19 at 15:52; Status DC Ondansetron HCl (Zofran) 4 mg PRN Q6HRS PRN IV NAUESA, 1ST CHOICE Last administered on 02/01/19at 23:49; Start 01/27/19 at 15:45 Sodium Chloride 35 ml/Fentanyl Citrate 250 mcg/ Ropivacaine 10 ml/ Epidural Dosage Infused (Pha) 50 ml @ 0 mls/hr CONT PRN EPID SEE PROTOCOL TABLE Last administered on 02/01/19at 08:00; Start 01/28/19 at 08:15; Stop 02/01/19 at 10:03; Status DC Throat Lozenges (Cepacol Sore Throat Lozenge) 1 karthikeyan PRN Q2HRS PRN PO SORE THROAT Last administered on 01/28/19at 10:49; Start 01/28/19 at 09:30 Lorazepam (Ativan Inj) 0.5 mg PRN Q6HRS PRN IV ANXIETY AGITATION, 1ST CHOICE Last administered on 01/31/19at 21:13; Start 01/28/19 at 12:30; Stop 02/06/19 at 10:42; Status DC Thiamine HCl 100 mg DAILY IM Last administered on 01/30/19at 09:12; Start 01/28/19 at 13:00; Stop 01/31/19 at 11:44; Status DC Lorazepam (Ativan Inj) 2 mg PRN Q1HR PRN IV For CIWA 8-14 Last administered on 02/06/19at 03:27; Start 01/28/19 at 13:00; Stop 02/06/19 at 10:42; Status DC Lorazepam (Ativan Inj) 4 mg PRN Q1HR PRN IV For CIWA 15 or greater; Start 01/28/19 at 13:00; Stop 02/06/19 at 10:42; Status DC Haloperidol Lactate (Haldol Inj) 5 mg PRN Q4HRS PRN IVP Hallucinatns,Confusn,Delirium Last administered on 02/06/19at 21:35; Start 01/28/19 at 13:00 Diphenhydramine HCl (Benadryl) 25 mg PRN Q15MIN PRN IVP EPS symptoms 2'Haldol admin; Start 01/28/19 at 13:00 Lorazepam (Ativan Inj) 2 mg PRN Q15MIN PRN IV SEE COMMENTS Last administered on 02/05/19at 01:12; Start 01/28/19 at 13:00; Stop 02/06/19 at 10:42; Status DC Lorazepam (Ativan Inj) 4 mg PRN Q15MIN PRN IV SEE COMMENTS Last administered on 02/05/19at 02:29; Start 01/28/19 at 13:00; Stop 02/06/19 at 10:42; Status DC Albuterol/ Ipratropium (Duoneb) 3 ml RTQID NEB Last administered on 02/09/19at 08:11; Start 01/28/19 at 13:00 Non-Formulary Medication (Fluticasone/ Umeclidin/ Vilanter (Trelegy Ellipta 100-62.5-25)) 1 puff DAILY PO ; Start 01/29/19 at 09:00; Status UNV Budesonide (Pulmicort) 0.5 mg RTBID NEB Last administered on 02/09/19at 08:11; Start 01/28/19 at 20:00 Albuterol Sulfate (Ventolin Neb Soln) 2.5 mg PRN Q6HRS PRN INH SHORTNESS OF BREATH; Start 01/28/19 at 14:00 Lorazepam (Ativan) 1 mg PRN Q6HRS PRN PO ANXIETY / AGITATION Last administered on 02/04/19at 12:07; Start 01/28/19 at 14:00; Stop 02/04/19 at 12:58; Status DC Pantoprazole Sodium (Protonix) 40 mg DAILYAC PO Last administered on 02/08/19at 09:40; Start 01/28/19 at 16:30 Metoprolol Tartrate (Lopressor Vial) 12.5 mg BID IVP ; Start 01/29/19 at 21:00; Stop 01/29/19 at 14:50; Status DC Metoprolol Tartrate (Lopressor) 12.5 mg BID PO Last administered on 02/08/19at 22:03; Start 01/29/19 at 17:00 Amino Acids/ Glycerin/ Electrolytes 1,000 ml @ 75 mls/hr [id number] IV Last administered on 02/02/19at 18:20; Start 01/30/19 at 11:30; Stop 02/02/19 at 21:59; Status DC Acetaminophen (Tylenol) 650 mg PRN Q6HRS PRN PO fever Last administered on 02/01/19at 08:45; Start 01/31/19 at 01:15 Thiamine Mononitrate (Vitamin B-1) 100 mg DAILY PO Last administered on 02/08/19at 09:40; Start 01/31/19 at 12:30 Heparin Sodium (Porcine) (Heparin Sodium) 5,000 unit Q12HR SQ Last administered on 02/08/19at 23:52; Start 01/31/19 at 14:00 Piperacillin Sod/ Tazobactam Sod 3.375 gm/Sodium Chloride 50 ml @ 100 mls/hr Q6HRS IV Last administered on 02/04/19at 05:58; Start 02/01/19 at 10:00; Stop 02/04/19 at 06:32; Status DC Linezolid/Dextrose 300 ml @ 300 mls/hr Q12HR IV Last administered on 02/03/19at 21:30; Start 02/01/19 at 10:00; Stop 02/04/19 at 06:32; Status DC Micafungin Sodium 100 mg/Dextrose 100 ml @ 100 mls/hr Q24H IV Last administered on 02/08/19at 10:27; Start 02/01/19 at 11:00; Stop 02/08/19 at 12:04; Status DC Sodium Chloride 35 ml/Fentanyl Citrate 250 mcg/ Ropivacaine 10 ml/ Epidural Dosage Infused (Pha) 50 ml @ 0 mls/hr CONT PRN EPID SEE PROTOCOL TABLE Last a dministered on 02/01/19at 11:16; Start 02/01/19 at 10:15; Stop 02/04/19 at 09:09; Status DC Fentanyl Citrate (Fentanyl 2ml Vial) 25 mcg PRN Q5MIN PRN IV MILD PAIN 1-3; Start 02/01/19 at 14:00; Stop 02/02/19 at 13:59; Status DC Fentanyl Citrate (Fentanyl 2ml Vial) 50 mcg PRN Q5MIN PRN IV MODERATE TO SEVERE PAIN Last administered on 02/02/19at 09:09; Start 02/01/19 at 14:00; Stop 02/02/19 at 13:59; Status DC Hydromorphone HCl (Dilaudid) 1 mg PRN Q2HR PRN IV PAIN Last administered on 02/06/19at 09:11; Start 02/01/19 at 16:30; Stop 02/06/19 at 10:42; Status DC Ketorolac Tromethamine (Toradol 30mg Vial) 30 mg 1X ONCE IV Last administered on 02/01/19at 16:43; Start 02/01/19 at 16:30; Stop 02/01/19 at 16:31; Status DC Sodium Chloride 500 ml @ 500 mls/hr 1X ONCE IV Last administered on 02/02/19at 05:37; Start 02/02/19 at 05:30; Stop 02/02/19 at 06:29; Status DC Hydromorphone HCl 30 ml @ 0 mls/hr CONT PRN PRN IV PER PROTOCOL Last administered on 02/02/19at 10:32; Start 02/02/19 at 09:00; Stop 02/04/19 at 09:0 9; Status DC Info (Tpn Per Pharmacy) 1 each PRN DAILY PRN MC SEE COMMENTS Last administered on 02/08/19at 12:37; Start 02/02/19 at 10:00 Sodium Phosphate 20 mmol/Dextrose 256.6667 ml @ 64.167 m... 1X ONCE IV Last administered on 02/02/19at 14:38; Start 02/02/19 at 11:00; Stop 02/02/19 at 14:59; Status DC Furosemide (Lasix) 20 mg 1X ONCE IVP Last administered on 02/02/19at 16:16; Start 02/02/19 at 16:00; Stop 02/02/19 at 16:01; Status DC Lidocaine/Sodium Bicarbonate (Buffered Lidocaine 1%) 3 ml 1X ONCE INJ ; Start 02/02/19 at 14:00; Stop 02/02/19 at 14:05; Status DC Sodium Chloride 80 meq/Potassium Chloride 40 meq/ Sodium Phosphate 13.6 mmol/ Magnesium Sulfate 10 meq/Calcium Gluconate 10 meq/ Multivitamins 10 ml/Chromium/ Copper/Manganese/ Seleni/Zn 1 ml/ Total Parenteral Nutrition/Amino Acids/Dextrose/ Fat Emulsion Intravenous 1,512 ml @ 63 mls/hr TPN CONT IV Last administered on 02/02/19at 21:50; Start 02/02/19 at 22:00; Stop 02/03/19 at 21:59; Status DC Potassium Phosphate 15 mmol/ Sodium Chloride 255 ml @ 127.5 mls/ hr 1X ONCE IV Last administered on 02/03/19at 11:35; Start 02/03/19 at 11:00; Stop 02/03/19 at 12:59; Status DC Potassium Chloride (Klor-Con) 40 meq 1X ONCE PO Last administered on 02/03/19at 21:30; Start 02/03/19 at 11:30; Stop 02/03/19 at 11:31; Status DC Sodium Chloride 120 meq/Potassium Chloride 50 meq/ Sodium Phosphate 20.4 mmol/ Magnesium Sulfate 10 meq/Calcium Gluconate 10 meq/ Multivitamins 10 ml/Chromium/ Copper/Manganese/ Seleni/Zn 1 ml/ Total Parenteral Nutrition/Amino Acids/Dextrose/ Fat Emulsion Intravenous 1,512 ml @ 63 mls/hr TPN CONT IV Last administered on 02/03/19at 21:30; Start 02/03/19 at 22:00; Stop 02/04/19 at 21:59; Status DC Potassium Chloride (Klor-Con) 40 meq 1X ONCE PO Last administered on 02/03/19at 21:31; Start 02/03/19 at 21:00; Stop 02/03/19 at 21:01; Status DC Meropenem 500 mg/ Sodium Chloride 50 ml @ 100 mls/hr Q6HRS IV Last administered on 02/08/19at 05:55; Start 02/04/19 at 07:00; Stop 02/08/19 at 12:04; Status DC Oxycodone/ Acetaminophen (Percocet 5/325) 1 tab PRN Q4HRS PRN PO MODERATE TO SEVERE PAIN Last administered on 02/09/19at 11:40; Start 02/04/19 at 09:15 Docusate Sodium (Colace) 100 mg DAILY PO Last administered on 02/05/19at 09:13; Start 02/04/19 at 10:00 Iohexol (Omnipaque 350 Mg/ml) 75 ml 1X ONCE IV Last administered on 02/04/19at 12:30; Start 02/04/19 at 10:15; Stop 02/04/19 at 10:16; Status DC Info (CONTRAST GIVEN -- Rx MONITORING) 1 each PRN DAILY PRN MC SEE COMMENTS; Start 02/04/19 at 10:15; Stop 02/06/19 at 10:14; Status DC Lorazepam (Ativan) 1 mg PRN Q6HRS PRN PO ANXIETY / AGITATION Last administered on 02/04/19at 18:17; Start 02/04/19 at 13:00; Stop 02/06/19 at 10:42; Status DC Sodium Chloride 120 meq/Sodium Phosphate 24 mmol/ Potassium Chloride 50 meq/ Magnesium Sulfate 13 meq/Calcium Gluconate 10 meq/ Multivitamins 10 ml/Chromium/ Copper/Manganese/ Seleni/Zn 1 ml/ Total Parenteral Nutrition/Amino Acids/Dextrose/ Fat Emulsion Intravenous 1,512 ml @ 63 mls/hr TPN CONT IV Last administered on 02/04/19at 22:20; Start 02/04/19 at 22:00; Stop 02/05/19 at 21:59; Status DC Sodium Phosphate 15 mmol/Dextrose 255 ml @ 63.75 mls/ hr 1X ONCE IV Last ad ministered on 02/04/19at 14:23; Start 02/04/19 at 14:00; Stop 02/04/19 at 17:59; Status DC Lorazepam (Ativan Inj) 2 mg PRN Q4HRS PRN IV ANXIETY/AGITATION (USE 2ND) Last administered on 02/04/19at 20:46; Start 02/04/19 at 20:15; Stop 02/06/19 at 10:42; Status DC Sodium Phosphate 20 mmol/Dextrose 256.6667 ml @ 64.167 m... 1X ONCE IV Last administered on 02/05/19at 12:56; Start 02/05/19 at 12:00; Stop 02/05/19 at 15:59; Status DC Sodium Chloride 120 meq/Sodium Phosphate 27 mmol/ Potassium Chloride 50 meq/ Magnesium Sulfate 13 meq/Calcium Gluconate 10 meq/ Multivitamins 10 ml/Chromium/ Copper/Manganese/ Seleni/Zn 1 ml/ Total Parenteral Nutrition/Amino Acids/Dextrose/ Fat Emulsion Intravenous 1,512 ml @ 63 mls/hr TPN CONT IV Last administered on 02/05/19at 23:33; Start 02/05/19 at 22:00; Stop 02/06/19 at 21:59; Status DC Lorazepam (Ativan Inj) 0.25 mg PRN Q6HRS PRN IV ANXIETY AGITATION, 1ST CHOICE Last administered on 02/06/19at 21:11; Start 02/06/19 at 10:45 Iohexol (Omnipaque 300 Mg/ml) 75 ml 1X ONCE IV Last administered on 02/06/19at 12:38; Start 02/06/19 at 12:00; Stop 02/06/19 at 12:01; Status DC Info (CONTRAST GIVEN -- Rx MONITORING) 1 each PRN DAILY PRN MC SEE COMMENTS; Start 02/06/19 at 11:45; Stop 02/08/19 at 11:44; Status DC Sodium Chloride 100 meq/Sodium Phosphate 20 mmol/ Potassium Chloride 50 meq/ Magnesium Sulfate 13 meq/Calcium Gluconate 10 meq/ Multivitamins 10 ml/Chromium/ Copper/Manganese/ Seleni/Zn 1 ml/ Total Parenteral Nutrition/Amino Acids/Dextrose/ Fat Emulsion Intravenous 1,512 ml @ 63 mls/hr TPN CONT IV Last administered on 02/06/19at 22:05; Start 02/06/19 at 22:00; Stop 02/07/19 at 21:59; Status DC Metronidazole 100 ml @ 100 mls/hr Q6H IV Last administered on 02/08/19at 03:57; Start 02/06/19 at 16:00; Stop 02/08/19 at 12:04; Status DC Hydromorphone HCl (Dilaudid) 1 mg PRN Q2HR PRN IV PAIN Last administered on 02/09/19at 11:40; Start 02/07/19 at 00:00 Metoprolol Tartrate (Lopressor Vial) 5 mg PRN Q6HRS PRN IVP hypertension; Start 02/07/19 at 00:00 Sodium Chloride 50 meq/Sodium Phosphate 20 mmol/ Potassium Chloride 50 meq/ Magnesium Sulfate 13 meq/Calcium Gluconate 10 meq/ Multivitamins 10 ml/Chromium/ Copper/Manganese/ Seleni/Zn 1 ml/ Total Parenteral Nutrition/Amino Acids/Dextrose/ Fat Emulsion Intravenous 1,512 ml @ 63 mls/hr TPN CONT IV Last administered on 02/07/19at 23:14; Start 02/07/19 at 22:00; Stop 02/08/19 at 21:59; Status DC Vancomycin HCl (Vancomycin Oral Solution) 125 mg [id number] PO Last administered on 02/09/19at 11:40; Start 02/08/19 at 09:00 Sodium Chloride 20 meq/Sodium Phosphate 20 mmol/ Potassium Chloride 20 meq/ Magnesium Sulfate 13 meq/Calcium Gluconate 10 meq/ Multivitamins 10 ml/Chromium/ Copper/Manganese/ Seleni/Zn 1 ml/ Total Parenteral Nutrition/Amino Acids/Dextrose/ Fat Emulsion Intravenous 1,512 ml @ 63 mls/hr TPN CONT IV Last administered on 02/08/19at 23:52; Start 02/08/19 at 22:00; Stop 02/09/19 at 21:59 Alprazolam (Xanax) 0.25 mg PRN Q8HRS PRN PO ANXIETY / AGITATION; Start 02/09/19 at 09:30 Active Scripts Active Lactulose 20 Gm/30 Ml Solution 20 Gm PO PRN TID PRN 30 Days Zofran (Ondansetron Hcl) 4 Mg Tablet 1 Tab PO Q6HRS 30 Days Hydrocodone-Apap 5-325 (Hydrocodone Bit/Acetaminophen) 1 Tab Tablet 1 Tab PO PRN Q6HRS PRN 6 Days Pantoprazole Sodium (Pantoprazole Sodium) 40 Mg Tablet.dr 40 Mg PO DAILYAC 30 Days Lorazepam 1 Mg Tablet 1 Mg PO PRN Q6HRS PRN 6 Days Reported Proair Hfa Inhaler (Albuterol Sulfate) 8.5 Gm Hfa.aer.ad 1 Puff INH PRN Q6HRS PRN Trelegy Ellipta 100-62.5-25 (Fluticasone/Umeclidin/Vilanter) 1 Each Blst.w.dev 1 Puff PO DAILY Vitals/I & O Vital Sign - Last 24 Hours 02/08/19 02/08/19 02/08/19 02/08/19 12:55 15:00 15:31 16:35 Temp 98.6 98.6 Pulse 94 Resp 16 B/P (MAP) 136/84 (101) Pulse Ox 94 94 O2 Delivery Room Air Room Air Room Air Room Air O2 Flow Rate 95.0 9/22/19 9/22/19 9/22/19 9/22/19 16:38 17:35 19:00 20:00 Temp 98.6 98.6 Pulse 100 Resp 12 B/P (MAP) 150/100 (117) Pulse Ox 98 O2 Delivery Room Air Room Air Room Air Room Air 02/08/19 02/08/19 02/08/19 02/09/19 20:41 22:03 23:00 03:00 Temp 98.9 98.4 98.9 98.4 Pulse 100 117 108 Resp 16 16 B/P (MAP) 150/100 140/72 (94) 144/80 (101) Pulse Ox 95 97 96 O2 Delivery Room Air Room Air Room Air 02/09/19 02/09/19 02/09/19 02/09/19 07:00 08:00 08:12 08:27 Temp 98.3 98.3 Pulse 118 Resp 20 B/P (MAP) 117/87 (97) Pulse Ox 96 96 O2 Delivery Room Air Room Air Room Air Room Air O2 Flow Rate 95.0 02/09/19 02/09/19 02/09/19 02/09/19 10:58 11:40 11:40 12:21 Temp 96.9 96.9 Pulse 110 Resp 18 B/P (MAP) 122/77 (92) Pulse Ox 96 96 96 O2 Delivery Room Air Room Air Room Air Room Air O2 Flow Rate 95.0 95.0 Intake and Output 02/08/19 02/08/19 02/09/19 15:00 23:00 07:00 Intake Total 1540 ml 120 ml Output Total 991 ml 935 ml 1375 ml Balance 549 ml -815 ml -1375 ml MARY SILVESTRE MD Feb 09, 2019 12:47
[2019-02-09] MEDS: TPN PER PHARMACY MC PRN (14:11)
[2019-02-09 15:00] VITALS: BP 124/68
[2019-02-09 19:25] VITALS: BP 143/86
[2019-02-09] MEDS ORDERED: DEXTROSE 70% IV SCH ×10 (22:00)
[2019-02-09] MEDS ORDERED: AMINO ACID IV SCH ×10 (22:00)
[2019-02-09] MEDS ORDERED: [UNRECOGNIZED DRUG - OTHER] IV SCH ×10 (22:00)
[2019-02-09] MEDS ORDERED: TOTAL PARENTERAL NUTRITION IV SCH ×10 (22:00)
[2019-02-10] MEDS: HYDROmorphone 2 MG/ML VIAL IV PRN ×2 (00:12→12:56)
[2019-02-10] MEDS: fentaNYL PF VIAL 100 MCG/2 ML VIAL IV PRN ×4 (02:02→19:44)
[2019-02-10 03:25] VITALS: BP 133/85
[2019-02-10] MEDS: oxyCODONE/APAP 5/325 1 TAB TABLET PO PRN (05:23)
[2019-02-10 06:34] LABS: ALBUMIN 1.4 g/dL (3.4-5.0); ALBUMIN/GLOBULIN RATIO 0.3 (1.0-1.7); CALCIUM 8.1 mg/dL (8.5-10.1); CREATININE 0.7 mg/dL (0.6-1.0); GFR 85.9; TOTAL BILIRUBIN 0.7 mg/dL (0.2-1.0); TOTAL PROTEIN 5.5 g/dL (6.4-8.2)
[2019-02-10 07:00] VITALS: BP 139/90
[2019-02-10] MEDS: VANCOMYCIN 125 MG/2.5 ML ORAL SOLUTION. PO SCH ×4 (07:24→21:04)
[2019-02-10] MEDS: BUDESONIDE 0.5 MG/2 ML NEBU. NEB SCH ×2 (07:25→20:39)
[2019-02-10] MEDS: IPRATRPIUM/ALBUTEROL 0.5/2.5MG 3 ML NEBU. NEB SCH ×4 (07:25→20:39)
[2019-02-10] MEDS: PANTOPRAZOLE 40 MG TABLET.DR. PO SCH (07:30)
[2019-02-10] MEDS ORDERED: LORazepam 1 MG TABLET PO PRN (08:15)
--- NOTE | 2019-02-10 08:22 | PDOC ---
SURGICAL PROGRESS NOTE Subjective moans in pain some confusion Vital Signs Vital Signs Date Time Temp Pulse Resp B/P (MAP) Pulse Ox O2 Delivery O2 Flow Rate FiO2 02/10/19 08:07 97 Room Air 95.0 02/10/19 07:00 97.9 110 21 139/90 (106) 97.9 I&O Intake and Output 02/10/19 07:00 Intake Total 3224 ml Output Total 1025 ml Balance 2199 ml Intake Oral 440 ml IV Total 2784 ml Output Urine Total 200 ml Drainage Total 825 ml General: Alert, Cooperative Abdomen: Soft, Other (ascites drainage, g tube in place) Labs Laboratory Tests Test 02/08/19 13:03 02/09/19 04:58 02/10/19 00:36 02/10/19 05:30 Glucose (Fingerstick) 137 mg/dL (70-99) 160 mg/dL (70-99) Sodium Level 137 mmol/L (136-145) 133 mmol/L (136-145) Potassium Level 4.9 mmol/L (3.5-5.1) 5.0 mmol/L (3.5-5.1) Chloride Level 108 mmol/L (98-107) 104 mmol/L (98-107) Carbon Dioxide Level 25 mmol/L (21-32) 23 mmol/L (21-32) Anion Gap 4 (6-14) 6 (6-14) Blood Urea Nitrogen 23 mg/dL (7-20) 27 mg/dL (7-20) Creatinine 0.6 mg/dL (0.6-1.0) 0.7 mg/dL (0.6-1.0) Estimated GFR (Cockcroft-Gault) 102.7 85.9 Glucose Level 139 mg/dL (70-99) 135 mg/dL (70-99) Calcium Level 7.8 mg/dL (8.5-10.1) 8.1 mg/dL (8.5-10.1) BUN/Creatinine Ratio 39 (6-20) Total Bilirubin 0.7 mg/dL (0.2-1.0) Aspartate Amino Transf (AST/SGOT) 50 U/L (15-37) Alanine Aminotransferase (ALT/SGPT) 31 U/L (14-59) Alkaline Phosphatase 206 U/L (46-116) Total Protein 5.5 g/dL (6.4-8.2) Albumin 1.4 g/dL (3.4-5.0) Albumin/Globulin Ratio 0.3 (1.0-1.7) Triglycerides Level 42 mg/dL (0-150) Laboratory Tests Test 02/10/19 00:36 02/10/19 05:30 Glucose (Fingerstick) 160 mg/dL (70-99) Sodium Level 133 mmol/L (136-145) Potassium Level 5.0 mmol/L (3.5-5.1) Chloride Level 104 mmol/L (98-107) Carbon Dioxide Level 23 mmol/L (21-32) Anion Gap 6 (6-14) Blood Urea Nitrogen 27 mg/dL (7-20) Creatinine 0.7 mg/dL (0.6-1.0) Estimated GFR (Cockcroft-Gault) 85.9 BUN/Creatinine Ratio 39 (6-20) Glucose Level 135 mg/dL (70-99) Calcium Level 8.1 mg/dL (8.5-10.1) Total Bilirubin 0.7 mg/dL (0.2-1.0) Aspartate Amino Transf (AST/SGOT) 50 U/L (15-37) Alanine Aminotransferase (ALT/SGPT) 31 U/L (14-59) Alkaline Phosphatase 206 U/L (46-116) Total Protein 5.5 g/dL (6.4-8.2) Albumin 1.4 g/dL (3.4-5.0) Albumin/Globulin Ratio 0.3 (1.0-1.7) Triglycerides Level 42 mg/dL (0-150) Assessment/Plan supportive measures PEDRITO TAPIA APRN Feb 10, 2019 08:22
--- NOTE | 2019-02-10 08:51 | PDOC ---
PROGRESS NOTES Subjective Subjective HPI - f/u of T2, N1 pancreatic cancer ROS - no CP Objective Objective Vital Signs Date Time Temp Pulse Resp B/P (MAP) Pulse Ox O2 Delivery O2 Flow Rate FiO2 02/10/19 08:07 97 Room Air 95.0 02/10/19 07:00 97.9 110 21 139/90 (106) 97.9 Intake and Output 02/10/19 07:00 Intake Total 3224 ml Output Total 1025 ml Balance 2199 ml Intake Oral 440 ml IV Total 2784 ml Output Urine Total 200 ml Drainage Total 825 ml Physical Exam General: Alert, No acute distress Neck: No JVD Assessment Assessment IMPRESSION AND PLAN: 1. T2, N1 pancreatic cancer. Liver biopsy is still pending. She underwent Whipple surgery on 01/27/2019. I reviewed the case at multidisciplinary tumor conference. Plan to continue postoperative care. Await biopsy of the liver. If it is negative, I will plan for adjuvant chemotherapy with Gemzar and Xeloda after she completely recovers. I will plan for a followup visit at my office in 3 to 4 weeks. I d/w RN 2. Leukocytosis, reactive. Infectious Disease has been consulted. Fever has improved. She did have a CT scan on 02/01/2019 which revealed gas and fluid collection at the gallbladder fossa. There is also evidence of hepatic cirrhosis. Continue supportive care management. WBC 23. 3. Cirrhosis of the liver. Continue supportive care. 4. Anemia - Hb 9.5. Comment Review of Relevant I have reviewed the following items dante (where applicable) has been applied. Labs Laboratory Tests Test 02/08/19 13:03 02/09/19 04:58 02/10/19 00:36 02/10/19 05:30 Glucose (Fingerstick) 137 mg/dL (70-99) 160 mg/dL (70-99) Sodium Level 137 mmol/L (136-145) 133 mmol/L (136-145) Potassium Level 4.9 mmol/L (3.5-5.1) 5.0 mmol/L (3.5-5.1) Chloride Level 108 mmol/L (98-107) 104 mmol/L (98-107) Carbon Dioxide Level 25 mmol/L (21-32) 23 mmol/L (21-32) Anion Gap 4 (6-14) 6 (6-14) Blood Urea Nitrogen 23 mg/dL (7-20) 27 mg/dL (7-20) Creatinine 0.6 mg/dL (0.6-1.0) 0.7 mg/dL (0.6-1.0) Estimated GFR (Cockcroft-Gault) 102.7 85.9 Glucose Level 139 mg/dL (70-99) 135 mg/dL (70-99) Calcium Level 7.8 mg/dL (8.5-10.1) 8.1 mg/dL (8.5-10.1) BUN/Creatinine Ratio 39 (6-20) Total Bilirubin 0.7 mg/dL (0.2-1.0) Aspartate Amino Transf (AST/SGOT) 50 U/L (15-37) Alanine Aminotransferase (ALT/SGPT) 31 U/L (14-59) Alkaline Phosphatase 206 U/L (46-116) Total Protein 5.5 g/dL (6.4-8.2) Albumin 1.4 g/dL (3.4-5.0) Albumin/Globulin Ratio 0.3 (1.0-1.7) Triglycerides Level 42 mg/dL (0-150) Laboratory Tests Test 02/10/19 00:36 02/10/19 05:30 Glucose (Fingerstick) 160 mg/dL (70-99) Sodium Level 133 mmol/L (136-145) Potassium Level 5.0 mmol/L (3.5-5.1) Chloride Level 104 mmol/L (98-107) Carbon Dioxide Level 23 mmol/L (21-32) Anion Gap 6 (6-14) Blood Urea Nitrogen 27 mg/dL (7-20) Creatinine 0.7 mg/dL (0.6-1.0) Estimated GFR (Cockcroft-Gault) 85.9 BUN/Creatinine Ratio 39 (6-20) Glucose Level 135 mg/dL (70-99) Calcium Level 8.1 mg/dL (8.5-10.1) Total Bilirubin 0.7 mg/dL (0.2-1.0) Aspartate Amino Transf (AST/SGOT) 50 U/L (15-37) Alanine Aminotransferase (ALT/SGPT) 31 U/L (14-59) Alkaline Phosphatase 206 U/L (46-116) Total Protein 5.5 g/dL (6.4-8.2) Albumin 1.4 g/dL (3.4-5.0) Albumin/Globulin Ratio 0.3 (1.0-1.7) Triglycerides Level 42 mg/dL (0-150) Microbiology 02/01/19 Urine Culture - Final, Complete 02/01/19 Urine Culture Result 1 ([facility]) - Final, Complete 02/01/19 Blood Culture - Final, Complete NO GROWTH AFTER 5 DAYS Medications Current Medications Ondansetron HCl (Zofran) 4 mg PRN Q6HRS PRN IV NAUSEA/VOMITING; Start 01/27/19 at 07:00; Stop 01/28/19 at 06:59; Status DC Fentanyl Citrate (Fentanyl 2ml Vial) 25 mcg PRN Q5MIN PRN IV MILD PAIN 1-3; Start 01/27/19 at 07:00; Stop 01/28/19 at 06:59; Status DC Fentanyl Citrate (Fentanyl 2ml Vial) 50 mcg PRN Q5MIN PRN IV MODERATE TO SEVERE PAIN; Start 01/27/19 at 07:00; Stop 01/28/19 at 06:59; Status DC Morphine Sulfate (Morphine Sulfate) 1 mg PRN Q10MIN PRN IV SEVERE PAIN 7-10; Start 01/27/19 at 07:00; Stop 01/28/19 at 06:59; Status DC Ringer's Solution 1,000 ml @ 30 mls/hr Q24H IV Last administered on 01/27/19at 08:15; Start 01/27/19 at 07:00; Stop 01/27/19 at 18:59; Status DC Hydromorphone HCl (Dilaudid) 0.5 mg PRN Q10MIN PRN IV SEV PAIN, Second choice; Start 01/27/19 at 07:00; Stop 01/28/19 at 06:59; Status DC Prochlorperazine Edisylate (Compazine) 5 mg PACU PRN PRN IV NAUSEA, MRX1 Last administered on 01/28/19at 03:33; Start 01/27/19 at 07:00; Stop 01/28/19 at 06:59; Status DC Cefoxitin Sodium (Mefoxin) 2 gm 1X PREOP PRN IVP SURGERY Last administered on 01/27/19at 12:18; Start 01/27/19 at 06:00; Stop 01/28/19 at 10:13; Status DC Sevoflurane (Ultane) 90 ml STK-MED ONCE IH ; Start 01/27/19 at 09:11; Stop 01/27/19 at 09:11; Status DC Rocuronium Smoot (Zemuron) 50 mg STK-MED ONCE .ROUTE ; Start 01/27/19 at 09:11; Stop 01/27/19 at 09:11; Status DC Fentanyl Citrate (Fentanyl 2ml Vial) 100 mcg STK-MED ONCE .ROUTE ; Start 01/27/19 at 09:11; Stop 01/27/19 at 09:11; Status DC Neostigmine Methylsulfate (Neostigmine Methylsulfate) 5 mg STK-MED ONCE .ROUTE ; Start 01/27/19 at 09:11; Stop 01/27/19 at 09:11; Status DC Midazolam HCl (Versed) 2 mg STK-MED ONCE .ROUTE ; Start 01/27/19 at 09:11; Stop 01/27/19 at 09:11; Status DC Glycopyrrolate (Robinul) 1 mg STK-MED ONCE .ROUTE ; Start 01/27/19 at 09:11; Stop 01/27/19 at 09:11; Status DC Phenylephrine HCl (Bret-Synephrine Inj) 10 mg STK-MED ONCE .ROUTE ; Start 01/27/19 at 09:11; Stop 01/27/19 at 09:12; Status DC Dexamethasone Sodium Phosphate (Decadron) 4 mg STK-MED ONCE .ROUTE ; Start 01/27/19 at 09:11; Stop 01/27/19 at 09:12; Status DC Ondansetron HCl (Zofran) 4 mg STK-MED ONCE .ROUTE ; Start 01/27/19 at 09:12; Stop 01/27/19 at 09:12; Status DC Lidocaine HCl (Lidocaine Pf 2% Vial) 5 ml STK-MED ONCE .ROUTE ; Start 01/27/19 at 09:12; Stop 01/27/19 at 09:12; Status DC Propofol 20 ml @ As Directed STK-MED ONCE IV ; Start 01/27/19 at 09:12; Stop 01/27/19 at 09:12; Status DC Sodium Chloride (Normal Saline Flush) 3 ml QSHIFT PRN IV AFTER MEDS AND BLOOD DRAWS; Start 01/27/19 at 09:30; Stop 02/03/19 at 09:09; Status DC Ibuprofen (Motrin) 400 mg PRN Q6HRS PRN PO MILD PAIN 1-3; Start 01/27/19 at 09:30 Naloxone HCl (Narcan) 0.4 mg PRN Q2MIN PRN IV SEE INSTRUCTIONS; Start 01/27/19 at 09:30; Stop 01/31/19 at 09:15; Status DC Sodium Chloride 1,000 ml @ 25 mls/hr Q24H IV ; Start 01/27/19 at 09:28; Stop 01/30/19 at 14:52; Status DC Ondansetron HCl (Zofran) 4 mg PRN Q6HRS PRN IV Nausea, 2nd Choice; Start 01/27/19 at 09:30; Status Cancel Epinephrine HCl (EPINEPHrine SYRINGE) 1 mg STK-MED ONCE .ROUTE ; Start 01/27/19 at 10:15; Stop 01/27/19 at 10:16; Status DC Lidocaine HCl (Lidocaine Pf 2% Vial) 5 ml STK-MED ONCE .ROUTE ; Start 01/27/19 at 10:15; Stop 01/27/19 at 10:16; Status DC Ropivacaine (Naropin 0.5%) 20 ml STK-MED ONCE .ROUTE ; Start 01/27/19 at 10:17; Stop 01/27/19 at 10:18; Status DC Cellulose (Surgicel Hemostat 4x8) 1 each STK-MED ONCE .ROUTE Last administered on 01/27/19at 11:25; Start 01/27/19 at 11:24; Stop 01/27/19 at 11:25; Status DC Cellulose (Surgicel Hemostat 4x8) 1 each STK-MED ONCE .ROUTE Last administered on 01/27/19at 11:39; Start 01/27/19 at 11:38; Stop 01/27/19 at 11:38; Status DC Rocuronium Smoot (Zemuron) 50 mg STK-MED ONCE .ROUTE ; Start 01/27/19 at 12:09; Stop 01/27/19 at 12:09; Status DC Cefoxitin Sodium (Mefoxin) 2 gm 1X ONCE IVP Last administered on 01/27/19at 12:33; Start 01/27/19 at 12:30; Stop 01/27/19 at 12:31; Status DC Phenylephrine HCl (Bret-Synephrine Inj) 10 mg STK-MED ONCE .ROUTE ; Start 01/27/19 at 14:49; Stop 01/27/19 at 14:49; Status DC Sodium Chloride 35 ml/Fentanyl Citrate 250 mcg/ Ropivacaine 10 ml/ Epidural Dosage Infused (Pha) 50 ml @ 0 mls/hr CONT EPID ; Start 01/27/19 at 15:00; Status UNV Sodium Chloride 35 ml/Fentanyl Citrate 250 mcg/ Ropivacaine 10 ml/ Epidural Dosage Infused (Pha) 50 ml @ 0 mls/hr CONT PRN EPID SEE PROTOCOL TABLE Last administered on 01/28/19at 05:00; Start 01/27/19 at 15:00; Stop 01/28/19 at 08:11; Status DC Cefoxitin Sodium (Mefoxin) 2 gm 1X PREOP PRN IVP SURGERY Last administered on 01/27/19at 16:47; Start 01/27/19 at 15:15; Stop 01/28/19 at 10:13; Status DC Famotidine (Pepcid Vial) 20 mg BID IVP Last administered on 02/09/19at 20:28; Start 01/27/19 at 21:00 Enoxaparin Sodium (Lovenox 40mg Syringe) 40 mg Q24H SQ Last administered on 01/29/19at 12:24; Start 01/28/19 at 09:00; Stop 01/29/19 at 17:14; Status DC Sodium Chloride (Normal Saline Flush) 3 ml QSHIFT PRN IV AFTER MEDS AND BLOOD DRAWS; Start 01/27/19 at 15:45 Ringer's Solution 1,000 ml @ 100 mls/hr Q10H IV Last administered on 01/30/19at 03:20; Start 01/27/19 at 15:33; Stop 01/30/19 at 14:52; Status DC Naloxone HCl (Narcan) 0.4 mg PRN Q2MIN PRN IV SEE INSTRUCTIONS; Start 01/27/19 at 15:45 Sodium Chloride 1,000 ml @ 25 mls/hr Q24H IV ; Start 01/27/19 at 15:33; Stop 01/28/19 at 15:52; Status DC Ondansetron HCl (Zofran) 4 mg PRN Q6HRS PRN IV NAUESA, 1ST CHOICE Last administered on 02/01/19at 23:49; Start 01/27/19 at 15:45 Sodium Chloride 35 ml/Fentanyl Citrate 250 mcg/ Ropivacaine 10 ml/ Epidural Dosage Infused (Pha) 50 ml @ 0 mls/hr CONT PRN EPID SEE PROTOCOL TABLE Last administered on 02/01/19at 08:00; Start 01/28/19 at 08:15; Stop 02/01/19 at 10:03; Status DC Throat Lozenges (Cepacol Sore Throat Lozenge) 1 karthikeyan PRN Q2HRS PRN PO SORE THROAT Last administered on 01/28/19at 10:49; Start 01/28/19 at 09:30 Lorazepam (Ativan Inj) 0.5 mg PRN Q6HRS PRN IV ANXIETY AGITATION, 1ST CHOICE Last administered on 01/31/19at 21:13; Start 01/28/19 at 12:30; Stop 02/06/19 at 10:42; Status DC Thiamine HCl 100 mg DAILY IM Last administered on 01/30/19at 09:12; Start 01/28/19 at 13:00; Stop 01/31/19 at 11:44; Status DC Lorazepam (Ativan Inj) 2 mg PRN Q1HR PRN IV For CIWA 8-14 Last administered on 02/06/19at 03:27; Start 01/28/19 at 13:00; Stop 02/06/19 at 10:42; Status DC Lorazepam (Ativan Inj) 4 mg PRN Q1HR PRN IV For CIWA 15 or greater; Start 01/28/19 at 13:00; Stop 02/06/19 at 10:42; Status DC Haloperidol Lactate (Haldol Inj) 5 mg PRN Q4HRS PRN IVP Hallucinatn s,Confusn,Delirium Last administered on 02/06/19at 21:35; Start 01/28/19 at 13:00 Diphenhydramine HCl (Benadryl) 25 mg PRN Q15MIN PRN IVP EPS symptoms 2'Haldol admin; Start 01/28/19 at 13:00 Lorazepam (Ativan Inj) 2 mg PRN Q15MIN PRN IV SEE COMMENTS Last administered on 02/05/19at 01:12; Start 01/28/19 at 13:00; Stop 02/06/19 at 10:42; Status DC Lorazepam (Ativan Inj) 4 mg PRN Q15MIN PRN IV SEE COMMENTS Last administered on 02/05/19at 02:29; Start 01/28/19 at 13:00; Stop 02/06/19 at 10:42; Status DC Albuterol/ Ipratropium (Duoneb) 3 ml RTQID NEB Last administered on 02/10/19at 07:25; Start 01/28/19 at 13:00 Non-Formulary Medication (Fluticasone/ Umeclidin/ Vilanter (Trelegy Ellipta 100-62.5-25)) 1 puff DAILY PO ; Start 01/29/19 at 09:00; Status UNV Budesonide (Pulmicort) 0.5 mg RTBID NEB Last administered on 02/10/19at 07:25; Start 01/28/19 at 20:00 Albuterol Sulfate (Ventolin Neb Soln) 2.5 mg PRN Q6HRS PRN INH SHORTNESS OF BREATH; Start 01/28/19 at 14:00 Lorazepam (Ativan) 1 mg PRN Q6HRS PRN PO ANXIETY / AGITATION Last administered on 02/04/19at 12:07; Start 01/28/19 at 14:00; Stop 02/04/19 at 12:58; Status DC Pantoprazole Sodium (Protonix) 40 mg DAILYAC PO Last administered on 02/08/19at 09:40; Start 01/28/19 at 16:30 Metoprolol Tartrate (Lopressor Vial) 12.5 mg BID IVP ; Start 01/29/19 at 21:00; Stop 01/29/19 at 14:50; Status DC Metoprolol Tartrate (Lopressor) 12.5 mg BID PO Last administered on 02/08/19at 22:03; Start 01/29/19 at 17:00 Amino Acids/ Glycerin/ Electrolytes 1,000 ml @ 75 mls/hr [id number] IV Last administered on 02/02/19at 18:20; Start 01/30/19 at 11:30; Stop 02/02/19 at 21:59; Status DC Acetaminophen (Tylenol) 650 mg PRN Q6HRS PRN PO fever Last administered on 02/01/19at 08:45; Start 01/31/19 at 01:15 Thiamine Mononitrate (Vitamin B-1) 100 mg DAILY PO Last administered on 02/08/19at 09:40; Start 01/31/19 at 12:30 Heparin Sodium (Porcine) (Heparin Sodium) 5,000 unit Q12HR SQ Last administered on 02/09/19at 20:28; Start 01/31/19 at 14:00 Piperacillin Sod/ Tazobactam Sod 3.375 gm/Sodium Chloride 50 ml @ 100 mls/hr Q6HRS IV Last administered on 02/04/19at 05:58; Start 02/01/19 at 10:00; Stop 02/04/19 at 06:32; Status DC Linezolid/Dextrose 300 ml @ 300 mls/hr Q12HR IV Last administered on 02/03/19at 21:30; Start 02/01/19 at 10:00; Stop 02/04/19 at 06:32; Status DC Micafungin Sodium 100 mg/Dextrose 100 ml @ 100 mls/hr Q24H IV Last administered on 02/08/19at 10:27; Start 02/01/19 at 11:00; Stop 02/08/19 at 12:04; Status DC Sodium Chloride 35 ml/Fentanyl Citrate 250 mcg/ Ropivacaine 10 ml/ Epidural Dosage Infused (Pha) 50 ml @ 0 mls/hr CONT PRN EPID SEE PROTOCOL TABLE Last administered on 02/01/19at 11:16; Start 02/01/19 at 10:15; Stop 02/04/19 at 09:09; Status DC Fentanyl Citrate (Fentanyl 2ml Vial) 25 mcg PRN Q5MIN PRN IV MILD PAIN 1-3; St art 02/01/19 at 14:00; Stop 02/02/19 at 13:59; Status DC Fentanyl Citrate (Fentanyl 2ml Vial) 50 mcg PRN Q5MIN PRN IV MODERATE TO SEVERE PAIN Last administered on 02/02/19at 09:09; Start 02/01/19 at 14:00; Stop 02/02/19 at 13:59; Status DC Hydromorphone HCl (Dilaudid) 1 mg PRN Q2HR PRN IV PAIN Last administered on 02/06/19at 09:11; Start 02/01/19 at 16:30; Stop 02/06/19 at 10:42; Status DC Ketorolac Tromethamine (Toradol 30mg Vial) 30 mg 1X ONCE IV Last administered on 02/01/19at 16:43; Start 02/01/19 at 16:30; Stop 02/01/19 at 16:31; Status DC Sodium Chloride 500 ml @ 500 mls/hr 1X ONCE IV Last administered on 02/02/19at 05:37; Start 02/02/19 at 05:30; Stop 02/02/19 at 06:29; Status DC Hydromorphone HCl 30 ml @ 0 mls/hr CONT PRN PRN IV PER PROTOCOL Last administered on 02/02/19at 10:32; Start 02/02/19 at 09:00; Stop 02/04/19 at 09:09; Status DC Info (Tpn Per Pharmacy) 1 each PRN DAILY PRN MC SEE COMMENTS Last administered on 02/09/19at 14:11; Start 02/02/19 at 10:00 Sodium Phosphate 20 mmol/Dextrose 256.6667 ml @ 64.167 m... 1X ONCE IV Last administered on 02/02/19at 14:38; Start 02/02/19 at 11:00; Stop 02/02/19 at 14:59; Status DC Furosemide (Lasix) 20 mg 1X ONCE IVP Last administered on 02/02/19at 16:16; Start 02/02/19 at 16:00; Stop 02/02/19 at 16:01; Status DC Lidocaine/Sodium Bicarbonate (Buffered Lidocaine 1%) 3 ml 1X ONCE INJ ; Start 02/02/19 at 14:00; Stop 02/02/19 at 14:05; Status DC Sodium Chloride 80 meq/Potassium Chloride 40 meq/ Sodium Phosphate 13.6 mmol/ Magnesium Sulfate 10 meq/Calcium Gluconate 10 meq/ Multivitamins 10 ml/Chromium/ Copper/Manganese/ Seleni/Zn 1 ml/ Total Parenteral Nutrition/Amino Acids/ Dextrose/ Fat Emulsion Intravenous 1,512 ml @ 63 mls/hr TPN CONT IV Last administered on 02/02/19at 21:50; Start 02/02/19 at 22:00; Stop 02/03/19 at 21:59; Status DC Potassium Phosphate 15 mmol/ Sodium Chloride 255 ml @ 127.5 mls/ hr 1X ONCE IV Last administered on 02/03/19at 11:35; Start 02/03/19 at 11:00; Stop 02/03/19 at 12:59; Status DC Potassium Chloride (Klor-Con) 40 meq 1X ONCE PO Last administered on 02/03/19at 21:30; Start 02/03/19 at 11:30; Stop 02/03/19 at 11:31; Status DC Sodium Chloride 120 meq/Potassium Chloride 50 meq/ Sodium Phosphate 20.4 mmol/ Magnesium Sulfate 10 meq/Calcium Gluconate 10 meq/ Multivitamins 10 ml/Chromium/ Copper/Manganese/ Seleni/Zn 1 ml/ Total Parenteral Nutrition/Amino Acids/Dextrose/ Fat Emulsion Intravenous 1,512 ml @ 63 mls/hr TPN CONT IV Last administered on 02/03/19at 21:30; Start 02/03/19 at 22:00; Stop 02/04/19 at 21:59; Status DC Potassium Chloride (Klor-Con) 40 meq 1X ONCE PO Last administered on 02/03/19at 21:31; Start 02/03/19 at 21:00; Stop 02/03/19 at 21:01; Status DC Meropenem 500 mg/ Sodium Chloride 50 ml @ 100 mls/hr Q6HRS IV Last administered on 02/08/19at 05:55; Start 02/04/19 at 07:00; Stop 02/08/19 at 12:04; Status DC Oxycodone/ Acetaminophen (Percocet 5/325) 1 tab PRN Q4HRS PRN PO MODERATE TO SEVERE PAIN Last administered on 02/10/19at 05:24; Start 02/04/19 at 09:15 Docusate Sodium (Colace) 100 mg DAILY PO Last administered on 02/05/19at 09:13; Start 02/04/19 at 10:00 Iohexol (Omnipaque 350 Mg/ml) 75 ml 1X ONCE IV Last administered on 02/04/19at 12:30; Start 02/04/19 at 10:15; Stop 02/04/19 at 10:16; Status DC Info (CONTRAST GIVEN -- Rx MONITORING) 1 each PRN DAILY PRN MC SEE COMMENTS; Start 02/04/19 at 10:15; Stop 02/06/19 at 10:14; Status DC Lorazepam (Ativan) 1 mg PRN Q6HRS PRN PO ANXIETY / AGITATION Last administered on 02/04/19at 18:17; Start 02/04/19 at 13:00; Stop 02/06/19 at 10:42; Status DC Sodium Chloride 120 meq/Sodium Phosphate 24 mmol/ Potassium Chloride 50 meq/ Magnesium Sulfate 13 meq/Calcium Gluconate 10 meq/ Multivitamins 10 ml/Chromium/ Copper/Manganese/ Seleni/Zn 1 ml/ Total Parenteral Nutrition/Amino Acids/Dextrose/ Fat Emulsion Intravenous 1,512 ml @ 63 mls/hr TPN CONT IV Last administered on 02/04/19at 22:20; Start 02/04/19 at 22:00; Stop 02/05/19 at 21:59; Status DC Sodium Phosphate 15 mmol/Dextrose 255 ml @ 63.75 mls/ hr 1X ONCE IV Last administered on 02/04/19at 14:23; Start 02/04/19 at 14:00; Stop 02/04/19 at 17:59; Status DC Lorazepam (Ativan Inj) 2 mg PRN Q4HRS PRN IV ANXIETY/AGITATION (USE 2ND) Last administered on 02/04/19at 20:46; Start 02/04/19 at 20:15; Stop 02/06/19 at 10:42; Status DC Sodium Phosphate 20 mmol/Dextrose 256.6667 ml @ 64.167 m... 1X ONCE IV Last administered on 02/05/19at 12:56; Start 02/05/19 at 12:00; Stop 02/05/19 at 15:59; Status DC Sodium Chloride 120 meq/Sodium Phosphate 27 mmol/ Potassium Chloride 50 meq/ Magnesium Sulfate 13 meq/Calcium Gluconate 10 meq/ Multivitamins 10 ml/Chromium/ Copper/Manganese/ Seleni/Zn 1 ml/ Total Parenteral Nutrition/Amino Acids/Dextrose/ Fat Emulsion Intravenous 1,512 ml @ 63 mls/hr TPN CONT IV Last administered on 02/05/19at 23:33; Start 02/05/19 at 22:00; Stop 02/06/19 at 21:59; Status DC Lorazepam (Ativan Inj) 0.25 mg PRN Q6HRS PRN IV ANXIETY AGITATION, 1ST CHOICE Last administered on 02/10/19at 05:24; Start 02/06/19 at 10:45 Iohexol (Omnipaque 300 Mg/ml) 75 ml 1X ONCE IV Last administered on 02/06/19at 12:38; Start 02/06/19 at 12:00; Stop 02/06/19 at 12:01; Status DC Info (CONTRAST GIVEN -- Rx MONITORING) 1 each PRN DAILY PRN MC SEE COMMENTS; Start 02/06/19 at 11:45; Stop 02/08/19 at 11:44; Status DC Sodium Chloride 100 meq/Sodium Phosphate 20 mmol/ Potassium Chloride 50 meq/ Magnesium Sulfate 13 meq/Calcium Gluconate 10 meq/ Multivitamins 10 ml/Chromium/ Copper/Manganese/ Seleni/Zn 1 ml/ Total Parenteral Nutrition/Amino Acids/Dextrose/ Fat Emulsion Intravenous 1,512 ml @ 63 mls/hr TPN CONT IV Last administered on 02/06/19at 22:05; Start 02/06/19 at 22:00; Stop 02/07/19 at 21:59; Status DC Metronidazole 100 ml @ 100 mls/hr Q6H IV Last administered on 02/08/19at 03:57; Start 02/06/19 at 16:00; Stop 02/08/19 at 12:04; Status DC Hydromorphone HCl (Dilaudid) 1 mg PRN Q2HR PRN IV PAIN Last administered on 02/10/19at 00:12; Start 02/07/19 at 00:00; Stop 02/10/19 at 01:36; Status DC Metoprolol Tartrate (Lopressor Vial) 5 mg PRN Q6HRS PRN IVP hypertension; Start 02/07/19 at 00:00 Sodium Chloride 50 meq/Sodium Phosphate 20 mmol/ Potassium Chloride 50 meq/ Magnesium Sulfate 13 meq/Calcium Gluconate 10 meq/ Multivitamins 10 ml/Chromium/ Copper/Manganese/ Seleni/Zn 1 ml/ Total Parenteral Nutrition/Amino Acids/Dextrose/ Fat Emulsion Intravenous 1,512 ml @ 63 mls/hr TPN CONT IV Last administered on 02/07/19at 23:14; Start 02/07/19 at 22:00; Stop 02/08/19 at 21:59; Status DC Vancomycin HCl (Vancomycin Oral Solution) 125 mg [id number] PO Last administered on 02/10/19at 07:26; Start 02/08/19 at 09:00 Sodium Chloride 20 meq/Sodium Phosphate 20 mmol/ Potassium Chloride 20 meq/ Magnesium Sulfate 13 meq/Calcium Gluconate 10 meq/ Multivitamins 10 ml/Chromium/ Copper/Manganese/ Seleni/Zn 1 ml/ Total Parenteral Nutrition/Amino Acids/Dextrose/ Fat Emulsion Intravenous 1,512 ml @ 63 mls/hr TPN CONT IV Last administered on 02/08/19at 23:52; Start 02/08/19 at 22:00; Stop 02/09/19 at 21:59; Status DC Alprazolam (Xanax) 0.25 mg PRN Q8HRS PRN PO ANXIETY / AGITATION; Start 02/09/19 at 09:30 Quetiapine Fumarate (SEROquel XR) 50 mg DAILY PO ; Start 02/09/19 at 12:45 Sodium Chloride 20 meq/Sodium Phosphate 20 mmol/ Potassium Chloride 10 meq/ Magnesium Sulfate 13 meq/Calcium Gluconate 10 meq/ Multivitamins 10 ml/Chromium/ Copper/Manganese/ Seleni/Zn 1 ml/ Total Parenteral Nutrition/Amino Acids/D extrose/ Fat Emulsion Intravenous 1,512 ml @ 63 mls/hr TPN CONT IV Last administered on 02/09/19at 20:28; Start 02/09/19 at 22:00; Stop 02/10/19 at 21:59 Fentanyl Citrate (Fentanyl 2ml Vial) 100 mcg PRN Q2HR PRN IV PAIN Last administered on 02/10/19at 07:26; Start 02/10/19 at 01:45 Lorazepam (Ativan) 1 mg PRN Q8HRS PRN PO ANXIETY / AGITATION; Start 02/10/19 at 08:15; Status Cancel Lorazepam (Ativan Inj) 1 mg PRN Q8HRS PRN IV ANXIETY / AGITATION Last administered on 02/10/19at 08:16; Start 02/10/19 at 08:15 Active Scripts Active Lactulose 20 Gm/30 Ml Solution 20 Gm PO PRN TID PRN 30 Days Zofran (Ondansetron Hcl) 4 Mg Tablet 1 Tab PO Q6HRS 30 Days Hydrocodone-Apap 5-325 (Hydrocodone Bit/Acetaminophen) 1 Tab Tablet 1 Tab PO PRN Q6HRS PRN 6 Days Pantoprazole Sodium (Pantoprazole Sodium) 40 Mg Tablet.dr 40 Mg PO DAILYAC 30 Days Lorazepam 1 Mg Tablet 1 Mg PO PRN Q6HRS PRN 6 Days Reported Proair Hfa Inhaler (Albuterol Sulfate) 8.5 Gm Hfa.aer.ad 1 Puff INH PRN Q6HRS PRN Trelegy Ellipta 100-62.5-25 (Fluticasone/Umeclidin/Vilanter) 1 Each Blst.w.dev 1 Puff PO DAILY Vitals/I & O Vital Sign - Last 24 Hours 02/09/19 02/09/19 02/09/19 02/09/19 10:58 11:40 11:40 12:21 Temp 96.9 96.9 Pulse 110 Resp 18 B/P (MAP) 122/77 (92) Pulse Ox 96 96 96 O2 Delivery Room Air Room Air Room Air Room Air O2 Flow Rate 95.0 95.0 02/09/19 02/09/19 02/09/19 02/09/19 13:29 14:37 14:37 14:37 Pulse Ox 96 96 96 96 O2 Delivery Room Air Room Air Room Air Room Air O2 Flow Rate 95.0 95.0 95.0 95.0 02/09/19 02/09/19 02/09/19 02/09/19 14:37 15:00 16:03 16:52 Temp 97.2 97.2 Pulse 112 Resp 18 B/P (MAP) 124/68 (86) Pulse Ox 96 96 96 96 O2 Delivery Room Air Room Air Room Air Room Air O2 Flow Rate 95.0 95.0 95.0 02/09/19 02/09/19 02/09/19 02/09/19 18:11 18:11 18:50 19:25 Temp 98.2 98.2 Pulse 124 Resp 10 B/P (MAP) 143/86 (105) Pulse Ox 96 96 95 O2 Delivery Room Air Room Air Room Air Room Air O2 Flow Rate 95.0 95.0 02/09/19 02/09/19 02/09/19 02/09/19 19:25 19:25 19:54 23:25 Temp 98.1 98.1 Pulse 120 Resp 2 2 10 B/P (MAP) Pulse Ox 96 95 O2 Delivery Nasal Cannula Nasal Cannula Room Air Room Air 02/10/19 02/10/19 02/10/19 02/10/19 03:25 04:49 07:00 07:25 Temp 97.9 97.9 97.9 97.9 Pulse 127 110 Resp 11 21 B/P (MAP) 133/85 (101) 139/90 (106) Pulse Ox 96 94 97 O2 Delivery Room Air Room Air Room Air Room Air 02/10/19 02/10/19 07:26 08:07 Pulse Ox 96 97 O2 Delivery Room Air Room Air O2 Flow Rate 95.0 95.0 Intake and Output 02/09/19 02/09/19 02/10/19 15:00 23:00 07:00 Intake Total 80 ml 2784 ml 360 ml Output Total 450 ml 575 ml Balance -370 ml 2784 ml -215 ml CANDIS OLEARY MD Feb 10, 2019 08:51
[2019-02-10] MEDS: HALOPERIDOL LACTATE 5 MG/ML VIAL. IVP PRN ×3 (08:54→23:07)
[2019-02-10] MEDS: FAMOTIDINE 20 MG/2 ML VIAL IVP SCH ×2 (09:00→21:07)
[2019-02-10] MEDS ORDERED: HYDROmorphone 2 MG/ML VIAL IV ONE ×2 (09:00→10:15)
[2019-02-10] MEDS: THIAMINE 100 MG TABLET. PO SCH (09:00)
[2019-02-10] MEDS: QUEtiapine 50 MG TAB.ER.24H. PO SCH ×2 (09:00→16:39)
[2019-02-10] MEDS: DOCUSATE SODIUM 100 MG CAPSULE. PO SCH (09:00)
[2019-02-10] MEDS: HEPARIN for SUB-Q USE 5,000 UNIT/ML VIAL. SQ SCH ×2 (09:00→21:05)
[2019-02-10] MEDS: METOPROLOL TART IMMED RELEASE 25 MG TABLET. PO SCH ×2 (09:00→21:00)
--- NOTE | 2019-02-10 10:28 | PDOC ---
PROGRESS NOTES Assessment Toxic and metabolic encephalopathy, EEG negative for epileptic activity, consistent with encephalopathy (02/06), better Leukocytosis, hypocalcemia, hypophosphatemia, had some hypo-magnesemia, elevated pro-calcitonin levels. Transaminases and bilirubin were normal on 02/03, additional laboratory studies I ordered are normal Plan Hold on lumbar puncture Overall prognosis is poor. Agree with transfer to LTAC Subjective None Objective Vital Signs Date Time Temp Pulse Resp B/P (MAP) Pulse Ox O2 Delivery O2 Flow Rate FiO2 02/10/19 10:01 97 Room Air 95.0 02/10/19 07:00 97.9 110 21 139/90 (106) 97.9 Intake and Output 02/10/19 07:00 Intake Total 3224 ml Output Total 1025 ml Balance 2199 ml Intake Oral 440 ml IV Total 2784 ml Output Urine Total 200 ml Drainage Total 825 ml PHYSICAL EXAM Opens eyes to voice, Follows commands, knows name and hospital, not date. Tries to get out of bed. PERRL. EOMI. CN: no focal findings. Muscle tone: normal. Muscle strength: 4/5 DTR: 2+ Plantar reflex: Flexor Gait: not examined, but she stood on her own at side of bed Sensory exam: intact.. No cerebellar signs noted Review of Relevant I have reviewed the following items dante (where applicable) has been applied. Labs Laboratory Tests Test 02/08/19 13:03 02/09/19 04:58 02/10/19 00:36 02/10/19 05:30 Glucose (Fingerstick) 137 mg/dL (70-99) 160 mg/dL (70-99) Sodium Level 137 mmol/L (136-145) 133 mmol/L (136-145) Potassium Level 4.9 mmol/L (3.5-5.1) 5.0 mmol/L (3.5-5.1) Chloride Level 108 mmol/L (98-107) 104 mmol/L (98-107) Carbon Dioxide Level 25 mmol/L (21-32) 23 mmol/L (21-32) Anion Gap 4 (6-14) 6 (6-14) Blood Urea Nitrogen 23 mg/dL (7-20) 27 mg/dL (7-20) Creatinine 0.6 mg/dL (0.6-1.0) 0.7 mg/dL (0.6-1.0) Estimated GFR (Cockcroft-Gault) 102.7 85.9 Glucose Level 139 mg/dL (70-99) 135 mg/dL (70-99) Calcium Level 7.8 mg/dL (8.5-10.1) 8.1 mg/dL (8.5-10.1) BUN/Creatinine Ratio 39 (6-20) Total Bilirubin 0.7 mg/dL (0.2-1.0) Aspartate Amino Transf (AST/SGOT) 50 U/L (15-37) Alanine Aminotransferase (ALT/SGPT) 31 U/L (14-59) Alkaline Phosphatase 206 U/L (46-116) Total Protein 5.5 g/dL (6.4-8.2) Albumin 1.4 g/dL (3.4-5.0) Albumin/Globulin Ratio 0.3 (1.0-1.7) Triglycerides Level 42 mg/dL (0-150) Laboratory Tests Test 02/10/19 00:36 02/10/19 05:30 Glucose (Fingerstick) 160 mg/dL (70-99) Sodium Level 133 mmol/L (136-145) Potassium Level 5.0 mmol/L (3.5-5.1) Chloride Level 104 mmol/L (98-107) Carbon Dioxide Level 23 mmol/L (21-32) Anion Gap 6 (6-14) Blood Urea Nitrogen 27 mg/dL (7-20) Creatinine 0.7 mg/dL (0.6-1.0) Estimated GFR (Cockcroft-Gault) 85.9 BUN/Creatinine Ratio 39 (6-20) Glucose Level 135 mg/dL (70-99) Calcium Level 8.1 mg/dL (8.5-10.1) Total Bilirubin 0.7 mg/dL (0.2-1.0) Aspartate Amino Transf (AST/SGOT) 50 U/L (15-37) Alanine Aminotransferase (ALT/SGPT) 31 U/L (14-59) Alkaline Phosphatase 206 U/L (46-116) Total Protein 5.5 g/dL (6.4-8.2) Albumin 1.4 g/dL (3.4-5.0) Albumin/Globulin Ratio 0.3 (1.0-1.7) Triglycerides Level 42 mg/dL (0-150) Microbiology 02/01/19 Urine Culture - Final, Complete 02/01/19 Urine Culture Result 1 ([facility]) - Final, Complete 02/01/19 Blood Culture - Final, Complete NO GROWTH AFTER 5 DAYS Medications Current Medications Ondansetron HCl (Zofran) 4 mg PRN Q6HRS PRN IV NAUSEA/VOMITING; Start 01/27/19 at 07:00; Stop 01/28/19 at 06:59; Status DC Fentanyl Citrate (Fentanyl 2ml Vial) 25 mcg PRN Q5MIN PRN IV MILD PAIN 1-3; Start 01/27/19 at 07:00; Stop 01/28/19 at 06:59; Status DC Fentanyl Citrate (Fentanyl 2ml Vial) 50 mcg PRN Q5MIN PRN IV MODERATE TO SEVERE PAIN; Start 01/27/19 at 07:00; Stop 01/28/19 at 06:59; Status DC Morphine Sulfate (Morphine Sulfate) 1 mg PRN Q10MIN PRN IV SEVERE PAIN 7-10; Start 01/27/19 at 07:00; Stop 01/28/19 at 06:59; Status DC Ringer's Solution 1,000 ml @ 30 mls/hr Q24H IV Last administered on 01/27/19at 08:15; Start 01/27/19 at 07:00; Stop 01/27/19 at 18:59; Status DC Hydromorphone HCl (Dilaudid) 0.5 mg PRN Q10MIN PRN IV SEV PAIN, Second choice; Start 01/27/19 at 07:00; Stop 01/28/19 at 06:59; Status DC Prochlorperazine Edisylate (Compazine) 5 mg PACU PRN PRN IV NAUSEA, MRX1 Last administered on 01/28/19at 03:33; Start 01/27/19 at 07:00; Stop 01/28/19 at 06:59; Status DC Cefoxitin Sodium (Mefoxin) 2 gm 1X PREOP PRN IVP SURGERY Last administered on 01/27/19at 12:18; Start 01/27/19 at 06:00; Stop 01/28/19 at 10:13; Status DC Sevoflurane (Ultane) 90 ml STK-MED ONCE IH ; Start 01/27/19 at 09:11; Stop 01/27/19 at 09:11; Status DC Rocuronium Friendship (Zemuron) 50 mg STK-MED ONCE .ROUTE ; Start 01/27/19 at 09:11; Stop 01/27/19 at 09:11; Status DC Fentanyl Citrate (Fentanyl 2ml Vial) 100 mcg STK-MED ONCE .ROUTE ; Start 01/27/19 at 09:11; Stop 01/27/19 at 09:11; Status DC Neostigmine Methylsulfate (Neostigmine Methylsulfate) 5 mg STK-MED ONCE .ROUTE ; Start 01/27/19 at 09:11; Stop 01/27/19 at 09:11; Status DC Midazolam HCl (Versed) 2 mg STK-MED ONCE .ROUTE ; Start 01/27/19 at 09:11; Stop 01/27/19 at 09:11; Status DC Glycopyrrolate (Robinul) 1 mg STK-MED ONCE .ROUTE ; Start 01/27/19 at 09:11; Stop 01/27/19 at 09:11; Status DC Phenylephrine HCl (Bret-Synephrine Inj) 10 mg STK-MED ONCE .ROUTE ; Start 01/27/19 at 09:11; Stop 01/27/19 at 09:12; Status DC Dexamethasone Sodium Phosphate (Decadron) 4 mg STK-MED ONCE .ROUTE ; Start 01/27/19 at 09:11; Stop 01/27/19 at 09:12; Status DC Ondansetron HCl (Zofran) 4 mg STK-MED ONCE .ROUTE ; Start 01/27/19 at 09:12; Stop 01/27/19 at 09:12; Status DC Lidocaine HCl (Lidocaine Pf 2% Vial) 5 ml STK-MED ONCE .ROUTE ; Start 01/27/19 at 09:12; Stop 01/27/19 at 09:12; Status DC Propofol 20 ml @ As Directed STK-MED ONCE IV ; Start 01/27/19 at 09:12; Stop 01/27/19 at 09:12; Status DC Sodium Chloride (Normal Saline Flush) 3 ml QSHIFT PRN IV AFTER MEDS AND BLOOD DRAWS; Start 01/27/19 at 09:30; Stop 02/03/19 at 09:09; Status DC Ibuprofen (Motrin) 400 mg PRN Q6HRS PRN PO MILD PAIN 1-3; Start 01/27/19 at 09:30 Naloxone HCl (Narcan) 0.4 mg PRN Q2MIN PRN IV SEE INSTRUCTIONS; Start 01/27/19 at 09:30; Stop 01/31/19 at 09:15; Status DC Sodium Chloride 1,000 ml @ 25 mls/hr Q24H IV ; Start 01/27/19 at 09:28; Stop 01/30/19 at 14:52; Status DC Ondansetron HCl (Zofran) 4 mg PRN Q6HRS PRN IV Nausea, 2nd Choice; Start 01/27/19 at 09:30; Status Cancel Epinephrine HCl (EPINEPHrine SYRINGE) 1 mg STK-MED ONCE .ROUTE ; Start 01/27/19 at 10:15; Stop 01/27/19 at 10:16; Status DC Lidocaine HCl (Lidocaine Pf 2% Vial) 5 ml STK-MED ONCE .ROUTE ; Start 01/27/19 at 10:15; Stop 01/27/19 at 10:16; Status DC Ropivacaine (Naropin 0.5%) 20 ml STK-MED ONCE .ROUTE ; Start 01/27/19 at 10:17; Stop 01/27/19 at 10:18; Status DC Cellulose (Surgicel Hemostat 4x8) 1 each STK-MED ONCE .ROUTE Last administered on 01/27/19at 11:25; Start 01/27/19 at 11:24; Stop 01/27/19 at 11:25; Status DC Cellulose (Surgicel Hemostat 4x8) 1 each STK-MED ONCE .ROUTE Last administered on 01/27/19at 11:39; Start 01/27/19 at 11:38; Stop 01/27/19 at 11:38; Status DC Rocuronium Friendship (Zemuron) 50 mg STK-MED ONCE .ROUTE ; Start 01/27/19 at 12:09; Stop 01/27/19 at 12:09; Status DC Cefoxitin Sodium (Mefoxin) 2 gm 1X ONCE IVP Last administered on 01/27/19at 12:33; Start 01/27/19 at 12:30; Stop 01/27/19 at 12:31; Status DC Phenylephrine HCl (Bret-Synephrine Inj) 10 mg STK-MED ONCE .ROUTE ; Start 01/27/19 at 14:49; Stop 01/27/19 at 14:49; Status DC Sodium Chloride 35 ml/Fentanyl Citrate 250 mcg/ Ropivacaine 10 ml/ Epidural Dosage Infused (Pha) 50 ml @ 0 mls/hr CONT EPID ; Start 01/27/19 at 15:00; Status UNV Sodium Chloride 35 ml/Fentanyl Citrate 250 mcg/ Ropivacaine 10 ml/ Epidural Dosage Infused (Pha) 50 ml @ 0 mls/hr CONT PRN EPID SEE PROTOCOL TABLE Last administered on 01/28/19at 05:00; Start 01/27/19 at 15:00; Stop 01/28/19 at 08:11; Status DC Cefoxitin Sodium (Mefoxin) 2 gm 1X PREOP PRN IVP SURGERY Last administered on 01/27/19at 16:47; Start 01/27/19 at 15:15; Stop 01/28/19 at 10:13; Status DC Famotidine (Pepcid Vial) 20 mg BID IVP Last administered on 02/09/19at 20:28; Start 01/27/19 at 21:00 Enoxaparin Sodium (Lovenox 40mg Syringe) 40 mg Q24H SQ Last administered on 01/29/19at 12:24; Start 01/28/19 at 09:00; Stop 01/29/19 at 17:14; Status DC Sodium Chloride (Normal Saline Flush) 3 ml QSHIFT PRN IV AFTER MEDS AND BLOOD DRAWS; Start 01/27/19 at 15:45 Ringer's Solution 1,000 ml @ 100 mls/hr Q10H IV Last administered on 01/30/19at 03:20; Start 01/27/19 at 15:33; Stop 01/30/19 at 14:52; Status DC Naloxone HCl (Narcan) 0.4 mg PRN Q2MIN PRN IV SEE INSTRUCTIONS; Start 01/27/19 at 15:45 Sodium Chloride 1,000 ml @ 25 mls/hr Q24H IV ; Start 01/27/19 at 15:33; Stop 01/28/19 at 15:52; Status DC Ondansetron HCl (Zofran) 4 mg PRN Q6HRS PRN IV NAUESA, 1ST CHOICE Last administered on 02/01/19at 23:49; Start 01/27/19 at 15:45 Sodium Chloride 35 ml/Fentanyl Citrate 250 mcg/ Ropivacaine 10 ml/ Epidural Dosage Infused (Pha) 50 ml @ 0 mls/hr CONT PRN EPID SEE PROTOCOL TABLE Last administered on 02/01/19at 08:00; Start 01/28/19 at 08:15; Stop 02/01/19 at 10:03; Status DC Throat Lozenges (Cepacol Sore Throat Lozenge) 1 karthikeyan PRN Q2HRS PRN PO SORE THROAT Last administered on 01/28/19at 10:49; Start 01/28/19 at 09:30 Lorazepam (Ativan Inj) 0.5 mg PRN Q6HRS PRN IV ANXIETY AGITATION, 1ST CHOICE Last administered on 01/31/19at 21:13; Start 01/28/19 at 12:30; Stop 02/06/19 at 10:42; Status DC Thiamine HCl 100 mg DAILY IM Last administered on 01/30/19at 09:12; Start 01/28/19 at 13:00; Stop 01/31/19 at 11:44; Status DC Lorazepam (Ativan Inj) 2 mg PRN Q1HR PRN IV For CIWA 8-14 Last administered on 02/06/19at 03:27; Start 01/28/19 at 13:00; Stop 02/06/19 at 10:42; Status DC Lorazepam (Ativan Inj) 4 mg PRN Q1HR PRN IV For CIWA 15 or greater; Start 01/28/19 at 13:00; Stop 02/06/19 at 10:42; Status DC Haloperidol Lactate (Haldol Inj) 5 mg PRN Q4HRS PRN IVP Hallucinatns,Confusn,Delirium Last administered on 02/06/19at 21:35; Start 01/28/19 at 13:00 Diphenhydramine HCl (Benadryl) 25 mg PRN Q15MIN PRN IVP EPS symptoms 2'Haldol admin; Start 01/28/19 at 13:00 Lorazepam (Ativan Inj) 2 mg PRN Q15MIN PRN IV SEE COMMENTS Last administered on 02/05/19at 01:12; Start 01/28/19 at 13:00; Stop 02/06/19 at 10:42; Status DC Lorazepam (Ativan Inj) 4 mg PRN Q15MIN PRN IV SEE COMMENTS Last administered on 02/05/19 02:29; Start 01/28/19 at 13:00; Stop 02/06/19 at 10:42; Status DC Albuterol/ Ipratropium (Duoneb) 3 ml RTQID NEB Last administered on 02/10/19at 07:25; Start 01/28/19 at 13:00 Non-Formulary Medication (Fluticasone/ Umeclidin/ Vilanter (Trelegy Ellipta 100-62.5-25)) 1 puff DAILY PO ; Start 01/29/19 at 09:00; Status UNV Budesonide (Pulmicort) 0.5 mg RTBID NEB Last administered on 02/10/19 07:25; Start 01/28/19 at 20:00 Albuterol Sulfate (Ventolin Neb Soln) 2.5 mg PRN Q6HRS PRN INH SHORTNESS OF BREATH; Start 01/28/19 at 14:00 Lorazepam (Ativan) 1 mg PRN Q6HRS PRN PO ANXIETY / AGITATION Last administered on 02/04/19at 12:07; Start 01/28/19 at 14:00; Stop 02/04/19 at 12:58; Status DC Pantoprazole Sodium (Protonix) 40 mg DAILYAC PO Last administered on 02/08/19at 09:40; Start 01/28/19 at 16:30 Metoprolol Tartrate (Lopressor Vial) 12.5 mg BID IVP ; Start 01/29/19 at 21:00; Stop 01/29/19 at 14:50; Status DC Metoprolol Tartrate (Lopressor) 12.5 mg BID PO Last administered on 02/08/19at 22:03; Start 01/29/19 at 17:00 Amino Acids/ Glycerin/ Electrolytes 1,000 ml @ 75 mls/hr [id number] IV Last administered on 02/02/19at 18:20; Start 01/30/19 at 11:30; Stop 02/02/19 at 21:59; Status DC Acetaminophen (Tylenol) 650 mg PRN Q6HRS PRN PO fever Last administered on 02/01/19at 08:45; Start 01/31/19 at 01:15 Thiamine Mononitrate (Vitamin B-1) 100 mg DAILY PO Last administered on 02/08/19at 09:40; Start 01/31/19 at 12:30 Heparin Sodium (Porcine) (Heparin Sodium) 5,000 unit Q12HR SQ Last administered on 02/09/19at 20:28; Start 01/31/19 at 14:00 Piperacillin Sod/ Tazobactam Sod 3.375 gm/Sodium Chloride 50 ml @ 100 mls/hr Q6HRS IV Last administered on 02/04/19at 05:58; Start 02/01/19 at 10:00; Stop 02/04/19 at 06:32; Status DC Linezolid/Dextrose 300 ml @ 300 mls/hr Q12HR IV Last administered on 02/03/19at 21:30; Start 02/01/19 at 10:00; Stop 02/04/19 at 06:32; Status DC Micafungin Sodium 100 mg/Dextrose 100 ml @ 100 mls/hr Q24H IV Last administered on 02/08/19at 10:27; Start 02/01/19 at 11:00; Stop 02/08/19 at 12:04; Status DC Sodium Chloride 35 ml/Fentanyl Citrate 250 mcg/ Ropivacaine 10 ml/ Epidural Dosage Infused (Pha) 50 ml @ 0 mls/hr CONT PRN EPID SEE PROTOCOL TABLE Last administered on 02/01/19at 11:16; Start 02/01/19 at 10:15; Stop 02/04/19 at 09:09; Status DC Fentanyl Citrate (Fentanyl 2ml Vial) 25 mcg PRN Q5MIN PRN IV MILD PAIN 1-3; Start 02/01/19 at 14:00; Stop 02/02/19 at 13:59; Status DC Fentanyl Citrate (Fentanyl 2ml Vial) 50 mcg PRN Q5MIN PRN IV MODERATE TO SEVERE PAIN Last administered on 02/02/19at 09:09; Start 02/01/19 at 14:00; Stop 02/02/19 at 13:59; Status DC Hydromorphone HCl (Dilaudid) 1 mg PRN Q2HR PRN IV PAIN Last administered on 02/06/19at 09:11; Start 02/01/19 at 16:30; Stop 02/06/19 at 10:42; Status DC Ketorolac Tromethamine (Toradol 30mg Vial) 30 mg 1X ONCE IV Last administered on 02/01/19at 16:43; Start 02/01/19 at 16:30; Stop 02/01/19 at 16:31; Status DC Sodium Chloride 500 ml @ 500 mls/hr 1X ONCE IV Last administered on 02/02/19at 05:37; Start 02/02/19 at 05:30; Stop 02/02/19 at 06:29; Status DC Hydromorphone HCl 30 ml @ 0 mls/hr CONT PRN PRN IV PER PROTOCOL Last administered on 02/02/19at 10:32; Start 02/02/19 at 09:00; Stop 02/04/19 at 09:09; Status DC Info (Tpn Per Pharmacy) 1 each PRN DAILY PRN MC SEE COMMENTS Last administered on 02/09/19at 14:11; Start 02/02/19 at 10:00 Sodium Phosphate 20 mmol/Dextrose 256.6667 ml @ 64.167 m... 1X ONCE IV Last administered on 02/02/19at 14:38; Start 02/02/19 at 11:00; Stop 02/02/19 at 14:59; Status DC Furosemide (Lasix) 20 mg 1X ONCE IVP Last administered on 02/02/19at 16:16; Start 02/02/19 at 16:00; Stop 02/02/19 at 16:01; Status DC Lidocaine/Sodium Bicarbonate (Buffered Lidocaine 1%) 3 ml 1X ONCE INJ ; Start 02/02/19 at 14:00; Stop 02/02/19 at 14:05; Status DC Sodium Chloride 80 meq/Potassium Chloride 40 meq/ Sodium Phosphate 13.6 mmol/ Magnesium Sulfate 10 meq/Calcium Gluconate 10 meq/ Multivitamins 10 ml/Chromium/ Copper/Manganese/ Seleni/Zn 1 ml/ Total Parenteral Nutrition/Amino Acids/Dextrose/ Fat Emulsion Intravenous 1,512 ml @ 63 mls/hr TPN CONT IV Last administered on 02/02/19at 21:50; Start 02/02/19 at 22:00; Stop 02/03/19 at 21:59; Status DC Potassium Phosphate 15 mmol/ Sodium Chloride 255 ml @ 127.5 mls/ hr 1X ONCE IV Last administered on 02/03/19at 11:35; Start 02/03/19 at 11:00; Stop 02/03/19 at 12:59; Status DC Potassium Chloride (Klor-Con) 40 meq 1X ONCE PO Last administered on 02/03/19at 21:30; Start 02/03/19 at 11:30; Stop 02/03/19 at 11:31; Status DC Sodium Chloride 120 meq/Potassium Chloride 50 meq/ Sodium Phosphate 20.4 mmol/ Magnesium Sulfate 10 meq/Calcium Gluconate 10 meq/ Multivitamins 10 ml/Chromium/ Copper/Manganese/ Seleni/Zn 1 ml/ Total Parenteral Nutrition/Amino Acids/Dextrose/ Fat Emulsion Intravenous 1,512 ml @ 63 mls/hr TPN CONT IV Last administered on 02/03/19at 21:30; Start 02/03/19 at 22:00; Stop 02/04/19 at 21:59; Status DC Potassium Chloride (Klor-Con) 40 meq 1X ONCE PO Last administered on 02/03/19at 21:31; Start 02/03/19 at 21:00; Stop 02/03/19 at 21:01; Status DC Meropenem 500 mg/ Sodium Chloride 50 ml @ 100 mls/hr Q6HRS IV Last administered on 02/08/19at 05:55; Start 02/04/19 at 07:00; Stop 02/08/19 at 12:04; Status DC Oxycodone/ Acetaminophen (Percocet 5/325) 1 tab PRN Q4HRS PRN PO MODERATE TO SEVERE PAIN Last administered on 02/10/19at 05:24; Start 02/04/19 at 09:15 Docusate Sodium (Colace) 100 mg DAILY PO Last administered on 02/05/19at 09:13; Start 02/04/19 at 10:00 Iohexol (Omnipaque 350 Mg/ml) 75 ml 1X ONCE IV Last administered on 02/04/19at 12:30; Start 02/04/19 at 10:15; Stop 02/04/19 at 10:16; Status DC Info (CONTRAST GIVEN -- Rx MONITORING) 1 each PRN DAILY PRN MC SEE COMMENTS; Start 02/04/19 at 10:15; Stop 02/06/19 at 10:14; Status DC Lorazepam (Ativan) 1 mg PRN Q6HRS PRN PO ANXIETY / AGITATION Last administered on 02/04/19at 18:17; Start 02/04/19 at 13:00; Stop 02/06/19 at 10:42; Status DC Sodium Chloride 120 meq/Sodium Phosphate 24 mmol/ Potassium Chloride 50 meq/ Magnesium Sulfate 13 meq/Calcium Gluconate 10 meq/ Multivitamins 10 ml/Chromium/ Copper/Manganese/ Seleni/Zn 1 ml/ Total Parenteral Nutrition/Amino Acids/Dextrose/ Fat Emulsion Intravenous 1,512 ml @ 63 mls/hr TPN CONT IV Last administered on 02/04/19at 22:20; Start 02/04/19 at 22:00; Stop 02/05/19 at 21:59; Status DC Sodium Phosphate 15 mmol/Dextrose 255 ml @ 63.75 mls/ hr 1X ONCE IV Last administered on 02/04/19at 14:23; Start 02/04/19 at 14:00; Stop 02/04/19 at 17:59; Status DC Lorazepam (Ativan Inj) 2 mg PRN Q4HRS PRN IV ANXIETY/AGITATION (USE 2ND) Last administered on 02/04/19at 20:46; Start 02/04/19 at 20:15; Stop 02/06/19 at 10:42; Status DC Sodium Phosphate 20 mmol/Dextrose 256.6667 ml @ 64.167 m... 1X ONCE IV Last administered on 02/05/19at 12:56; Start 02/05/19 at 12:00; Stop 02/05/19 at 15:59; Status DC Sodium Chloride 120 meq/Sodium Phosphate 27 mmol/ Potassium Chloride 50 meq/ Magnesium Sulfate 13 meq/Calcium Gluconate 10 meq/ Multivitamins 10 ml/Chromium/ Copper/Manganese/ Seleni/Zn 1 ml/ Total Parenteral Nutrition/Amino Acids/Dextrose/ Fat Emulsion Intravenous 1,512 ml @ 63 mls/hr TPN CONT IV Last administered on 02/05/19at 23:33; Start 02/05/19 at 22:00; Stop 02/06/19 at 21:59; Status DC Lorazepam (Ativan Inj) 0.25 mg PRN Q6HRS PRN IV ANXIETY AGITATION, 1ST CHOICE Last administered on 02/10/19at 05:24; Start 02/06/19 at 10:45 Iohexol (Omnipaque 300 Mg/ml) 75 ml 1X ONCE IV Last administered on 02/06/19at 12:38; Start 02/06/19 at 12:00; Stop 02/06/19 at 12:01; Status DC Info (CONTRAST GIVEN -- Rx MONITORING) 1 each PRN DAILY PRN MC SEE COMMENTS; Start 02/06/19 at 11:45; Stop 02/08/19 at 11:44; Status DC Sodium Chloride 100 meq/Sodium Phosphate 20 mmol/ Potassium Chloride 50 meq/ Magnesium Sulfate 13 meq/Calcium Gluconate 10 meq/ Multivitamins 10 ml/Chromium/ Copper/Manganese/ Seleni/Zn 1 ml/ Total Parenteral Nutrition/Amino Acids/Dextrose/ Fat Emulsion Intravenous 1,512 ml @ 63 mls/hr TPN CONT IV Last administered on 02/06/19at 22:05; Start 02/06/19 at 22:00; Stop 02/07/19 at 21:59; Status DC Metronidazole 100 ml @ 100 mls/hr Q6H IV Last administered on 02/08/19at 03:57; Start 02/06/19 at 16:00; Stop 02/08/19 at 12:04; Status DC Hydromorphone HCl (Dilaudid) 1 mg PRN Q2HR PRN IV PAIN Last administered on 02/10/19at 00:12; Start 02/07/19 at 00:00; Stop 02/10/19 at 01:36; Status DC Metoprolol Tartrate (Lopressor Vial) 5 mg PRN Q6HRS PRN IVP hypertension; Start 02/07/19 at 00:00 Sodium Chloride 50 meq/Sodium Phosphate 20 mmol/ Potassium Chloride 50 meq/ Magnesium Sulfate 13 meq/Calcium Gluconate 10 meq/ Multivitamins 10 ml/Chromium/ Copper/Manganese/ Seleni/Zn 1 ml/ Total Parenteral Nutrition/Amino Acids/Dextrose/ Fat Emulsion Intravenous 1,512 ml @ 63 mls/hr TPN CONT IV Last administered on 02/07/19at 23:14; Start 02/07/19 at 22:00; Stop 02/08/19 at 21:59; Status DC Vancomycin HCl (Vancomycin Oral Solution) 125 mg [id number] PO Last administered on 02/10/19at 07:26; Start 02/08/19 at 09:00 Sodium Chloride 20 meq/Sodium Phosphate 20 mmol/ Potassium Chloride 20 meq/ Magnesium Sulfate 13 meq/Calcium Gluconate 10 meq/ Multivitamins 10 ml/Chromium/ Copper/Manganese/ Seleni/Zn 1 ml/ Total Parenteral Nutrition/Amino Acids/Dextrose/ Fat Emulsion Intravenous 1,512 ml @ 63 mls/hr TPN CONT IV L ast administered on 02/08/19at 23:52; Start 02/08/19 at 22:00; Stop 02/09/19 at 21:59; Status DC Alprazolam (Xanax) 0.25 mg PRN Q8HRS PRN PO ANXIETY / AGITATION; Start 02/09/19 at 09:30 Quetiapine Fumarate (SEROquel XR) 50 mg DAILY PO ; Start 02/09/19 at 12:45 Sodium Chloride 20 meq/Sodium Phosphate 20 mmol/ Potassium Chloride 10 meq/ Magnesium Sulfate 13 meq/Calcium Gluconate 10 meq/ Multivitamins 10 ml/Chromium/ Copper/Manganese/ Seleni/Zn 1 ml/ Total Parenteral Nutrition/Amino Acids/Dextrose/ Fat Emulsion Intravenous 1,512 ml @ 63 mls/hr TPN CONT IV Last administered on 02/09/19at 20:28; Start 02/09/19 at 22:00; Stop 02/10/19 at 21:59 Fentanyl Citrate (Fentanyl 2ml Vial) 100 mcg PRN Q2HR PRN IV PAIN Last administered on 02/10/19at 07:26; Start 02/10/19 at 01:45 Lorazepam (Ativan) 1 mg PRN Q8HRS PRN PO ANXIETY / AGITATION; Start 02/10/19 at 08:15; Status Cancel Lorazepam (Ativan Inj) 1 mg PRN Q8HRS PRN IV ANXIETY / AGITATION Last administered on 02/10/19at 08:16; Start 02/10/19 at 08:15 Hydromorphone HCl (Dilaudid) 0.5 mg PRN Q2HR ONCE IV Last administered on 02/10/19at 10:01; Start 02/10/19 at 09:00; Stop 02/10/19 at 09:01; Status DC Haloperidol Lactate (Haldol Inj) 5 mg PRN Q4HRS PRN IVP AGITATION Last administered on 02/10/19at 08:57; Start 02/10/19 at 09:00 Hydromorphone HCl (Dilaudid) 0.5 mg PRN Q2HR ONCE IV ; Start 02/10/19 at 10:15; Stop 02/10/19 at 10:16; Status DC Active Scripts Active Lactulose 20 Gm/30 Ml Solution 20 Gm PO PRN TID PRN 30 Days Zofran (Ondansetron Hcl) 4 Mg Tablet 1 Tab PO Q6HRS 30 Days Hydrocodone-Apap 5-325 (Hydrocodone Bit/Acetaminophen) 1 Tab Tablet 1 Tab PO PRN Q6HRS PRN 6 Days Pantoprazole Sodium (Pantoprazole Sodium) 40 Mg Tablet.dr 40 Mg PO DAILYAC 30 Days Lorazepam 1 Mg Tablet 1 Mg PO PRN Q6HRS PRN 6 Days Reported Proair Hfa Inhaler (Albuterol Sulfate) 8.5 Gm Hfa.aer.ad 1 Puff INH PRN Q6HRS PRN Trelegy Ellipta 100-62.5-25 (Fluticasone/Umeclidin/Vilanter) 1 Each Blst.w.dev 1 Puff PO DAILY Vitals/I & O Vital Sign - Last 24 Hours 02/09/19 02/09/19 02/09/19 02/09/19 10:58 11:40 11:40 12:21 Temp 96.9 96.9 Pulse 110 Resp 18 B/P (MAP) 122/77 (92) Pulse Ox 96 96 96 O2 Delivery Room Air Room Air Room Air Room Air O2 Flow Rate 95.0 95.0 02/09/19 02/09/19 02/09/19 02/09/19 13:29 14:37 14:37 14:37 Pulse Ox 96 96 96 96 O2 Delivery Room Air Room Air Room Air Room Air O2 Flow Rate 95.0 95.0 95.0 95.0 02/09/19 02/09/19 02/09/19 02/09/19 14:37 15:00 16:03 16:52 Temp 97.2 97.2 Pulse 112 Resp 18 B/P (MAP) 124/68 (86) Pulse Ox 96 96 96 96 O2 Delivery Room Air Room Air Room Air Room Air O2 Flow Rate 95.0 95.0 95.0 02/09/19 02/09/19 02/09/19 02/09/19 18:11 18:11 18:50 19:25 Temp 98.2 98.2 Pulse 124 Resp 10 B/P (MAP) 143/86 (105) Pulse Ox 96 96 95 O2 Delivery Room Air Room Air Room Air Room Air O2 Flow Rate 95.0 95.0 02/09/19 02/09/19 02/09/19 02/09/19 19:25 19:25 19:54 23:25 Temp 98.1 98.1 Pulse 120 Resp 2 2 10 B/P (MAP) Pulse Ox 96 95 O2 Delivery Nasal Cannula Nasal Cannula Room Air Room Air 02/10/19 02/10/19 02/10/19 02/10/19 03:25 04:49 07:00 07:25 Temp 97.9 97.9 97.9 97.9 Pulse 127 110 Resp 11 21 B/P (MAP) 133/85 (101) 139/90 (106) Pulse Ox 96 94 97 O2 Delivery Room Air Room Air Room Air Room Air 02/10/19 02/10/19 02/10/19 02/10/19 07:26 08:00 08:07 10:01 Pulse Ox 96 97 97 O2 Delivery Room Air Room Air Room Air Room Air O2 Flow Rate 95.0 95.0 95.0 Intake and Output 02/09/19 02/09/19 02/10/19 15:00 23:00 07:00 Intake Total 80 ml 2784 ml 360 ml Output Total 450 ml 575 ml Balance -370 ml 2784 ml -215 ml REAL RIOJAS MD Feb 10, 2019 10:28
--- NOTE | 2019-02-10 12:30 | PDOC ---
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 Anxiety persistent enceph POOR PO, on tpn History of Present Illness History of Present Illness aggitated back on 1:1 this AM On ativan 0,.25 IV and haldol - increased dose of ativan pt responds well to pain meds on tpn plus PO - slow recovery from [facility] PLAN: LTAC accepted - dw SW but needs to be off 1:1 dw RN Ok to dc tele, be off tele bed Vitals Vitals Vital Signs Date Time Temp Pulse Resp B/P (MAP) Pulse Ox O2 Delivery O2 Flow Rate FiO2 02/10/19 11:50 Room Air 02/10/19 10:01 97 95.0 02/10/19 07:00 97.9 110 21 139/90 (106) 97.9 Physical Exam Physical Exam GENERAL: Resting quietly, mittens on ,, awake, more interactive HEENT: Oral cavity dry LUNGS: Clear anteriorly. HEART: S1, S2. No gallops or murmurs. ABDOMEN: Soft, mildly distended. Abd wound dressed. GJ tube intact : Moreno (02/06) EXTREMITIES: No edema, no cyanosis. Right foot bandaged DERMATOLOGIC: Warm, dry. No generalized rash. RIJ - clean General: Alert, No acute distress Heart: Normal S1, Normal S2 Lungs: Clear Abdomen: Soft, Other (ascites drainage, g tube in place) Extremities: No clubbing, No cyanosis, No tenderness/swelling Skin: No rashes, No breakdown Labs LABS Laboratory Tests Test 02/10/19 00:36 02/10/19 05:30 02/10/19 12:01 Glucose (Fingerstick) 160 mg/dL (70-99) 212 mg/dL (70-99) Sodium Level 133 mmol/L (136-145) Potassium Level 5.0 mmol/L (3.5-5.1) Chloride Level 104 mmol/L (98-107) Carbon Dioxide Level 23 mmol/L (21-32) Anion Gap 6 (6-14) Blood Urea Nitrogen 27 mg/dL (7-20) Creatinine 0.7 mg/dL (0.6-1.0) Estimated GFR (Cockcroft-Gault) 85.9 BUN/Creatinine Ratio 39 (6-20) Glucose Level 135 mg/dL (70-99) Calcium Level 8.1 mg/dL (8.5-10.1) Total Bilirubin 0.7 mg/dL (0.2-1.0) Aspartate Amino Transf (AST/SGOT) 50 U/L (15-37) Alanine Aminotransferase (ALT/SGPT) 31 U/L (14-59) Alkaline Phosphatase 206 U/L (46-116) Total Protein 5.5 g/dL (6.4-8.2) Albumin 1.4 g/dL (3.4-5.0) Albumin/Globulin Ratio 0.3 (1.0-1.7) Triglycerides Level 42 mg/dL (0-150) Comment Review of Relevant I have reviewed the following items dante (where applicable) has been applied. Labs Laboratory Tests Test 02/08/19 13:03 02/09/19 04:58 02/10/19 00:36 02/10/19 05:30 Glucose (Fingerstick) 137 mg/dL (70-99) 160 mg/dL (70-99) Sodium Level 137 mmol/L (136-145) 133 mmol/L (136-145) Potassium Level 4.9 mmol/L (3.5-5.1) 5.0 mmol/L (3.5-5.1) Chloride Level 108 mmol/L (98-107) 104 mmol/L (98-107) Carbon Dioxide Level 25 mmol/L (21-32) 23 mmol/L (21-32) Anion Gap 4 (6-14) 6 (6-14) Blood Urea Nitrogen 23 mg/dL (7-20) 27 mg/dL (7-20) Creatinine 0.6 mg/dL (0.6-1.0) 0.7 mg/dL (0.6-1.0) Estimated GFR (Cockcroft-Gault) 102.7 85.9 Glucose Level 139 mg/dL (70-99) 135 mg/dL (70-99) Calcium Level 7.8 mg/dL (8.5-10.1) 8.1 mg/dL (8.5-10.1) BUN/Creatinine Ratio 39 (6-20) Total Bilirubin 0.7 mg/dL (0.2-1.0) Aspartate Amino Transf (AST/SGOT) 50 U/L (15-37) Alanine Aminotransferase (ALT/SGPT) 31 U/L (14-59) Alkaline Phosphatase 206 U/L (46-116) Total Protein 5.5 g/dL (6.4-8.2) Albumin 1.4 g/dL (3.4-5.0) Albumin/Globulin Ratio 0.3 (1.0-1.7) Triglycerides Level 42 mg/dL (0-150) Test 02/10/19 12:01 Glucose (Fingerstick) 212 mg/dL (70-99) Laboratory Tests Test 02/10/19 00:36 02/10/19 05:30 02/10/19 12:01 Glucose (Fingerstick) 160 mg/dL (70-99) 212 mg/dL (70-99) Sodium Level 133 mmol/L (136-145) Potassium Level 5.0 mmol/L (3.5-5.1) Chloride Level 104 mmol/L (98-107) Carbon Dioxide Level 23 mmol/L (21-32) Anion Gap 6 (6-14) Blood Urea Nitrogen 27 mg/dL (7-20) Creatinine 0.7 mg/dL (0.6-1.0) Estimated GFR (Cockcroft-Gault) 85.9 BUN/Creatinine Ratio 39 (6-20) Glucose Level 135 mg/dL (70-99) Calcium Level 8.1 mg/dL (8.5-10.1) Total Bilirubin 0.7 mg/dL (0.2-1.0) Aspartate Amino Transf (AST/SGOT) 50 U/L (15-37) Alanine Aminotransferase (ALT/SGPT) 31 U/L (14-59) Alkaline Phosphatase 206 U/L (46-116) Total Protein 5.5 g/dL (6.4-8.2) Albumin 1.4 g/dL (3.4-5.0) Albumin/Globulin Ratio 0.3 (1.0-1.7) Triglycerides Level 42 mg/dL (0-150) Microbiology 02/01/19 Urine Culture - Final, Complete 02/01/19 Urine Culture Result 1 ([facility]) - Final, Complete 02/01/19 Blood Culture - Final, Complete NO GROWTH AFTER 5 DAYS Medications Current Medications Ondansetron HCl (Zofran) 4 mg PRN Q6HRS PRN IV NAUSEA/VOMITING; Start 01/27/19 at 07:00; Stop 01/28/19 at 06:59; Status DC Fentanyl Citrate (Fentanyl 2ml Vial) 25 mcg PRN Q5MIN PRN IV MILD PAIN 1-3; Start 01/27/19 at 07:00; Stop 01/28/19 at 06:59; Status DC Fentanyl Citrate (Fentanyl 2ml Vial) 50 mcg PRN Q5MIN PRN IV MODERATE TO SEVERE PAIN; Start 01/27/19 at 07:00; Stop 01/28/19 at 06:59; Status DC Morphine Sulfate (Morphine Sulfate) 1 mg PRN Q10MIN PRN IV SEVERE PAIN 7-10; Start 01/27/19 at 07:00; Stop 01/28/19 at 06:59; Status DC Ringer's Solution 1,000 ml @ 30 mls/hr Q24H IV Last administered on 01/27/19at 08:15; Start 01/27/19 at 07:00; Stop 01/27/19 at 18:59; Status DC Hydromorphone HCl (Dilaudid) 0.5 mg PRN Q10MIN PRN IV SEV PAIN, Second choice; Start 01/27/19 at 07:00; Stop 01/28/19 at 06:59; Status DC Prochlorperazine Edisylate (Compazine) 5 mg PACU PRN PRN IV NAUSEA, MRX1 Last administered on 01/28/19at 03:33; Start 01/27/19 at 07:00; Stop 01/28/19 at 06:59; Status DC Cefoxitin Sodium (Mefoxin) 2 gm 1X PREOP PRN IVP SURGERY Last administered on 01/27/19at 12:18; Start 01/27/19 at 06:00; Stop 01/28/19 at 10:13; Status DC Sevoflurane (Ultane) 90 ml STK-MED ONCE IH ; Start 01/27/19 at 09:11; Stop 01/27/19 at 09:11; Status DC Rocuronium [place] (Zemuron) 50 mg STK-MED ONCE .ROUTE ; Start 01/27/19 at 09:11; Stop 01/27/19 at 09:11; Status DC Fentanyl Citrate (Fentanyl 2ml Vial) 100 mcg STK-MED ONCE .ROUTE ; Start 01/27/19 at 09:11; Stop 01/27/19 at 09:11; Status DC Neostigmine Methylsulfate (Neostigmine Methylsulfate) 5 mg STK-MED ONCE .ROUTE ; Start 01/27/19 at 09:11; Stop 01/27/19 at 09:11; Status DC Midazolam HCl (Versed) 2 mg STK-MED ONCE .ROUTE ; Start 01/27/19 at 09:11; Stop 01/27/19 at 09:11; Status DC Glycopyrrolate (Robinul) 1 mg STK-MED ONCE .ROUTE ; Start 01/27/19 at 09:11; Stop 01/27/19 at 09:11; Status DC Phenylephrine HCl (Bret-Synephrine Inj) 10 mg STK-MED ONCE .ROUTE ; Start 01/27/19 at 09:11; Stop 01/27/19 at 09:12; Status DC Dexamethasone Sodium Phosphate (Decadron) 4 mg STK-MED ONCE .ROUTE ; Start 01/27/19 at 09:11; Stop 01/27/19 at 09:12; Status DC Ondansetron HCl (Zofran) 4 mg STK-MED ONCE .ROUTE ; Start 01/27/19 at 09:12; Stop 01/27/19 at 09:12; Status DC Lidocaine HCl (Lidocaine Pf 2% Vial) 5 ml STK-MED ONCE .ROUTE ; Start 01/27/19 at 09:12; Stop 01/27/19 at 09:12; Status DC Propofol 20 ml @ As Directed STK-MED ONCE IV ; Start 01/27/19 at 09:12; Stop 01/27/19 at 09:12; Status DC Sodium Chloride (Normal Saline Flush) 3 ml QSHIFT PRN IV AFTER MEDS AND BLOOD DRAWS; Start 01/27/19 at 09:30; Stop 02/03/19 at 09:09; Status DC Ibuprofen (Motrin) 400 mg PRN Q6HRS PRN PO MILD PAIN 1-3; Start 01/27/19 at 09:30 Naloxone HCl (Narcan) 0.4 mg PRN Q2MIN PRN IV SEE INSTRUCTIONS; Start 01/27/19 at 09:30; Stop 01/31/19 at 09:15; Status DC Sodium Chloride 1,000 ml @ 25 mls/hr Q24H IV ; Start 01/27/19 at 09:28; Stop 01/30/19 at 14:52; Status DC Ondansetron HCl (Zofran) 4 mg PRN Q6HRS PRN IV Nausea, 2nd Choice; Start 01/27/19 at 09:30; Status Cancel Epinephrine HCl (EPINEPHrine SYRINGE) 1 mg STK-MED ONCE .ROUTE ; Start 01/27/19 at 10:15; Stop 01/27/19 at 10:16; Status DC Lidocaine HCl (Lidocaine Pf 2% Vial) 5 ml STK-MED ONCE .ROUTE ; Start 01/27/19 at 10:15; Stop 01/27/19 at 10:16; Status DC Ropivacaine (Naropin 0.5%) 20 ml STK-MED ONCE .ROUTE ; Start 01/27/19 at 10:17; Stop 01/27/19 at 10:18; Status DC Cellulose (Surgicel Hemostat 4x8) 1 each STK-MED ONCE .ROUTE Last administered on 01/27/19at 11:25; Start 01/27/19 at 11:24; Stop 01/27/19 at 11:25; Status DC Cellulose (Surgicel Hemostat 4x8) 1 each STK-MED ONCE .ROUTE Last administered on 01/27/19at 11:39; Start 01/27/19 at 11:38; Stop 01/27/19 at 11:38; Status DC Rocuronium [place] (Zemuron) 50 mg STK-MED ONCE .ROUTE ; Start 01/27/19 at 12:09; Stop 01/27/19 at 12:09; Status DC Cefoxitin Sodium (Mefoxin) 2 gm 1X ONCE IVP Last administered on 01/27/19at 12:33; Start 01/27/19 at 12:30; Stop 01/27/19 at 12:31; Status DC Phenylephrine HCl (Bret-Synephrine Inj) 10 mg STK-MED ONCE .ROUTE ; Start 01/27/19 at 14:49; Stop 01/27/19 at 14:49; Status DC Sodium Chloride 35 ml/Fentanyl Citrate 250 mcg/ Ropivacaine 10 ml/ Epidural Dosage Infused (Pha) 50 ml @ 0 mls/hr CONT EPID ; Start 01/27/19 at 15:00; Status UNV Sodium Chloride 35 ml/Fentanyl Citrate 250 mcg/ Ropivacaine 10 ml/ Epidural Dosage Infused (Pha) 50 ml @ 0 mls/hr CONT PRN EPID SEE PROTOCOL TABLE Last administered on 01/28/19at 05:00; Start 01/27/19 at 15:00; Stop 01/28/19 at 08:11; Status DC Cefoxitin Sodium (Mefoxin) 2 gm 1X PREOP PRN IVP SURGERY Last administered on 01/27/19at 16:47; Start 01/27/19 at 15:15; Stop 01/28/19 at 10:13; Status DC Famotidine (Pepcid Vial) 20 mg BID IVP Last administered on 02/09/19at 20:28; Start 01/27/19 at 21:00 Enoxaparin Sodium (Lovenox 40mg Syringe) 40 mg Q24H SQ Last administered on 01/29/19at 12:24; Start 01/28/19 at 09:00; Stop 01/29/19 at 17:14; Status DC Sodium Chloride (Normal Saline Flush) 3 ml QSHIFT PRN IV AFTER MEDS AND BLOOD DRAWS; Start 01/27/19 at 15:45 Ringer's Solution 1,000 ml @ 100 mls/hr Q10H IV Last administered on 01/30/19at 03:20; Start 01/27/19 at 15:33; Stop 01/30/19 at 14:52; Status DC Naloxone HCl (Narcan) 0.4 mg PRN Q2MIN PRN IV SEE INSTRUCTIONS; Start 01/27/19 at 15:45 Sodium Chloride 1,000 ml @ 25 mls/hr Q24H IV ; Start 01/27/19 at 15:33; Stop 01/28/19 at 15:52; Status DC Ondansetron HCl (Zofran) 4 mg PRN Q6HRS PRN IV NAUESA, 1ST CHOICE Last administered on 02/01/19at 23:49; Start 01/27/19 at 15:45 Sodium Chloride 35 ml/Fentanyl Citrate 250 mcg/ Ropivacaine 10 ml/ Epidural Dosage Infused (Pha) 50 ml @ 0 mls/hr CONT PRN EPID SEE PROTOCOL TABLE Last administered on 02/01/19at 08:00; Start 01/28/19 at 08:15; Stop 02/01/19 at 10:03; Status DC Throat Lozenges (Cepacol Sore Throat Lozenge) 1 karthikeyan PRN Q2HRS PRN PO SORE THROAT Last administered on 01/28/19at 10:49; Start 01/28/19 at 09:30 Lorazepam (Ativan Inj) 0.5 mg PRN Q6HRS PRN IV ANXIETY AGITATION, 1ST CHOICE Last administered on 01/31/19at 21:13; Start 01/28/19 at 12:30; Stop 02/06/19 at 10:42; Status DC Thiamine HCl 100 mg DAILY IM Last administered on 01/30/19at 09:12; Start 01/28/19 at 13:00; Stop 01/31/19 at 11:44; Status DC Lorazepam (Ativan Inj) 2 mg PRN Q1HR PRN IV For CIWA 8-14 Last administered on 02/06/19at 03:27; Start 01/28/19 at 13:00; Stop 02/06/19 at 10:42; Status DC Lorazepam (Ativan Inj) 4 mg PRN Q1HR PRN IV For CIWA 15 or greater; Start 01/28/19 at 13:00; Stop 02/06/19 at 10:42; Status DC Haloperidol Lactate (Haldol Inj) 5 mg PRN Q4HRS PRN IVP Hallucin atns,Confusn,Delirium Last administered on 02/06/19at 21:35; Start 01/28/19 at 13:00 Diphenhydramine HCl (Benadryl) 25 mg PRN Q15MIN PRN IVP EPS symptoms 2'Haldol admin; Start 01/28/19 at 13:00 Lorazepam (Ativan Inj) 2 mg PRN Q15MIN PRN IV SEE COMMENTS Last administered on 02/05/19at 01:12; Start 01/28/19 at 13:00; Stop 02/06/19 at 10:42; Status DC Lorazepam (Ativan Inj) 4 mg PRN Q15MIN PRN IV SEE COMMENTS Last administered on 02/05/19at 02:29; Start 01/28/19 at 13:00; Stop 02/06/19 at 10:42; Status DC Albuterol/ Ipratropium (Duoneb) 3 ml RTQID NEB Last administered on 02/10/19at 11:49; Start 01/28/19 at 13:00 Non-Formulary Medication (Fluticasone/ Umeclidin/ Vilanter (Trelegy Ellipta 100-62.5-25)) 1 puff DAILY PO ; Start 01/29/19 at 09:00; Status UNV Budesonide (Pulmicort) 0.5 mg RTBID NEB Last administered on 02/10/19at 07:25; Start 01/28/19 at 20:00 Albuterol Sulfate (Ventolin Neb Soln) 2.5 mg PRN Q6HRS PRN INH SHORTNESS OF BREATH; Start 01/28/19 at 14:00 Lorazepam (Ativan) 1 mg PRN Q6HRS PRN PO ANXIETY / AGITATION Last administered on 02/04/19at 12:07; Start 01/28/19 at 14:00; Stop 02/04/19 at 12:58; Status DC Pantoprazole Sodium (Protonix) 40 mg DAILYAC PO Last administered on 02/08/19at 09:40; Start 01/28/19 at 16:30 Metoprolol Tartrate (Lopressor Vial) 12.5 mg BID IVP ; Start 01/29/19 at 21:00; Stop 01/29/19 at 14:50; Status DC Metoprolol Tartrate (Lopressor) 12.5 mg BID PO Last administered on 02/08/19at 22:03; Start 01/29/19 at 17:00 Amino Acids/ Glycerin/ Electrolytes 1,000 ml @ 75 mls/hr [id number] IV Last administered on 02/02/19at 18:20; Start 01/30/19 at 11:30; Stop 02/02/19 at 21:59; Status DC Acetaminophen (Tylenol) 650 mg PRN Q6HRS PRN PO fever Last administered on 02/01/19at 08:45; Start 01/31/19 at 01:15 Thiamine Mononitrate (Vitamin B-1) 100 mg DAILY PO Last administered on 02/08/19at 09:40; Start 01/31/19 at 12:30 Heparin Sodium (Porcine) (Heparin Sodium) 5,000 unit Q12HR SQ Last administered on 02/09/19at 20:28; Start 01/31/19 at 14:00 Piperacillin Sod/ Tazobactam Sod 3.375 gm/Sodium Chloride 50 ml @ 100 mls/hr Q6HRS IV Last administered on 02/04/19at 05:58; Start 02/01/19 at 10:00; Stop 02/04/19 at 06:32; Status DC Linezolid/Dextrose 300 ml @ 300 mls/hr Q12HR IV Last administered on 02/03/19at 21:30; Start 02/01/19 at 10:00; Stop 02/04/19 at 06:32; Status DC Micafungin Sodium 100 mg/Dextrose 100 ml @ 100 mls/hr Q24H IV Last administered on 02/08/19at 10:27; Start 02/01/19 at 11:00; Stop 02/08/19 at 12:04; Status DC Sodium Chloride 35 ml/Fentanyl Citrate 250 mcg/ Ropivacaine 10 ml/ Epidural Dosage Infused (Pha) 50 ml @ 0 mls/hr CONT PRN EPID SEE PROTOCOL TABLE Last administered on 02/01/19at 11:16; Start 02/01/19 at 10:15; Stop 02/04/19 at 09:09; Status DC Fentanyl Citrate (Fentanyl 2ml Vial) 25 mcg PRN Q5MIN PRN IV MILD PAIN 1-3; Start 02/01/19 at 14:00; Stop 02/02/19 at 13:59; Status DC Fentanyl Citrate (Fentanyl 2ml Vial) 50 mcg PRN Q5MIN PRN IV MODERATE TO SEVERE PAIN Last administered on 02/02/19at 09:09; Start 02/01/19 at 14:00; Stop 02/02/19 at 13:59; Status DC Hydromorphone HCl (Dilaudid) 1 mg PRN Q2HR PRN IV PAIN Last administered on 02/06/19at 09:11; Start 02/01/19 at 16:30; Stop 02/06/19 at 10:42; Status DC Ketorolac Tromethamine (Toradol 30mg Vial) 30 mg 1X ONCE IV Last administered on 02/01/19at 16:43; Start 02/01/19 at 16:30; Stop 02/01/19 at 16:31; Status DC Sodium Chloride 500 ml @ 500 mls/hr 1X ONCE IV Last administered on 02/02/19at 05:37; Start 02/02/19 at 05:30; Stop 02/02/19 at 06:29; Status DC Hydromorphone HCl 30 ml @ 0 mls/hr CONT PRN PRN IV PER PROTOCOL Last administered on 02/02/19at 10:32; Start 02/02/19 at 09:00; Stop 02/04/19 at 09:09; Status DC Info (Tpn Per Pharmacy) 1 each PRN DAILY PRN MC SEE COMMENTS Last administered on 02/09/19at 14:11; Start 02/02/19 at 10:00 Sodium Phosphate 20 mmol/Dextrose 256.6667 ml @ 64.167 m... 1X ONCE IV Last administered on 02/02/19at 14:38; Start 02/02/19 at 11:00; Stop 02/02/19 at 14:59 ; Status DC Furosemide (Lasix) 20 mg 1X ONCE IVP Last administered on 02/02/19at 16:16; Start 02/02/19 at 16:00; Stop 02/02/19 at 16:01; Status DC Lidocaine/Sodium Bicarbonate (Buffered Lidocaine 1%) 3 ml 1X ONCE INJ ; Start 02/02/19 at 14:00; Stop 02/02/19 at 14:05; Status DC Sodium Chloride 80 meq/Potassium Chloride 40 meq/ Sodium Phosphate 13.6 mmol/ Magnesium Sulfate 10 meq/Calcium Gluconate 10 meq/ Multivitamins 10 ml/Chromium/ Copper/Manganese/ Seleni/Zn 1 ml/ Total Parenteral Nutrition/Amino Aci ds/Dextrose/ Fat Emulsion Intravenous 1,512 ml @ 63 mls/hr TPN CONT IV Last administered on 02/02/19at 21:50; Start 02/02/19 at 22:00; Stop 02/03/19 at 21:59; Status DC Potassium Phosphate 15 mmol/ Sodium Chloride 255 ml @ 127.5 mls/ hr 1X ONCE IV Last administered on 02/03/19at 11:35; Start 02/03/19 at 11:00; Stop 02/03/19 at 12:59; Status DC Potassium Chloride (Klor-Con) 40 meq 1X ONCE PO Last administered on 02/03/19at 21:30; Start 02/03/19 at 11:30; Stop 02/03/19 at 11:31; Status DC Sodium Chloride 120 meq/Potassium Chloride 50 meq/ Sodium Phosphate 20.4 mmol/ Magnesium Sulfate 10 meq/Calcium Gluconate 10 meq/ Multivitamins 10 ml/Chromium/ Copper/Manganese/ Seleni/Zn 1 ml/ Total Parenteral Nutrition/Amino Acids/Dextrose/ Fat Emulsion Intravenous 1,512 ml @ 63 mls/hr TPN CONT IV Last administered on 02/03/19at 21:30; Start 02/03/19 at 22:00; Stop 02/04/19 at 21:59; Status DC Potassium Chloride (Klor-Con) 40 meq 1X ONCE PO Last administered on 02/03/19at 21:31; Start 02/03/19 at 21:00; Stop 02/03/19 at 21:01; Status DC Meropenem 500 mg/ Sodium Chloride 50 ml @ 100 mls/hr Q6HRS IV Last administered on 02/08/19at 05:55; Start 02/04/19 at 07:00; Stop 02/08/19 at 12:04; Status DC Oxycodone/ Acetaminophen (Percocet 5/325) 1 tab PRN Q4HRS PRN PO MODERATE TO SEVERE PAIN Last administered on 02/10/19at 05:24; Start 02/04/19 at 09:15 Docusate Sodium (Colace) 100 mg DAILY PO Last administered on 02/05/19at 09:13; Start 02/04/19 at 10:00 Iohexol (Omnipaque 350 Mg/ml) 75 ml 1X ONCE IV Last administered on 02/04/19at 12:30; Start 02/04/19 at 10:15; Stop 02/04/19 at 10:16; Status DC Info (CONTRAST GIVEN -- Rx MONITORING) 1 each PRN DAILY PRN MC SEE COMMENTS; Start 02/04/19 at 10:15; Stop 02/06/19 at 10:14; Status DC Lorazepam (Ativan) 1 mg PRN Q6HRS PRN PO ANXIETY / AGITATION Last administered on 02/04/19at 18:17; Start 02/04/19 at 13:00; Stop 02/06/19 at 10:42; Status DC Sodium Chloride 120 meq/Sodium Phosphate 24 mmol/ Potassium Chloride 50 meq/ Magnesium Sulfate 13 meq/Calcium Gluconate 10 meq/ Multivitamins 10 ml/Chromium/ Copper/Manganese/ Seleni/Zn 1 ml/ Total Parenteral Nutrition/Amino Acids/Dextrose/ Fat Emulsion Intravenous 1,512 ml @ 63 mls/hr TPN CONT IV Last administered on 02/04/19at 22:20; Start 02/04/19 at 22:00; Stop 02/05/19 at 21:59; Status DC Sodium Phosphate 15 mmol/Dextrose 255 ml @ 63.75 mls/ hr 1X ONCE IV Last administered on 02/04/19at 14:23; Start 02/04/19 at 14:00; Stop 02/04/19 at 17:59; Status DC Lorazepam (Ativan Inj) 2 mg PRN Q4HRS PRN IV ANXIETY/AGITATION (USE 2ND) Last administered on 02/04/19at 20:46; Start 02/04/19 at 20:15; Stop 02/06/19 at 10:42; Status DC Sodium Phosphate 20 mmol/Dextrose 256.6667 ml @ 64.167 m... 1X ONCE IV Last administered on 02/05/19at 12:56; Start 02/05/19 at 12:00; Stop 02/05/19 at 15:59; Status DC Sodium Chloride 120 meq/Sodium Phosphate 27 mmol/ Potassium Chloride 50 meq/ Magnesium Sulfate 13 meq/Calcium Gluconate 10 meq/ Multivitamins 10 ml/Chromium/ Copper/Manganese/ Seleni/Zn 1 ml/ Total Parenteral Nutrition/Amino Acids/Dextrose/ Fat Emulsion Intravenous 1,512 ml @ 63 mls/hr TPN CONT IV Last administered on 02/05/19at 23:33; Start 02/05/19 at 22:00; Stop 02/06/19 at 21:59; Status DC Lorazepam (Ativan Inj) 0.25 mg PRN Q6HRS PRN IV ANXIETY AGITATION, 1ST CHOICE Last administered on 02/10/19at 05:24; Start 02/06/19 at 10:45 Iohexol (Omnipaque 300 Mg/ml) 75 ml 1X ONCE IV Last administered on 02/06/19at 12:38; Start 02/06/19 at 12:00; Stop 02/06/19 at 12:01; Status DC Info (CONTRAST GIVEN -- Rx MONITORING) 1 each PRN DAILY PRN MC SEE COMMENTS; Start 02/06/19 at 11:45; Stop 02/08/19 at 11:44; Status DC Sodium Chloride 100 meq/Sodium Phosphate 20 mmol/ Potassium Chloride 50 meq/ Magnesium Sulfate 13 meq/Calcium Gluconate 10 meq/ Multivitamins 10 ml/Chromium/ Copper/Manganese/ Seleni/Zn 1 ml/ Total Parenteral Nutrition/Amino Acids/Dextrose/ Fat Emulsion Intravenous 1,512 ml @ 63 mls/hr TPN CONT IV Last administered on 02/06/19at 22:05; Start 02/06/19 at 22:00; Stop 02/07/19 at 21:59; Status DC Metronidazole 100 ml @ 100 mls/hr Q6H IV Last administered on 02/08/19at 03:57; Start 02/06/19 at 16:00; Stop 02/08/19 at 12:04; Status DC Hydromorphone HCl (Dilaudid) 1 mg PRN Q2HR PRN IV PAIN Last administered on 02/10/19at 00:12; Start 02/07/19 at 00:00; Stop 02/10/19 at 01:36; Status DC Metoprolol Tartrate (Lopressor Vial) 5 mg PRN Q6HRS PRN IVP hypertension; Start 02/07/19 at 00:00 Sodium Chloride 50 meq/Sodium Phosphate 20 mmol/ Potassium Chloride 50 meq/ Magnesium Sulfate 13 meq/Calcium Gluconate 10 meq/ Multivitamins 10 ml/Chromium/ Copper/Manganese/ Seleni/Zn 1 ml/ Total Parenteral Nutrition/Amino Acids/Dextrose/ Fat Emulsion Intravenous 1,512 ml @ 63 mls/hr TPN CONT IV Last administered on 02/07/19at 23:14; Start 02/07/19 at 22:00; Stop 02/08/19 at 21:59; Status DC Vancomycin HCl (Vancomycin Oral Solution) 125 mg [id number] PO Last administered on 02/10/19at 07:26; Start 02/08/19 at 09:00 Sodium Chloride 20 meq/Sodium Phosphate 20 mmol/ Potassium Chloride 20 meq/ Magnesium Sulfate 13 meq/Calcium Gluconate 10 meq/ Multivitamins 10 ml/Chromium/ Copper/Manganese/ Seleni/Zn 1 ml/ Total Parenteral Nutrition/Amino Acids/Dextrose/ Fat Emulsion Intravenous 1,512 ml @ 63 mls/hr TPN CONT IV Last administered on 02/08/19at 23:52; Start 02/08/19 at 22:00; Stop 02/09/19 at 21:59; Status DC Alprazolam (Xanax) 0.25 mg PRN Q8HRS PRN PO ANXIETY / AGITATION; Start 02/09/19 at 09:30 Quetiapine Fumarate (SEROquel XR) 50 mg DAILY PO ; Start 02/09/19 at 12:45 Sodium Chloride 20 meq/Sodium Phosphate 20 mmol/ Potassium Chloride 10 meq/ Magnesium Sulfate 13 meq/Calcium Gluconate 10 meq/ Multivitamins 10 ml/Chromium/ Copper/Manganese/ Seleni/Zn 1 ml/ Total Parenteral Nutrition/Amino Acid s/Dextrose/ Fat Emulsion Intravenous 1,512 ml @ 63 mls/hr TPN CONT IV Last administered on 02/09/19at 20:28; Start 02/09/19 at 22:00; Stop 02/10/19 at 21:59 Fentanyl Citrate (Fentanyl 2ml Vial) 100 mcg PRN Q2HR PRN IV PAIN Last administered on 02/10/19at 07:26; Start 02/10/19 at 01:45 Lorazepam (Ativan) 1 mg PRN Q8HRS PRN PO ANXIETY / AGITATION; Start 02/10/19 at 08:15; Status Cancel Lorazepam (Ativan Inj) 1 mg PRN Q8HRS PRN IV ANXIETY / AGITATION Last administered on 02/10/19at 08:16; Start 02/10/19 at 08:15 Hydromorphone HCl (Dilaudid) 0.5 mg PRN Q2HR ONCE IV Last administered on 02/10/19at 10:01; Start 02/10/19 at 09:00; Stop 02/10/19 at 09:01; Status DC Haloperidol Lactate (Haldol Inj) 5 mg PRN Q4HRS PRN IVP AGITATION Last administered on 02/10/19at 08:57; Start 02/10/19 at 09:00 Hydromorphone HCl (Dilaudid) 0.5 mg PRN Q2HR ONCE IV ; Start 02/10/19 at 10:15; Stop 02/10/19 at 10:58; Status DC Hydromorphone HCl (Dilaudid) 0.5 mg PRN Q2HR PRN IV PAIN, SECOND CHOICE; Start 02/10/19 at 11:00 Active Scripts Active Lactulose 20 Gm/30 Ml Solution 20 Gm PO PRN TID PRN 30 Days Zofran (Ondansetron Hcl) 4 Mg Tablet 1 Tab PO Q6HRS 30 Days Hydrocodone-Apap 5-325 (Hydrocodone Bit/Acetaminophen) 1 Tab Tablet 1 Tab PO PRN Q6HRS PRN 6 Days Pantoprazole Sodium (Pantoprazole Sodium) 40 Mg Tablet.dr 40 Mg PO DAILYAC 30 Days Lorazepam 1 Mg Tablet 1 Mg PO PRN Q6HRS PRN 6 Days Reported Proair Hfa Inhaler (Albuterol Sulfate) 8.5 Gm Hfa.aer.ad 1 Puff INH PRN Q6HRS PRN Trelegy Ellipta 100-62.5-25 (Fluticasone/Umeclidin/Vilanter) 1 Each Blst.w.dev 1 Puff PO DAILY Vitals/I & O Vital Sign - Last 24 Hours 02/09/19 02/09/19 02/09/19 02/09/19 13:29 14:37 14:37 14:37 Pulse Ox 96 96 96 96 O2 Delivery Room Air Room Air Room Air Room Air O2 Flow Rate 95.0 95.0 95.0 95.0 02/09/19 02/09/19 02/09/19 02/09/19 14:37 15:00 16:03 16:52 Temp 97.2 97.2 Pulse 112 Resp 18 B/P (MAP) 124/68 (86) Pulse Ox 96 96 96 96 O2 Delivery Room Air Room Air Room Air Room Air O2 Flow Rate 95.0 95.0 95.0 02/09/19 02/09/19 02/09/19 02/09/19 18:11 18:11 18:50 19:25 Temp 98.2 98.2 Pulse 124 Resp 10 B/P (MAP) 143/86 (105) Pulse Ox 96 96 95 O2 Delivery Room Air Room Air Room Air Room Air O2 Flow Rate 95.0 95.0 02/09/19 02/09/19 02/09/19 02/09/19 19:25 19:25 19:54 23:25 Temp 98.1 98.1 Pulse 120 Resp 2 2 10 B/P (MAP) Pulse Ox 96 95 O2 Delivery Nasal Cannula Nasal Cannula Room Air Room Air 02/10/19 02/10/19 02/10/19/24/19 03:25 04:49 07:00 07:25 Temp 97.9 97.9 97.9 97.9 Pulse 127 110 Resp 11 21 B/P (MAP) 133/85 (101) 139/90 (106) Pulse Ox 96 94 97 O2 Delivery Room Air Room Air Room Air Room Air 02/10/19 02/10/19 02/10/19 02/10/19 07:26 08:00 08:07 10:01 Pulse Ox 96 97 97 O2 Delivery Room Air Room Air Room Air Room Air O2 Flow Rate 95.0 95.0 95.0 02/10/19 02/10/19 10:54 11:50 O2 Delivery Room Air Room Air Intake and Output 02/09/19 02/09/19 02/10/19 15:00 23:00 07:00 Intake Total 80 ml 2784 ml 360 ml Output Total 450 ml 575 ml Balance -370 ml 2784 ml -215 ml LEN MARIANO MD Feb 10, 2019 12:30
[2019-02-10] MEDS: TPN PER PHARMACY MC PRN (13:30)
[2019-02-10 15:00] VITALS: BP 131/63
--- NOTE | 2019-02-10 16:13 | PDOC ---
Infectious Disease Note Subjective Subjective No fevers , ROS ROS no n/v/d/sob Vital Sign Vital Signs Vital Signs Date Time Temp Pulse Resp B/P (MAP) Pulse Ox O2 Delivery O2 Flow Rate FiO2 02/10/19 15:35 96 Room Air 02/10/19 15:00 98.4 128 22 131/63 (85) 98.4 02/10/19 12:59 95.0 Physical Exam PHYSICAL EXAM GENERAL: Resting quietly, mittens on ,, awake, more interactive HEENT: Oral cavity dry LUNGS: Clear anteriorly. HEART: S1, S2. No gallops or murmurs. ABDOMEN: Soft, mildly distended. Abd wound dressed. GJ tube intact : Moreno (02/06) EXTREMITIES: No edema, no cyanosis. Right foot bandaged DERMATOLOGIC: Warm, dry. No generalized rash. [facility] - clean Labs Lab Laboratory Tests Test 02/10/19 00:36 02/10/19 05:30 02/10/19 12:01 Glucose (Fingerstick) 160 mg/dL (70-99) 212 mg/dL (70-99) Sodium Level 133 mmol/L (136-145) Potassium Level 5.0 mmol/L (3.5-5.1) Chloride Level 104 mmol/L (98-107) Carbon Dioxide Level 23 mmol/L (21-32) Anion Gap 6 (6-14) Blood Urea Nitrogen 27 mg/dL (7-20) Creatinine 0.7 mg/dL (0.6-1.0) Estimated GFR (Cockcroft-Gault) 85.9 BUN/Creatinine Ratio 39 (6-20) Glucose Level 135 mg/dL (70-99) Calcium Level 8.1 mg/dL (8.5-10.1) Total Bilirubin 0.7 mg/dL (0.2-1.0) Aspartate Amino Transf (AST/SGOT) 50 U/L (15-37) Alanine Aminotransferase (ALT/SGPT) 31 U/L (14-59) Alkaline Phosphatase 206 U/L (46-116) Total Protein 5.5 g/dL (6.4-8.2) Albumin 1.4 g/dL (3.4-5.0) Albumin/Globulin Ratio 0.3 (1.0-1.7) Triglycerides Level 42 mg/dL (0-150) Micro Microbiology 02/01/19 Urine Culture - Final, Complete 02/01/19 Urine Culture Result 1 ([facility]) - Final, Complete 02/01/19 Blood Culture - Final, Complete NO GROWTH AFTER 5 DAYS Objective Assessment Fever - resolved UA - clean. Leukocytosis - better Status post Whipple's 01/27 Pancreatic CA Encephalopathy - ? metabolic History of hepatitis C. History of bilateral mastectomy. Chronic obstructive pulmonary disease. Peripheral neuropathy. ETOH abuse and h/o anxiety. Urinary retention s/p Moreno placement, 02/06 Plan Plan of Care cont po vanco, closely monitor, may have to reinitiate if s/s of infection d/w daughter at bedside D/w nursing TRINI GAXIOLA MD Feb 10, 2019 16:13
[2019-02-10 20:55] VITALS: BP 127/70
[2019-02-10] MEDS ORDERED: [UNRECOGNIZED DRUG - OTHER] IV SCH ×11 (22:00)
[2019-02-10] MEDS ORDERED: DEXTROSE 70% IV SCH ×11 (22:00)
[2019-02-10] MEDS ORDERED: TOTAL PARENTERAL NUTRITION IV SCH ×11 (22:00)
[2019-02-10] MEDS ORDERED: AMINO ACID IV SCH ×11 (22:00)
[2019-02-10 23:23] VITALS: BP 127/65
[2019-02-11] MEDS: oxyCODONE/APAP 5/325 1 TAB TABLET PO PRN (01:23)
[2019-02-11] MEDS: BENZOCAINE/MENTHOL LOZENGE. PO PRN (01:23)
[2019-02-11] MEDS: fentaNYL PF VIAL 100 MCG/2 ML VIAL IV PRN ×2 (02:30→05:01)
[2019-02-11] MEDS: HALOPERIDOL LACTATE 5 MG/ML VIAL. IVP PRN (03:34)
[2019-02-11 03:56] VITALS: BP 124/67
[2019-02-11] MEDS: PANTOPRAZOLE 40 MG TABLET.DR. PO SCH (05:01)
[2019-02-11 05:57] LABS: CALCIUM 7.6 mg/dL (8.5-10.1); CREATININE 0.6 mg/dL (0.6-1.0); GFR 102.7; POTASSIUM 4.4 mmol/L (3.5-5.1)
[2019-02-11 07:00] VITALS: BP 133/80
[2019-02-11] MEDS: HYDROmorphone 2 MG/ML VIAL IV PRN ×4 (07:06→20:21)
[2019-02-11] MEDS: IPRATRPIUM/ALBUTEROL 0.5/2.5MG 3 ML NEBU. NEB SCH ×4 (07:14→20:43)
[2019-02-11] MEDS: BUDESONIDE 0.5 MG/2 ML NEBU. NEB SCH ×2 (07:14→20:43)
[2019-02-11] MEDS ORDERED: HALOPERIDOL 2 MG TABLET. PO SCH (09:00)
[2019-02-11] MEDS: THIAMINE 100 MG TABLET. PO SCH (10:05)
[2019-02-11] MEDS: DOCUSATE SODIUM 100 MG CAPSULE. PO SCH (10:05)
[2019-02-11] MEDS: QUEtiapine 50 MG TAB.ER.24H. PO SCH (10:05)
[2019-02-11] MEDS: ALPRAZolam 0.5 MG TABLET PO SCH ×3 (10:05→20:22)
[2019-02-11] MEDS: METOPROLOL TART IMMED RELEASE 25 MG TABLET. PO SCH ×3 (10:07→20:42)
[2019-02-11] MEDS: VANCOMYCIN 125 MG/2.5 ML ORAL SOLUTION. PO SCH ×4 (10:08→20:22)
[2019-02-11] MEDS: FAMOTIDINE 20 MG/2 ML VIAL IVP SCH ×2 (10:08→20:23)
[2019-02-11] MEDS: HALOPERIDOL 2 MG/ML ORAL.CONC. PO SCH ×3 (10:08→20:20)
[2019-02-11] MEDS: HEPARIN for SUB-Q USE 5,000 UNIT/ML VIAL. SQ SCH ×2 (10:26→20:27)
--- NOTE | 2019-02-11 10:39 | PDOC ---
Infectious Disease Note Subjective Subjective pt is awake, speaking better, wants to go home says YOHANA MULLER no n/v/d/sob/fever Vital Sign Vital Signs Vital Signs Date Time Temp Pulse Resp B/P (MAP) Pulse Ox O2 Delivery O2 Flow Rate FiO2 02/11/19 10:26 Room Air 02/11/19 10:26 127 133/80 02/11/19 07:14 98 02/11/19 07:00 16 02/10/19 23:23 98.0 98.0 02/10/19 12:59 95.0 Physical Exam PHYSICAL EXAM GENERAL: awake HEENT: Oral cavity dry LUNGS: Clear anteriorly. HEART: S1, S2. No gallops or murmurs. ABDOMEN: Soft, mildly distended. Abd wound dressed. GJ tube intact : Moreno (02/06) EXTREMITIES: No edema, no cyanosis. Right foot bandaged DERMATOLOGIC: Warm, dry. No generalized rash. [facility] - clean Labs Lab Laboratory Tests Test 02/10/19 12:01 02/10/19 21:08 02/11/19 01:37 02/11/19 05:10 Glucose (Fingerstick) 212 mg/dL (70-99) 149 mg/dL (70-99) 115 mg/dL (70-99) Sodium Level 130 mmol/L (136-145) Potassium Level 4.4 mmol/L (3.5-5.1) Chloride Level 100 mmol/L (98-107) Carbon Dioxide Level 25 mmol/L (21-32) Anion Gap 5 (6-14) Blood Urea Nitrogen 27 mg/dL (7-20) Creatinine 0.6 mg/dL (0.6-1.0) Estimated GFR (Cockcroft-Gault) 102.7 Glucose Level 122 mg/dL (70-99) Calcium Level 7.6 mg/dL (8.5-10.1) Test 02/11/19 08:08 Glucose (Fingerstick) 142 mg/dL (70-99) Micro Microbiology 02/01/19 Urine Culture - Final, Complete 02/01/19 Urine Culture Result 1 ([facility]) - Final, Complete 02/01/19 Blood Culture - Final, Complete NO GROWTH AFTER 5 DAYS Objective Assessment Fever - resolved UA - clean. Leukocytosis - better Status post Whipple's 01/27 Pancreatic CA Encephalopathy - ? metabolic History of hepatitis C. History of bilateral mastectomy. Chronic obstructive pulmonary disease. Peripheral neuropathy. ETOH abuse and h/o anxiety. Urinary retention s/p Moreno placement, 02/06 Plan Plan of Care cont po Jose David ordonez/w nursing TRINI GAXIOLA MD Feb 11, 2019 10:39
[2019-02-11 10:47] LABS: BASO # 0.2 x10^3/uL (0.0-0.2); BASO % 1 % (0-3); EOS # 0.1 x10^3/uL (0.0-0.7); EOS % 0 % (0-3); HEMATOCRIT 31.1 % (36.0-47.0); HEMOGLOBIN 10.2 g/dL (12.0-15.5); LYMPH # 3.4 x10^3/uL (1.0-4.8); LYMPH % 11 % (24-48); MEAN CORPUSCULAR HEMOGLOBIN 33 pg (25-35); MEAN CORPUSCULAR HGB CONC 33 g/dL (31-37); MEAN CORPUSCULAR VOLUME 101 fL (79-100); MONO # 2.5 x10^3/uL (0.0-1.1); MONO % 8 % (0-9); NEUT # 26.2 x10^3/uL (1.8-7.7); NEUT % 81 % (31-73); PLATELET COUNT 263 x10^3/uL (140-400); RED BLOOD COUNT 3.07 x10^6/uL (3.50-5.40); RED CELL DISTRIBUTION WIDTH 14.6 % (11.5-14.5); WHITE BLOOD COUNT 32.4 x10^3/uL (4.0-11.0)
[2019-02-11 11:00] VITALS: BP 114/76
--- NOTE | 2019-02-11 11:02 | SNU/HH DC ---
DISCHARGE ORDERS DISCHARGE INFORMATION: DISCHARGE DATE: Feb 11, 2019 CONDITION ON DISCHARGE: Stable CODE STATUS: Code Status: Full FPC: SNF STAY <30 DAYS: No HOSPICE: HOSPICE: No HOSPICE EVAL & TREAT: No LTAC: ADMIT TO LTAC: Yes POST DISCHARGE ORDERS: ACTIVITY ORDERS: Activity as tolerated WEIGHT BEARING STATUS: As tolerated CHECKS AFTER DISCHARGE: CHECKS AFTER DISCHARGE: Check blood press - daily, Check your Temp as needed FOLLOW-UP: PHYSICIAN FOLLOW-UP: dr JOVI Guo on PO vanc TREATMENT/EQUIPMENT ORDERS: ADAPTIVE EQUIPMENT NEEDED: None Physical Therapy For: Evalulation/Treatment Occupational Therapy For: Evaluation/Treatment DISCHARGE MEDICATIONS: Home Meds Active Scripts Lactulose (LACTULOSE) 20 Gm/30 Ml Solution, 20 GM PO PRN TID PRN for CONSTIPATION for 30 Days, #300 MISC 2 Refills Prov:TAMAR CHAMPAGNE MD 01/23/19 Ondansetron Hcl (ZOFRAN) 4 Mg Tablet, 1 TAB PO Q6HRS for nausea for 30 Days, #1 20 TAB Prov:TAMAR CHAMPAGNE MD 01/23/19 Hydrocodone Bit/Acetaminophen (HYDROCODONE-APAP 5-325 ) 1 Tab Tablet, 1 TAB PO PRN Q6HRS PRN for PAIN for 6 Days, #24 TAB 0 Refills Prov:TAMAR CHAMPAGNE MD 01/22/19 Pantoprazole Sodium (PANTOPRAZOLE SODIUM ) 40 Mg Tablet.dr, 40 MG PO DAILYAC for Reflux for 30 Days, #30 TAB.SR Prov:TAMAR CHAMPAGNE MD 01/22/19 Lorazepam (LORAZEPAM) 1 Mg Tablet, 1 MG PO PRN Q6HRS PRN for ANXIETY / AGITATION for 6 Days, #24 TAB Prov:TAMAR CHAMPAGNE MD 01/22/19 Reported Medications Albuterol Sulfate (PROAIR HFA INHALER) 8.5 Gm Hfa.aer.ad, 1 PUFF INH PRN Q6HRS PRN for SHORTNESS OF BREATH, INHALER 0 Refills 01/26/19 Fluticasone/Umeclidin/Vilanter (Trelegy Ellipta 100-62.5-25) 1 Each Blst.w.dev, 1 PUFF PO DAILY for SOA 01/20/19 MARY SILVESTRE MD Feb 11, 2019 11:02
--- NOTE | 2019-02-11 11:05 | PDOC3 ---
Discharge Summary Visit Information Date of Admission: Jan 27, 2019 Date of Discharge: Feb 11, 2019 Admitting Diagnosis Comment: Pancreatic mass - INVASIVE PANCREATIC DUCTAL ADENOCARCINOMA from whipple 01/27/2019 H/o hep c Hepatitis Alcoholism Bilateral Mastectomy Hypokalemia Acute pancreatitis 02/05 Hyperlipidemia COPD Periperal neuropathy Cirrhosis - Cirrhotic morphology of the liver with sequela of portal hypertension including splenomegaly, and trace intra-abdominal ascites. Anxiety persistent enceph POOR PO, on tpn Brief Hospital Course Allergies Allergies Coded Allergies Type Severity Reaction Last Updated Verified No Known Drug Allergies 01/27/19 No Vital Signs Vital Signs Date Time Temp Pulse Resp B/P (MAP) Pulse Ox O2 Delivery O2 Flow Rate FiO2 02/11/19 10:53 Room Air 02/11/19 10:26 127 133/80 02/11/19 07:14 98 02/11/19 07:00 16 02/10/19 23:23 98.0 98.0 02/10/19 12:59 95.0 Lab Results Laboratory Tests Test 02/10/19 00:36 02/10/19 05:30 02/10/19 12:01 02/10/19 21:08 Glucose (Fingerstick) 160 mg/dL (70-99) 212 mg/dL (70-99) 149 mg/dL (70-99) Sodium Level 133 mmol/L (136-145) Potassium Level 5.0 mmol/L (3.5-5.1) Chloride Level 104 mmol/L (98-107) Carbon Dioxide Level 23 mmol/L (21-32) Anion Gap 6 (6-14) Blood Urea Nitrogen 27 mg/dL (7-20) Creatinine 0.7 mg/dL (0.6-1.0) Estimated GFR (Cockcroft-Gault) 85.9 BUN/Creatinine Ratio 39 (6-20) Glucose Level 135 mg/dL (70-99) Calcium Level 8.1 mg/dL (8.5-10.1) Total Bilirubin 0.7 mg/dL (0.2-1.0) Aspartate Amino Transf (AST/SGOT) 50 U/L (15-37) Alanine Aminotransferase (ALT/SGPT) 31 U/L (14-59) Alkaline Phosphatase 206 U/L (46-116) Total Protein 5.5 g/dL (6.4-8.2) Albumin 1.4 g/dL (3.4-5.0) Albumin/Globulin Ratio 0.3 (1.0-1.7) Triglycerides Level 42 mg/dL (0-150) Test 02/11/19 01:37 02/11/19 05:10 02/11/19 08:08 Glucose (Fingerstick) 115 mg/dL (70-99) 142 mg/dL (70-99) White Blood Count 32.4 x10^3/uL (4.0-11.0) Red Blood Count 3.07 x10^6/uL (3.50-5.40) Hemoglobin 10.2 g/dL (12.0-15.5) Hematocrit 31.1 % (36.0-47.0) Mean Corpuscular Volume 101 fL (79-100) Mean Corpuscular Hemoglobin 33 pg (25-35) Mean Corpuscular Hemoglobin Concent 33 g/dL (31-37) Red Cell Distribution Width 14.6 % (11.5-14.5) Platelet Count 263 x10^3/uL (140-400) Neutrophils (%) (Auto) 81 % (31-73) Lymphocytes (%) (Auto) 11 % (24-48) Monocytes (%) (Auto) 8 % (0-9) Eosinophils (%) (Auto) 0 % (0-3) Basophils (%) (Auto) 1 % (0-3) Neutrophils # (Auto) 26.2 x10^3/uL (1.8-7.7) Lymphocytes # (Auto) 3.4 x10^3/uL (1.0-4.8) Monocytes # (Auto) 2.5 x10^3/uL (0.0-1.1) Eosinophils # (Auto) 0.1 x10^3/uL (0.0-0.7) Basophils # (Auto) 0.2 x10^3/uL (0.0-0.2) Sodium Level 130 mmol/L (136-145) Potassium Level 4.4 mmol/L (3.5-5.1) Chloride Level 100 mmol/L (98-107) Carbon Dioxide Level 25 mmol/L (21-32) Anion Gap 5 (6-14) Blood Urea Nitrogen 27 mg/dL (7-20) Creatinine 0.6 mg/dL (0.6-1.0) Estimated GFR (Cockcroft-Gault) 102.7 Glucose Level 122 mg/dL (70-99) Calcium Level 7.6 mg/dL (8.5-10.1) Laboratory Tests Test 02/10/19 12:01 02/10/19 21:08 02/11/19 01:37 02/11/19 05:10 Glucose (Fingerstick) 212 mg/dL (70-99) 149 mg/dL (70-99) 115 mg/dL (70-99) White Blood Count 32.4 x10^3/uL (4.0-11.0) Red Blood Count 3.07 x10^6/uL (3.50-5.40) Hemoglobin 10.2 g/dL (12.0-15.5) Hematocrit 31.1 % (36.0-47.0) Mean Corpuscular Volume 101 fL (79-100) Mean Corpuscular Hemoglobin 33 pg (25-35) Mean Corpuscular Hemoglobin Concent 33 g/dL (31-37) Red Cell Distribution Width 14.6 % (11.5-14.5) Platelet Count 263 x10^3/uL (140-400) Neutrophils (%) (Auto) 81 % (31-73) Lymphocytes (%) (Auto) 11 % (24-48) Monocytes (%) (Auto) 8 % (0-9) Eosinophils (%) (Auto) 0 % (0-3) Basophils (%) (Auto) 1 % (0-3) Neutrophils # (Auto) 26.2 x10^3/uL (1.8-7.7) Lymphocytes # (Auto) 3.4 x10^3/uL (1.0-4.8) Monocytes # (Auto) 2.5 x10^3/uL (0.0-1.1) Eosinophils # (Auto) 0.1 x10^3/uL (0.0-0.7) Basophils # (Auto) 0.2 x10^3/uL (0.0-0.2) Sodium Level 130 mmol/L (136-145) Potassium Level 4.4 mmol/L (3.5-5.1) Chloride Level 100 mmol/L (98-107) Carbon Dioxide Level 25 mmol/L (21-32) Anion Gap 5 (6-14) Blood Urea Nitrogen 27 mg/dL (7-20) Creatinine 0.6 mg/dL (0.6-1.0) Estimated GFR (Cockcroft-Gault) 102.7 Glucose Level 122 mg/dL (70-99) Calcium Level 7.6 mg/dL (8.5-10.1) Test 02/11/19 08:08 Glucose (Fingerstick) 142 mg/dL (70-99) Brief Hospital Course Ms. Iqbal is a 58 old white female who came from home, supprotive family underwent a whipple for pancreatic mass but unfortunately had a slow post op recovery and some agitation/confusion needing 1 :1 and me starting seroquel and some Haldol and ativan, She also needed TPN via PICC bec of POOR Po and also PO vanc per ID< She will need ID and Psych consults at [facility] now FULL CODE Family maybe involved in her care seen and examined dw consults: GS, ID PRoc; whipples Discharge Information Condition at Discharge: Improved, Stable Disposition/Orders: Other (snu) Scheduled Fluticasone/Umeclidin/Vilanter (Trelegy Ellipta 100-62.5-25) 1 Each Blst.w.dev, 1 PUFF PO DAILY for SOA, (Reported) Entered as Reported by: Kirit Spence on 01/20/192144 Last Taken: Unknown Dose on 01/27/19 0600 Last Action: Converted on 01/28/19 1251 by CARLOS RUANO MD Ondansetron Hcl (Zofran) 4 Mg Tablet, 1 TAB PO Q6HRS for nausea for 30 Days, #120 Prescribed by: TAMAR CHAMPAGNE MD on 01/23/19 1341 Last Taken: Unknown Dose on 01/26/19 Last Action: HELD on 01/28/19 1251 by CARLOS RUANO MD Pantoprazole Sodium (Pantoprazole Sodium ) 40 Mg Tablet.dr, 40 MG PO DAILYAC for Reflux for 30 Days, #30 Prescribed by: TAMAR CHAMPAGNE MD on 01/22/19 1432 Last Action: Continued on 01/28/19 1347 by Joselito Levin Scheduled PRN Albuterol Sulfate (Proair Hfa Inhaler) 8.5 Gm Hfa.aer.ad, 1 PUFF INH PRN Q6HRS PRN for SHORTNESS OF BREATH, Ref 0 (Reported) Entered as Reported by: VICKEY MELGAR on 01/26/19 1016 Last Taken: Unknown Dose on 01/27/19 0758 Last Action: Continued on 01/28/191346 by Joselito Levin Hydrocodone Bit/Acetaminophen (Hydrocodone-Apap 5-325 ) 1 Tab Tablet, 1 TAB PO PRN Q6HRS PRN for PAIN for 6 Days, #24 Ref 0 Prescribed by: TAMAR CHAMPAGNE MD on 01/22/19 143 Last Taken: Unknown Dose on 01/27/19 0400 Last Action: HELD on 01/28/19 1251 by CARLOS RUANO MD Lactulose (Lactulose) 20 Gm/30 Ml Solution, 20 GM PO PRN TID PRN for CONSTIPATION for 30 Days, #300 Ref 2 Prescribed by: TAMAR CHAMPAGNE MD on 01/23/19 1341 Last Taken: Unknown Dose on 01/24/19 Last Action: HELD on 01/28/19 125 by CARLOS RUANO MD Lorazepam (Lorazepam) 1 Mg Tablet, 1 MG PO PRN Q6HRS PRN for ANXIETY / AGITATION for 6 Days, #24 Prescribed by: TAMAR CHAMPAGNE MD on 01/22/19 143 Last Taken: Unknown Dose on 01/27/19 0700 Last Action: Continued on 01/28/191346 by MARY Childress MD Feb 11, 2019 11:05
--- NOTE | 2019-02-11 11:26 | PDOC ---
Provider Note Provider Note [facility] unable to take [place] bec of sitter - has to be sitter- free x 24 hrs I STARTED SOME HALDOL PO JANINE AND XANAX PO JANINE KEEP SEROQUEL I ALSO STARTED LAST SATURDAY FULL CODE CONT TPN and po MARY Pablo MD Feb 11, 2019 11:26
--- NOTE | 2019-02-11 11:32 | PDOC ---
PROGRESS NOTES Assessment Toxic and metabolic encephalopathy, EEG negative for epileptic activity, consistent with encephalopathy (02/06), better Leukocytosis, hypocalcemia, hypophosphatemia, had some hypo-magnesemia, elevated pro-calcitonin levels. Transaminases and bilirubin were normal on 02/03, additional laboratory studies I ordered are normal Plan Hold on lumbar puncture Overall prognosis is poor. Agree with transfer to LTAC, but had to Return to 1:1 nursing yesterday so discharge is delayed Subjective none Objective Vital Signs Date Time Temp Pulse Resp B/P (MAP) Pulse Ox O2 Delivery O2 Flow Rate FiO2 02/11/19 11:19 98 Room Air 02/11/19 10:26 127 133/80 02/11/19 07:00 16 02/10/19 23:23 98.0 98.0 02/10/19 12:59 95.0 Intake and Output 02/11/19 07:00 Intake Total 340 ml Output Total 1500 ml Balance -1160 ml Intake Oral 150 ml IV Total 190 ml Output Urine Total 750 ml Drainage Total 750 ml PHYSICAL EXAM Opens eyes to voice, Follows commands, knows name and hospital, not date. Calmer than yesterday PERRL. EOMI. CN: no focal findings. Muscle tone: normal. Muscle strength: 4/5 DTR: 2+ Plantar reflex: Flexor Gait: not examined Sensory exam: intact.. No cerebellar signs noted Review of Relevant I have reviewed the following items dante (where applicable) has been applied. Labs Laboratory Tests Test 02/10/19 00:36 02/10/19 05:30 02/10/19 12:01 02/10/19 21:08 Glucose (Fingerstick) 160 mg/dL (70-99) 212 mg/dL (70-99) 149 mg/dL (70-99) Sodium Level 133 mmol/L (136-145) Potassium Level 5.0 mmol/L (3.5-5.1) Chloride Level 104 mmol/L (98-107) Carbon Dioxide Level 23 mmol/L (21-32) Anion Gap 6 (6-14) Blood Urea Nitrogen 27 mg/dL (7-20) Creatinine 0.7 mg/dL (0.6-1.0) Estimated GFR (Cockcroft-Gault) 85.9 BUN/Creatinine Ratio 39 (6-20) Glucose Level 135 mg/dL (70-99) Calcium Level 8.1 mg/dL (8.5-10.1) Total Bilirubin 0.7 mg/dL (0.2-1.0) Aspartate Amino Transf (AST/SGOT) 50 U/L (15-37) Alanine Aminotransferase (ALT/SGPT) 31 U/L (14-59) Alkaline Phosphatase 206 U/L (46-116) Total Protein 5.5 g/dL (6.4-8.2) Albumin 1.4 g/dL (3.4-5.0) Albumin/Globulin Ratio 0.3 (1.0-1.7) Triglycerides Level 42 mg/dL (0-150) Test 02/11/19 01:37 02/11/19 05:10 02/11/19 08:08 Glucose (Fingerstick) 115 mg/dL (70-99) 142 mg/dL (70-99) White Blood Count 32.4 x10^3/uL (4.0-11.0) Red Blood Count 3.07 x10^6/uL (3.50-5.40) Hemoglobin 10.2 g/dL (12.0-15.5) Hematocrit 31.1 % (36.0-47.0) Mean Corpuscular Volume 101 fL (79-100) Mean Corpuscular Hemoglobin 33 pg (25-35) Mean Corpuscular Hemoglobin Concent 33 g/dL (31-37) Red Cell Distribution Width 14.6 % (11.5-14.5) Platelet Count 263 x10^3/uL (140-400) Neutrophils (%) (Auto) 81 % (31-73) Lymphocytes (%) (Auto) 11 % (24-48) Monocytes (%) (Auto) 8 % (0-9) Eosinophils (%) (Auto) 0 % (0-3) Basophils (%) (Auto) 1 % (0-3) Neutrophils # (Auto) 26.2 x10^3/uL (1.8-7.7) Lymphocytes # (Auto) 3.4 x10^3/uL (1.0-4.8) Monocytes # (Auto) 2.5 x10^3/uL (0.0-1.1) Eosinophils # (Auto) 0.1 x10^3/uL (0.0-0.7) Basophils # (Auto) 0.2 x10^3/uL (0.0-0.2) Sodium Level 130 mmol/L (136-145) Potassium Level 4.4 mmol/L (3.5-5.1) Chloride Level 100 mmol/L (98-107) Carbon Dioxide Level 25 mmol/L (21-32) Anion Gap 5 (6-14) Blood Urea Nitrogen 27 mg/dL (7-20) Creatinine 0.6 mg/dL (0.6-1.0) Estimated GFR (Cockcroft-Gault) 102.7 Glucose Level 122 mg/dL (70-99) Calcium Level 7.6 mg/dL (8.5-10.1) Laboratory Tests Test 02/10/19 12:01 02/10/19 21:08 02/11/19 01:37 02/11/19 05:10 Glucose (Fingerstick) 212 mg/dL (70-99) 149 mg/dL (70-99) 115 mg/dL (70-99) White Blood Count 32.4 x10^3/uL (4.0-11.0) Red Blood Count 3.07 x10^6/uL (3.50-5.40) Hemoglobin 10.2 g/dL (12.0-15.5) Hematocrit 31.1 % (36.0-47.0) Mean Corpuscular Volume 101 fL (79-100) Mean Corpuscular Hemoglobin 33 pg (25-35) Mean Corpuscular Hemoglobin Concent 33 g/dL (31-37) Red Cell Distribution Width 14.6 % (11.5-14.5) Platelet Count 263 x10^3/uL (140-400) Neutrophils (%) (Auto) 81 % (31-73) Lymphocytes (%) (Auto) 11 % (24-48) Monocytes (%) (Auto) 8 % (0-9) Eosinophils (%) (Auto) 0 % (0-3) Basophils (%) (Auto) 1 % (0-3) Neutrophils # (Auto) 26.2 x10^3/uL (1.8-7.7) Lymphocytes # (Auto) 3.4 x10^3/uL (1.0-4.8) Monocytes # (Auto) 2.5 x10^3/uL (0.0-1.1) Eosinophils # (Auto) 0.1 x10^3/uL (0.0-0.7) Basophils # (Auto) 0.2 x10^3/uL (0.0-0.2) Sodium Level 130 mmol/L (136-145) Potassium Level 4.4 mmol/L (3.5-5.1) Chloride Level 100 mmol/L (98-107) Carbon Dioxide Level 25 mmol/L (21-32) Anion Gap 5 (6-14) Blood Urea Nitrogen 27 mg/dL (7-20) Creatinine 0.6 mg/dL (0.6-1.0) Estimated GFR (Cockcroft-Gault) 102.7 Glucose Level 122 mg/dL (70-99) Calcium Level 7.6 mg/dL (8.5-10.1) Test 02/11/19 08:08 Glucose (Fingerstick) 142 mg/dL (70-99) Microbiology 02/01/19 Urine Culture - Final, Complete 02/01/19 Urine Culture Result 1 (WINSTON) - Final, Complete 02/01/19 Blood Culture - Final, Complete NO GROWTH AFTER 5 DAYS Medications Current Medications Ondansetron HCl (Zofran) 4 mg PRN Q6HRS PRN IV NAUSEA/VOMITING; Start 01/27/19 at 07:00; Stop 01/28/19 at 06:59; Status DC Fentanyl Citrate (Fentanyl 2ml Vial) 25 mcg PRN Q5MIN PRN IV MILD PAIN 1-3; Start 01/27/19 at 07:00; Stop 01/28/19 at 06:59; Status DC Fentanyl Citrate (Fentanyl 2ml Vial) 50 mcg PRN Q5MIN PRN IV MODERATE TO SEVERE PAIN; Start 01/27/19 at 07:00; Stop 01/28/19 at 06:59; Status DC Morphine Sulfate (Morphine Sulfate) 1 mg PRN Q10MIN PRN IV SEVERE PAIN 7-10; Start 01/27/19 at 07:00; Stop 01/28/19 at 06:59; Status DC Ringer's Solution 1,000 ml @ 30 mls/hr Q24H IV Last administered on 01/27/19at 08:15; Start 01/27/19 at 07:00; Stop 01/27/19 at 18:59; Status DC Hydromorphone HCl (Dilaudid) 0.5 mg PRN Q10MIN PRN IV SEV PAIN, Second choice; Start 01/27/19 at 07:00; Stop 01/28/19 at 06:59; Status DC Prochlorperazine Edisylate (Compazine) 5 mg PACU PRN PRN IV NAUSEA, MRX1 Last administered on 01/28/19at 03:33; Start 01/27/19 at 07:00; Stop 01/28/19 at 06:59; Status DC Cefoxitin Sodium (Mefoxin) 2 gm 1X PREOP PRN IVP SURGERY Last administered on 01/27/19at 12:18; Start 01/27/19 at 06:00; Stop 01/28/19 at 10:13; Status DC Sevoflurane (Ultane) 90 ml STK-MED ONCE IH ; Start 01/27/19 at 09:11; Stop 01/27/19 at 09:11; Status DC Rocuronium [place] (Zemuron) 50 mg STK-MED ONCE .ROUTE ; Start 01/27/19 at 09:11; Stop 01/27/19 at 09:11; Status DC Fentanyl Citrate (Fentanyl 2ml Vial) 100 mcg STK-MED ONCE .ROUTE ; Start 01/27/19 at 09:11; Stop 01/27/19 at 09:11; Status DC Neostigmine Methylsulfate (Neostigmine Methylsulfate) 5 mg STK-MED ONCE .ROUTE ; Start 01/27/19 at 09:11; Stop 01/27/19 at 09:11; Status DC Midazolam HCl (Versed) 2 mg STK-MED ONCE .ROUTE ; Start 01/27/19 at 09:11; Stop 01/27/19 at 09:11; Status DC Glycopyrrolate (Robinul) 1 mg STK-MED ONCE .ROUTE ; Start 01/27/19 at 09:11; Stop 01/27/19 at 09:11; Status DC Phenylephrine HCl (Bret-Synephrine Inj) 10 mg STK-MED ONCE .ROUTE ; Start 01/27/19 at 09:11; Stop 01/27/19 at 09:12; Status DC Dexamethasone Sodium Phosphate (Decadron) 4 mg STK-MED ONCE .ROUTE ; Start 01/27/19 at 09:11; Stop 01/27/19 at 09:12; Status DC Ondansetron HCl (Zofran) 4 mg STK-MED ONCE .ROUTE ; Start 01/27/19 at 09:12; Stop 01/27/19 at 09:12; Status DC Lidocaine HCl (Lidocaine Pf 2% Vial) 5 ml STK-MED ONCE .ROUTE ; Start 01/27/19 at 09:12; Stop 01/27/19 at 09:12; Status DC Propofol 20 ml @ As Directed STK-MED ONCE IV ; Start 01/27/19 at 09:12; Stop at 09:12; Status DC Sodium Chloride (Normal Saline Flush) 3 ml QSHIFT PRN IV AFTER MEDS AND BLOOD DRAWS; Start 01/27/19 at 09:30; Stop 02/03/19 at 09:09; Status DC Ibuprofen (Motrin) 400 mg PRN Q6HRS PRN PO MILD PAIN 1-3; Start 01/27/19 at 09:30 Naloxone HCl (Narcan) 0.4 mg PRN Q2MIN PRN IV SEE INSTRUCTIONS; Start 01/27/19 at 09:30; Stop 01/31/19 at 09:15; Status DC Sodium Chloride 1,000 ml @ 25 mls/hr Q24H IV ; Start 01/27/19 at 09:28; Stop 01/30/19 at 14:52; Status DC Ondansetron HCl (Zofran) 4 mg PRN Q6HRS PRN IV Nausea, 2nd Choice; Start 01/27/19 at 09:30; Status Cancel Epinephrine HCl (EPINEPHrine SYRINGE) 1 mg STK-MED ONCE .ROUTE ; Start 01/27/19 at 10:15; Stop 01/27/19 at 10:16; Status DC Lidocaine HCl (Lidocaine Pf 2% Vial) 5 ml STK-MED ONCE .ROUTE ; Start 01/27/19 at 10:15; Stop 01/27/19 at 10:16; Status DC Ropivacaine (Naropin 0.5%) 20 ml STK-MED ONCE .ROUTE ; Start 01/27/19 at 10:17; Stop 01/27/19 at 10:18; Status DC Cellulose (Surgicel Hemostat 4x8) 1 each STK-MED ONCE .ROUTE Last administered on 01/27/19at 11:25; Start 01/27/19 at 11:24; Stop 01/27/19 at 11:25; Status DC Cellulose (Surgicel Hemostat 4x8) 1 each STK-MED ONCE .ROUTE Last administered on 01/27/19at 11:39; Start 01/27/19 at 11:38; Stop 01/27/19 at 11:38; Status DC Rocuronium [place] (Zemuron) 50 mg STK-MED ONCE .ROUTE ; Start 01/27/19 at 12:09; Stop 01/27/19 at 12:09; Status DC Cefoxitin Sodium (Mefoxin) 2 gm 1X ONCE IVP Last administered on 01/27/19at 12:33; Start 01/27/19 at 12:30; Stop 01/27/19 at 12:31; Status DC Phenylephrine HCl (Bret-Synephrine Inj) 10 mg STK-MED ONCE .ROUTE ; Start 01/27/19 at 14:49; Stop 01/27/19 at 14:49; Status DC Sodium Chloride 35 ml/Fentanyl Citrate 250 mcg/ Ropivacaine 10 ml/ Epidural Dosage Infused (Pha) 50 ml @ 0 mls/hr CONT EPID ; Start 01/27/19 at 15:00; Status UNV Sodium Chloride 35 ml/Fentanyl Citrate 250 mcg/ Ropivacaine 10 ml/ Epidural Dosage Infused (Pha) 50 ml @ 0 mls/hr CONT PRN EPID SEE PROTOCOL TABLE Last administered on 01/28/19at 05:00; Start 01/27/19 at 15:00; Stop 01/28/19 at 08:11; Status DC Cefoxitin Sodium (Mefoxin) 2 gm 1X PREOP PRN IVP SURGERY Last administered on 01/27/19at 16:47; Start 01/27/19 at 15:15; Stop 01/28/19 at 10:13; Status DC Famotidine (Pepcid Vial) 20 mg BID IVP Last administered on 02/11/19at 10:26; Start 01/27/19 at 21:00 Enoxaparin Sodium (Lovenox 40mg Syringe) 40 mg Q24H SQ Last administered on 01/29/19at 12:24; Start 01/28/19 at 09:00; Stop 01/29/19 at 17:14; Status DC Sodium Chloride (Normal Saline Flush) 3 ml QSHIFT PRN IV AFTER MEDS AND BLOOD DRAWS; Start 01/27/19 at 15:45 Ringer's Solution 1,000 ml @ 100 mls/hr Q10H IV Last administered on 01/30/19at 03:20; Start 01/27/19 at 15:33; Stop 01/30/19 at 14:52; Status DC Naloxone HCl (Narcan) 0.4 mg PRN Q2MIN PRN IV SEE INSTRUCTIONS; Start 01/27/19 at 15:45 Sodium Chloride 1,000 ml @ 25 mls/hr Q24H IV ; Start 01/27/19 at 15:33; Stop 01/28/19 at 15:52; Status DC Ondansetron HCl (Zofran) 4 mg PRN Q6HRS PRN IV NAUESA, 1ST CHOICE Last administered on 02/01/19at 23:49; Start 01/27/19 at 15:45 Sodium Chloride 35 ml/Fentanyl Citrate 250 mcg/ Ropivacaine 10 ml/ Epidural Dosage Infused (Pha) 50 ml @ 0 mls/hr CONT PRN EPID SEE PROTOCOL TABLE Last administered on 02/01/19at 08:00; Start 01/28/19 at 08:15; Stop 02/01/19 at 10:03; Status DC Throat Lozenges (Cepacol Sore Throat Lozenge) 1 karthikeyan PRN Q2HRS PRN PO SORE THROAT Last administered on 02/11/19at 01:23; Start 01/28/19 at 09:30 Lorazepam (Ativan Inj) 0.5 mg PRN Q6HRS PRN IV ANXIETY AGITATION, 1ST CHOICE Last administered on 01/31/19at 21:13; Start 01/28/19 at 12:30; Stop 02/06/19 at 10:42; Status DC Thiamine HCl 100 mg DAILY IM Last administered on 01/30/19at 09:12; Start 01/28/19 at 13:00; Stop 01/31/19 at 11:44; Status DC Lorazepam (Ativan Inj) 2 mg PRN Q1HR PRN IV For CIWA 8-14 Last administered on 02/06/19at 03:27; Start 01/28/19 at 13:00; Stop 02/06/19 at 10:42; Status DC Lorazepam (Ativan Inj) 4 mg PRN Q1HR PRN IV For CIWA 15 or greater; Start 01/28/19 at 13:00; Stop 02/06/19 at 10:42; Status DC Haloperidol Lactate (Haldol Inj) 5 mg PRN Q4HRS PRN IVP Hallucinatns,Confusn,Delirium Last administered on 02/06/19at 21:35; Start 01/28/19 at 13:00; Stop 02/11/19 at 09:28; Status DC Diphenhydramine HCl (Benadryl) 25 mg PRN Q15MIN PRN IVP EPS symptoms 2'Haldol admin; Start 01/28/19 at 13:00 Lorazepam (Ativan Inj) 2 mg PRN Q15MIN PRN IV SEE COMMENTS Last administered on 02/05/19at 01:12; Start 01/28/19 at 13:00; Stop 02/06/19 at 10:42; Status DC Lorazepam (Ativan Inj) 4 mg PRN Q15MIN PRN IV SEE COMMENTS Last administered on 02/05/19at 02:29; Start 01/28/19 at 13:00; Stop 02/06/19 at 10:42; Status DC Albuterol/ Ipratropium (Duoneb) 3 ml RTQID NEB Last administered on 02/11/19at 11:17; Start 01/28/19 at 13:00 Non-Formulary Medication (Fluticasone/ Umeclidin/ Vilanter (Trelegy Ellipta 100-62.5-25)) 1 puff DAILY PO ; Start 01/29/19 at 09:00; Status UNV Budesonide (Pulmicort) 0.5 mg RTBID NEB Last administered on 02/11/19at 07:14; Start 01/28/19 at 20:00 Albuterol Sulfate (Ventolin Neb Soln) 2.5 mg PRN Q6HRS PRN INH SHORTNESS OF BREATH; Start 01/28/19 at 14:00 Lorazepam (Ativan) 1 mg PRN Q6HRS PRN PO ANXIETY / AGITATION Last administered on 02/04/19at 12:07; Start 01/28/19 at 14:00; Stop 02/04/19 at 12:58; Status DC Pantoprazole Sodium (Protonix) 40 mg DAILYAC PO Last administered on 02/11/19 05:02; Start 01/28/19 at 16:30 Metoprolol Tartrate (Lopressor Vial) 12.5 mg BID IVP ; Start 01/29/19 at 21:00; Stop 01/29/19 at 14:50; Status DC Metoprolol Tartrate (Lopressor) 12.5 mg BID PO Last administered on 02/11/19 10:26; Start 01/29/19 at 17:00 Amino Acids/ Glycerin/ Electrolytes 1,000 ml @ 75 mls/hr [id number] IV Last administered on 02/02/19 18:20; Start 01/30/19 at 11:30; Stop 02/02/19 at 21:59; Status DC Acetaminophen (Tylenol) 650 mg PRN Q6HRS PRN PO fever Last administered on 02/01/19 08:45; Start 01/31/19 at 01:15 Thiamine Mononitrate (Vitamin B-1) 100 mg DAILY PO Last administered on 02/11/19 10:26; Start 01/31/19 at 12:30 Heparin Sodium (Porcine) (Heparin Sodium) 5,000 unit Q12HR SQ Last administered on 02/11/19 10:26; Start 01/31/19 at 14:00 Piperacillin Sod/ Tazobactam Sod 3.375 gm/Sodium Chloride 50 ml @ 100 mls/hr Q6HRS IV Last administered on 02/04/19 05:58; Start 02/01/19 at 10:00; Stop 02/04/19 at 06:32; Status DC Linezolid/Dextrose 300 ml @ 300 mls/hr Q12HR IV Last administered on 02/03/19at 21:30; Start 02/01/19 at 10:00; Stop 02/04/19 at 06:32; Status DC Micafungin Sodium 100 mg/Dextrose 100 ml @ 100 mls/hr Q24H IV Last administered on 02/08/19 10:27; Start 02/01/19 at 11:00; Stop 02/08/19 at 12:04; Status DC Sodium Chloride 35 ml/Fentanyl Citrate 250 mcg/ Ropivacaine 10 ml/ Epidural Dosage Infused (Pha) 50 ml @ 0 mls/hr CONT PRN EPID SEE PROTOCOL TABLE Last administered on 9/15/19at 11:16; Start 02/01/19 at 10:15; Stop 02/04/19 at 09:09; Status DC Fentanyl Citrate (Fentanyl 2ml Vial) 25 mcg PRN Q5MIN PRN IV MILD PAIN 1-3; Start 02/01/19 at 14:00; Stop 02/02/19 at 13:59; Status DC Fentanyl Citrate (Fentanyl 2ml Vial) 50 mcg PRN Q5MIN PRN IV MODERATE TO SEVERE PAIN Last administered on 02/02/19 09:09; Start 02/01/19 at 14:00; Stop 02/02/19 at 13:59; Status DC Hydromorphone HCl (Dilaudid) 1 mg PRN Q2HR PRN IV PAIN Last administered on 01/19 09:11; Start 02/01/19 at 16:30; Stop 02/06/19 at 10:42; Status DC Ketorolac Tromethamine (Toradol 30mg Vial) 30 mg 1X ONCE IV Last administered on 02/01/19at 16:43; Start 02/01/19 at 16:30; Stop 02/01/19 at 16:31; Status DC Sodium Chloride 500 ml @ 500 mls/hr 1X ONCE IV Last administered on 02/02/19at 05:37; Start 02/02/19 at 05:30; Stop 02/02/19 at 06:29; Status DC Hydromorphone HCl 30 ml @ 0 mls/hr CONT PRN PRN IV PER PROTOCOL Last administered on 02/02/19at 10:32; Start 02/02/19 at 09:00; Stop 02/04/19 at 09:09; Status DC Info (Tpn Per Pharmacy) 1 each PRN DAILY PRN MC SEE COMMENTS Last administered on 02/10/19 13:30; Start 02/02/19 at 10:00 Sodium Phosphate 20 mmol/Dextrose 256.6667 ml @ 64.167 m... 1X ONCE IV Last administered on 02/02/19at 14:38; Start 02/02/19 at 11:00; Stop 02/02/19 at 14:59; Status DC Furosemide (Lasix) 20 mg 1X ONCE IVP Last administered on 02/02/19at 16:16; Start 02/02/19 at 16:00; Stop 02/02/19 at 16:01; Status DC Lidocaine/Sodium Bicarbonate (Buffered Lidocaine 1%) 3 ml 1X ONCE INJ ; Start 02/02/19 at 14:00; Stop 02/02/19 at 14:05; Status DC Sodium Chloride 80 meq/Potassium Chloride 40 meq/ Sodium Phosphate 13.6 mmol/ Magnesium Sulfate 10 meq/Calcium Gluconate 10 meq/ Multivitamins 10 ml/Chromium/ Copper/Manganese/ Seleni/Zn 1 ml/ Total Parenteral Nutrition/Amino Acids/Dextrose/ Fat Emulsion Intravenous 1,512 ml @ 63 mls/hr TPN CONT IV Last administered on 02/02/19at 21:50; Start 02/02/19 at 22:00; Stop 02/03/19 at 21:59; Status DC Potassium Phosphate 15 mmol/ Sodium Chloride 255 ml @ 127.5 mls/ hr 1X ONCE IV Last administered on 02/03/19at 11:35; Start 02/03/19 at 11:00; Stop 02/03/19 at 12:59; Status DC Potassium Chloride (Klor-Con) 40 meq 1X ONCE PO Last administered on 02/03/19at 21:30; Start 02/03/19 at 11:30; Stop 02/03/19 at 11:31; Status DC Sodium Chloride 120 meq/Potassium Chloride 50 meq/ Sodium Phosphate 20.4 mmol/ M agnesium Sulfate 10 meq/Calcium Gluconate 10 meq/ Multivitamins 10 ml/Chromium/ Copper/Manganese/ Seleni/Zn 1 ml/ Total Parenteral Nutrition/Amino Acids/Dextrose/ Fat Emulsion Intravenous 1,512 ml @ 63 mls/hr TPN CONT IV Last administered on 02/03/19at 21:30; Start 02/03/19 at 22:00; Stop 02/04/19 at 21:59; Status DC Potassium Chloride (Klor-Con) 40 meq 1X ONCE PO Last administered on 02/03/19at 21:31; Start 02/03/19 at 21:00; Stop 02/03/19 at 21:01; Status DC Meropenem 500 mg/ Sodium Chloride 50 ml @ 100 mls/hr Q6HRS IV Last administered on 02/08/19at 05:55; Start 02/04/19 at 07:00; Stop 02/08/19 at 12:04; Status DC Oxycodone/ Acetaminophen (Percocet 5/325) 1 tab PRN Q4HRS PRN PO MODERATE TO SEVERE PAIN Last administered on 02/11/19 01:23; Start 02/04/19 at 09:15 Docusate Sodium (Colace) 100 mg DAILY PO Last administered on 02/11/19 10:26; Start 02/04/19 at 10:00 Iohexol (Omnipaque 350 Mg/ml) 75 ml 1X ONCE IV Last administered on 02/04/19 12:30; Start 02/04/19 at 10:15; Stop 02/04/19 at 10:16; Status DC Info (CONTRAST GIVEN -- Rx MONITORING) 1 each PRN DAILY PRN MC SEE COMMENTS; Start 02/04/19 at 10:15; Stop 02/06/19 at 10:14; Status DC Lorazepam (Ativan) 1 mg PRN Q6HRS PRN PO ANXIETY / AGITATION Last administered on 02/04/19at 18:17; Start 02/04/19 at 13:00; Stop 02/06/19 at 10:42; Status DC Sodium Chloride 120 meq/Sodium Phosphate 24 mmol/ Potassium Chloride 50 meq/ Magnesium Sulfate 13 meq/Calcium Gluconate 10 meq/ Multivitamins 10 ml/Chromium/ Copper/Manganese/ Seleni/Zn 1 ml/ Total Parenteral Nutrition/Amino Acids/Dextrose/ Fat Emulsion Intravenous 1,512 ml @ 63 mls/hr TPN CONT IV Last administered on 02/04/19at 22:20; Start 02/04/19 at 22:00; Stop 02/05/19 at 21:59; Status DC Sodium Phosphate 15 mmol/Dextrose 255 ml @ 63.75 mls/ hr 1X ONCE IV Last administered on 02/04/19at 14:23; Start 02/04/19 at 14:00; Stop 02/04/19 at 17:59; Status DC Lorazepam (Ativan Inj) 2 mg PRN Q4HRS PRN IV ANXIETY/AGITATION (USE 2ND) Last administered on 02/04/19at 20:46; Start 02/04/19 at 20:15; Stop 02/06/19 at 10:42; Status DC Sodium Phosphate 20 mmol/Dextrose 256.6667 ml @ 64.167 m... 1X ONCE IV Last administered on 02/05/19at 12:56; Start 02/05/19 at 12:00; Stop 02/05/19 at 15:59; Status DC Sodium Chloride 120 meq/Sodium Phosphate 27 mmol/ Potassium Chloride 50 meq/ Magnesium Sulfate 13 meq/Calcium Gluconate 10 meq/ Multivitamins 10 ml/Chromium/ Copper/Manganese/ Seleni/Zn 1 ml/ Total Parenteral Nutrition/Amino Acids/Dextrose/ Fat Emulsion Intravenous 1,512 ml @ 63 mls/hr TPN CONT IV Last administered on 02/05/19at 23:33; Start 02/05/19 at 22:00; Stop 02/06/19 at 21:59; Status DC Lorazepam (Ativan Inj) 0.25 mg PRN Q6HRS PRN IV ANXIETY AGITATION, 1ST CHOICE Last administered on 02/10/19at 05:24; Start 02/06/19 at 10:45 Iohexol (Omnipaque 300 Mg/ml) 75 ml 1X ONCE IV Last administered on 02/06/19at 12:38; Start 02/06/19 at 12:00; Stop 02/06/19 at 12:01; Status DC Info (CONTRAST GIVEN -- Rx MONITORING) 1 each PRN DAILY PRN MC SEE COMMENTS; Start 02/06/19 at 11:45; Stop 02/08/19 at 11:44; Status DC Sodium Chloride 100 meq/Sodium Phosphate 20 mmol/ Potassium Chloride 50 meq/ Magnesium Sulfate 13 meq/Calcium Gluconate 10 meq/ Multivitamins 10 ml/Chromium/ Copper/Manganese/ Seleni/Zn 1 ml/ Total Parenteral Nutrition/Amino Acids/Dextrose/ Fat Emulsion Intravenous 1,512 ml @ 63 mls/hr TPN CONT IV Last administered on 02/06/19at 22:05; Start 02/06/19 at 22:00; Stop 02/07/19 at 21:59; Status DC Metronidazole 100 ml @ 100 mls/hr Q6H IV Last administered on 02/08/19at 03:57; Start 02/06/19 at 16:00; Stop 02/08/19 at 12:04; Status DC Hydromorphone HCl (Dilaudid) 1 mg PRN Q2HR PRN IV PAIN Last administered on 02/10/19at 00:12; Start 02/07/19 at 00:00; Stop 02/10/19 at 01:36; Status DC Metoprolol Tartrate (Lopressor Vial) 5 mg PRN Q6HRS PRN IVP hypertension; Start 02/07/19 at 00:00 Sodium Chloride 50 meq/Sodium Phosphate 20 mmol/ Potassium Chloride 50 meq/ Magnesium Sulfate 13 meq/Calcium Gluconate 10 meq/ Multivitamins 10 ml/Chromium/ Copper/Manganese/ Seleni/Zn 1 ml/ Total Parenteral Nutrition/Amino Acids/ Dextrose/ Fat Emulsion Intravenous 1,512 ml @ 63 mls/hr TPN CONT IV Last administered on 02/07/19at 23:14; Start 02/07/19 at 22:00; Stop 02/08/19 at 21:59; Status DC Vancomycin HCl (Vancomycin Oral Solution) 125 mg [id number] PO Last administered on 02/11/19at 10:26; Start 02/08/19 at 09:00 Sodium Chloride 20 meq/Sodium Phosphate 20 mmol/ Potassium Chloride 20 meq/ Magnesium Sulfate 13 meq/Calcium Gluconate 10 meq/ Multivitamins 10 ml/Chromium/ Copper/Manganese/ Seleni/Zn 1 ml/ Total Parenteral Nutrition/Amino Acids/Dextrose/ Fat Emulsion Intravenous 1,512 ml @ 63 mls/hr TPN CONT IV Last administered on 02/08/19at 23:52; Start 02/08/19 at 22:00; Stop 02/09/19 at 21:59; Status DC Alprazolam (Xanax) 0.25 mg PRN Q8HRS PRN PO ANXIETY / AGITATION; Start 02/09/19 at 09:30 Quetiapine Fumarate (SEROquel XR) 50 mg DAILY PO Last administered on 02/11/19at 10:26; Start 02/09/19 at 12:45 Sodium Chloride 20 meq/Sodium Phosphate 20 mmol/ Potassium Chloride 10 meq/ Magnesium Sulfate 13 meq/Calcium Gluconate 10 meq/ Multivitamins 10 ml/Chromium/ Copper/Manganese/ Seleni/Zn 1 ml/ Total Parenteral Nutrition/Amino Acids/Dextrose/ Fat Emulsion Intravenous 1,512 ml @ 63 mls/hr TPN CONT IV Last administered on 02/09/19at 20:28; Start 02/09/19 at 22:00; Stop 02/10/19 at 21:59; Status DC Fentanyl Citrate (Fentanyl 2ml Vial) 100 mcg PRN Q2HR PRN IV PAIN Last administered on 02/11/19at 05:02; Start 02/10/19 at 01:45 Lorazepam (Ativan) 1 mg PRN Q8HRS PRN PO ANXIETY / AGITATION; Start 02/10/19 at 08:15; Status Cancel Lorazepam (Ativan Inj) 1 mg PRN Q8HRS PRN IV ANXIETY / AGITATION Last administered on 02/10/19at 21:09; Start 02/10/19 at 08:15 Hydromorphone HCl (Dilaudid) 0.5 mg PRN Q2HR ONCE IV Last administered on 02/10/19at 10:01; Start 02/10/19 at 09:00; Stop 02/10/19 at 09:01; Status DC Haloperidol Lactate (Haldol Inj) 5 mg PRN Q4HRS PRN IVP AGITATION Last administered on 02/11/19at 03:34; Start 02/10/19 at 09:00 Hydromorphone HCl (Dilaudid) 0.5 mg PRN Q2HR ONCE IV ; Start 02/10/19 at 10:15; Stop 02/10/19 at 10:58; Status DC Hydromorphone HCl (Dilaudid) 0.5 mg PRN Q2HR PRN IV PAIN, SECOND CHOICE Last administered on 02/11/19at 10:26; Start 02/10/19 at 11:00 Sodium Chloride 30 meq/Sodium Acetate 20 meq/ Sodium Phosphate 20 mmol/Potassium Chloride 5 meq/ Magnesium Sulfate 13 meq/Calcium Gluconate 10 meq/ Multivitamins 10 ml/Chromium/ Copper/Manganese/ Seleni/Zn 1 ml/ Total Parenteral Nutrition/Amino Acids/Dextrose/ Fat Emulsion Intravenous 1,512 ml @ 63 mls/hr TPN CONT IV Last administered on 02/10/19at 21:09; Start 02/10/19 at 22:00; Stop 02/11/19 at 21:59 Haloperidol (Haldol) 2 mg TID PO ; Start 02/11/19 at 09:00; Stop 02/11/19 at 08:40; Status DC Alprazolam (Xanax) 0.5 mg TID PO Last administered on 02/11/19at 10:26; Start 02/11/19 at 09:00 Haloperidol Lactate (HALDOL 2mg ORAL CONC) 2 mg TID PO Last administered on 02/11/19at 10:26; Start 02/11/19 at 09:00 Active Scripts Active Lactulose 20 Gm/30 Ml Solution 20 Gm PO PRN TID PRN 30 Days Zofran (Ondansetron Hcl) 4 Mg Tablet 1 Tab PO Q6HRS 30 Days Hydrocodone-Apap 5-325 (Hydrocodone Bit/Acetaminophen) 1 Tab Tablet 1 Tab PO PRN Q6HRS PRN 6 Days Pantoprazole Sodium (Pantoprazole Sodium) 40 Mg Tablet.dr 40 Mg PO DAILYAC 30 Days Lorazepam 1 Mg Tablet 1 Mg PO PRN Q6HRS PRN 6 Days Reported Proair Hfa Inhaler (Albuterol Sulfate) 8.5 Gm Hfa.aer.ad 1 Puff INH PRN Q6HRS PRN Trelegy Ellipta 100-62.5-25 (Fluticasone/Umeclidin/Vilanter) 1 Each Blst.w.dev 1 Puff PO DAILY Vitals/I & O Vital Sign - Last 24 Hours 02/10/19 02/10/19 02/10/19 02/10/19 11:50 12:59 15:00 15:35 Temp 98.4 98.4 Pulse 128 Resp 22 B/P (MAP) 131/63 (85) Pulse Ox 97 97 96 O2 Delivery Room Air Room Air Room Air Room Air O2 Flow Rate 95.0 02/10/19 02/10/19 02/10/19 02/10/19 19:30 19:44 20:50 20:55 Temp 97.0 97.0 Pulse 124 Resp 16 20 B/P (MAP) 127/70 (89) Pulse Ox 95 98 O2 Delivery Room Air Room Air Room Air Room Air 02/10/19 02/11/19 02/11/19 02/11/19 23:23 01:23 02:30 03:56 Temp 98.0 98.0 Pulse 129 131 Resp 20 20 16 20 B/P (MAP) 127/65 (85) 124/67 (86) Pulse Ox 98 99 O2 Delivery Room Air Room Air Room Air 02/11/19 02/11/19 02/11/19 02/11/19 04:04 04:04 04:05 05:02 Resp 18 18 16 18 O2 Delivery Room Air Room Air Room Air Room Air 02/11/19 02/11/19 02/11/19 02/11/19 05:58 07:00 07:06 07:14 Pulse 127 Resp 16 16 B/P (MAP) 133/80 (97) Pulse Ox 99 98 O2 Delivery Room Air Room Air Room Air Room Air 02/11/19 02/11/19 02/11/19 02/11/19 10:26 10:26 10:26 10:53 Pulse 127 B/P (MAP) 133/80 O2 Delivery Room Air Room Air Room Air 02/11/19 11:19 Pulse Ox 98 O2 Delivery Room Air Intake and Output 02/10/19 02/10/19 02/11/19 15:00 23:00 07:00 Intake Total 50 ml 290 ml Output Total 200 ml 600 ml 700 ml Balance -200 ml -550 ml -410 ml REAL RIOJAS MD Feb 11, 2019 11:32
[2019-02-11] MEDS: TPN PER PHARMACY MC PRN (12:15)
[2019-02-11 12:54] LABS: % ATYL 1 % (0-0); % BANDS 9 % (0-9); % LYMPHS 4 % (24-48); % METAS 2 % (0-0); % MONOS 3 % (0-10); % SEGS 81 % (35-66)
[2019-02-11 12:55] LABS: ANISOCYTOSIS SLIGHT; PLT ESTIMATE ADEQUATE (ADEQUATE)
--- NOTE | 2019-02-11 14:38 | PDOC ---
SURGICAL PROGRESS NOTE Subjective Pt laying in bed, orients to voice Vital Signs Vital Signs Date Time Temp Pulse Resp B/P (MAP) Pulse Ox O2 Delivery O2 Flow Rate FiO2 02/11/19 11:19 98 Room Air 02/11/19 11:00 98.1 127 18 114/76 (89) 98.1 02/10/19 12:59 95.0 I&O Intake and Output 02/11/19 07:00 Intake Total 340 ml Output Total 1500 ml Balance -1160 ml Intake Oral 150 ml IV Total 190 ml Output Urine Total 750 ml Drainage Total 750 ml General: Alert, mild distress Abdomen: Soft, No tenderness, Other (G-tube in place, ascites draining at drain sites) Labs Laboratory Tests Test 02/10/19 00:36 02/10/19 05:30 02/10/19 12:01 02/10/19 21:08 Glucose (Fingerstick) 160 mg/dL (70-99) 212 mg/dL (70-99) 149 mg/dL (70-99) Sodium Level 133 mmol/L (136-145) Potassium Level 5.0 mmol/L (3.5-5.1) Chloride Level 104 mmol/L (98-107) Carbon Dioxide Level 23 mmol/L (21-32) Anion Gap 6 (6-14) Blood Urea Nitrogen 27 mg/dL (7-20) Creatinine 0.7 mg/dL (0.6-1.0) Estimated GFR (Cockcroft-Gault) 85.9 BUN/Creatinine Ratio 39 (6-20) Glucose Level 135 mg/dL (70-99) Calcium Level 8.1 mg/dL (8.5-10.1) Total Bilirubin 0.7 mg/dL (0.2-1.0) Aspartate Amino Transf (AST/SGOT) 50 U/L (15-37) Alanine Aminotransferase (ALT/SGPT) 31 U/L (14-59) Alkaline Phosphatase 206 U/L (46-116) Total Protein 5.5 g/dL (6.4-8.2) Albumin 1.4 g/dL (3.4-5.0) Albumin/Globulin Ratio 0.3 (1.0-1.7) Triglycerides Level 42 mg/dL (0-150) Test 02/11/19 01:37 02/11/19 05:10 02/11/19 08:08 02/11/19 11:11 Glucose (Fingerstick) 115 mg/dL (70-99) 142 mg/dL (70-99) 132 mg/dL (70-99) White Blood Count 32.4 x10^3/uL (4.0-11.0) Red Blood Count 3.07 x10^6/uL (3.50-5.40) Hemoglobin 10.2 g/dL (12.0-15.5) Hematocrit 31.1 % (36.0-47.0) Mean Corpuscular Volume 101 fL (79-100) Mean Corpuscular Hemoglobin 33 pg (25-35) Mean Corpuscular Hemoglobin Concent 33 g/dL (31-37) Red Cell Distribution Width 14.6 % (11.5-14.5) Platelet Count 263 x10^3/uL (140-400) Neutrophils (%) (Auto) 81 % (31-73) Lymphocytes (%) (Auto) 11 % (24-48) Monocytes (%) (Auto) 8 % (0-9) Eosinophils (%) (Auto) 0 % (0-3) Basophils (%) (Auto) 1 % (0-3) Neutrophils # (Auto) 26.2 x10^3/uL (1.8-7.7) Lymphocytes # (Auto) 3.4 x10^3/uL (1.0-4.8) Monocytes # (Auto) 2.5 x10^3/uL (0.0-1.1) Eosinophils # (Auto) 0.1 x10^3/uL (0.0-0.7) Basophils # (Auto) 0.2 x10^3/uL (0.0-0.2) Segmented Neutrophils % 81 % (35-66) Band Neutrophils % 9 % (0-9) Lymphocytes % 4 % (24-48) Atypical Lymphocytes % (Manual) 1 % (0-0) Monocytes % 3 % (0-10) Metamyelocytes % 2 % (0-0) Platelet Estimate Adequate (ADEQUATE) Anisocytosis Slight Macrocytosis Present Sodium Level 130 mmol/L (136-145) Potassium Level 4.4 mmol/L (3.5-5.1) Chloride Level 100 mmol/L (98-107) Carbon Dioxide Level 25 mmol/L (21-32) Anion Gap 5 (6-14) Blood Urea Nitrogen 27 mg/dL (7-20) Creatinine 0.6 mg/dL (0.6-1.0) Estimated GFR (Cockcroft-Gault) 102.7 Glucose Level 122 mg/dL (70-99) Calcium Level 7.6 mg/dL (8.5-10.1) Laboratory Tests Test 02/10/19 21:08 02/11/19 01:37 02/11/19 05:10 02/11/19 08:08 Glucose (Fingerstick) 149 mg/dL (70-99) 115 mg/dL (70-99) 142 mg/dL (70-99) White Blood Count 32.4 x10^3/uL (4.0-11.0) Red Blood Count 3.07 x10^6/uL (3.50-5.40) Hemoglobin 10.2 g/dL (12.0-15.5) Hematocrit 31.1 % (36.0-47.0) Mean Corpuscular Volume 101 fL (79-100) Mean Corpuscular Hemoglobin 33 pg (25-35) Mean Corpuscular Hemoglobin Concent 33 g/dL (31-37) Red Cell Distribution Width 14.6 % (11.5-14.5) Platelet Count 263 x10^3/uL (140-400) Neutrophils (%) (Auto) 81 % (31-73) Lymphocytes (%) (Auto) 11 % (24-48) Monocytes (%) (Auto) 8 % (0-9) Eosinophils (%) (Auto) 0 % (0-3) Basophils (%) (Auto) 1 % (0-3) Neutrophils # (Auto) 26.2 x10^3/uL (1.8-7.7) Lymphocytes # (Auto) 3.4 x10^3/uL (1.0-4.8) Monocytes # (Auto) 2.5 x10^3/uL (0.0-1.1) Eosinophils # (Auto) 0.1 x10^3/uL (0.0-0.7) Basophils # (Auto) 0.2 x10^3/uL (0.0-0.2) Segmented Neutrophils % 81 % (35-66) Band Neutrophils % 9 % (0-9) Lymphocytes % 4 % (24-48) Atypical Lymphocytes % (Manual) 1 % (0-0) Monocytes % 3 % (0-10) Metamyelocytes % 2 % (0-0) Platelet Estimate Adequate (ADEQUATE) Anisocytosis Slight Macrocytosis Present Sodium Level 130 mmol/L (136-145) Potassium Level 4.4 mmol/L (3.5-5.1) Chloride Level 100 mmol/L (98-107) Carbon Dioxide Level 25 mmol/L (21-32) Anion Gap 5 (6-14) Blood Urea Nitrogen 27 mg/dL (7-20) Creatinine 0.6 mg/dL (0.6-1.0) Estimated GFR (Cockcroft-Gault) 102.7 Glucose Level 122 mg/dL (70-99) Calcium Level 7.6 mg/dL (8.5-10.1) Test 02/11/19 11:11 Glucose (Fingerstick) 132 mg/dL (70-99) Problem List s/p whipple Assessment/Plan cont supportive care d/c planning cont nutrition HÉCTOR RANDALL MD Feb 11, 2019 14:38
[2019-02-11 15:00] VITALS: BP 116/55
[2019-02-11 19:00] VITALS: BP 92/45
[2019-02-11] MEDS ORDERED: DEXTROSE 70% IV SCH ×11 (22:00)
[2019-02-11] MEDS ORDERED: AMINO ACID IV SCH ×11 (22:00)
[2019-02-11] MEDS ORDERED: [UNRECOGNIZED DRUG - OTHER] IV SCH ×11 (22:00)
[2019-02-11] MEDS ORDERED: TOTAL PARENTERAL NUTRITION IV SCH ×11 (22:00)
[2019-02-11 23:00] VITALS: BP 112/47
[2019-02-12] MEDS: HYDROmorphone 2 MG/ML VIAL IV PRN ×2 (02:39→06:00)
[2019-02-12 07:00] VITALS: BP 120/71
[2019-02-12] MEDS: BUDESONIDE 0.5 MG/2 ML NEBU. NEB SCH (07:50)
[2019-02-12] MEDS: IPRATRPIUM/ALBUTEROL 0.5/2.5MG 3 ML NEBU. NEB SCH ×2 (07:50→11:42)
[2019-02-12] MEDS: ALPRAZolam 0.5 MG TABLET PO SCH ×2 (09:00→14:19)
[2019-02-12] MEDS: HALOPERIDOL 2 MG/ML ORAL.CONC. PO SCH ×2 (09:00→14:25)
--- NOTE | 2019-02-12 09:01 | PDOC ---
PROGRESS NOTES Subjective Subjective HPI - f/u of T2, N1 pancreatic cancer ROS - no fever Objective Objective Vital Signs Date Time Temp Pulse Resp B/P (MAP) Pulse Ox O2 Delivery O2 Flow Rate FiO2 02/12/19 07:51 Room Air 02/12/19 07:00 98.7 119 18 120/71 (87) 97 98.7 02/11/19 23:00 95.0 Intake and Output 02/12/19 06:59 Intake Total 0 ml Output Total 1000 ml Balance -1000 ml Intake Oral 0 ml Drainage Total 1000 ml # Voids 1 Physical Exam General: Alert, No acute distress Neck: No JVD Assessment Assessment IMPRESSION AND PLAN: 1. T2, N1 pancreatic cancer. Liver biopsy is still pending. She underwent Whipple surgery on 01/27/2019. I reviewed the case at multidisciplinary tumor conference. Plan to continue postoperative care. Await biopsy of the liver. If it is negative, I will plan for adjuvant chemotherapy with Gemzar and Xeloda after she completely recovers. I will plan for a followup visit at my office in 3 to 4 weeks. I d/w RN 2. Leukocytosis, reactive. Infectious Disease has been consulted. Fever has improved. She did have a CT scan on 02/01/2019 which revealed gas and fluid collection at the gallbladder fossa. There is also evidence of hepatic cirrhosis. Continue supportive care management. WBC 32.4. 3. Cirrhosis of the liver. Continue supportive care. 4. Anemia - Hb 10.2 Comment Review of Relevant I have reviewed the following items dante (where applicable) has been applied. Labs Laboratory Tests Test 02/10/19 12:01 02/10/19 21:08 02/11/19 01:37 02/11/19 05:10 Glucose (Fingerstick) 212 mg/dL (70-99) 149 mg/dL (70-99) 115 mg/dL (70-99) White Blood Count 32.4 x10^3/uL (4.0-11.0) Red Blood Count 3.07 x10^6/uL (3.50-5.40) Hemoglobin 10.2 g/dL (12.0-15.5) Hematocrit 31.1 % (36.0-47.0) Mean Corpuscular Volume 101 fL (79-100) Mean Corpuscular Hemoglobin 33 pg (25-35) Mean Corpuscular Hemoglobin Concent 33 g/dL (31-37) Red Cell Distribution Width 14.6 % (11.5-14.5) Platelet Count 263 x10^3/uL (140-400) Neutrophils (%) (Auto) 81 % (31-73) Lymphocytes (%) (Auto) 11 % (24-48) Monocytes (%) (Auto) 8 % (0-9) Eosinophils (%) (Auto) 0 % (0-3) Basophils (%) (Auto) 1 % (0-3) Neutrophils # (Auto) 26.2 x10^3/uL (1.8-7.7) Lymphocytes # (Auto) 3.4 x10^3/uL (1.0-4.8) Monocytes # (Auto) 2.5 x10^3/uL (0.0-1.1) Eosinophils # (Auto) 0.1 x10^3/uL (0.0-0.7) Basophils # (Auto) 0.2 x10^3/uL (0.0-0.2) Segmented Neutrophils % 81 % (35-66) Band Neutrophils % 9 % (0-9) Lymphocytes % 4 % (24-48) Atypical Lymphocytes % (Manual) 1 % (0-0) Monocytes % 3 % (0-10) Metamyelocytes % 2 % (0-0) Platelet Estimate Adequate (ADEQUATE) Anisocytosis Slight Macrocytosis Present Sodium Level 130 mmol/L (136-145) Potassium Level 4.4 mmol/L (3.5-5.1) Chloride Level 100 mmol/L (98-107) Carbon Dioxide Level 25 mmol/L (21-32) Anion Gap 5 (6-14) Blood Urea Nitrogen 27 mg/dL (7-20) Creatinine 0.6 mg/dL (0.6-1.0) Estimated GFR (Cockcroft-Gault) 102.7 Glucose Level 122 mg/dL (70-99) Calcium Level 7.6 mg/dL (8.5-10.1) Test 02/11/19 08:08 02/11/19 11:11 02/11/19 23:34 Glucose (Fingerstick) 142 mg/dL (70-99) 132 mg/dL (70-99) 145 mg/dL (70-99) Laboratory Tests Test 02/11/19 11:11 02/11/19 23:34 Glucose (Fingerstick) 132 mg/dL (70-99) 145 mg/dL (70-99) Microbiology 02/01/19 Urine Culture - Final, Complete 02/01/19 Urine Culture Result 1 ([facility]) - Final, Complete 02/01/19 Blood Culture - Final, Complete NO GROWTH AFTER 5 DAYS Medications Current Medications Ondansetron HCl (Zofran) 4 mg PRN Q6HRS PRN IV NAUSEA/VOMITING; Start 01/27/19 at 07:00; Stop 01/28/19 at 06:59; Status DC Fentanyl Citrate (Fentanyl 2ml Vial) 25 mcg PRN Q5MIN PRN IV MILD PAIN 1-3; Start 01/27/19 at 07:00; Stop 01/28/19 at 06:59; Status DC Fentanyl Citrate (Fentanyl 2ml Vial) 50 mcg PRN Q5MIN PRN IV MODERATE TO SEVERE PAIN; Start 01/27/19 at 07:00; Stop 01/28/19 at 06:59; Status DC Morphine Sulfate (Morphine Sulfate) 1 mg PRN Q10MIN PRN IV SEVERE PAIN 7-10; Start 01/27/19 at 07:00; Stop 01/28/19 at 06:59; Status DC Ringer's Solution 1,000 ml @ 30 mls/hr Q24H IV Last administered on 01/27/19at 08:15; Start 01/27/19 at 07:00; Stop 01/27/19 at 18:59; Status DC Hydromorphone HCl (Dilaudid) 0.5 mg PRN Q10MIN PRN IV SEV PAIN, Second choice; Start 01/27/19 at 07:00; Stop 01/28/19 at 06:59; Status DC Prochlorperazine Edisylate (Compazine) 5 mg PACU PRN PRN IV NAUSEA, MRX1 Last administered on 01/28/19at 03:33; Start 01/27/19 at 07:00; Stop 01/28/19 at 06:59; Status DC Cefoxitin Sodium (Mefoxin) 2 gm 1X PREOP PRN IVP SURGERY Last administered on 01/27/19at 12:18; Start 01/27/19 at 06:00; Stop 01/28/19 at 10:13; Status DC Sevoflurane (Ultane) 90 ml STK-MED ONCE IH ; Start 01/27/19 at 09:11; Stop 01/27/19 at 09:11; Status DC Rocuronium Pacific (Zemuron) 50 mg STK-MED ONCE .ROUTE ; Start 01/27/19 at 09:11; Stop 01/27/19 at 09:11; Status DC Fentanyl Citrate (Fentanyl 2ml Vial) 100 mcg STK-MED ONCE .ROUTE ; Start 01/27/19 at 09:11; Stop 01/27/19 at 09:11; Status DC Neostigmine Methylsulfate (Neostigmine Methylsulfate) 5 mg STK-MED ONCE .ROUTE ; Start 01/27/19 at 09:11; Stop 01/27/19 at 09:11; Status DC Midazolam HCl (Versed) 2 mg STK-MED ONCE .ROUTE ; Start 01/27/19 at 09:11; Stop 01/27/19 at 09:11; Status DC Glycopyrrolate (Robinul) 1 mg STK-MED ONCE .ROUTE ; Start 01/27/19 at 09:11; Stop 01/27/19 at 09:11; Status DC Phenylephrine HCl (Bret-Synephrine Inj) 10 mg STK-MED ONCE .ROUTE ; Start 01/27/19 at 09:11; Stop 01/27/19 at 09:12; Status DC Dexamethasone Sodium Phosphate (Decadron) 4 mg STK-MED ONCE .ROUTE ; Start 01/27/19 at 09:11; Stop 01/27/19 at 09:12; Status DC Ondansetron HCl (Zofran) 4 mg STK-MED ONCE .ROUTE ; Start 01/27/19 at 09:12; Stop 01/27/19 at 09:12; Status DC Lidocaine HCl (Lidocaine Pf 2% Vial) 5 ml STK-MED ONCE .ROUTE ; Start 01/27/19 at 09:12; Stop 01/27/19 at 09:12; Status DC Propofol 20 ml @ As Directed STK-MED ONCE IV ; Start 01/27/19 at 09:12; Stop 01/27/19 at 09:12; Status DC Sodium Chloride (Normal Saline Flush) 3 ml QSHIFT PRN IV AFTER MEDS AND BLOOD DRAWS; Start 01/27/19 at 09:30; Stop 02/03/19 at 09:09; Status DC Ibuprofen (Motrin) 400 mg PRN Q6HRS PRN PO MILD PAIN 1-3; Start 01/27/19 at 09:30 Naloxone HCl (Narcan) 0.4 mg PRN Q2MIN PRN IV SEE INSTRUCTIONS; Start 01/27/19 at 09:30; Stop 01/31/19 at 09:15; Status DC Sodium Chloride 1,000 ml @ 25 mls/hr Q24H IV ; Start 01/27/19 at 09:28; Stop 01/30/19 at 14:52; Status DC Ondansetron HCl (Zofran) 4 mg PRN Q6HRS PRN IV Nausea, 2nd Choice; Start 01/27/19 at 09:30; Status Cancel Epinephrine HCl (EPINEPHrine SYRINGE) 1 mg STK-MED ONCE .ROUTE ; Start 01/27/19 at 10:15; Stop 01/27/19 at 10:16; Status DC Lidocaine HCl (Lidocaine Pf 2% Vial) 5 ml STK-MED ONCE .ROUTE ; Start 01/27/19 at 10:15; Stop 01/27/19 at 10:16; Status DC Ropivacaine (Naropin 0.5%) 20 ml STK-MED ONCE .ROUTE ; Start 01/27/19 at 10:17; Stop 01/27/19 at 10:18; Status DC Cellulose (Surgicel Hemostat 4x8) 1 each STK-MED ONCE .ROUTE Last administered on 01/27/19at 11:25; Start 01/27/19 at 11:24; Stop 01/27/19 at 11:25; Status DC Cellulose (Surgicel Hemostat 4x8) 1 each STK-MED ONCE .ROUTE Last administered on 01/27/19at 11:39; Start 01/27/19 at 11:38; Stop 01/27/19 at 11:38; Status DC Rocuronium Pacific (Zemuron) 50 mg STK-MED ONCE .ROUTE ; Start 01/27/19 at 12:09; Stop 01/27/19 at 12:09; Status DC Cefoxitin Sodium (Mefoxin) 2 gm 1X ONCE IVP Last administered on 01/27/19at 12:33; Start 01/27/19 at 12:30; Stop 01/27/19 at 12:31; Status DC Phenylephrine HCl (Bret-Synephrine Inj) 10 mg STK-MED ONCE .ROUTE ; Start 01/27/19 at 14:49; Stop 01/27/19 at 14:49; Status DC Sodium Chloride 35 ml/Fentanyl Citrate 250 mcg/ Ropivacaine 10 ml/ Epidural Dosage Infused (Pha) 50 ml @ 0 mls/hr CONT EPID ; Start 01/27/19 at 15:00; Status UNV Sodium Chloride 35 ml/Fentanyl Citrate 250 mcg/ Ropivacaine 10 ml/ Epidural Dosage Infused (Pha) 50 ml @ 0 mls/hr CONT PRN EPID SEE PROTOCOL TABLE Last administered on 01/28/19at 05:00; Start 01/27/19 at 15:00; Stop 01/28/19 at 08:11; Status DC Cefoxitin Sodium (Mefoxin) 2 gm 1X PREOP PRN IVP SURGERY Last administered on 01/27/19at 16:47; Start 01/27/19 at 15:15; Stop 01/28/19 at 10:13; Status DC Famotidine (Pepcid Vial) 20 mg BID IVP Last administered on 02/11/19at 20:23; Start 01/27/19 at 21:00 Enoxaparin Sodium (Lovenox 40mg Syringe) 40 mg Q24H SQ Last administered on 01/29/19at 12:24; Start 01/28/19 at 09:00; Stop 01/29/19 at 17:14; Status DC Sodium Chloride (Normal Saline Flush) 3 ml QSHIFT PRN IV AFTER MEDS AND BLOOD DRAWS; Start 01/27/19 at 15:45 Ringer's Solution 1,000 ml @ 100 mls/hr Q10H IV Last administered on 01/30/19at 03:20; Start 01/27/19 at 15:33; Stop 01/30/19 at 14:52; Status DC Naloxone HCl (Narcan) 0.4 mg PRN Q2MIN PRN IV SEE INSTRUCTIONS; Start 01/27/19 at 15:45 Sodium Chloride 1,000 ml @ 25 mls/hr Q24H IV ; Start 01/27/19 at 15:33; Stop 01/28/19 at 15:52; Status DC Ondansetron HCl (Zofran) 4 mg PRN Q6HRS PRN IV NAUESA, 1ST CHOICE Last administered on 02/01/19at 23:49; Start 01/27/19 at 15:45 Sodium Chloride 35 ml/Fentanyl Citrate 250 mcg/ Ropivacaine 10 ml/ Epidural Dosage Infused (Pha) 50 ml @ 0 mls/hr CONT PRN EPID SEE PROTOCOL TABLE Last administered on 02/01/19 08:00; Start 01/28/19 at 08:15; Stop 02/01/19 at 10:03; Status DC Throat Lozenges (Cepacol Sore Throat Lozenge) 1 karthikeyan PRN Q2HRS PRN PO SORE THROAT Last administered on 02/11/19 01:23; Start 01/28/19 at 09:30 Lorazepam (Ativan Inj) 0.5 mg PRN Q6HRS PRN IV ANXIETY AGITATION, 1ST CHOICE Last administered on 01/31/19at 21:13; Start 01/28/19 at 12:30; Stop 02/06/19 at 10:42; Status DC Thiamine HCl 100 mg DAILY IM Last administered on 01/30/19 09:12; Start 01/28/19 at 13:00; Stop 01/31/19 at 11:44; Status DC Lorazepam (Ativan Inj) 2 mg PRN Q1HR PRN IV For CIWA 8-14 Last administered on 02/06/19at 03:27; Start 01/28/19 at 13:00; Stop 02/06/19 at 10:42; Status DC Lorazepam (Ativan Inj) 4 mg PRN Q1HR PRN IV For CIWA 15 or greater; Start 01/28/19 at 13:00; Stop 02/06/19 at 10:42; Status DC Haloperidol Lactate (Haldol Inj) 5 mg PRN Q4HRS PRN IVP Hallucinatns,Confusn,Delirium Last administered on 02/06/19at 21:35; Start 01/28/19 at 13:00; Stop 02/11/19 at 09:28; Status DC Diphenhydramine HCl (Benadryl) 25 mg PRN Q15MIN PRN IVP EPS symptoms 2'Haldol admin; Start 01/28/19 at 13:00 Lorazepam (Ativan Inj) 2 mg PRN Q15MIN PRN IV SEE COMMENTS Last administered on 02/05/19at 01:12; Start 01/28/19 at 13:00; Stop 02/06/19 at 10:42; Status DC Lorazepam (Ativan Inj) 4 mg PRN Q15MIN PRN IV SEE COMMENTS Last administered on 02/05/19at 02:29; Start 01/28/19 at 13:00; Stop 02/06/19 at 10:42; Status DC Albuterol/ Ipratropium (Duoneb) 3 ml RTQID NEB Last administered on 02/12/19at 07:50; Start 01/28/19 at 13:00 Non-Formulary Medication (Fluticasone/ Umeclidin/ Vilanter (Trelegy Ellipta 100-62.5-25)) 1 puff DAILY PO ; Start 01/29/19 at 09:00; Status UNV Budesonide (Pulmicort) 0.5 mg RTBID NEB Last administered on 02/12/19at 07:50; Start 01/28/19 at 20:00 Albuterol Sulfate (Ventolin Neb Soln) 2.5 mg PRN Q6HRS PRN INH SHORTNESS OF B REATH; Start 01/28/19 at 14:00 Lorazepam (Ativan) 1 mg PRN Q6HRS PRN PO ANXIETY / AGITATION Last administered on 02/04/19at 12:07; Start 01/28/19 at 14:00; Stop 02/04/19 at 12:58; Status DC Pantoprazole Sodium (Protonix) 40 mg DAILYAC PO Last administered on 02/11/19at 05:02; Start 01/28/19 at 16:30 Metoprolol Tartrate (Lopressor Vial) 12.5 mg BID IVP ; Start 01/29/19 at 21:00; Stop 01/29/19 at 14:50; Status DC Metoprolol Tartrate (Lopressor) 12.5 mg BID PO Last administered on 02/11/19at 10:26; Start 01/29/19 at 17:00 Amino Acids/ Glycerin/ Electrolytes 1,000 ml @ 75 mls/hr [id number] IV Last administered on 02/02/19at 18:20; Start 01/30/19 at 11:30; Stop 02/02/19 at 21:59; Status DC Acetaminophen (Tylenol) 650 mg PRN Q6HRS PRN PO fever Last administered on 02/01/19at 08:45; Start 01/31/19 at 01:15 Thiamine Mononitrate (Vitamin B-1) 100 mg DAILY PO Last administered on 02/11/19at 10:26; Start 01/31/19 at 12:30 Heparin Sodium (Porcine) (Heparin Sodium) 5,000 unit Q12HR SQ Last administered on 02/11/19at 20:27; Start 01/31/19 at 14:00 Piperacillin Sod/ Tazobactam Sod 3.375 gm/Sodium Chloride 50 ml @ 100 mls/hr Q6HRS IV Last administered on 02/04/19at 05:58; Start 02/01/19 at 10:00; Stop 02/04/19 at 06:32; Status DC Linezolid/Dextrose 300 ml @ 300 mls/hr Q12HR IV Last administered on 02/03/19at 21:30; Start 02/01/19 at 10:00; Stop 02/04/19 at 06:32; Status DC Micafungin Sodium 100 mg/Dextrose 100 ml @ 100 mls/hr Q24H IV Last administered on 02/08/19at 10:27; Start 02/01/19 at 11:00; Stop 02/08/19 at 12:04; Status DC Sodium Chloride 35 ml/Fentanyl Citrate 250 mcg/ Ropivacaine 10 ml/ Epidural Dosage Infused (Pha) 50 ml @ 0 mls/hr CONT PRN EPID SEE PROTOCOL TABLE Last administered on 02/01/19at 11:16; Start 02/01/19 at 10:15; Stop 02/04/19 at 09:09; Status DC Fentanyl Citrate (Fentanyl 2ml Vial) 25 mcg PRN Q5MIN PRN IV MILD PAIN 1-3; Start 02/01/19 at 14:00; Stop 02/02/19 at 13:59; Status DC Fentanyl Citrate (Fentanyl 2ml Vial) 50 mcg PRN Q5MIN PRN IV MODERATE TO SEVERE PAIN Last administered on 02/02/19at 09:09; Start 02/01/19 at 14:00; Stop 02/02/19 at 13:59; Status DC Hydromorphone HCl (Dilaudid) 1 mg PRN Q2HR PRN IV PAIN Last administered on 02/06/19at 09:11; Start 02/01/19 at 16:30; Stop 02/06/19 at 10:42; Status DC Ketorolac Tromethamine (Toradol 30mg Vial) 30 mg 1X ONCE IV Last administered on 02/01/19at 16:43; Start 02/01/19 at 16:30; Stop 02/01/19 at 16:31; Status DC Sodium Chloride 500 ml @ 500 mls/hr 1X ONCE IV Last administered on 02/02/19at 05:37; Start 02/02/19 at 05:30; Stop 02/02/19 at 06:29; Status DC Hydromorphone HCl 30 ml @ 0 mls/hr CONT PRN PRN IV PER PROTOCOL Last administered on 02/02/19at 10:32; Start 02/02/19 at 09:00; Stop 02/04/19 at 09:09; Status DC Info (Tpn Per Pharmacy) 1 each PRN DAILY PRN MC SEE COMMENTS Last administered on 02/11/19at 12:15; Start 02/02/19 at 10:00 Sodium Phosphate 20 mmol/Dextrose 256.6667 ml @ 64.167 m... 1X ONCE IV Last administered on 02/02/19at 14:38; Start 02/02/19 at 11:00; Stop 02/02/19 at 14:59; Status DC Furosemide (Lasix) 20 mg 1X ONCE IVP Last administered on 02/02/19at 16:16; Start 02/02/19 at 16:00; Stop 02/02/19 at 16:01; Status DC Lidocaine/Sodium Bicarbonate (Buffered Lidocaine 1%) 3 ml 1X ONCE INJ ; Start 02/02/19 at 14:00; Stop 02/02/19 at 14:05; Status DC Sodium Chloride 80 meq/Potassium Chloride 40 meq/ Sodium Phosphate 13.6 mmol/ Magnesium Sulfate 10 meq/Calcium Gluconate 10 meq/ Multivitamins 10 ml/Chromium/ Copper/Manganese/ Seleni/Zn 1 ml/ Total Parenteral Nutrition/Amino Acids/Dextrose/ Fat Emulsion Intravenous 1,512 ml @ 63 mls/hr TPN CONT IV Last administered on 02/02/19at 21:50; Start 02/02/19 at 22:00; Stop 02/03/19 at 21:59; Status DC Potassium Phosphate 15 mmol/ Sodium Chloride 255 ml @ 127.5 mls/ hr 1X ONCE IV Last administered on 02/03/19at 11:35; Start 02/03/19 at 11:00; Stop 02/03/19 at 12:59; Status DC Potassium Chloride (Klor-Con) 40 meq 1X ONCE PO Last administered on 02/03/19at 21:30; Start 02/03/19 at 11:30; Stop 02/03/19 at 11:31; Status DC Sodium Chloride 120 meq/Potassium Chloride 50 meq/ Sodium Phosphate 20.4 mmol/ Magnesium Sulfate 10 meq/Calcium Gluconate 10 meq/ Multivitamins 10 ml/Chromium/ Copper/Manganese/ Seleni/Zn 1 ml/ Total Parenteral Nutrition/Amino Acids/Dextrose/ Fat Emulsion Intravenous 1,512 ml @ 63 mls/hr TPN CONT IV Last administered on 02/03/19at 21:30; Start 02/03/19 at 22:00; Stop 02/04/19 at 21:59; Status DC Potassium Chloride (Klor-Con) 40 meq 1X ONCE PO Last administered on 02/03/19at 21:31; Start 02/03/19 at 21:00; Stop 02/03/19 at 21:01; Status DC Meropenem 500 mg/ Sodium Chloride 50 ml @ 100 mls/hr Q6HRS IV Last administered on 02/08/19at 05:55; Start 02/04/19 at 07:00; Stop 02/08/19 at 12:04; Status DC Oxycodone/ Acetaminophen (Percocet 5/325) 1 tab PRN Q4HRS PRN PO MODERATE TO SEVERE PAIN Last administered on 02/11/19at 01:23; Start 02/04/19 at 09:15 Docusate Sodium (Colace) 100 mg DAILY PO Last administered on 02/11/19at 10:26; Start 02/04/19 at 10:00 Iohexol (Omnipaque 350 Mg/ml) 75 ml 1X ONCE IV Last administered on 02/04/19at 12:30; Start 02/04/19 at 10:15; Stop 02/04/19 at 10:16; Status DC Info (CONTRAST GIVEN -- Rx MONITORING) 1 each PRN DAILY PRN MC SEE COMMENTS; Start 02/04/19 at 10:15; Stop 02/06/19 at 10:14; Status DC Lorazepam (Ativan) 1 mg PRN Q6HRS PRN PO ANXIETY / AGITATION Last administered on 02/04/19at 18:17; Start 02/04/19 at 13:00; Stop 02/06/19 at 10:42; Status DC Sodium Chloride 120 meq/Sodium Phosphate 24 mmol/ Potassium Chloride 50 meq/ Magnesium Sulfate 13 meq/Calcium Gluconate 10 meq/ Multivitamins 10 ml/Chromium/ Copper/Manganese/ Seleni/Zn 1 ml/ Total Parenteral Nutrition/Amino Acids/Dextrose/ Fat Emulsion Intravenous 1,512 ml @ 63 mls/hr TPN CONT IV Last administered on 02/04/19at 22:20; Start 02/04/19 at 22:00; Stop 02/05/19 at 21:59; Status DC Sodium Phosphate 15 mmol/Dextrose 255 ml @ 63.75 mls/ hr 1X ONCE IV Last administered on 02/04/19at 14:23; Start 02/04/19 at 14:00; Stop 02/04/19 at 17:59; Status DC Lorazepam (Ativan Inj) 2 mg PRN Q4HRS PRN IV ANXIETY/AGITATION (USE 2ND) Last administered on 02/04/19at 20:46; Start 02/04/19 at 20:15; Stop 02/06/19 at 10:42; Status DC Sodium Phosphate 20 mmol/Dextrose 256.6667 ml @ 64.167 m... 1X ONCE IV Last administered on 02/05/19at 12:56; Start 02/05/19 at 12:00; Stop 02/05/19 at 15:59; Status DC Sodium Chloride 120 meq/Sodium Phosphate 27 mmol/ Potassium Chloride 50 meq/ Magnesium Sulfate 13 meq/Calcium Gluconate 10 meq/ Multivitamins 10 ml/Chromium/ Copper/Manganese/ Seleni/Zn 1 ml/ Total Parenteral Nutrition/Amino Acids/Dextrose/ Fat Emulsion Intravenous 1,512 ml @ 63 mls/hr TPN CONT IV Last administered on 02/05/19at 23:33; Start 02/05/19 at 22:00; Stop 02/06/19 at 21:59; Status DC Lorazepam (Ativan Inj) 0.25 mg PRN Q6HRS PRN IV ANXIETY AGITATION, 1ST CHOICE Last administered on 02/10/19at 05:24; Start 02/06/19 at 10:45 Iohexol (Omnipaque 300 Mg/ml) 75 ml 1X ONCE IV Last administered on 02/06/19at 12:38; Start 02/06/19 at 12:00; Stop 02/06/19 at 12:01; Status DC Info (CONTRAST GIVEN -- Rx MONITORING) 1 each PRN DAILY PRN MC SEE COMMENTS; Start 02/06/19 at 11:45; Stop 02/08/19 at 11:44; Status DC Sodium Chloride 100 meq/Sodium Phosphate 20 mmol/ Potassium Chloride 50 meq/ Magnesium Sulfate 13 meq/Calcium Gluconate 10 meq/ Multivitamins 10 ml/Chromium/ Copper/Manganese/ Seleni/Zn 1 ml/ Total Parenteral Nutrition/Amino Acids/Dextros e/ Fat Emulsion Intravenous 1,512 ml @ 63 mls/hr TPN CONT IV Last administered on 02/06/19at 22:05; Start 02/06/19 at 22:00; Stop 02/07/19 at 21:59; Status DC Metronidazole 100 ml @ 100 mls/hr Q6H IV Last administered on 02/08/19at 03:57; Start 02/06/19 at 16:00; Stop 02/08/19 at 12:04; Status DC Hydromorphone HCl (Dilaudid) 1 mg PRN Q2HR PRN IV PAIN Last administered on 02/10/19at 00:12; Start 02/07/19 at 00:00; Stop 02/10/19 at 01:36; Status DC Metoprolol Tartrate (Lopressor Vial) 5 mg PRN Q6HRS PRN IVP hypertension; Start 02/07/19 at 00:00 Sodium Chloride 50 meq/Sodium Phosphate 20 mmol/ Potassium Chloride 50 meq/ Magnesium Sulfate 13 meq/Calcium Gluconate 10 meq/ Multivitamins 10 ml/Chromium/ Copper/Manganese/ Seleni/Zn 1 ml/ Total Parenteral Nutrition/Amino Acids/Dextrose/ Fat Emulsion Intravenous 1,512 ml @ 63 mls/hr TPN CONT IV Last administered on 02/07/19at 23:14; Start 02/07/19 at 22:00; Stop 02/08/19 at 21:59; Status DC Vancomycin HCl (Vancomycin Oral Solution) 125 mg [id number] PO Last administered on 02/11/19at 20:22; Start 02/08/19 at 09:00 Sodium Chloride 20 meq/Sodium Phosphate 20 mmol/ Potassium Chloride 20 meq/ Magnesium Sulfate 13 meq/Calcium Gluconate 10 meq/ Multivitamins 10 ml/Chromium/ Copper/Manganese/ Seleni/Zn 1 ml/ Total Parenteral Nutrition/Amino Acids/Dextrose/ Fat Emulsion Intravenous 1,512 ml @ 63 mls/hr TPN CONT IV Last administered on 02/08/19at 23:52; Start 02/08/19 at 22:00; Stop 02/09/19 at 21:59; Status DC Alprazolam (Xanax) 0.25 mg PRN Q8HRS PRN PO ANXIETY / AGITATION; Start 02/09/19 at 09:30 Quetiapine Fumarate (SEROquel XR) 50 mg DAILY PO Last administered on 02/11/19at 10:26; Start 02/09/19 at 12:45 Sodium Chloride 20 meq/Sodium Phosphate 20 mmol/ Potassium Chloride 10 meq/ Magnesium Sulfate 13 meq/Calcium Gluconate 10 meq/ Multivitamins 10 ml/Chromium/ Copper/Manganese/ Seleni/Zn 1 ml/ Total Parenteral Nutrition/Amino Acids/Dextrose/ Fat Emulsion Intravenous 1,512 ml @ 63 mls/hr TPN CONT IV Last administered on 02/09/19at 20:28; Start 02/09/19 at 22:00; Stop 02/10/19 at 21:59; Status DC Fentanyl Citrate (Fentanyl 2ml Vial) 100 mcg PRN Q2HR PRN IV PAIN Last administered on 02/11/19at 05:02; Start 02/10/19 at 01:45 Lorazepam (Ativan) 1 mg PRN Q8HRS PRN PO ANXIETY / AGITATION; Start 02/10/19 at 08:15; Status Cancel Lorazepam (Ativan Inj) 1 mg PRN Q8HRS PRN IV ANXIETY / AGITATION Last administered on 02/10/19at 21:09; Start 02/10/19 at 08:15 Hydromorphone HCl (Dilaudid) 0.5 mg PRN Q2HR ONCE IV Last administered on 02/10/19at 10:01; Start 02/10/19 at 09:00; Stop 02/10/19 at 09:01; Status DC Haloperidol Lactate (Haldol Inj) 5 mg PRN Q4HRS PRN IVP AGITATION Last administered on 02/11/19at 03:34; Start 02/10/19 at 09:00 Hydromorphone HCl (Dilaudid) 0.5 mg PRN Q2HR ONCE IV ; Start 02/10/19 at 10:15; Stop 02/10/19 at 10:58; Status DC Hydromorphone HCl (Dilaudid) 0.5 mg PRN Q2HR PRN IV PAIN, SECOND CHOICE Last administered on 02/12/19at 06:00; Start 02/10/19 at 11:00 Sodium Chloride 30 meq/Sodium Acetate 20 meq/ Sodium Phosphate 20 mmol/Potassium Chloride 5 meq/ Magnesium Sulfate 13 meq/Calcium Gluconate 10 meq/ Multivitamins 10 ml/Chromium/ Copper/Manganese/ Seleni/Zn 1 ml/ Total Parenteral Nutrition/Amino Acids/Dextrose/ Fat Emulsion Intravenous 1,512 ml @ 63 mls/hr TPN CONT IV Last administered on 02/10/19at 21:09; Start 02/10/19 at 22:00; Stop 02/11/19 at 21:59; Status DC Haloperidol (Haldol) 2 mg TID PO ; Start 02/11/19 at 09:00; Stop 02/11/19 at 08:40; Status DC Alprazolam (Xanax) 0.5 mg TID PO Last administered on 02/11/19at 20:22; Start 02/11/19 at 09:00 Haloperidol Lactate (HALDOL 2mg ORAL CONC) 2 mg TID PO Last administered on 02/11/19at 20:20; Start 02/11/19 at 09:00 Sodium Chloride 30 meq/Sodium Acetate 40 meq/ Sodium Phosphate 20 mmol/Potassium Chloride 5 meq/ Magnesium Sulfate 13 meq/Calcium Gluconate 10 meq/ Multivitamins 10 ml/Chromium/ Copper/Manganese/ Seleni/Zn 1 ml/ Total Parenteral Nutrition/Amino Acids/Dextrose/ Fat Emulsion Intravenous 1,512 ml @ 63 mls/hr TPN CONT IV Last administered on 02/11/19at 20:23; Start 02/11/19 at 22:00; Stop 02/12/19 at 21:59 Active Scripts Active Lactulose 20 Gm/30 Ml Solution 20 Gm PO PRN TID PRN 30 Days Zofran (Ondansetron Hcl) 4 Mg Tablet 1 Tab PO Q6HRS 30 Days Hydrocodone-Apap 5-325 (Hydrocodone Bit/Acetaminophen) 1 Tab Tablet 1 Tab PO PRN Q6HRS PRN 6 Days Pantoprazole Sodium (Pantoprazole Sodium) 40 Mg Tablet.dr 40 Mg PO DAILYAC 30 Days Lorazepam 1 Mg Tablet 1 Mg PO PRN Q6HRS PRN 6 Days Reported Proair Hfa Inhaler (Albuterol Sulfate) 8.5 Gm Hfa.aer.ad 1 Puff INH PRN Q6HRS PRN Trelegy Ellipta 100-62.5-25 (Fluticasone/Umeclidin/Vilanter) 1 Each Blst.w.dev 1 Puff PO DAILY Vitals/I & O Vital Sign - Last 24 Hours 02/11/19 02/11/19 02/11/19 02/11/19 10:26 10:26 10:26 10:53 Pulse 127 B/P (MAP) 133/80 O2 Delivery Room Air Room Air Room Air 02/11/19 02/11/19 02/11/19 02/11/19 11:00 11:19 15:00 15:01 Temp 98.1 98.1 Pulse 127 109 Resp 18 16 B/P (MAP) 114/76 (89) 116/55 (75) Pulse Ox 99 98 100 97 O2 Delivery Room Air Room Air Room Air Room Air 02/11/19 02/11/19 02/11/19 02/11/19 17:20 18:00 19:00 20:00 Temp 98.3 98.3 Pulse 106 Resp 20 B/P (MAP) 92/45 (61) Pulse Ox 99 O2 Delivery Room Air Room Air Room Air Room Air O2 Flow Rate 95.0 02/11/19 02/11/19 02/11/19 02/11/19 20:21 20:40 20:42 20:52 B/P (MAP) 92/45 O2 Delivery Room Air Room Air Room Air 02/11/19 02/12/19 02/12/19 02/12/19 23:00 02:39 03:00 03:12 Temp 98.3 98.3 Pulse 112 Resp 20 B/P (MAP) 112/47 (68) Pulse Ox 99 O2 Delivery Room Air Room Air Room Air Room Air O2 Flow Rate 95.0 02/12/19 02/12/19 02/12/19 02/12/19 06:00 06:33 07:00 07:51 Temp 98.7 98.7 Pulse 119 Resp 18 B/P (MAP) 120/71 (87) Pulse Ox 97 O2 Delivery Room Air Room Air Room Air Room Air Intake and Output 02/11/19 02/11/19 02/12/19 14:59 22:59 06:59 Intake Total 0 ml 0 ml Output Total 275 ml 725 ml Balance -275 ml -725 ml CANDIS OLEARY MD Feb 12, 2019 09:01
[2019-02-12] MEDS: PANTOPRAZOLE 40 MG TABLET.DR. PO SCH (09:16)
[2019-02-12] MEDS: VANCOMYCIN 125 MG/2.5 ML ORAL SOLUTION. PO SCH ×2 (09:16→11:55)
[2019-02-12] MEDS: QUEtiapine 50 MG TAB.ER.24H. PO SCH (09:17)
[2019-02-12] MEDS: THIAMINE 100 MG TABLET. PO SCH (09:17)
[2019-02-12] MEDS: DOCUSATE SODIUM 100 MG CAPSULE. PO SCH (09:17)
[2019-02-12] MEDS: METOPROLOL TART IMMED RELEASE 25 MG TABLET. PO SCH (09:17)
[2019-02-12] MEDS: FAMOTIDINE 20 MG/2 ML VIAL IVP SCH (09:18)
[2019-02-12] MEDS: HEPARIN for SUB-Q USE 5,000 UNIT/ML VIAL. SQ SCH (09:56)
[2019-02-12] MEDS: oxyCODONE/APAP 5/325 1 TAB TABLET PO PRN (11:56)
--- NOTE | 2019-02-12 11:57 | PDOC ---
Provider Note Provider Note sitter gone and I saw her ambulating the halls with physical therapy wide awake. LTAC today, Rx on chart - no change Full code dc summ done 02/11- no addendum needed MARY SILVESTRE MD Feb 12, 2019 11:57
--- NOTE | 2019-02-12 12:23 | PDOC ---
Provider Note Provider Note SURG Ramon for Dr Levin to [facility] today will follow as needed JAMEY HERRON MD Feb 12, 2019 12:23
[2019-02-12 15:18] VITALS: BP 89/50
== END 2019-02-12 16:00 | DRG 405 ==
LOC: OPSVCIP 07:31 → 1 WEST ICU 10:31 → 6 SOUTH 02-05 15:42 → 4 NORTH 02-10 16:17
PROVIDERS: ADMIT Surgery; ATTEND Surgery
PROC: 0FT40ZZ Resection of Gallbladder, Open Approach (ICD-10-PCS; 2019-01-27)
PROC: 0FB90ZZ Excision of Common Bile Duct, Open Approach (ICD-10-PCS; 2019-01-27)
PROC: 0DB90ZZ Excision of Duodenum, Open Approach (ICD-10-PCS; 2019-01-27)
PROC: 0FB00ZX Excision of Liver, Open Approach, Diagnostic (ICD-10-PCS; 2019-01-27)
PROC: 0DH63UZ Insertion of Feeding Device into Stomach, Percutaneous Approach (ICD-10-PCS; 2019-01-27)
PROC: 0FBG0ZZ Excision of Pancreas, Open Approach (ICD-10-PCS; principal; 2019-01-27 09:30)
PROC: 02HV33Z Insertion of Infusion Device into Superior Vena Cava, Percutaneous Approach (ICD-10-PCS; 2019-02-02)
PROC: B548ZZA Ultrasonography of Superior Vena Cava, Guidance (ICD-10-PCS; 2019-02-02)
DX: C25.9 Malignant neoplasm of pancreas, unspecified (principal); G92 Toxic encephalopathy; K85.90 Acute pancreatitis without necrosis or infection, unspecified; E43 Unspecified severe protein-calorie malnutrition; K76.6 Portal hypertension; F10.239 Alcohol dependence with withdrawal, unspecified; A04.72 Enterocolitis due to Clostridium difficile, not specified as recurrent; K56.7 Ileus, unspecified; J98.11 Atelectasis; E78.5 Hyperlipidemia, unspecified; J44.9 Chronic obstructive pulmonary disease, unspecified; K21.9 Gastro-esophageal reflux disease without esophagitis; G62.9 Polyneuropathy, unspecified; K75.9 Inflammatory liver disease, unspecified; F41.9 Anxiety disorder, unspecified; F17.210 Nicotine dependence, cigarettes, uncomplicated; Z82.5 Family history of asthma and other chronic lower respiratory diseases; E83.51 Hypocalcemia; E83.39 Other disorders of phosphorus metabolism; E87.6 Hypokalemia; K74.60 Unspecified cirrhosis of liver; D64.9 Anemia, unspecified; E83.42 Hypomagnesemia; Z78.1 Physical restraint status; Z90.711 Acquired absence of uterus with remaining cervical stump; Z90.13 Acquired absence of bilateral breasts and nipples; Z82.49 Family history of ischemic heart disease and other diseases of the circulatory system; R33.9 Retention of urine, unspecified; Z85.3 Personal history of malignant neoplasm of breast
CPT/HCPCS: 36415; 36556; 70450; 71045; 71047; 71275; 74018; 74176; 74177; 76937; 80048; 80053; 81001; 82140; 82150; 82607; 82962; 83605; 83690; 83735; 84100; 84145; 84443; 84478; 85007; 85025; 85027; 85049; 85610; 85651; 87040; 87086; 87493; 88307; 88309; 88313; 88331; 93970; 94640; 94760; 95816; A7015; C1892; J0171; J0610; J0694; J0780; J1100; J1170; J1630; J1644; J1650; J1885; J1940; J2001; J2020; J2060; J2185; J2248; J2250; J2405; J2543; J2704; J2710; J2795; J3010; J3475; J3480; J3490; J7030; J7040; J7050; J7120; J7620; J7626; Q9967; 97110; 97116; 97530; 97535; G0378

== ENCOUNTER 2019-03-03 16:06 | Inpatient (IN) | payer BC ==
[~2019-03-03] VITALS: Ht 160 cm; Wt 52.3 kg
[~2019-03-03 16:06] MED LIST changes: -HYDROmorphone 2 MG/ML VIAL IV PRN; -IV RINGERS,LACTATED 1000ML 1,000 ML IV SCH; -MORPHINE SULFATE 2 MG/ML VIAL. IV PRN; -ONDANSETRON PF 4 MG/2 ML VIAL. IV PRN; -PROCHLORPERAZINE 10 MG/2 ML VIAL. IV PRN; -cefOXitin SODIUM IV Push 2 GM VIAL. IVP PRN; -fentaNYL PF VIAL 100 MCG/2 ML VIAL IV PRN
[2019-03-03] MEDS ORDERED: IV NORMAL SALINE 1000ML BAG 1,000 ML IV SCH (16:22)
[2019-03-03] MEDS ORDERED: fentaNYL PF VIAL 100 MCG/2 ML VIAL IV ONE (16:30)
--- NOTE | 2019-03-03 16:53 | PHYS DOC ---
Past Medical History Past Medical History: Alcoholism, Cancer, Hepatitis, Other Additional Past Medical Histor: back pain,FATTY LIVER, BREAST CX Past Surgical History: Hysterectomy, Other Additional Past Surgical Histo: bilateral mastectomy Alcohol Use: Heavy Drug Use: None Adult General Chief Complaint Chief Complaint: PAIN CONTROL HPI HPI Patient is a 58 year old female patient with history Whipple procedure in January 2019 who presents via EMS with complaining of abdominal pain. Patient had Whipple procedure in January and then discharged to the [facility] and just discharged home yesterday with fentanyl patch but complaining of increasing abdominal pain as a generalized sharp pain without nausea and vomiting and diarrhea and constipation and rated her pain 10 over 10. Patient denies fever and chills, anorexia, pain and shortness of breath. Patient is very anxious at arrival to ER. Review of Systems Review of Systems Constitutional: Denies fever or chills [] Eyes: Denies change in visual acuity, redness, or eye pain [] HENT: Denies nasal congestion or sore throat [] Respiratory: Denies cough or shortness of breath [] Cardiovascular: No additional information not addressed in HPI [] GI: Reports abdominal pain, denies nausea, vomiting, bloody stools or diarrhea [] : Denies dysuria or hematuria [] Musculoskeletal: Denies back pain or joint pain [] Integument: Denies rash or skin lesions [] Neurologic: Denies headache, focal weakness or sensory changes [] Endocrine: Denies polyuria or polydipsia [] All other systems were reviewed and found to be within normal limits, except as documented in this note. Current Medications Current Medications Current Medications Medications (Trade) Dose Ordered Sig/Deandre Start Time Stop Time Status Last Admin Dose Admin Fentanyl Citrate (Fentanyl 2ml Vial) 50 mcg 1X ONCE 03/03/19 16:30 03/03/19 16:31 DC 03/03/19 17:32 50 MCG Sodium Chloride 1,000 ml @ 1,000 mls/hr Q1H 03/03/19 16:22 03/03/19 17:21 DC 03/03/19 17:30 1,000 MLS/HR Allergies Allergies Allergies Coded Allergies Type Severity Reaction Last Updated Verified No Known Drug Allergies 01/27/19 No Physical Exam Physical Exam Constitutional: Moderate distress, non-toxic appearance, anxious and tearful. [] HENT: Normocephalic, atraumatic, moist oral mucosa. Eyes: PERRLA, EOMI, conjunctiva normal, no discharge. [] Neck: Normal range of motion, no tenderness, supple, no stridor. [] Cardiovascular:Heart rate regular rhythm, no murmur [] Lungs & Thorax: Bilateral breath sounds clear to auscultation [] Abdomen: Distended abdomen with fluid and generalized guarding, midline surgical wound, right side stormy with clear liquid in the bag, left abdominal side with dressing in place soaking with bile. Skin: Warm, dry, no erythema, no rash. [] Back: No tenderness, no CVA tenderness. [] Extremities: No tenderness, no cyanosis, no clubbing, ROM intact, no edema. [] Neurologic: Alert and oriented X 3, no focal deficits noted. [] Psychologic: Affect anxious, mood normal. [] EKG EKG [] Radiology/Procedures Radiology/Procedures [] Course & Med Decision Making Course & Med Decision Making Pertinent Labs and Imaging studies are pending. Evaluation of patient in ER showed 58-year-old female patient with history of pancreatic cancer and Whipple procedure and complaining of abdominal pain. Patient treated with IV fentanyl and felt better. Labs and CT of abdomen pending and Dr. Coates was informed about following with the test result. Patient requiring admission for further evaluation and treatment. Discussed with Dr. Amin who is in agreement with admission. Discussed findings and plan with patient and family, who acknowledge understanding and agreement. Dragon Disclaimer Dragon Disclaimer This electronic medical record was generated, in whole or in part, using a voice recognition dictation system. Departure Departure Impression: Primary Impression: Abdominal pain Additional Impressions: History of pancreatic cancer Ascites Disposition: 09 ADMITTED INPATIENT (at 1629) Admitting Physician: JODY (Dr Amin accepted admission at 1627) Condition: IMPROVED Referrals: NO PCP (PCP) Problem Qualifiers Primary Impression: Abdominal pain Abdominal location: generalized Qualified Codes: R10.84 - Generalized abdominal pain Additional Impressions: Ascites Ascites type: other type Qualified Codes: R18.8 - Other ascites JUSTINE IGNACIO MD Mar 03, 2019 16:53
--- NOTE | 2019-03-03 18:09 | PDOC1 ---
History and Physical Date of Admission Date of Admission DATE: 03/03/19 TIME: 18:08 Identification/Chief Complaint Chief Complaint Abdominal pain Source Source: Patient History of Present Illness History of Present Illness Ms Iqbal is a 58yo F w/ PMHx COPD, hepatitis C, hyperlipidemia, cirrhosis of the liver, breast cancer (s/p bilateral mastectomy and adjuvant chemotherapy, partial hysterectomy), alcoholism, GERD, invasive pancreatic adenocarcinoma s/p whipple who presents to [facility] ED today after a very recent discharge from [facility] for intractable abdominal pain and progressive weakness, and inability to care for herself at home. Labs reveal Hb 8.8, MCV 102, INR 1.2, Bili 0.3, Na 129, K 3.5, AST 40, Albumin 1.2. She is unable to stand with me in the ED, writhing in pain. 01/20/[address] scan of the abdomen and pelvis on 01/21/2019 revealed a 2.8 cm mass in the head of the pancreas with no lymphadenopathy. MRCP on 01/21/2019 revealed a 2 cm mass at the head of the pancreas causing obstruction. She underwent an attempted ERCP, but was unable to undergo the procedure as she had taken something by mouth prior to the procedure. She underwent Whipple procedure on 01/27/[address] Levin. She underwent pyloric sparing pancreatic gastrostomy, hepaticojejunostomy, G tube placement and liver biopsy. There is evidence of invasive pancreatic adenocarcinoma, well to moderately differentiated involving the vascular groove soft tissue resection margin. Two out of 17 lymph nodes are positive. Liver biopsy showed Mild to moderately active cirrhosis (grade 2-3, stage 4/4) likely related to chronic hepatitis C per [facility] pathologist. Past Medical History Cardiovascular: Hyperlipidemia Pulmonary: COPD CENTRAL NERVOUS SYSTEM: Periperal neuropathy GI: GERD Heme/Onc: Cancer (Pancreatic cancer) Hepatobiliary: Cirrhosis, Hep A/B/C (C) Psych: Anxiety Musculoskeletal: low back pain Rheumatologic: No pertinent hx Infectious disease: No pertinent hx Renal/: No pertinent hx Endocrine: No pertinent hx Past Surgical History Past Surgical History: Hysterectomy, Other (Whipple 01/2019) Family History Family History: Cancer, Chronic Bronchitis, Coronary Artery Disease, Heart Disease, Hypertension Social History Smoke: Quit ALCOHOL: heavy Drugs: None Current Problem List Problem List Problems Medical Problems: (1) Abdominal pain Status: Acute (2) History of pancreatic cancer Status: Acute Current Medications Current Medications Current Medications Sodium Chloride 1,000 ml @ 1,000 mls/hr Q1H IV Last administered on 03/03/19at 17:30; Start 03/03/19 at 16:22; Stop 03/03/19 at 17:21; Status DC Fentanyl Citrate (Fentanyl 2ml Vial) 50 mcg 1X ONCE IV Last administered on 03/03/19at 17:32; Start 03/03/19 at 16:30; Stop 03/03/19 at 16:31; Status DC Active Scripts Active Lactulose 20 Gm/30 Ml Solution 20 Gm PO PRN TID PRN 30 Days Zofran (Ondansetron Hcl) 4 Mg Tablet 1 Tab PO Q6HRS 30 Days Hydrocodone-Apap 5-325 (Hydrocodone Bit/Acetaminophen) 1 Tab Tablet 1 Tab PO PRN Q6HRS PRN 6 Days Pantoprazole Sodium (Pantoprazole Sodium) 40 Mg Tablet.dr 40 Mg PO DAILYAC 30 Days Lorazepam 1 Mg Tablet 1 Mg PO PRN Q6HRS PRN 6 Days Reported Proair Hfa Inhaler (Albuterol Sulfate) 8.5 Gm Hfa.aer.ad 1 Puff INH PRN Q6HRS PRN Trelegy Ellipta 100-62.5-25 (Fluticasone/Umeclidin/Vilanter) 1 Each Blst.w.dev 1 Puff PO DAILY Allergies Allergies: Coded Allergies: No Known Drug Allergies (Unverified , 01/27/19) ROS General: YES: Fatigue, Malaise, Appetite; No: Chills, Night Sweats, Other PSYCHOLOGICAL ROS: YES: Anxiety, Disorientation; No: Behavioral Disorder, Concentration difficultie, Decreased libido, Depression, Hallucinations, Hostility, Irritablity, Memory difficulties, Mood Swings, Obsessive thoughts, Physical abuse, Sexual abuse, Sleep disturbances, Suicidal ideation, Other Eyes: No Blurry vision, No Decreased vision, No Double vision, No Dry eyes, No Excessive tearing, No Eye Pain, No Itchy Eyes, No Loss of vision, No Photophobia, No Scotomata, No Uses contacts, No Uses glasses, No Other HEENT: No: Heacaches, Visual Changes, Hearing change, Nasal congestion, Nasal discharge, Oral lesions, Sinus pain, Sore Throat, Epistaxis, Sneezing, Snoring, Tinnitus, Vertigo, Vocal changes, Other ALLERGY AND IMMUNOLOGY: No: Hives, Insect Bite Sensitivity, Itchy/Watery Eyes, Nasal Congestion, Post Nasal Drip, Seasonal Allergies, Other Hematological and Lymphatic: No: Bleeding Problems, Blood Clots, Blood Transfusions, Brusing, Night Sweats, Pallor, Swollen Lymph Nodes, Other ENDOCRINE: No: Breast Changes, Galactorrhea, Hair Pattern Changes, Hot Flashes, Malaise/lethargy, Mood Swings, Palpitations, Polydipsia/polyuria, Skin Changes, Temperature Intolerance, Unexpected Weight Changes, Other Breast: No New/Changing Breast Lumps, No Nipple changes, No Nipple discharge, No Other Respiratory: No: Cough, Hemoptysis, Orthopnea, Pleuritic Pain, Shortness of breath, SOB with excertion, Sputum Changes, Stridor, Tachypnea, Wheezing, Other Cardiovascular: No Chest Pain, No Palpitations, No Orthopnea, No Paroxysmal Noc. Dyspnea, No Edema, No Lt Headedness, No Other Gastrointestinal: Yes Nausea, Yes Vomiting, Yes Abdominal Pain; No Diarrhea, No Constipation, No Melena, No Hematochezia, No Other Genitourinary: No Dysuria, No Frequency, No Incontinence, No Hematuria, No Retention, No Discharge, No Urgency, No Pain, No Flank Pain, No Other, No , No , No , No , No , No , No Musculoskeletal: Yes Gait Disturbance; No Joint Pain, No Joint Stiffness, No Joint Swelling, No Muscle Pain, No Muscular Weakness, No Pain In:, No Swelling In:, No Other Neurological: Yes Behavorial Changes, Yes Confusion, Yes Gait Disturbance; No Bowel/Bladder ControlChng, No Dizziness, No Headaches, No Impaired Coord/balance, No Memory Loss, No Numbness/Tingling, No Seizures, No Speech Problems, No Tremors, No Visual Changes, No Weakness, No Other Skin: No Dry Skin, No Eczema, No Hair Changes, No Lumps, No Mole Changes, No Mottling, No Nail Changes, No Pruritus, No Rash, No Skin Lesion Changes, No Other, No Acne Physical Exam General: Alert, Cooperative, moderate distress HEENT: Atraumatic, PERRLA, EOMI, Mucous membr. moist/pink Lungs: Clear to auscultation, Normal air movement Heart: S1S2, RRR, no gallops, no murmurs Abdomen: Normal bowel sounds, Soft, Other (Diffuse pain, mild fluid wave, RLQ drain empty, left g-drain with excoriationon and surrounding skin breakdown) Rectal Exam: not examined Extremities: No clubbing, No cyanosis, No edema, Normal pulses, No tenderness/swelling Neuro: Normal tone, Cranial nerves 3-12 NL, Other (Unable to walk, diffusely weak) Psych/Mental Status: Mental status NL, Mood NL Vitals Vitals Vital Signs Date Time Temp Pulse Resp B/P (MAP) Pulse Ox O2 Delivery O2 Flow Rate FiO2 03/03/19 17:32 16 96 Room Air 03/03/19 16:38 98.8 109 114/72 (86) 98.[address] abdomen/pelvis - 1. Enterocolitis. 2. Large volume of ascites new from the prior study. There has been removal of the drainage catheter since the prior study. 3. Liver cirrhosis and portal hypertension with splenomegaly. 4. Absence of the head of the pancreas either surgical resection or due to necrosis replaced with a 3 cm rim-enhancing fluid collection which could be a pseudocyst, hematoma or abscess. VTE Prophylaxis Ordered VTE Prophylaxis Devices: Yes VTE Pharmacological Prophylaxi: Yes Assessment/Plan Assessment/Plan A/P: Intractable abdominal pain - likely related to her pancreatic cancer. will modify her pain regimen. SBP is a consideration as she has active drain in place. She is not septic at this time. Will d/w GI Confusion - she is intermittently delerious, could be related to hepatic disease, lactulose prn Progressive weakness - unable to ambulate. Was walking at [facility]. PT and OT to see Anemia - likely of chronic disease INVASIVE PANCREATIC DUCTAL ADENOCARCINOMA - s/p whipple 01/27/2019 H/o hep c - Seen by ID previously. GI consulted Hyponatremia - likely related to her cirrhosis, has been stable Alcoholism - remission 2/2 prolonged hospital stay S/P Bilateral Mastectomy - stable Hypokalemia - monitor, replace Hyperlipidemia - on statin COPD - cont nebs Peripheral neuropathy - likely 2/2 ETOH history Cirrhosis with ascites - Cirrhotic morphology of the liver with sequela of portal hypertension including splenomegaly, and intra-abdominal ascites. May benefit from paracentesis. previously was spontaneously draining from her abdominal drain Anxiety - ativan prn FEN - Full liquid diet PPX - lovenox FULL CODE Dispo - inpatient for complicated cirrhosis patient with acute abdominal pain TAMAR CHAMPAGNE MD Mar 03, 2019 18:09
[2019-03-03] MEDS ORDERED: IOHEXOL 300 MG/ML 100ML VIAL. IV ONE ×2 (18:30→19:15)
[2019-03-03] MEDS ORDERED: CONTRAST GIVEN. MC PRN ×2 (18:45→19:15)
[2019-03-03 19:00] LABS: CALCIUM 7.5 mg/dL (8.5-10.1); CREATININE 1.1 mg/dL (0.6-1.0); POTASSIUM 3.5 mmol/L (3.5-5.1)
[2019-03-03 19:01] LABS: BASO % 0 % (0-3); EOS % 1 % (0-3); HEMATOCRIT 26.2 % (36.0-47.0); HEMOGLOBIN 8.8 g/dL (12.0-15.5); LYMPH # 2.1 x10^3/uL (1.0-4.8); LYMPH % 38 % (24-48); MEAN CORPUSCULAR HEMOGLOBIN 34 pg (25-35); MEAN CORPUSCULAR HGB CONC 34 g/dL (31-37); MEAN CORPUSCULAR VOLUME 102 fL (79-100); MONO # 0.6 x10^3/uL (0.0-1.1); MONO % 12 % (0-9); NEUT # 2.7 x10^3/uL (1.8-7.7); NEUT % 49 % (31-73); PLATELET COUNT 189 x10^3/uL (140-400); RED BLOOD COUNT 2.57 x10^6/uL (3.50-5.40); RED CELL DISTRIBUTION WIDTH 17.6 % (11.5-14.5); WHITE BLOOD COUNT 5.4 x10^3/uL (4.0-11.0)
[2019-03-03 19:07] LABS: ALBUMIN 1.2 g/dL (3.4-5.0); ALBUMIN/GLOBULIN RATIO 0.3 (1.0-1.7); TOTAL BILIRUBIN 0.3 mg/dL (0.2-1.0); TOTAL PROTEIN 5.8 g/dL (6.4-8.2)
[2019-03-03 19:11] LABS: PROTHROMBIN TIME PATIENT 15.3 SEC (11.7-14.0)
--- NOTE | 2019-03-03 19:43 | RAD ---
CT abdomen and pelvis with contrast PQRS statement: CT scans at this facility use dose reduction including either automated exposure control, iterative reconstructions, and /or weight based radiation dosing via mA and kV modification when appropriate to reduce radiation dose to as low as reasonably achievable. HISTORY: Abdominal pain. TECHNIQUE: Helical CT imaging abdomen and pelvis with 60 mL Omnipaque 180 300 intravenous contrast. Abdomen findings: Comparison is made to CT abdomen and pelvis February 01, 2019. Small dependent pleural effusions and lower lobe dependent atelectasis. Drainage catheters of the abdomen have been removed since the prior exam. There is a large volume of ascites which has developed. Liver is cirrhotic and is also mildly atrophic. Patent portal vein contrast enhancement. Decreased volume of pneumoperitoneum with minimal residual air at the sandra hepatis versus pneumobilia. Splenomegaly is stable length of 14 cm. Left kidney and adrenal glands unremarkable. 1 cm right renal midpole hypodensity indeterminate. Head of pancreas is absent perhaps due to surgical resection, replaced by a 3 cm rim-enhancing fluid collection which is more prominent relative to the prior exam. There may be surgical change of the duodenum as well. No bowel obstruction. Diffuse colonic wall thickening as well as areas of small bowel wall thickening likely enterocolitis. Aortoiliac artery calcified plaque. Flank edema. There is a drainage bag at the right abdominal wall at site of one of the removed drainage catheters. Pelvis findings: Large volume pelvic ascites. Rectosigmoid wall thickening. Bladder compressed by the ascites. Hysterectomy. Ovaries atrophic. Bones unremarkable. IMPRESSION: 1. Enterocolitis. 2. Large volume of ascites new from the prior study. There has been removal of the drainage catheter since the prior study. 3. Liver cirrhosis and portal hypertension with splenomegaly. 4. Absence of the head of the pancreas either surgical resection or due to necrosis replaced with a 3 cm rim-enhancing fluid collection which could be a pseudocyst, hematoma or abscess. Electronically signed by: Jovan Calderon MD (03/03/2019 7:40 PM) [id number]
[2019-03-03 20:00] VITALS: BP 92/61
[2019-03-03] MEDS ORDERED: HYDROcodone/APAP 5/325MG 1 TAB TABLET PO PRN (20:45)
[2019-03-03] MEDS ORDERED: ONDANSETRON PF 4 MG/2 ML VIAL. IVP PRN (20:45)
[2019-03-03] MEDS ORDERED: LACTULOSE 20 GM/30 ML SOLUTION. PO PRN (20:45)
[2019-03-03] MEDS ORDERED: ALBUTEROL SULFATE 2.5 MG/3 ML NEBU. INH PRN (20:45)
[2019-03-03] MEDS: HYDROmorphone 2 MG/ML VIAL IVP PRN (20:55)
[2019-03-03] MEDS ORDERED: ENOXAPARIN 30 MG/0.3 ML SYRINGE. SQ SCH (21:00)
[2019-03-03] MEDS ORDERED: BUDESONIDE 0.5 MG/2 ML NEBU. NEB SCH (21:00)
[2019-03-03] MEDS ORDERED: fentaNYL 25MCG/HR PATCH 1 PATCH PATCH.TD72 TD SCH (21:00)
[2019-03-03] MEDS ORDERED: ONDANSETRON ODT 4 MG TAB.RAPDIS. PO PRN (21:00)
[2019-03-03 23:15] VITALS: BP 91/60
[2019-03-03] MEDS: LORazepam 1 MG TABLET PO PRN (23:48)
[2019-03-04 03:25] VITALS: BP 95/57
--- NOTE | 2019-03-04 06:31 | NUR ---
pt admitted 03/03/19 at 2004 , POC and pain mgt discussed with pt, verbalized understanding.
[2019-03-04 07:00] VITALS: BP 108/53
[2019-03-04] MEDS: HYDROmorphone 2 MG/ML VIAL IVP PRN (07:26)
[2019-03-04] MEDS ORDERED: PANTOPRAZOLE 40 MG TABLET.DR. PO SCH (07:30)
[2019-03-04] MEDS: IPRATRPIUM/ALBUTEROL 0.5/2.5MG 3 ML NEBU. NEB SCH ×3 (08:00→15:22)
--- NOTE | 2019-03-04 08:39 | PDOC ---
PROGRESS NOTES Chief Complaint Chief Complaint A/P: Intractable abdominal pain - likely related to her pancreatic cancer. will modify her pain regimen. SBP is a consideration as she has active drain in place. She is not septic at this time. Will d/w GI Confusion - she is intermittently delerious, could be related to hepatic disease, lactulose prn Progressive weakness - unable to ambulate. Was walking at [facility]. PT and OT to see Anemia - likely of chronic disease INVASIVE PANCREATIC DUCTAL ADENOCARCINOMA - s/p whipple 01/27/2019 H/o hep c - Seen by ID previously. GI consulted Hyponatremia - likely related to her cirrhosis, has been stable Alcoholism - remission 2/2 prolonged hospital stay S/P Bilateral Mastectomy - stable Hypokalemia - monitor, replace Hyperlipidemia - on statin COPD - cont nebs Peripheral neuropathy - likely 2/2 ETOH history Cirrhosis with ascites - Cirrhotic morphology of the liver with sequela of portal hypertension including splenomegaly, and intra-abdominal ascites. May benefit from paracentesis. previously was spontaneously draining from her abdominal drain Anxiety - ativan prn FEN - Full liquid diet PPX - lovenox FULL CODE Dispo - inpatient for complicated cirrhosis patient with acute abdominal pain History of Present Illness History of Present Illness Ms Iqbal is a 58yo F w/ PMHx COPD, hepatitis C, hyperlipidemia, cirrhosis of the liver, breast cancer (s/p bilateral mastectomy and adjuvant chemotherapy, partial hysterectomy), alcoholism, GERD, invasive pancreatic adenocarcinoma s/p whipple who presents to [facility] ED today after a very recent discharge from [facility] for intractable abdominal pain and progressive weakness, and inability to care for herself at home. Labs reveal Hb 8.8, MCV 102, INR 1.2, Bili 0.3, Na 129, K 3.5, AST 40, Albumin 1.2. She was unable to stand with me in the ED, writhing in pain. 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 She is feeling somewhat better today, asking to leave. I have d/w GI and surgery to have paracentesis to r/o SBP. Tolerating diet and having normal stools currently. No CP or SOB. 01/20/[address] scan of the abdomen and pelvis on 01/21/2019 revealed a 2.8 cm mass in the head of the pancreas with no lymphadenopathy. MRCP on 01/21/2019 revealed a 2 cm mass at the head of the pancreas causing obstruction. She underwent an attempted ERCP, but was unable to undergo the procedure as she had taken something by mouth prior to the procedure. She underwent Whipple procedure on 01/27/[address] Levin. She underwent pyloric sparing pancreatic gastrostomy, hepaticojejunostomy, G tube placement and liver biopsy. There is evidence of invasive pancreatic adenocarcinoma, well to moderately differentiated involving the vascular groove soft tissue resection margin. Two out of 17 lymph nodes are positive. Liver biopsy showed Mild to moderately active cirrhosis (grade 2-3, stage 4/4) likely related to chronic hepatitis C per [facility] pathologist. Vitals Vitals Vital Signs Date Time Temp Pulse Resp B/P (MAP) Pulse Ox O2 Delivery O2 Flow Rate FiO2 03/04/19 07:26 20 97 Room Air 03/04/19 07:00 98.6 114 108/53 (71) 98.6 Physical Exam General: Alert, Cooperative, moderate distress Lungs: Clear Abdomen: Normal bowel sounds, Soft, Other (Diffuse pain, mild fluid wave, RLQ drain empty, left g-drain with excoriationon and surrounding skin breakdown) Extremities: No clubbing, No cyanosis, No edema, Normal pulses, No tenderness/swelling Labs LABS Laboratory Tests Test 03/03/19 17:55 White Blood Count 5.4 x10^3/uL (4.0-11.0) Red Blood Count 2.57 x10^6/uL (3.50-5.40) Hemoglobin 8.8 g/dL (12.0-15.5) Hematocrit 26.2 % (36.0-47.0) Mean Corpuscular Volume 102 fL (79-100) Mean Corpuscular Hemoglobin 34 pg (25-35) Mean Corpuscular Hemoglobin Concent 34 g/dL (31-37) Red Cell Distribution Width 17.6 % (11.5-14.5) Platelet Count 189 x10^3/uL (140-400) Neutrophils (%) (Auto) 49 % (31-73) Lymphocytes (%) (Auto) 38 % (24-48) Monocytes (%) (Auto) 12 % (0-9) Eosinophils (%) (Auto) 1 % (0-3) Basophils (%) (Auto) 0 % (0-3) Neutrophils # (Auto) 2.7 x10^3/uL (1.8-7.7) Lymphocytes # (Auto) 2.1 x10^3/uL (1.0-4.8) Monocytes # (Auto) 0.6 x10^3/uL (0.0-1.1) Eosinophils # (Auto) 0.0 x10^3/uL (0.0-0.7) Basophils # (Auto) 0.0 x10^3/uL (0.0-0.2) Prothrombin Time 15.3 SEC (11.7-14.0) Prothromb Time International Ratio 1.2 (0.8-1.1) Activated Partial Thromboplast Time 32 SEC (24-38) Sodium Level 129 mmol/L (136-145) Potassium Level 3.5 mmol/L (3.5-5.1) Chloride Level 100 mmol/L (98-107) Carbon Dioxide Level 23 mmol/L (21-32) Anion Gap 6 (6-14) Blood Urea Nitrogen 27 mg/dL (7-20) Creatinine 1.1 mg/dL (0.6-1.0) Estimated GFR (Cockcroft-Gault) 51.0 BUN/Creatinine Ratio 25 (6-20) Glucose Level 111 mg/dL (70-99) Lactic Acid Level 1.9 mmol/L (0.4-2.0) Calcium Level 7.5 mg/dL (8.5-10.1) Total Bilirubin 0.3 mg/dL (0.2-1.0) Aspartate Amino Transf (AST/SGOT) 40 U/L (15-37) Alanine Aminotransferase (ALT/SGPT) 21 U/L (14-59) Alkaline Phosphatase 171 U/L (46-116) Creatine Kinase 32 U/L (26-192) Total Protein 5.8 g/dL (6.4-8.2) Albumin 1.2 g/dL (3.4-5.0) Albumin/Globulin Ratio 0.3 (1.0-1.7) Lipase 64 U/L (73-393) Assessment and Plan Assessmemt and Plan Problems Medical Problems: (1) Abdominal pain Status: Acute (2) Ascites Status: Acute (3) History of pancreatic cancer Status: Acute Comment Review of Relevant I have reviewed the following items dante (where applicable) has been applied. Labs Laboratory Tests Test 03/03/19 17:55 White Blood Count 5.4 x10^3/uL (4.0-11.0) Red Blood Count 2.57 x10^6/uL (3.50-5.40) Hemoglobin 8.8 g/dL (12.0-15.5) Hematocrit 26.2 % (36.0-47.0) Mean Corpuscular Volume 102 fL (79-100) Mean Corpuscular Hemoglobin 34 pg (25-35) Mean Corpuscular Hemoglobin Concent 34 g/dL (31-37) Red Cell Distribution Width 17.6 % (11.5-14.5) Platelet Count 189 x10^3/uL (140-400) Neutrophils (%) (Auto) 49 % (31-73) Lymphocytes (%) (Auto) 38 % (24-48) Monocytes (%) (Auto) 12 % (0-9) Eosinophils (%) (Auto) 1 % (0-3) Basophils (%) (Auto) 0 % (0-3) Neutrophils # (Auto) 2.7 x10^3/uL (1.8-7.7) Lymphocytes # (Auto) 2.1 x10^3/uL (1.0-4.8) Monocytes # (Auto) 0.6 x10^3/uL (0.0-1.1) Eosinophils # (Auto) 0.0 x10^3/uL (0.0-0.7) Basophils # (Auto) 0.0 x10^3/uL (0.0-0.2) Prothrombin Time 15.3 SEC (11.7-14.0) Prothromb Time International Ratio 1.2 (0.8-1.1) Activated Partial Thromboplast Time 32 SEC (24-38) Sodium Level 129 mmol/L (136-145) Potassium Level 3.5 mmol/L (3.5-5.1) Chloride Level 100 mmol/L (98-107) Carbon Dioxide Level 23 mmol/L (21-32) Anion Gap 6 (6-14) Blood Urea Nitrogen 27 mg/dL (7-20) Creatinine 1.1 mg/dL (0.6-1.0) Estimated GFR (Cockcroft-Gault) 51.0 BUN/Creatinine Ratio 25 (6-20) Glucose Level 111 mg/dL (70-99) Lactic Acid Level 1.9 mmol/L (0.4-2.0) Calcium Level 7.5 mg/dL (8.5-10.1) Total Bilirubin 0.3 mg/dL (0.2-1.0) Aspartate Amino Transf (AST/SGOT) 40 U/L (15-37) Alanine Aminotransferase (ALT/SGPT) 21 U/L (14-59) Alkaline Phosphatase 171 U/L (46-116) Creatine Kinase 32 U/L (26-192) Total Protein 5.8 g/dL (6.4-8.2) Albumin 1.2 g/dL (3.4-5.0) Albumin/Globulin Ratio 0.3 (1.0-1.7) Lipase 64 U/L (73-393) Laboratory Tests Test 03/03/19 17:55 White Blood Count 5.4 x10^3/uL (4.0-11.0) Red Blood Count 2.57 x10^6/uL (3.50-5.40) Hemoglobin 8.8 g/dL (12.0-15.5) Hematocrit 26.2 % (36.0-47.0) Mean Corpuscular Volume 102 fL (79-100) Mean Corpuscular Hemoglobin 34 pg (25-35) Mean Corpuscular Hemoglobin Concent 34 g/dL (31-37) Red Cell Distribution Width 17.6 % (11.5-14.5) Platelet Count 189 x10^3/uL (140-400) Neutrophils (%) (Auto) 49 % (31-73) Lymphocytes (%) (Auto) 38 % (24-48) Monocytes (%) (Auto) 12 % (0-9) Eosinophils (%) (Auto) 1 % (0-3) Basophils (%) (Auto) 0 % (0-3) Neutrophils # (Auto) 2.7 x10^3/uL (1.8-7.7) Lymphocytes # (Auto) 2.1 x10^3/uL (1.0-4.8) Monocytes # (Auto) 0.6 x10^3/uL (0.0-1.1) Eosinophils # (Auto) 0.0 x10^3/uL (0.0-0.7) Basophils # (Auto) 0.0 x10^3/uL (0.0-0.2) Prothrombin Time 15.3 SEC (11.7-14.0) Prothromb Time International Ratio 1.2 (0.8-1.1) Activated Partial Thromboplast Time 32 SEC (24-38) Sodium Level 129 mmol/L (136-145) Potassium Level 3.5 mmol/L (3.5-5.1) Chloride Level 100 mmol/L (98-107) Carbon Dioxide Level 23 mmol/L (21-32) Anion Gap 6 (6-14) Blood Urea Nitrogen 27 mg/dL (7-20) Creatinine 1.1 mg/dL (0.6-1.0) Estimated GFR (Cockcroft-Gault) 51.0 BUN/Creatinine Ratio 25 (6-20) Glucose Level 111 mg/dL (70-99) Lactic Acid Level 1.9 mmol/L (0.4-2.0) Calcium Level 7.5 mg/dL (8.5-10.1) Total Bilirubin 0.3 mg/dL (0.2-1.0) Aspartate Amino Transf (AST/SGOT) 40 U/L (15-37) Alanine Aminotransferase (ALT/SGPT) 21 U/L (14-59) Alkaline Phosphatase 171 U/L (46-116) Creatine Kinase 32 U/L (26-192) Total Protein 5.8 g/dL (6.4-8.2) Albumin 1.2 g/dL (3.4-5.0) Albumin/Globulin Ratio 0.3 (1.0-1.7) Lipase 64 U/L (73-393) Medications Current Medications Sodium Chloride 1,000 ml @ 1,000 mls/hr Q1H IV Last administered on 03/03/19at 17:30; Start 03/03/19 at 16:22; Stop 03/03/19 at 17:21; Status DC Fentanyl Citrate (Fentanyl 2ml Vial) 50 mcg 1X ONCE IV Last administered on 03/03/19at 17:32; Start 03/03/19 at 16:30; Stop 03/03/19 at 16:31; Status DC Iohexol (Omnipaque 300 Mg/ml) 100 ml 1X ONCE IV ; Start 03/03/19 at 18:30; Stop 03/03/19 at 18:31; Status DC Info (CONTRAST GIVEN -- Rx MONITORING) 1 each PRN DAILY PRN MC SEE COMMENTS; Start 03/03/19 at 18:45; Stop 03/05/19 at 18:44 Iohexol (Omnipaque 300 Mg/ml) 60 ml 1X ONCE IV Last administered on 03/03/19at 19:44; Start 03/03/19 at 19:15; Stop 03/03/19 at 19:16; Status DC Info (CONTRAST GIVEN -- Rx MONITORING) 1 each PRN DAILY PRN MC SEE COMMENTS; Start 03/03/19 at 19:15; Stop 03/05/19 at 19:14 Albuterol Sulfate (Ventolin Neb Soln) 2.5 mg PRN Q6HRS PRN INH SHORTNESS OF BREATH; Start 03/03/19 at 20:45 Acetaminophen/ Hydrocodone Bitart (Lortab 5/325) 1 tab PRN Q6HRS PRN PO MODERATE PAIN 4-6; Start 03/03/19 at 20:45 Lactulose (Lactulose) 20 gm PRN TID PRN PO CONSTIPATION 1ST CHOICE; Start 03/03/19 at 20:45 Lorazepam (Ativan) 1 mg PRN Q6HRS PRN PO ANXIETY / AGITATION Last administered on 03/03/19at 23:48; Start 03/03/19 at 20:45 Pantoprazole Sodium (Protonix) 40 mg DAILYAC PO ; Start 03/04/19 at 07:30 Budesonide (Pulmicort) 0.5 mg RTBID NEB ; Start 03/03/19 at 21:00 Ondansetron HCl (Zofran Odt) 4 mg PRN Q6HRS PRN PO NAUSEA/VOMITING 1ST CHOICE Last administered on 03/03/19at 20:55; Start 03/03/19 at 21:00 Fentanyl (Duragesic 25mcg/ Hr Patch) 1 patch Q3DAYS TD Last administered on 03/03/19at 23:50; Start 03/03/19 at 21:00 Ondansetron HCl (Zofran) 4 mg PRN Q6HRS PRN IVP NAUSEA/VOMITING 1ST CHOICE; Start 03/03/19 at 20:45 Hydromorphone HCl (Dilaudid) 0.4 mg PRN Q4HRS PRN IVP SEVERE PAIN 7-10 Last administered on 03/04/19at 07:26; Start 03/03/19 at 20:45 Enoxaparin Sodium (Lovenox 30mg Syringe) 30 mg Q24H SQ Last administered on 03/03/19at 23:30; Start 03/03/19 at 21:00 Albuterol/ Ipratropium (Duoneb) 3 ml RTQID NEB ; Start 03/04/19 at 08:00 Active Scripts Active Lactulose 20 Gm/30 Ml Solution 20 Gm PO PRN TID PRN 30 Days Zofran (Ondansetron Hcl) 4 Mg Tablet 1 Tab PO Q6HRS 30 Days Hydrocodone-Apap 5-325 (Hydrocodone Bit/Acetaminophen) 1 Tab Tablet 1 Tab PO PRN Q6HRS PRN 6 Days Pantoprazole Sodium (Pantoprazole Sodium) 40 Mg Tablet.dr 40 Mg PO DAILYAC 30 Days Lorazepam 1 Mg Tablet 1 Mg PO PRN Q6HRS PRN 6 Days Reported Proair Hfa Inhaler (Albuterol Sulfate) 8.5 Gm Hfa.aer.ad 1 Puff INH PRN Q6HRS PRN Trelegy Ellipta 100-62.5-25 (Fluticasone/Umeclidin/Vilanter) 1 Each Blst.w.dev 1 Puff PO DAILY Vitals/I & O Vital Sign - Last 24 Hours 03/03/19 03/03/19 03/03/19 03/03/19 16:38 17:30 17:32 18:30 Temp 98.8 98.8 Pulse 109 106 106 Resp 16 19 16 18 B/P (MAP) 114/72 (86) Pulse Ox 97 97 96 96 O2 Delivery Room Air Room Air 03/03/19 03/03/19 03/03/19 03/03/19 19:30 20:00 20:55 21:00 Temp 98.7 98.7 Pulse 110 108 Resp 21 18 20 B/P (MAP) 92/61 (71) Pulse Ox 100 92 100 O2 Delivery Room Air Room Air Room Air 03/03/19 03/03/19 03/03/19 03/04/19 21:25 23:15 23:50 03:25 Temp 98.4 98.1 98.4 98.1 Pulse 114 109 Resp 20 20 18 B/P (MAP) 91/60 (70) 95/57 (70) Pulse Ox 92 100 97 O2 Delivery Room Air Room Air Room Air 03/04/19 03/04/19 03/04/19 03:50 07:00 07:26 Temp 98.6 98.6 Pulse 114 Resp 20 20 B/P (MAP) 108/53 (71) Pulse Ox 97 95 97 O2 Delivery Room Air Room Air Room Air Intake and Output 03/03/19 03/03/19 03/04/19 15:00 23:00 07:00 Intake Total 240 ml 120 ml Balance 240 ml 120 ml TAMAR CHAMPAGNE MD Mar 04, 2019 08:38
--- NOTE | 2019-03-04 09:34 | PDOC2 ---
GI CONSULT Reason For Consult: cirrhosis, pancreatic cancer HPI: HPI: 58 y/o female, upset in her room this morning. H/o pancreatic adenocarcinoma s/p Whipple w/ Dr. Levin last month. Tells me she came to the hospital because G tube site is leaking about she wants to know what to do about it. Tearful - wants to go home, tired of being in the hospital (and recently at [facility]). Pain is mostly around G tube, skin is irritated and yu. Denies n/v but appetite is poor - has to eat a few bites at a time, early satiety - some left-sided pain around G tube after eating sometimes. No issues w/ stooling, no bleeding. Has ascites w/ minimal leakage from previous drain site on right. Occasional GERD - past use of Tums and PPI, then PPI restarted after Whipple but apparently not taking after discharge from [facility]. No previous EGD or colonoscopy. H/o Hep C/alcohol use and cirrhosis. PMH: PMH: COPD, peripheral neuropathy, HLD, anxiety, breast cancer, pancreatic cancer, GERD, Hep C, cirrhosis bilateral mastectomy and chemo, partial hysterectomy, Whipple (pyloric sparing, pancreaticogastrostomy, hepaticojejunostomy, G-tube placement), liver biopsy (01/2019 - mild to moderately active cirrhosis (grade 2-3, stage 4/4) FH: Family History: No pertinent hx Social History: Smoke: Quit ALCOHOL: other (heavy in the past) Drugs: None ROS: GEN: Denies fevers, chills, sweats HEENT: Denies blurred vision, sore throat CV: Denies chest pain RESP: Denies shortness of air, cough GI: Per HPI : Denies hematuria, dysuria ENDO: +weight loss NEURO: Denies confusion, dizziness MSK: +weakness SKIN: Denies jaundice, pruritus Vitals: Vitals: Vital Signs Date Time Temp Pulse Resp B/P (MAP) Pulse Ox O2 Delivery O2 Flow Rate FiO2 03/04/19 09:03 16 Room Air 03/04/19 07:26 97 03/04/19 07:00 98.6 114 108/53 (71) 98.6 Labs: Labs: Laboratory Tests Test 03/03/19 17:55 White Blood Count 5.4 x10^3/uL (4.0-11.0) Red Blood Count 2.57 x10^6/uL (3.50-5.40) Hemoglobin 8.8 g/dL (12.0-15.5) Hematocrit 26.2 % (36.0-47.0) Mean Corpuscular Volume 102 fL (79-100) Mean Corpuscular Hemoglobin 34 pg (25-35) Mean Corpuscular Hemoglobin Concent 34 g/dL (31-37) Red Cell Distribution Width 17.6 % (11.5-14.5) Platelet Count 189 x10^3/uL (140-400) Neutrophils (%) (Auto) 49 % (31-73) Lymphocytes (%) (Auto) 38 % (24-48) Monocytes (%) (Auto) 12 % (0-9) Eosinophils (%) (Auto) 1 % (0-3) Basophils (%) (Auto) 0 % (0-3) Neutrophils # (Auto) 2.7 x10^3/uL (1.8-7.7) Lymphocytes # (Auto) 2.1 x10^3/uL (1.0-4.8) Monocytes # (Auto) 0.6 x10^3/uL (0.0-1.1) Eosinophils # (Auto) 0.0 x10^3/uL (0.0-0.7) Basophils # (Auto) 0.0 x10^3/uL (0.0-0.2) Prothrombin Time 15.3 SEC (11.7-14.0) Prothromb Time International Ratio 1.2 (0.8-1.1) Activated Partial Thromboplast Time 32 SEC (24-38) Sodium Level 129 mmol/L (136-145) Potassium Level 3.5 mmol/L (3.5-5.1) Chloride Level 100 mmol/L (98-107) Carbon Dioxide Level 23 mmol/L (21-32) Anion Gap 6 (6-14) Blood Urea Nitrogen 27 mg/dL (7-20) Creatinine 1.1 mg/dL (0.6-1.0) Estimated GFR (Cockcroft-Gault) 51.0 BUN/Creatinine Ratio 25 (6-20) Glucose Level 111 mg/dL (70-99) Lactic Acid Level 1.9 mmol/L (0.4-2.0) Calcium Level 7.5 mg/dL (8.5-10.1) Total Bilirubin 0.3 mg/dL (0.2-1.0) Aspartate Amino Transf (AST/SGOT) 40 U/L (15-37) Alanine Aminotransferase (ALT/SGPT) 21 U/L (14-59) Alkaline Phosphatase 171 U/L (46-116) Creatine Kinase 32 U/L (26-192) Total Protein 5.8 g/dL (6.4-8.2) Albumin 1.2 g/dL (3.4-5.0) Albumin/Globulin Ratio 0.3 (1.0-1.7) Lipase 64 U/L (73-393) Allergies: Coded Allergies: No Known Drug Allergies (Unverified , 01/27/19) Medications: Current Medications Medications (Trade) Dose Ordered Sig/Deandre Route PRN Reason Start Time Stop Time Status Last Admin Dose Admin Sodium Chloride 1,000 ml @ 1,000 mls/hr Q1H IV 03/03/19 16:22 03/03/19 17:21 DC 03/03/19 17:30 Fentanyl Citrate (Fentanyl 2ml Vial) 50 mcg 1X ONCE IV 03/03/19 16:30 03/03/19 16:31 DC 03/03/19 17:32 Iohexol (Omnipaque 300 Mg/ml) 60 ml 1X ONCE IV 03/03/19 19:15 03/03/19 19:16 DC 03/03/19 19:44 Lorazepam (Ativan) 1 mg PRN Q6HRS PRN PO ANXIETY / AGITATION 03/03/19 20:45 03/03/19 23:48 Ondansetron HCl (Zofran Odt) 4 mg PRN Q6HRS PRN PO NAUSEA/VOMITING 1ST CHOICE 03/03/19 21:00 03/03/19 20:55 Fentanyl (Duragesic 25mcg/ Hr Patch) 1 patch Q3DAYS TD 03/03/19 21:00 03/03/19 23:50 Hydromorphone HCl (Dilaudid) 0.4 mg PRN Q4HRS PRN IVP SEVERE PAIN 7-10 03/03/19 20:45 03/04/19 07:26 Enoxaparin Sodium (Lovenox 30mg Syringe) 30 mg Q24H SQ 03/03/19 21:00 03/03/19 23:30 Imaging: Imaging: CT A/P Small dependent pleural effusions and lower lobe dependent atelectasis. Drainage catheters of the abdomen have been removed since the prior exam. There is a large volume of ascites which has developed. Liver is cirrhotic and is also mildly atrophic. Patent portal vein contrast enhancement. Decreased volume of pneumoperitoneum with minimal residual air at the sandra hepatis versus pneumobilia. Splenomegaly is stable length of 14 cm. Left kidney and adrenal glands unremarkable. 1 cm right renal midpole hypodensity indeterminate. Head of pancreas is absent perhaps due to surgical resection, replaced by a 3 cm rim-enhancing fluid collection which is more prominent relative to the prior exam. There may be surgical change of the duodenum as well. No bowel obstruction. Diffuse colonic wall thickening as well as areas of small bowel wall thickening likely enterocolitis. Aortoiliac artery calcified plaque. Flank edema. There is a drainage bag at the right abdominal wall at site of one of the removed drainage catheters. Pelvis findings: Large volume pelvic ascites. Rectosigmoid wall thickening. Bladder compressed by the ascites. Hysterectomy. Ovaries atrophic. Bones unremarkable. IMPRESSION: 1. Enterocolitis. 2. Large volume of ascites new from the prior study. There has been removal of the drainage catheter since the prior study. 3. Liver cirrhosis and portal hypertension with splenomegaly. 4. Absence of the head of the pancreas either surgical resection or due to necrosis replaced with a 3 cm rim-enhancing fluid collection which could be a pseudocyst, hematoma or abscess. PE: GEN: NAD HEENT: Atraumatic, PERRL LUNGS: CTAB HEART: tachycardic ABD: some distention, bag covering drain site in right abdomen - minimal clear fluid, bilious fluid in bag covering G tube site, additional previous drain site left abdomen closed EXTREMITY: No edema SKIN: No rashes, no jaundice NEURO/PSYCH: A & O 3, tearful A/P: A/P: Pancreatic cancer s/p Whipple Leakage (bilious) from G tube site w/ skin irritation Ascites, h/o cirrhosis (Hep C, alcohol) Anorexia, early satiety, abd pain GERD - on PPI -- Check ascites to r/o SBP. G tube site leakage per surgery. Continue PPI. "Enterocolitis" finding on CT also present in the past - no c/o diarrhea or bleeding. CARLOS LONDONO Mar 04, 2019 09:34
--- NOTE | 2019-03-04 10:10 | NUR ---
wound care patient seen per wound care consult for a left abdomen-fistula. see wound assessment. patient currently has an ostomy bag on the left abdomen that is currently clean dry and intact, patients skin around the bag is red and peeling. left bag on at this time as no leaks noted. patient also has a bag on the right abdomen that is clean dry and intact the tap on the edges are peeling slightly, Tegaderm tape applied around edges, patient stated the bag was placed on Saturday, wound care will continue to f/u. notified YAMILETH Campbell about the POC.
[2019-03-04] MEDS ORDERED: HYDR-2761 PO (10:53)
[2019-03-04] MEDS ORDERED: FENT1PAT15 TD (10:53)
[2019-03-04 11:00] VITALS: BP 108/53
[2019-03-04] MEDS: LORazepam 1 MG TABLET PO PRN (11:19)
--- NOTE | 2019-03-04 12:29 | NUR ---
SS following for discharge planning. SS reviewed pt chart. Pt is from home and is currently on room air. Pt was recently at [facility] and was discharged on 02/26/2019. [facility] reported that pt wanted to leave AMA but was talked into home healthcare and was discharge to home with [facility]. SS will continue to follow for discharge planning.
--- NOTE | 2019-03-04 13:09 | PDOC2 ---
CONSULT Date of Consult Date of Consult DATE: 03/04/19 TIME: 12:57 Reason for Consult Reason for Consult: abd pain Referring Physician Referring Physician: Dr. Amin Identification/Chief Complaint Chief Complaint abd pain Source Source: Chart review, Patient History of Present Illness Reason for Visit: 58 yo F s/p whipple for pancreatic cancer. Pt has been recovering at [facility] and recently discharged. Patient has persistently had ascites draining from previous drainage site. Recently removed Gastrostomy tube and now with persistent gastrocutaneous fistula. Pt reports tolerating diet and having normal stools. Past Medical History Cardiovascular: Hyperlipidemia Pulmonary: COPD CENTRAL NERVOUS SYSTEM: Periperal neuropathy GI: GERD Heme/Onc: Cancer (Pancreatic cancer) Hepatobiliary: Cirrhosis, Hep A/B/C (C) Psych: Anxiety Musculoskeletal: low back pain Rheumatologic: No pertinent hx Infectious disease: No pertinent hx Renal/: No pertinent hx Endocrine: No pertinent hx Past Surgical History Past Surgical History: Hysterectomy, Other (Whipple 01/2019) Family History Family History: Cancer, Chronic Bronchitis, Coronary Artery Disease, Heart Disease, Hypertension Social History Quit ALCOHOL: other (heavy in the past) Drugs: None Current Problem List Problem List Problems Medical Problems: (1) Abdominal pain Status: Acute (2) Ascites Status: Acute (3) History of pancreatic cancer Status: Acute Current Medications Current Medications Current Medications Sodium Chloride 1,000 ml @ 1,000 mls/hr Q1H IV Last administered on 03/03/19at 17:30; Start 03/03/19 at 16:22; Stop 03/03/19 at 17:21; Status DC Fentanyl Citrate (Fentanyl 2ml Vial) 50 mcg 1X ONCE IV Last administered on 03/03/19at 17:32; Start 03/03/19 at 16:30; Stop 03/03/19 at 16:31; Status DC Iohexol (Omnipaque 300 Mg/ml) 100 ml 1X ONCE IV ; Start 03/03/19 at 18:30; Stop 03/03/19 at 18:31; Status DC Info (CONTRAST GIVEN -- Rx MONITORING) 1 each PRN DAILY PRN MC SEE COMMENTS; Start 03/03/19 at 18:45; Stop 03/05/19 at 18:44 Iohexol (Omnipaque 300 Mg/ml) 60 ml 1X ONCE IV Last administered on 03/03/19at 19:44; Start 03/03/19 at 19:15; Stop 03/03/19 at 19:16; Status DC Info (CONTRAST GIVEN -- Rx MONITORING) 1 each PRN DAILY PRN MC SEE COMMENTS; Start 03/03/19 at 19:15; Stop 03/05/19 at 19:14 Albuterol Sulfate (Ventolin Neb Soln) 2.5 mg PRN Q6HRS PRN INH SHORTNESS OF BREATH; Start 03/03/19 at 20:45 Acetaminophen/ Hydrocodone Bitart (Lortab 5/325) 1 tab PRN Q6HRS PRN PO MODERATE PAIN 4-6 Last administered on 03/04/19at 11:20; Start 03/03/19 at 20:45 Lactulose (Lactulose) 20 gm PRN TID PRN PO CONSTIPATION 1ST CHOICE; Start 03/03/19 at 20:45 Lorazepam (Ativan) 1 mg PRN Q6HRS PRN PO ANXIETY / AGITATION Last administered on 03/04/19at 11:19; Start 03/03/19 at 20:45 Pantoprazole Sodium (Protonix) 40 mg DAILYAC PO ; Start 03/04/19 at 07:30 Budesonide (Pulmicort) 0.5 mg RTBID NEB ; Start 03/03/19 at 21:00 Ondansetron HCl (Zofran Odt) 4 mg PRN Q6HRS PRN PO NAUSEA/VOMITING 1ST CHOICE Last administered on 03/03/19at 20:55; Start 03/03/19 at 21:00 Fentanyl (Duragesic 25mcg/ Hr Patch) 1 patch Q3DAYS TD Last administered on 03/03/19at 23:50; Start 03/03/19 at 21:00 Ondansetron HCl (Zofran) 4 mg PRN Q6HRS PRN IVP NAUSEA/VOMITING 1ST CHOICE; Start 03/03/19 at 20:45 Hydromorphone HCl (Dilaudid) 0.4 mg PRN Q4HRS PRN IVP SEVERE PAIN 7-10 Last administered on 03/04/19at 07:26; Start 03/03/19 at 20:45 Enoxaparin Sodium (Lovenox 30mg Syringe) 30 mg Q24H SQ Last administered on 03/03/19at 23:30; Start 03/03/19 at 21:00 Albuterol/ Ipratropium (Duoneb) 3 ml RTQID NEB Last administered on 03/04/19at 11:44; Start 03/04/19 at 08:00 Active Scripts Active FENTANYL 25mcg/hr (Fentanyl) 1 Each Patch.td72 1 Patch TD Q3DAYS 30 Days Hydrocodone-Apap 5-325 (Hydrocodone Bit/Acetaminophen) 1 Tab Tablet 1 Tab PO PRN Q6HRS PRN 30 Days Lactulose 20 Gm/30 Ml Solution 20 Gm PO PRN TID PRN 30 Days Zofran (Ondansetron Hcl) 4 Mg Tablet 1 Tab PO Q6HRS 30 Days Pantoprazole Sodium (Pantoprazole Sodium) 40 Mg Tablet.dr 40 Mg PO DAILYAC 30 Days Lorazepam 1 Mg Tablet 1 Mg PO PRN Q6HRS PRN 6 Days Reported Proair Hfa Inhaler (Albuterol Sulfate) 8.5 Gm Hfa.aer.ad 1 Puff INH PRN Q6HRS PRN Trelegy Ellipta 100-62.5-25 (Fluticasone/Umeclidin/Vilanter) 1 Each Blst.w.dev 1 Puff PO DAILY Allergies Allergies: Coded Allergies: No Known Drug Allergies (Unverified , 01/27/19) ROS Gastrointestinal: Yes Abdominal Pain Physical Exam General: Alert, Oriented X3, Cooperative, mild distress, Other (pt is more clear then when seen previously) HEENT: Atraumatic, EOMI Abdomen: Soft, No tenderness, Other (well healed incision, decreasing ascites from RLQ site. Bilious drainage from gastrocutaneous site.) Extremities: No clubbing, No cyanosis Neuro: Normal speech, Sensation intact Psych/Mental Status: Mental status NL, Mood NL Vitals VITALS Vital Signs Date Time Temp Pulse Resp B/P (MAP) Pulse Ox O2 Delivery O2 Flow Rate FiO2 03/04/19 12:52 16 Room Air 03/04/19 11:47 100 03/04/19 11:00 98.6 114 108/53 (71) 98.6 Labs Labs Laboratory Tests Test 03/03/19 17:55 White Blood Count 5.4 x10^3/uL (4.0-11.0) Red Blood Count 2.57 x10^6/uL (3.50-5.40) Hemoglobin 8.8 g/dL (12.0-15.5) Hematocrit 26.2 % (36.0-47.0) Mean Corpuscular Volume 102 fL (79-100) Mean Corpuscular Hemoglobin 34 pg (25-35) Mean Corpuscular Hemoglobin Concent 34 g/dL (31-37) Red Cell Distribution Width 17.6 % (11.5-14.5) Platelet Count 189 x10^3/uL (140-400) Neutrophils (%) (Auto) 49 % (31-73) Lymphocytes (%) (Auto) 38 % (24-48) Monocytes (%) (Auto) 12 % (0-9) Eosinophils (%) (Auto) 1 % (0-3) Basophils (%) (Auto) 0 % (0-3) Neutrophils # (Auto) 2.7 x10^3/uL (1.8-7.7) Lymphocytes # (Auto) 2.1 x10^3/uL (1.0-4.8) Monocytes # (Auto) 0.6 x10^3/uL (0.0-1.1) Eosinophils # (Auto) 0.0 x10^3/uL (0.0-0.7) Basophils # (Auto) 0.0 x10^3/uL (0.0-0.2) Prothrombin Time 15.3 SEC (11.7-14.0) Prothromb Time International Ratio 1.2 (0.8-1.1) Activated Partial Thromboplast Time 32 SEC (24-38) Sodium Level 129 mmol/L (136-145) Potassium Level 3.5 mmol/L (3.5-5.1) Chloride Level 100 mmol/L (98-107) Carbon Dioxide Level 23 mmol/L (21-32) Anion Gap 6 (6-14) Blood Urea Nitrogen 27 mg/dL (7-20) Creatinine 1.1 mg/dL (0.6-1.0) Estimated GFR (Cockcroft-Gault) 51.0 BUN/Creatinine Ratio 25 (6-20) Glucose Level 111 mg/dL (70-99) Lactic Acid Level 1.9 mmol/L (0.4-2.0) Calcium Level 7.5 mg/dL (8.5-10.1) Total Bilirubin 0.3 mg/dL (0.2-1.0) Aspartate Amino Transf (AST/SGOT) 40 U/L (15-37) Alanine Aminotransferase (ALT/SGPT) 21 U/L (14-59) Alkaline Phosphatase 171 U/L (46-116) Creatine Kinase 32 U/L (26-192) Total Protein 5.8 g/dL (6.4-8.2) Albumin 1.2 g/dL (3.4-5.0) Albumin/Globulin Ratio 0.3 (1.0-1.7) Lipase 64 U/L (73-393) Laboratory Tests Test 03/03/19 17:55 White Blood Count 5.4 x10^3/uL (4.0-11.0) Red Blood Count 2.57 x10^6/uL (3.50-5.40) Hemoglobin 8.8 g/dL (12.0-15.5) Hematocrit 26.2 % (36.0-47.0) Mean Corpuscular Volume 102 fL (79-100) Mean Corpuscular Hemoglobin 34 pg (25-35) Mean Corpuscular Hemoglobin Concent 34 g/dL (31-37) Red Cell Distribution Width 17.6 % (11.5-14.5) Platelet Count 189 x10^3/uL (140-400) Neutrophils (%) (Auto) 49 % (31-73) Lymphocytes (%) (Auto) 38 % (24-48) Monocytes (%) (Auto) 12 % (0-9) Eosinophils (%) (Auto) 1 % (0-3) Basophils (%) (Auto) 0 % (0-3) Neutrophils # (Auto) 2.7 x10^3/uL (1.8-7.7) Lymphocytes # (Auto) 2.1 x10^3/uL (1.0-4.8) Monocytes # (Auto) 0.6 x10^3/uL (0.0-1.1) Eosinophils # (Auto) 0.0 x10^3/uL (0.0-0.7) Basophils # (Auto) 0.0 x10^3/uL (0.0-0.2) Prothrombin Time 15.3 SEC (11.7-14.0) Prothromb Time International Ratio 1.2 (0.8-1.1) Activated Partial Thromboplast Time 32 SEC (24-38) Sodium Level 129 mmol/L (136-145) Potassium Level 3.5 mmol/L (3.5-5.1) Chloride Level 100 mmol/L (98-107) Carbon Dioxide Level 23 mmol/L (21-32) Anion Gap 6 (6-14) Blood Urea Nitrogen 27 mg/dL (7-20) Creatinine 1.1 mg/dL (0.6-1.0) Estimated GFR (Cockcroft-Gault) 51.0 BUN/Creatinine Ratio 25 (6-20) Glucose Level 111 mg/dL (70-99) Lactic Acid Level 1.9 mmol/L (0.4-2.0) Calcium Level 7.5 mg/dL (8.5-10.1) Total Bilirubin 0.3 mg/dL (0.2-1.0) Aspartate Amino Transf (AST/SGOT) 40 U/L (15-37) Alanine Aminotransferase (ALT/SGPT) 21 U/L (14-59) Alkaline Phosphatase 171 U/L (46-116) Creatine Kinase 32 U/L (26-192) Total Protein 5.8 g/dL (6.4-8.2) Albumin 1.2 g/dL (3.4-5.0) Albumin/Globulin Ratio 0.3 (1.0-1.7) Lipase 64 U/L (73-393) Images Images CT a/p with ascites. Suspect fluid collection seen replacing head of pancreas is hepaticojejunostomy Assessment/Plan Assessment/Plan abd pain, liver disease appears reasonably stable with improved mental status, normal WBC, essentially normal LFTs. Agree with paracentesis, given liver disease and ascites. Hopefully, gastrocutaneous fistula will close with improvement in ascites and nutritional status, but may required surgical repair, but would favor maximizing nutritional status first. Favor consideration of rehab or retirement, as pt is high risk for readmission and appears to have failure to thrive on her own. Thanks for consult! HÉCTOR RANDALL MD Mar 04, 2019 13:09
--- NOTE | 2019-03-04 13:30 | SNU/HH DC ---
DISCHARGE WITH HOME HEALTH DISCHARGE INFORMATION: Discharge Date: Mar 04, 2019 Final Diagnosis: Problems Medical Problems: (1) Abdominal pain Status: Acute (2) Ascites Status: Acute (3) History of pancreatic cancer Status: Acute Condition on Discharge: Stable CODE STATUS: Code Status: Full HOME HEALTH: Face to Face: I certify this patient is under my care and that I, or a nurse practitioner or physician's conference assistant working with me, had a face to face encounter that meets the physician face to face encounter requirements with this patient on 03/04/19. Medical Complications: Falls, Other (Cirrhosis, pancreatic cancer) RN For Eval/Treatment: Yes Physical Therapy For: Evalulation/Treatment Occupational Therapy For: Evaluation/Treatment Home Health Aide For: Self-care Pt Meets Homebound Status: Extreme weakness w/ amb. POST DISCHARGE ORDERS: Activity Instructions for Disc: Activity as tolerated Weight Bearing Status after Di: As tolerated Bathing Instructions: Shower-keep dressing dry, No Tub Bath until see DIET AFTER DISCHARGE: Regular Wound/Incision Care: Keep wound/cast CDI CHECKS AFTER DISCHARGE: Checks after discharge: Check blood press - daily, Check your Temp as needed TREATMENT/EQUIPMENT ORDERS: Adaptive Equipment Issued: None CERTIFICATION STATEMENT: Certification Statement: Certification Statement: Based on the above finding, I certify that this patient is confined to the home and needs intermittent intermediate care, physical therapy and/or speech therapy, or continues to need occupational therapy.~ This patient is under my care, and I have initiated the establishment of the plan of care.~ This patient will be followed by myself or a community physician who will periodically review the plan of care. Home Meds Active Scripts Fentanyl (FENTANYL 25mcg/hr) 1 Each Patch.td72, 1 PATCH TD Q3DAYS for Pancreatic cancer pain for 30 Days, #10 PATCH Prov:TAMAR CHAMPAGNE MD 03/04/19 Hydrocodone Bit/Acetaminophen (HYDROCODONE-APAP 5-325 ) 1 Tab Tablet, 1 TAB PO PRN Q6HRS PRN for PAIN for 30 Days, #120 TAB 0 Refills Prov:TAMAR CHAMPAGNE MD 03/04/19 Lactulose (LACTULOSE) 20 Gm/30 Ml Solution, 20 GM PO PRN TID PRN for CONSTIPATION for 30 Days, #300 MISC 2 Refills Prov:TAMAR CHAMPAGNE MD 01/23/19 Ondansetron Hcl (ZOFRAN) 4 Mg Tablet, 1 TAB PO Q6HRS for nausea for 30 Days, #120 TAB Prov:TAMAR CHAMPAGNE MD 01/23/19 Pantoprazole Sodium (PANTOPRAZOLE SODIUM ) 40 Mg Tablet.dr, 40 MG PO DAILYAC for Reflux for 30 Days, #30 TAB.SR Prov:TAMAR CHAMPAGNE MD 01/22/19 Lorazepam (LORAZEPAM) 1 Mg Tablet, 1 MG PO PRN Q6HRS PRN for ANXIETY / AGITATION for 6 Days, #24 TAB Prov:TAMAR CHAMPAGNE MD 01/22/19 Reported Medications Albuterol Sulfate (PROAIR HFA INHALER) 8.5 Gm Hfa.aer.ad, 1 PUFF INH PRN Q6HRS PRN for SHORTNESS OF BREATH, INHALER 0 Refills 01/26/19 Fluticasone/Umeclidin/Vilanter (Trelegy Ellipta 100-62.5-25) 1 Each Blst.w.dev, 1 PUFF PO DAILY for SOA 01/20/19 TAMAR CHAMPAGNE MD Mar 04, 2019 13:30
[2019-03-04 14:33] VITALS: BP 119/51
[2019-03-04 14:50] VITALS: BP 105/37
--- NOTE | 2019-03-04 15:20 | NUR ---
Discharge instructions and belongings reviewed with patient, verbalized understanding. Patient was escorted out via wheelchair by Vivi PUTNAM.
[2019-03-04 16:50] LABS: BF CLARITY HAZY; BF COLOR STRAW; BF SOURCE ASCITES
[2019-03-04 16:51] LABS: BF MON % 89 %; BF OTHER % 1 %; BF PMN % 10 %; BF RBC COUNT 125 /cmm (Not Established); BF WBC COUNT 190 /cmm (Not Established)
[2019-03-04] MEDS ORDERED: ENOXAPARIN 40 MG/0.4 ML SYRINGE. SQ SCH (21:00)
--- NOTE | 2019-03-06 08:00 | RAD ---
Ultrasound-guided paracentesis 03/06/2019 5:56 AM Procedure: The risks and benefits of the procedure were discussed the patient. Informed consent was obtained. A timeout procedure was performed. Sonographic evaluation of the abdomen was performed demonstrating ascites . The left lower quadrant was prepped and draped using maximum sterile barrier technique. 1% lidocaine without epinephrine was administered for local anesthesia. Real-time ultrasonographic guidance was used in passing a 5 Divehi Yueh catheter into the fluid collection. 3.2 L of serous ascites was removed. The catheter was removed and pressure held to achieve hemostasis. A sterile dressing was applied. Impression: Successful ultrasound-guided paracentesis
== END 2019-03-04 17:14 | disposition home health service (06) | DRG 947 ==
LOC: ER 16:06 → 4 NORTH 16:31
PROVIDERS: ADMIT Internal Medicine; ATTEND Internal Medicine
PROC: 0W9G3ZZ Drainage of Peritoneal Cavity, Percutaneous Approach (ICD-10-PCS; principal; 2019-03-04)
DX: G89.3 Neoplasm related pain (acute) (chronic) (principal); E43 Unspecified severe protein-calorie malnutrition; C25.9 Malignant neoplasm of pancreas, unspecified; E87.1 Hypo-osmolality and hyponatremia; K76.6 Portal hypertension; K31.6 Fistula of stomach and duodenum; K74.60 Unspecified cirrhosis of liver; R18.8 Other ascites; J44.9 Chronic obstructive pulmonary disease, unspecified; B18.2 Chronic viral hepatitis C; K21.9 Gastro-esophageal reflux disease without esophagitis; R41.0 Disorientation, unspecified; R16.1 Splenomegaly, not elsewhere classified; F41.9 Anxiety disorder, unspecified; K52.9 Noninfective gastroenteritis and colitis, unspecified; D63.8 Anemia in other chronic diseases classified elsewhere; F10.20 Alcohol dependence, uncomplicated; G62.9 Polyneuropathy, unspecified; E87.6 Hypokalemia; E78.5 Hyperlipidemia, unspecified; Z90.411 Acquired partial absence of pancreas; Z90.711 Acquired absence of uterus with remaining cervical stump; Z90.13 Acquired absence of bilateral breasts and nipples; Z85.3 Personal history of malignant neoplasm of breast; Z82.49 Family history of ischemic heart disease and other diseases of the circulatory system; Z82.5 Family history of asthma and other chronic lower respiratory diseases
CPT/HCPCS: 36415; 49083; 74177; 80053; 82150; 82550; 83605; 83690; 85025; 85610; 85730; 87040; 87071; 87075; 89050; 94640; 96374; 96375; J1170; J1650; J3010; J7030; J7620; Q0162; Q9967; 99285-25; G0378

== ENCOUNTER 2019-03-07 17:11 | Emergency (ER) | payer BC ==
[~2019-03-07 17:11] MED LIST changes: +FENT1PAT15 TD
== END 2019-03-07 18:05 | disposition left against medical advice (07) ==
LOC: ER 17:11
DX: Z53.21 Procedure and treatment not carried out due to patient leaving prior to being seen by health care provider (principal)